=== PATIENT | male | born 1960 | race Two or more races ===

== ENCOUNTER → 2016-12-15 | Outpatient (CLI) | payer MEDICARE ==
[2016-12-15 20:38] LABS: Basophils # (A) 0.2 k/uL (0-0.2); Basophils % (A) 2 %; CH 31.1; CHCM 33.2; Eosinophils # (A) 0.2 k/uL (0-0.7); Eosinophils % (A) 2 %; HCT 48.7 % (39.0-53.0); HDW 2.59; HGB 15.4 gm/dL (13.0-17.5); Luc # (Auto) 0.24; Luc % (Auto) 2; Lymphocytes # (A) 1.3 k/uL (1.0-4.8); Lymphocytes % (A) 13 %; MCH 29.8 pg (25.0-35.0); MCHC 31.7 g/dL (31.0-37.0); MCV 94.2 fL (80.0-100.0); Mean Platelet Volume 9.1; Monocytes # (A) 0.8 k/uL (0-1.0); Monocytes % (A) 8 %; Neutrophils # (A) 7.4 k/uL (1.3-7.7); Neutrophils % (A) 74 %; RBC 5.17 m/uL (4.30-5.90); RDW 14.3 % (11.5-15.5); WBC (Perox) 9.61
[2016-12-15 20:39] LABS: ALT 37 U/L (21-72); AST 24 U/L (17-59); Alkaline Phosphatase 59 U/L (38-126); Anion Gap 7 mmol/L; Blood Urea Nitrogen 17 mg/dL (9-20); Calcium 9.4 mg/dL (8.4-10.2); Carbon Dioxide 33 mmol/L (22-30); Chloride 102 mmol/L (98-107); Cholesterol 146 mg/dL (<200); Glucose 89 mg/dL (74-99); HDL Cholesterol 54 mg/dL (40-60); Non-African American GFR(MDRD) >60 (>60 ml/min/1.73 sqM); Potassium 4.8 mmol/L (3.5-5.1); Sodium 142 mmol/L (137-145); Total Bilirubin 0.6 mg/dL (0.2-1.3); Total Protein 6.3 g/dL (6.3-8.2); Triglycerides 128 mg/dL (<150)
[2016-12-15 21:04] LABS: Hemoglobin A1C 5.6 % (4.2-6.1)
== END | disposition home or self-care (01) ==
LOC: MMGSC 14:59
PROVIDERS: ATTEND Family Medicine
DX: E11.9 Type 2 diabetes mellitus without complications (principal); I50.9 Heart failure, unspecified; Z12.5 Encounter for screening for malignant neoplasm of prostate; I10 Essential (primary) hypertension
CPT/HCPCS: 84439; 80053; 80061; 83036; 84443; 85025; 36415; G0103; 99214

== ENCOUNTER → 2017-02-22 | Outpatient (CLI) | payer MEDICARE | LOC: MMGSC 16:46 | PROVIDERS: ATTEND Family Medicine | DX: R50.9 Fever, unspecified (principal) | CPT/HCPCS: 87086; 99214 ==

== ENCOUNTER 2018-04-09 19:17 | Inpatient (IN) | payer MEDICARE, OTHER ==
--- NOTE | 2018-04-09 20:11 | XR ---
EXAMINATION TYPE: XR KUB DATE OF EXAM: 04/09/2018 COMPARISON: NONE HISTORY: Foreign body in rectum TECHNIQUE: One view abdominal series FINDINGS: The osseous structures are intact. The bowel gas pattern is nonspecific. Curvature the spine noted a nd there is a device overlying the pelvis. Exact location the device is uncertain. May represent repo rt of foreign body. Arthropathy of the hips. IMPRESSION: 1. There is a device overlying the pelvis exact location uncertain likely represents the foreign body suspected within the rectum or bowel.
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
[2018-04-09 20:56] LABS: Basophils % (A) 0 %; Eosinophils # (A) 0.1 k/uL (0-0.7); Eosinophils % (A) 1 %; HCT 40.7 % (39.0-53.0); HGB 13.5 gm/dL (13.0-17.5); Lymphocytes % (A) 10 %; MCH 29.8 pg (25.0-35.0); MCHC 33.2 g/dL (31.0-37.0); MCV 89.8 fL (80.0-100.0); Mean Platelet Volume 7.6; Monocytes # (A) 0.7 k/uL (0-1.0); Monocytes % (A) 7 %; Neutrophils # (A) 8.1 k/uL (1.3-7.7); Neutrophils % (A) 80 %; Platelet Count 216 k/uL (150-450); RBC 4.53 m/uL (4.30-5.90); RDW 15.1 % (11.5-15.5)
[2018-04-09] MEDS ORDERED: NALOXONE 0.4 MG/ML 1 ML VIAL IV PRN ×2 (21:01→23:31)
[2018-04-09 21:04] LABS: INR 1.1 (<1.2); Prothrombin Time 10.4 sec (9.0-12.0)
[2018-04-09 21:07] LABS: ALT 31 U/L (21-72); AST 22 U/L (17-59); Albumin 3.2 g/dL (3.5-5.0); Alkaline Phosphatase 56 U/L (38-126); Anion Gap 6 mmol/L; Blood Urea Nitrogen 17 mg/dL (9-20); Calcium 9.2 mg/dL (8.4-10.2); Carbon Dioxide 39 mmol/L (22-30); Chloride 97 mmol/L (98-107); Digoxin 0.7 ng/mL; Glucose 120 mg/dL (74-99); Magnesium 1.9 mg/dL (1.6-2.3); Potassium 3.9 mmol/L (3.5-5.1); Sodium 142 mmol/L (137-145); Total Bilirubin 0.7 mg/dL (0.2-1.3); Total Protein 5.7 g/dL (6.3-8.2)
[2018-04-09] MEDS ORDERED: SODIUM CHLORIDE 0.9% 1,000 ML IV SCH (21:15)
[2018-04-09] MEDS ORDERED: fentaNYL (PF) 50 MCG/ML 2 ML AMP ONE (21:50)
[2018-04-09] MEDS ORDERED: DEXAMETHASONE SOD PHOS (MDV) 100 MG/10 ML VIAL ONE (21:50)
[2018-04-09] MEDS ORDERED: ROCURONIUM BROMIDE 10 MG/ML 10 ML VIAL IV ONE (21:50)
[2018-04-09] MEDS ORDERED: IV FLUID CONTINUATION 900 ML IV ONE ×2 (21:50)
[2018-04-09] MEDS ORDERED: HEPARIN SODIUM,PORCINE 5,000 UNIT/ML 1 ML VIAL ONE (21:50)
[2018-04-09] MEDS ORDERED: SUCCINYLCHOLINE CHLORIDE 100 MG/5 ML SYR IV ONE (21:50)
[2018-04-09] MEDS ORDERED: LIDOCAINE 1% INJ 10MG/ML (20 ML MDV) ONE (21:50)
[2018-04-09] MEDS ORDERED: PROPOFOL 10 MG/ML 20 ML VIAL IV ONE (21:50)
[2018-04-09] MEDS ORDERED: metroNIDAZOLE-NS PMX 500 MG in SALINE 1 100ML.BAG IVPB STA (21:50)
[2018-04-09] MEDS ORDERED: MIDAZOLAM 2 MG/2 ML VIAL ONE (21:50)
--- NOTE | 2018-04-09 21:56 | P.GSHP ---
History of Present Illness H&P Date: 04/09/18 Chief Complaint: Rectosigmoid foreign body 57-year-old male presents to the ER by EMS with complaints of a rectal foreign body. Apparently this was a shaving cream can and apparently this occurred earlier today. Patient is having some mild pressure sensation in the left lower quadrant. X-rays show this to be transversely located in the lower pelvis likely in the proximal rectum distal sigmoid region. Denies rectal bleeding. No nausea or vomiting. White blood cell count normal. He is afebrile. Heart rate in the low 100s. Patient takes Pradaxa but took his last dose yesterday afternoon or evening. Patient has multiple other comorbidities including morbid obesity with a BMI of 56. His only abdominal surgery as a sleeve gastrectomy performed 6-7 years ago. - Review of Systems Comment: The patient denies any acute changes in vision or hearing, no dysphagia or odynophagia, no chest pain or shortness of breath, no dysuria or hematuria, no headache, no runny nose, no rectal bleeding or melena, no unexplained weight loss Past Medical History Past Medical History: Atrial Fibrillation, Heart Failure, COPD, Diabetes Mellitus, GERD/Reflux, Hyperlipidemia, Hypertension, Neurologic Disorder, Osteoarthritis (OA), Sleep Apnea/CPAP/BIPAP Additional Past Medical History / Comment(s): NIDDM, bilateral lower leg and feet neuropathy, gout-travels everywhere per pt History of Any Multi-Drug Resistant Organisms: MRSA Date of last positivie culture/infection: 2005 or 2007 per pt-tx while pt lived in [place] MDRO Source:: Low back Past Surgical History: Adenoidectomy, Tonsillectomy Additional Past Surgical History / Comment(s): 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 Past Anesthesia/Blood Transfusion Reactions: No Reported Reaction Past Psychological History: No Psychological Hx Reported, Anxiety Smoking Status: Former smoker Past Alcohol Use History: Rare Past Drug Use History: Marijuana - Past Family History Father Family Medical History: Coronary Artery Disease (CAD) (Father at age of 74 from CAD.), Diabetes Mellitus Additional Family Medical History / Comment(s): Father had heart disease. He at age 74 of possible a [place]-pt not sure. Mother Family Medical History: Congestive Heart Failure (CHF) (Mother at age of 72 from congestive heart failure she also has CAD and COPD), COPD, Coronary Artery Disease (CAD) Additional Family Medical History / Comment(s): Mother had heart problems. She at age 72 yrs. She had osteoporosis. Brother(s) Family Medical History: No Reported History (Patient has one brother no major medical problems) Sister(s) Family Medical History: Diabetes Mellitus (Patient has one sister with diabetes mellitus type 2) Daughter(s) Family Medical History: No Reported History (Patient has 2 daughters no major medical problems) Son(s) Family Medical History: No Reported History (Patient has 2 sons no major medical problems and also he has one stepson) Medications and Allergies Home Medications Medication Instructions Recorded Confirmed Type Allopurinol [Zyloprim] 100 mg PO BID 02/10/16 04/09/18 History Budesonide/Formoterol Fumarate 2 puff INHALATION RT-BID 02/10/16 04/09/18 History [Symbicort 80-4.5 Mcg Inhaler] Dabigatran [Pradaxa] 150 mg PO BID 02/10/16 04/09/18 History Fluticasone/Salmeterol [Advair 1 puff INHALATION RT-BID 02/10/16 04/09/18 History 250-50 Diskus] Fluticasone/Vilanterol [Breo 1 puff INHALATION RT-DAILY 02/10/16 04/09/18 History Ellipta 100-25 Mcg Inhaler] Furosemide [Lasix] 80 mg PO BID 02/10/16 04/09/18 History Hydrocodone/Acetaminophen [Blanco 1 tab PO BID 02/10/16 04/09/18 History 7.5-325] Omeprazole [PriLOSEC] 20 mg PO AC-BID 02/10/16 04/09/18 History Simethicone [Gas-X] 125 mg PO QID 02/10/16 04/09/18 History Simvastatin [Zocor] 20 mg PO HS 02/10/16 04/09/18 History Digoxin [Lanoxin] 125 mcg PO DAILY 02/11/16 04/09/18 History glipiZIDE [Glucotrol] 5 mg PO AC-BRKFST 02/11/16 04/09/18 History Ammonium Lactate Lotion 1 applic TOPICAL BID #1 bottle 02/14/16 04/09/18 Rx [Lac-Hydrin 12% Lotion] Gabapentin [Neurontin] 300 mg PO HS #30 cap 02/14/16 04/09/18 Rx Lactulose [Cephulac] 20 gm PO BID #900 ml 02/14/16 04/09/18 Rx Levofloxacin [Levaquin] 750 mg PO HS #2 tab 02/14/16 04/09/18 Rx Metoprolol Tartrate [Lopressor] 50 mg PO BID #60 tab 02/14/16 04/09/18 Rx Montelukast [Singulair] 10 mg PO HS #30 tab 02/14/16 04/09/18 Rx Potassium Chloride [Klor-Con 20] 40 meq PO QAM #60 tab.er.prt 02/14/16 04/09/18 Rx Spironolactone [Aldactone] 25 mg PO BID #60 tab 02/14/16 04/09/18 Rx clonazePAM [KlonoPIN] 1 mg PO BID #0 02/14/16 04/09/18 Rx predniSONE 0 mg PO DIRECTED #40 tab 02/14/16 04/09/18 Rx Allergies Allergy/AdvReac Type Severity Reaction Status Date / Time No Known Allergies Allergy Verified 04/09/18 19:24 Surgical - Exam Vital Signs Temp Pulse Resp BP Pulse Ox 98.1 F 103 H 20 153/92 93 L 04/09/18 19:19 04/09/18 19:19 04/09/18 19:19 04/09/18 19:19 04/09/18 19:19 Physical exam: General: Well-developed, well-nourished HEENT: Normocephalic, sclerae nonicteric Abdomen: Mild left lower quadrant tenderness, nondistended Extremities: No edema Neuro: Alert and oriented Results - Labs 04/09/18 20:46 04/09/18 20:46 Abnormal Lab Results - Last 24 Hours (Table) 04/09/18 04/09/18 Range/Units 20:46 20:46 Neutrophils # 8.1 H (1.3-7.7) k/uL Chloride 97 L (98-107) mmol/L Carbon Dioxide 39 H (22-30) mmol/L Glucose 120 H (74-99) mg/dL Total Protein 5.7 L (6.3-8.2) g/dL Albumin 3.2 L (3.5-5.0) g/dL Diabetes panel 04/09/18 Range/Units 20:46 Sodium 142 (137-145) mmol/L Potassium 3.9 (3.5-5.1) mmol/L Chloride 97 L (98-107) mmol/L Carbon Dioxide 39 H (22-30) mmol/L BUN 17 (9-20) mg/dL Creatinine 1.00 (0.66-1.25) mg/dL Glucose 120 H (74-99) mg/dL Calcium 9.2 (8.4-10.2) mg/dL AST 22 (17-59) U/L ALT 31 (21-72) U/L Alkaline Phosphatase 56 (38-126) U/L Total Protein 5.7 L (6.3-8.2) g/dL Albumin 3.2 L (3.5-5.0) g/dL Calcium panel 04/09/18 Range/Units 20:46 Calcium 9.2 (8.4-10.2) mg/dL Albumin 3.2 L (3.5-5.0) g/dL Pituitary panel 04/09/18 Range/Units 20:46 Sodium 142 (137-145) mmol/L Potassium 3.9 (3.5-5.1) mmol/L Chloride 97 L (98-107) mmol/L Carbon Dioxide 39 H (22-30) mmol/L BUN 17 (9-20) mg/dL Creatinine 1.00 (0.66-1.25) mg/dL Glucose 120 H (74-99) mg/dL Calcium 9.2 (8.4-10.2) mg/dL Adrenal panel 04/09/18 Range/Units 20:46 Sodium 142 (137-145) mmol/L Potassium 3.9 (3.5-5.1) mmol/L Chloride 97 L (98-107) mmol/L Carbon Dioxide 39 H (22-30) mmol/L BUN 17 (9-20) mg/dL Creatinine 1.00 (0.66-1.25) mg/dL Glucose 120 H (74-99) mg/dL Calcium 9.2 (8.4-10.2) mg/dL Total Bilirubin 0.7 (0.2-1.3) mg/dL AST 22 (17-59) U/L ALT 31 (21-72) U/L Alkaline Phosphatase 56 (38-126) U/L Total Protein 5.7 L (6.3-8.2) g/dL Albumin 3.2 L (3.5-5.0) g/dL Assessment and Plan (1) Foreign body in rectosigmoid (junction) Narrative/Plan: Clinical scenario discussed in detail with the patient. Plan at this time is to proceed with attempts at removal of foreign body via rectum. This will be performed using general anesthesia with the patient in lithotomy. Flexible sigmoidoscopy will be utilized to help locate this foreign body. If this is too proximal and we are unable to bring this distally patient will require laparotomy and possible colotomy with either primary closure or colostomy. We will provide emergent dose of Pradaxa reversal in the form of idarucizumab. Risks of bleeding, infection, abscess, leak if a colotomy closure takes place, hernia, delayed perforation, coagulopathy from the Pradaxa reversal, UT, PE, DVT , and . Patient understands and wishes to proceed. Current Visit: Yes Status: Acute Code(s): T18.5XXA - FOREIGN BODY IN ANUS AND RECTUM, INITIAL ENCOUNTER SNOMED Code(s): 96051158
[2018-04-09] MEDS ORDERED: SODIUM CHLORIDE 0.9% 100 ML with ceFAZolin 3,000 MG IV ONE ×2 (22:15)
[2018-04-09] MEDS: metroNIDAZOLE-NS PMX 500 MG in SALINE 1 100ML.BAG IVPB STA ×2 (22:20→23:21)
[2018-04-09] MEDS ORDERED: ONDANSETRON 4 MG/2 ML VIAL IVP PRN (23:31)
--- NOTE | 2018-04-09 23:39 | P.OP ---
Date of Procedure: 04/09/18 Procedure(s) Performed: PREOPERATIVE DIAGNOSIS: Rectosigmoid foreign body POSTOPERATIVE DIAGNOSIS: Sigmoid colon foreign body PROCEDURE: Flexible sigmoidoscopy, exploratory laparotomy, colotomy, removal sigmoid colon foreign body SURGEON: Delta EBL: 25 mL ANESTHESIA: General COMPLICATIONS: None OPERATIVE PROCEDURE: Patient place in the operative table in the supine position. The patient was placed under general anesthesia. The patient was then placed in lithotomy. The flexible sigmoidoscope was inserted into the anus. There was some mild irritation of the rectal and distal sigmoid mucosa. The bottom of the canister was identified at 25 cm from the anal verge. There was no lip on the can to grasp it was decided at that point to proceed with laparotomy. The abdomen was prepped and draped in usual sterile fashion. A vertical incision was made extending just above the umbilicus.. The fascia was divided as well. Thankfully the foreign body was palpable immediately upon insertion into the abdominal cavity. In fact it was at the most superior aspect of the loop of the sigmoid colon. The colon here was of adequate diameter. The distal sigmoid colon and rectum was inspected and there was no evidence of serosal tears or perforation. A longitudinal colotomy took place after the bowel was clamped proximally. The foreign body was easily removed through that opening. The defect was then closed transversely using a running submucosal and mucosal layer of 3-0 Vicryl suture. A imbricating 3-0 GI silk Lambert searcher was then utilized in an interrupted fashion over that. There was air within the bowel and with the saline present in the abdomen I inspected for leak and none was seen. A portion of pericolonic fat was then tacked back over the closure. The diameter was in excess of what was present previously. Further irrigation took place. No bleeding was seen. The midline fascia was then reapproximated using 2 separate double-stranded #1 PDS sutures. A drain was placed anterior to the fascial closure exiting from the left lower quadrant and sutured to the skin using a 3-0 silk stitch. The subcutaneous tissues were closed using 3-0 Vicryl sutures. The skin was then closed using louise. Sterile dressings were then applied. DISPOSITION: Stable to recovery room
[2018-04-10] MEDS ORDERED: PROPOFOL 100 ML IV ONE (00:05)
[2018-04-10 00:06] LABS: Glucose,Whole Blood 123 mg/dL (75-99)
[2018-04-10] MEDS: D5-0.45% NACL WITH KCL 20MEQ/L 1,000 ML IV SCH ×3 (00:08→20:32)
[2018-04-10] MEDS: IDARUCIZUMAB 2.5 GM in EMPTY BAG 1 BAG IV SCH ×2 (00:54→08:10)
[2018-04-10 00:59] LABS: ABG Base Excess 13.6 mmol/L; ABG HCO3 39 mmol/L (21-25); ABG Oxygen Saturation 99.1 % (94-97); ABG PCO2 64 mmHg (35-45); ABG PH 7.39 (7.35-7.45); ABG PO2 311 mmHg (83-108); ABG TCO2 41 mmol/L (19-24)
[2018-04-10] MEDS: PIPERACILLIN-TAZOBACTAM 3.375 GM in DEXTROSE/WATER 1 50ML.BAG IVPB SCH ×4 (01:15→23:17)
[2018-04-10] MEDS: HEPARIN SODIUM,PORCINE 5,000 UNIT/ML 1 ML VIAL SQ SCH ×4 (01:16→23:16)
[2018-04-10] MEDS: PROPOFOL 1,000 MG in EMPTY BAG 1 BAG IV SCH ×13 (01:17→23:54)
--- NOTE | 2018-04-10 02:26 | XR ---
EXAMINATION TYPE: XR chest 1V portable DATE OF EXAM: 04/10/2018 COMPARISON: 07/13/2016 HISTORY: Intubation TECHNIQUE: Single frontal view of the chest is obtained. FINDINGS: Endotracheal tube has tip 4 to 5 cm from the wilbur. There is no gross heart failure. Ther e are chest leads. IMPRESSION: No heart failure. Endotracheal tube is in fairly good position. Cardiomegaly. No change.
[2018-04-10 05:06] LABS: Basophils % (A) 0 %; Eosinophils % (A) 0 %; HCT 45.9 % (39.0-53.0); HGB 14.8 gm/dL (13.0-17.5); Lymphocytes # (A) 0.6 k/uL (1.0-4.8); Lymphocytes % (A) 6 %; MCH 29.6 pg (25.0-35.0); MCHC 32.3 g/dL (31.0-37.0); MCV 91.7 fL (80.0-100.0); Mean Platelet Volume 7.3; Monocytes # (A) 0.5 k/uL (0-1.0); Monocytes % (A) 5 %; Neutrophils # (A) 8.5 k/uL (1.3-7.7); Neutrophils % (A) 88 %; Platelet Count 204 k/uL (150-450); RBC 5.01 m/uL (4.30-5.90); WBC 9.7 k/uL (3.8-10.6)
[2018-04-10] MEDS: HYDROmorphone 0.5 MG/0.5 ML SYRINGE IVP PRN ×3 (05:09→11:48)
[2018-04-10 05:21] LABS: ALT 29 U/L (21-72); AST 23 U/L (17-59); Albumin 3.5 g/dL (3.5-5.0); Alkaline Phosphatase 61 U/L (38-126); Anion Gap 10 mmol/L; Blood Urea Nitrogen 18 mg/dL (9-20); Calcium 8.9 mg/dL (8.4-10.2); Carbon Dioxide 35 mmol/L (22-30); Chloride 96 mmol/L (98-107); Glucose 167 mg/dL (74-99); Magnesium 1.9 mg/dL (1.6-2.3); Phosphorus 3.7 mg/dL (2.5-4.5); Potassium 4.6 mmol/L (3.5-5.1); Sodium 141 mmol/L (137-145); Total Bilirubin 0.6 mg/dL (0.2-1.3); Total Protein 6.1 g/dL (6.3-8.2)
[2018-04-10] MEDS ORDERED: Magnesium Replacement Protocol 1 EACH MISC MISCELLANE PRN (06:18)
[2018-04-10] MEDS: MAGNESIUM SULFATE-D5W PMX 1 GM in DEXTROSE/WATER 1 100ML.BAG IVPB SCH ×2 (06:31→09:22)
[2018-04-10 07:34] LABS: ABG HCO3 37 mmol/L (21-25); ABG Oxygen Saturation 88.6 % (94-97); ABG PCO2 63 mmHg (35-45); ABG PH 7.38 (7.35-7.45); ABG PO2 58 mmHg (83-108); ABG TCO2 39 mmol/L (19-24)
[2018-04-10] MEDS: PANTOPRAZOLE 40 MG/10 ML VIAL IV SCH (09:21)
[2018-04-10] MEDS: FUROSEMIDE 10 MG/ML 4 ML VIAL IV SCH ×2 (09:33→20:31)
[2018-04-10 10:57] LABS: Amorphous Sediment,Urine Rare /hpf; Appearance,Urine Clear (Clear); Bilirubin,Urine Negative (Negative); Blood,Urine Negative (Negative); Color,Urine Light Yellow; Glucose,Urine (UA) Negative (Negative); Ketones,Urine Negative (Negative); Leukocyte Esterase,Urine Trace (Negative); Mucus,Urine Rare /hpf; Nitrite,Urine Negative (Negative); Protein,Urine 1+ (Negative); RBC,Urine 2 /hpf (0-5); Specific Gravity,Urine 1.009 (1.001-1.035); Urobilinogen,Urine <2.0 mg/dL (<2.0); WBC,Urine 2 /hpf (0-5)
[2018-04-10] MEDS ORDERED: IPRATROPIUM-ALBUTEROL 3 ML NEB INHALATION PRN (11:20)
[2018-04-10] MEDS: IPRATROPIUM-ALBUTEROL 3 ML NEB INHALATION SCH ×4 (11:21→23:57)
[2018-04-10] MEDS: CHLORHEXIDINE GLUCONATE 15 ML CUP MUCOUS MEM SCH ×2 (11:48→20:31)
[2018-04-10] MEDS: hydrALAZINE HCL 20 MG/ML 1 ML VIAL IVP PRN ×2 (11:49→19:44)
[2018-04-10 11:54] LABS: Glucose,Whole Blood 152 mg/dL (75-99)
--- NOTE | 2018-04-10 12:31 | XR ---
EXAMINATION TYPE: XR chest 1V portable DATE OF EXAM: 04/10/2018 COMPARISON: 04/10/2018 HISTORY: Tube placement TECHNIQUE: Single frontal view of the chest is obtained. FINDINGS: NG tube appears with the tip in the left upper quadrant likely within the gastric fundus. Bilateral consolidation and pleural effusion noted. ET tube stable. Due to patient positioning rotati on assessment of the right upper lobe is nondiagnostic. Heart enlarged and stable. IMPRESSION: 1. Limited exam demonstrates the tip of the NG tube within the left upper quadrant likely within the gastric fundus. 2. Stable pleural-parenchymal changes.
--- NOTE | 2018-04-10 12:47 | P.PN ---
Subjective Progress Note Date: 04/10/18 Principal diagnosis: Sigmoid colon foreign-body Patient remains on the ventilator. Apparently attempts today at weaning were unsuccessful. He is hemostatically stable however. White blood cell count 9.7 hemoglobin 14.8. Objective - Vital Signs Vital signs: Vital Signs Temp 98.3 F 04/10/18 08:00 Pulse 77 04/10/18 11:39 Resp 16 04/10/18 10:00 BP 163/93 04/10/18 10:00 Pulse Ox 94 L 04/10/18 10:00 Intake & Output 04/09/18 04/10/18 04/10/18 18:59 06:59 18:59 Intake Total 1959.30 450 Output Total 490 550 Balance 1469.30 -100 Weight 192.777 kg Intake: IV 1662.5 450 D5-0.45% NaCl with KCl 750 450 20Meq/l 1,000 ml @ 50 mls /hr IV .Q20H NIKA Rx#: [id number] Piperacillin-Tazobactam 3 62.5 .375 gm In Dextrose/Water 1 50ml.bag @ 12.5 mls/hr IVPB Q8HR NIKA Rx#: [id number] Intake, IV Titration 296.80 Amount Propofol 1,000 mg In 296.80 Empty Bag 1 bag @ Titrate IV .Q0M NIKA Rx#: [id number] Output: Drainage 20 Left Lower Abdomen 20 Urine 450 550 Estimated Blood Loss 20 Other: Voiding Method Indwelling Catheter Indwelling Catheter - Exam Abdomen: Soft, nondistended, incision with dressing intact - Labs CBC & Chem 7: 04/10/18 04:45 04/10/18 04:45 Labs: Abnormal Lab Results - Last 24 Hours (Table) 04/09/18 04/09/18 04/10/18 Range/Units 20:46 20:46 00:02 Neutrophils # 8.1 H (1.3-7.7) k/uL Lymphocytes # (1.0-4.8) k/uL ABG pCO2 (35-45) mmHg ABG pO2 (83-108) mmHg ABG HCO3 (21-25) mmol/L ABG Total CO2 (19-24) mmol/L ABG O2 Saturation (94-97) % Chloride 97 L (98-107) mmol/L Carbon Dioxide 39 H (22-30) mmol/L Glucose 120 H (74-99) mg/dL POC Glucose (mg/dL) 123 H (75-99) mg/dL Total Protein 5.7 L (6.3-8.2) g/dL Albumin 3.2 L (3.5-5.0) g/dL Urine Protein (Negative) Ur Leukocyte Esterase (Negative) Amorphous Sediment (None) /hpf Urine Mucus (None) /hpf 04/10/18 04/10/18 04/10/18 Range/Units 00:52 04:45 04:45 Neutrophils # 8.5 H (1.3-7.7) k/uL Lymphocytes # 0.6 L (1.0-4.8) k/uL ABG pCO2 64 H (35-45) mmHg ABG pO2 311 H (83-108) mmHg ABG HCO3 39 H (21-25) mmol/L ABG Total CO2 41 H (19-24) mmol/L ABG O2 Saturation 99.1 H (94-97) % Chloride 96 L (98-107) mmol/L Carbon Dioxide 35 H (22-30) mmol/L Glucose 167 H (74-99) mg/dL POC Glucose (mg/dL) (75-99) mg/dL Total Protein 6.1 L (6.3-8.2) g/dL Albumin (3.5-5.0) g/dL Urine Protein (Negative) Ur Leukocyte Esterase (Negative) Amorphous Sediment (None) /hpf Urine Mucus (None) /hpf 04/10/18 04/10/18 04/10/18 Range/Units 07:17 10:45 11:53 Neutrophils # (1.3-7.7) k/uL Lymphocytes # (1.0-4.8) k/uL ABG pCO2 63 H (35-45) mmHg ABG pO2 58 L (83-108) mmHg ABG HCO3 37 H (21-25) mmol/L ABG Total CO2 39 H (19-24) mmol/L ABG O2 Saturation 88.6 L (94-97) % Chloride (98-107) mmol/L Carbon Dioxide (22-30) mmol/L Glucose (74-99) mg/dL POC Glucose (mg/dL) 152 H (75-99) mg/dL Total Protein (6.3-8.2) g/dL Albumin (3.5-5.0) g/dL Urine Protein 1+ H (Negative) Ur Leukocyte Esterase Trace H (Negative) Amorphous Sediment Rare H (None) /hpf Urine Mucus Rare H (None) /hpf Assessment and Plan (1) Foreign body in rectosigmoid (junction) Narrative/Plan: Continue weaning per pulmonary. Continue antibiotics. Keep nothing by mouth. Current Visit: Yes Status: Acute Code(s): T18.5XXA - FOREIGN BODY IN ANUS AND RECTUM, INITIAL ENCOUNTER SNOMED Code(s): 07652361
[2018-04-10] MEDS: INSULIN ASPART 100 UNIT/ML 1 ML 10 ML VIAL SQ SCH ×3 (12:53→23:49)
--- NOTE | 2018-04-10 13:16 | P.CNPUL ---
History of Present Illness Consult date: 04/10/18 Requesting physician: Jan Sorenson Reason for consult: other (Intensive care unit management patient is on mechanical ventilation.) Chief complaint: Rectal foreign body History of present illness: This is a 57-year-old white male with history of multiple medical problems including paroxysmal atrial fibrillation, COPD, and just of heart failure, morbid obesity, type 2 diabetes, hypertension, degenerative joint disease and osteoarthritis, obstructive sleep apnea syndrome, neuropathy, gout, patient presented to the ER last night with complaints of rectal foreign body. Patient came in with severe pressure sensation in the rectum, and pain in the left lower quadrant. X-rays of the abdomen showed transverse location of the shaving cream can in the lower pelvis I cleaned in the proximal rectum/distal sigmoid region. There was no evidence of rectal bleeding, no nausea no vomiting , he had no signs and symptoms of sepsis or infection. Patient was taken to the operating room, attempts was made to retrieve the foreign body with sigmoidoscopy, however this was unsuccessful. Hence the patient had initially flexible sigmoidoscopy, but this was followed by exploratory laparotomy colotomy removal of sigmoid colon foreign body. Patient required intubation and mechanical ventilation, transferred to the ICU from the operating room on mechanical ventilation, and I was asked to see him on consultation. Patient is presently sedated, on mechanical ventilation, and his arterial blood gases this morning is very marginal. PO2 was 58 pCO2 was 63 pH was 7.38 and this was on a 50% FiO2. Chest x-ray showed mostly bibasilar atelectasis and possibly small effusions, hence ventilator settings were changed, and felt that the patient is not quite ready to be weaned at this point. His PEEP was increased to 8, tidal volume was increased to 600 patient was kept on assist control rate of 16 and FiO2 at 50%. Repeat ABG is pending. Review of Systems ROS unobtainable: due to endotracheal tube Past Medical History Past Medical History: Atrial Fibrillation, Heart Failure, COPD, Diabetes Mellitus, GERD/Reflux, Hyperlipidemia, Hypertension, Neurologic Disorder, Osteoarthritis (OA), Sleep Apnea/CPAP/BIPAP Additional Past Medical History / Comment(s): NIDDM, bilateral lower leg and feet neuropathy, gout-travels everywhere per pt History of Any Multi-Drug Resistant Organisms: MRSA Date of last positivie culture/infection: 2005 or 2007 per pt-tx while pt lived in [place] MDRO Source:: Low back Past Surgical History: Adenoidectomy, Tonsillectomy Additional Past Surgical History / Comment(s): 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 Past Anesthesia/Blood Transfusion Reactions: No Reported Reaction Past Psychological History: No Psychological Hx Reported, Anxiety Smoking Status: Former smoker Past Alcohol Use History: Rare Past Drug Use History: Marijuana - Past Family History Father Family Medical History: Coronary Artery Disease (CAD) (Father at age of 74 from CAD.), Diabetes Mellitus Additional Family Medical History / Comment(s): Father had heart disease. He at age 74 of possible a SD-pt not sure. Mother Family Medical History: Congestive Heart Failure (CHF) (Mother at age of 72 from congestive heart failure she also has CAD and COPD), COPD, Coronary Artery Disease (CAD) Additional Family Medical History / Comment(s): Mother had heart problems. She at age 72 yrs. She had osteoporosis. Brother(s) Family Medical History: No Reported History (Patient has one brother no major medical problems) Sister(s) Family Medical History: Diabetes Mellitus (Patient has one sister with diabetes mellitus type 2) Daughter(s) Family Medical History: No Reported History (Patient has 2 daughters no major medical problems) Son(s) Family Medical History: No Reported History (Patient has 2 sons no major medical problems and also he has one stepson) Medications and Allergies Home Medications Medication Instructions Recorded Confirmed Type Allopurinol [Zyloprim] 100 mg PO BID 02/10/16 04/09/18 History Budesonide/Formoterol Fumarate 2 puff INHALATION RT-BID 02/10/16 04/09/18 History [Symbicort 80-4.5 Mcg Inhaler] Dabigatran [Pradaxa] 150 mg PO BID 02/10/16 04/09/18 History Fluticasone/Salmeterol [Advair 1 puff INHALATION RT-BID 02/10/16 04/09/18 History 250-50 Diskus] Fluticasone/Vilanterol [Bre[place] 1 puff INHALATION RT-DAILY 02/10/16 04/09/18 History Ellipta 100-25 Mcg Inhaler] Furosemide [Lasix] 80 mg PO BID 02/10/16 04/09/18 History Hydrocodone/Acetaminophen [[place] 1 tab PO BID 02/10/16 04/09/18 History 7.5-325] Omeprazole [PriLOSEC] 20 mg PO AC-BID 02/10/16 04/09/18 History Simethicone [Gas-X] 125 mg PO QID 02/10/16 04/09/18 History Simvastatin [Zocor] 20 mg PO HS 02/10/16 04/09/18 History Digoxin [Lanoxin] 125 mcg PO DAILY 02/11/16 04/09/18 History glipiZIDE [Glucotrol] 5 mg PO AC-BRKFST 02/11/16 04/09/18 History Ammonium Lactate Lotion 1 applic TOPICAL BID #1 bottle 02/14/16 04/09/18 Rx [Lac-Hydrin 12% Lotion] Gabapentin [Neurontin] 300 mg PO HS #30 cap 02/14/16 04/09/18 Rx Lactulose [Cephulac] 20 gm PO BID #900 ml 02/14/16 04/09/18 Rx Levofloxacin [Levaquin] 750 mg PO HS #2 tab 02/14/16 04/09/18 Rx Metoprolol Tartrate [Lopressor] 50 mg PO BID #60 tab 02/14/16 04/09/18 Rx Montelukast [Singulair] 10 mg PO HS #30 tab 02/14/16 04/09/18 Rx Potassium Chloride [Klor-Con 20] 40 meq PO QAM #60 tab.er.prt 02/14/16 04/09/18 Rx Spironolactone [Aldactone] 25 mg PO BID #60 tab 02/14/16 04/09/18 Rx clonazePAM [KlonoPIN] 1 mg PO BID #0 02/14/16 04/09/18 Rx predniSONE 0 mg PO DIRECTED #40 tab 02/14/16 04/09/18 Rx Allergies Allergy/AdvReac Type Severity Reaction Status Date / Time No Known Allergies Allergy Verified 04/09/18 19:24 Physical Exam Vitals: Vital Signs Temp Pulse Resp BP Pulse Ox 04/10/18 11:39 77 04/10/18 11:21 92 04/10/18 10:00 85 16 163/93 94 L 04/10/18 09:00 79 20 156/89 94 L 04/10/18 08:00 98.3 F 78 21 166/100 93 L 04/10/18 07:00 82 18 171/88 91 L 04/10/18 06:00 95 17 152/92 99 04/10/18 05:00 80 19 170/98 99 04/10/18 04:00 97.6 F 81 17 135/72 91 L 04/10/18 03:00 79 16 126/65 94 L 04/10/18 02:30 79 15 110/72 92 L 04/10/18 02:00 74 16 119/67 93 L 04/10/18 01:30 90 16 122/77 92 L 04/10/18 01:20 92 16 127/66 93 L 04/10/18 01:10 92 16 126/72 97 04/10/18 01:00 70 16 126/72 100 04/10/18 00:50 69 16 124/79 100 04/10/18 00:40 72 16 121/78 100 04/10/18 00:30 78 16 99 04/10/18 00:20 80 16 130/73 100 04/10/18 00:10 77 16 135/84 97 04/10/18 00:02 97.7 F 126/74 04/09/18 23:33 101/67 04/09/18 21:23 98.7 F 101 H 20 159/71 98 04/09/18 20:24 100 18 155/67 97 04/09/18 19:19 98.1 F 103 H 20 153/92 93 L Intake and Output 04/09/18 04/10/18 04/10/18 22:59 06:59 14:59 Intake Total 150 1809.30 750 Output Total 490 550 Balance 150 1319.30 200 Intake: IV 150 1512.5 450 D5-0.45% NaCl with KCl 750 450 20Meq/l 1,000 ml @ 50 mls /hr IV .Q20H NIKA Rx#: [id number] Piperacillin-Tazobactam 3 62.5 .375 gm In Dextrose/Water 1 50ml.bag @ 12.5 mls/hr IVPB Q8HR NIKA Rx#: [id number] Intake, IV Titration 296.80 300 Amount Propofol 1,000 mg In 296.80 300 Empty Bag 1 bag @ Titrate IV .Q0M NIKA Rx#: [id number] Output: Drainage 20 Left Lower Abdomen 20 Urine 450 550 Estimated Blood Loss 20 Other: Voiding Method Indwelling Catheter Indwelling Catheter Weight 192.777 kg Physical Exam: Revealed a 57-year-old white male, obese, on mechanical ventilation, sedated, on propofol, in no distress. Head: Atraumatic, normocephalic. HEENT:[Neck is supple.] [No neck masses.] [No thyromegaly.] [No JVD.] PERRLA, EOMI, no icterus, endotracheal tube is intact, orogastric tube is intact. Chest: [Symmetrical chest expansion, diminished breath sounds at the bases minimal crackles at the bases noted. No rhonchi, no wheezes. Cardiac Exam: [Normal S1 and S2, no S3 gallop, no murmur.] Abdomen: [Obese, Soft, incision and dressing are intact, no rebound, no guarding. Diminished bowel sounds..] Extremities: [Chronic venous stasis changes noted bilaterally, 2+ bipedal edema , diminished distal pulses bilaterally.] Neurological Exam: Cannot be assessed, patient is fully sedated on propofol. Psychiatric: Cannot be assessed. Musculoskeletal cannot be assessed. Results - Laboratory Findings CBC and BMP: 04/10/18 04:45 04/10/18 04:45 ABG ABG pH 7.38 (7.35-7.45) 04/10/18 07:17 ABG pCO2 63 mmHg (35-45) H 04/10/18 07:17 ABG pO2 58 mmHg (83-108) L 04/10/18 07:17 ABG O2 Saturation 88.6 % (94-97) L 04/10/18 07:17 PT/INR, D-dimer PT 10.4 sec (9.0-12.0) 04/09/18 20:46 INR 1.1 (<1.2) 04/09/18 20:46 Abnormal lab findings: Abnormal Labs 04/09/18 04/09/18 04/10/18 20:46 20:46 00:02 Neutrophils # 8.1 H Lymphocytes # ABG pCO2 ABG pO2 ABG HCO3 ABG Total CO2 ABG O2 Saturation Chloride 97 L Carbon Dioxide 39 H Glucose 120 H POC Glucose (mg/dL) 123 H Total Protein 5.7 L Albumin 3.2 L Urine Protein Ur Leukocyte Esterase Amorphous Sediment Urine Mucus 04/10/18 04/10/18 04/10/18 00:52 04:45 04:45 Neutrophils # 8.5 H Lymphocytes # 0.6 L ABG pCO2 64 H ABG pO2 311 H ABG HCO3 39 H ABG Total CO2 41 H ABG O2 Saturation 99.1 H Chloride 96 L Carbon Dioxide 35 H Glucose 167 H POC Glucose (mg/dL) Total Protein 6.1 L Albumin Urine Protein Ur Leukocyte Esterase Amorphous Sediment Urine Mucus 04/10/18 04/10/18 04/10/18 07:17 10:45 11:53 Neutrophils # Lymphocytes # ABG pCO2 63 H ABG pO2 58 L ABG HCO3 37 H ABG Total CO2 39 H ABG O2 Saturation 88.6 L Chloride Carbon Dioxide Glucose POC Glucose (mg/dL) 152 H Total Protein Albumin Urine Protein 1+ H Ur Leukocyte Esterase Trace H Amorphous Sediment Rare H Urine Mucus Rare H - Diagnostic Findings Chest x-ray: image reviewed (As noted in HPI.) Assessment and Plan Assessment: Impression: 1 postoperative hypoxic and hypercapnic respiratory failure, unexpected, mostly related to COPD, morbid obesity, obesity hypoventilation syndrome, bibasilar atelectasis and possibly some component of diastolic congestive heart failure. 2 chronic obstructive pulmonary disease patient is usually on bronchodilators, and at times on prednisone, hence the patient will be placed back on DuoNeb, Pulmicort, and Perforomist. 3 postoperative atelectasis, expected. 4 suspect small bilateral pleural effusions secondary to diastolic congestive heart failure. 5 status post flexible sigmoidoscopy, exploratory laparotomy, colotomy, removal of sigmoid colon foreign body, postoperative day #1. 6 multiple comorbidities including paroxysmal atrial fibrillation, chronic congestive heart failure, diastolic in nature, type 2 diabetes, hyperlipidemia, benign essential hypertension, osteoarthritis, obstructive sleep apnea syndrome , and diabetic neuropathy. As well as gout. Recommendation: Clearly the patient is not ready for weaning at this point, hence I have made adjustments on his ventilator settings, increased the PEEP to 8, increased his tidal volume, adjusted his flow rates and his I: E ratio. Reviewed his peak and plateau pressures, patient will be kept on bronchodilators , antibiotics as per surgery, and we will address weeding and possibly extubation in the next 24 hours. In the meantime addressed the GI and DVT prophylaxis. Time with Patient: Greater than 30
--- NOTE | 2018-04-10 15:57 | P.CONS ---
History of Present Illness - Reason for Consult Consult date: 04/10/18 Medical management for multiple comorbidities - Chief Complaint Rectal foreign body - History of Present Illness This is 57 years old morbidly obese male who presented to the emergency department with rectal pain patient admitted insertion of shaving cream can in the rectum and x-ray confirmed the diagnosis patient was taken to the operating room with exploratory laparotomy was done by Dr. Hyatt patient was kept on the ventilator due to difficulty weaning off the ventilator patient was admitted to the ICU and currently patient is sedated on full vent support with oxygen 50% and PEEP of 8 and respiratory rate of 16. Patient was following commands to the nursing staff when he was off sedation earlier this morning. Patient has compensated past medical history including paroxysmal atrial fibrillation on a blood thinner at home, COPD, congestive heart failure, morbid obesity, diabetes type 2 insulin-dependent, hypertension and hyperlipidemia. Patient had a history also of obstructive sleep apnea Review of Systems Unable to obtain due to sedation Past Medical History Past Medical History: Atrial Fibrillation, Heart Failure, COPD, Diabetes Mellitus, GERD/Reflux, Hyperlipidemia, Hypertension, Neurologic Disorder, Osteoarthritis (OA), Sleep Apnea/CPAP/BIPAP Additional Past Medical History / Comment(s): NIDDM, bilateral lower leg and feet neuropathy, gout-travels everywhere per pt History of Any Multi-Drug Resistant Organisms: MRSA Year Discovered:: 2005 or 2007 per pt-tx while pt lived in [place] MDRO Source:: Low back Past Surgical History: Adenoidectomy, Tonsillectomy Additional Past Surgical History / Comment(s): 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 Past Anesthesia/Blood Transfusion Reactions: No Reported Reaction Past Psychological History: No Psychological Hx Reported, Anxiety Smoking Status: Former smoker Past Alcohol Use History: Rare Past Drug Use History: Marijuana - Past Family History Father Family Medical History: Coronary Artery Disease (CAD) (Father at age of 74 from CAD.), Diabetes Mellitus Additional Family Medical History / Comment(s): Father had heart disease. He at age 74 of possible a OR-pt not sure. Mother Family Medical History: Congestive Heart Failure (CHF) (Mother at age of 72 from congestive heart failure she also has CAD and COPD), COPD, Coronary Artery Disease (CAD) Additional Family Medical History / Comment(s): Mother had heart problems. She at age 72 yrs. She had osteoporosis. Brother(s) Family Medical History: No Reported History (Patient has one brother no major medical problems) Sister(s) Family Medical History: Diabetes Mellitus (Patient has one sister with diabetes mellitus type 2) Daughter(s) Family Medical History: No Reported History (Patient has 2 daughters no major medical problems) Son(s) Family Medical History: No Reported History (Patient has 2 sons no major medical problems and also he has one stepson) Medications and Allergies Home Medications Medication Instructions Recorded Confirmed Type Allopurinol [Zyloprim] 100 mg PO BID 02/10/16 04/09/18 History Budesonide/Formoterol Fumarate 2 puff INHALATION RT-BID 02/10/16 04/09/18 History [Symbicort 80-4.5 Mcg Inhaler] Dabigatran [Pradaxa] 150 mg PO BID 02/10/16 04/09/18 History Fluticasone/Salmeterol [Advair 1 puff INHALATION RT-BID 02/10/16 04/09/18 History 250-50 Diskus] Furosemide [Lasix] 80 mg PO BID 02/10/16 04/09/18 History Hydrocodone/Acetaminophen [[place] 1 tab PO BID 02/10/16 04/09/18 History 7.5-325] Omeprazole [PriLOSEC] 20 mg PO AC-BID 02/10/16 04/09/18 History Simvastatin [Zocor] 20 mg PO HS 02/10/16 04/09/18 History Digoxin [Lanoxin] 125 mcg PO DAILY 02/11/16 04/09/18 History glipiZIDE [Glucotrol] 5 mg PO AC-BRKFST 02/11/16 04/09/18 History Gabapentin [Neurontin] 300 mg PO HS #30 cap 02/14/16 04/09/18 Rx Potassium Chloride [Klor-Con 20] 40 meq PO QAM #60 tab.er.prt 02/14/16 04/09/18 Rx clonazePAM [KlonoPIN] 1 mg PO BID #0 02/14/16 04/09/18 Rx Metoprolol Tartrate [Lopressor] 50 mg PO BID 04/10/18 04/10/18 History Allergies Allergy/AdvReac Type Severity Reaction Status Date / Time No Known Allergies Allergy Verified 04/10/18 13:23 Physical Exam Vitals: Vital Signs Temp Pulse Resp BP Pulse Ox 04/10/18 13:59 81 16 119/67 96 04/10/18 13:00 83 16 160/90 95 04/10/18 12:00 98.5 F 91 15 150/93 95 04/10/18 11:39 77 04/10/18 11:21 92 04/10/18 11:00 91 16 166/93 97 04/10/18 10:00 85 16 163/93 94 L 04/10/18 09:00 79 20 156/89 94 L 04/10/18 08:00 98.3 F 78 21 166/100 93 L 04/10/18 07:00 82 18 171/88 91 L 04/10/18 06:00 95 17 152/92 99 04/10/18 05:00 80 19 170/98 99 04/10/18 04:00 97.6 F 81 17 135/72 91 L 04/10/18 03:00 79 16 126/65 94 L 04/10/18 02:30 79 15 110/72 92 L 04/10/18 02:00 74 16 119/67 93 L 04/10/18 01:30 90 16 122/77 92 L 04/10/18 01:20 92 16 127/66 93 L 04/10/18 01:10 92 16 126/72 97 04/10/18 01:00 70 16 126/72 100 04/10/18 00:50 69 16 124/79 100 04/10/18 00:40 72 16 121/78 100 04/10/18 00:30 78 16 99 04/10/18 00:20 80 16 130/73 100 04/10/18 00:10 77 16 135/84 97 04/10/18 00:02 97.7 F 126/74 04/09/18 23:33 101/67 04/09/18 21:23 98.7 F 101 H 20 159/71 98 04/09/18 20:24 100 18 155/67 97 04/09/18 19:19 98.1 F 103 H 20 153/92 93 L Intake and Output 04/10/18 04/10/18 04/10/18 06:59 14:59 22:59 Intake Total 1809.30 900 Output Total 490 750 Balance 1319.30 150 Intake: IV 1512.5 600 D5-0.45% NaCl with KCl 750 600 20Meq/l 1,000 ml @ 50 mls /hr IV .Q20H NIKA Rx#: [id number] Piperacillin-Tazobactam 3 62.5 .375 gm In Dextrose/Water 1 50ml.bag @ 12.5 mls/hr IVPB Q8HR NIKA Rx#: [id number] Intake, IV Titration 296.80 300 Amount Propofol 1,000 mg In 296.80 300 Empty Bag 1 bag @ Titrate IV .Q0M NIKA Rx#: [id number] Output: Drainage 20 Left Lower Abdomen 20 Urine 450 750 Estimated Blood Loss 20 Other: Voiding Method Indwelling Catheter Indwelling Catheter Gen.: Sedated Heart: Normal S1-S2 Lungs: Coarse sounds bilaterally Abdomen: Soft, no tenderness, hypoactive bowel sounds incision seems to be clean and tach and dry dressing Skin: No new rash Psych: Sedated Neuro: Moving extremities spontaneously Results CBC & Chem 7: 04/10/18 04:45 04/10/18 04:45 Labs: Abnormal Lab Results - Last 24 Hours (Table) 04/09/18 04/09/18 04/10/18 Range/Units 20:46 20:46 00:02 Neutrophils # 8.1 H (1.3-7.7) k/uL Lymphocytes # (1.0-4.8) k/uL ABG pCO2 (35-45) mmHg ABG pO2 (83-108) mmHg ABG HCO3 (21-25) mmol/L ABG Total CO2 (19-24) mmol/L ABG O2 Saturation (94-97) % Chloride 97 L (98-107) mmol/L Carbon Dioxide 39 H (22-30) mmol/L Glucose 120 H (74-99) mg/dL POC Glucose (mg/dL) 123 H (75-99) mg/dL Total Protein 5.7 L (6.3-8.2) g/dL Albumin 3.2 L (3.5-5.0) g/dL Urine Protein (Negative) Ur Leukocyte Esterase (Negative) Amorphous Sediment (None) /hpf Urine Mucus (None) /hpf 04/10/18 04/10/18 04/10/18 Range/Units 00:52 04:45 04:45 Neutrophils # 8.5 H (1.3-7.7) k/uL Lymphocytes # 0.6 L (1.0-4.8) k/uL ABG pCO2 64 H (35-45) mmHg ABG pO2 311 H (83-108) mmHg ABG HCO3 39 H (21-25) mmol/L ABG Total CO2 41 H (19-24) mmol/L ABG O2 Saturation 99.1 H (94-97) % Chloride 96 L (98-107) mmol/L Carbon Dioxide 35 H (22-30) mmol/L Glucose 167 H (74-99) mg/dL POC Glucose (mg/dL) (75-99) mg/dL Total Protein 6.1 L (6.3-8.2) g/dL Albumin (3.5-5.0) g/dL Urine Protein (Negative) Ur Leukocyte Esterase (Negative) Amorphous Sediment (None) /hpf Urine Mucus (None) /hpf 04/10/18 04/10/18 04/10/18 Range/Units 07:17 10:45 11:53 Neutrophils # (1.3-7.7) k/uL Lymphocytes # (1.0-4.8) k/uL ABG pCO2 63 H (35-45) mmHg ABG pO2 58 L (83-108) mmHg ABG HCO3 37 H (21-25) mmol/L ABG Total CO2 39 H (19-24) mmol/L ABG O2 Saturation 88.6 L (94-97) % Chloride (98-107) mmol/L Carbon Dioxide (22-30) mmol/L Glucose (74-99) mg/dL POC Glucose (mg/dL) 152 H (75-99) mg/dL Total Protein (6.3-8.2) g/dL Albumin (3.5-5.0) g/dL Urine Protein 1+ H (Negative) Ur Leukocyte Esterase Trace H (Negative) Amorphous Sediment Rare H (None) /hpf Urine Mucus Rare H (None) /hpf Microbiology - Last 24 Hours (Table) 04/10/18 03:31 Gram Stain - Preliminary Sputum Sputum Culture - Preliminary Assessment and Plan Assessment: 1. Acute respiratory failure on vent support. 2. Morbid obesity with obstructive sleep apnea. 3. Foreign body in the rectum status post exploratory laparotomy. 4. Congestive heart failure. 5. COPD. 6. Paroxysmal atrial fibrillation. 7. Diabetes mellitus insulin-dependent. 8. Hypertension. 9. Hyperlipidemia. 10. GERD. 11. Generalized osteoarthritis. 12. Peripheral neuropathy. 13. Gout. 14. Remote history of smoking. We will continue full vent support wean off when appropriate as patient still having difficulty weaning and requiring higher repeat and higher oxygen level. We will continue with sedation and wean off as tolerated. We will continue with home medication and resume anticoagulation per general surgery recommendation. With continue with insulin sliding scale and consider nutritional evaluation and starting tube feeding per critical care recommendation
[2018-04-10 17:32] LABS: Glucose,Whole Blood 146 mg/dL (75-99)
[2018-04-10] MEDS: BUDESONIDE 1 MG/2 ML NEBU INHALATION SCH (19:39)
[2018-04-10] MEDS: FORMOTEROL FUMARATE 20 MCG/2 ML NEBU INHALATION SCH (19:39)
[2018-04-10] MEDS: HYDROcodone/APAP 7.5-325MG 1 EACH TAB PO SCH (20:31)
[2018-04-10] MEDS: ATORVASTATIN 10 MG TAB PO SCH (20:31)
[2018-04-10] MEDS: ALLOPURINOL 100 MG TAB PO SCH (20:31)
[2018-04-10] MEDS: METOPROLOL TARTRATE 50 MG TAB PO SCH (20:31)
[2018-04-10] MEDS: GABAPENTIN 300 MG CAP PO SCH (20:31)
[2018-04-10] MEDS: clonazePAM 1 MG TAB PO SCH (20:31)
[2018-04-10] MEDS ORDERED: HYDROmorphone 0.5 MG/0.5 ML SYRINGE IVP SCH (22:15)
[2018-04-10 23:25] LABS: Glucose,Whole Blood 142 mg/dL (75-99)
[2018-04-11] MEDS: PROPOFOL 1,000 MG in EMPTY BAG 1 BAG IV SCH ×5 (00:53→08:06)
[2018-04-11] MEDS: IPRATROPIUM-ALBUTEROL 3 ML NEB INHALATION SCH ×5 (03:27→19:05)
[2018-04-11] MEDS: HYDROmorphone 0.5 MG/0.5 ML SYRINGE IVP PRN ×3 (03:51→15:27)
[2018-04-11 04:40] LABS: Basophils % (A) 0 %; Eosinophils % (A) 0 %; HCT 38.4 % (39.0-53.0); HGB 12.7 gm/dL (13.0-17.5); Lymphocytes % (A) 10 %; MCH 30.1 pg (25.0-35.0); MCV 91.2 fL (80.0-100.0); Monocytes # (A) 0.7 k/uL (0-1.0); Monocytes % (A) 7 %; Neutrophils # (A) 8.1 k/uL (1.3-7.7); Neutrophils % (A) 81 %; Platelet Count 220 k/uL (150-450); RBC 4.21 m/uL (4.30-5.90); RDW 15.6 % (11.5-15.5); WBC 10.1 k/uL (3.8-10.6)
[2018-04-11 04:51] LABS: Calcium 8.6 mg/dL (8.4-10.2); Phosphorus 4.8 mg/dL (2.5-4.5); Potassium 4.3 mmol/L (3.5-5.1)
[2018-04-11 05:31] LABS: Glucose,Whole Blood 130 mg/dL (75-99)
[2018-04-11] MEDS: INSULIN ASPART 100 UNIT/ML 1 ML 10 ML VIAL SQ SCH ×3 (05:42→18:13)
[2018-04-11 07:14] LABS: ABG Base Excess 11.5 mmol/L; ABG HCO3 37 mmol/L (21-25); ABG Oxygen Saturation 97.5 % (94-97); ABG PCO2 61 mmHg (35-45); ABG PH 7.39 (7.35-7.45); ABG PO2 107 mmHg (83-108); ABG TCO2 38 mmol/L (19-24)
[2018-04-11] MEDS: FORMOTEROL FUMARATE 20 MCG/2 ML NEBU INHALATION SCH ×2 (07:27→19:05)
[2018-04-11] MEDS: BUDESONIDE 1 MG/2 ML NEBU INHALATION SCH ×2 (07:27→19:05)
[2018-04-11] MEDS: FUROSEMIDE 10 MG/ML 4 ML VIAL IV SCH ×2 (08:05→20:39)
[2018-04-11] MEDS: PANTOPRAZOLE 40 MG/10 ML VIAL IV SCH (08:05)
[2018-04-11] MEDS: HEPARIN SODIUM,PORCINE 5,000 UNIT/ML 1 ML VIAL SQ SCH ×2 (08:05→16:41)
[2018-04-11] MEDS: CHLORHEXIDINE GLUCONATE 15 ML CUP MUCOUS MEM SCH (08:05)
--- NOTE | 2018-04-11 08:21 | XR ---
EXAMINATION TYPE: XR chest 1V portable DATE OF EXAM: 04/11/2018 COMPARISON: 04/10/2018 HISTORY: Shortness of breath TECHNIQUE: Single frontal view of the chest is obtained. FINDINGS: NG tube again seen in the left upper quadrant with the tip overlying the gastric fundus. B ilateral consolidation and pleural effusion noted. Hypertrophic and degenerative change of the spine. Cardiomegaly and noted. Artifact limits the exam. IMPRESSION: Bilateral consolidation and pleural effusion. Correlate clinically.
[2018-04-11] MEDS: PIPERACILLIN-TAZOBACTAM 3.375 GM in DEXTROSE/WATER 1 50ML.BAG IVPB SCH ×2 (08:35→16:41)
[2018-04-11 08:57] LABS: ABG Base Excess 11.4 mmol/L; ABG HCO3 35 mmol/L (21-25); ABG Oxygen Saturation 98.2 % (94-97); ABG PCO2 50 mmHg (35-45); ABG PH 7.45 (7.35-7.45); ABG PO2 113 mmHg (83-108); ABG TCO2 37 mmol/L (19-24)
--- NOTE | 2018-04-11 10:02 | P.PN ---
Subjective Progress Note Date: 04/11/18 Principal diagnosis: Respiratory failure Progress note dated 04/11/2018 57-year-old male with a history of multiple medical problems including paroxysmal atrial fibrillation, COPD, heart failure, morbid obesity, diabetes, hypertension, DJD, sleep apnea syndrome, neuropathy, gout, apparently presented to the emergency room last night with complaints of rectal foreign body. Apparently x-rays of the abdomen showed a transverse location of a shaving cream can in the lower pelvis. There is no evidence of rectal bleeding. The patient went to the operating room and apparently attempts at removing the foreign body with flexible sigmoidoscopy was unsuccessful. Hence, the patient had an exploratory laparotomy and colotomy with removal of the sigmoid colon foreign body. The patient currently is on the volume assist control mode. Tidal volume 600 FiO2 is 50% PEEP is 8. Arterial blood gases show a PaO2 of 107 PaCO2 of 61 and pH 7.38. The patient is on a dextrose and half-normal saline IV with 20 of KCl at 50 mL an hour and on propofol at 65 mics per kilogram per minute. The patient has a endotracheal tube and OG tube in place. The patient is going to be placed on a pressure support of a CPAP of 5 once the fall is been discontinued. We'll see if we can wean and extubate the patient. Chest x-ray shows bilateral consolidation and pleural effusion. Laboratory data revealed a white count of 10.1 hemoglobin 12.7 hematocrit 38.4 and platelet count of 220,000. Sodium potassium are normal. Chloride 96 CO2 36 BUN/creatinine creatinine were 19 and 1.29 respectively. Microbiology is S4 negative. Objective - Vital Signs Vital signs: Vital Signs Temp 98.2 F 04/11/18 08:00 Pulse 104 H 04/11/18 09:00 Resp 28 H 04/11/18 09:00 BP 174/81 04/10/18 21:00 Pulse Ox 98 04/11/18 09:00 Intake & Output 04/10/18 04/11/18 04/11/18 18:59 06:59 18:59 Intake Total 1200 1300.857 250 Output Total 970 1005 315 Balance 230 295.857 -65 Weight 192.7 kg Intake: IV 800 550 150 D5-0.45% NaCl with KCl 800 550 150 20Meq/l 1,000 ml @ 50 mls /hr IV .Q20H [facility] Rx#: [id number] Intake, IV Titration 400 670.857 100 Amount Propofol 1,000 mg In 400 670.857 100 Empty Bag 1 bag @ Titrate IV .Q0M [facility] Rx#: [id number] Oral 80 Output: Drainage 20 Left Lower Abdomen 20 Urine 970 985 315 Other: Voiding Method Indwelling Catheter Indwelling Catheter Indwelling Catheter ABP, PAP, CO, CI - Last Documented Arterial Blood Pressure 150/80 - Exam No acute distress, patient is sedated with a endotracheal tube in place. HEENT examination is grossly unremarkable. Mucous membranes are moist. Neck supple. Full range of motion. No adenopathy thyromegaly or neck vein distention. Cardiovascular examination reveals regular rhythm rate. S1-S2 normal. No S3 or S4. No discernible murmur noted. Lungs reveal clear breath sounds. Her sounds are equal bilaterally. No adventitious lung sounds including wheezes rhonchi or crackles. Abdomen is obese but soft without bowel sounds. Extremities are intact. There is significant lower extremity edema with chronic venous stasis and hyperpigmentation noted. Skin is without rash or lesion, save for the above. Neurologic examination is difficult to assess. - Labs CBC & Chem 7: 04/11/18 04:30 04/11/18 04:30 Labs: Abnormal Lab Results - Last 24 Hours (Table) 04/10/18 04/10/18 04/10/18 Range/Units 10:45 11:53 17:30 RBC (4.30-5.90) m/uL Hgb (13.0-17.5) gm/dL Hct (39.0-53.0) % RDW (11.5-15.5) % Neutrophils # (1.3-7.7) k/uL ABG pCO2 (35-45) mmHg ABG pO2 (83-108) mmHg ABG HCO3 (21-25) mmol/L ABG Total CO2 (19-24) mmol/L ABG O2 Saturation (94-97) % Chloride (98-107) mmol/L Carbon Dioxide (22-30) mmol/L Creatinine (0.66-1.25) mg/dL Glucose (74-99) mg/dL POC Glucose (mg/dL) 152 H 146 H (75-99) mg/dL Phosphorus (2.5-4.5) mg/dL Urine Protein 1+ H (Negative) Ur Leukocyte Esterase Trace H (Negative) Amorphous Sediment Rare H (None) /hpf Urine Mucus Rare H (None) /hpf 04/10/18 04/11/18 04/11/18 Range/Units 23:23 04:30 04:30 RBC 4.21 L (4.30-5.90) m/uL Hgb 12.7 L (13.0-17.5) gm/dL Hct 38.4 L (39.0-53.0) % RDW 15.6 H (11.5-15.5) % Neutrophils # 8.1 H (1.3-7.7) k/uL ABG pCO2 (35-45) mmHg ABG pO2 (83-108) mmHg ABG HCO3 (21-25) mmol/L ABG Total CO2 (19-24) mmol/L ABG O2 Saturation (94-97) % Chloride 96 L (98-107) mmol/L Carbon Dioxide 36 H (22-30) mmol/L Creatinine 1.29 H (0.66-1.25) mg/dL Glucose 125 H (74-99) mg/dL POC Glucose (mg/dL) 142 H (75-99) mg/dL Phosphorus 4.8 H (2.5-4.5) mg/dL Urine Protein (Negative) Ur Leukocyte Esterase (Negative) Amorphous Sediment (None) /hpf Urine Mucus (None) /hpf 04/11/18 04/11/18 04/11/18 Range/Units 05:29 07:10 08:51 RBC (4.30-5.90) m/uL Hgb (13.0-17.5) gm/dL Hct (39.0-53.0) % RDW (11.5-15.5) % Neutrophils # (1.3-7.7) k/uL ABG pCO2 61 H 50 H (35-45) mmHg ABG pO2 113 H (83-108) mmHg ABG HCO3 37 H 35 H (21-25) mmol/L ABG Total CO2 38 H 37 H (19-24) mmol/L ABG O2 Saturation 97.5 H 98.2 H (94-97) % Chloride (98-107) mmol/L Carbon Dioxide (22-30) mmol/L Creatinine (0.66-1.25) mg/dL Glucose (74-99) mg/dL POC Glucose (mg/dL) 130 H (75-99) mg/dL Phosphorus (2.5-4.5) mg/dL Urine Protein (Negative) Ur Leukocyte Esterase (Negative) Amorphous Sediment (None) /hpf Urine Mucus (None) /hpf Microbiology - Last 24 Hours (Table) 04/10/18 10:45 Urine Culture - Preliminary Urine,Catheterized 04/10/18 03:31 Gram Stain - Preliminary Sputum Sputum Culture - Preliminary Assessment and Plan Assessment: Assessment Postop day #2, status post exploratory laparotomy and colotomy for sigmoid colon foreign body. Postoperative respiratory failure secondary to chronic hypoxemia and hypercapnia. History of diastolic congestive heart failure History of COPD History of mild heart failure. Status post flexible sigmoidoscopy Paroxysmal atrial fibrillation Congestive heart failure Type 2 diabetes Hyperlipidemia Benign essential hypertension DJD Sleep apnea syndrome Diabetic neuropathy Gout Morbid obesity. Plan: Plan dated 04/11/2018 We will attempted to the patient's sedation and see if we can't move towards weaning and extubation. This will include a cuff leak test as well as weaning parameters. He parameters will include a tidal volume vital capacity minute volume negative inspiratory force respiratory rate and rapid shallow breathing index. Post extubation, the patient will have nothing to eat or drink for at least 6 hours. We will make sure the patient continues on updrafts 4 times a day and when necessary. Additional recommendations and suggestions are forthcoming. The patient we placed on PSV 8 CPAP of 5. We'll follow closely. Critical care time 40 minutes Time with Patient: Greater than 30
[2018-04-11 11:53] LABS: Glucose,Whole Blood 115 mg/dL (75-99)
--- NOTE | 2018-04-11 12:30 | P.PN ---
Subjective Progress Note Date: 04/11/18 This is 57 years old morbidly obese male who presented to the emergency department with rectal pain patient admitted insertion of shaving cream can in the rectum and x-ray confirmed the diagnosis patient was taken to the operating room with exploratory laparotomy was done by Dr. Taylor patient was kept on the ventilator due to difficulty weaning off the ventilator patient was admitted to the ICU and currently patient is sedated on full vent support with oxygen 50% and PEEP of 8 and respiratory rate of 16. Patient was following commands to the nursing staff when he was off sedation earlier this morning. Patient has compensated past medical history including paroxysmal atrial fibrillation on a blood thinner at home, COPD, congestive heart failure, morbid obesity, diabetes type 2 insulin-dependent, hypertension and hyperlipidemia. Patient had a history also of obstructive sleep apnea 04/11: Patient is to be weaned off ventilator. He is currently nothing by mouth status. He is voiding adequately with Mccloud catheter in place. 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 Vital signs have been stable. Patient has been afebrile. Case management to meet with patient this afternoon for discharge planning. Objective - Vital Signs Vital signs: Vital Signs Temp 98.5 F 04/11/18 04:00 Pulse 84 04/11/18 07:40 Resp 16 04/11/18 07:00 BP 174/81 04/10/18 21:00 Pulse Ox 98 04/11/18 07:00 Intake & Output 04/10/18 04/11/18 04/11/18 18:59 06:59 18:59 Intake Total 1200 1300.857 100 Output Total 970 1005 85 Balance 230 295.857 15 Weight 192.7 kg Intake: IV 800 550 100 D5-0.45% NaCl with KCl 800 550 100 20Meq/l 1,000 ml @ 50 mls /hr IV .Q20H [facility] Rx#: [id number] Intake, IV Titration 400 670.857 Amount Propofol 1,000 mg In 400 670.857 Empty Bag 1 bag @ Titrate IV .Q0M [facility] Rx#: [id number] Oral 80 Output: Drainage 20 Left Lower Abdomen 20 Urine 970 985 85 Other: Voiding Method Indwelling Catheter Indwelling Catheter ABP, PAP, CO, CI - Last Documented Arterial Blood Pressure 109/56 - Exam Gen.: Intubated and on mechanical ventilation. Heart: Normal S1-S2 Lungs: Coarse sounds bilaterally Abdomen: Soft, no tenderness, hypoactive bowel sounds incision seems to be clean intact and dry dressing Skin: No new rash Psych: Currently off sedation Neuro: Moving extremities spontaneously, awake and alert, attempting to write note a piece paper - Labs CBC & Chem 7: 04/11/18 04:30 04/11/18 04:30 Labs: Abnormal Lab Results - Last 24 Hours (Table) 04/10/18 04/10/18 04/10/18 Range/Units 10:45 11:53 17:30 RBC (4.30-5.90) m/uL Hgb (13.0-17.5) gm/dL Hct (39.0-53.0) % RDW (11.5-15.5) % Neutrophils # (1.3-7.7) k/uL ABG pCO2 (35-45) mmHg ABG HCO3 (21-25) mmol/L ABG Total CO2 (19-24) mmol/L ABG O2 Saturation (94-97) % Chloride (98-107) mmol/L Carbon Dioxide (22-30) mmol/L Creatinine (0.66-1.25) mg/dL Glucose (74-99) mg/dL POC Glucose (mg/dL) 152 H 146 H (75-99) mg/dL Phosphorus (2.5-4.5) mg/dL Urine Protein 1+ H (Negative) Ur Leukocyte Esterase Trace H (Negative) Amorphous Sediment Rare H (None) /hpf Urine Mucus Rare H (None) /hpf 04/10/18 04/11/18 04/11/18 Range/Units 23:23 04:30 04:30 RBC 4.21 L (4.30-5.90) m/uL Hgb 12.7 L (13.0-17.5) gm/dL Hct 38.4 L (39.0-53.0) % RDW 15.6 H (11.5-15.5) % Neutrophils # 8.1 H (1.3-7.7) k/uL ABG pCO2 (35-45) mmHg ABG HCO3 (21-25) mmol/L ABG Total CO2 (19-24) mmol/L ABG O2 Saturation (94-97) % Chloride 96 L (98-107) mmol/L Carbon Dioxide 36 H (22-30) mmol/L Creatinine 1.29 H (0.66-1.25) mg/dL Glucose 125 H (74-99) mg/dL POC Glucose (mg/dL) 142 H (75-99) mg/dL Phosphorus 4.8 H (2.5-4.5) mg/dL Urine Protein (Negative) Ur Leukocyte Esterase (Negative) Amorphous Sediment (None) /hpf Urine Mucus (None) /hpf 04/11/18 04/11/18 Range/Units 05:29 07:10 RBC (4.30-5.90) m/uL Hgb (13.0-17.5) gm/dL Hct (39.0-53.0) % RDW (11.5-15.5) % Neutrophils # (1.3-7.7) k/uL ABG pCO2 61 H (35-45) mmHg ABG HCO3 37 H (21-25) mmol/L ABG Total CO2 38 H (19-24) mmol/L ABG O2 Saturation 97.5 H (94-97) % Chloride (98-107) mmol/L Carbon Dioxide (22-30) mmol/L Creatinine (0.66-1.25) mg/dL Glucose (74-99) mg/dL POC Glucose (mg/dL) 130 H (75-99) mg/dL Phosphorus (2.5-4.5) mg/dL Urine Protein (Negative) Ur Leukocyte Esterase (Negative) Amorphous Sediment (None) /hpf Urine Mucus (None) /hpf Microbiology - Last 24 Hours (Table) 04/10/18 10:45 Urine Culture - Preliminary Urine,Catheterized 04/10/18 03:31 Gram Stain - Preliminary Sputum Sputum Culture - Preliminary Assessment and Plan Plan: 1. Acute on chronic hypoxic and hypercapnic respiratory failure on vent support. 2. Morbid obesity with obstructive sleep apnea. 3. Foreign body in the rectum status post exploratory laparotomy. 4. Chronic diastolic heart failure. 5. COPD, stable not in exacerbation. 6. Paroxysmal atrial fibrillation. 7. Diabetes mellitus insulin-dependent. 8. Hypertension. 9. Hyperlipidemia. 10. GERD. 11. Generalized osteoarthritis. 12. Peripheral neuropathy. 13. Gout. 14. Remote history of smoking. Patient is currently off sedation and to be extubated today. He is continued on nebulizer treatments [id number]. Continue Zosyn. Patient remains nothing by mouth. White count remains normal. Patient has been afebrile. BUN 19 and creatinine 1.29. Blood blood glucose running between 1:15 and 1:30. Mccloud catheter remains in place. Discharge plan: To be determined Impression and plan of care have been directed as dictated by the signing physician. Kirsten Michael nurse practitioner acting as scribe for signing physician.
[2018-04-11] MEDS: METOPROLOL TARTRATE 50 MG TAB PO SCH ×2 (13:25→20:39)
[2018-04-11] MEDS: clonazePAM 1 MG TAB PO SCH ×2 (13:25→20:39)
[2018-04-11] MEDS: ALLOPURINOL 100 MG TAB PO SCH ×2 (13:25→20:39)
[2018-04-11] MEDS: HYDROcodone/APAP 7.5-325MG 1 EACH TAB PO SCH ×2 (13:25→20:39)
[2018-04-11] MEDS: POTASSIUM CHLORIDE ER 20 MEQ TAB.ER PO SCH (13:26)
[2018-04-11 14:09] LABS: Hemoglobin A1C 5.8 % (4.0-6.0)
[2018-04-11] MEDS: DIGOXIN 125 MCG TAB PO SCH (15:27)
[2018-04-11] MEDS: D5-0.45% NACL WITH KCL 20MEQ/L 1,000 ML IV SCH (16:41)
[2018-04-11 18:03] LABS: Glucose,Whole Blood 115 mg/dL (75-99)
[2018-04-11] MEDS: ATORVASTATIN 10 MG TAB PO SCH (20:39)
[2018-04-11] MEDS: GABAPENTIN 300 MG CAP PO SCH (20:39)
--- NOTE | 2018-04-11 21:24 | P.PN ---
Subjective Progress Note Date: 04/11/18 Principal diagnosis: Sigmoid colon foreign-body Patient doing well today. He was extubated. He is tolerating clear liquids. Mildly tachycardic. White blood cell count 10.1. Mild abdominal discomfort. Objective - Vital Signs Vital signs: Vital Signs Temp 98.1 F 04/11/18 20:00 Pulse 117 H 04/11/18 20:00 Resp 32 H 04/11/18 20:00 BP 188/83 04/11/18 20:00 Pulse Ox 95 04/11/18 20:00 Intake & Output 04/11/18 04/11/18 04/12/18 06:59 18:59 06:59 Intake Total 1300.857 750 50 Output Total 1005 1675 60 Balance 295.857 -925 -10 Weight 192.7 kg Intake: IV 550 600 50 D5-0.45% NaCl with KCl 550 600 50 20Meq/l 1,000 ml @ 50 mls /hr IV .Q20H [facility] Rx#: [id number] Intake, IV Titration 670.857 150 Amount Piperacillin-Tazobactam 3 50 .375 gm In Dextrose/Water 1 50ml.bag @ 12.5 mls/hr IVPB Q8HR [facility] Rx#: [id number] Propofol 1,000 mg In 670.857 100 Empty Bag 1 bag @ Titrate IV .Q0M [facility] Rx#: [id number] Oral 80 Output: Drainage 20 Left Lower Abdomen 20 Urine 985 1675 60 Other: Voiding Method Indwelling Catheter Indwelling Catheter ABP, PAP, CO, CI - Last Documented Arterial Blood Pressure 124/88 - Exam Abdomen: Soft, obese, nondistended, mild tenderness, incision clean and dry - Labs CBC & Chem 7: 04/11/18 04:30 04/11/18 04:30 Labs: Abnormal Lab Results - Last 24 Hours (Table) 04/10/18 04/11/18 04/11/18 Range/Units 23:23 04:30 04:30 RBC 4.21 L (4.30-5.90) m/uL Hgb 12.7 L (13.0-17.5) gm/dL Hct 38.4 L (39.0-53.0) % RDW 15.6 H (11.5-15.5) % Neutrophils # 8.1 H (1.3-7.7) k/uL ABG pCO2 (35-45) mmHg ABG pO2 (83-108) mmHg ABG HCO3 (21-25) mmol/L ABG Total CO2 (19-24) mmol/L ABG O2 Saturation (94-97) % Chloride 96 L (98-107) mmol/L Carbon Dioxide 36 H (22-30) mmol/L Creatinine 1.29 H (0.66-1.25) mg/dL Glucose 125 H (74-99) mg/dL POC Glucose (mg/dL) 142 H (75-99) mg/dL Phosphorus 4.8 H (2.5-4.5) mg/dL 04/11/18 04/11/18 04/11/18 Range/Units 05:29 07:10 08:51 RBC (4.30-5.90) m/uL Hgb (13.0-17.5) gm/dL Hct (39.0-53.0) % RDW (11.5-15.5) % Neutrophils # (1.3-7.7) k/uL ABG pCO2 61 H 50 H (35-45) mmHg ABG pO2 113 H (83-108) mmHg ABG HCO3 37 H 35 H (21-25) mmol/L ABG Total CO2 38 H 37 H (19-24) mmol/L ABG O2 Saturation 97.5 H 98.2 H (94-97) % Chloride (98-107) mmol/L Carbon Dioxide (22-30) mmol/L Creatinine (0.66-1.25) mg/dL Glucose (74-99) mg/dL POC Glucose (mg/dL) 130 H (75-99) mg/dL Phosphorus (2.5-4.5) mg/dL 04/11/18 04/11/18 Range/Units 11:49 18:02 RBC (4.30-5.90) m/uL Hgb (13.0-17.5) gm/dL Hct (39.0-53.0) % RDW (11.5-15.5) % Neutrophils # (1.3-7.7) k/uL ABG pCO2 (35-45) mmHg ABG pO2 (83-108) mmHg ABG HCO3 (21-25) mmol/L ABG Total CO2 (19-24) mmol/L ABG O2 Saturation (94-97) % Chloride (98-107) mmol/L Carbon Dioxide (22-30) mmol/L Creatinine (0.66-1.25) mg/dL Glucose (74-99) mg/dL POC Glucose (mg/dL) 115 H 115 H (75-99) mg/dL Phosphorus (2.5-4.5) mg/dL Microbiology - Last 24 Hours (Table) 04/10/18 10:45 Urine Culture - Final Urine,Catheterized Assessment and Plan (1) Foreign body in rectosigmoid (junction) Narrative/Plan: Will advance diet. Add stool softeners. Follow vital signs. Continue ICU observation. Continue antibiotics. Current Visit: Yes Status: Acute Code(s): T18.5XXA - FOREIGN BODY IN ANUS AND RECTUM, INITIAL ENCOUNTER SNOMED Code(s): 12991332
[2018-04-12] MEDS: HEPARIN SODIUM,PORCINE 5,000 UNIT/ML 1 ML VIAL SQ SCH ×3 (00:08→18:08)
[2018-04-12] MEDS: PIPERACILLIN-TAZOBACTAM 3.375 GM in DEXTROSE/WATER 1 50ML.BAG IVPB SCH ×3 (00:08→18:25)
[2018-04-12 00:09] LABS: Glucose,Whole Blood 123 mg/dL (75-99)
[2018-04-12] MEDS: HYDROmorphone 0.5 MG/0.5 ML SYRINGE IVP PRN ×5 (00:09→18:08)
[2018-04-12] MEDS: MAGNESIUM HYDROXIDE 2,400 MG/10 ML CUP PO SCH ×2 (00:11→10:19)
[2018-04-12] MEDS: INSULIN ASPART 100 UNIT/ML 1 ML 10 ML VIAL SQ SCH ×5 (00:11→21:37)
[2018-04-12 04:18] LABS: Basophils % (A) 0 %; Eosinophils # (A) 0.1 k/uL (0-0.7); Eosinophils % (A) 1 %; HCT 37.5 % (39.0-53.0); Lymphocytes % (A) 13 %; MCH 29.5 pg (25.0-35.0); MCHC 32.1 g/dL (31.0-37.0); Mean Platelet Volume 7.5; Monocytes # (A) 0.6 k/uL (0-1.0); Monocytes % (A) 7 %; Neutrophils # (A) 6.2 k/uL (1.3-7.7); Neutrophils % (A) 77 %; Platelet Count 176 k/uL (150-450); RBC 4.08 m/uL (4.30-5.90); RDW 15.3 % (11.5-15.5)
[2018-04-12 04:33] LABS: Calcium 8.8 mg/dL (8.4-10.2); Magnesium 1.8 mg/dL (1.6-2.3); Phosphorus 4.2 mg/dL (2.5-4.5); Potassium 3.9 mmol/L (3.5-5.1)
[2018-04-12 06:04] LABS: Glucose,Whole Blood 107 mg/dL (75-99)
[2018-04-12] MEDS: MAGNESIUM SULFATE-D5W PMX 1 GM in DEXTROSE/WATER 1 100ML.BAG IVPB SCH ×2 (06:20→08:50)
[2018-04-12] MEDS: FUROSEMIDE 10 MG/ML 4 ML VIAL IV SCH ×2 (08:30→21:31)
[2018-04-12] MEDS: METOPROLOL TARTRATE 50 MG TAB PO SCH ×3 (08:30→21:31)
[2018-04-12] MEDS: ALLOPURINOL 100 MG TAB PO SCH ×3 (08:30→21:31)
[2018-04-12] MEDS: DIGOXIN 125 MCG TAB PO SCH ×3 (08:31→10:57)
[2018-04-12] MEDS: PANTOPRAZOLE 40 MG/10 ML VIAL IV SCH (08:31)
[2018-04-12] MEDS: DOCUSATE 100 MG CAP PO SCH ×2 (08:31→10:59)
[2018-04-12] MEDS: POTASSIUM CHLORIDE ER 20 MEQ TAB.ER PO SCH (08:32)
[2018-04-12] MEDS: BUDESONIDE 1 MG/2 ML NEBU INHALATION SCH (09:05)
[2018-04-12] MEDS: FORMOTEROL FUMARATE 20 MCG/2 ML NEBU INHALATION SCH (09:05)
[2018-04-12] MEDS: IPRATROPIUM-ALBUTEROL 3 ML NEB INHALATION SCH ×4 (09:05→19:33)
--- NOTE | 2018-04-12 09:07 | P.PN ---
Subjective Progress Note Date: 04/12/18 Principal diagnosis: Respiratory failure Progress note dated 04/11/2018 57-year-old male with a history of multiple medical problems including paroxysmal atrial fibrillation, COPD, heart failure, morbid obesity, diabetes, hypertension, DJD, sleep apnea syndrome, neuropathy, gout, apparently presented to the emergency room last night with complaints of rectal foreign body. Apparently x-rays of the abdomen showed a transverse location of a shaving cream can in the lower pelvis. There is no evidence of rectal bleeding. The patient went to the operating room and apparently attempts at removing the foreign body with flexible sigmoidoscopy was unsuccessful. Hence, the patient had an exploratory laparotomy and colotomy with removal of the sigmoid colon foreign body. The patient currently is on the volume assist control mode. Tidal volume 600 FiO2 is 50% PEEP is 8. Arterial blood gases show a PaO2 of 107 PaCO2 of 61 and pH 7.38. The patient is on a dextrose and half-normal saline IV with 20 of KCl at 50 mL an hour and on propofol at 65 mics per kilogram per minute. The patient has a endotracheal tube and OG tube in place. The patient is going to be placed on a pressure support of a CPAP of 5 once the fall is been discontinued. We'll see if we can wean and extubate the patient. Chest x-ray shows bilateral consolidation and pleural effusion. Laboratory data revealed a white count of 10.1 hemoglobin 12.7 hematocrit 38.4 and platelet count of 220,000. Sodium potassium are normal. Chloride 96 CO2 36 BUN/creatinine creatinine were 19 and 1.29 respectively. Microbiology is S4 negative. Progress note dated 04/12/2018 57-year-old male with a history of multiple medical problems including paroxysmal atrial fibrillation, COPD, heart failure, morbid obesity, diabetes, hypertension, DJD, sleep apnea syndrome, neuropathy, and gout, who presented to the emergency room 2 nights ago with complaints of rectal foreign body. Chest x -ray and abdominal x-rays apparently showed a transverse location of a shaving cream can in the lower pelvis. There is no evidence of rectal bleeding and the patient went to the operating room. He is currently postop day #3 status post exploratory laparotomy and colotomy first sigmoid colon foreign body. The patient is doing relatively well he was extubated yesterday. The patient's on O2 at 5 L by nasal cannula. He is receiving a dextrose and half-normal saline IV at 20 mEq of potassium at 50 mL an hour. From my perspective, the patient may be stable enough to go to the general medical floor. The patient otherwise is doing reasonably well. The patient will get an incentive spirometry in the room for incentive spirometry. In addition, labs x-rays and medications will all be reviewed. White count is 8.0 hemoglobin is 12 hematocrit 37.5 and platelet count is normal. Sodium is 143 potassium 3.9 chloride is 99 and CO2 is 36. Objective - Vital Signs Vital signs: Vital Signs Temp 98.0 F 04/12/18 00:00 Pulse 84 04/12/18 07:00 Resp 14 04/12/18 07:00 BP 162/86 04/12/18 07:00 Pulse Ox 91 L 04/12/18 07:00 Intake & Output 04/11/18 04/12/18 04/12/18 18:59 06:59 18:59 Intake Total 750 700.0 50 Output Total 1674 Balance -925 -1310.0 -25 Intake: IV 600 700.0 50 D5-0.45% NaCl with KCl 600 550 50 20Meq/l 1,000 ml @ 50 mls /hr IV .Q20H [facility] Rx#: [id number] Magnesium Sulfate-D5w Pmx 100 1 gm In Dextrose/Water 1 100ml.bag @ 100 mls/hr IVPB Q1H [facility] Rx#: [id number] Piperacillin-Tazobactam 3 50.0 .375 gm In Dextrose/Water 1 50ml.bag @ 12.5 mls/hr IVPB Q8HR [facility] Rx#: [id number] Intake, IV Titration 150 Amount Piperacillin-Tazobactam 3 50 .375 gm In Dextrose/Water 1 50ml.bag @ 12.5 mls/hr IVPB Q8HR [facility] Rx#: [id number] Propofol 1,000 mg In 100 Empty Bag 1 bag @ Titrate IV .Q0M [facility] Rx#: [id number] Output: Urine 1674 Other: Voiding Method Indwelling Catheter Indwelling Catheter ABP, PAP, CO, CI - Last Documented Arterial Blood Pressure 124/88 - Exam No acute distress, oriented 3, nasal O2 in place. HEENT examination is grossly unremarkable. Mucous membranes are moist. Neck supple. Full range of motion. No adenopathy thyromegaly or neck vein distention. Cardiovascular examination reveals regular rhythm rate. S1-S2 normal. No S3 or S4. No discernible murmur noted. Lungs reveal clear breath sounds. Her sounds are equal bilaterally. No adventitious lung sounds including wheezes rhonchi or crackles. Abdomen is obese but soft without bowel sounds. Extremities are intact. There is significant lower extremity edema with chronic venous stasis and hyperpigmentation noted. Skin is without rash or lesion, save for the above. Neurologic examination is nonfocal. - Labs CBC & Chem 7: 04/12/18 04:06 04/12/18 04:06 Labs: Abnormal Lab Results - Last 24 Hours (Table) 04/11/18 04/11/18 04/11/18 Range/Units 08:51 11:49 18:02 RBC (4.30-5.90) m/uL Hgb (13.0-17.5) gm/dL Hct (39.0-53.0) % ABG pCO2 50 H (35-45) mmHg ABG pO2 113 H (83-108) mmHg ABG HCO3 35 H (21-25) mmol/L ABG Total CO2 37 H (19-24) mmol/L ABG O2 Saturation 98.2 H (94-97) % Carbon Dioxide (22-30) mmol/L Glucose (74-99) mg/dL POC Glucose (mg/dL) 115 H 115 H (75-99) mg/dL 04/12/18 04/12/18 04/12/18 Range/Units 00:06 04:06 04:06 RBC 4.08 L (4.30-5.90) m/uL Hgb 12.0 L (13.0-17.5) gm/dL Hct 37.5 L (39.0-53.0) % ABG pCO2 (35-45) mmHg ABG pO2 (83-108) mmHg ABG HCO3 (21-25) mmol/L ABG Total CO2 (19-24) mmol/L ABG O2 Saturation (94-97) % Carbon Dioxide 36 H (22-30) mmol/L Glucose 117 H (74-99) mg/dL POC Glucose (mg/dL) 123 H (75-99) mg/dL 04/12/18 Range/Units 06:02 RBC (4.30-5.90) m/uL Hgb (13.0-17.5) gm/dL Hct (39.0-53.0) % ABG pCO2 (35-45) mmHg ABG pO2 (83-108) mmHg ABG HCO3 (21-25) mmol/L ABG Total CO2 (19-24) mmol/L ABG O2 Saturation (94-97) % Carbon Dioxide (22-30) mmol/L Glucose (74-99) mg/dL POC Glucose (mg/dL) 107 H (75-99) mg/dL Microbiology - Last 24 Hours (Table) 04/10/18 10:45 Urine Culture - Final Urine,Catheterized Assessment and Plan Assessment: Assessment Postop day #3, status post exploratory laparotomy and colotomy for sigmoid colon foreign body. Postoperative respiratory failure secondary to chronic hypoxemia and hypercapnia. History of diastolic congestive heart failure History of COPD History of mild heart failure. Status post flexible sigmoidoscopy Paroxysmal atrial fibrillation Congestive heart failure Type 2 diabetes Hyperlipidemia Benign essential hypertension DJD Sleep apnea syndrome Diabetic neuropathy Gout Morbid obesity. Plan: Plan dated 04/11/2018 We will attempted to the patient's sedation and see if we can't move towards weaning and extubation. This will include a cuff leak test as well as weaning parameters. He parameters will include a tidal volume vital capacity minute volume negative inspiratory force respiratory rate and rapid shallow breathing index. Post extubation, the patient will have nothing to eat or drink for at least 6 hours. We will make sure the patient continues on updrafts 4 times a day and when necessary. Additional recommendations and suggestions are forthcoming. The patient we placed on PSV 8 CPAP of 5. We'll follow closely. Critical care time 40 minutes Plan dated 04/12/2018 The patient will possibly may be moved out to the floor. He is currently on 5 L nasal cannula. He is receiving a dextrose IV with half-normal saline with 20 mEq potassium at 50 mL an hour. The patient seemed relatively stable. We'll review all his medication. The patient Pulmicort and formoterol be switched to Symbicort. We'll get an incentive spirometer in the room. Additional recommendations and suggestions are forthcoming. The IV medications can be switched to oral. Additional recommendations and suggestions are forthcoming. Prognosis is guarded. Critical care time is 32 minutes. Time with Patient: Greater than 30
[2018-04-12] MEDS: clonazePAM 1 MG TAB PO SCH ×2 (09:49→22:32)
[2018-04-12] MEDS: HYDROcodone/APAP 7.5-325MG 1 EACH TAB PO SCH ×2 (10:15→21:38)
[2018-04-12] MEDS: D5-0.45% NACL WITH KCL 20MEQ/L 1,000 ML IV SCH (14:28)
--- NOTE | 2018-04-12 15:21 | XR ---
EXAMINATION TYPE: XR chest 1V DATE OF EXAM: 04/12/2018 COMPARISON: Prior chest x-ray 04/11/2018 HISTORY: Hypoxia TECHNIQUE: Single frontal view of the chest is obtained. FINDINGS: There is been interval removal of the NG tube. No evident pneumothorax or pleural effusion . Patient is rotated. Heart remains enlarged. Difficult to exclude basilar atelectasis, effusion. IMPRESSION: Rotated exam. Cardiomegaly. Probable basilar atelectasis, correlate to exclude pneumonia , follow-up PA and lateral chest x-ray eighth of benefit.
[2018-04-12 17:20] LABS: Glucose,Whole Blood 105 mg/dL (75-99)
--- NOTE | 2018-04-12 17:28 | P.PN ---
Subjective Progress Note Date: 04/12/18 Principal diagnosis: Sigmoid colon foreign-body Patient doing well today. He is passing flatus. No longer tachycardic. White blood cell count 8. Appetite diminished. Objective - Vital Signs Vital signs: Vital Signs Temp 98.0 F 04/12/18 00:00 Pulse 99 04/12/18 16:06 Resp 19 04/12/18 10:00 BP 192/98 04/12/18 10:00 Pulse Ox 92 L 04/12/18 10:00 Intake & Output 04/11/18 04/12/18 04/12/18 18:59 06:59 18:59 Intake Total 750 700.0 950 Output Total 1674 2009 895 Balance -925 -1310.0 55 Weight 192.7 kg Intake: IV 600 700.0 900 D5-0.45% NaCl with KCl 600 550 150 20Meq/l 1,000 ml @ 50 mls /hr IV .Q20H [facility] Rx#: [id number] Magnesium Sulfate-D5w Pmx 100 700 1 gm In Dextrose/Water 1 100ml.bag @ 100 mls/hr IVPB Q1H [facility] Rx#: [id number] Piperacillin-Tazobactam 3 50.0 50 .375 gm In Dextrose/Water 1 50ml.bag @ 12.5 mls/hr IVPB Q8HR [facility] Rx#: [id number] Intake, IV Titration 150 50 Amount Piperacillin-Tazobactam 3 50 50 .375 gm In Dextrose/Water 1 50ml.bag @ 12.5 mls/hr IVPB Q8HR [facility] Rx#: [id number] Propofol 1,000 mg In 100 Empty Bag 1 bag @ Titrate IV .Q0M [facility] Rx#: [id number] Output: Drainage 20 Left Lower Abdomen 20 Urine [id number] Other: Voiding Method Indwelling Catheter Indwelling Catheter Indwelling Catheter ABP, PAP, CO, CI - Last Documented Arterial Blood Pressure 124/88 - Exam Abdomen: Obese, incision clean and dry, mild tenderness - Labs CBC & Chem 7: 04/12/18 04:06 04/12/18 04:06 Labs: Abnormal Lab Results - Last 24 Hours (Table) 04/11/18 04/12/18 04/12/18 Range/Units 18:02 00:06 04:06 RBC 4.08 L (4.30-5.90) m/uL Hgb 12.0 L (13.0-17.5) gm/dL Hct 37.5 L (39.0-53.0) % Carbon Dioxide (22-30) mmol/L Glucose (74-99) mg/dL POC Glucose (mg/dL) 115 H 123 H (75-99) mg/dL 04/12/18 04/12/18 04/12/18 Range/Units 04:06 06:02 17:19 RBC (4.30-5.90) m/uL Hgb (13.0-17.5) gm/dL Hct (39.0-53.0) % Carbon Dioxide 36 H (22-30) mmol/L Glucose 117 H (74-99) mg/dL POC Glucose (mg/dL) 107 H 105 H (75-99) mg/dL Microbiology - Last 24 Hours (Table) 04/10/18 03:31 Gram Stain - Final Sputum Sputum Culture - Final Assessment and Plan (1) Foreign body in rectosigmoid (junction) Narrative/Plan: Continue advancing diet. Continue stool softeners. Increase activity level. Current Visit: Yes Status: Acute Code(s): T18.5XXA - FOREIGN BODY IN ANUS AND RECTUM, INITIAL ENCOUNTER SNOMED Code(s): 21254280
[2018-04-12] MEDS: SYMBICORT 160-4.5 MCG INHALER INHALATION SCH (19:32)
[2018-04-12 20:30] LABS: Glucose,Whole Blood 158 mg/dL (75-99)
[2018-04-12] MEDS: ATORVASTATIN 10 MG TAB PO SCH (21:31)
[2018-04-12] MEDS: MELATONIN 3 MG TABLET PO SCH (21:32)
[2018-04-12] MEDS: GABAPENTIN 300 MG CAP PO SCH (21:33)
[2018-04-13] MEDS: PIPERACILLIN-TAZOBACTAM 3.375 GM in DEXTROSE/WATER 1 50ML.BAG IVPB SCH ×4 (00:35→23:58)
[2018-04-13] MEDS: HEPARIN SODIUM,PORCINE 5,000 UNIT/ML 1 ML VIAL SQ SCH ×4 (00:35→23:58)
[2018-04-13] MEDS: HYDROmorphone 0.5 MG/0.5 ML SYRINGE IVP PRN ×4 (01:25→15:41)
[2018-04-13 05:41] LABS: Glucose,Whole Blood 103 mg/dL (75-99)
[2018-04-13] MEDS: SYMBICORT 160-4.5 MCG INHALER INHALATION SCH ×2 (07:17→20:20)
[2018-04-13] MEDS: IPRATROPIUM-ALBUTEROL 3 ML NEB INHALATION SCH ×4 (07:17→20:23)
[2018-04-13] MEDS: INSULIN ASPART 100 UNIT/ML 1 ML 10 ML VIAL SQ SCH ×4 (07:38→21:59)
[2018-04-13] MEDS: HYDROcodone/APAP 7.5-325MG 1 EACH TAB PO SCH ×2 (07:48→20:18)
[2018-04-13] MEDS: POLYETHYLENE GLYCOL 3350 17 GM POWD.PACK PO SCH (07:49)
[2018-04-13] MEDS: MAGNESIUM HYDROXIDE 2,400 MG/10 ML CUP PO SCH (07:49)
[2018-04-13] MEDS: clonazePAM 1 MG TAB PO SCH ×2 (07:49→07:51)
[2018-04-13] MEDS: POTASSIUM CHLORIDE ER 20 MEQ TAB.ER PO SCH (07:50)
[2018-04-13] MEDS: METOPROLOL TARTRATE 50 MG TAB PO SCH ×2 (07:50→21:58)
[2018-04-13] MEDS: FUROSEMIDE 10 MG/ML 4 ML VIAL IV SCH (07:50)
[2018-04-13] MEDS: DOCUSATE 100 MG CAP PO SCH (07:50)
[2018-04-13] MEDS: ALLOPURINOL 100 MG TAB PO SCH ×2 (07:50→21:58)
[2018-04-13] MEDS: PANTOPRAZOLE 40 MG TABLET PO SCH (07:51)
[2018-04-13 07:58] LABS: Anisocytosis Slight; Basophils # (A) 0.1 k/uL (0-0.2); Basophils % (A) 1 %; Eosinophils # (A) 0.3 k/uL (0-0.7); Eosinophils % (A) 3 %; HCT 41.4 % (39.0-53.0); HGB 13.8 gm/dL (13.0-17.5); Lymphocytes # (A) 1.2 k/uL (1.0-4.8); Lymphocytes % (A) 12 %; MCH 30.9 pg (25.0-35.0); MCHC 33.3 g/dL (31.0-37.0); MCV 92.7 fL (80.0-100.0); Mean Platelet Volume 7.4; Monocytes # (A) 0.7 k/uL (0-1.0); Monocytes % (A) 7 %; Neutrophils # (A) 7.6 k/uL (1.3-7.7); Neutrophils % (A) 76 %; Platelet Count 184 k/uL (150-450); RBC 4.47 m/uL (4.30-5.90)
[2018-04-13 08:08] LABS: Calcium 9.5 mg/dL (8.4-10.2); Magnesium 2.1 mg/dL (1.6-2.3); Phosphorus 3.2 mg/dL (2.5-4.5); Potassium 4.3 mmol/L (3.5-5.1)
--- NOTE | 2018-04-13 08:24 | P.PN ---
Subjective Progress Note Date: 04/12/18 This is 57 years old morbidly obese male who presented to the emergency department with rectal pain patient admitted insertion of shaving cream can in the rectum and x-ray confirmed the diagnosis patient was taken to the operating room with exploratory laparotomy was done by Dr. Taylor patient was kept on the ventilator due to difficulty weaning off the ventilator patient was admitted to the ICU and currently patient is sedated on full vent support with oxygen 50% and PEEP of 8 and respiratory rate of 16. Patient was following commands to the nursing staff when he was off sedation earlier this morning. Patient has compensated past medical history including paroxysmal atrial fibrillation on a blood thinner at home, COPD, congestive heart failure, morbid obesity, diabetes type 2 insulin-dependent, hypertension and hyperlipidemia. Patient had a history also of obstructive sleep apnea 04/11: Patient is to be weaned off ventilator. He is currently nothing by mouth status. He is voiding adequately with Mccloud catheter in place. teletypesetter monitor is atrial fibrillation with controlled rate. Vital signs have been stable. Patient has been afebrile. Case management to meet with patient this afternoon for discharge planning. 04/12: Patient was successfully extubated yesterday. He tolerated clear liquid diet yesterday and has been advanced to full liquid this morning which he is also tolerating. His white count is down to 10.1. Patient has been hemodynamically stable and prepared for transfer out of the intensive care unit. His hemoglobin is stable at 12. Capillary blood glucose running between 107-123. Patient is now seen on the [facility] floor. Repeat chest x-ray and an echocardiogram will be obtained. Patient's regulatory internship is Dr. Valladares and he last saw him about 2 months ago. Objective - Vital Signs Vital signs: Vital Signs Temp 98.0 F 04/12/18 00:00 Pulse 96 04/12/18 10:00 Resp 19 04/12/18 10:00 BP 192/98 04/12/18 10:00 Pulse Ox 92 L 04/12/18 10:00 Intake & Output 04/11/18 04/12/18 04/12/18 18:59 06:59 18:59 Intake Total 750 700.0 250 Output Total 1675 2009 895 Balance -925 -1310.0 -645 Weight 192.7 kg Intake: IV 600 700.0 200 D5-0.45% NaCl with KCl 600 550 150 20Meq/l 1,000 ml @ 50 mls /hr IV .Q20H [facility] Rx#: [id number] Magnesium Sulfate-D5w Pmx 100 1 gm In Dextrose/Water 1 100ml.bag @ 100 mls/hr IVPB Q1H [facility] Rx#: [id number] Piperacillin-Tazobactam 3 50.0 50 .375 gm In Dextrose/Water 1 50ml.bag @ 12.5 mls/hr IVPB Q8HR [facility] Rx#: [id number] Intake, IV Titration 150 50 Amount Piperacillin-Tazobactam 3 50 50 .375 gm In Dextrose/Water 1 50ml.bag @ 12.5 mls/hr IVPB Q8HR [facility] Rx#: [id number] Propofol 1,000 mg In 100 Empty Bag 1 bag @ Titrate IV .Q0M [facility] Rx#: [id number] Output: Drainage 20 Left Lower Abdomen 20 Urine 1675 2010 875 Other: Voiding Method Indwelling Catheter Indwelling Catheter Indwelling Catheter ABP, PAP, CO, CI - Last Documented Arterial Blood Pressure 124/88 - Exam Gen: This is a morbidly obese 57-year-old male. He is in bed and appears to be comfortable. HEENT: Head is atraumatic, normocephalic. Pupils equal, round. Sclerae is anicteric. NECK: Supple. No JVD. No lymphadenopathy. No thyromegaly. LUNGS: Clear to auscultation. No wheezes or rhonchi. No intercostal retractions. HEART: Regular rate and rhythm. No murmur. ABDOMEN: Morbidly obese. Soft. Bowel sounds are hypoactive. Dressing in place to the mid abdomen with only a small area of drainage documented. EVIN drain with serosanguineous fluid. EXTREMITIES: No pedal edema. No calf tenderness. NEUROLOGICAL: Patient is awake, alert and oriented x3. Cranial nerves 2 through 12 are grossly intact. - Constitutional General appearance: Present: morbidly obese, no acute distress - EENT Eyes: Present: PERRLA, normal appearance - Neck Neck: Present: normal ROM. Absent: lymphadenopathy, rigidity, stridor, thyromegaly - Respiratory Respiratory: bilateral: CTA, negative: diminished, dullness, rales, rhonchi, wheezing, prolonged expiration, prolonged inspiration - Cardiovascular Rhythm: regular Heart sounds: normal: S1, S2 Abnormal Heart Sounds: Absent: systolic murmur, diastolic murmur - Gastrointestinal General gastrointestinal: Present: normal bowel sounds, soft. Absent: organomegaly, tenderness - Integumentary Integumentary: Present: normal - Neurologic Neurologic: Present: CNII-XII intact - Psychiatric Psychiatric: Present: A&O x's 3, appropriate affect, intact judgment & insight - Labs CBC & Chem 7: 04/13/18 07:33 04/13/18 07:33 Labs: Abnormal Lab Results - Last 24 Hours (Table) 04/11/18 04/11/18 04/12/18 Range/Units 11:49 18:02 00:06 RBC (4.30-5.90) m/uL Hgb (13.0-17.5) gm/dL Hct (39.0-53.0) % Carbon Dioxide (22-30) mmol/L Glucose (74-99) mg/dL POC Glucose (mg/dL) 115 H 115 H 123 H (75-99) mg/dL 04/12/18 04/12/18 04/12/18 Range/Units 04:06 04:06 06:02 RBC 4.08 L (4.30-5.90) m/uL Hgb 12.0 L (13.0-17.5) gm/dL Hct 37.5 L (39.0-53.0) % Carbon Dioxide 36 H (22-30) mmol/L Glucose 117 H (74-99) mg/dL POC Glucose (mg/dL) 107 H (75-99) mg/dL Microbiology - Last 24 Hours (Table) 04/10/18 03:31 Gram Stain - Final Sputum Sputum Culture - Final 04/10/18 10:45 Urine Culture - Final Urine,Catheterized Assessment and Plan Plan: 1. Acute on chronic hypoxic and hypercapnic respiratory failure successfully extubated. 2. Morbid obesity with obstructive sleep apnea. 3. Foreign body in the rectum status post exploratory laparotomy. 4. Chronic diastolic heart failure. 5. COPD, stable not in exacerbation. 6. Paroxysmal atrial fibrillation. 7. Diabetes mellitus insulin-dependent. 8. Hypertension. 9. Hyperlipidemia. 10. GERD. 11. Generalized osteoarthritis. 12. Peripheral neuropathy. 13. Gout. 14. Remote history of smoking. Patient has been successfully extubated yesterday. He is continued on nebulizer treatments [id number]. Continue Zosyn. Patient is tolerating clear liquid diet which is to be advanced to full liquid today. White count remains normal. Patient has been afebrile. BUN 18 and creatinine 1.10. Blood blood glucose running between 107 and 123. Mccloud catheter remains in place. Repeat chest x-ray and echocardiogram obtained. Discharge plan: Home with [facility]NA Impression and plan of care have been directed as dictated by the signing physician. Kirsten Michael nurse practitioner acting as scribe for signing physician.
--- NOTE | 2018-04-13 08:26 | P.PN ---
Subjective Progress Note Date: 04/13/18 Principal diagnosis: Sigmoid colon foreign-body Patient without new complaints. No bowel movement. No nausea or vomiting. Appetite slightly improved. Still with pain in the region of the pannus. He feels a pulling sensation. Objective - Vital Signs Vital signs: Vital Signs Temp 97.9 F 04/13/18 05:51 Pulse 96 04/13/18 07:28 Resp 16 04/13/18 05:51 BP 150/79 04/13/18 05:51 Pulse Ox 91 L 04/13/18 05:51 Intake & Output 04/12/18 04/13/18 04/13/18 18:59 06:59 18:59 Intake Total 950 50 Output Total 915 0 800 Balance 35 -800 Weight 192.7 kg 192.5 kg Intake: IV 900 50 D5-0.45% NaCl with KCl 150 20Meq/l 1,000 ml @ 50 mls /hr IV .Q20H [facility] Rx#: [id number] Magnesium Sulfate-D5w Pmx 700 1 gm In Dextrose/Water 1 100ml.bag @ 100 mls/hr IVPB Q1H [facility] Rx#: [id number] Piperacillin-Tazobactam 3 50 50 .375 gm In Dextrose/Water 1 50ml.bag @ 12.5 mls/hr IVPB Q8HR [facility] Rx#: [id number] Intake, IV Titration 50 Amount Piperacillin-Tazobactam 3 50 .375 gm In Dextrose/Water 1 50ml.bag @ 12.5 mls/hr IVPB Q8HR [facility] Rx#: [id number] Output: Drainage 40 Left Lower Abdomen 40 Urine 875 2050 800 Other: Voiding Method Indwelling Catheter Urinal ABP, PAP, CO, CI - Last Documented Arterial Blood Pressure 124/88 - Exam Abdomen: Soft, nondistended, incision clean and dry - Labs CBC & Chem 7: 04/13/18 07:33 04/13/18 07:33 Labs: Abnormal Lab Results - Last 24 Hours (Table) 04/12/18 04/12/18 04/13/18 Range/Units 17:19 20:27 05:39 RDW (11.5-15.5) % Chloride (98-107) mmol/L Carbon Dioxide (22-30) mmol/L Glucose (74-99) mg/dL POC Glucose (mg/dL) 105 H 158 H 103 H (75-99) mg/dL 04/13/18 04/13/18 Range/Units 07:33 07:33 RDW 16.0 H (11.5-15.5) % Chloride 95 L (98-107) mmol/L Carbon Dioxide 38 H (22-30) mmol/L Glucose 138 H (74-99) mg/dL POC Glucose (mg/dL) (75-99) mg/dL Microbiology - Last 24 Hours (Table) 04/10/18 03:31 Gram Stain - Final Sputum Sputum Culture - Final Assessment and Plan (1) Foreign body in rectosigmoid (junction) Narrative/Plan: Continue low fiber diet. Increase activity levels. We'll talk to turnaround planner regarding possible rehab. Current Visit: Yes Status: Acute Code(s): T18.5XXA - FOREIGN BODY IN ANUS AND RECTUM, INITIAL ENCOUNTER SNOMED Code(s): 43246369
[2018-04-13 11:25] LABS: Glucose,Whole Blood 124 mg/dL (75-99)
--- NOTE | 2018-04-13 11:40 | P.PN ---
Subjective Progress Note Date: 04/13/18 Principal diagnosis: Respiratory failure Progress note dated 04/11/2018 57-year-old male with a history of multiple medical problems including paroxysmal atrial fibrillation, COPD, heart failure, morbid obesity, diabetes, hypertension, DJD, sleep apnea syndrome, neuropathy, gout, apparently presented to the emergency room last night with complaints of rectal foreign body. Apparently x-rays of the abdomen showed a transverse location of a shaving cream can in the lower pelvis. There is no evidence of rectal bleeding. The patient went to the operating room and apparently attempts at removing the foreign body with flexible sigmoidoscopy was unsuccessful. Hence, the patient had an exploratory laparotomy and colotomy with removal of the sigmoid colon foreign body. The patient currently is on the volume assist control mode. Tidal volume 600 FiO2 is 50% PEEP is 8. Arterial blood gases show a PaO2 of 107 PaCO2 of 61 and pH 7.38. The patient is on a dextrose and half-normal saline IV with 20 of KCl at 50 mL an hour and on propofol at 65 mics per kilogram per minute. The patient has a endotracheal tube and OG tube in place. The patient is going to be placed on a pressure support of a CPAP of 5 once the fall is been discontinued. We'll see if we can wean and extubate the patient. Chest x-ray shows bilateral consolidation and pleural effusion. Laboratory data revealed a white count of 10.1 hemoglobin 12.7 hematocrit 38.4 and platelet count of 220,000. Sodium potassium are normal. Chloride 96 CO2 36 BUN/creatinine creatinine were 19 and 1.29 respectively. Microbiology is S4 negative. Progress note dated 04/12/2018 57-year-old male with a history of multiple medical problems including paroxysmal atrial fibrillation, COPD, heart failure, morbid obesity, diabetes, hypertension, DJD, sleep apnea syndrome, neuropathy, and gout, who presented to the emergency room 2 nights ago with complaints of rectal foreign body. Chest x -ray and abdominal x-rays apparently showed a transverse location of a shaving cream can in the lower pelvis. There is no evidence of rectal bleeding and the patient went to the operating room. He is currently postop day #3 status post exploratory laparotomy and colotomy first sigmoid colon foreign body. The patient is doing relatively well he was extubated yesterday. The patient's on O2 at 5 L by nasal cannula. He is receiving a dextrose and half-normal saline IV at 20 mEq of potassium at 50 mL an hour. From my perspective, the patient may be stable enough to go to the general medical floor. The patient otherwise is doing reasonably well. The patient will get an incentive spirometry in the room for incentive spirometry. In addition, labs x-rays and medications will all be reviewed. White count is 8.0 hemoglobin is 12 hematocrit 37.5 and platelet count is normal. Sodium is 143 potassium 3.9 chloride is 99 and CO2 is 36. Progress note dated 04/13/2018 57-year-old male with a history of multiple medical problems including atrial fibrillation, COPD, heart failure, morbid obesity, diabetes, hypertension, DJD, sleep apnea syndrome, neuropathy, and gout. The patient presented to nights ago with complaints of rectal foreign body in pain in the rectal area. Abdominal x-ray showed a transverse location of a aerosol can in the lower pelvis. Attempts at removing the foreign body by sigmoidoscopy were on successful the patient ended up going to the operating room for exploratory laparotomy and colotomy. He is postop day #4 and is doing well. Will likely be discharged to rehab facility in [place], [place]. He remains on oxygen therapy. Feeling well. No respiratory issues at this time. Objective - Vital Signs Vital signs: Vital Signs Temp 97.9 F 04/13/18 05:51 Pulse 100 04/13/18 11:29 Resp 16 04/13/18 08:00 BP 150/79 04/13/18 05:51 Pulse Ox 91 L 04/13/18 05:51 Intake & Output 04/12/18 04/13/18 04/13/18 18:59 06:59 18:59 Intake Total 950 50 Output Total 915 2049 Balance Weight 192.7 kg 192.5 kg Intake: IV 900 50 D5-0.45% NaCl with KCl 150 20Meq/l 1,000 ml @ 50 mls /hr IV .Q20H [facility] Rx#: [id number] Magnesium Sulfate-D5w Pmx 700 1 gm In Dextrose/Water 1 100ml.bag @ 100 mls/hr IVPB Q1H [facility] Rx#: [id number] Piperacillin-Tazobactam 3 50 50 .375 gm In Dextrose/Water 1 50ml.bag @ 12.5 mls/hr IVPB Q8HR [facility] Rx#: [id number] Intake, IV Titration 50 Amount Piperacillin-Tazobactam 3 50 .375 gm In Dextrose/Water 1 50ml.bag @ 12.5 mls/hr IVPB Q8HR [facility] Rx#: [id number] Output: Drainage 40 45 Left Lower Abdomen 40 45 Urine 875 2050 800 Other: Voiding Method Indwelling Catheter Urinal Urinal ABP, PAP, CO, CI - Last Documented Arterial Blood Pressure 124/88 - Exam No acute distress, oriented 3, nasal O2 in place. HEENT examination is grossly unremarkable. Mucous membranes are moist. Neck supple. Full range of motion. No adenopathy thyromegaly or neck vein distention. Cardiovascular examination reveals regular rhythm rate. S1-S2 normal. No S3 or S4. No discernible murmur noted. Lungs reveal clear breath sounds. Her sounds are equal bilaterally. No adventitious lung sounds including wheezes rhonchi or crackles. Abdomen is obese but soft without bowel sounds. Extremities are intact. There is significant lower extremity edema with chronic venous stasis and hyperpigmentation noted. Skin is without rash or lesion, save for the above. Neurologic examination is nonfocal. - Labs CBC & Chem 7: 04/13/18 07:33 04/13/18 07:33 Labs: Abnormal Lab Results - Last 24 Hours (Table) 04/12/18 04/12/18 04/13/18 Range/Units 17:19 20:27 05:39 RDW (11.5-15.5) % Chloride (98-107) mmol/L Carbon Dioxide (22-30) mmol/L Glucose (74-99) mg/dL POC Glucose (mg/dL) 105 H 158 H 103 H (75-99) mg/dL 04/13/18 04/13/18 04/13/18 Range/Units 07:33 07:33 11:21 RDW 16.0 H (11.5-15.5) % Chloride 95 L (98-107) mmol/L Carbon Dioxide 38 H (22-30) mmol/L Glucose 138 H (74-99) mg/dL POC Glucose (mg/dL) 124 H (75-99) mg/dL Microbiology - Last 24 Hours (Table) 04/10/18 03:31 Gram Stain - Final Sputum Sputum Culture - Final Assessment and Plan Assessment: Assessment Postop day #4, status post exploratory laparotomy and colotomy for sigmoid colon foreign body. Postoperative respiratory failure secondary to chronic hypoxemia and hypercapnia. History of diastolic congestive heart failure History of COPD History of mild heart failure. Status post flexible sigmoidoscopy Paroxysmal atrial fibrillation Congestive heart failure Type 2 diabetes Hyperlipidemia Benign essential hypertension DJD Sleep apnea syndrome Diabetic neuropathy Gout Morbid obesity. Plan: Plan dated 04/11/2018 We will attempted to the patient's sedation and see if we can't move towards weaning and extubation. This will include a cuff leak test as well as weaning parameters. He parameters will include a tidal volume vital capacity minute volume negative inspiratory force respiratory rate and rapid shallow breathing index. Post extubation, the patient will have nothing to eat or drink for at least 6 hours. We will make sure the patient continues on updrafts 4 times a day and when necessary. Additional recommendations and suggestions are forthcoming. The patient we placed on PSV 8 CPAP of 5. We'll follow closely. Critical care time 40 minutes Plan dated 04/12/2018 The patient will possibly may be moved out to the floor. He is currently on 5 L nasal cannula. He is receiving a dextrose IV with half-normal saline with 20 mEq potassium at 50 mL an hour. The patient seemed relatively stable. We'll review all his medication. The patient Pulmicort and formoterol be switched to Symbicort. We'll get an incentive spirometer in the room. Additional recommendations and suggestions are forthcoming. The IV medications can be switched to oral. Additional recommendations and suggestions are forthcoming. Prognosis is guarded. Critical care time is 32 minutes. Plan dated 04/13/2018 The patient's doing well. Still on nasal O2 as he was on home. No pulmonary issues at this time. The patient will likely be discharged to a rehab facility. He thinks his feet rehab facility in [facility] which is where he lives. The patient's medications were modified yesterday in his Pulmicort and formoterol was switched to Symbicort. We did get an incentive spirometer in the room for him. He was moved out of the ICU yesterday. No changes or other issues to deal with at this time. Time with Patient: Less than 30
--- NOTE | 2018-04-13 12:21 | ECHOF ---
Referral Reason:LVF MEASUREMENTS -------- HEIGHT: 185.4 cm WEIGHT: 192.3 kg BP: 192/98 RVIDd: 3.5 cm (< 3.3) IVSd: 2.1 cm (0.6 - 1.1) LVIDd: 5.0 cm (3.9 - 5.3) LVPWd: 1.3 cm (0.6 - 1.1) IVSs: 2.4 cm LVIDs: 3.7 cm LVPWs: 1.7 cm LAESV Index (A-L): 58.03 ml/m Ao Diam: 3.5 cm (2.0 - 3.7) AV Cusp: 1.7 cm (1.5 - 2.6) LA Diam: 5.7 cm (2.7 - 3.8) EPSS: 0.9 cm MV E Jon: 1.08 m/s MV DecT: 150 ms MV A Jon: 0.00 m/s MV E/A Ratio: 43290 RAP: 10.00 mmHg RVSP: 53.97 mmHg MV EF SLOPE: 94.68 mm/s (70 - 150) MV EXCURSION: 1.51 cm (> 18.000) FINDINGS -------- Sinus rhythm. This was a technically adequate study. The left ventricular size is normal. Overall left ventricular systolic function is normal with, an EF between 55 - 60 %. Severe asymmetric septal hypertrophy with septal thickness 2.0 - 2.9 cm. The right ventricle is mildly enlarged. LA is severely dilated >40 ml/m2 The right atrium is markedly enlarged. Aortic valve is trileaflet and is mildly thickened. There is no evidence of aortic regurgitation. There is no evidence of aortic stenosis. Mild mitral annular calcification present. Moderate mitral regurgitation is present. Moderate tricuspid regurgitation present. There is mild to moderate pulmonary hypertension. The r ight ventricular systolic pressure, as measured by Doppler, is 53.97mmHg. Trace/mild (physiologic) pulmonic regurgitation. The aortic root size is normal. The IVC is dilated with normal collapse. There is no pericardial effusion. CONCLUSIONS -------- 1. Sinus rhythm. 2. This was a technically adequate study. 3. The left ventricular size is normal. 4. Overall left ventricular systolic function is normal with, an EF between 55 - 60 %. 5. Severe asymmetric septal hypertrophy with septal thickness 2.0 - 2.9 cm. 6. The right ventricle is mildly enlarged. 7. LA is severely dilated >40 ml/m2 8. The right atrium is markedly enlarged. 9. Aortic valve is trileaflet and is mildly thickened. 10. Mild mitral annular calcification present. 11. Moderate mitral regurgitation is present. 12. Moderate tricuspid regurgitation present. 13. There is mild to moderate pulmonary hypertension. 14. The right ventricular systolic pressure, as measured by Doppler, is 53.97mmHg. 15. Trace/mild (physiologic) pulmonic regurgitation. 16. The aortic root size is normal. 17. The IVC is dilated with normal collapse. 18. There is no pericardial effusion. REMOVABLE PROSTHODONTIST: Armaan Montaño RDCS
--- NOTE | 2018-04-13 15:15 | P.PN ---
Subjective Progress Note Date: 04/13/18 This is 57 years old morbidly obese male who presented to the emergency department with rectal pain patient admitted insertion of shaving cream can in the rectum and x-ray confirmed the diagnosis patient was taken to the operating room with exploratory laparotomy was done by Dr. Taylor patient was kept on the ventilator due to difficulty weaning off the ventilator patient was admitted to the ICU and currently patient is sedated on full vent support with oxygen 50% and PEEP of 8 and respiratory rate of 16. Patient was following commands to the nursing staff when he was off sedation earlier this morning. Patient has compensated past medical history including paroxysmal atrial fibrillation on a blood thinner at home, COPD, congestive heart failure, morbid obesity, diabetes type 2 insulin-dependent, hypertension and hyperlipidemia. Patient had a history also of obstructive sleep apnea 04/11: Patient is to be weaned off ventilator. He is currently nothing by mouth status. He is voiding adequately with Mccloud catheter in place. phototypesetting equipment monitor is atrial fibrillation with controlled rate. Vital signs have been stable. Patient has been afebrile. Case management to meet with patient this afternoon for discharge planning. 04/12: Patient was successfully extubated yesterday. He tolerated clear liquid diet yesterday and has been advanced to full liquid this morning which he is also tolerating. His white count is down to 10.1. Patient has been hemodynamically stable and prepared for transfer out of the intensive care unit. His hemoglobin is stable at 12. Capillary blood glucose running between 107-123. Patient is now seen on the [facility] floor. Repeat chest x-ray and an echocardiogram will be obtained. Patient's procurement engineer is Dr. Valladares and he last saw him about 2 months ago. 04/13: Echocardiogram reveals EF of 55-60%, LA severely dilated greater than 40, mild mitral calcification, moderate mitral regurgitation, moderate tricuspid regurgitation, moderate pulmonary hypertension, IVC is dilated with normal color labs. No pericardial effusion. Chest x-ray shows cardiomegaly, probable basilar atelectasis, correlate to exclude pneumonia. Follow-up 2 view x-ray ordered. Patient states he had a very small bowel movement this morning. He is passing gas. He is tolerating full liquids without any difficulty. He has now on a low fiber diet. Drain remains in place. Patient is now planning to go to subacute rehab. Objective - Vital Signs Vital signs: Vital Signs Temp 97.9 F 04/13/18 05:51 Pulse 96 04/13/18 07:28 Resp 16 04/13/18 05:51 BP 150/79 04/13/18 05:51 Pulse Ox 91 L 04/13/18 05:51 Intake & Output 04/12/18 04/13/18 04/13/18 18:59 06:59 18:59 Intake Total 950 50 Output Total 915 2049 800 Balance 35 -800 Weight 192.7 kg 192.5 kg Intake: IV 900 50 D5-0.45% NaCl with KCl 150 20Meq/l 1,000 ml @ 50 mls /hr IV .Q20H [facility] Rx#: [id number] Magnesium Sulfate-D5w Pmx 700 1 gm In Dextrose/Water 1 100ml.bag @ 100 mls/hr IVPB Q1H [facility] Rx#: [id number] Piperacillin-Tazobactam 3 50 50 .375 gm In Dextrose/Water 1 50ml.bag @ 12.5 mls/hr IVPB Q8HR [facility] Rx#: [id number] Intake, IV Titration 50 Amount Piperacillin-Tazobactam 3 50 .375 gm In Dextrose/Water 1 50ml.bag @ 12.5 mls/hr IVPB Q8HR [facility] Rx#: [id number] Output: Drainage 40 Left Lower Abdomen 40 Urine 875 0 800 Other: Voiding Method Indwelling Catheter Urinal ABP, PAP, CO, CI - Last Documented Arterial Blood Pressure 124/88 - Exam Gen: This is a morbidly obese 57-year-old male. He is in bed and appears to be comfortable. HEENT: Head is atraumatic, normocephalic. Pupils equal, round. Sclerae is anicteric. NECK: Supple. No JVD. No lymphadenopathy. No thyromegaly. LUNGS: Clear to auscultation. No wheezes or rhonchi. No intercostal retractions. HEART: Regular rate and rhythm. No murmur. ABDOMEN: Morbidly obese. Soft. Bowel sounds are hypoactive. Dressing in place to the mid abdomen with only a small area of drainage documented. EVIN drain with serosanguineous fluid. EXTREMITIES: No pedal edema. No calf tenderness. NEUROLOGICAL: Patient is awake, alert and oriented x3. Cranial nerves 2 through 12 are grossly intact. - Labs CBC & Chem 7: 04/13/18 07:33 04/13/18 07:33 Labs: Abnormal Lab Results - Last 24 Hours (Table) 04/12/18 04/12/18 04/13/18 Range/Units 17:19 20:27 05:39 RDW (11.5-15.5) % Chloride (98-107) mmol/L Carbon Dioxide (22-30) mmol/L Glucose (74-99) mg/dL POC Glucose (mg/dL) 105 H 158 H 103 H (75-99) mg/dL 04/13/18 04/13/18 Range/Units 07:33 07:33 RDW 16.0 H (11.5-15.5) % Chloride 95 L (98-107) mmol/L Carbon Dioxide 38 H (22-30) mmol/L Glucose 138 H (74-99) mg/dL POC Glucose (mg/dL) (75-99) mg/dL Microbiology - Last 24 Hours (Table) 04/10/18 03:31 Gram Stain - Final Sputum Sputum Culture - Final Assessment and Plan Plan: 1. Acute on chronic hypoxic and hypercapnic respiratory failure. Patient has been successfully extubated yesterday. He is continued on nebulizer treatments [id number]. Continue Symbicort twice daily, O2 at 2-3 L around the clock. Consult with Dr. Echavarria appreciated. 2. Morbid obesity with obstructive sleep apnea. 3. Foreign body in the rectum status post exploratory laparotomy. Continue Zosyn. Continue low fiber diet. 4. Chronic diastolic heart failure. Continue Lasix 40 mg IV daily. Continue potassium. 5. COPD, stable not in exacerbation. Continue as in #1. 6. Paroxysmal atrial fibrillation. Pradaxa is currently on hold. Continue Lanoxin 125 g daily, metoprolol tartrate 51 g twice daily. 7. Diabetes mellitus type II, insulin requiring. Continue NovoLog scale before meals and at bedtime. Patient will require more insulin once he is eating a full diet. 8. Hypertension. Continue Lopressor. 9. Hyperlipidemia.Continue Lipitor. 10. GERD.Continue Protonix. 11. Generalized osteoarthritis. 12. Peripheral neuropathy.Continue gabapentin. 13. Gout, Stable. Continue allopurinol. 14. Remote history of smoking. Discharge plan: [facility], [facility] Impression and plan of care have been directed as dictated by the signing physician. Kirsten Michael nurse practitioner acting as scribe for signing physician.
--- NOTE | 2018-04-13 15:53 | XR ---
EXAMINATION TYPE: XR chest 2V DATE OF EXAM: 04/13/2018 COMPARISON: Prior chest x-ray 04/12/2018 HISTORY: Pneumonia TECHNIQUE: Frontal and lateral views of the chest are obtained. FINDINGS: Patchy densities present at the right lung base. Heart is enlarged. No pneumothorax or ple ural effusion is evident. Pulmonary vascularity and maxwell show a similar appearance, prominence of pul monary artery could be due to pulmonary artery hypertension. Prominent lung volumes suggest underlyin g COPD. IMPRESSION: Findings may be due to basilar atelectasis rather than pneumonia, correlate. Additional findings above.
[2018-04-13 17:15] LABS: Glucose,Whole Blood 110 mg/dL (75-99)
[2018-04-13 20:17] LABS: Glucose,Whole Blood 144 mg/dL (75-99)
[2018-04-13 21:34] VITALS: RESP 18
[2018-04-13] MEDS: GABAPENTIN 300 MG CAP PO SCH (21:58)
[2018-04-13] MEDS: ATORVASTATIN 10 MG TAB PO SCH (21:58)
[2018-04-13] MEDS: MELATONIN 3 MG TABLET PO SCH (21:58)
[2018-04-14] MEDS: HYDROmorphone 0.5 MG/0.5 ML SYRINGE IVP PRN (03:35)
[2018-04-14 05:29] VITALS: BP 119/69; TEMP 98
[2018-04-14 07:18] LABS: Glucose,Whole Blood 113 mg/dL (75-99)
[2018-04-14] MEDS: INSULIN ASPART 100 UNIT/ML 1 ML 10 ML VIAL SQ SCH ×2 (07:41→12:51)
[2018-04-14] MEDS: IPRATROPIUM-ALBUTEROL 3 ML NEB INHALATION SCH ×2 (07:49→11:32)
[2018-04-14] MEDS: SYMBICORT 160-4.5 MCG INHALER INHALATION SCH (07:49)
[2018-04-14] MEDS: PIPERACILLIN-TAZOBACTAM 3.375 GM in DEXTROSE/WATER 1 50ML.BAG IVPB SCH (08:30)
[2018-04-14] MEDS: PANTOPRAZOLE 40 MG TABLET PO SCH (08:32)
[2018-04-14] MEDS: HEPARIN SODIUM,PORCINE 5,000 UNIT/ML 1 ML VIAL SQ SCH (08:32)
[2018-04-14] MEDS: POLYETHYLENE GLYCOL 3350 17 GM POWD.PACK PO SCH (08:33)
[2018-04-14] MEDS: DOCUSATE 100 MG CAP PO SCH (08:33)
[2018-04-14] MEDS: POTASSIUM CHLORIDE ER 20 MEQ TAB.ER PO SCH (08:33)
[2018-04-14] MEDS: ALLOPURINOL 100 MG TAB PO SCH (08:33)
[2018-04-14] MEDS: DIGOXIN 125 MCG TAB PO SCH (08:34)
[2018-04-14] MEDS: HYDROcodone/APAP 7.5-325MG 1 EACH TAB PO SCH (08:34)
[2018-04-14] MEDS: METOPROLOL TARTRATE 50 MG TAB PO SCH (08:34)
[2018-04-14] MEDS: clonazePAM 1 MG TAB PO SCH (08:48)
[2018-04-14] MEDS: MAGNESIUM HYDROXIDE 2,400 MG/10 ML CUP PO SCH (08:48)
[2018-04-14 08:58] LABS: Basophils # (A) 0.1 k/uL (0-0.2); Basophils % (A) 1 %; Eosinophils # (A) 0.4 k/uL (0-0.7); Eosinophils % (A) 4 %; HCT 40.4 % (39.0-53.0); HGB 13.2 gm/dL (13.0-17.5); Lymphocytes % (A) 11 %; MCH 30.4 pg (25.0-35.0); MCHC 32.6 g/dL (31.0-37.0); MCV 93.3 fL (80.0-100.0); Mean Platelet Volume 7.4; Monocytes # (A) 0.6 k/uL (0-1.0); Monocytes % (A) 7 %; Neutrophils # (A) 6.6 k/uL (1.3-7.7); Neutrophils % (A) 75 %; Platelet Count 178 k/uL (150-450); RBC 4.33 m/uL (4.30-5.90); RDW 15.9 % (11.5-15.5); WBC 8.8 k/uL (3.8-10.6)
[2018-04-14] MEDS ORDERED: FUROSEMIDE 10 MG/ML 4 ML VIAL IV SCH (09:00)
[2018-04-14 09:27] LABS: Calcium 9.1 mg/dL (8.4-10.2); Magnesium 2.2 mg/dL (1.6-2.3); Potassium 4.4 mmol/L (3.5-5.1)
[2018-04-14 11:49] VITALS: PULSE 96
[2018-04-14 11:59] LABS: Glucose,Whole Blood 142 mg/dL (75-99)
--- NOTE | 2018-04-14 13:46 | P.PN ---
Subjective Progress Note Date: 04/14/18 This is 57 years old morbidly obese male who presented to the emergency department with rectal pain patient admitted insertion of shaving cream can in the rectum and x-ray confirmed the diagnosis patient was taken to the operating room with exploratory laparotomy was done by Dr. Taylor patient was kept on the ventilator due to difficulty weaning off the ventilator patient was admitted to the ICU and currently patient is sedated on full vent support with oxygen 50% and PEEP of 8 and respiratory rate of 16. Patient was following commands to the nursing staff when he was off sedation earlier this morning. Patient has compensated past medical history including paroxysmal atrial fibrillation on a blood thinner at home, COPD, congestive heart failure, morbid obesity, diabetes type 2 insulin-dependent, hypertension and hyperlipidemia. Patient had a history also of obstructive sleep apnea 04/11: Patient is to be weaned off ventilator. He is currently nothing by mouth status. He is voiding adequately with Mccloud catheter in place. personnel monitor is atrial fibrillation with controlled rate. Vital signs have been stable. Patient has been afebrile. Case management to meet with patient this afternoon for discharge planning. 04/12: Patient was successfully extubated yesterday. He tolerated clear liquid diet yesterday and has been advanced to full liquid this morning which he is also tolerating. His white count is down to 10.1. Patient has been hemodynamically stable and prepared for transfer out of the intensive care unit. His hemoglobin is stable at 12. Capillary blood glucose running between 107-123. Patient is now seen on the [facility] floor. Repeat chest x-ray and an echocardiogram will be obtained. Patient's ad operations specialist is Dr. Valladares and he last saw him about 2 months ago. 04/13: Echocardiogram reveals EF of 55-60%, LA severely dilated greater than 40, mild mitral calcification, moderate mitral regurgitation, moderate tricuspid regurgitation, moderate pulmonary hypertension, IVC is dilated with normal color labs. No pericardial effusion. Chest x-ray shows cardiomegaly, probable basilar atelectasis, correlate to exclude pneumonia. Follow-up 2 view x-ray ordered. Patient states he had a very small bowel movement this morning. He is passing gas. He is tolerating full liquids without any difficulty. He has now on a low fiber diet. Drain remains in place. Patient is now planning to go to subacute rehab. 04/14: Repeat chest x-ray, two-view is showing findings due to basilar atelectasis rather than pneumonia. Patient has been afebrile. Vital signs are stable. Pulse ox 94% on 3 L nasal cannula.v patient is scheduled for discharge to [facility] which will occur later today once all arrangements are completed. Patient states he is passing some stool a little bed with gas. He states when stool he has has been brown. Patient will need to be resumed back on Pradaxa. Objective - Vital Signs Vital signs: Vital Signs Temp 98.0 F 04/14/18 05:28 Pulse 94 04/14/18 08:02 Resp 18 04/14/18 05:28 BP 119/69 04/14/18 05:28 Pulse Ox 94 L 04/14/18 07:49 Intake & Output 04/13/18 04/14/18 04/14/18 18:59 06:59 18:59 Intake Total 50 530 Output Total 890 Balance -840 530 Intake: IV 50 50 Piperacillin-Tazobactam 3 50 50 .375 gm In Dextrose/Water 1 50ml.bag @ 12.5 mls/hr IVPB Q8HR [facility] Rx#: [id number] Oral 480 Output: Drainage 90 Left Lower Abdomen 90 Urine 800 Other: Voiding Method Urinal Urinal # Voids 1 ABP, PAP, CO, CI - Last Documented Arterial Blood Pressure 124/88 - Exam Gen: This is a morbidly obese 57-year-old male. He is in bed and appears to be comfortable. HEENT: Head is atraumatic, normocephalic. Pupils equal, round. Sclerae is anicteric. NECK: Supple. No JVD. No lymphadenopathy. No thyromegaly. LUNGS: Clear to auscultation. No wheezes or rhonchi. No intercostal retractions. HEART: Regular rate and rhythm. No murmur. ABDOMEN: Morbidly obese. Soft. Bowel sounds are active. Dressing in place to the mid abdomen with only a small area of drainage documented. EVIN drain with serosanguineous fluid. EXTREMITIES: No pedal edema. No calf tenderness. NEUROLOGICAL: Patient is awake, alert and oriented x3. Cranial nerves 2 through 12 are grossly intact. - Labs CBC & Chem 7: 04/14/18 08:03 04/14/18 08:03 Labs: Abnormal Lab Results - Last 24 Hours (Table) 04/13/18 04/13/18 04/13/18 Range/Units 11:21 17:13 20:12 RDW (11.5-15.5) % Chloride (98-107) mmol/L Carbon Dioxide (22-30) mmol/L Glucose (74-99) mg/dL POC Glucose (mg/dL) 124 H 110 H 144 H (75-99) mg/dL 04/14/18 04/14/18 04/14/18 Range/Units 07:17 08:03 08:03 RDW 15.9 H (11.5-15.5) % Chloride 95 L (98-107) mmol/L Carbon Dioxide 38 H (22-30) mmol/L Glucose 126 H (74-99) mg/dL POC Glucose (mg/dL) 113 H (75-99) mg/dL Assessment and Plan Plan: 1. Acute on chronic hypoxic and hypercapnic respiratory failure. Patient has been successfully extubated yesterday. He is continued on nebulizer treatments [id number]. Continue Symbicort twice daily, O2 at 2-3 L around the clock. Consult with Dr. Simón bernardo. 2. Morbid obesity with obstructive sleep apnea. 3. Foreign body in the rectum status post exploratory laparotomy. Continue Zosyn. Continue low fiber diet. 4. Chronic diastolic heart failure. Continue Lasix 40 mg IV daily. Continue potassium. 5. COPD, stable not in exacerbation. Continue as in #1. 6. Paroxysmal atrial fibrillation. Pradaxa is currently on hold. Continue Lanoxin 125 g daily, metoprolol tartrate 51 g twice daily. 7. Diabetes mellitus type II, insulin requiring. Continue NovoLog scale before meals and at bedtime. Patient will require more insulin once he is eating a full diet. 8. Hypertension. Continue Lopressor. 9. Hyperlipidemia.Continue Lipitor. 10. GERD.Continue Protonix. 11. Generalized osteoarthritis. 12. Peripheral neuropathy.Continue gabapentin. 13. Gout, Stable. Continue allopurinol. 14. Remote history of smoking. Discharge plan: [facility] Impression and plan of care have been directed as dictated by the signing physician. Kirsten Michael nurse practitioner acting as scribe for signing physician.
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
[2018-04-14] MEDS ORDERED: HYDROmorphone 4 MG TABLET PO PRN (14:17)
== END 2018-04-14 15:37 | DRG 344 ==
LOC: EC 19:17 → 3SUR 21:02 → 6ICU 22:20 → OBSVTOIN 23:33 → 6ICU 04-10 14:35 → 5MS5E 04-12 11:01
PROVIDERS: ADMIT Surgery; ATTEND Surgery
PROC: 0DJD8ZZ Inspection of Lower Intestinal Tract, Via Natural or Artificial Opening Endoscopic (ICD-10-PCS; 2018-04-09)
PROC: 0DCN0ZZ Extirpation of Matter from Sigmoid Colon, Open Approach (ICD-10-PCS; principal; 2018-04-09 20:56)
DX: T18.4XXA Foreign body in colon, initial encounter (principal); J96.22 Acute and chronic respiratory failure with hypercapnia; J96.21 Acute and chronic respiratory failure with hypoxia; Z68.43 Body mass index [BMI] 50.0-59.9, adult; I50.32 Chronic diastolic (congestive) heart failure; E66.2 Morbid (severe) obesity with alveolar hypoventilation; J98.11 Atelectasis; E11.40 Type 2 diabetes mellitus with diabetic neuropathy, unspecified; I11.0 Hypertensive heart disease with heart failure; J44.9 Chronic obstructive pulmonary disease, unspecified; K21.9 Gastro-esophageal reflux disease without esophagitis; R53.81 Other malaise; M10.9 Gout, unspecified; M15.9 Polyosteoarthritis, unspecified; I27.20 Pulmonary hypertension, unspecified; I08.1 Rheumatic disorders of both mitral and tricuspid valves; E78.5 Hyperlipidemia, unspecified; I48.0 Paroxysmal atrial fibrillation; Z79.02 Long term (current) use of antithrombotics/antiplatelets; Z87.891 Personal history of nicotine dependence; Z86.14 Personal history of Methicillin resistant Staphylococcus aureus infection; Z82.49 Family history of ischemic heart disease and other diseases of the circulatory system; Z83.3 Family history of diabetes mellitus; Z82.62 Family history of osteoporosis; Z82.5 Family history of asthma and other chronic lower respiratory diseases; Z79.01 Long term (current) use of anticoagulants; Z79.4 Long term (current) use of insulin; Z79.899 Other long term (current) drug therapy
CPT/HCPCS: 36415; 36600; 71045; 71046; 74018; 80048; 80053; 80162; 81001; 82805; 83036; 83735; 84100; 85025; 85610; 85730; 87070; 87086; 87205; 88300; 93005; 93306; 94002; 94003; 94640; 94760; 99285

== ENCOUNTER 2019-02-03 13:20 | Inpatient (IN) | payer MEDICARE, OTHER ==
[2019-02-03] MEDS ORDERED: DEXAMETHASONE SOD PHOSPHATE 10 MG/ML 1 ML VIAL IV STA (13:32)
[2019-02-03] MEDS ORDERED: IPRATROPIUM-ALBUTEROL 3 ML NEB INHALATION STA (13:32)
[2019-02-03] MEDS ORDERED: ALBUTEROL NEBULIZED 2.5 MG/3 ML INHALATION STA (13:32)
[2019-02-03] MEDS ORDERED: FUROSEMIDE 10 MG/ML 4 ML VIAL IV STA (13:32)
--- NOTE | 2019-02-03 13:43 | ED ---
General Adult HPI - General Chief complaint: Shortness of Breath Stated complaint: Diff Breathing Time Seen by Provider: 02/03/19 13:20 Source: patient, EMS, RN notes reviewed, old records reviewed Mode of arrival: EMS Limitations: no limitations - History of Present Illness Initial comments: 58-year-old male presents with dyspnea and hypoxia, patient is on home oxygen, history of CHF, COPD and obesity. Patient states his home care nurse did evaluate him today, states he's had increased worsening dyspnea with ambulation. He does report fluid retention and increased lower extremity edema. Denies fever or chills. He has mild cough. Denies current chest pain, states he had some chest pain yesterday evening which resolved without treatment. No abdominal pain, no nausea vomiting. - Related Data Home Medications Medication Instructions Recorded Confirmed Allopurinol [Zyloprim] 100 mg PO BID 02/10/16 02/03/19 Dabigatran [Pradaxa] 150 mg PO BID 02/10/16 02/03/19 Fluticasone/Salmeterol [Advair 1 puff INHALATION RT-BID 02/10/16 02/03/19 250-50 Diskus] Furosemide [Lasix] 80 mg PO BID 02/10/16 02/03/19 Omeprazole [PriLOSEC] 20 mg PO AC-BID 02/10/16 02/03/19 Simvastatin [Zocor] 20 mg PO HS 02/10/16 02/03/19 Digoxin [Lanoxin] 125 mcg PO DAILY 02/11/16 02/03/19 glipiZIDE [Glucotrol] 5 mg PO DAILY 02/11/16 02/03/19 Metoprolol Tartrate [Lopressor] 150 mg PO DAILY 04/10/18 02/03/19 Ammonium Lactate Lotion 1 applic TOPICAL BID PRN 02/03/19 02/03/19 [Lac-Hydrin 12% Lotion] Aspirin [Adult Low Dose Aspirin EC] 81 mg PO DAILY 02/03/19 02/03/19 Calcium Carbonate 500 mg PO DAILY 02/03/19 02/03/19 Cholecalciferol (Vitamin D3) 2,000 unit PO DAILY 02/03/19 02/03/19 [Vitamin D3] Docusate [Colace] 100 mg PO BID 02/03/19 02/03/19 Metolazone [Zaroxolyn] 5 mg PO DAILY 02/03/19 02/03/19 Miconazole Nitrate [Miconazole 1 applic TOPICAL DAILY PRN 02/03/19 02/03/19 Nitrate 2%] Potassium Chloride ER [K-Dur 20] 20 meq PO HS 02/03/19 02/03/19 Pregabalin [Lyrica] 75 mg PO BID 02/03/19 02/03/19 traMADol HCL [Ultram] 50 mg PO TID PRN 02/03/19 02/03/19 traZODone HCL 50 mg PO HS 02/03/19 02/03/19 Previous Rx's Medication Instructions Recorded Potassium Chloride [Klor-Con 20] 40 meq PO QAM #60 tab.er.prt 02/14/16 clonazePAM [KlonoPIN] 1 mg PO BID #60 tab 04/14/18 Allergies Allergy/AdvReac Type Severity Reaction Status Date / Time No Known Allergies Allergy Verified 02/03/19 15:15 Review of Systems ROS Statement: Those systems with pertinent positive or pertinent negative responses have been documented in the HPI. ROS Other: All systems not noted in ROS Statement are negative. Past Medical History Past Medical History: Atrial Fibrillation, Heart Failure, COPD, Diabetes Rocio litus, GERD/Reflux, Hyperlipidemia, Hypertension, Neurologic Disorder, Osteoarthritis (OA), Sleep Apnea/CPAP/BIPAP Additional Past Medical History / Comment(s): NIDDM, bilateral lower leg and feet neuropathy, gout-travels everywhere per pt History of Any Multi-Drug Resistant Organisms: MRSA Date of last positivie culture/infection: 2005 or 2007 per pt-tx while pt lived in [place] MDRO Source:: Low back Past Surgical History: Adenoidectomy, Tonsillectomy Additional Past Surgical History / Comment(s): 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 Past Anesthesia/Blood Transfusion Reactions: No Reported Reaction Past Psychological History: No Psychological Hx Reported, Anxiety Smoking Status: Former smoker Past Alcohol Use History: Rare Past Drug Use History: Marijuana - Past Family History Father Family Medical History: Coronary Artery Disease (CAD) (Father at age of 74 from CAD.), Diabetes Mellitus Additional Family Medical History / Comment(s): Father had heart disease. He at age 74 of possible a [place]-pt not sure. Mother Family Medical History: Congestive Heart Failure (CHF) (Mother at age of 72 from congestive heart failure she also has CAD and COPD), COPD, Coronary Artery Disease (CAD) Additional Family Medical History / Comment(s): Mother had heart problems. She at age 72 yrs. She had osteoporosis. Brother(s) Family Medical History: No Reported History (Patient has one brother no major medical problems) Sister(s) Family Medical History: Diabetes Mellitus (Patient has one sister with diabetes mellitus type 2) Daughter(s) Family Medical History: No Reported History (Patient has 2 daughters no major medical problems) Son(s) Family Medical History: No Reported History (Patient has 2 sons no major medical problems and also he has one stepson) General Exam Limitations: no limitations General appearance: alert, in no apparent distress Head exam: Present: atraumatic, normocephalic Eye exam: Present: normal appearance, PERRL ENT exam: Present: normal exam Neck exam: Present: normal inspection. Absent: tenderness Respiratory exam: Present: wheezes, rales, decreased breath sounds, prolonged expiratory Cardiovascular Exam: Present: regular rate, irregular rhythm GI/Abdominal exam: Present: soft. Absent: distended, tenderness Extremities exam: Present: pedal edema, other (Bilateral chronic venous stasis) Neurological exam: Present: alert, oriented X3, CN II-XII intact. Absent: motor sensory deficit Psychiatric exam: Present: normal affect, normal mood Skin exam: Present: warm, dry, intact. Absent: cyanosis, diaphoretic Course Vital Signs 02/03/19 02/03/19 02/03/19 13:22 14:01 14:17 Temperature 99.4 F Pulse Rate 74 63 67 Respiratory 25 H 18 18 Rate Blood Pressure 114/58 O2 Sat by Pulse 96 Oximetry 02/03/19 15:40 Temperature Pulse Rate 79 Respiratory 16 Rate Blood Pressure 116/75 O2 Sat by Pulse 95 Oximetry EKG Findings - EKG Comments: EKG Findings:: EKG: Atrial fibrillation, incomplete left bundle, rate of 66, QRS duration 110, QTC 427, no ST segment elevation. Medical Decision Making - Medical Decision Making 58-year-old male presenting with dyspnea and hypoxia. Chest x-ray obtained, shows pulmonary hypertension, concern for infiltrate although this is chronic and stable.. Hemoglobin is stable 11.7, normal white blood cell count, CO2 is 44 consistent with CO2 retention and a creatinine slightly elevated above baseline 1.8 from 1.2. Normal BMP, troponin elevated, this patient has had troponin elevation the past, does have chronic kidney disease, and is currently anticoagulated on Pradaxa, we will trend troponin. Patient will be admitted for further treatment of COPD exacerbation, multifactorial dyspnea, and elevated troponin. Discussed with Dr. Enriquez - Lab Data Result diagrams: 02/03/19 13:35 02/03/19 13:35 Lab Results 02/03/19 02/03/19 02/03/19 Range/Units 13:35 13:35 13:35 WBC 9.6 (3.8-10.6) k/uL RBC 4.15 L (4.30-5.90) m/uL Hgb 11.7 L (13.0-17.5) gm/dL Hct 36.0 L (39.0-53.0) % MCV 86.7 (80.0-100.0) fL MCH 28.1 (25.0-35.0) pg MCHC 32.4 (31.0-37.0) g/dL RDW 16.0 H (11.5-15.5) % Plt Count 295 (150-450) k/uL Neutrophils % 76 % Lymphocytes % 12 % Monocytes % 8 % Eosinophils % 2 % Basophils % 0 % Neutrophils # 7.3 (1.3-7.7) k/uL Lymphocytes # 1.1 (1.0-4.8) k/uL Monocytes # 0.7 (0-1.0) k/uL Eosinophils # 0.2 (0-0.7) k/uL Basophils # 0.0 (0-0.2) k/uL Hypochromasia Slight Poikilocytosis Slight PT (9.0-12.0) sec INR (<1.2) APTT (22.0-30.0) sec Sodium 140 (137-145) mmol/L Potassium 3.6 (3.5-5.1) mmol/L Chloride 88 L (98-107) mmol/L Carbon Dioxide 44 H* (22-30) mmol/L Anion Gap 8 mmol/L BUN 50 H (9-20) mg/dL Creatinine 1.82 H (0.66-1.25) mg/dL Est GFR (CKD-EPI)AfAm 46 (>60 ml/min/1.73 sqM) Est GFR (CKD-EPI)NonAf 40 (>60 ml/min/1.73 sqM) Glucose 99 (74-99) mg/dL Calcium 9.2 (8.4-10.2) mg/dL Magnesium 2.0 (1.6-2.3) mg/dL Total Bilirubin 0.9 (0.2-1.3) mg/dL AST 19 (17-59) U/L ALT 24 (21-72) U/L Alkaline Phosphatase 55 (38-126) U/L Troponin I (0.000-0.034) ng/mL NT-Pro-B Natriuret Pep 984 pg/mL Total Protein 6.5 (6.3-8.2) g/dL Albumin 3.3 L (3.5-5.0) g/dL 02/03/19 02/03/19 Range/Units 13:35 13:35 WBC (3.8-10.6) k/uL RBC (4.30-5.90) m/uL Hgb (13.0-17.5) gm/dL Hct (39.0-53.0) % MCV (80.0-100.0) fL MCH (25.0-35.0) pg MCHC (31.0-37.0) g/dL RDW (11.5-15.5) % Plt Count (150-450) k/uL Neutrophils % % Lymphocytes % % Monocytes % % Eosinophils % % Basophils % % Neutrophils # (1.3-7.7) k/uL Lymphocytes # (1.0-4.8) k/uL Monocytes # (0-1.0) k/uL Eosinophils # (0-0.7) k/uL Basophils # (0-0.2) k/uL Hypochromasia Poikilocytosis PT 11.8 (9.0-12.0) sec INR 1.1 (<1.2) APTT 35.6 H (22.0-30.0) sec Sodium (137-145) mmol/L Potassium (3.5-5.1) mmol/L Chloride (98-107) mmol/L Carbon Dioxide (22-30) mmol/L Anion Gap mmol/L BUN (9-20) mg/dL Creatinine (0.66-1.25) mg/dL Est GFR (CKD-EPI)AfAm (>60 ml/min/1.73 sqM) Est GFR (CKD-EPI)NonAf (>60 ml/min/1.73 sqM) Glucose (74-99) mg/dL Calcium (8.4-10.2) mg/dL Magnesium (1.6-2.3) mg/dL Total Bilirubin (0.2-1.3) mg/dL AST (17-59) U/L ALT (21-72) U/L Alkaline Phosphatase (38-126) U/L Troponin I 0.088 H* (0.000-0.034) ng/mL NT-Pro-B Natriuret Pep pg/mL Total Protein (6.3-8.2) g/dL Albumin (3.5-5.0) g/dL Critical Care Time Critical Care Time: Yes Total Critical Care Time: 35 Disposition Clinical Impression: Right-sided heart failure, COPD (chronic obstructive pulmonary disease), A-fib Disposition: ADMITTED IP TO THIS HOSP Condition: Stable Is patient prescribed a controlled substance at d/c from ED?: No Referrals: Aramis Fry MD [Primary Care Provider] - 1-2 days Decision to Admit Reason: Admit from EC Decision Date: 02/03/19 Decision Time: 16:24
[2019-02-03 13:57] LABS: Basophils % (A) 0 %; Eosinophils # (A) 0.2 k/uL (0-0.7); Eosinophils % (A) 2 %; HGB 11.7 gm/dL (13.0-17.5); Hypochromasia Slight; Lymphocytes # (A) 1.1 k/uL (1.0-4.8); Lymphocytes % (A) 12 %; MCH 28.1 pg (25.0-35.0); MCHC 32.4 g/dL (31.0-37.0); MCV 86.7 fL (80.0-100.0); Mean Platelet Volume 9.2; Monocytes # (A) 0.7 k/uL (0-1.0); Monocytes % (A) 8 %; Neutrophils # (A) 7.3 k/uL (1.3-7.7); Neutrophils % (A) 76 %; Platelet Count 295 k/uL (150-450); Poikilocytosis Slight; RBC 4.15 m/uL (4.30-5.90); WBC 9.6 k/uL (3.8-10.6)
--- NOTE | 2019-02-03 14:00 | XR ---
EXAMINATION TYPE: XR chest 2V DATE OF EXAM: 02/03/2019 COMPARISON: 04/13/2018 TECHNIQUE: PA and lateral views submitted. HISTORY: Difficulty breathing FINDINGS: There is right lower lobe infiltrate and small effusion. The pulmonary arteries are enlarged greater on the right. Heart is enlarged. No pneumothorax or overt failure. There is a stable nodule in the le ft upper lobe may be related to granuloma unchanged from 2016. IMPRESSION: 1. Stable right lower lobe atelectasis or infiltrate. 2. Prominence of the right hilum likely reflects enlarged pulmonary artery and pulmonary arterial hyp ertension. This is stable dating back to 2016.
[2019-02-03 14:13] LABS: INR 1.1 (<1.2); Partial Thromboplastin Time 35.6 sec (22.0-30.0); Prothrombin Time 11.8 sec (9.0-12.0)
[2019-02-03 14:14] LABS: Albumin 3.3 g/dL (3.5-5.0); Calcium 9.2 mg/dL (8.4-10.2); Potassium 3.6 mmol/L (3.5-5.1); Total Bilirubin 0.9 mg/dL (0.2-1.3); Total Protein 6.5 g/dL (6.3-8.2)
[2019-02-03] MEDS ORDERED: IPRATROPIUM-ALBUTEROL 3 ML NEB INHALATION PRN (15:41)
[2019-02-03] MEDS: IPRATROPIUM-ALBUTEROL 3 ML NEB INHALATION SCH ×2 (18:35→21:27)
[2019-02-03] MEDS ORDERED: MORPHINE SULFATE 2 MG/ML SYRINGE IV PRN (18:57)
[2019-02-03] MEDS ORDERED: NALOXONE 0.4 MG/ML 1 ML VIAL IV PRN (18:57)
[2019-02-03] MEDS: LEVOFLOXACIN 500 MG TAB PO SCH (19:05)
[2019-02-03 19:06] LABS: ABG Base Excess 21.8 mmol/L; ABG PCO2 63 mmHg (35-45); ABG PH 7.47 (7.35-7.45); ABG TCO2 47 mmol/L (19-24)
[2019-02-03] MEDS: methylPREDNISolone SOD SUCCI 125 MG/2 ML VIAL IV SCH ×2 (19:06→23:03)
[2019-02-03] MEDS: HYDROcodone/APAP 5-325MG 1 EACH TAB PO PRN (19:06)
[2019-02-03 19:16] LABS: ABG HCO3 46 mmol/L (21-25); ABG PO2 54 mmHg (83-108)
--- NOTE | 2019-02-03 19:16 | P.HPIM ---
History of Present Illness H&P Date: 02/03/19 Chief Complaint: Shortness of breath 58-year-old male with PMH of atrial fibrillation, CHF, COPD, diabetes mellitus, hypertension, sleep apnea presents the ED for shortness of breath. Patient is on 3.5 liters of home O2. Patient reports feeling short of breath that has been progressively getting worse over the last 2 weeks. He also reports increased swelling in his lower extremity. Patient has experienced dizziness while standing up over the last 2 days. He was seen by a visiting nurse today and was advised to call EMS. Patient reports chronic headaches when he doesn't have his home O2. He denies any nausea or vomiting. He denies any fever or chills. Patient reports cough productive of sputum which he cannot describe. Patient states that he has had increased swelling in his lower abdomen which is slow down his urination. He denies any bowel habit changes. CBC showed anemia with hemoglobin of 11.7. CMP shows chloride of 88, bicarbonate of 44, BUN of 50, creatinine of 1.82. Troponin was 0.088, EKG showing atrial fibrillation and incomplete LBBB. BNP was 984. Chest x-ray shows right lower lobe atelectasis or infiltrate. Patient is admitted for COPD exacerbation and treatment of pneumonia. Review of Systems All systems: negative Past Medical History Past Medical History: Atrial Fibrillation, Heart Failure, COPD, Diabetes Mellitus, GERD/Reflux, Hyperlipidemia, Hypertension, Neurologic Disorder, Osteoarthritis (OA), Sleep Apnea/CPAP/BIPAP Additional Past Medical History / Comment(s): NIDDM, bilateral lower leg and feet neuropathy, gout-travels everywhere per pt History of Any Multi-Drug Resistant Organisms: MRSA Date of last positivie culture/infection: 2005 or 2007 per pt-tx while pt lived in [place] MDRO Source:: Low back Past Surgical History: Adenoidectomy, Tonsillectomy Additional Past Surgical History / Comment(s): Pyloric stenosis when he was an , bilateral knee arthroscopies, 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 Past Anesthesia/Blood Transfusion Reactions: No Reported Reaction Past Psychological History: No Psychological Hx Reported, Anxiety Smoking Status: Former smoker Past Alcohol Use History: Rare Past Drug Use History: Marijuana - Past Family History Father Family Medical History: Coronary Artery Disease (CAD) (Father at age of 74 from CAD.), Diabetes Mellitus Additional Family Medical History / Comment(s): Father had heart disease. He at age 74 of possible a [place]-pt not sure. Mother Family Medical History: Congestive Heart Failure (CHF) (Mother at age of 72 from congestive heart failure she also has CAD and COPD), COPD, Coronary Artery Disease (CAD) Additional Family Medical History / Comment(s): Mother had heart problems. She at age 72 yrs. She had osteoporosis. Brother(s) Family Medical History: No Reported History (Patient has one brother no major medical problems) Sister(s) Family Medical History: Diabetes Mellitus (Patient has one sister with diabetes mellitus type 2) Daughter(s) Family Medical History: No Reported History (Patient has 2 daughters no major medical problems) Son(s) Family Medical History: No Reported History (Patient has 2 sons no major medical problems and also he has one stepson) Medications and Allergies Home Medications Medication Instructions Recorded Confirmed Type Allopurinol [Zyloprim] 100 mg PO BID 02/10/16 02/03/19 History Dabigatran [Pradaxa] 150 mg PO BID 02/10/16 02/03/19 History Fluticasone/Salmeterol [Advair 1 puff INHALATION RT-BID 02/10/16 02/03/19 History 250-50 Diskus] Furosemide [Lasix] 80 mg PO BID 02/10/16 02/03/19 History Omeprazole [PriLOSEC] 20 mg PO AC-BID 02/10/16 02/03/19 History Simvastatin [Zocor] 20 mg PO HS 02/10/16 02/03/19 History Digoxin [Lanoxin] 125 mcg PO DAILY 02/11/16 02/03/19 History glipiZIDE [Glucotrol] 5 mg PO DAILY 02/11/16 02/03/19 History Potassium Chloride [Klor-Con 20] 40 meq PO QAM #60 tab.er.prt 02/14/16 02/03/19 Rx Metoprolol Tartrate [Lopressor] 150 mg PO DAILY 04/10/18 02/03/19 History clonazePAM [KlonoPIN] 1 mg PO BID #60 tab 04/14/18 02/03/19 Rx Ammonium Lactate Lotion 1 applic TOPICAL BID PRN 02/03/19 02/03/19 History [Lac-Hydrin 12% Lotion] Aspirin [Adult Low Dose Aspirin EC] 81 mg PO DAILY 02/03/19 02/03/19 History Calcium Carbonate 500 mg PO DAILY 02/03/19 02/03/19 History Cholecalciferol (Vitamin D3) 2,000 unit PO DAILY 02/03/19 02/03/19 History [Vitamin D3] Docusate [Colace] 100 mg PO BID 02/03/19 02/03/19 History Metolazone [Zaroxolyn] 5 mg PO DAILY 02/03/19 02/03/19 History Miconazole Nitrate [Miconazole 1 applic TOPICAL DAILY PRN 02/03/19 02/03/19 History Nitrate 2%] Potassium Chloride ER [K-Dur 20] 20 meq PO HS 02/03/19 02/03/19 History Pregabalin [Lyrica] 75 mg PO BID 02/03/19 02/03/19 History traMADol HCL [Ultram] 50 mg PO TID PRN 02/03/19 02/03/19 History traZODone HCL 50 mg PO HS 02/03/19 02/03/19 History Allergies Allergy/AdvReac Type Severity Reaction Status Date / Time No Known Allergies Allergy Verified 02/03/19 15:15 Physical Exam Vitals: Vital Signs Temp Pulse Resp BP Pulse Ox 02/03/19 18:27 87 16 122/106 95 02/03/19 16:47 76 15 139/73 96 02/03/19 15:40 79 16 116/75 95 02/03/19 14:17 67 18 02/03/19 14:01 63 18 02/03/19 13:22 99.4 F 74 25 H 114/58 96 Intake and Output 02/03/19 02/03/19 02/03/19 06:59 14:59 22:59 Other: Weight 201.849 kg General: [non toxic], [no distress], [appears at stated age], [morbidly obese] Derm: [warm], [dry] Head: [atraumatic], [normocephalic], [symmetric] Eyes: [EOMI], [no lid lag], [anicteric sclera] Mouth: [no lip lesion], [mucus membranes moist] Cardiovascular: [S1S2 reg], [irregularly irregular], [positive posterior tibial pulse bilateral], Lungs: [CTA bilateral], [no rhonchi, no rales] , [no accessory muscle use], [obese] Abdominal: [soft], [ nontender to palpation], [no guarding], [no appreciable organomegaly] Ext: [no gross muscle atrophy], [no edema], [no contractures], [chronic lower extremity skin changes] Neuro: [ CN II-XI grossly intact], [no focal neuro deficits] Psych: [Alert], [oriented], [appropriate affect] Results CBC & Chem 7: 02/03/19 13:35 02/03/19 13:35 Labs: Abnormal Lab Results - Last 24 Hours (Table) 02/03/19 02/03/19 02/03/19 Range/Units 13:35 13:35 13:35 RBC 4.15 L (4.30-5.90) m/uL Hgb 11.7 L (13.0-17.5) gm/dL Hct 36.0 L (39.0-53.0) % RDW 16.0 H (11.5-15.5) % APTT 35.6 H (22.0-30.0) sec Chloride 88 L (98-107) mmol/L Carbon Dioxide 44 H* (22-30) mmol/L BUN 50 H (9-20) mg/dL Creatinine 1.82 H (0.66-1.25) mg/dL Troponin I (0.000-0.034) ng/mL Albumin 3.3 L (3.5-5.0) g/dL 02/03/19 Range/Units 13:35 RBC (4.30-5.90) m/uL Hgb (13.0-17.5) gm/dL Hct (39.0-53.0) % RDW (11.5-15.5) % APTT (22.0-30.0) sec Chloride (98-107) mmol/L Carbon Dioxide (22-30) mmol/L BUN (9-20) mg/dL Creatinine (0.66-1.25) mg/dL Troponin I 0.088 H* (0.000-0.034) ng/mL Albumin (3.5-5.0) g/dL Thrombosis Risk Factor Assmnt - Choose All That Apply Any of the Below Risk Factors Present?: Yes Each Factor Represents 1 point: Abnormal pulmonary function (COPD), Age 41-60 years, Obesity (BMI >25) Thrombosis Risk Factor Assessment Total Risk Factor Score: 3 Thrombosis Risk Factor Assessment Level: Moderate Risk Assessment and Plan Assessment: Assessment and Plan 0. Acute hypoxic respiratory failure 1. COPD exacerbation 2. Community acquired pneumonia 3. CHF exacerbation 4. Atrial fibrillation 5. Diabetes mellitus 6. Troponin elevation 7. Acute kidney injury on chronic kidney disease 0. Likely secondary to combination of CHF and COPD exacerbation, treated with pneumonia. Thought with COPD medications. Continue Lasix IV. O2 per nasal cannula to maintain O2 saturation greater than 92%. Bicarbonate severely elevated at 44., follow ABG to check for compensation. 1. Continue DuoNeb 4 times a day scheduled and as needed for shortness of breath and wheezing. Continue Solu-Medrol 60 g IV every 6 hours. Management as above. Follow pulmonology consultation. 2. As seen on chest x-ray. Patient is afebrile with no leukocytosis. Start levofloxacin by mouth. Management as above. 3. Start Lasix 40 g IV twice a day. Continue beta shell. Strict intake and output take. Daily weights. Follow-up echocardiogram results. 4. Continue metoprolol for rate control. Anticoagulation with Pradaxa. Keep potassium greater than 4 magnesium greater than 2. Telemetry monitoring. Follow-up echocardiogram. 5. [id number] glucose 99. Regular Accu-Cheks. Hypoglycemic precautions. Insulin sliding scale. 6. Troponin 0.088 with EKG showing atrial fibrillation. Low concerns for ACS. Trend 2 troponin/EKG to rule out ACS. Follow-up echocardiogram results. Telemetry monitoring. 7. BUN 50, creatinine 1.82. Avoid IVF as patient may need diuresing. Daily BMP. Patient admitted for acute hypoxic respiratory failure. Found to be in COPD and CHF exacerbation along with community acquired pneumonia. Pulmonology is on consult. Pending echocardiogram. Patient states that he would like to be full code. He names Kevon his brother decision-maker in the case that he can make decisions for himself.
[2019-02-03 19:17] LABS: ABG Oxygen Saturation 91.1 % (94-97)
[2019-02-03 19:26] LABS: Anisocytosis Slight; Basophils % (A) 0 %; Eosinophils # (A) 0.1 k/uL (0-0.7); Eosinophils % (A) 1 %; HCT 37.8 % (39.0-53.0); HGB 12.3 gm/dL (13.0-17.5); Hypochromasia Slight; Lymphocytes # (A) 0.6 k/uL (1.0-4.8); Lymphocytes % (A) 6 %; MCH 28.6 pg (25.0-35.0); MCHC 32.5 g/dL (31.0-37.0); MCV 87.9 fL (80.0-100.0); Mean Platelet Volume 9.2; Monocytes # (A) 0.3 k/uL (0-1.0); Monocytes % (A) 3 %; Neutrophils # (A) 8.6 k/uL (1.3-7.7); Neutrophils % (A) 90 %; Platelet Count 290 k/uL (150-450); WBC 9.6 k/uL (3.8-10.6)
[2019-02-03 19:42] LABS: Calcium 9.4 mg/dL (8.4-10.2); Potassium 4.2 mmol/L (3.5-5.1)
[2019-02-03 20:44] VITALS: BMI 56.8
[2019-02-03 20:55] LABS: Glucose,Whole Blood 222 mg/dL (75-99)
[2019-02-03] MEDS ORDERED: FUROSEMIDE 10 MG/ML 4 ML VIAL IV SCH (21:00)
[2019-02-03] MEDS: DABIGATRAN 150 MG CAP PO SCH (21:26)
[2019-02-03] MEDS: ALLOPURINOL 100 MG TAB PO SCH (21:26)
[2019-02-03] MEDS: DOCUSATE 100 MG CAP PO SCH (21:26)
[2019-02-03] MEDS: ATORVASTATIN 10 MG TAB PO SCH (21:26)
[2019-02-03] MEDS: INSULIN ASPART (NovoLOG) 100 UNIT/ML VIAL SQ SCH (21:26)
[2019-02-03] MEDS: PREGABALIN 75 MG CAP PO SCH (21:26)
[2019-02-03] MEDS: clonazePAM 1 MG TAB PO SCH (21:26)
[2019-02-03] MEDS: traZODone HCL 50 MG TAB PO SCH (21:27)
[2019-02-03] MEDS ORDERED: PANTOPRAZOLE 40 MG TABLET PO STA (21:55)
[2019-02-03] MEDS: SODIUM CHLORIDE 0.9% 250 ML IV SCH ×3 (22:11→22:58)
[2019-02-04] MEDS: SODIUM CHLORIDE 0.9% 250 ML IV SCH ×4 (04:18→07:41)
[2019-02-04 06:05] LABS: Glucose,Whole Blood 225 mg/dL (75-99)
[2019-02-04] MEDS: INSULIN ASPART (NovoLOG) 100 UNIT/ML VIAL SQ SCH ×4 (06:32→21:39)
[2019-02-04] MEDS: methylPREDNISolone SOD SUCCI 125 MG/2 ML VIAL IV SCH ×4 (06:32→22:47)
[2019-02-04 07:26] LABS: Anisocytosis Slight; Basophils % (A) 0 %; Eosinophils % (A) 0 %; HCT 36.5 % (39.0-53.0); HGB 12.4 gm/dL (13.0-17.5); Hypochromasia Slight; Lymphocytes # (A) 0.7 k/uL (1.0-4.8); Lymphocytes % (A) 8 %; MCH 29.2 pg (25.0-35.0); MCHC 33.8 g/dL (31.0-37.0); MCV 86.4 fL (80.0-100.0); Mean Platelet Volume 9.7; Monocytes # (A) 0.4 k/uL (0-1.0); Monocytes % (A) 5 %; Neutrophils # (A) 7.4 k/uL (1.3-7.7); Neutrophils % (A) 86 %; Platelet Count 262 k/uL (150-450); RBC 4.23 m/uL (4.30-5.90); RDW 16.7 % (11.5-15.5); WBC 8.7 k/uL (3.8-10.6)
[2019-02-04 07:55] LABS: Albumin 3.4 g/dL (3.5-5.0); Calcium 9.5 mg/dL (8.4-10.2); Potassium 4.1 mmol/L (3.5-5.1); Total Bilirubin 0.7 mg/dL (0.2-1.3); Total Protein 6.6 g/dL (6.3-8.2)
[2019-02-04] MEDS ORDERED: DIGOXIN 125 MCG TAB PO SCH (09:00)
[2019-02-04] MEDS: IPRATROPIUM-ALBUTEROL 3 ML NEB INHALATION SCH ×4 (09:02→21:30)
[2019-02-04] MEDS: LEVOFLOXACIN 500 MG TAB PO SCH (09:02)
[2019-02-04] MEDS: PREGABALIN 75 MG CAP PO SCH ×2 (09:03→21:39)
[2019-02-04] MEDS: ASPIRIN 81 MG PO SCH (09:03)
[2019-02-04] MEDS: DOCUSATE 100 MG CAP PO SCH ×2 (09:03→21:39)
[2019-02-04] MEDS: ALLOPURINOL 100 MG TAB PO SCH ×2 (09:03→21:39)
[2019-02-04] MEDS: METOPROLOL TARTRATE 50 MG TAB PO SCH (09:03)
[2019-02-04] MEDS: clonazePAM 1 MG TAB PO SCH ×2 (09:03→22:46)
[2019-02-04] MEDS: DABIGATRAN 150 MG CAP PO SCH ×2 (09:03→21:39)
[2019-02-04] MEDS: PANTOPRAZOLE 40 MG TABLET PO SCH (09:03)
[2019-02-04 11:32] LABS: Glucose,Whole Blood 169 mg/dL (75-99)
[2019-02-04] MEDS: HYDROcodone/APAP 5-325MG 1 EACH TAB PO PRN ×3 (11:47→21:22)
--- NOTE | 2019-02-04 12:47 | P.PN ---
Subjective Progress Note Date: 02/04/19 Principal diagnosis: COPD exacerbation, CHF exacerbation, community acquired pneumonia Patient was seen and examined. No acute events overnight. Patient reports great improvement in his breathing this morning. States that he is 50% back to baseline. ABG performed yesterday showing CO2 retention, alkalotic pH with high bicarbonate. Started on BiPAP overnight. He denies any chest pain or palpitations. No nausea or vomiting. No fever or chills. Tolerating diet well. Complains of weird sensation in his right nostril. Objective - Vital Signs Vital signs: Vital Signs Temp 98.4 F 02/04/19 12:00 Pulse 68 02/04/19 12:26 Resp 18 02/04/19 12:00 BP 184/77 02/04/19 12:00 Pulse Ox 93 L 02/04/19 12:00 Intake & Output 02/03/19 02/04/19 02/04/19 18:59 06:59 18:59 Intake Total 1040 240 Balance 1040 240 Weight 201.849 kg 190.2 kg 190.2 kg Intake: Oral 240 Other 1040 Other: # Voids 2 - Exam General: [non toxic], [no distress], [appears at stated age], [morbidly obese] Derm: [warm], [dry] Head: [atraumatic], [normocephalic], [symmetric] Eyes: [EOMI], [no lid lag], [anicteric sclera] Mouth: [no lip lesion], [mucus membranes moist] Cardiovascular: [S1S2 reg], [irregularly irregular], [positive posterior tibial pulse bilateral], Lungs: [Decreased breath sounds bilaterally with end expiratory wheezing], [no rhonchi, no rales] , [no accessory muscle use], [obese] Abdominal: [soft], [ nontender to palpation], [no guarding], [no appreciable organomegaly] Ext: [no gross muscle atrophy], [no edema], [no contractures], [chronic lower extremity skin changes] Neuro: [no focal neuro deficits] Psych: [Alert], [oriented], [appropriate affect] - Labs CBC & Chem 7: 02/04/19 06:30 02/04/19 06:30 Labs: Abnormal Lab Results - Last 24 Hours (Table) 04/03/1902/03/19 02/03/19 Range/Units 13:35 13:35 13:35 RBC 4.15 L (4.30-5.90) m/uL Hgb 11.7 L (13.0-17.5) gm/dL Hct 36.0 L (39.0-53.0) % RDW 16.0 H (11.5-15.5) % Neutrophils # (1.3-7.7) k/uL Lymphocytes # (1.0-4.8) k/uL APTT 35.6 H (22.0-30.0) sec ABG pH (7.35-7.45) ABG pCO2 (35-45) mmHg ABG pO2 (83-108) mmHg ABG HCO3 (21-25) mmol/L ABG Total CO2 (19-24) mmol/L ABG O2 Saturation (94-97) % Chloride 88 L (98-107) mmol/L Carbon Dioxide 44 H* (22-30) mmol/L BUN 50 H (9-20) mg/dL Creatinine 1.82 H (0.66-1.25) mg/dL Glucose (74-99) mg/dL POC Glucose (mg/dL) (75-99) mg/dL Troponin I (0.000-0.034) ng/mL Albumin 3.3 L (3.5-5.0) g/dL 02/03/19 02/03/19 02/03/19 Range/Units 13:35 19:05 19:11 RBC (4.30-5.90) m/uL Hgb 12.3 L (13.0-17.5) gm/dL Hct 37.8 L (39.0-53.0) % RDW 16.0 H (11.5-15.5) % Neutrophils # 8.6 H (1.3-7.7) k/uL Lymphocytes # 0.6 L (1.0-4.8) k/uL APTT (22.0-30.0) sec ABG pH 7.47 H (7.35-7.45) ABG pCO2 63 H (35-45) mmHg ABG pO2 54 L* (83-108) mmHg ABG HCO3 46 H* (21-25) mmol/L ABG Total CO2 47 H (19-24) mmol/L ABG O2 Saturation 91.1 L (94-97) % Chloride (98-107) mmol/L Carbon Dioxide (22-30) mmol/L BUN (9-20) mg/dL Creatinine (0.66-1.25) mg/dL Glucose (74-99) mg/dL POC Glucose (mg/dL) (75-99) mg/dL Troponin I 0.088 H* (0.000-0.034) ng/mL Albumin (3.5-5.0) g/dL 02/03/19 02/03/19 02/03/19 Range/Units 19:11 19:11 20:52 RBC (4.30-5.90) m/uL Hgb (13.0-17.5) gm/dL Hct (39.0-53.0) % RDW (11.5-15.5) % Neutrophils # (1.3-7.7) k/uL Lymphocytes # (1.0-4.8) k/uL APTT (22.0-30.0) sec ABG pH (7.35-7.45) ABG pCO2 (35-45) mmHg ABG pO2 (83-108) mmHg ABG HCO3 (21-25) mmol/L ABG Total CO2 (19-24) mmol/L ABG O2 Saturation (94-97) % Chloride 88 L (98-107) mmol/L Carbon Dioxide 41 H* (22-30) mmol/L BUN 53 H (9-20) mg/dL Creatinine 1.58 H (0.66-1.25) mg/dL Glucose 244 H (74-99) mg/dL POC Glucose (mg/dL) 222 H (75-99) mg/dL Troponin I 0.082 H* (0.000-0.034) ng/mL Albumin (3.5-5.0) g/dL 02/04/19 02/04/19 02/04/19 Range/Units 01:48 06:01 06:30 RBC 4.23 L (4.30-5.90) m/uL Hgb 12.4 L (13.0-17.5) gm/dL Hct 36.5 L (39.0-53.0) % RDW 16.7 H (11.5-15.5) % Neutrophils # (1.3-7.7) k/uL Lymphocytes # 0.7 L (1.0-4.8) k/uL APTT (22.0-30.0) sec ABG pH (7.35-7.45) ABG pCO2 (35-45) mmHg ABG pO2 (83-108) mmHg ABG HCO3 (21-25) mmol/L ABG Total CO2 (19-24) mmol/L ABG O2 Saturation (94-97) % Chloride (98-107) mmol/L Carbon Dioxide (22-30) mmol/L BUN (9-20) mg/dL Creatinine (0.66-1.25) mg/dL Glucose (74-99) mg/dL POC Glucose (mg/dL) 225 H (75-99) mg/dL Troponin I 0.082 H* (0.000-0.034) ng/mL Albumin (3.5-5.0) g/dL 02/04/19 02/04/19 Range/Units 06:30 11:29 RBC (4.30-5.90) m/uL Hgb (13.0-17.5) gm/dL Hct (39.0-53.0) % RDW (11.5-15.5) % Neutrophils # (1.3-7.7) k/uL Lymphocytes # (1.0-4.8) k/uL APTT (22.0-30.0) sec ABG pH (7.35-7.45) ABG pCO2 (35-45) mmHg ABG pO2 (83-108) mmHg ABG HCO3 (21-25) mmol/L ABG Total CO2 (19-24) mmol/L ABG O2 Saturation (94-97) % Chloride 88 L (98-107) mmol/L Carbon Dioxide 39 H (22-30) mmol/L BUN 55 H (9-20) mg/dL Creatinine 1.71 H (0.66-1.25) mg/dL Glucose 205 H (74-99) mg/dL POC Glucose (mg/dL) 169 H (75-99) mg/dL Troponin I (0.000-0.034) ng/mL Albumin 3.4 L (3.5-5.0) g/dL Assessment and Plan Assessment: Assessment and Plan 0. Acute hypoxic respiratory failure 1. Metabolic alkalosis with respiratory acidosis 2. COPD exacerbation 3. Community acquired pneumonia 4. CHF exacerbation 5. Atrial fibrillation 6. Diabetes mellitus 7. Troponin elevation 8. Acute kidney injury on chronic kidney disease 0. Likely secondary to combination of CHF and COPD exacerbation, treated with pneumonia. Optimize COPD medications. ABG and BMP pointing towards contraction alkalosis, will DC Lasix. O2 per nasal cannula to maintain O2 saturation greater than 92%. BiPAP as needed. Follow pulmonology consultation 1. PH of 7.47, pCO2 of 63, bicarbonate of 41. Likely secondary to COPD exacerbation and the use of diuretics in the outpatient setting. DC Lasix and follow daily BMP. BiPAP as needed to wash out CO2. 2. Continue DuoNeb 4 times a day scheduled and as needed for shortness of breath and wheezing. Continue Solu-Medrol 60 g IV every 6 hours. Management as above. Follow pulmonology consultation. 3. As seen on chest x-ray. Patient is afebrile with no leukocytosis. Start levofloxacin by mouth. Management as above. 4. Continue beta shell. Strict intake and output take. Daily weights. Follow-up echocardiogram results. 5. Continue metoprolol for rate control. Anticoagulation with Pradaxa. Keep potassium greater than 4 magnesium greater than 2. Telemetry monitoring. Follow-up echocardiogram. 6. [id number] glucose 169. Regular Accu-Cheks. Hypoglycemic precautions. Insulin sliding scale. 7. Troponin 0.088, 0.082, 0.082 with EKG showing atrial fibrillation. ACS ruled out. Follow-up echocardiogram results. Telemetry monitoring. 8. BUN 50-53, creatinine 1.82-1.71. Avoid nephrotoxins. Encourage hydration. Mouth. Daily BMP. Patient admitted for acute hypoxic respiratory failure. Found to be in COPD and CHF exacerbation along with community acquired pneumonia. Pulmonology is on consult. Pending echocardiogram. Patient is pending clinical improvement.
--- NOTE | 2019-02-04 14:46 | ECHOF ---
Referral Reason:SOB MEASUREMENTS -------- HEIGHT: 182.9 cm WEIGHT: 190.1 kg BP: 119/68 RVIDd: 3.9 cm (< 3.3) IVSd: 1.6 cm (0.6 - 1.1) LVIDd: 4.3 cm (3.9 - 5.3) LVPWd: 1.6 cm (0.6 - 1.1) IVSs: 2.0 cm LVIDs: 2.8 cm LVPWs: 2.3 cm LA Diam: 4.9 cm (2.7 - 3.8) LAESV Index (A-L): 54.83 ml/m Ao Diam: 3.8 cm (2.0 - 3.7) AV Cusp: 2.8 cm (1.5 - 2.6) MV EXCURSION: 20.282 mm (> 18.000) MV EF SLOPE: 114 mm/s (70 - 150) EPSS: 0.3 cm RAP: 5.00 mmHg RVSP: 46.83 mmHg FINDINGS -------- Atrial fibrillation. This was a technically adequate study. The left ventricular size is normal. There is moderate concentric left ventricular hypertrophy. O verall left ventricular systolic function is normal with, an EF between 60 - 65 %. Basal inferior L V wall motion is hypokinetic. Basal inferoseptal LV wall motion is hypokinetic. The right ventricle is moderately enlarged. LA is severely dilated >40 ml/m2 The right atrium is normal in size. There is mild aortic valve sclerosis. The mitral valve leaflets are mildly thickened. Mild mitral annular calcification present. There is trace mitral regurgitation. [id number] tricuspid regurgitation present. There is moderate pulmonary hypertension. The r ight ventricular systolic pressure, as measured by Doppler, is 46.83mmHg. Trace/mild (physiologic) pulmonic regurgitation. The aortic root is dilated measuring 3.8cm. Normal inferior vena cava with normal inspiratory collapse consistent with estimated right atrial pre ssure of 5 mmHg. The inferior vena cava is severely dilated. There is no pericardial effusion. CONCLUSIONS -------- 1. Atrial fibrillation. 2. This was a technically adequate study. 3. The left ventricular size is normal. 4. There is moderate concentric left ventricular hypertrophy. 5. Overall left ventricular systolic function is normal with, an EF between 60 - 65 %. 6. Basal inferior LV wall motion is hypokinetic. 7. Basal inferoseptal LV wall motion is hypokinetic. 8. The right ventricle is moderately enlarged. 9. LA is severely dilated >40 ml/m2 10. The right atrium is normal in size. 11. There is mild aortic valve sclerosis. 12. The mitral valve leaflets are mildly thickened. 13. Mild mitral annular calcification present. 14. There is trace mitral regurgitation. 15. [id number] tricuspid regurgitation present. 16. There is moderate pulmonary hypertension. 17. The right ventricular systolic pressure, as measured by Doppler, is 46.83mmHg. 18. Trace/mild (physiologic) pulmonic regurgitation. 19. The aortic root is dilated measuring 3.8cm. 20. Normal inferior vena cava with normal inspiratory collapse consistent with estimated right atrial pressure of 5 mmHg. 21. The inferior vena cava is severely dilated. 22. There is no pericardial effusion. [employer]PER[employer] WORKER: Alix Hayes RDCS
--- NOTE | 2019-02-04 14:47 | CONS ---
CONSULTATION PULMONARY CRITICAL CARE CONSULT: DATE OF SERVICE: 02/04/2019 This is a 58-year-old male who presents via EMS to the emergency room complaining of shortness of breath and difficulty breathing. The patient apparently uses oxygen at home, but became very short of breath. He does have a history of obesity, Pickwickian syndrome, CHF, and COPD. Apparently his home care nurse did evaluate him today. Apparently had been having worsening shortness of breath as well as fluid retention and increased lower extremity edema. He did not have any fever or chills or chest discomfort. He did have a mild cough which is mostly nonproductive. He apparently was evaluated in the emergency room and was admitted with a diagnosis of COPD exacerbation, elevated troponins, and possible right heart failure. His chest x-ray was not really impressive but did show some infiltrate and/or atelectasis at the right lung base. It did show evidence also of large pulmonary artery suggestive of pulmonary hypertension. I suspect he does have cor pulmonale. He apparently did see my partner back in April 2018 postoperatively. That was for postop management. The patient is very sleepy and lethargic. Did not appear to be any distress. He is on a couple L of O2. Denies any additional complaints versus what was previous said about his present presentation to the emergency department. HOME MEDICATIONS: Include allopurinol, Pradaxa, Advair, Lasix, Prilosec, Zocor, Lanoxin, Glucotrol, Lopressor, Lac-Hydrin lotion, aspirin, calcium carbonate, vitamin D3, Colace, Zaroxolyn, miconazole nitrate topical, potassium chloride, Lyrica, Ultram, and Klonopin. ALLERGIES: Denied. MEDICAL HISTORY: Atrial fibrillation, CHF, COPD, diabetes, GERD, hyperlipidemia, hypertension, DJD, sleep apnea syndrome and possible Pickwickian syndrome. The patient also suffers from lower extremity neuropathy as well as gout. He has a previous history of MRSA infection. SURGICAL HISTORY: Includes adenoidectomy and tonsillectomy. He also apparently had pyloric stenosis as an . He has had bilateral knee arthroscopies and esophageal surgery. SOCIAL HISTORY: Positive for previous tobacco use. He drinks alcohol rarely but does smoke marijuana. FAMILY HISTORY: Positive for CAD, diabetes, AR, congestive heart failure, COPD, CAD, and osteoporosis. The rest of the family history is delineated in the H and P done by the ER physician. OCCUPATION HISTORY: Noncontributory. REVIEW OF SYSTEMS: CONSTITUTIONAL: Weight gain. NEUROLOGIC: Negative. HEENT: Negative. CARDIOVASCULAR: Negative. PULMONARY: Shortness of breath, cough, nonproductive. GI: Negative. : Negative. RHEUMATOLOGIC: Negative. IMMUNOLOGIC: Negative. ENDOCRINOLOGIC: Negative. DERMATOLOGIC: Negative. Current vital signs are reviewed. Temperature is 98.4, heart rate 64, respiratory rate 18, blood pressure 184/77 mean 112, 4 L saturation 93% to 94%. He is very lethargic and sleepy but does arouse. Does not appear to be any distress. He is lying nearly flat in bed. HEENT examination is grossly unremarkable. Nasal O2 noted. Neck is supple. Full range of motion. No adenopathy or thyromegaly. Cardiovascular examination reveals regular rhythm and rate. Heart rate 68. S1, S2 normal. Heart sounds are distant. Lungs reveal mostly clear, but diminished breath sounds. No wheezes, rhonchi, or crackles. Abdomen is obese. Bowel sounds are heard. Extremities reveal significant edema. There is chronic venostasis changes and pitting. There is evidence of hyperpigmentation. Skin is without rash otherwise. Neurologic examination is brief but nonfocal. LAB: Values are reviewed. White count 8.7, hemoglobin 12.4, hematocrit 36.5, platelet count 262,000. Sodium 138, potassium 4.1, chloride 98, CO2 of 39. BUN and creatinine were 55 and 1.71. Anion gap is 11, glucose is 205 and his troponin was 0.082. Chest x-ray shows evidence of some large pulmonary arteries consistent with pulmonary hypertension and some atelectasis and/or infiltrates at the right base. There is small bilateral effusions. Medications are reviewed. ASSESSMENT: 1. Shortness of breath, likely multifactorial in part related to underlying chronic obstructive pulmonary disease exacerbation, mild fluid overload, and cor pulmonale with pulmonary hypertension. 2. Obesity. 3. Sleep apnea syndrome, maintained on CPAP. 4. Gout. 5. Hyperlipidemia. 6. Atrial fibrillation. 7. History of congestive heart failure. 8. Diabetes mellitus. 9. Gastroesophageal reflux disease. 10.History of hypertension. 11.Degenerative joint disease. 12.Neuropathy. PLAN: Patient's medications are reviewed. His COPD exacerbation is relatively mild. He has other factors causing him to be short of breath including obesity, probable Pickwickian syndrome with hypoventilation, mild fluid overload and cor pulmonale with pulmonary hypertension. Additional recommendations and suggestions are forthcoming. Will continue to follow. Medications are reviewed. Labs are reviewed. Problem list is reviewed. Adjustments are made to his medication. MMODL / IJN: [id number] /
[2019-02-04 16:34] LABS: Glucose,Whole Blood 208 mg/dL (75-99)
[2019-02-04 20:57] LABS: Glucose,Whole Blood 251 mg/dL (75-99)
[2019-02-04] MEDS: SYMBICORT 160-4.5 MCG INHALER INHALATION SCH (21:30)
[2019-02-04 21:33] LABS: Glucose,Whole Blood 210 mg/dL (75-99)
[2019-02-04] MEDS: ATORVASTATIN 10 MG TAB PO SCH (21:39)
[2019-02-04] MEDS: traZODone HCL 50 MG TAB PO SCH (22:46)
[2019-02-05] MEDS: PANTOPRAZOLE 40 MG TABLET PO SCH (05:34)
[2019-02-05] MEDS: HYDROcodone/APAP 5-325MG 1 EACH TAB PO PRN (05:34)
[2019-02-05] MEDS: methylPREDNISolone SOD SUCCI 125 MG/2 ML VIAL IV SCH (05:35)
[2019-02-05 05:42] LABS: Glucose,Whole Blood 231 mg/dL (75-99)
[2019-02-05] MEDS: INSULIN ASPART (NovoLOG) 100 UNIT/ML VIAL SQ SCH ×2 (05:43→12:28)
[2019-02-05] MEDS: SYMBICORT 160-4.5 MCG INHALER INHALATION SCH (08:08)
[2019-02-05] MEDS: IPRATROPIUM-ALBUTEROL 3 ML NEB INHALATION SCH ×2 (08:08→11:58)
[2019-02-05] MEDS: DOCUSATE 100 MG CAP PO SCH (08:51)
[2019-02-05] MEDS: ALLOPURINOL 100 MG TAB PO SCH (08:51)
[2019-02-05] MEDS: LEVOFLOXACIN 500 MG TAB PO SCH (08:51)
[2019-02-05] MEDS: ASPIRIN 81 MG PO SCH (08:51)
[2019-02-05] MEDS: DABIGATRAN 150 MG CAP PO SCH (08:52)
[2019-02-05] MEDS: METOPROLOL TARTRATE 50 MG TAB PO SCH (08:52)
[2019-02-05] MEDS: clonazePAM 1 MG TAB PO SCH (08:52)
[2019-02-05] MEDS: PREGABALIN 75 MG CAP PO SCH (08:52)
[2019-02-05 10:11] VITALS: PULSE 70; RESP 16
[2019-02-05 11:33] LABS: Glucose,Whole Blood 165 mg/dL (75-99)
--- NOTE | 2019-02-05 12:19 | P.CRDCN ---
History of Present Illness Consult date: 02/05/19 History of present illness: IMPRESSION / ASSESSMENT: Wall motion abnormality on echocardiogram noted Paroxysmal atrial fibrillation PLAN: Plan for medical management only Continue Lopressor 150 mg daily, Pradaxa 150 mg twice daily Continue aspirin 81 mg daily, Lipitor 10 mg at bedtime Follow-up with Dr. Valladares as an outpatient HPI This is a 58-year-old male patient with past medical history of paroxysmal atrial fibrillation, COPD, chronic diastolic heart failure, morbid obesity, diabetes mellitus type 2, hypertension, hyperlipidemia, obstructive sleep apnea patient has been admitted to the hospital and treated for COPD exacerbation. Echocardiogram revealed wall motion abnormality consult was requested. Patient is also known to have patient was noted to have pauses. We will plan to continue his current home medications. patient states his shortness of breath is at his baseline. He states he occasionally has chest pain under his left breast but is only slight and goes away. Lower extremity edema is improved. ROS: No fever chills or rigors, no cough, phlegm or expectoration, no nausea, vomiting or diarrhea, no hematuria, dysuria, no musculoskeletal complaints, no strokes or seizures, venous stasis ulcer right leg EXAMINATION: Gen: This is a morbidly obese 58-year-old male. He is resting in bed appears to be comfortable. HEENT: Head is atraumatic, normocephalic. Pupils equal, round. Sclerae is anicteric. NECK: Supple. No JVD. No lymphadenopathy. No thyromegaly. LUNGS: Clear to auscultation. No wheezes or rhonchi. No intercostal retractions. HEART: Regular rate and rhythm. No murmur. ABDOMEN: Soft. Bowel sounds are present. No masses. No tenderness. EXTREMITIES: No right pedal edema. Trace left pedal edema. NEUROLOGICAL: Patient is awake, alert and oriented x3. Cranial nerves 2 through 12 are grossly intact. Nurse practitioner note has been reviewed, I agree with documented findings and plan of care. Patient was seen and examined. Past Medical History Past Medical History: Atrial Fibrillation, Heart Failure, COPD, Diabetes Mellitus, GERD/Reflux, Hyperlipidemia, Hypertension, Neurologic Disorder, Osteoarthritis (OA), Sleep Apnea/CPAP/BIPAP Additional Past Medical History / Comment(s): NIDDM, bilateral lower leg and f eet neuropathy, gout-travels everywhere per pt History of Any Multi-Drug Resistant Organisms: MRSA Date of last positivie culture/infection: 2005 or 2007 per pt-tx while pt lived in [place] MDRO Source:: Low back Past Surgical History: Adenoidectomy, Tonsillectomy Additional Past Surgical History / Comment(s): Pyloric stenosis when he was an , bilateral knee arthroscopies, 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 Past Anesthesia/Blood Transfusion Reactions: No Reported Reaction Past Psychological History: No Psychological Hx Reported, Anxiety Additional Psychological History / Comment(s): Pt resides alone. He uses a cane at times but uses a electric wheelchair more often. He drives. Smoking Status: Former smoker Past Alcohol Use History: Rare Additional Past Alcohol Use History / Comment(s): Pt started smoking in 1971 and quit in 1999. He was a pack and a half to two ppd smoker. Past Drug Use History: Marijuana - Past Family History Father Family Medical History: Coronary Artery Disease (CAD), Diabetes Mellitus Additional Family Medical History / Comment(s): Father had heart disease. He at age 74 of possible a [place]-pt not sure. Mother Family Medical History: Congestive Heart Failure (CHF), COPD, Coronary Artery Disease (CAD) Additional Family Medical History / Comment(s): Mother had heart problems. She at age 72 yrs. She had osteoporosis. Brother(s) Family Medical History: No Reported History Sister(s) Family Medical History: Diabetes Mellitus Daughter(s) Family Medical History: No Reported History Son(s) Family Medical History: No Reported History Medications and Allergies Home Medications Medication Instructions Recorded Confirmed Type Allopurinol [Zyloprim] 100 mg PO BID 02/10/16 02/03/19 History Dabigatran [Pradaxa] 150 mg PO BID 02/10/16 02/03/19 History Fluticasone/Salmeterol [Advair 1 puff INHALATION RT-BID 02/10/16 02/03/19 History 250-50 Diskus] Furosemide [Lasix] 80 mg PO BID 02/10/16 02/03/19 History Omeprazole [PriLOSEC] 20 mg PO AC-BID 02/10/16 02/03/19 History Simvastatin [Zocor] 20 mg PO HS 02/10/16 02/03/19 History Digoxin [Lanoxin] 125 mcg PO DAILY 02/11/16 02/03/19 History glipiZIDE [Glucotrol] 5 mg PO DAILY 02/11/16 02/03/19 History Potassium Chloride [Klor-Con 20] 40 meq PO QAM #60 tab.er.prt 02/14/16 02/03/19 Rx Metoprolol Tartrate [Lopressor] 150 mg PO DAILY 04/10/18 02/03/19 History clonazePAM [KlonoPIN] 1 mg PO BID #60 tab 04/14/18 02/03/19 Rx Ammonium Lactate Lotion 1 applic TOPICAL BID PRN 02/03/19 02/03/19 History [Lac-Hydrin 12% Lotion] Aspirin [Adult Low Dose Aspirin EC] 81 mg PO DAILY 02/03/19 02/03/19 History Calcium Carbonate 500 mg PO DAILY 02/03/19 02/03/19 History Cholecalciferol (Vitamin D3) 2,000 unit PO DAILY 02/03/19 02/03/19 History [Vitamin D3] Docusate [Colace] 100 mg PO BID 02/03/19 02/03/19 History Metolazone [Zaroxolyn] 5 mg PO DAILY 02/03/19 02/03/19 History Miconazole Nitrate [Miconazole 1 applic TOPICAL DAILY PRN 02/03/19 02/03/19 History Nitrate 2%] Potassium Chloride ER [K-Dur 20] 20 meq PO HS 02/03/19 02/03/19 History Pregabalin [Lyrica] 75 mg PO BID 02/03/19 02/03/19 History traMADol HCL [Ultram] 50 mg PO TID PRN 02/03/19 02/03/19 History traZODone HCL 50 mg PO HS 02/03/19 02/03/19 History Allergies Allergy/AdvReac Type Severity Reaction Status Date / Time No Known Allergies Allergy Verified 02/03/19 15:15 Physical Exam Vitals: Vital Signs Temp Pulse Pulse Resp BP BP Pulse Ox 02/05/19 08:20 86 02/05/19 08:08 87 02/05/19 08:00 97.6 F 70 16 113/70 94 L 02/05/19 03:29 98.3 F 83 20 135/73 93 L 02/04/19 23:40 98.3 F 83 22 135/73 93 L 02/04/19 21:42 78 02/04/19 21:31 78 02/04/19 20:00 20 02/04/19 19:15 97.9 F 62 20 121/73 94 L 02/04/19 16:14 82 02/04/19 16:06 82 02/04/19 15:30 98.6 F 83 18 136/73 95 02/04/19 12:39 72 02/04/19 12:26 68 02/04/19 12:00 98.4 F 64 18 184/77 93 L Intake and Output 02/04/19 02/05/19 02/05/19 22:59 06:59 14:59 Intake Total 480 240 Balance 480 240 Intake: Oral 480 240 Other: Voiding Method Toilet Results 02/04/19 06:30 02/04/19 06:30 Current Medications Generic Name Dose Route Start Last Admin Trade Name Freq PRN Reason Stop Dose Admin Hydrocodone Bitart/Acetaminophen 1 each 02/03/19 18:57 02/05/19 05:34 [place] 5-325 PO 1 each Q4HR PRN Administration Moderate Pain Albuterol/Ipratropium 3 ml 02/03/19 15:41 Duoneb 0.5 Mg-3 Mg/3 Ml Soln INHALATION RT-Q4H PRN Shortness Of Breath Or Wheezing Albuterol/Ipratropium 3 ml 02/03/19 16:00 02/05/19 08:08 Duoneb 0.5 Mg-3 Mg/3 Ml Soln INHALATION 3 ml RT-QID NIKA Administration Allopurinol 100 mg 02/03/19 21:00 02/05/19 08:51 Zyloprim PO 100 mg BID NIKA Administration Aspirin 81 mg 02/04/19 09:00 02/05/19 08:51 Aspirin PO 81 mg DAILY NIKA Administration Atorvastatin Calcium 10 mg 02/03/19 21:00 02/04/19 21:39 Lipitor PO 10 mg HS NIKA Administration Budesonide/Formoterol Fumarate 2 puff 02/04/19 20:00 02/05/19 08:08 Symbicort 160-4.5 Mcg Inhaler INHALATION 2 puff RT-BID NIKA Administration Clonazepam 1 mg 02/03/19 21:00 02/05/19 08:52 Klonopin PO 1 mg BID NIKA Administration Dabigatran 150 mg 02/03/19 21:00 02/05/19 08:52 Pradaxa PO 150 mg BID NIKA Administration Digoxin 125 mcg 02/04/19 09:00 02/04/19 09:03 Lanoxin PO 125 mcg DAILY NIKA Administration Docusate Sodium 100 mg 02/03/19 21:00 02/05/19 08:51 Colace PO 100 mg BID [facility] Administration Insulin Aspart 0 unit 02/03/19 21:00 02/05/19 05:43 Novolog SQ 8 unit ACHS NIKA Administration Protocol Levofloxacin 500 mg 02/03/19 17:00 02/05/19 08:51 Levaquin PO 02/11/19 17:01 500 mg DAILY NIKA Administration Methylprednisolone Sodium Succinate 60 mg 02/03/19 18:00 02/05/19 05:35 Solu-Medrol IV 60 mg Q6HR NIKA Administration Metoprolol Tartrate 150 mg 02/04/19 09:00 02/05/19 08:52 Lopressor PO 150 mg DAILY [facility] Administration Morphine Sulfate 2 mg 02/03/19 18:57 Morphine Sulfate (Inj) IV Q4HR PRN Severe Pain Naloxone HCl 0.2 mg 02/03/19 18:57 Narcan IV Q2M PRN Opioid Reversal Pantoprazole Sodium 40 mg 02/04/19 07:30 02/05/19 05:34 Protonix PO 40 mg AC-[id number] NIKA Administration Pregabalin 75 mg 02/03/19 21:00 02/05/19 08:52 Lyrica PO 75 mg BID [facility] Administration Trazodone HCl 50 mg 02/03/19 21:00 02/04/19 22:46 Desyrel PO 50 mg HS [facility] Administration Intake and Output 02/04/19 02/05/19 02/05/19 22:59 06:59 14:59 Intake Total 480 240 Balance 480 240 Intake: Oral 480 240 Other: Voiding Method Toilet 02/04/19 06:30 02/04/19 06:30
[2019-02-05 12:54] VITALS: BP 129/78; TEMP 97.8
--- NOTE | 2019-02-05 13:47 | P.PN ---
Subjective Progress Note Date: 02/05/19 Principal diagnosis: shortness of breath patient was seen and examined. No acute events overnight. Patient reports great improvement in his breathing, back to baseline. Patient reports that he would like to go home. He denies any chest pain, shortness of breath or palpitations. No nausea or vomiting. No fever or chills. On 3-1/2 L home O2 nasal cannula. Objective - Vital Signs Vital signs: Vital Signs Temp 97.8 F 02/05/19 12:00 Pulse 70 02/05/19 12:00 Resp 16 02/05/19 12:00 BP 129/78 02/05/19 12:00 Pulse Ox 94 L 02/05/19 12:00 Intake & Output 02/04/19 02/05/19 02/05/19 18:59 06:59 18:59 Intake Total 960 240 Balance 960 240 Weight 190.2 kg Intake: Oral 960 240 Other: Voiding Method Toilet # Voids 1 - Exam General: [non toxic], [no distress], [appears at stated age], [morbidly obese] Derm: [warm], [dry] Head: [atraumatic], [normocephalic], [symmetric] Eyes: [EOMI], [no lid lag], [anicteric sclera] Mouth: [no lip lesion], [mucus membranes moist] Cardiovascular: [S1S2 reg], [irregularly irregular], [positive posterior tibial pulse bilateral], Lungs: [Decreased breath sounds bilaterally ], [no rhonchi, no rales] , [no accessory muscle use], [obese] Abdominal: [soft], [ nontender to palpation], [no guarding], [no appreciable organomegaly] Ext: [no gross muscle atrophy], [no edema], [no contractures], [chronic lower extremity skin changes] Neuro: [no focal neuro deficits] Psych: [Alert], [oriented], [appropriate affect] - Labs CBC & Chem 7: 02/04/19 06:30 02/04/19 06:30 Labs: Abnormal Lab Results - Last 24 Hours (Table) 02/04/19 02/04/19 02/04/19 Range/Units 16:32 20:55 21:31 POC Glucose (mg/dL) 208 H 251 H 210 H (75-99) mg/dL 02/05/19 02/05/19 Range/Units 05:41 11:30 POC Glucose (mg/dL) 231 H 165 H (75-99) mg/dL Microbiology - Last 24 Hours (Table) 02/03/19 13:37 Blood Culture - Preliminary Blood No Growth after 24 hours Assessment and Plan Assessment: Assessment and Plan 0. Acute hypoxic respiratory failure 1. Metabolic alkalosis with respiratory acidosis 2. COPD exacerbation 3. Community acquired pneumonia 4. CHF exacerbation 5. Atrial fibrillation 6. Diabetes mellitus 7. Troponin elevation 8. Acute kidney injury on chronic kidney disease 0. Likely secondary to combination of CHF and COPD exacerbation, treated with pneumonia. Optimize COPD medications. ABG and BMP pointing towards contraction alkalosis, will DC Lasix while in house and resume on discharge. O2 per nasal cannula to maintain O2 saturation greater than 92%. BiPAP as needed. Follow pulmonology consultation 1. PH of 7.47, pCO2 of 63, bicarbonate of 41. Likely secondary to COPD exacerbation and the use of diuretics in the outpatient setting. Resume Lasix by mouth on discharge. BiPAP as needed to wash out CO2. 2. Continue DuoNeb 4 times a day scheduled and as needed for shortness of breath and wheezing. Transition Solu-Medrol 60 g IV every 6 hours to prednisone on discharge. Management as above. Follow pulmonology consultation. 3. As seen on chest x-ray. Patient is afebrile with no leukocytosis. Start levofloxacin by mouth. Management as above. 4. Continue beta shell. Strict intake and output take. Daily weights. Follow-up echocardiogram results. 5. Continue metoprolol for rate control. Anticoagulation with Pradaxa. Keep potassium greater than 4 magnesium greater than 2. Telemetry monitoring. Follow-up echocardiogram. 6. [id number] glucose 165. Regular Accu-Cheks. Hypoglycemic precautions. Insulin sliding scale. 7. Troponin 0.088, 0.082, 0.082 with EKG showing atrial fibrillation. ACS ruled out. Echo shows EF 60-65% with hypokinetic wall motion. Telemetry monitoring. Cardiology consulted, recommends medical management. 8. BUN 50-53, creatinine 1.82-1.71. Avoid nephrotoxins. Encourage hydration. Mouth. Daily BMP. Patient admitted for acute hypoxic respiratory failure. Greatly improved since admission. Will DC home today.
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
== END 2019-02-05 14:48 | disposition home health service (06) | DRG 291 ==
LOC: EC 13:20 → 3SCARD 15:41
PROVIDERS: ADMIT Internal Medicine; ATTEND Internal Medicine
PROC: 5A09457 Assistance with Respiratory Ventilation, 24-96 Consecutive Hours, Continuous Positive Airway Pressure (ICD-10-PCS; principal; 2019-02-03)
DX: I13.0 Hypertensive heart and chronic kidney disease with heart failure and stage 1 through stage 4 chronic kidney disease, or unspecified chronic kidney disease (principal); J96.01 Acute respiratory failure with hypoxia; I50.33 Acute on chronic diastolic (congestive) heart failure; J18.9 Pneumonia, unspecified organism; N17.9 Acute kidney failure, unspecified; E87.4 Mixed disorder of acid-base balance; J44.1 Chronic obstructive pulmonary disease with (acute) exacerbation; J44.0 Chronic obstructive pulmonary disease with (acute) lower respiratory infection; Z68.43 Body mass index [BMI] 50.0-59.9, adult; E66.2 Morbid (severe) obesity with alveolar hypoventilation; I27.81 Cor pulmonale (chronic); E11.42 Type 2 diabetes mellitus with diabetic polyneuropathy; I27.29 Other secondary pulmonary hypertension; E11.41 Type 2 diabetes mellitus with diabetic mononeuropathy; E11.22 Type 2 diabetes mellitus with diabetic chronic kidney disease; I48.0 Paroxysmal atrial fibrillation; N18.9 Chronic kidney disease, unspecified; R74.8 Abnormal levels of other serum enzymes; I87.8 Other specified disorders of veins; M19.90 Unspecified osteoarthritis, unspecified site; K21.9 Gastro-esophageal reflux disease without esophagitis; E78.5 Hyperlipidemia, unspecified; M10.9 Gout, unspecified; I44.7 Left bundle-branch block, unspecified; D64.9 Anemia, unspecified; Z79.84 Long term (current) use of oral hypoglycemic drugs; Z79.899 Other long term (current) drug therapy; Z79.82 Long term (current) use of aspirin; Z79.02 Long term (current) use of antithrombotics/antiplatelets; Z99.81 Dependence on supplemental oxygen; Z86.14 Personal history of Methicillin resistant Staphylococcus aureus infection; Z87.891 Personal history of nicotine dependence; Z87.738 Personal history of other specified (corrected) congenital malformations of digestive system; Z83.3 Family history of diabetes mellitus; Z82.5 Family history of asthma and other chronic lower respiratory diseases; Z82.62 Family history of osteoporosis; Z82.49 Family history of ischemic heart disease and other diseases of the circulatory system
CPT/HCPCS: 36415; 71046; 80048; 80053; 82805; 83735; 83880; 84484; 85025; 85610; 85730; 87040; 93005; 93306; 94640; 94660; 94760; 96374; 96375; 99291

== ENCOUNTER 2019-08-02 14:33 | Inpatient (IN) | payer MEDICARE ==
--- NOTE | 2019-08-02 15:09 | ED ---
General Adult HPI - General Chief complaint: Eye Problems Stated complaint: Vision problmes Time Seen by Provider: 08/02/19 14:50 Source: patient, EMS, RN notes reviewed Mode of arrival: EMS Limitations: no limitations - History of Present Illness Initial comments: This a 58-year-old male who is a very poor historian. Patient comes in with a past history of diabetes hypertension high cholesterol and congestive heart failure. Patient states she was in the hospital somewhere around 2 weeks ago. Patient states that she's gotten out he is been more more confused he feels as though he is having some visual hallucinations on occasion and states this morning when he woke up and got out of bed his vision was blurred but that resolved shortly after he got up. Patient states he sees things in his periphery that are not there and he also states he has seen his dog which she knows is clearly not there. Patient also complains of shortness of breath. Patient denies any fever chills or cough per patient denies chest pain. Patient denies abdominal pain patient denies nausea vomiting or diarrhea. Patient denies any headache patient denies any focal numbness or weakness. Patient states he is on 4 L of oxygen at home. - Related Data Home Medications Medication Instructions Recorded Confirmed Allopurinol [Zyloprim] 100 mg PO BID 02/10/16 08/02/19 Dabigatran [Pradaxa] 150 mg PO BID 02/10/16 08/02/19 Fluticasone/Salmeterol [Advair 1 puff INHALATION RT-BID 02/10/16 08/02/19 250-50 Diskus] Furosemide [Lasix] 80 mg PO BID 02/10/16 08/02/19 Simvastatin [Zocor] 20 mg PO HS 02/10/16 08/02/19 Digoxin [Lanoxin] 125 mcg PO DAILY 02/11/16 08/02/19 glipiZIDE [Glucotrol] 5 mg PO DAILY 02/11/16 08/02/19 Ammonium Lactate Lotion 1 applic TOPICAL BID PRN 02/03/19 08/02/19 [Lac-Hydrin 12% Lotion] Aspirin [Adult Low Dose Aspirin EC] 81 mg PO DAILY 02/03/19 08/02/19 Cholecalciferol (Vitamin D3) 2,000 unit PO DAILY 02/03/19 08/02/19 [Vitamin D3] Docusate [Colace] 100 mg PO BID 02/03/19 08/02/19 Metolazone [Zaroxolyn] 5 mg PO Q48H 02/03/19 08/02/19 Miconazole Nitrate [Miconazole 1 applic TOPICAL DAILY PRN 02/03/19 08/02/19 Nitrate 2%] Pregabalin [Lyrica] 75 mg PO BID 02/03/19 08/02/19 traZODone HCL 50 mg PO HS 02/03/19 08/02/19 Ipratropium-Albuterol Nebulize 3 ml INHALATION RT-QID PRN 08/02/19 08/02/19 [Duoneb 0.5 mg-3 mg/3 ml Soln] Metoprolol Succinate [Toprol XL] 150 mg PO DAILY 08/02/19 08/02/19 Omeprazole [PriLOSEC] 40 mg PO BID 08/02/19 08/02/19 Spironolactone 25 mg PO DAILY 08/02/19 08/02/19 Torsemide [Demadex] 40 mg PO DAILY 08/02/19 08/02/19 Previous Rx's Medication Instructions Recorded clonazePAM [KlonoPIN] 1 mg PO BID #60 tab 04/14/18 Allergies Allergy/AdvReac Type Severity Reaction Status Date / Time No Known Allergies Allergy Verified 08/02/19 16:01 Review of Systems ROS Statement: Those systems with pertinent positive or pertinent negative responses have been documented in the HPI. ROS Other: All systems not noted in ROS Statement are negative. Past Medical History Past Medical History: Atrial Fibrillation, Heart Failure, COPD, Diabetes Mellitus, GERD/Reflux, Hyperlipidemia, Hypertension, Neurologic Disorder, Osteoarthritis (OA), Sleep Apnea/CPAP/BIPAP Additional Past Medical History / Comment(s): NIDDM, bilateral lower leg and feet neuropathy, gout-travels everywhere per pt History of Any Multi-Drug Resistant Organisms: MRSA Date of last positivie culture/infection: 2005 or 2007 per pt-tx while pt lived in [place] MDRO Source:: Low back Past Surgical History: Adenoidectomy, Tonsillectomy Additional Past Surgical History / Comment(s): Pyloric stenosis when he was an , bilateral knee arthroscopies, 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 Past Anesthesia/Blood Transfusion Reactions: No Reported Reaction Past Psychological History: No Psychological Hx Reported, Anxiety Smoking Status: Former smoker Past Alcohol Use History: Rare Past Drug Use History: Marijuana - Past Family History Father Family Medical History: Coronary Artery Disease (CAD), Diabetes Mellitus Additional Family Medical History / Comment(s): Father had heart disease. He at age 74 of possible a ND-pt not sure. Mother Family Medical History: Congestive Heart Failure (CHF), COPD, Coronary Artery Disease (CAD) Additional Family Medical History / Comment(s): Mother had heart problems. She at age 72 yrs. She had osteoporosis. Brother(s) Family Medical History: No Reported History Sister(s) Family Medical History: Diabetes Mellitus Daughter(s) Family Medical History: No Reported History Son(s) Family Medical History: No Reported History General Exam - General Exam Comments Initial Comments: GENERAL: Patient is well-developed and well-nourished. Patient is nontoxic and well- hydrated and is in mild distress. ENT: Neck is soft and supple. No significant lymphadenopathy is noted. Oropharynx is clear. Moist mucous membranes. Neck has full range of motion without eliciting any pain. EYES: The sclera were anicteric and conjunctiva were pink and moist. Extraocular movements were intact and pupils were equal round and reactive to light. Eyelids were unremarkable. PULMONARY: Unlabored respirations. Good breath sounds bilaterally. No audible rales rhonchi or wheezing was noted. CARDIOVASCULAR: There is a regular rate and rhythm without any murmurs gallops or rubs. ABDOMEN: Soft and nontender with normal bowel sounds. Patient is morbidly obese SKIN: Skin is clear with no lesions or rashes and otherwise unremarkable. NEUROLOGIC: Patient is alert and oriented x3. Cranial nerves II through XII are grossly intact. Motor and sensory are also intact. Normal speech, volume and content. Symmetrical smile. MUSCULOSKELETAL: Normal extremities with adequate strength and full range of motion. Chronic cellulitis bilateral legs edema bilateral legs LYMPHATICS: No significant lymphadenopathy is noted PSYCHIATRIC: Normal psychiatric evaluation. Limitations: no limitations Course Vital Signs 08/02/19 08/02/19 08/02/19 14:50 16:22 18:00 Temperature 98.4 F Pulse Rate 102 H 103 H 103 H Respiratory 20 18 16 Rate Blood Pressure 130/84 135/83 138/71 O2 Sat by Pulse 95 93 L 95 Oximetry Medical Decision Making - Medical Decision Making EKG shows atrial fibrillation with rapid ventricular response at 109 bpm QRS is 14 QT interval 342 QTC is 460. Patient's old EKG also shows A. fib. Chest x-ray shows pulmonary congestion Patient's potassium was 5.8 to the patient's potassium with bicarb insulin D50 and albuterol and Leg. I also given a pass and calcium chloride. I spoke with Dr. Jenkins agreed to admit the patient admitted the patient wrote admitting orders I consult cardiology as well as nephrology - Lab Data Result diagrams: 08/02/19 15:52 08/02/19 15:52 Lab Results 08/02/19 08/02/19 08/02/19 Range/Units 15:52 15:52 15:52 WBC 7.1 (3.8-10.6) k/uL RBC 3.59 L (4.30-5.90) m/uL Hgb 9.4 L (13.0-17.5) gm/dL Hct 31.5 L (39.0-53.0) % MCV 87.8 (80.0-100.0) fL MCH 26.1 (25.0-35.0) pg MCHC 29.7 L (31.0-37.0) g/dL RDW 16.8 H (11.5-15.5) % Plt Count 247 (150-450) k/uL Neutrophils % (Manual) 89 % Lymphocytes % (Manual) 3 % Monocytes % (Manual) 6 % Eosinophils % (Manual) 2 % Neutrophils # (Manual) 6.32 (1.3-7.7) k/uL Lymphocytes # (Manual) 0.21 L (1.0-4.8) k/uL Monocytes # (Manual) 0.43 (0-1.0) k/uL Eosinophils # (Manual) 0.14 (0-0.7) k/uL Nucleated RBCs 0 (0-0) /100 WBC Manual Slide Review Performed Polychromasia Present Hypochromasia Marked Poikilocytosis Slight Anisocytosis Slight Anisocytosis (manual) Present Target Cells Present PT 12.3 H (9.0-12.0) sec INR 1.2 H (<1.2) APTT 35.5 H (22.0-30.0) sec Sodium 136 L (137-145) mmol/L Potassium 5.8 H (3.5-5.1) mmol/L Chloride 90 L (98-107) mmol/L Carbon Dioxide 39 H (22-30) mmol/L Anion Gap 7 mmol/L BUN 77 H (9-20) mg/dL Creatinine 3.39 H (0.66-1.25) mg/dL Est GFR (CKD-EPI)AfAm 22 (>60 ml/min/1.73 sqM) Est GFR (CKD-EPI)NonAf 19 (>60 ml/min/1.73 sqM) Glucose 118 H (74-99) mg/dL POC Glucose (mg/dL) (75-99) mg/dL POC Glu Shot Blaster ID Plasma Lactic Acid Brandon (0.7-2.0) mmol/L Calcium 8.8 (8.4-10.2) mg/dL Total Bilirubin 0.5 (0.2-1.3) mg/dL AST 30 (17-59) U/L ALT 23 (21-72) U/L Alkaline Phosphatase 67 (38-126) U/L Troponin I (0.000-0.034) ng/mL NT-Pro-B Natriuret Pep pg/mL Total Protein 6.3 (6.3-8.2) g/dL Albumin 3.4 L (3.5-5.0) g/dL Urine Color Urine Appearance (Clear) Urine pH (5.0-8.0) Ur Specific [place] (1.001-1.035) Urine Protein (Negative) Urine Glucose (UA) (Negative) Urine Ketones (Negative) Urine Blood (Negative) Urine Nitrite (Negative) Urine Bilirubin (Negative) Urine Urobilinogen (<2.0) mg/dL Ur Leukocyte Esterase (Negative) Urine WBC (0-5) /hpf Ur Squamous Epith Cells (0-4) /hpf Amorphous Sediment (None) /hpf Hyaline Casts (0-2) /lpf Urine Mucus (None) /hpf Urine Opiates Screen (NotDetected) Ur Oxycodone Screen (NotDetected) Urine Methadone Screen (NotDetected) Ur Propoxyphene Screen (NotDetected) Ur Barbiturates Screen (NotDetected) U Tricyclic Antidepress (NotDetected) Ur Phencyclidine Scrn (NotDetected) Ur Amphetamines Screen (NotDetected) U Methamphetamines Scrn (NotDetected) U Benzodiazepines Scrn (NotDetected) Urine Cocaine Screen (NotDetected) U Marijuana (THC) Screen (NotDetected) 08/02/19 08/02/19 08/02/19 Range/Units 15:52 15:52 15:52 WBC (3.8-10.6) k/uL RBC (4.30-5.90) m/uL Hgb (13.0-17.5) gm/dL Hct (39.0-53.0) % MCV (80.0-100.0) fL MCH (25.0-35.0) pg MCHC (31.0-37.0) g/dL RDW (11.5-15.5) % Plt Count (150-450) k/uL Neutrophils % (Manual) % Lymphocytes % (Manual) % Monocytes % (Manual) % Eosinophils % (Manual) % Neutrophils # (Manual) (1.3-7.7) k/uL Lymphocytes # (Manual) (1.0-4.8) k/uL Monocytes # (Manual) (0-1.0) k/uL Eosinophils # (Manual) (0-0.7) k/uL Nucleated RBCs (0-0) /100 WBC Manual Slide Review Polychromasia Hypochromasia Poikilocytosis Anisocytosis Anisocytosis (manual) Target Cells PT (9.0-12.0) sec INR (<1.2) APTT (22.0-30.0) sec Sodium (137-145) mmol/L Potassium (3.5-5.1) mmol/L Chloride (98-107) mmol/L Carbon Dioxide (22-30) mmol/L Anion Gap mmol/L BUN (9-20) mg/dL Creatinine (0.66-1.25) mg/dL Est GFR (CKD-EPI)AfAm (>60 ml/min/1.73 sqM) Est GFR (CKD-EPI)NonAf (>60 ml/min/1.73 sqM) Glucose (74-99) mg/dL POC Glucose (mg/dL) (75-99) mg/dL POC Glu Shot Blaster ID Plasma Lactic Acid Brandon 1.2 (0.7-2.0) mmol/L Calcium (8.4-10.2) mg/dL Total Bilirubin (0.2-1.3) mg/dL AST (17-59) U/L ALT (21-72) U/L Alkaline Phosphatase (38-126) U/L Troponin I 0.091 H* (0.000-0.034) ng/mL NT-Pro-B Natriuret Pep 3500 pg/mL Total Protein (6.3-8.2) g/dL Albumin (3.5-5.0) g/dL Urine Color Urine Appearance (Clear) Urine pH (5.0-8.0) Ur Specific [place] (1.001-1.035) Urine Protein (Negative) Urine Glucose (UA) (Negative) Urine Ketones (Negative) Urine Blood (Negative) Urine Nitrite (Negative) Urine Bilirubin (Negative) Urine Urobilinogen (<2.0) mg/dL Ur Leukocyte Esterase (Negative) Urine WBC (0-5) /hpf Ur Squamous Epith Cells (0-4) /hpf Amorphous Sediment (None) /hpf Hyaline Casts (0-2) /lpf Urine Mucus (None) /hpf Urine Opiates Screen (NotDetected) Ur Oxycodone Screen (NotDetected) Urine Methadone Screen (NotDetected) Ur Propoxyphene Screen (NotDetected) Ur Barbiturates Screen (NotDetected) U Tricyclic Antidepress (NotDetected) Ur Phencyclidine Scrn (NotDetected) Ur Amphetamines Screen (NotDetected) U Methamphetamines Scrn (NotDetected) U Benzodiazepines Scrn (NotDetected) Urine Cocaine Screen (NotDetected) U Marijuana (THC) Screen (NotDetected) 08/02/19 08/02/19 Range/Units 16:44 17:29 WBC (3.8-10.6) k/uL RBC (4.30-5.90) m/uL Hgb (13.0-17.5) gm/dL Hct (39.0-53.0) % MCV (80.0-100.0) fL MCH (25.0-35.0) pg MCHC (31.0-37.0) g/dL RDW (11.5-15.5) % Plt Count (150-450) k/uL Neutrophils % (Manual) % Lymphocytes % (Manual) % Monocytes % (Manual) % Eosinophils % (Manual) % Neutrophils # (Manual) (1.3-7.7) k/uL Lymphocytes # (Manual) (1.0-4.8) k/uL Monocytes # (Manual) (0-1.0) k/uL Eosinophils # (Manual) (0-0.7) k/uL Nucleated RBCs (0-0) /100 WBC Manual Slide Review Polychromasia Hypochromasia Poikilocytosis Anisocytosis Anisocytosis (manual) Target Cells PT (9.0-12.0) sec INR (<1.2) APTT (22.0-30.0) sec Sodium (137-145) mmol/L Potassium (3.5-5.1) mmol/L Chloride (98-107) mmol/L Carbon Dioxide (22-30) mmol/L Anion Gap mmol/L BUN (9-20) mg/dL Creatinine (0.66-1.25) mg/dL Est GFR (CKD-EPI)AfAm (>60 ml/min/1.73 sqM) Est GFR (CKD-EPI)NonAf (>60 ml/min/1.73 sqM) Glucose (74-99) mg/dL POC Glucose (mg/dL) 125 H (75-99) mg/dL POC Glu Shot Blaster ID Zenaida Teran Plasma Lactic Acid Brandon (0.7-2.0) mmol/L Calcium (8.4-10.2) mg/dL Total Bilirubin (0.2-1.3) mg/dL AST (17-59) U/L ALT (21-72) U/L Alkaline Phosphatase (38-126) U/L Troponin I (0.000-0.034) ng/mL NT-Pro-B Natriuret Pep pg/mL Total Protein (6.3-8.2) g/dL Albumin (3.5-5.0) g/dL Urine Color Yellow Urine Appearance Clear (Clear) Urine pH 5.5 (5.0-8.0) Ur Specific [place] 1.014 (1.001-1.035) Urine Protein 1+ H (Negative) Urine Glucose (UA) Negative (Negative) Urine Ketones Negative (Negative) Urine Blood Negative (Negative) Urine Nitrite Negative (Negative) Urine Bilirubin Negative (Negative) Urine Urobilinogen 2.0 (<2.0) mg/dL Ur Leukocyte Esterase Negative (Negative) Urine WBC 2 (0-5) /hpf Ur Squamous Epith Cells <1 (0-4) /hpf Amorphous Sediment Occasional H (None) /hpf Hyaline Casts 7 H (0-2) /lpf Urine Mucus Occasional H (None) /hpf Urine Opiates Screen Not Detected (NotDetected) Ur Oxycodone Screen Not Detected (NotDetected) Urine Methadone Screen Not Detected (NotDetected) Ur Propoxyphene Screen Not Detected (NotDetected) Ur Barbiturates Screen Not Detected (NotDetected) U Tricyclic Antidepress Not Detected (NotDetected) Ur Phencyclidine Scrn Not Detected (NotDetected) Ur Amphetamines Screen Not Detected (NotDetected) U Methamphetamines Scrn Not Detected (NotDetected) U Benzodiazepines Scrn Detected H (NotDetected) Urine Cocaine Screen Not Detected (NotDetected) U Marijuana (THC) Screen Not Detected (NotDetected) Critical Care Time Critical Care Time: Yes Total Critical Care Time: 35 Disposition Clinical Impression: Elevated troponin, Acute on chronic renal failure, Anemia, Hyperkalemia, Pulmonary edema Disposition: ADMITTED IP TO THIS HOSP Referrals: Aramis Fry MD [Primary Care Provider] - 1-2 days Time of Disposition: 18:52
[2019-08-02 16:24] LABS: Albumin 3.4 g/dL (3.5-5.0); Calcium 8.8 mg/dL (8.4-10.2); Potassium 5.8 mmol/L (3.5-5.1); Total Bilirubin 0.5 mg/dL (0.2-1.3); Total Protein 6.3 g/dL (6.3-8.2)
[2019-08-02 16:26] LABS: INR 1.2 (<1.2); Partial Thromboplastin Time 35.5 sec (22.0-30.0); Prothrombin Time 12.3 sec (9.0-12.0)
[2019-08-02 16:36] LABS: Anisocytosis Slight; HCT 31.5 % (39.0-53.0); HGB 9.4 gm/dL (13.0-17.5); Hypochromasia Marked; MCH 26.1 pg (25.0-35.0); MCHC 29.7 g/dL (31.0-37.0); MCV 87.8 fL (80.0-100.0); Mean Platelet Volume 7.6; Platelet Count 247 k/uL (150-450); Poikilocytosis Slight; RBC 3.59 m/uL (4.30-5.90); RDW 16.8 % (11.5-15.5); WBC 7.1 k/uL (3.8-10.6)
[2019-08-02 16:47] LABS: Glucose,Whole Blood 125 mg/dL (75-99)
--- NOTE | 2019-08-02 16:53 | CT ---
EXAMINATION TYPE: CT brain wo con DATE OF EXAM: 08/02/2019 COMPARISON: None HISTORY: Fatigue CT DLP: 1217.4 mGycm Automated exposure control for dose reduction was used. FINDINGS: Ventricles have normal size. There is no mass effect nor midline shift. There is no sign of intracran ial hemorrhage. The calvarium is intact. There is no evidence of cerebral edema. There is dense bone artifact in the posterior fossa. IMPRESSION: NEGATIVE CT SCAN OF THE BRAIN.
[2019-08-02 16:58] LABS: Anisocytosis (M) Present; Eosinophils # (M) 0.14 k/uL (0-0.7); Lymphocytes # (M) 0.21 k/uL (1.0-4.8); Monocytes # (M) 0.43 k/uL (0-1.0); Neutrophils % (M) 89 %; Nucleated Red Blood Cells 0 /100 WBC (0-0); Polychromasia Present; Target Cells Present; Total Cells Counted 100
--- NOTE | 2019-08-02 17:13 | XR ---
EXAMINATION TYPE: XR chest 2V DATE OF EXAM: 08/02/2019 COMPARISON: 02/03/2019 HISTORY: Visual problems. Altered mental status. TECHNIQUE: Frontal and lateral views of the chest are obtained. FINDINGS: Heart is enlarged. There is mild pulmonary vascular congestion. There are chest leads. The re is no definite pleural effusion. IMPRESSION: There is some mild atelectasis at the right lung base. Mild pulmonary congestion increas ed slightly compared to last exam but no overt heart failure.
[2019-08-02 18:03] LABS: Amorphous Sediment,Urine Occasional /hpf; Amphetamine Screen,Urine Not Detected (NotDetected); Appearance,Urine Clear (Clear); Barbiturate Screen,Urine Not Detected (NotDetected); Benzodiazepines Screen,Urine Detected (NotDetected); Bilirubin,Urine Negative (Negative); Blood,Urine Negative (Negative); Cocaine Screen,Urine Not Detected (NotDetected); Color,Urine Yellow; Glucose,Urine (UA) Negative (Negative); Hyaline Casts,Urine 7 /lpf (0-2); Ketones,Urine Negative (Negative); Leukocyte Esterase,Urine Negative (Negative); Methadone Screen, Urine Not Detected (NotDetected); Mucus,Urine Occasional /hpf; Nitrite,Urine Negative (Negative); Opiate Screen,Urine Not Detected (NotDetected); Oxycodone Screen, Urine Not Detected (NotDetected); PH, Urine 5.5 (5.0-8.0); Phencyclidine Screen,Urine Not Detected (NotDetected); Protein,Urine 1+ (Negative); Specific Gravity,Urine 1.014 (1.001-1.035); Squamous Epithelial Cell,Urine <1 /hpf (0-4); Tricyclic Antidepressant,Urine Not Detected (NotDetected); Urn Cannabinoid Scrn Not Detected (NotDetected)
[2019-08-02] MEDS ORDERED: CALCIUM CHLORIDE 100 MG/ML 10 ML SYRINGE IVP STA (18:27)
[2019-08-02] MEDS ORDERED: SODIUM BICARB 8.4% 50 ML SYR (1 MEQ/ML) IV STA (18:28)
[2019-08-02] MEDS ORDERED: IPRATROPIUM-ALBUTEROL 3 ML NEB INHALATION STA (18:28)
[2019-08-02] MEDS ORDERED: DEXTROSE 50% SYRINGE 50 ML IVP STA (18:28)
[2019-08-02] MEDS ORDERED: INSULIN REGULAR 100 UNIT/ML VIAL IV ONE (18:28)
[2019-08-02] MEDS ORDERED: SODIUM POLYSTYRENE SULFONATE 15 GM/60 ML BOTTLE PO STA (18:29)
[2019-08-02] MEDS ORDERED: FUROSEMIDE 10 MG/ML 4 ML VIAL IV STA (18:53)
[2019-08-02 19:43] LABS: ABG Base Excess 16.7 mmol/L; ABG Oxygen Saturation 92.1 % (94-97); ABG PH 7.32 (7.35-7.45); ABG PO2 71 mmHg (83-108); ABG TCO2 45 mmol/L (19-24); Allen Test Performed? Yes
[2019-08-02 20:11] LABS: ABG HCO3 43 mmol/L (21-25); ABG PCO2 83 mmHg (35-45)
[2019-08-03] MEDS: ATORVASTATIN 10 MG TAB PO SCH ×2 (00:45→23:40)
[2019-08-03] MEDS: ALLOPURINOL 100 MG TAB PO SCH ×3 (00:45→23:39)
[2019-08-03] MEDS: DOCUSATE 100 MG CAP PO SCH ×2 (00:45→09:26)
[2019-08-03] MEDS: traZODone HCL 50 MG TAB PO SCH ×2 (00:45→23:40)
[2019-08-03] MEDS: PREGABALIN 75 MG CAP PO SCH ×3 (00:45→23:39)
[2019-08-03] MEDS: METOPROLOL SUCCINATE (ER) 50 MG TAB.ER.24H PO SCH ×2 (00:46→15:37)
[2019-08-03] MEDS: METOLAZONE 5 MG TAB PO SCH (00:48)
[2019-08-03] MEDS: DABIGATRAN 150 MG CAP PO SCH ×3 (01:03→23:39)
[2019-08-03 05:10] LABS: Anisocytosis Slight; Basophils # (A) 0.1 k/uL (0-0.2); Basophils % (A) 1 %; Eosinophils # (A) 0.1 k/uL (0-0.7); Eosinophils % (A) 1 %; HCT 28.7 % (39.0-53.0); HGB 8.9 gm/dL (13.0-17.5); Hypochromasia Marked; Lymphocytes # (A) 0.6 k/uL (1.0-4.8); Lymphocytes % (A) 12 %; MCV 87.1 fL (80.0-100.0); Mean Platelet Volume 7.3; Monocytes # (A) 0.3 k/uL (0-1.0); Monocytes % (A) 6 %; Neutrophils # (A) 4.2 k/uL (1.3-7.7); Neutrophils % (A) 76 %; Platelet Count 248 k/uL (150-450); RDW 16.3 % (11.5-15.5); WBC 5.5 k/uL (3.8-10.6)
[2019-08-03 06:40] LABS: Glucose,Whole Blood 96 mg/dL (75-99)
[2019-08-03] MEDS ORDERED: FUROSEMIDE 10 MG/ML 4 ML VIAL IV SCH (07:00)
[2019-08-03 07:15] LABS: Potassium 4.9 mmol/L (3.5-5.1)
[2019-08-03] MEDS: SYMBICORT 80-4.5 MCG INHALER INHALATION SCH ×2 (08:08→20:16)
[2019-08-03] MEDS: IPRATROPIUM-ALBUTEROL 3 ML NEB INHALATION PRN ×4 (08:08→20:16)
[2019-08-03] MEDS ORDERED: AMMONIUM LACTATE 12% LOTION 225 GM BTL TOPICAL PRN (09:00)
[2019-08-03] MEDS ORDERED: MICONAZOLE NITRATE 2% CREAM 14 GM TUBE TOPICAL PRN (09:00)
[2019-08-03] MEDS ORDERED: TORSEMIDE 20 MG TAB PO SCH (09:00)
[2019-08-03] MEDS: CHOLECALCIFEROL 1,000 UNIT TAB PO SCH (09:26)
[2019-08-03] MEDS: PANTOPRAZOLE 40 MG TABLET PO SCH ×2 (09:26→23:40)
[2019-08-03] MEDS: DIGOXIN 125 MCG TAB PO SCH (09:26)
[2019-08-03] MEDS: ASPIRIN 81 MG PO SCH (09:27)
[2019-08-03] MEDS: clonazePAM 1 MG TAB PO SCH ×2 (09:27→23:39)
[2019-08-03] MEDS: glipiZIDE 5 MG TAB PO SCH (09:27)
[2019-08-03 12:04] LABS: Glucose,Whole Blood 78 mg/dL (75-99)
[2019-08-03] MEDS: SPIRONOLACTONE 25 MG TAB PO SCH (12:15)
[2019-08-03] MEDS: FUROSEMIDE 100 MG in SODIUM CHLORIDE 0.9% 90 ML IV SCH (14:44)
[2019-08-03] MEDS: CEPHALEXIN 500 MG CAP PO SCH ×2 (15:37→23:40)
--- NOTE | 2019-08-03 15:59 | P.CNPUL ---
History of Present Illness Consult date: 08/03/19 Requesting physician: Ney Jenkins Reason for consult: dyspnea Chief complaint: Shortness of breath, swelling in lower extremities History of present illness: This is a 58-year-old white male patient of Dr. Fry, with past medical history of morbid obesity status post bariatric surgery, diabetes mellitus, hypertension, hyperlipidemia, chronic congestive heart failure, chronic A. fib, former smoker, COPD, obstructive sleep apnea on BiPAP therapy, hypoxemic respiratory failure related to COPD and CHF. Patient presented to the emergency department on 08/02/2019 for evaluation of increasing shortness of breath, confusion, and patient was seeing things that were not there, seeing waves in t he carpet, seeing people that were not there. In addition his vision was blurred, he thought he may have been related to low oxygen level, he does not have a pulse ox but he felt that his oxygen level was probably low especially with any exertion. He states he has been compliant with his medications, he is on maintenance dose Lasix at home, he is on oral anticoagulation for history of A. fib. He denied any fever or chills, he did notice some increasing shakes in his legs and body, but denied any chest pain. Patient lives by himself, but he states his diet is probably not very compliant with low-sodium. No fever or chills, he normally wears 4 L of oxygen at home, patient is not familiar with his BiPAP settings, but he states his been using it consistently. Chest x-ray was taken in the emergency department, showing some mild atelectasis at the right lung base, and mild pulmonary congestion slightly increased from prior exam. Blood gas was taken in the emergency department showing acute on chronic hypercapnic respiratory failure. White count was normal, sodium was 136, potassium is 5.8, chloride was 90, CO2 was 39, BNP was elevated at 3500, troponin was 0.091, 0.103, 0.101. Drug screen was done showing benzodiazepines, urinalysis was unremarkable. Patient was then placed on BiPAP with pressures of 12 and 6, and FiO2 45%, became more arousable, he was started on Lasix drip, brain CT was negative. At time of my evaluation patient is awake and alert, he is on 2 L of oxygen, off the BiPAP support, breathing easier, continues on Lasix drip at 10 mg per hour Review of Systems All systems: negative Constitutional: Denies chills, Denies fever Eyes: bilateral blurred vision, denies pain Ears, nose, mouth and throat: Denies headache, Denies sore throat Cardiovascular: Reports dyspnea on exertion, Reports edema, Reports leg edema, Denies chest pain, Denies shortness of breath Respiratory: Denies cough Gastrointestinal: Denies abdominal pain, Denies diarrhea, Denies nausea, Denies vomiting Musculoskeletal: Denies myalgias Musculoskeletal: bilateral: ankle swelling, foot swelling Integumentary: Reports darkening of skin, Denies pruritus, Denies rash Neurological: Denies numbness, Denies weakness Psychiatric: Denies anxiety, Denies depression Endocrine: Denies fatigue, Denies weight change Past Medical History Past Medical History: Atrial Fibrillation, Heart Failure, COPD, Diabetes Mellitus, GERD/Reflux, Hyperlipidemia, Hypertension, Neurologic Disorder, Osteoarthritis (OA), Sleep Apnea/CPAP/BIPAP Additional Past Medical History / Comment(s): NIDDM, bilateral lower leg and feet neuropathy, gout-travels everywhere per pt History of Any Multi-Drug Resistant Organisms: MRSA Date of last positivie culture/infection: 2005 or 2007 per pt-tx while pt lived in [place] MDRO Source:: Low back Past Surgical History: Adenoidectomy, Tonsillectomy Additional Past Surgical History / Comment(s): 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 Past Anesthesia/Blood Transfusion Reactions: No Reported Reaction Past Psychological History: No Psychological Hx Reported, Anxiety Additional Psychological History / Comment(s): Pt resides alone. He uses a cane at times but uses a electric wheelchair more often. He drives. Smoking Status: Former smoker Past Alcohol Use History: Rare Additional Past Alcohol Use History / Comment(s): Pt started smoking in 1971 and quit in 1999. He was a pack and a half to two ppd smoker. Past Drug Use History: Marijuana - Past Family History Father Family Medical History: Coronary Artery Disease (CAD), Diabetes Mellitus Additional Family Medical History / Comment(s): Father had heart disease. He at age 74 of possible a RI-pt not sure. Mother Family Medical History: Congestive Heart Failure (CHF), COPD, Coronary Artery Disease (CAD) Additional Family Medical History / Comment(s): Mother had heart problems. She at age 72 yrs. She had osteoporosis. Brother(s) Family Medical History: No Reported History Sister(s) Family Medical History: Diabetes Mellitus Daughter(s) Family Medical History: No Reported History Son(s) Family Medical History: No Reported History Medications and Allergies Home Medications Medication Instructions Recorded Confirmed Type Allopurinol [Zyloprim] 100 mg PO BID 02/10/16 08/02/19 History Dabigatran [Pradaxa] 150 mg PO BID 02/10/16 08/02/19 History Fluticasone/Salmeterol [Advair 1 puff INHALATION RT-BID 02/10/16 08/02/19 History 250-50 Diskus] Furosemide [Lasix] 80 mg PO BID 02/10/16 08/02/19 History Simvastatin [Zocor] 20 mg PO HS 02/10/16 08/02/19 History Digoxin [Lanoxin] 125 mcg PO DAILY 02/11/16 08/02/19 History glipiZIDE [Glucotrol] 5 mg PO DAILY 02/11/16 08/02/19 History clonazePAM [KlonoPIN] 1 mg PO BID #60 tab 04/14/18 08/02/19 Rx Ammonium Lactate Lotion 1 applic TOPICAL BID PRN 02/03/19 08/02/19 History [Lac-Hydrin 12% Lotion] Aspirin [Adult Low Dose Aspirin EC] 81 mg PO DAILY 02/03/19 08/02/19 History Cholecalciferol (Vitamin D3) 2,000 unit PO DAILY 02/03/19 08/02/19 History [Vitamin D3] Docusate [Colace] 100 mg PO BID 02/03/19 08/02/19 History Metolazone [Zaroxolyn] 5 mg PO Q48H 02/03/19 08/02/19 History Miconazole Nitrate [Miconazole 1 applic TOPICAL DAILY PRN 02/03/19 08/02/19 History Nitrate 2%] Pregabalin [Lyrica] 75 mg PO BID 02/03/19 08/02/19 History traZODone HCL 50 mg PO HS 02/03/19 08/02/19 History Ipratropium-Albuterol Nebulize 3 ml INHALATION RT-QID PRN 08/02/19 08/02/19 History [Duoneb 0.5 mg-3 mg/3 ml Soln] Metoprolol Succinate [Toprol XL] 150 mg PO DAILY 08/02/19 08/02/19 History Omeprazole [PriLOSEC] 40 mg PO BID 08/02/19 08/02/19 History Spironolactone 25 mg PO DAILY 08/02/19 08/02/19 History Torsemide [Demadex] 40 mg PO DAILY 08/02/19 08/02/19 History Cephalexin [Keflex] 1,000 mg PO Q6HR 08/03/19 08/03/19 History Sulfamethox-Tmp 800-160Mg [Bactrim 2 tab PO Q12HR 08/03/19 08/03/19 History DS 800-160 mg] Allergies Allergy/AdvReac Type Severity Reaction Status Date / Time No Known Allergies Allergy Verified 08/02/19 16:01 Physical Exam Vitals: Vital Signs Temp Pulse Pulse Resp BP BP BP 08/03/19 15:34 98.5 F 105 H 16 114/66 08/03/19 11:54 96 08/03/19 11:50 100 08/03/19 11:33 97.1 F L 100 16 99/57 08/03/19 08:18 108 H 08/03/19 08:08 96 08/03/19 08:00 97.5 F L 95 17 110/83 08/03/19 04:00 100 18 111/64 08/03/19 03:04 08/03/19 00:00 17 08/02/19 23:31 17 08/02/19 23:24 98.2 F 104 H 16 132/80 08/02/19 20:15 98 F 89 18 129/82 08/02/19 19:48 122 H 08/02/19 19:36 120 H 08/02/19 19:08 112 H 22 138/96 08/02/19 18:00 103 H 16 138/71 08/02/19 16:22 103 H 18 135/83 Pulse Ox 08/03/19 15:34 92 L 08/03/19 11:54 08/03/19 11:50 08/03/19 11:33 96 08/03/19 08:18 08/03/19 08:08 08/03/19 08:00 95 08/03/19 04:00 95 08/03/19 03:04 93 L 08/03/19 00:00 08/02/19 23:31 08/02/19 23:24 97 08/02/19 20:15 95 08/02/19 19:48 08/02/19 19:36 08/02/19 19:08 94 L 08/02/19 18:00 95 08/02/19 16:22 93 L Intake and Output 08/03/19 08/03/19 08/03/19 06:59 14:59 22:59 Intake Total 600 Output Total 1400 1250 Balance -1400 600 -1250 Intake: Oral 600 Output: Urine 1400 1250 Other: Voiding Method Indwelling Catheter Indwelling Catheter # Bowel Movements 1 Weight 221 kg GENERAL EXAM: Alert, pleasant, 58-year-old obese white male currently on 2 L of oxygen off BiPAP support, comfortable in no apparent distress. HEAD: Normocephalic/atraumatic. EYES: Normal reaction of pupils, equal size. Conjunctiva pink, sclera white. NOSE: Clear with pink turbinates. THROAT: No erythema or exudates. NECK: No masses, no JVD, no thyroid enlargement, no adenopathy. CHEST: No chest wall deformity. Symmetrical expansion. LUNGS: Equal air entry with no crackles, wheeze, rhonchi or dullness. CVS: Regular rate and rhythm, normal S1 and S2, no gallops, no murmurs, no rubs ABDOMEN: Soft, nontender. No hepatosplenomegaly, normal bowel sounds, no guarding or rigidity. Abdomen is obese, with some abdominal wall edema, and some slight erythema, but no weeping EXTREMITIES: No clubbing, 2+ edema, no cyanosis, 2+ pulses and upper and lower extremities. MUSCULOSKELETAL: Muscle strength and tone normal. SPINE: No scoliosis or deformity SKIN: No rashes CENTRAL NERVOUS SYSTEM: Alert and oriented -3. No focal deficits, tone is normal in all 4 extremities. PSYCHIATRIC: Alert and oriented -3. Appropriate affect. Intact judgment and insight. Results - Laboratory Findings CBC and BMP: 08/03/19 04:40 08/03/19 04:40 ABG ABG pH 7.32 (7.35-7.45) L 08/02/19 19:34 ABG pCO2 83 mmHg (35-45) H* 08/02/19 19:34 ABG pO2 71 mmHg (83-108) L 08/02/19 19:34 ABG O2 Saturation 92.1 % (94-97) L 08/02/19 19:34 PT/INR, D-dimer PT 12.3 sec (9.0-12.0) H 08/02/19 15:52 INR 1.2 (<1.2) H 08/02/19 15:52 Abnormal lab findings: Abnormal Labs 08/02/19 08/02/19 08/02/19 15:52 15:52 15:52 RBC 3.59 L Hgb 9.4 L Hct 31.5 L MCHC 29.7 L RDW 16.8 H Lymphocytes # Lymphocytes # (Manual) 0.21 L PT 12.3 H INR 1.2 H APTT 35.5 H ABG pH ABG pCO2 ABG pO2 ABG HCO3 ABG Total CO2 ABG O2 Saturation Sodium 136 L Potassium 5.8 H Chloride 90 L Carbon Dioxide 39 H BUN 77 H Creatinine 3.39 H Glucose 118 H POC Glucose (mg/dL) Troponin I Albumin 3.4 L Urine Protein Amorphous Sediment Hyaline Casts Urine Mucus U Benzodiazepines Scrn 08/02/19 08/02/19 08/02/19 15:52 16:44 17:29 RBC Hgb Hct MCHC RDW Lymphocytes # Lymphocytes # (Manual) PT INR APTT ABG pH ABG pCO2 ABG pO2 ABG HCO3 ABG Total CO2 ABG O2 Saturation Sodium Potassium Chloride Carbon Dioxide BUN Creatinine Glucose POC Glucose (mg/dL) 125 H Troponin I 0.091 H* Albumin Urine Protein 1+ H Amorphous Sediment Occasional H Hyaline Casts 7 H Urine Mucus Occasional H U Benzodiazepines Scrn Detected H 08/02/19 08/02/19 08/03/19 19:34 23:14 04:40 RBC 3.30 L Hgb 8.9 L Hct 28.7 L MCHC RDW 16.3 H Lymphocytes # 0.6 L Lymphocytes # (Manual) PT INR APTT ABG pH 7.32 L ABG pCO2 83 H* ABG pO2 71 L ABG HCO3 43 H* ABG Total CO2 45 H ABG O2 Saturation 92.1 L Sodium Potassium Chloride Carbon Dioxide BUN Creatinine Glucose POC Glucose (mg/dL) Troponin I 0.103 H* Albumin Urine Protein Amorphous Sediment Hyaline Casts Urine Mucus U Benzodiazepines Scrn 08/03/19 08/03/19 04:40 04:40 RBC Hgb Hct MCHC RDW Lymphocytes # Lymphocytes # (Manual) PT INR APTT ABG pH ABG pCO2 ABG pO2 ABG HCO3 ABG Total CO2 ABG O2 Saturation Sodium Potassium Chloride 90 L Carbon Dioxide 42 H* BUN 76 H Creatinine 3.11 H Glucose POC Glucose (mg/dL) Troponin I 0.101 H* Albumin Urine Protein Amorphous Sediment Hyaline Casts Urine Mucus U Benzodiazepines Scrn - Diagnostic Findings Chest x-ray: report reviewed, image reviewed Additional studies: Brain CT negative Assessment and Plan Plan: Assessment: #1. Acute on chronic hypercapnic and hypoxemic respiratory failure related to acute exacerbation of chronic congestive heart failure with preserved EF #2. COPD, on home oxygen, baseline FEV1 is unknown #3. Mild hyperkalemia, treated, and improved #4. Positive troponins, could be related to hypoxemia and CHF, patient denied any chest pain, EKG showed A. fib with a rate of 109, without acute ischemic changes #5. Chronic A. fib on Pradaxa #6. Morbid obesity status post bariatric surgery #7. Diabetes mellitus type 2 with neuropathy #8. Obstructive sleep apnea on home BiPAP #9. Hypertension #10. Hyperlipidemia #11. Former smoker #12. Previous MRSA infection Plan: Patient is currently on Lasix infusion, continue with BiPAP support at bedtime and as needed during the day, which are for increased confusion and lethargy, blood gases have been noted, patient has acute on chronic component of hyp ercapnic respiratory failure related to underlying COPD, CHF, and obstructive sleep apnea. He is already starting to respond to medical therapy, he is awake and alert, he denies any chest pain, he is on oral anticoagulation, monitor daily labs, electrolytes and renal profile, acute I know's, and daily weights. I performed a history & physical examination of the patient and discussed their management with my nurse practitioner, Sia Torres. I reviewed the nurse practitioner's note and agree with the documented findings and plan of care. Lung sounds are positive for diminished breath sounds. The findings and the impression was discussed with the patient. I attest to the documentation by the nurse practitioner. Time with Patient: Greater than 30
--- NOTE | 2019-08-03 16:06 | P.CRDCN ---
History of Present Illness Consult date: 08/03/19 Requesting physician: Ney Jenkins Chief complaint: Mental status changes and shortness of breath History of present illness: This is a 58-year-old gentleman with past medical history significant for hypertension, lipidemia, morbid obesity, chronic renal failure, obstructive sleep apnea, obesity hypoventilation syndrome, persistent atrial fibrillation, diastolic congestive heart failure, diabetes, diabetic polyneuropathy, chronic bilateral lower extremity discoloration, evidence of venous stasis and ulcer ations. He presents to the hospital on this occasion with symptoms of mental status changes with associated shortness of breath. His EKG on presentation here showed atrial fibrillation with a moderately rapid ventricular response. CAT scan of the brain was performed which came back to be negative. Chest x-ray showed some mild atelectasis at the right lung base, mild pulmonary congestion increased slightly as compared with prior exam. I pressure 114/60 with a heart rate in the 90s to low 100s, 92% on 4 L of oxygen. White blood cell count 7.1 on admission, 5.5 this morning, hemoglobin 9.4 on admission, he 0.9 this morning. Platelet count 247, 248 this morning. ABGs were performed on arrival here, pH 7.3, pCO2 83, pO2 71, HCO3 43 total CO2 45 and oxygen saturation 92.1. Sodium 136, potassium 5.8, BUN 77, creatinine 3.3. Plasma lactic acid 1.2. Troponins 0.09, 0.10, 0.10. It is noted on patient's recent admission that his troponins were also abnormal within the same range. BNP level 3500. Drug screen positive for benzodiazepines. At the time of our examination, patient still complained of feeling quite short of breath, he has significant swelling at his upper pubic area. Past Medical History Past Medical History: Atrial Fibrillation, Heart Failure, COPD, Diabetes Mellitus, GERD/Reflux, Hyperlipidemia, Hypertension, Neurologic Disorder, Osteoarthritis (OA), Sleep Apnea/CPAP/BIPAP Additional Past Medical History / Comment(s): NIDDM, bilateral lower leg and feet neuropathy, gout-travels everywhere per pt History of Any Multi-Drug Resistant Organisms: MRSA Date of last positivie culture/infection: 2005 or 2007 per pt-tx while pt lived in [place] MDRO Source:: Low back Past Surgical History: Adenoidectomy, Tonsillectomy Additional Past Surgical History / Comment(s): Pyloric stenosis when he was an , bilateral knee arthroscopies, 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 Past Anesthesia/Blood Transfusion Reactions: No Reported Reaction Past Psychological History: No Psychological Hx Reported, Anxiety Additional Psychological History / Comment(s): Pt resides alone. He uses a cane at times but uses a electric wheelchair more often. He drives. Smoking Status: Former smoker Past Alcohol Use History: Rare Additional Past Alcohol Use History / Comment(s): Pt started smoking in 1971 and quit in 1999. He was a pack and a half to two ppd smoker. Past Drug Use History: Marijuana - Past Family History Father Family Medical History: Coronary Artery Disease (CAD), Diabetes Mellitus Additional Family Medical History / Comment(s): Father had heart disease. He at age 74 of possible a [place]-pt not sure. Mother Family Medical History: Congestive Heart Failure (CHF), COPD, Coronary Artery Disease (CAD) Additional Family Medical History / Comment(s): Mother had heart problems. She at age 72 yrs. She had osteoporosis. Brother(s) Family Medical History: No Reported History Sister(s) Family Medical History: Diabetes Mellitus Daughter(s) Family Medical History: No Reported History Son(s) Family Medical History: No Reported History Medications and Allergies Home Medications Medication Instructions Recorded Confirmed Type Allopurinol [Zyloprim] 100 mg PO BID 02/10/16 08/02/19 History Dabigatran [Pradaxa] 150 mg PO BID 02/10/16 08/02/19 History Fluticasone/Salmeterol [Advair 1 puff INHALATION RT-BID 02/10/16 08/02/19 History 250-50 Diskus] Furosemide [Lasix] 80 mg PO BID 02/10/16 08/02/19 History Simvastatin [Zocor] 20 mg PO HS 02/10/16 08/02/19 History Digoxin [Lanoxin] 125 mcg PO DAILY 02/11/16 08/02/19 History glipiZIDE [Glucotrol] 5 mg PO DAILY 02/11/16 08/02/19 History clonazePAM [KlonoPIN] 1 mg PO BID #60 tab 04/14/18 08/02/19 Rx Ammonium Lactate Lotion 1 applic TOPICAL BID PRN 02/03/19 08/02/19 History [Lac-Hydrin 12% Lotion] Aspirin [Adult Low Dose Aspirin EC] 81 mg PO DAILY 02/03/19 08/02/19 History Cholecalciferol (Vitamin D3) 2,000 unit PO DAILY 02/03/19 08/02/19 History [Vitamin D3] Docusate [Colace] 100 mg PO BID 02/03/19 08/02/19 History Metolazone [Zaroxolyn] 5 mg PO Q48H 02/03/19 08/02/19 History Miconazole Nitrate [Miconazole 1 applic TOPICAL DAILY PRN 02/03/19 08/02/19 Hist ory Nitrate 2%] Pregabalin [Lyrica] 75 mg PO BID 02/03/19 08/02/19 History traZODone HCL 50 mg PO HS 02/03/19 08/02/19 History Ipratropium-Albuterol Nebulize 3 ml INHALATION RT-QID PRN 08/02/19 08/02/19 History [Duoneb 0.5 mg-3 mg/3 ml Soln] Metoprolol Succinate [Toprol XL] 150 mg PO DAILY 08/02/19 08/02/19 History Omeprazole [PriLOSEC] 40 mg PO BID 08/02/19 08/02/19 History Spironolactone 25 mg PO DAILY 08/02/19 08/02/19 History Torsemide [Demadex] 40 mg PO DAILY 08/02/19 08/02/19 History Cephalexin [Keflex] 1,000 mg PO Q6HR 08/03/19 08/03/19 History Sulfamethox-Tmp 800-160Mg [Bactrim 2 tab PO Q12HR 08/03/19 08/03/19 History DS 800-160 mg] Allergies Allergy/AdvReac Type Severity Reaction Status Date / Time No Known Allergies Allergy Verified 08/02/19 16:01 Physical Exam Vitals: Vital Signs Temp Pulse Pulse Resp BP BP BP 08/03/19 15:34 98.5 F 105 H 16 114/66 08/03/19 11:54 96 08/03/19 11:50 100 08/03/19 11:33 97.1 F L 100 16 99/57 08/03/19 08:18 108 H 08/03/19 08:08 96 08/03/19 08:00 97.5 F L 95 17 110/83 08/03/19 04:00 100 18 111/64 08/03/19 03:04 08/03/19 00:00 17 08/02/19 23:31 17 08/02/19 23:24 98.2 F 104 H 16 132/80 08/02/19 20:15 98 F 89 18 129/82 08/02/19 19:48 122 H 08/02/19 19:36 120 H 08/02/19 19:08 112 H 22 138/96 08/02/19 18:00 103 H 16 138/71 08/02/19 16:22 103 H 18 135/83 Pulse Ox 08/03/19 15:34 92 L 08/03/19 11:54 08/03/19 11:50 08/03/19 11:33 96 08/03/19 08:18 08/03/19 08:08 08/03/19 08:00 95 08/03/19 04:00 95 08/03/19 03:04 93 L 08/03/19 00:00 08/02/19 23:31 08/02/19 23:24 97 08/02/19 20:15 95 08/02/19 19:48 08/02/19 19:36 08/02/19 19:08 94 L 08/02/19 18:00 95 08/02/19 16:22 93 L Intake and Output 08/03/19 08/03/19 08/03/19 06:59 14:59 22:59 Intake Total 600 Output Total 1400 Balance -1400 600 Intake: Oral 600 Output: Urine 1400 Other: Voiding Method Indwelling Catheter Indwelling Catheter # Bowel Movements 1 Weight 221 kg PHYSICAL EXAMINATION: GENERAL: 58-year-old gentleman in no acute distress at the time of my examination HEENT: Head is atraumatic, normocephalic. Pupils equal, round. Sclera anicteric. Conjunctiva are clear. Mucous membranes of the mouth are moist. Neck is supple. There is no elevated jugular venous pressure. No carotid bruit is heard. HEART EXAMINATION: Heart S1 and S2 irregularly irregular a systolic murmur is heard CHEST EXAMINATION: Lungs reveal diminished air entry bilaterally, crackles heard to the bases. ABDOMEN: [ Soft, obese, nontender. Bowel sounds are heard. Significant fat in swelling noted at the upper pubic area EXTREMITIES: 1+ peripheral pulses with 3+ evidence of peripheral edema, evidence of chronic venous stasis and discoloration. NEUROLOGIC patient is awake, alert and oriented X3. . Results 08/03/19 04:40 08/03/19 04:40 Cardiac Enzymes 08/02/19 08/02/19 08/02/19 Range/Units 15:52 15:52 23:14 AST 30 (17-59) U/L Troponin I 0.091 H* 0.103 H* (0.000-0.034) ng/mL 08/03/19 Range/Units 04:40 AST (17-59) U/L Troponin I 0.101 H* (0.000-0.034) ng/mL Coagulation 08/02/19 Range/Units 15:52 PT 12.3 H (9.0-12.0) sec APTT 35.5 H (22.0-30.0) sec CBC 08/02/19 08/03/19 Range/Units 15:52 04:40 WBC 7.1 5.5 (3.8-10.6) k/uL RBC 3.59 L 3.30 L (4.30-5.90) m/uL Hgb 9.4 L 8.9 L (13.0-17.5) gm/dL Hct 31.5 L 28.7 L (39.0-53.0) % Plt Count 247 248 (150-450) k/uL Comprehensive Metabolic Panel 08/02/19 08/03/19 Range/Units 15:52 04:40 Sodium 136 L 139 (137-145) mmol/L Potassium 5.8 H 4.9 (3.5-5.1) mmol/L Chloride 90 L 90 L (98-107) mmol/L Carbon Dioxide 39 H 42 H* (22-30) mmol/L BUN 77 H 76 H (9-20) mg/dL Creatinine 3.39 H 3.11 H (0.66-1.25) mg/dL Glucose 118 H 95 (74-99) mg/dL Calcium 8.8 9.0 (8.4-10.2) mg/dL AST 30 (17-59) U/L ALT 23 (21-72) U/L Alkaline Phosphatase 67 (38-126) U/L Total Protein 6.3 (6.3-8.2) g/dL Albumin 3.4 L (3.5-5.0) g/dL Current Medications Generic Name Dose Route Start Last Admin Trade Name Freq PRN Reason Stop Dose Admin Albuterol/Ipratropium 3 ml 08/03/19 00:07 08/03/19 11:49 Duoneb 0.5 Mg-3 Mg/3 Ml Soln INHALATION 3 ml RT-QID PRN Administration Shortness Of Breath Or Wheezing Allopurinol 100 mg 08/03/19 00:30 08/03/19 09:27 Zyloprim PO 100 mg BID NIKA Administration Aspirin 81 mg 08/03/19 09:00 08/03/19 09:27 Aspirin PO 81 mg DAILY NIKA Administration Atorvastatin Calcium 10 mg 08/03/19 00:30 08/03/19 00:45 Lipitor PO 10 mg HS NIKA Administration Budesonide/Formoterol Fumarate 2 puff 08/03/19 08:00 08/03/19 08:08 Symbicort 80-4.5 Mcg Inhaler INHALATION 2 puff RT-BID NIKA Administration Cephalexin 1,000 mg 08/03/19 18:00 08/03/19 15:37 Keflex PO 1,000 mg Q6HR NIKA Administration Cholecalciferol 2,000 unit 08/03/19 09:00 08/03/19 09:26 Vitamin D3 (25 Mcg = 1000 Iu) PO 2,000 unit DAILY NIKA Administration Clonazepam 1 mg 08/03/19 09:00 08/03/19 09:27 Klonopin PO 1 mg BID NIKA Administration Dabigatran 150 mg 08/03/19 00:30 08/03/19 09:30 Pradaxa PO 150 mg BID NIKA Administration Digoxin 125 mcg 08/03/19 09:00 08/03/19 09:26 Lanoxin PO 125 mcg DAILY NIKA Administration Docusate Sodium 100 mg 08/03/19 00:30 08/03/19 09:26 Colace PO 100 mg BID NIKA Administration Glipizide 5 mg 08/03/19 09:00 08/03/19 09:27 Glucotrol PO 5 mg DAILY NIKA Administration Furosemide 100 mg/ Sodium 100 mls @ 10 mls/hr 08/03/19 14:00 08/03/19 14:44 Chloride IV 10 mg/hr .Q10H NIKA 10 mls/hr Administration Protocol 10 MG/HR Lactic Acid 1 applic 08/03/19 09:00 Lac-Hydrin 12% TOPICAL BID PRN Dry Skin Metolazone 5 mg 08/03/19 00:30 08/03/19 00:48 Zaroxolyn PO Not Given Q48H NIKA Metoprolol Succinate 150 mg 08/03/19 00:30 08/03/19 15:37 Toprol Xl PO 150 mg DAILY NIKA Administration Miconazole Nitrate 1 applic 08/03/19 09:00 Monistat-Derm TOPICAL DAILY PRN YEAST INFECTION Pantoprazole Sodium 40 mg 08/03/19 09:00 08/03/19 09:26 Protonix PO 40 mg BID NIKA Administration Pregabalin 75 mg 08/03/19 00:30 08/03/19 09:26 Lyrica PO 75 mg BID NIKA Administration Spironolactone 25 mg 08/03/19 09:00 08/03/19 12:15 Aldactone PO Not Given DAILY NIKA Trazodone HCl 50 mg 08/03/19 00:30 08/03/19 00:45 Desyrel PO 50 mg HS NIKA Administration Intake and Output 08/03/19 08/03/19 08/03/19 06:59 14:59 22:59 Intake Total 600 Output Total 1400 Balance -1400 600 Intake: Oral 600 Output: Urine 1400 Other: Voiding Method Indwelling Catheter Indwelling Catheter # Bowel Movements 1 Weight 221 kg 08/03/19 04:40 08/03/19 04:40 EKG Interpretations (text) EKG shows atrial fibrillation with fairly rapid ventricular response Assessment and Plan Plan: Assessment and plan #1 diastolic congestive heart failure acute on chronic #2 cor pulmonale and severe pulmonary hypertension #3 chronic persistent atrial fibrillation #4 obesity with obstructive sleep apnea #5 hyperlipidemia 36 hypertension #7 bilateral lower extremity discoloration chronic #8 diabetes #9 COPD with possible exacerbation #10 acute on chronic renal failure Plan Patient had an echocardiogram with Doppler study performed in January which revealed an ejection fraction of 60-65% with basal inferior and inferior septal hypokinesia. LA is severely dilated. Mild to moderate tricuspid regurg with moderate pulmonary hypertension. We will repeat an echo on this admission as well. If it is okay from nephrology standpoint we would recommend to start the patient on IV Lasix drip. Continue beta shell and Aldactone. Monitor intake and output along with daily weights and daily lytes BUN and creatinine. DNP note has been reviewed, I agree with a documented findings and plan of care. Patient was seen and examined.
[2019-08-03 16:58] LABS: Glucose,Whole Blood 80 mg/dL (75-99)
--- NOTE | 2019-08-03 18:59 | CONS ---
CONSULTATION REASON FOR CONSULT: Renal failure. HISTORY OF PRESENT ILLNESS: The patient is a 58-year-old male who has a history of type 2 diabetes, atrial fibrillation, COPD, hypertension. The patient was admitted to the hospital with complaints of confusion. He said he was very weak and was not able to see properly. He did have some complaints of shortness of breath as well. He is maintained on home oxygen. No significant urinary symptoms. The patient has a Mccloud catheter placed and I do note that we have 1400 mL of urine noted. I am not sure if this was obtained on initial Mccloud catheter placement. Blood pressure has been low with systolic around 110- 114. The patient denies use of any nonsteroidal anti-inflammatory agents at home. He is maintained on oral Lasix. I do see Bactrim on his med list. Chest x-ray shows pulmonary vascular congestion. Currently maintained on Lasix IV 40 mg q.12 hours. PAST MEDICAL HISTORY: Obesity, type 2 diabetes, hypertension, COPD, hyperlipidemia, atrial fibrillation, gastroesophageal reflux disease, obstructive sleep apnea, neuropathy, history of MRSA foot infection. PAST SURGICAL HISTORY: Adenoidectomy, tonsillectomy, pyloric stenosis during infancy, bilateral knee arthroscopies. SOCIAL HISTORY: Patient is a former smoker. He did use marijuana. No history of alcohol abuse. MEDICATIONS: Medications prior to admission included Zyloprim, Pradaxa, Advair, Lasix, Zocor, digoxin, Glucotrol, vitamin D3, Colace, Zaroxolyn, Lyrica, Prilosec, spironolactone, Demadex, Klonopin, Bactrim. ALLERGIES: None. REVIEW OF SYSTEMS: As per HPI. Other systems negative. EXAMINATION: Patient is awake, comfortable. He is not in any acute distress. Blood pressure this morning was 110/83, heart rate of 100 per minute. He is afebrile. Examination of the heart S1, S2. Examination of the lungs, bilateral breath sounds are heard. Abdomen is soft, nontender. Examination of lower extremities shows chronic skin changes. Chronic edema is noted. [employer] exam grossly intact. LABS: Hemoglobin 8.9, white cell count 5.5, sodium 139, potassium 4.9, CO2 is 42, BUN 76. Serum creatinine 3.1. Troponin 0.101. UA shows 1+ protein, no blood or cells are seen. ASSESSMENT: 1. Acute kidney injury, possibly obstructive uropathy versus cardiorenal. No nephrotoxic agents on board. Okay to start Lasix drip for now. Repeat labs in a.m. 2. Metabolic alkalosis most likely compensatory as patient has significant elevation in his pCO2 on blood gases as well. If his alkalosis is worse, I will add Diamox. Otherwise, we will try to hold off on that given his significant respiratory acidosis. 3. Volume overload. Add Lasix. Check ejection fraction. 4. Anemia, rule out iron deficiency. No active bleeding noted at this time. 5. Obesity. 6. Obstructive sleep apnea. 7. History of atrial fibrillation maintained on Pradaxa. 8. Mild hyperkalemia, currently improved. Hold off on the Aldactone. PLAN: Okay to start Lasix drip repeat labs in a.m. Check echocardiogram. Check iron profile. Add Diamox if metabolic alkalosis is worse. Continue with the Mccloud catheter for now. Thank you for this consultation. We will continue to follow the patient with you during his hospitalization. MMODL / IJN: [id number] /
[2019-08-03 19:44] LABS: Glucose,Whole Blood 108 mg/dL (75-99)
--- NOTE | 2019-08-03 22:29 | P.HPIM ---
History of Present Illness H&P Date: 08/03/19 Chief Complaint: Short of breath History of presenting complaint: This is a 58-year-old patient who follows with visiting physicians Dr. Aramis Saleh. Her extensive medical history. Chronic stable medical conditions include atrial fibrillation, COPD, diabetes, GERD, hypertension, hyperlipidemia, Ana arthritis, obstructive sleep apnea, bilateral neuropathy. Patient n ormally uses a cane to get about. Lives alone. Patient's sister drops and to help about. Patient is morbidly obese with a BMI over 64. Patient's been becoming gradually short of breath for a few days with increasing lower extremity swelling and abdominal wall swelling 2. Slight cough. Appetite is okay. No change in bowel movement. No fever no chills. Patient also was being treated with Bactrim and Keflex appears for cellulitis. Patient is felt to have congestive heart failure. For strict I's and O's Mccloud catheter was placed. Does some blood in the Mccloud catheter. Consultations made to nephrology and cardio G. Denies any pain. Review of systems: GEN.: Tired EYES: None HEENT: None NECK: None RESPIRATORY: As above CARDIOVASCULAR: As above GASTROINTESTINAL: None GENITOURINARY: Mccloud catheter placed MUSCULOSKELETAL: None LYMPHATICS: None HEMATOLOGICAL: None PSYCHIATRY: Slightly anxious NEUROLOGICAL: None Social history: Lives alone. Has a cane. Also as electric wheelchair. Patient smoked for about 8 years stopped in 1999. Alcohol rarely. Did use marijuana. Physical examination: VITAL SIGNS: 98.4, 102, 20, 130/84, 95% on 4 L GENERAL: BMI 64.3, laying in bed, short of breath tired. EYES: Pupils equal. Conjunctiva normal. HEENT: External appearance of nose and ears normal, oral cavity grossly normal. NECK: Short, thick, JVD unable to assess; masses not palpable. HEART: Distant heart sounds,; edema present, but pendular lower abdomen. LUNGS: Respiratory rate increased, distance breath sounds. ABDOMEN: Soft, large, some evidence of fungal infection in the groin, nontender, liver spleen not palpable, no masses palpable. PSYCH: Alert and oriented x3; mood and affect normal. NEUROLOGICAL: Cranial nerves grossly intact; no facial asymmetry, power and sensation are decreased distally. LYMPHATICS: No lymph nodes palpable in the axilla and neck INVESTIGATIONS, reviewed in the clinical context: White count 7.1 hemoglobin 9.4 platelets 247 Potassium 5.8 BUN 77 creatinine 3.39 Creatinine January 2019 was 1.71 Troponin I 0.091 proBNP 3500 EKG tracing personally reviewed by me-atrial flutter fibrillation with rate of of 100 Chest x-ray film personally reviewed by me-cardiomegaly and pulmonary edema 2-D echocardiogram from January 2019-EF 60-65% with wall motion abnormality Assessment: -Acute on chronic congestive heart failure exacerbation from diastolic dysfunction EF 60-65% -Persistent atrial fibrillation rate uncontrolled on presentation -Acute renal failure possibly ATN multifactorial, including hypotension, not patient also is on Bactrim at home. Which has been discontinued. -Chronic kidney disease stage III probably nephrosclerosis -Morbid obesity BMI 64.3 -COPD -Diabetes mellitus type 2 -GERD -Hyperlipidemia -Essential hypertension -Chronic medical debility -Obstructive sleep apnea -Diabetic peripheral neuropathy -Traumatic hematuria from Mccloud catheter Plan: -Home medications resumed. Patient started on a Lasix drip. Accu-Cheks will be followed. Add Restoril closely followed. Consultations made to cardiology, nephrology. Strict I's and O's will be measured. Patient has some traumatic hematuria. Which is getting worse. We'll get a hematology opinion. Prognosis guarded. Patient is getting ` at home that'll be discontinued. We will use nystatin powder in the groin area. Past Medical History Past Medical History: Atrial Fibrillation, Heart Failure, COPD, Diabetes Mellitus, GERD/Reflux, Hyperlipidemia, Hypertension, Neurologic Disorder, Osteoarthritis (OA), Sleep Apnea/CPAP/BIPAP Additional Past Medical History / Comment(s): NIDDM, bilateral lower leg and feet neuropathy, gout-travels everywhere per pt History of Any Multi-Drug Resistant Organisms: MRSA Date of last positivie culture/infection: 2005 or 2007 per pt-tx while pt lived in [place] MDRO Source:: Low back Past Surgical History: Adenoidectomy, Tonsillectomy Additional Past Surgical History / Comment(s): 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 Past Anesthesia/Blood Transfusion Reactions: No Reported Reaction Past Psychological History: No Psychological Hx Reported, Anxiety Additional Psychological History / Comment(s): Pt resides alone. He uses a cane at times but uses a electric wheelchair more often. He drives. Smoking Status: Former smoker Past Alcohol Use History: Rare Additional Past Alcohol Use History / Comment(s): Pt started smoking in 1971 and quit in 1999. He was a pack and a half to two ppd smoker. Past Drug Use History: Marijuana - Past Family History Father Family Medical History: Coronary Artery Disease (CAD), Diabetes Mellitus Additional Family Medical History / Comment(s): Father had heart disease. He at age 74 of possible a [address]-pt not sure. Mother Family Medical History: Congestive Heart Failure (CHF), COPD, Coronary Artery Disease (CAD) Additional Family Medical History / Comment(s): Mother had heart problems. She at age 72 yrs. She had osteoporosis. Brother(s) Family Medical History: No Reported History Sister(s) Family Medical History: Diabetes Mellitus Daughter(s) Family Medical History: No Reported History Son(s) Family Medical History: No Reported History Medications and Allergies Home Medications Medication Instructions Recorded Confirmed Type Allopurinol [Zyloprim] 100 mg PO BID 02/10/16 08/02/19 History Dabigatran [Pradaxa] 150 mg PO BID 02/10/16 08/02/19 History Fluticasone/Salmeterol [Advair 1 puff INHALATION RT-BID 02/10/16 08/02/19 History 250-50 Diskus] Furosemide [Lasix] 80 mg PO BID 02/10/16 08/02/19 History Simvastatin [Zocor] 20 mg PO HS 02/10/16 08/02/19 History Digoxin [Lanoxin] 125 mcg PO DAILY 02/11/16 08/02/19 History glipiZIDE [Glucotrol] 5 mg PO DAILY 02/11/16 08/02/19 History clonazePAM [KlonoPIN] 1 mg PO BID #60 tab 04/14/18 08/02/19 Rx Ammonium Lactate Lotion 1 applic TOPICAL BID PRN 02/03/19 08/02/19 History [Lac-Hydrin 12% Lotion] Aspirin [Adult Low Dose Aspirin EC] 81 mg PO DAILY 02/03/19 08/02/19 History Cholecalciferol (Vitamin D3) 2,000 unit PO DAILY 02/03/19 08/02/19 History [Vitamin D3] Docusate [Colace] 100 mg PO BID 02/03/19 08/02/19 History Metolazone [Zaroxolyn] 5 mg PO Q48H 02/03/19 08/02/19 History Miconazole Nitrate [Miconazole 1 applic TOPICAL DAILY PRN 02/03/19 08/02/19 History Nitrate 2%] Pregabalin [Lyrica] 75 mg PO BID 02/03/19 08/02/19 History traZODone HCL 50 mg PO HS 02/03/19 08/02/19 History Ipratropium-Albuterol Nebulize 3 ml INHALATION RT-QID PRN 08/02/19 08/02/19 History [Duoneb 0.5 mg-3 mg/3 ml Soln] Metoprolol Succinate [Toprol XL] 150 mg PO DAILY 08/02/19 08/02/19 History Omeprazole [PriLOSEC] 40 mg PO BID 08/02/19 08/02/19 History Spironolactone 25 mg PO DAILY 08/02/19 08/02/19 History Torsemide [Demadex] 40 mg PO DAILY 08/02/19 08/02/19 History Cephalexin [Keflex] 1,000 mg PO Q6HR 08/03/19 08/03/19 History Sulfamethox-Tmp 800-160Mg [Bactrim 2 tab PO Q12HR 08/03/19 08/03/19 History DS 800-160 mg] Allergies Allergy/AdvReac Type Severity Reaction Status Date / Time No Known Allergies Allergy Verified 08/02/19 16:01 Physical Exam Vitals: Vital Signs Temp Pulse Pulse Resp BP BP BP 08/03/19 08:18 108 H 08/03/19 08:08 96 08/03/19 08:00 97.5 F L 95 17 110/83 08/03/19 04:00 100 18 111/64 08/03/19 03:04 08/03/19 00:00 17 08/02/19 23:31 17 08/02/19 23:24 98.2 F 104 H 16 132/80 08/02/19 20:15 98 F 89 18 129/82 08/02/19 19:48 122 H 08/02/19 19:36 120 H 08/02/19 19:08 112 H 22 138/96 08/02/19 18:00 103 H 16 138/71 08/02/19 16:22 103 H 18 135/83 08/02/19 14:50 98.4 F 102 H 20 130/84 Pulse Ox 08/03/19 08:18 08/03/19 08:08 08/03/19 08:00 95 08/03/19 04:00 95 08/03/19 03:04 93 L 08/03/19 00:00 08/02/19 23:31 08/02/19 23:24 97 08/02/19 20:15 95 08/02/19 19:48 08/02/19 19:36 08/02/19 19:08 94 L 08/02/19 18:00 95 08/02/19 16:22 93 L 08/02/19 14:50 95 Intake and Output 08/02/19 08/03/19 08/03/19 22:59 06:59 14:59 Intake Total 360 Output Total 1400 Balance -1400 360 Intake: Oral 360 Output: Urine 1400 Other: Voiding Method Indwelling Catheter # Voids 1 Weight 221 kg Results CBC & Chem 7: 08/03/19 04:40 08/03/19 04:40 Labs: Abnormal Lab Results - Last 24 Hours (Table) 08/02/19 08/02/19 08/02/19 Range/Units 15:52 15:52 15:52 RBC 3.59 L (4.30-5.90) m/uL Hgb 9.4 L (13.0-17.5) gm/dL Hct 31.5 L (39.0-53.0) % MCHC 29.7 L (31.0-37.0) g/dL RDW 16.8 H (11.5-15.5) % Lymphocytes # (1.0-4.8) k/uL Lymphocytes # (Manual) 0.21 L (1.0-4.8) k/uL PT 12.3 H (9.0-12.0) sec INR 1.2 H (<1.2) APTT 35.5 H (22.0-30.0) sec ABG pH (7.35-7.45) ABG pCO2 (35-45) mmHg ABG pO2 (83-108) mmHg ABG HCO3 (21-25) mmol/L ABG Total CO2 (19-24) mmol/L ABG O2 Saturation (94-97) % Sodium 136 L (137-145) mmol/L Potassium 5.8 H (3.5-5.1) mmol/L Chloride 90 L (98-107) mmol/L Carbon Dioxide 39 H (22-30) mmol/L BUN 77 H (9-20) mg/dL Creatinine 3.39 H (0.66-1.25) mg/dL Glucose 118 H (74-99) mg/dL POC Glucose (mg/dL) (75-99) mg/dL Troponin I (0.000-0.034) ng/mL Albumin 3.4 L (3.5-5.0) g/dL Urine Protein (Negative) Amorphous Sediment (None) /hpf Hyaline Casts (0-2) /lpf Urine Mucus (None) /hpf U Benzodiazepines Scrn (NotDetected) 08/02/19 08/02/19 08/02/19 Range/Units 15:52 16:44 17:29 RBC (4.30-5.90) m/uL Hgb (13.0-17.5) gm/dL Hct (39.0-53.0) % MCHC (31.0-37.0) g/dL RDW (11.5-15.5) % Lymphocytes # (1.0-4.8) k/uL Lymphocytes # (Manual) (1.0-4.8) k/uL PT (9.0-12.0) sec INR (<1.2) APTT (22.0-30.0) sec ABG pH (7.35-7.45) ABG pCO2 (35-45) mmHg ABG pO2 (83-108) mmHg ABG HCO3 (21-25) mmol/L ABG Total CO2 (19-24) mmol/L ABG O2 Saturation (94-97) % Sodium (137-145) mmol/L Potassium (3.5-5.1) mmol/L Chloride (98-107) mmol/L Carbon Dioxide (22-30) mmol/L BUN (9-20) mg/dL Creatinine (0.66-1.25) mg/dL Glucose (74-99) mg/dL POC Glucose (mg/dL) 125 H (75-99) mg/dL Troponin I 0.091 H* (0.000-0.034) ng/mL Albumin (3.5-5.0) g/dL Urine Protein 1+ H (Negative) Amorphous Sediment Occasional H (None) /hpf Hyaline Casts 7 H (0-2) /lpf Urine Mucus Occasional H (None) /hpf U Benzodiazepines Scrn Detected H (NotDetected) 08/02/19 08/02/19 08/03/19 Range/Units 19:34 23:14 04:40 RBC 3.30 L (4.30-5.90) m/uL Hgb 8.9 L (13.0-17.5) gm/dL Hct 28.7 L (39.0-53.0) % MCHC (31.0-37.0) g/dL RDW 16.3 H (11.5-15.5) % Lymphocytes # 0.6 L (1.0-4.8) k/uL Lymphocytes # (Manual) (1.0-4.8) k/uL PT (9.0-12.0) sec INR (<1.2) APTT (22.0-30.0) sec ABG pH 7.32 L (7.35-7.45) ABG pCO2 83 H* (35-45) mmHg ABG pO2 71 L (83-108) mmHg ABG HCO3 43 H* (21-25) mmol/L ABG Total CO2 45 H (19-24) mmol/L ABG O2 Saturation 92.1 L (94-97) % Sodium (137-145) mmol/L Potassium (3.5-5.1) mmol/L Chloride (98-107) mmol/L Carbon Dioxide (22-30) mmol/L BUN (9-20) mg/dL Creatinine (0.66-1.25) mg/dL Glucose (74-99) mg/dL POC Glucose (mg/dL) (75-99) mg/dL Troponin I 0.103 H* (0.000-0.034) ng/mL Albumin (3.5-5.0) g/dL Urine Protein (Negative) Amorphous Sediment (None) /hpf Hyaline Casts (0-2) /lpf Urine Mucus (None) /hpf U Benzodiazepines Scrn (NotDetected) 10/03/19 10/03/19 Range/Units 04:40 04:40 RBC (4.30-5.90) m/uL Hgb (13.0-17.5) gm/dL Hct (39.0-53.0) % MCHC (31.0-37.0) g/dL RDW (11.5-15.5) % Lymphocytes # (1.0-4.8) k/uL Lymphocytes # (Manual) (1.0-4.8) k/uL PT (9.0-12.0) sec INR (<1.2) APTT (22.0-30.0) sec ABG pH (7.35-7.45) ABG pCO2 (35-45) mmHg ABG pO2 (83-108) mmHg ABG HCO3 (21-25) mmol/L ABG Total CO2 (19-24) mmol/L ABG O2 Saturation (94-97) % Sodium (137-145) mmol/L Potassium (3.5-5.1) mmol/L Chloride 90 L (98-107) mmol/L Carbon Dioxide 42 H* (22-30) mmol/L BUN 76 H (9-20) mg/dL Creatinine 3.11 H (0.66-1.25) mg/dL Glucose (74-99) mg/dL POC Glucose (mg/dL) (75-99) mg/dL Troponin I 0.101 H* (0.000-0.034) ng/mL Albumin (3.5-5.0) g/dL Urine Protein (Negative) Amorphous Sediment (None) /hpf Hyaline Casts (0-2) /lpf Urine Mucus (None) /hpf U Benzodiazepines Scrn (NotDetected) Thrombosis Risk Factor Assmnt - Choose All That Apply Any of the Below Risk Factors Present?: Yes Each Factor Represents 1 point: Abnormal pulmonary function (COPD), Age 41-60 years, Medical pt on bed rest, Obesity (BMI >25) Other Risk Factors: No Thrombosis Risk Factor Assessment Total Risk Factor Score: 4 Thrombosis Risk Factor Assessment Level: Moderate Risk
[2019-08-04] MEDS: DOCUSATE 100 MG CAP PO SCH ×3 (00:07→20:06)
[2019-08-04] MEDS: FUROSEMIDE 100 MG in SODIUM CHLORIDE 0.9% 90 ML IV SCH ×3 (00:21→20:10)
[2019-08-04 06:29] LABS: Glucose,Whole Blood 109 mg/dL (75-99)
[2019-08-04] MEDS: CEPHALEXIN 500 MG CAP PO SCH ×4 (06:57→23:38)
[2019-08-04 07:45] LABS: Calcium 9.2 mg/dL (8.4-10.2); Magnesium 2.4 mg/dL (1.6-2.3); Potassium 4.5 mmol/L (3.5-5.1)
[2019-08-04] MEDS: SYMBICORT 80-4.5 MCG INHALER INHALATION SCH ×3 (07:48→19:31)
[2019-08-04] MEDS: IPRATROPIUM-ALBUTEROL 3 ML NEB INHALATION PRN (07:48)
[2019-08-04] MEDS: PANTOPRAZOLE 40 MG TABLET PO SCH ×2 (10:12→20:06)
[2019-08-04] MEDS: DIGOXIN 125 MCG TAB PO SCH (10:12)
[2019-08-04] MEDS: ASPIRIN 81 MG PO SCH (10:12)
[2019-08-04] MEDS: glipiZIDE 5 MG TAB PO SCH (10:12)
[2019-08-04] MEDS: clonazePAM 1 MG TAB PO SCH ×2 (10:12→20:06)
[2019-08-04] MEDS: CHOLECALCIFEROL 1,000 UNIT TAB PO SCH (10:12)
[2019-08-04] MEDS: PREGABALIN 75 MG CAP PO SCH ×2 (10:12→20:06)
[2019-08-04] MEDS: METOPROLOL TARTRATE 50 MG TAB PO SCH ×2 (10:12→20:06)
[2019-08-04] MEDS: SPIRONOLACTONE 25 MG TAB PO SCH (10:12)
[2019-08-04] MEDS: ALLOPURINOL 100 MG TAB PO SCH ×2 (10:13→20:05)
[2019-08-04] MEDS: ACETAMINOPHEN TAB 500 MG TAB PO PRN ×2 (10:22→19:08)
--- NOTE | 2019-08-04 12:01 | ECHOF ---
Referral Reason:chf MEASUREMENTS -------- HEIGHT: 185.4 cm WEIGHT: 220.9 kg BP: 114/66 RVIDd: 5.2 cm (< 3.3) IVSd: 1.9 cm (0.6 - 1.1) LVIDd: 4.7 cm (3.9 - 5.3) LVPWd: 2.2 cm (0.6 - 1.1) IVSs: 2.3 cm LVIDs: 3.4 cm LVPWs: 2.6 cm LAESV Index (A-L): 80.23 ml/m Ao Diam: 3.5 cm (2.0 - 3.7) AV Cusp: 7.2 cm (1.5 - 2.6) MV EXCURSION: 22.993 mm (> 18.000) MV EF SLOPE: 122 mm/s (70 - 150) EPSS: 0.9 cm RAP: 5.00 mmHg RVSP: 47.01 mmHg TAPSE: 17.18 mm FINDINGS -------- Undetermined rhythm. This was a technically adequate study. The left ventricular size is normal. There is severe concentric left ventricular hypertrophy. Ove rall left ventricular systolic function is low-normal with, an EF between 50 - 55 %. Increased Lap Grade II Diastolic Dysfunction. The right ventricle is severely enlarged. The right ventricular systolic function is mildly impaire d. LA is severely dilated >40 ml/m2 The right atrium is mildly enlarged. Interatrial and interventricular septum intact. There is no evidence of aortic regurgitation. There is no evidence of aortic stenosis. Mild mitral annular calcification present. Moderate mitral regurgitation is present. Moderate tricuspid regurgitation present. There is moderate pulmonary hypertension. The right laura tricular systolic pressure, as measured by Doppler, is 47.01mmHg. There is no pulmonic regurgitation present. The aortic root size is normal. IVC Not well visulized, due to Pt. Obesity. There is no pericardial effusion. CONCLUSIONS -------- 1. Undetermined rhythm. 2. This was a technically adequate study. 3. The left ventricular size is normal. 4. There is severe concentric left ventricular hypertrophy. 5. Overall left ventricular systolic function is low-normal with, an EF between 50 - 55 %. 6. Increased Lap Grade II Diastolic Dysfunction. 7. The right ventricle is severely enlarged. 8. The right ventricular systolic function is mildly impaired. 9. LA is severely dilated >40 ml/m2 10. The right atrium is mildly enlarged. 11. Interatrial and interventricular septum intact. 12. There is no evidence of aortic regurgitation. 13. There is no evidence of aortic stenosis. 14. Mild mitral annular calcification present. 15. Moderate mitral regurgitation is present. 16. Moderate tricuspid regurgitation present. 17. There is moderate pulmonary hypertension. 18. The right ventricular systolic pressure, as measured by Doppler, is 47.01mmHg. 19. There is no pulmonic regurgitation present. 20. The aortic root size is normal. 21. IVC Not well visulized, due to Pt. Obesity. 22. There is no pericardial effusion. SENIOR PRODUCT DEVELOPMENT SCIENTIST: Grecia Chi RDCS
[2019-08-04 12:02] LABS: Glucose,Whole Blood 91 mg/dL (75-99)
--- NOTE | 2019-08-04 12:30 | XR ---
EXAMINATION TYPE: XR chest 1V portable DATE OF EXAM: 08/04/2019 COMPARISON: 08/02/2019 HISTORY: Shortness of breath TECHNIQUE: Single frontal view of the chest is obtained. FINDINGS: Heart is enlarged. Subsegmental changes at the lung bases. No overt failure or pneumothora x. Exam limited due to patient rotation and artifact. IMPRESSION: Cardiomegaly with basilar subsegmental consolidation. Small pleural effusions not exclud ed correlate clinically.
[2019-08-04] MEDS: DABIGATRAN 75 MG CAP PO SCH ×2 (12:45→20:06)
--- NOTE | 2019-08-04 15:58 | P.PN ---
Subjective Progress Note Date: 08/04/19 Principal diagnosis: Acute on chronic hypercapnic and hypoxemic respiratory failure related to acute exacerbation of CHF with diastolic dysfunction This is a 58-year-old white male patient of Dr. Fry, with past medical history of morbid obesity status post bariatric surgery, diabetes mellitus, hypertension, hyperlipidemia, chronic congestive heart failure, chronic A. fib, former smoker, COPD, obstructive sleep apnea on BiPAP therapy, hypoxemic respiratory failure related to COPD and CHF. Patient presented to the emergency department on 08/02/2019 for evaluation of increasing shortness of breath, confusion, and patient was seeing things that were not there, seeing waves in the carpet, seeing people that were not there. In addition his vision was blurred, he thought he may have been related to low oxygen level, he does not have a pulse ox but he felt that his oxygen level was probably low especially with any exertion. He states he has been compliant with his medications, he is on maintenance dose Lasix at home, he is on oral anticoagulation for history of A. fib. He denied any fever or chills, he did notice some increasing shakes in his legs and body, but denied any chest pain. Patient lives by himself, but he states his diet is probably not very compliant with low-sodium. No fever or chills, he normally wears 4 L of oxygen at home, patient is not familiar with his BiPAP settings, but he states his been using it consistently. Chest x-ray was taken in the emergency department, showing some mild atelectasis at the right lung base, and mild pulmonary congestion slightly increased from prior exam. Blood gas was taken in the emergency department showing acute on chronic hypercapnic respiratory failure. White count was normal, sodium was 136, pot assium is 5.8, chloride was 90, CO2 was 39, BNP was elevated at 3500, troponin was 0.091, 0.103, 0.101. Drug screen was done showing benzodiazepines, urinalysis was unremarkable. Patient was then placed on BiPAP with pressures of 12 and 6, and FiO2 45%, became more arousable, he was started on Lasix drip, brain CT was negative. At time of my evaluation patient is awake and alert, he is on 2 L of oxygen, off the BiPAP support, breathing easier, continues on Lasix drip at 10 mg per hour On 08/04/2019 patient seen in follow-up on selective care unit, he continues to diurese, he is in -3 L over the last 24 hours, lower extremity edema is improving, breathing easier, today's Lasix drip has been cut down to 5 mg per hour, patient is less short of breath, he was actually able to get up and take a shower today, he is on BiPAP support at night, and during the day he is on 4 L of oxygen is pulse ox is 96%, no fever or chills, lung sounds reveal diminished breath sounds bilaterally, still has lower extremity edema and abdominal wall edema, but overall improved. No acute events overnight, no complaint of chest pain, cardiology is following, Objective - Vital Signs Vital signs: Vital Signs Temp 98 F 08/04/19 11:43 Pulse 86 08/04/19 11:43 Resp 14 08/04/19 11:43 BP 104/69 08/04/19 11:43 Pulse Ox 96 08/04/19 11:43 Intake & Output 08/03/19 08/04/19 08/04/19 18:59 06:59 18:59 Intake Total 1400 924.379 4829.833 Output Total 1250 4050 850 Balance 150 -3593.833 182.833 Weight 215.6 kg Intake: Intake, IV Titration 96.167 72.833 Amount Furosemide 100 mg In 96.167 72.833 Sodium Chloride 0.9% 90 ml @ 10 MG/HR 10 mls/hr IV .Q10H NIKA Rx#: [id number] Oral 1400 360 960 Output: Urine 1250 4050 850 Straight 1400 Other: Voiding Method Indwelling Catheter Indwelling Catheter Indwelling Catheter # Voids 1 # Bowel Movements 1 2 - Exam GENERAL EXAM: Alert, pleasant, 58-year-old obese white male currently on 2 L of oxygen off BiPAP support, comfortable in no apparent distress. HEAD: Normocephalic/atraumatic. EYES: Normal reaction of pupils, equal size. Conjunctiva pink, sclera white. NOSE: Clear with pink turbinates. THROAT: No erythema or exudates. NECK: No masses, no JVD, no thyroid enlargement, no adenopathy. CHEST: No chest wall deformity. Symmetrical expansion. LUNGS: Equal air entry with no crackles, wheeze, rhonchi or dullness. CVS: Regular rate and rhythm, normal S1 and S2, no gallops, no murmurs, no rubs ABDOMEN: Soft, nontender. No hepatosplenomegaly, normal bowel sounds, no guarding or rigidity. Abdomen is obese, with some abdominal wall edema, and some slight erythema, but no weeping EXTREMITIES: No clubbing, 2+ edema, no cyanosis, 2+ pulses and upper and lower extremities. MUSCULOSKELETAL: Muscle strength and tone normal. SPINE: No scoliosis or deformity SKIN: No rashes CENTRAL NERVOUS SYSTEM: Alert and oriented -3. No focal deficits, tone is normal in all 4 extremities. PSYCHIATRIC: Alert and oriented -3. Appropriate affect. Intact judgment and insight. - Labs CBC & Chem 7: 08/03/19 04:40 08/04/19 06:49 Labs: Abnormal Lab Results - Last 24 Hours (Table) 08/03/19 08/04/19 08/04/19 Range/Units 19:43 06:26 06:49 Chloride 90 L (98-107) mmol/L Carbon Dioxide 40 H (22-30) mmol/L BUN 77 H (9-20) mg/dL Creatinine 3.01 H (0.66-1.25) mg/dL POC Glucose (mg/dL) 108 H 109 H (75-99) mg/dL Magnesium 2.4 H (1.6-2.3) mg/dL Assessment and Plan Plan: Assessment: #1. Acute on chronic hypercapnic and hypoxemic respiratory failure related to acute exacerbation of chronic congestive heart failure with preserved EF #2. COPD, on home oxygen, baseline FEV1 is unknown #3. Mild hyperkalemia, treated, and improved #4. Positive troponins, could be related to hypoxemia and CHF, patient denied any chest pain, EKG showed A. fib with a rate of 109, without acute ischemic changes #5. Chronic A. fib on Pradaxa #6. Morbid obesity status post bariatric surgery #7. Diabetes mellitus type 2 with neuropathy #8. Obstructive sleep apnea on home BiPAP #9. Hypertension #10. Hyperlipidemia #11. Former smoker #12. Previous MRSA infection Plan: Continue with Lasix infusion, continue BiPAP support as needed, breathing is improving, increase activity as tolerated, today's chest x-ray has been reviewed, showing improved ration and small pleural effusions. Continue current plan of treatment, nephrology is following and managing the Lasix, clinically patient is improving. I performed a history & physical examination of the patient and discussed their management with my nurse practitioner, Sia Torres. I reviewed the nurse practitioner's note and agree with the documented findings and plan of care. Lung sounds are positive for diminished breath sounds. The findings and the impression was discussed with the patient. I attest to the documentation by the nurse practitioner. Time with Patient: Less than 30
[2019-08-04 17:46] LABS: Glucose,Whole Blood 66 mg/dL (75-99)
[2019-08-04 18:08] LABS: Glucose,Whole Blood 126 mg/dL (75-99)
[2019-08-04] MEDS: ATORVASTATIN 10 MG TAB PO SCH (20:06)
[2019-08-04] MEDS: traZODone HCL 50 MG TAB PO SCH (20:07)
[2019-08-04 20:12] LABS: Glucose,Whole Blood 79 mg/dL (75-99)
--- NOTE | 2019-08-04 22:43 | P.PN ---
Progress Note - Text Progress Note Date: 08/04/19 History of presenting complaint: This is a 58-year-old patient who follows with visiting physicians Dr. Aramis Saleh. Her extensive medical history. Chronic stable medical conditions include atrial fibrillation, COPD, diabetes, GERD, hypertension, hyperlipidemia, Ana arthritis, obstructive sleep apnea, bilateral neuropathy. Patient normally uses a cane to get about. Lives alone. Patient's sister drops and to help about. Patient is morbidly obese with a BMI over 64. Patient's been becoming gradually short of breath for a few days with increasing lower extremity swelling and abdominal wall swelling 2. Slight cough. Appetite is okay. No change in bowel movement. No fever no chills. Patient also was being treated with Bactrim and Keflex appears for cellulitis. Patient is felt to have congestive heart failure. For strict I's and O's Mccloud catheter was placed. Does some blood in the Mccloud catheter. Consultations made to nephrology and cardio G. Denies any pain. Patient admitted with-CHF exacerbation from diastolic dysfunction EF 60-65%, atrial fibrillation with a rapid ventricular rate, acute renal failure possibly ATN. Today-laying in bed. Breathing a bit better. Using BiPAP. On a Lasix drip. Decreased to 5 mg per hour. Good urine output. Some decrease in edema. Did eat his meal. Review of systems: Was done for constitutional, cardiovascular, GI, pulmonary. relevant finding as above Active Medications Acetaminophen (Tylenol Tab) 1,000 mg PO Q6HR PRN PRN Reason: Fever and/ or Pain Last Admin: 08/04/19 19:08 Dose: 1,000 mg Documented by: Albuterol/Ipratropium (Duoneb 0.5 Mg-3 Mg/3 Ml Soln) 3 ml INHALATION RT-QID PRN PRN Reason: Shortness Of Breath Or Wheezing Last Admin: 08/04/19 07:48 Dose: 3 ml Documented by: Allopurinol (Zyloprim) 100 mg PO BID [facility] Last Admin: 08/04/19 20:05 Dose: 100 mg Documented by: Aspirin (Aspirin) 81 mg PO DAILY [facility] Last Admin: 08/04/19 10:12 Dose: 81 mg Documented by: Atorvastatin Calcium (Lipitor) 10 mg PO HS [facility] Last Admin: 08/04/19 20:06 Dose: 10 mg Documented by: Budesonide/Formoterol Fumarate (Symbicort 80-4.5 Mcg Inhaler) 2 puff INHALATION RT-BID [facility] Last Admin: 08/04/19 19:31 Dose: 2 puff Documented by: Cephalexin (Keflex) 1,000 mg PO Q6HR [facility] Last Admin: 08/04/19 18:25 Dose: 1,000 mg Documented by: Cholecalciferol (Vitamin D3 (25 Mcg = 1000 Iu)) 2,000 unit PO DAILY [facility] Last Admin: 08/04/19 10:12 Dose: 2,000 unit Documented by: Clonazepam (Klonopin) 1 mg PO BID [facility] Last Admin: 08/04/19 20:06 Dose: 1 mg Documented by: Dabigatran (Pradaxa) 75 mg PO BID [facility] Last Admin: 08/04/19 20:06 Dose: 75 mg Documented by: Digoxin (Lanoxin) 125 mcg PO DAILY [facility] Last Admin: 08/04/19 10:12 Dose: 125 mcg Documented by: Docusate Sodium (Colace) 100 mg PO BID [facility] Last Admin: 08/04/19 20:06 Dose: Not Given Documented by: Furosemide 100 mg/ Sodium (Chloride) 100 mls @ 10 mls/hr IV .Q10H [facility]; Protocol Last Admin: 08/04/19 20:10 Dose: 5 mg/hr, 5 mls/hr Documented by: Lactic Acid (Lac-Hydrin 12%) 1 applic TOPICAL BID PRN PRN Reason: Dry Skin Last Admin: 08/04/19 10:11 Dose: 1 applic Documented by: Metolazone (Zaroxolyn) 5 mg PO Q48H [facility] Last Admin: 08/03/19 00:48 Dose: Not Given Documented by: Metoprolol Tartrate (Lopressor) 100 mg PO BID [facility] Last Admin: 08/04/19 20:06 Dose: 100 mg Documented by: Miconazole Nitrate (Monistat-Derm) 1 applic TOPICAL DAILY PRN PRN Reason: YEAST INFECTION Pantoprazole Sodium (Protonix) 40 mg PO BID [facility] Last Admin: 08/04/19 20:06 Dose: 40 mg Documented by: Pregabalin (Lyrica) 75 mg PO BID [facility] Last Admin: 08/04/19 20:06 Dose: 75 mg Documented by: Spironolactone (Aldactone) 25 mg PO DAILY [facility] Last Admin: 08/04/19 10:12 Dose: 25 mg Documented by: Trazodone HCl (Desyrel) 50 mg PO HS [facility] Last Admin: 08/04/19 20:07 Dose: 50 mg Documented by: Physical examination: VITAL SIGNS: 98.6, 92, 16, 100/63, 92% on 4 L GENERAL: Laying in bed, short of breath EYES: Pupils equal. Conjunctiva normal. HEENT: External appearance of nose and ears normal, oral cavity grossly normal. NECK: Short, thick, JVD unable to assess; masses not palpable. HEART: Distant heart sounds,; edema present, but pendular lower abdomen. LUNGS: Respiratory rate increased, distance breath sounds. ABDOMEN: Soft, large, some evidence of fungal infection in the groin, nontender, liver spleen not palpable, no masses palpable. PSYCH: Alert and oriented x3; mood and affect normal. NEUROLOGICAL: Cranial nerves grossly intact; no facial asymmetry, power and sensation are decreased distally. INVESTIGATIONS, reviewed in the clinical context: Potassium 4.5 bun 3077 creatinine 3.01 Accu-Cheks 91, 66 Admission testing: White count 7.1 hemoglobin 9.4 platelets 247 Potassium 5.8 BUN 77 creatinine 3.39 Creatinine January 2019 was 1.71 Troponin I 0.091 proBNP 3500 EKG tracing personally reviewed by me-atrial flutter fibrillation with rate of of 100 Chest x-ray film personally reviewed by me-cardiomegaly and pulmonary edema 2-D echocardiogram from January 2019-EF 60-65% with wall motion abnormality Assessment: -Acute on chronic congestive heart failure exacerbation from diastolic dysfunction EF 60-65%, slow to improve -Persistent atrial fibrillation rate uncontrolled on presentation -Acute renal failure possibly ATN multifactorial, including hypotension, patient also is on Bactrim at home. Which has been discontinued. Slow to improve -Chronic kidney disease stage III probably nephrosclerosis -Morbid obesity BMI 64.3 -COPD -Diabetes mellitus type 2, uncontrolled with hypoglycemia -GERD -Hyperlipidemia -Essential hypertension -Chronic medical debility -Obstructive sleep apnea -Diabetic peripheral neuropathy -Traumatic hematuria from Mccloud catheter Plan: Continue current medication treatment plan. Remains on Lasix drip. Care was discussed with the patient. Other medications to continue. We'll also add Diamox.
[2019-08-04] MEDS: acetaZOLAMIDE 250 MG TAB PO SCH (23:37)
[2019-08-04] MEDS: METOLAZONE 5 MG TAB PO SCH (23:37)
--- NOTE | 2019-08-05 01:05 | PN ---
PROGRESS NOTE Mr. Alfredo is a gentleman with history of morbid obesity, sleep apnea syndrome, chronic persistent atrial fibrillation, hypertension, hyperlipidemia and volume overload. He is on Lasix drip. He has had short runs of nonsustained v. tac. Potassium levels are acceptable. I am recommending we continue beta shell, metoprolol tartrate, ( ) succinate at 100 mg b.i.d. and decrease the ( ) to 75 mg b.i.d. in view of his renal failure. Vitals are stable. S1/S2 heard normally but distantly. Irregular rhythm noted. Lungs reveal diminished air entry. Abdomen and lower extremity exam unchanged. Overall prognosis remains poor. I will see the patient has needed. MMODL / IJN: [id number] /
[2019-08-05] MEDS: FUROSEMIDE 100 MG in SODIUM CHLORIDE 0.9% 90 ML IV SCH (05:30)
[2019-08-05] MEDS: CEPHALEXIN 500 MG CAP PO SCH ×2 (05:30→12:18)
[2019-08-05 05:31] LABS: Glucose,Whole Blood 84 mg/dL (75-99)
[2019-08-05 06:48] LABS: Glucose,Whole Blood 114 mg/dL (75-99)
[2019-08-05] MEDS: CHOLECALCIFEROL 1,000 UNIT TAB PO SCH (08:38)
[2019-08-05] MEDS: METOPROLOL TARTRATE 50 MG TAB PO SCH ×2 (08:38→20:18)
[2019-08-05] MEDS: acetaZOLAMIDE 250 MG TAB PO SCH ×2 (08:38→20:18)
[2019-08-05] MEDS: ALLOPURINOL 100 MG TAB PO SCH ×2 (08:38→20:18)
[2019-08-05] MEDS: clonazePAM 1 MG TAB PO SCH ×2 (08:38→20:18)
[2019-08-05] MEDS: ASPIRIN 81 MG PO SCH (08:38)
[2019-08-05] MEDS: DABIGATRAN 75 MG CAP PO SCH ×2 (08:39→20:18)
[2019-08-05] MEDS: PREGABALIN 75 MG CAP PO SCH ×2 (08:39→20:18)
[2019-08-05] MEDS: SPIRONOLACTONE 25 MG TAB PO SCH (08:39)
[2019-08-05] MEDS: DIGOXIN 125 MCG TAB PO SCH (08:39)
[2019-08-05] MEDS: PANTOPRAZOLE 40 MG TABLET PO SCH ×2 (08:39→20:18)
[2019-08-05] MEDS: IPRATROPIUM-ALBUTEROL 3 ML NEB INHALATION PRN ×3 (08:54→20:35)
[2019-08-05] MEDS: SYMBICORT 80-4.5 MCG INHALER INHALATION SCH ×2 (08:54→20:34)
[2019-08-05] MEDS: DOCUSATE 100 MG CAP PO SCH ×2 (09:12→20:19)
[2019-08-05 10:35] LABS: Calcium 8.9 mg/dL (8.4-10.2); Potassium 4.4 mmol/L (3.5-5.1)
[2019-08-05 11:49] LABS: Glucose,Whole Blood 129 mg/dL (75-99)
--- NOTE | 2019-08-05 14:00 | PN ---
PROGRESS NOTE The patient is seen for followup for acute kidney injury, which appears to be mainly cardiorenal. Patient is currently maintained on Lasix drip. He has had good urine output of about 5.3 L. Weight is down by about 1 kg. However, serum creatinine has gone up today to 3.5 from 3.0 yesterday. Previous creatinine was 1.7 on 02/04/2019. Overall, patient states he is feeling well. He denies any significant complaints this morning. PHYSICAL EXAMINATION: Blood pressure was 116/75, heart rate 74 per minute. He is afebrile. EXAMINATION OF THE HEART: S1, S2. EXAMINATION OF THE LUNGS: Bilateral breath sounds are heard. Abdomen is soft, nontender and morbidly obese. Examination of lower extremities shows chronic skin changes, chronic edema. 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 LABS: Labs show sodium 138, potassium 4.4, CO2 is 40, BUN 77, serum creatinine 3.56. ASSESSMENT: 1. Acute kidney injury, cardiorenal, with slight worsening in the creatinine, possibly related to recent diuresis. I will switch the Lasix drip to IV push Lasix. Continue with the Zaroxolyn for now. There are no nephrotoxic agents on board. 2. Metabolic alkalosis, currently maintained on Diamox. 3. Acute on top of chronic heart failure, mainly diastolic. 4. Morbid obesity. 5. Severely dilated left atrium with moderate pulmonary hypertension. PLAN: Switch to IV push Lasix. Repeat labs in a.m. MMODL / IJN: [id number] /
--- NOTE | 2019-08-05 17:00 | P.PN ---
Progress Note - Text Progress Note Date: 08/05/19 History of presenting complaint: This is a 58-year-old patient who follows with visiting physicians Dr. Aramis Saleh. Her extensive medical history. Chronic stable medical conditions include atrial fibrillation, COPD, diabetes, GERD, hypertension, hyperlipidemia, Ana arthritis, obstructive sleep apnea, bilateral neuropathy. Patient normally uses a cane to get about. Lives alone. Patient's sister drops and to help about. Patient is morbidly obese with a BMI over 64. Patient's been becoming gradually short of breath for a few days with increasing lower extremity swelling and abdominal wall swelling 2. Slight cough. Appetite is okay. No change in bowel movement. No fever no chills. Patient also was being treated with Bactrim and Keflex appears for cellulitis. Patient is felt to have congestive heart failure. For strict I's and O's Mccloud catheter was placed. Does some blood in the Mccloud catheter. Consultations made to nephrology and cardio G. Denies any pain. Patient admitted with-CHF exacerbation from diastolic dysfunction EF 60-65%, atrial fibrillation with a rapid ventricular rate, acute renal failure possibly ATN. Today-laying in bed. On IV Lasix. Good urine output. Has been about 6 ear is a negative fluid balance. Tolerating a diet. Hematuria has cleared up. Review of systems: Was done for constitutional, cardiovascular, GI, pulmonary. relevant finding as above Active Medications Acetaminophen (Tylenol Tab) 1,000 mg PO Q6HR PRN PRN Reason: Fever and/ or Pain Last Admin: 08/04/19 19:08 Dose: 1,000 mg Documented by: Acetazolamide (Diamox) 250 mg PO BID [facility] Last Admin: 08/05/19 08:38 Dose: 250 mg Documented by: Albuterol/Ipratropium (Duoneb 0.5 Mg-3 Mg/3 Ml Soln) 3 ml INHALATION RT-QID PRN PRN Reason: Shortness Of Breath Or Wheezing Last Admin: 08/05/19 16:51 Dose: 3 ml Documented by: Allopurinol (Zyloprim) 100 mg PO BID [facility] Last Admin: 08/05/19 08:38 Dose: 100 mg Documented by: Aspirin (Aspirin) 81 mg PO DAILY [facility] Last Admin: 08/05/19 08:38 Dose: 81 mg Documented by: Atorvastatin Calcium (Lipitor) 10 mg PO HS [facility] Last Admin: 08/04/19 20:06 Dose: 10 mg Documented by: Budesonide/Formoterol Fumarate (Symbicort 80-4.5 Mcg Inhaler) 2 puff INHALATION RT-BID [facility] Last Admin: 08/05/19 08:54 Dose: 2 puff Documented by: Cephalexin (Keflex) 250 mg PO Q6HR [facility] Cholecalciferol (Vitamin D3 (25 Mcg = 1000 Iu)) 2,000 unit PO DAILY [facility] Last Admin: 08/05/19 08:38 Dose: 2,000 unit Documented by: Clonazepam (Klonopin) 1 mg PO BID [facility] Last Admin: 08/05/19 08:38 Dose: 1 mg Documented by: Dabigatran (Pradaxa) 75 mg PO BID [facility] Last Admin: 08/05/19 08:39 Dose: 75 mg Documented by: Digoxin (Lanoxin) 125 mcg PO DAILY [facility] Last Admin: 08/05/19 08:39 Dose: 125 mcg Documented by: Docusate Sodium (Colace) 100 mg PO BID [facility] Last Admin: 08/05/19 09:12 Dose: Not Given Documented by: Furosemide (Lasix) 80 mg IV Q8HR [facility] Lactic Acid (Lac-Hydrin 12%) 1 applic TOPICAL BID PRN PRN Reason: Dry Skin Last Admin: 08/04/19 10:11 Dose: 1 applic Documented by: Metolazone (Zaroxolyn) 5 mg PO Q48H [facility] Last Admin: 08/04/19 23:37 Dose: 5 mg Documented by: Metoprolol Tartrate (Lopressor) 100 mg PO BID [facility] Last Admin: 08/05/19 08:38 Dose: 100 mg Documented by: Miconazole Nitrate (Monistat-Derm) 1 applic TOPICAL DAILY PRN PRN Reason: YEAST INFECTION Pantoprazole Sodium (Protonix) 40 mg PO BID [facility] Last Admin: 08/05/19 08:39 Dose: 40 mg Documented by: Pregabalin (Lyrica) 75 mg PO BID [facility] Last Admin: 08/05/19 08:39 Dose: 75 mg Documented by: Spironolactone (Aldactone) 25 mg PO DAILY [facility] Last Admin: 08/05/19 08:39 Dose: 25 mg Documented by: Trazodone HCl (Desyrel) 50 mg PO HS [facility] Last Admin: 08/04/19 20:07 Dose: 50 mg Documented by: Physical examination: VITAL SIGNS: 97.9, 74, 18, 11 6/75, 94% on 4 L GENERAL: Laying in bed, using BiPAP EYES: Pupils equal. Conjunctiva normal. HEENT: External appearance of nose and ears normal, oral cavity grossly normal. NECK: Short, thick, JVD unable to assess; masses not palpable. HEART: Distant heart sounds,; edema present, but pendular lower abdomen. LUNGS: Respiratory rate increased, distance breath sounds. ABDOMEN: Soft, large, some evidence of fungal infection in the groin, nontender, liver spleen not palpable, no masses palpable. PSYCH: Alert and oriented x3; mood and affect normal. NEUROLOGICAL: Cranial nerves grossly intact; no facial asymmetry, power and sensation are decreased distally. INVESTIGATIONS, reviewed in the clinical context: Potassium 4.4 bun 77 creatinine 3.56 Admission testing: White count 7.1 hemoglobin 9.4 platelets 247 Potassium 5.8 BUN 77 creatinine 3.39 Creatinine January 2019 was 1.71 Troponin I 0.091 proBNP 3500 EKG tracing personally reviewed by me-atrial flutter fibrillation with rate of of 100 Chest x-ray film personally reviewed by me-cardiomegaly and pulmonary edema 2-D echocardiogram from January 2019-EF 60-65% with wall motion abnormality Assessment: -Acute on chronic congestive heart failure exacerbation from diastolic dysfunction EF 60-65%,, switch from Lasix drip to Lasix bolus -Persistent atrial fibrillation rate uncontrolled on presentation -Acute renal failure possibly ATN multifactorial, including hypotension, patient also is on Bactrim at home. Which has been discontinued. Slow to improve -Chronic kidney disease stage III probably nephrosclerosis -Acute kidney injury from diuresis -Morbid obesity BMI 64.3 -COPD -Diabetes mellitus type 2, uncontrolled with hypoglycemia -GERD -Hyperlipidemia -Essential hypertension -Chronic medical debility -Obstructive sleep apnea -Diabetic peripheral neuropathy -Traumatic hematuria from Mccloud catheter, much improved Plan: Continue current medication. Care was discussed with the patient. Switched to IV Lasix bolus. Doing better. Repeat labs in the morning.
[2019-08-05 17:27] LABS: Glucose,Whole Blood 119 mg/dL (75-99)
[2019-08-05] MEDS: FUROSEMIDE 10 MG/ML 10 ML VIAL IV SCH ×2 (19:00→23:00)
[2019-08-05] MEDS: CEPHALEXIN 250 MG CAP PO SCH ×2 (19:03→23:00)
[2019-08-05] MEDS: ATORVASTATIN 10 MG TAB PO SCH (20:18)
[2019-08-05] MEDS: traZODone HCL 50 MG TAB PO SCH (20:18)
[2019-08-05 20:19] LABS: Glucose,Whole Blood 145 mg/dL (75-99)
[2019-08-06 06:15] LABS: Glucose,Whole Blood 116 mg/dL (75-99)
[2019-08-06] MEDS: CEPHALEXIN 250 MG CAP PO SCH ×4 (06:35→23:00)
--- NOTE | 2019-08-06 08:44 | XR ---
EXAMINATION TYPE: XR chest 1V DATE OF EXAM: 08/06/2019 HISTORY: Possible pleural effusions. REFERENCE: Previous examination dated 08/04/2019. FINDINGS: The study is quite lordotic. The heart is enlarged. There are worsening bibasilar infiltrat es. I cannot exclude small effusions. IMPRESSION: 1. SUBOPTIMAL STUDY. 2. CARDIOMEGALY. 3. BIBASILAR INFILTRATES. 4. I CANNOT EXCLUDE SMALL, BILATERAL EFFUSIONS.
[2019-08-06] MEDS: IPRATROPIUM-ALBUTEROL 3 ML NEB INHALATION PRN ×3 (08:45→20:17)
[2019-08-06] MEDS: SYMBICORT 80-4.5 MCG INHALER INHALATION SCH ×2 (08:46→20:17)
[2019-08-06 09:10] LABS: Potassium 4.5 mmol/L (3.5-5.1)
[2019-08-06] MEDS: ALLOPURINOL 100 MG TAB PO SCH ×2 (09:43→22:12)
[2019-08-06] MEDS: SPIRONOLACTONE 25 MG TAB PO SCH (09:43)
[2019-08-06] MEDS: acetaZOLAMIDE 250 MG TAB PO SCH ×2 (09:43→22:12)
[2019-08-06] MEDS: clonazePAM 1 MG TAB PO SCH ×2 (09:43→22:17)
[2019-08-06] MEDS: METOPROLOL TARTRATE 50 MG TAB PO SCH ×2 (09:43→22:13)
[2019-08-06] MEDS: CHOLECALCIFEROL 1,000 UNIT TAB PO SCH (09:43)
[2019-08-06] MEDS: PREGABALIN 75 MG CAP PO SCH ×2 (09:43→22:13)
[2019-08-06] MEDS: ASPIRIN 81 MG PO SCH (09:43)
[2019-08-06] MEDS: DIGOXIN 125 MCG TAB PO SCH (09:43)
[2019-08-06] MEDS: DOCUSATE 100 MG CAP PO SCH ×2 (09:43→22:12)
[2019-08-06] MEDS: DABIGATRAN 75 MG CAP PO SCH ×2 (09:43→22:12)
[2019-08-06] MEDS: PANTOPRAZOLE 40 MG TABLET PO SCH ×2 (09:43→22:12)
[2019-08-06] MEDS: FUROSEMIDE 10 MG/ML 10 ML VIAL IV SCH (09:43)
[2019-08-06 12:07] LABS: Glucose,Whole Blood 183 mg/dL (75-99)
--- NOTE | 2019-08-06 13:21 | PN ---
PROGRESS NOTE Patient is seen for followup for chronic kidney disease and acute kidney injury. Patient was maintained on Lasix drip which was discontinued yesterday. His serum creatinine had gone up slightly to 3.5 yesterday. The patient has an indwelling Mccloud catheter. His blood pressure remains on the lower side. Urine output for 24 hours was about 3 L. PHYSICAL EXAMINATION: On examination today, blood pressure 89/53, heart rate 82 per minute, patient is afebrile. Examination of the heart S1, S2. Examination of the lungs, bilateral breath sounds are heard. Decreased breath sounds at bases. Abdomen is soft, morbidly obese. Examination of lower extremities shows chronic skin changes, chronic edema. DRAY DRIVER exam grossly intact. LABS: Sodium 139, potassium 4.5, CO2 of 45, BUN 76, serum creatinine 3.72, calcium 8.0. ASSESSMENT: 1. Acute kidney injury, cardiorenal and secondary to some degree of hypotension and hypoperfusion, nonoliguric. Serum creatinine continues to rise. Lasix drip was discontinued. Currently patient is on 80 mg q.8 hours. I will decrease that to 40 mg IV q.12 hours. Continue with the Zaroxolyn for now. 2. Volume overload, slowly improving. 3. Metabolic alkalosis secondary to recent diuresis as well as underlying chronic obstructive pulmonary disease and obstructive sleep apnea, maintained on Diamox. PLAN: Decrease Lasix. Add midodrine. Consider decreasing dose of Lopressor if okay with Cardiology. MMODL / IJN: [id number] /
[2019-08-06] MEDS ORDERED: FUROSEMIDE 10 MG/ML 4 ML VIAL IV SCH (16:00)
[2019-08-06 17:04] LABS: Glucose,Whole Blood 141 mg/dL (75-99)
[2019-08-06] MEDS: MIDODRINE 5 MG TAB PO SCH (17:19)
--- NOTE | 2019-08-06 21:00 | P.PN ---
Progress Note - Text Progress Note Date: 08/06/19 History of presenting complaint: This is a 58-year-old patient who follows with visiting physicians Dr. Aramis Saleh. Her extensive medical history. Chronic stable medical conditions include atrial fibrillation, COPD, diabetes, GERD, hypertension, hyperlipidemia, Ana arthritis, obstructive sleep apnea, bilateral neuropathy. Patient normally uses a cane to get about. Lives alone. Patient's sister drops and to help about. Patient is morbidly obese with a BMI over 64. Patient's been becoming gradually short of breath for a few days with increasing lower extremity swelling and abdominal wall swelling 2. Slight cough. Appetite is okay. No change in bowel movement. No fever no chills. Patient also was being treated with Bactrim and Keflex appears for cellulitis. Patient is felt to have congestive heart failure. For strict I's and O's Mccloud catheter was placed. Does some blood in the Mccloud catheter. Consultations made to nephrology and cardio G. Denies any pain. Patient admitted with-CHF exacerbation from diastolic dysfunction EF 60-65%, atrial fibrillation with a rapid ventricular rate, acute renal failure possibly ATN. Today-about 8.8 L in negative fluid balance. On IV Lasix 40 mg every 8.. Breathing much improved. Eating well. Overall feels better. Review of systems: Was done for constitutional, cardiovascular, GI, pulmonary. relevant finding as above Active Medications Acetaminophen (Tylenol Tab) 1,000 mg PO Q6HR PRN PRN Reason: Fever and/ or Pain Last Admin: 08/04/19 19:08 Dose: 1,000 mg Documented by: Acetazolamide (Diamox) 250 mg PO BID [facility] Last Admin: 08/06/19 09:43 Dose: 250 mg Documented by: Albuterol/Ipratropium (Duoneb 0.5 Mg-3 Mg/3 Ml Soln) 3 ml INHALATION RT-QID PRN PRN Reason: Shortness Of Breath Or Wheezing Last Admin: 08/06/19 20:17 Dose: 3 ml Documented by: Allopurinol (Zyloprim) 100 mg PO BID [facility] Last Admin: 08/06/19 09:43 Dose: 100 mg Documented by: Aspirin (Aspirin) 81 mg PO DAILY [facility] Last Admin: 08/06/19 09:43 Dose: 81 mg Documented by: Atorvastatin Calcium (Lipitor) 10 mg PO HS [facility] Last Admin: 08/05/19 20:18 Dose: 10 mg Documented by: Budesonide/Formoterol Fumarate (Symbicort 80-4.5 Mcg Inhaler) 2 puff INHALATION RT-BID [facility] Last Admin: 08/06/19 20:17 Dose: Not Given Documented by: Cephalexin (Keflex) 250 mg PO Q6HR [facility] Last Admin: 08/06/19 17:17 Dose: 250 mg Documented by: Cholecalciferol (Vitamin D3 (25 Mcg = 1000 Iu)) 2,000 unit PO DAILY [facility] Last Admin: 08/06/19 09:43 Dose: 2,000 unit Documented by: Clonazepam (Klonopin) 1 mg PO BID [facility] Last Admin: 08/06/19 09:43 Dose: 1 mg Documented by: Dabigatran (Pradaxa) 75 mg PO BID [facility] Last Admin: 08/06/19 09:43 Dose: 75 mg Documented by: Digoxin (Lanoxin) 125 mcg PO DAILY [facility] Last Admin: 08/06/19 09:43 Dose: 125 mcg Documented by: Docusate Sodium (Colace) 100 mg PO BID [facility] Last Admin: 08/06/19 09:43 Dose: Not Given Documented by: Furosemide (Lasix) 40 mg IV Q8HR [facility] Last Admin: 08/06/19 17:17 Dose: 40 mg Documented by: Lactic Acid (Lac-Hydrin 12%) 1 applic TOPICAL BID PRN PRN Reason: Dry Skin Last Admin: 08/04/19 10:11 Dose: 1 applic Documented by: Metolazone (Zaroxolyn) 5 mg PO Q48H [facility] Last Admin: 08/04/19 23:37 Dose: 5 mg Documented by: Metoprolol Tartrate (Lopressor) 100 mg PO BID [facility] Last Admin: 08/06/19 09:43 Dose: 100 mg Documented by: Miconazole Nitrate (Monistat-Derm) 1 applic TOPICAL DAILY PRN PRN Reason: YEAST INFECTION Midodrine (Proamatine) 10 mg PO AC-BID [facility] Last Admin: 08/06/19 17:19 Dose: Not Given Documented by: Pantoprazole Sodium (Protonix) 40 mg PO BID [facility] Last Admin: 08/06/19 09:43 Dose: 40 mg Documented by: Pregabalin (Lyrica) 75 mg PO BID [facility] Last Admin: 08/06/19 09:43 Dose: 75 mg Documented by: Silver Sulfadiazine (Silvadene Cream) 1 applic TOPICAL DAILY [facility] Spironolactone (Aldactone) 25 mg PO DAILY [facility] Last Admin: 08/06/19 09:43 Dose: 25 mg Documented by: Trazodone HCl (Desyrel) 50 mg PO HS [facility] Last Admin: 08/05/19 20:18 Dose: 50 mg Documented by: Physical examination: VITAL SIGNS: 98.4, 89, 18, 120/85, 91% on BiPAP GENERAL: Laying in bed, using BiPAP EYES: Pupils equal. Conjunctiva normal. HEENT: External appearance of nose and ears normal, oral cavity grossly normal. NECK: Short, thick, JVD unable to assess; masses not palpable. HEART: Distant heart sounds,; edema present, with pendular lower abdomen. LUNGS: Respiratory rate increased, distance breath sounds. ABDOMEN: Soft, large, some evidence of fungal infection in the groin, nontender, liver spleen not palpable, no masses palpable. PSYCH: Alert and oriented x3; mood and affect normal. NEUROLOGICAL: Cranial nerves grossly intact; no facial asymmetry, power and sensation are decreased distally. INVESTIGATIONS, reviewed in the clinical context: White count 45 bun 76 creatinine 3.72 Admission testing: White count 7.1 hemoglobin 9.4 platelets 247 Potassium 5.8 BUN 77 creatinine 3.39 Creatinine January 2019 was 1.71 Troponin I 0.091 proBNP 3500 EKG tracing personally reviewed by me-atrial flutter fibrillation with rate of of 100 Chest x-ray film personally reviewed by me-cardiomegaly and pulmonary edema 2-D echocardiogram from January 2019-EF 60-65% with wall motion abnormality Assessment: -Acute on chronic congestive heart failure exacerbation from diastolic dysfunction EF 60-65%,, switch from Lasix drip to Lasix bolus -Persistent atrial fibrillation rate uncontrolled on presentation -Acute renal failure possibly ATN multifactorial, including hypotension, patient also is on Bactrim at home. Which has been discontinued. Slow to improve -Chronic kidney disease stage III probably nephrosclerosis -Acute kidney injury from diuresis -Morbid obesity BMI 64.3 -Metabolic alkalosis from volume contraction -COPD -Diabetes mellitus type 2, uncontrolled with hypoglycemia -GERD -Hyperlipidemia -Essential hypertension -Chronic medical debility -Obstructive sleep apnea -Diabetic peripheral neuropathy -Traumatic hematuria from Mccloud catheter, much improved Plan: Patient is possibly U Bright make/hypovolemic. Blood pressure the lower side and also patient alkalotic. We'll DC the IV Lasix after today. Maintain on Zaroxolyn. Patient also on Aldactone. Chain Zaroxolyn to 5 mg daily.
[2019-08-06 21:01] LABS: Glucose,Whole Blood 143 mg/dL (75-99)
[2019-08-06 21:38] LABS: ABG Oxygen Saturation 93.7 % (94-97); ABG PH 7.31 (7.35-7.45); ABG PO2 73 mmHg (83-108); ABG TCO2 47 mmol/L (19-24); Allen Test Performed? Yes
[2019-08-06 21:45] LABS: ABG HCO3 44 mmol/L (21-25); ABG PCO2 88 mmHg (35-45)
[2019-08-06] MEDS: ATORVASTATIN 10 MG TAB PO SCH (22:12)
[2019-08-06] MEDS: traZODone HCL 50 MG TAB PO SCH (22:17)
[2019-08-06] MEDS: clonazePAM 0.5 MG TAB PO SCH (22:20)
--- NOTE | 2019-08-06 23:05 | CT ---
EXAMINATION TYPE: CT brain wo con DATE OF EXAM: 08/06/2019 COMPARISON: August 02, 2019 HISTORY: increased confusion. CT DLP: 1109 mGycm Automated exposure control for dose reduction was used. FINDINGS: Ventricles have normal size. There is no mass effect nor midline shift. There is no sign of intracran ial hemorrhage. Calvarium is intact. There is no evidence of cerebral edema. IMPRESSION: NEGATIVE CT SCAN OF THE BRAIN. NO CHANGE.
[2019-08-07] MEDS: ACETAMINOPHEN TAB 500 MG TAB PO PRN ×3 (01:32→20:34)
[2019-08-07 06:05] LABS: Glucose,Whole Blood 112 mg/dL (75-99)
[2019-08-07] MEDS: MIDODRINE 5 MG TAB PO SCH ×2 (06:07→17:41)
[2019-08-07] MEDS: CEPHALEXIN 250 MG CAP PO SCH ×4 (06:07→23:24)
[2019-08-07 06:37] LABS: Calcium 8.7 mg/dL (8.4-10.2); Magnesium 2.7 mg/dL (1.6-2.3); Potassium 4.5 mmol/L (3.5-5.1)
[2019-08-07] MEDS: SYMBICORT 80-4.5 MCG INHALER INHALATION SCH ×2 (08:37→20:38)
[2019-08-07] MEDS: clonazePAM 0.5 MG TAB PO SCH ×2 (08:56→20:33)
[2019-08-07] MEDS: METOPROLOL TARTRATE 50 MG TAB PO SCH ×2 (08:56→20:33)
[2019-08-07] MEDS: SPIRONOLACTONE 25 MG TAB PO SCH (08:57)
[2019-08-07] MEDS: PANTOPRAZOLE 40 MG TABLET PO SCH ×2 (08:57→20:33)
[2019-08-07] MEDS: acetaZOLAMIDE 250 MG TAB PO SCH ×2 (08:57→20:33)
[2019-08-07] MEDS: DOCUSATE 100 MG CAP PO SCH ×2 (08:57→20:33)
[2019-08-07] MEDS: ASPIRIN 81 MG PO SCH (08:57)
[2019-08-07] MEDS: DIGOXIN 125 MCG TAB PO SCH ×2 (08:57→08:58)
[2019-08-07] MEDS: CHOLECALCIFEROL 1,000 UNIT TAB PO SCH (08:57)
[2019-08-07] MEDS: PREGABALIN 75 MG CAP PO SCH (08:57)
[2019-08-07] MEDS: ALLOPURINOL 100 MG TAB PO SCH ×2 (08:57→20:33)
[2019-08-07 12:07] LABS: Glucose,Whole Blood 124 mg/dL (75-99)
[2019-08-07] MEDS: DABIGATRAN 75 MG CAP PO SCH ×2 (12:20→20:33)
[2019-08-07] MEDS: METOLAZONE 5 MG TAB PO SCH (12:21)
[2019-08-07] MEDS: FUROSEMIDE 10 MG/ML 4 ML VIAL IV SCH ×2 (12:21→23:24)
--- NOTE | 2019-08-07 13:20 | PN ---
PROGRESS NOTE Patient is seen for followup for acute kidney injury which is mainly cardiorenal and secondary to hypotension hypoperfusion. Patient was significantly volume overloaded. He has been diuresed. He was initiated on Lasix drip which was changed to IV push Lasix. Serum creatinine had gone up to 3.7. I had decreased his diuretics yesterday. Today creatinine is down to 3.39. Patient has had about 3 L of urine output over 24 hours. Overall, he states he is feeling fairly well. PHYSICAL EXAMINATION: On examination, blood pressure was 90/60, heart rate 78 per minute. He is afebrile. EXAMINATION OF THE HEART: S1, S2. EXAMINATION OF THE LUNGS: Bilateral breath sounds are heard. Decreased breath sounds at the bases. Abdomen is soft. Morbidly obese. Examination of lower extremities shows chronic skin changes, chronic edema bilaterally. Bilateral extremities are wrapped. LABS: Labs show sodium 138, potassium 4.5, chloride 89, CO2 is 43, BUN 78, creatinine 3.39, magnesium 2.7. ASSESSMENT: 1. Acute kidney injury secondary to hypotension as well as element of cardiorenal syndrome, currently nonoliguric with indwelling Mccloud catheter with some improvement in renal function. I will resume Lasix at 40 mg IV q.8 hours. 2. Metabolic alkalosis secondary to diuresis as well as severe chronic obstructive pulmonary disease and obstructive sleep apnea with CO2 retention. Continue with the Diamox for now. 3. Volume overload, slowly improving. 4. Morbid obesity. 5. History of atrial fibrillation, maintained on Pradaxa. 6. Mild hyperkalemia initially, currently improved. PLAN: Resume Lasix 40 mg q.8 hours. Continue with Diamox. Repeat labs in a.m. MMODL / IJN: [id number] /
[2019-08-07 16:42] LABS: Glucose,Whole Blood 119 mg/dL (75-99)
[2019-08-07] MEDS: ATORVASTATIN 10 MG TAB PO SCH (20:33)
--- NOTE | 2019-08-07 20:33 | P.PN ---
Progress Note - Text Progress Note Date: 08/07/19 History of presenting complaint: This is a 58-year-old patient who follows with visiting physicians Dr. Aramis Saleh. Her extensive medical history. Chronic stable medical conditions include atrial fibrillation, COPD, diabetes, GERD, hypertension, hyperlipidemia, Ana arthritis, obstructive sleep apnea, bilateral neuropathy. Patient normally uses a cane to get about. Lives alone. Patient's sister drops and to help about. Patient is morbidly obese with a BMI over 64. Patient's been becoming gradually short of breath for a few days with increasing lower extremity swelling and abdominal wall swelling 2. Slight cough. Appetite is okay. No change in bowel movement. No fever no chills. Patient also was being treated with Bactrim and Keflex appears for cellulitis. Patient is felt to have congestive heart failure. For strict I's and O's Mccloud catheter was placed. Does some blood in the Mccloud catheter. Consultations made to nephrology and cardio G. Denies any pain. Patient admitted with-CHF exacerbation from diastolic dysfunction EF 60-65%, atrial fibrillation with a rapid ventricular rate, acute renal failure possibly ATN. Today-doing well. Sitting up in a chair. Mccloud has been discontinued. Breathing improved. More awake sitting up. About 10 L in negative fluid balance. Switch to 40 mg IV Lasix every 8. Review of systems: Was done for constitutional, cardiovascular, GI, pulmonary. relevant finding as above Active Medications Acetaminophen (Tylenol Tab) 1,000 mg PO Q6HR PRN PRN Reason: Fever and/ or Pain Last Admin: 08/07/19 08:55 Dose: 1,000 mg Documented by: Acetazolamide (Diamox) 250 mg PO BID [facility] Last Admin: 08/07/19 08:57 Dose: 250 mg Documented by: Albuterol/Ipratropium (Duoneb 0.5 Mg-3 Mg/3 Ml Soln) 3 ml INHALATION RT-QID PRN PRN Reason: Shortness Of Breath Or Wheezing Last Admin: 08/06/19 20:17 Dose: 3 ml Documented by: Allopurinol (Zyloprim) 100 mg PO BID [facility] Last Admin: 08/07/19 08:57 Dose: 100 mg Documented by: Aspirin (Aspirin) 81 mg PO DAILY [facility] Last Admin: 08/07/19 08:57 Dose: 81 mg Documented by: Atorvastatin Calcium (Lipitor) 10 mg PO HS [facility] Last Admin: 08/06/19 22:12 Dose: 10 mg Documented by: Budesonide/Formoterol Fumarate (Symbicort 80-4.5 Mcg Inhaler) 2 puff INHALATION RT-BID [facility] Last Admin: 08/07/19 08:37 Dose: Not Given Documented by: Cephalexin (Keflex) 250 mg PO Q8HR [facility] Last Admin: 08/07/19 17:41 Dose: 250 mg Documented by: Cholecalciferol (Vitamin D3 (25 Mcg = 1000 Iu)) 2,000 unit PO DAILY [facility] Last Admin: 08/07/19 08:57 Dose: 2,000 unit Documented by: Clonazepam (Klonopin) 0.5 mg PO BID [facility] Last Admin: 08/07/19 08:56 Dose: 0.5 mg Documented by: Dabigatran (Pradaxa) 75 mg PO BID [facility] Last Admin: 08/07/19 12:20 Dose: 75 mg Documented by: Digoxin (Lanoxin) 125 mcg PO DAILY [facility] Last Admin: 08/07/19 08:58 Dose: 125 mcg Documented by: Docusate Sodium (Colace) 100 mg PO BID [facility] Last Admin: 08/07/19 08:57 Dose: 100 mg Documented by: Furosemide (Lasix) 40 mg IV Q8HR [facility] Last Admin: 08/07/19 12:21 Dose: 40 mg Documented by: Lactic Acid (Lac-Hydrin 12%) 1 applic TOPICAL BID PRN PRN Reason: Dry Skin Last Admin: 08/04/19 10:11 Dose: 1 applic Documented by: Metolazone (Zaroxolyn) 5 mg PO DAILY [facility] Last Admin: 08/07/19 12:21 Dose: 5 mg Documented by: Metoprolol Tartrate (Lopressor) 100 mg PO BID [facility] Last Admin: 08/07/19 08:56 Dose: 100 mg Documented by: Miconazole Nitrate (Monistat-Derm) 1 applic TOPICAL DAILY PRN PRN Reason: YEAST INFECTION Midodrine (Proamatine) 10 mg PO AC-BID [facility] Last Admin: 08/07/19 17:41 Dose: 10 mg Documented by: Pantoprazole Sodium (Protonix) 40 mg PO BID [facility] Last Admin: 08/07/19 08:57 Dose: 40 mg Documented by: Pregabalin (Lyrica) 75 mg PO DAILY [facility] Last Admin: 08/07/19 08:57 Dose: 75 mg Documented by: Silver Sulfadiazine (Silvadene Cream) 1 applic TOPICAL [facility] Spironolactone (Aldactone) 25 mg PO DAILY [facility] Last Admin: 08/07/19 08:57 Dose: 25 mg Documented by: Physical examination: VITAL SIGNS: 97.4, 78, 20, 11 1 x 58, 99% on 2 L GENERAL: Sitting upon a chair, awake EYES: Pupils equal. Conjunctiva normal. HEENT: External appearance of nose and ears normal, oral cavity grossly normal. NECK: Short, thick, JVD unable to assess; masses not palpable. HEART: Distant heart sounds,; edema present, with pendular lower abdomen. LUNGS: Respiratory rate increased, distance breath sounds. ABDOMEN: Soft, large, some evidence of fungal infection in the groin, nontender, liver spleen not palpable, no masses palpable. PSYCH: Alert and oriented x3; mood and affect normal. NEUROLOGICAL: Cranial nerves grossly intact; no facial asymmetry, power and sensation are decreased distally. INVESTIGATIONS, reviewed in the clinical context: Potassium 4.5 by cuff 43 creatinine 3.39 bun 78 Admission testing: White count 7.1 hemoglobin 9.4 platelets 247 Potassium 5.8 BUN 77 creatinine 3.39 Creatinine January 2019 was 1.71 Troponin I 0.091 proBNP 3500 EKG tracing personally reviewed by me-atrial flutter fibrillation with rate of of 100 Chest x-ray film personally reviewed by me-cardiomegaly and pulmonary edema 2-D echocardiogram from January 2019-EF 60-65% with wall motion abnormality Assessment: -Acute on chronic congestive heart failure exacerbation from diastolic dysfunction EF 60-65%,, switch from Lasix drip to Lasix bolus -Persistent atrial fibrillation rate uncontrolled on presentation -Acute renal failure possibly ATN multifactorial, including hypotension, patient also is on Bactrim at home. Which has been discontinued. Slow to improve -Chronic kidney disease stage III probably nephrosclerosis -Acute kidney injury from diuresis -Morbid obesity BMI 64.3 -Metabolic alkalosis from volume contraction -COPD -Diabetes mellitus type 2, uncontrolled with hypoglycemia -GERD -Hyperlipidemia -Essential hypertension -Chronic medical debility -Obstructive sleep apnea -Diabetic peripheral neuropathy -Traumatic hematuria from Mccloud catheter, much improved Plan: Patient seen by nephrology this morning. IV Lasix 40 mg every 8 started. On Zaroxolyn. Follow I's closely. Care was discussed with the patient. Follow labs..
[2019-08-07 20:34] LABS: Glucose,Whole Blood 170 mg/dL (75-99)
[2019-08-07] MEDS: IPRATROPIUM-ALBUTEROL 3 ML NEB INHALATION PRN (20:37)
[2019-08-07 23:31] LABS: Glucose,Whole Blood 164 mg/dL (75-99)
[2019-08-08 06:32] LABS: Glucose,Whole Blood 103 mg/dL (75-99)
[2019-08-08] MEDS: MIDODRINE 5 MG TAB PO SCH ×2 (06:37→20:17)
[2019-08-08] MEDS: SYMBICORT 80-4.5 MCG INHALER INHALATION SCH ×2 (08:18→20:24)
[2019-08-08] MEDS: ALLOPURINOL 100 MG TAB PO SCH ×2 (09:03→21:26)
[2019-08-08] MEDS: PANTOPRAZOLE 40 MG TABLET PO SCH ×2 (09:05→21:25)
[2019-08-08] MEDS: clonazePAM 0.5 MG TAB PO SCH (09:05)
[2019-08-08] MEDS: acetaZOLAMIDE 250 MG TAB PO SCH ×2 (09:05→21:25)
[2019-08-08] MEDS: DOCUSATE 100 MG CAP PO SCH ×2 (09:08→21:25)
[2019-08-08] MEDS: METOPROLOL TARTRATE 50 MG TAB PO SCH ×2 (09:08→21:25)
[2019-08-08] MEDS: ASPIRIN 81 MG PO SCH (09:08)
[2019-08-08] MEDS: CHOLECALCIFEROL 1,000 UNIT TAB PO SCH (09:08)
[2019-08-08] MEDS: PREGABALIN 75 MG CAP PO SCH (09:08)
[2019-08-08] MEDS: SPIRONOLACTONE 25 MG TAB PO SCH (09:09)
[2019-08-08] MEDS: CEPHALEXIN 250 MG CAP PO SCH ×3 (09:19→23:57)
[2019-08-08] MEDS: FUROSEMIDE 10 MG/ML 4 ML VIAL IV SCH ×3 (09:19→23:56)
[2019-08-08] MEDS: METOLAZONE 5 MG TAB PO SCH (09:20)
[2019-08-08] MEDS: DABIGATRAN 75 MG CAP PO SCH ×2 (09:20→21:25)
--- NOTE | 2019-08-08 10:29 | PN ---
PROGRESS NOTE DATE OF SERVICE: 08/08/2019 This is a 58-year-old gentleman who was actually admitted back on August 02, 2019. Dr. Govea had signed off the patient on August 04, 2019. More recently, the patient apparently has been having lots of lethargy. I believe it is primarily for two reasons. One is the fact that he is more hypercapnic than normal because his FiO2 on the BiPAP device is too high. His PO2 is higher than it should be. Also, I think because of certain sedatives or hypnotics or narcotics that he is getting, his CO2 is higher than it should be. Currently, the patient is on BiPAP. He is awake and alert. Not really complaining of much. His FiO2 on the BiPAP device is 45%. His blood gases showed a PO2 in my opinion that was too high for this patient. Typically, this patient probably has a PO2 in the high 50s, low 60s and a saturation right around 88%-90%. Anyway, for a variety reasons including ventilation/perfusion mismatch, blunted respiratory drive in the [place] affect, the patient's CO2 is higher than it should be. I did speak to the nurse Laura. She understands. She is going to call the primary and DC all the unnecessary sedative drugs or any other drugs that might be having an effect on the patient's respiratory status. Likewise, she is going to call Respiratory Therapy and have them titrate the FiO2 down so the saturations are in the range that I mentioned earlier. PHYSICAL EXAMINATION: Current vital signs are reviewed, temperature is 98, heart rate is 73, respiratory rate 20, blood pressure 132/71 mean 91, saturations are 99%. HEENT: Examination is grossly unremarkable. BiPAP mask in place. NECK: Supple. Full range of motion. No adenopathy. CARDIOVASCULAR:: Examination reveals regular rhythm and rate. Heart rate 73. Heart sounds are distant. LUNGS: Reveal mostly clear breath sounds. A few scattered rhonchi. No wheezes or crackles. ABDOMEN: Obese. Bowel sounds are not noted. EXTREMITIES: Intact. There is significant edema. SKIN: Without rash. NEUROLOGIC: Examination is brief but nonfocal. LABS: Data is reviewed. There is nothing more to report or new to report other than the most recent blood gas done a couple days ago showing a pO2 of 73, pCO2 of 88, and pH of 7.31. His bicarbonate concentration on the electrolyte profile has risen to a high of 45. A brain CT was ordered. It was done on August 06. It was negative. I suspect that was done because of mental status changes. Chest x-ray on 08/06 shows cardiomegaly and some fluid overload with bilateral effusions. ASSESSMENT: 1. Acute on chronic hypercapnic and hypoxemic respiratory failure, primarily related to chronic congestive heart failure with preserved ejection fraction. 2. Chronic obstructive pulmonary disease, on home oxygen, baseline FEV1 is not known. 3. Mild hyperkalemia. 4. Positive troponins. 5. Chronic atrial fibrillation, currently on Pradaxa thank you. 6. Morbid obesity, status post bariatric surgery. 7. Diabetes mellitus, type 2 with neuropathy. 8. Sleep apnea syndrome, on home BiPAP. 9. Hypertension. 10.Hyperlipidemia. 11.Former smoker. 12.Previous methicillin-resistant Staphylococcus aureus infection. 13.Rule out Pickwickian syndrome. PLAN: The patient's worsening hypoxemia is primarily related to the FiO2 on the BiPAP device being too high and certain medications and his profile which are blunting his respiratory effort. I have addressed both of these issues with the nurse. She will call the respiratory therapist to have the FiO2 titrated down and also call the primary service with the unnecessary medications which blunt the respiratory drive can be discontinued. We will continue with the medication as needed. MMALYSSAL / IJN: [id number] /
[2019-08-08] MEDS: IPRATROPIUM-ALBUTEROL 3 ML NEB INHALATION PRN (11:35)
[2019-08-08 11:43] LABS: Glucose,Whole Blood 116 mg/dL (75-99)
[2019-08-08 12:56] LABS: Calcium 9.1 mg/dL (8.4-10.2); Potassium 4.3 mmol/L (3.5-5.1)
[2019-08-08 16:56] LABS: Glucose,Whole Blood 133 mg/dL (75-99)
--- NOTE | 2019-08-08 19:05 | PN ---
PROGRESS NOTE Patient is seen for followup for acute kidney injury. He has been recently diuresed. Initially patient was on a Lasix drip which is now discontinued. He is currently on IV push Lasix 40 mg q.8 hours. Patient continues to have good urine output. His creatinine also continues to improve. It is down to 3.1 today. PHYSICAL EXAMINATION: Blood pressure was 113/69, heart rate of 89 per minute. He is afebrile. Examination of the heart S1, S2. Examination of the lungs, bilateral breath sounds are heard. ABDOMEN: Soft. Morbidly obese. Examination of lower extremities shows chronic skin changes. Chronic edema. LABS: Sodium of 139, potassium 4.3. CO2 is 42, BUN 77, creatinine 3.1. ASSESSMENT: 1. Acute kidney injury, cardiorenal and secondary to hypotension, currently improving. The Lasix is at 40 mg IV q.8 hours, which I will continue. 2. Metabolic alkalosis secondary to severe chronic obstructive pulmonary disease as well as recent diuresis maintained on Diamox. CO2 is stable. 3. Volume overload slowly improving. 4. Morbid obesity. 5. History of atrial fibrillation, controlled ventricular response. 6. Mild hyperkalemia on initial admission, currently improved. PLAN: Continue with IV Lasix. Monitor labs. Avoid nephrotoxic agents. MMODL / IJN: [id number] /
[2019-08-08 20:13] LABS: Glucose,Whole Blood 158 mg/dL (75-99)
--- NOTE | 2019-08-08 20:43 | P.PN ---
Progress Note - Text Progress Note Date: 08/08/19 History of presenting complaint: This is a 58-year-old patient who follows with visiting physicians Dr. Aramis Saleh. Her extensive medical history. Chronic stable medical conditions include atrial fibrillation, COPD, diabetes, GERD, hypertension, hyperlipidemia, Ana arthritis, obstructive sleep apnea, bilateral neuropathy. Patient normally uses a cane to get about. Lives alone. Patient's sister drops and to help about. Patient is morbidly obese with a BMI over 64. Patient's been becoming gradually short of breath for a few days with increasing lower extremity swelling and abdominal wall swelling 2. Slight cough. Appetite is okay. No change in bowel movement. No fever no chills. Patient also was being treated with Bactrim and Keflex appears for cellulitis. Patient is felt to have congestive heart failure. For strict I's and O's Mccloud catheter was placed. Does some blood in the Mccloud catheter. Consultations made to nephrology and cardio G. Denies any pain. Patient admitted with-CHF exacerbation from diastolic dysfunction EF 60-65%, atrial fibrillation with a rapid ventricular rate, acute renal failure possibly ATN. Today-sitting upon a chair. Eating. Breathing is improving. Has had good urine output. On Lasix. About 9 L in negative fluid balance is Review of systems: Was done for constitutional, cardiovascular, GI, pulmonary. relevant finding as above Active Medications Acetaminophen (Tylenol Tab) 1,000 mg PO Q6HR PRN PRN Reason: Fever and/ or Pain Last Admin: 08/07/19 20:34 Dose: 1,000 mg Documented by: Acetazolamide (Diamox) 250 mg PO BID [facility] Last Admin: 08/08/19 09:05 Dose: 250 mg Documented by: Albuterol/Ipratropium (Duoneb 0.5 Mg-3 Mg/3 Ml Soln) 3 ml INHALATION RT-QID PRN PRN Reason: Shortness Of Breath Or Wheezing Last Admin: 08/08/19 11:35 Dose: 3 ml Documented by: Allopurinol (Zyloprim) 100 mg PO BID [facility] Last Admin: 08/08/19 09:03 Dose: 100 mg Documented by: Aspirin (Aspirin) 81 mg PO DAILY [facility] Last Admin: 08/08/19 09:08 Dose: 81 mg Documented by: Atorvastatin Calcium (Lipitor) 10 mg PO HS [facility] Last Admin: 10/07/19 20:33 Dose: 10 mg Documented by: Budesonide/Formoterol Fumarate (Symbicort 80-4.5 Mcg Inhaler) 2 puff INHALATION RT-BID [facility] Last Admin: 08/08/19 20:24 Dose: 2 puff Documented by: Cephalexin (Keflex) 250 mg PO Q8HR [facility] Last Admin: 08/08/19 20:18 Dose: Not Given Documented by: Cholecalciferol (Vitamin D3 (25 Mcg = 1000 Iu)) 2,000 unit PO DAILY [facility] Last Admin: 08/08/19 09:08 Dose: 2,000 unit Documented by: Dabigatran (Pradaxa) 75 mg PO BID [facility] Last Admin: 08/08/19 09:20 Dose: 75 mg Documented by: Digoxin (Lanoxin) 125 mcg PO DAILY [facility] Last Admin: 08/07/19 08:58 Dose: 125 mcg Documented by: Docusate Sodium (Colace) 100 mg PO BID [facility] Last Admin: 08/08/19 09:08 Dose: 100 mg Documented by: Furosemide (Lasix) 40 mg IV Q8HR [facility] Last Admin: 08/08/19 20:18 Dose: Not Given Documented by: Lactic Acid (Lac-Hydrin 12%) 1 applic TOPICAL BID PRN PRN Reason: Dry Skin Last Admin: 08/04/19 10:11 Dose: 1 applic Documented by: Metolazone (Zaroxolyn) 5 mg PO DAILY [facility] Last Admin: 08/08/19 09:20 Dose: 5 mg Documented by: Metoprolol Tartrate (Lopressor) 100 mg PO BID [facility] Last Admin: 08/08/19 09:08 Dose: 100 mg Documented by: Miconazole Nitrate (Monistat-Derm) 1 applic TOPICAL DAILY PRN PRN Reason: YEAST INFECTION Midodrine (Proamatine) 10 mg PO AC-BID [facility] Last Admin: 08/08/19 20:17 Dose: Not Given Documented by: Pantoprazole Sodium (Protonix) 40 mg PO BID [facility] Last Admin: 08/08/19 09:05 Dose: 40 mg Documented by: Pregabalin (Lyrica) 75 mg PO DAILY [facility] Last Admin: 08/08/19 09:08 Dose: 75 mg Documented by: Silver Sulfadiazine (Silvadene Cream) 1 applic TOPICAL [facility] Last Admin: 08/07/19 20:32 Dose: 1 applic Documented by: Spironolactone (Aldactone) 25 mg PO DAILY [facility] Last Admin: 08/08/19 09:09 Dose: 25 mg Documented by: Physical examination: VITAL SIGNS: 97.8, 76, 20, 11 3/69, 96% on nasal cannula GENERAL: Sitting upon a chair, eating EYES: Pupils equal. Conjunctiva normal. HEENT: External appearance of nose and ears normal, oral cavity grossly normal. NECK: Short, thick, JVD unable to assess; masses not palpable. HEART: Distant heart sounds,; edema present, with pendular lower abdomen. LUNGS: Respiratory rate increased, distance breath sounds. ABDOMEN: Soft, large, some evidence of fungal infection in the groin, nontender, liver spleen not palpable, no masses palpable. PSYCH: Alert and oriented x3; mood and affect normal. NEUROLOGICAL: Cranial nerves grossly intact; no facial asymmetry, power and sensation are decreased distally. INVESTIGATIONS, reviewed in the clinical context: Potassium 4.3 bicarb 42 bun 77 creatinine 3.11 Admission testing: White count 7.1 hemoglobin 9.4 platelets 247 Potassium 5.8 BUN 77 creatinine 3.39 Creatinine January 2019 was 1.71 Troponin I 0.091 proBNP 3500 EKG tracing personally reviewed by me-atrial flutter fibrillation with rate of of 100 Chest x-ray film personally reviewed by me-cardiomegaly and pulmonary edema 2-D echocardiogram from January 2019-EF 60-65% with wall motion abnormality Assessment: -Acute on chronic congestive heart failure exacerbation from diastolic dysfunction EF 60-65%,, on Lasix 40 mg IV every 8 -Persistent atrial fibrillation rate uncontrolled on presentation -Acute renal failure possibly ATN multifactorial, including hypotension, patient also is on Bactrim at home. Which has been discontinued. Slow to improve -Chronic kidney disease stage III probably nephrosclerosis -Acute kidney injury from diuresis -Morbid obesity BMI 64.3 -Metabolic alkalosis from volume contraction -COPD -Diabetes mellitus type 2, uncontrolled with hypoglycemia -GERD -Hyperlipidemia -Essential hypertension -Chronic medical debility -Obstructive sleep apnea -Diabetic peripheral neuropathy -Traumatic hematuria from Mccloud catheter, much improved Disposition: ECF Plan: Patient on daily Zaroxolyn and IV Lasix 40 mg every 8. Continue other medication treatment plan. Follow electrolytes closely. Okay to go to the ECF in next 24-40 hours.
[2019-08-08] MEDS: ATORVASTATIN 10 MG TAB PO SCH (21:26)
[2019-08-08] MEDS: ACETAMINOPHEN TAB 500 MG TAB PO PRN (21:26)
[2019-08-09 06:10] LABS: Glucose,Whole Blood 135 mg/dL (75-99)
[2019-08-09] MEDS: MIDODRINE 5 MG TAB PO SCH ×2 (06:26→18:55)
[2019-08-09] MEDS: SYMBICORT 80-4.5 MCG INHALER INHALATION SCH ×2 (09:05→19:59)
[2019-08-09] MEDS: FUROSEMIDE 10 MG/ML 4 ML VIAL IV SCH ×3 (11:24→22:40)
[2019-08-09] MEDS: DIGOXIN 125 MCG TAB PO SCH (11:24)
[2019-08-09] MEDS: DOCUSATE 100 MG CAP PO SCH ×2 (11:24→22:39)
[2019-08-09] MEDS: acetaZOLAMIDE 250 MG TAB PO SCH ×2 (11:24→22:40)
[2019-08-09] MEDS: CEPHALEXIN 250 MG CAP PO SCH ×3 (11:24→22:39)
[2019-08-09] MEDS: METOLAZONE 5 MG TAB PO SCH (11:24)
[2019-08-09] MEDS: ACETAMINOPHEN TAB 500 MG TAB PO PRN (11:25)
[2019-08-09] MEDS: DABIGATRAN 75 MG CAP PO SCH ×2 (11:25→22:39)
[2019-08-09] MEDS: ALLOPURINOL 100 MG TAB PO SCH ×2 (11:30→22:40)
[2019-08-09] MEDS: METOPROLOL TARTRATE 50 MG TAB PO SCH ×2 (11:30→22:39)
[2019-08-09] MEDS: CHOLECALCIFEROL 1,000 UNIT TAB PO SCH (11:30)
[2019-08-09] MEDS: PANTOPRAZOLE 40 MG TABLET PO SCH ×2 (11:30→22:39)
[2019-08-09] MEDS: PREGABALIN 75 MG CAP PO SCH (11:30)
[2019-08-09] MEDS: SPIRONOLACTONE 25 MG TAB PO SCH (11:31)
[2019-08-09] MEDS: ASPIRIN 81 MG PO SCH (11:31)
--- NOTE | 2019-08-09 11:49 | P.PN ---
Subjective Progress Note Date: 08/09/19 Principal diagnosis: Acute on chronic hypercapnic and hypoxemic respiratory failure secondary to an acute exacerbation of diastolic congestive heart failure. This is a 58-year-old white male patient of Dr. Fry, with past medical history of morbid obesity status post bariatric surgery, diabetes mellitus, hypertension, hyperlipidemia, chronic congestive heart failure, chronic A. fib, former smoker, COPD, obstructive sleep apnea on BiPAP therapy, hypoxemic respiratory failure related to COPD and CHF. Patient presented to the emergency department on 08/02/2019 for evaluation of increasing shortness of breath, confusion, and patient was seeing things that were not there, seeing waves in the carpet, seeing people that were not there. In addition his vision was blurred, he thought he may have been related to low oxygen level, he does not have a pulse ox but he felt that his oxygen level was probably low especially with any exertion. He states he has been compliant with his medications, he is on maintenance dose Lasix at home, he is on oral anticoagulation for history of A. fib. He denied any fever or chills, he did notice some increasing shakes in his legs and body, but denied any chest pain. Patient lives by himself, but he states his diet is probably not very compliant with low-sodium. No fever or chills, he normally wears 4 L of oxygen at home, patient is not familiar with his BiPAP settings, but he states his been using it consistently. Chest x-ray was taken in the emergency department, showing some mild atelectasis at the right lung base, and mild pulmonary congestion slightly increased from prior exam. Blood gas was taken in the emergency department showing acute on chronic hypercapnic respiratory failure. White count was normal, sodium was 136, potassium is 5.8, chloride was 90, CO2 was 39, BNP was elevated at 3500, troponin was 0.091, 0.103, 0.101. Drug screen was done showing benzodiazepines, urinalysis was unremarkable. Patient was then placed on BiPAP with pressures of 12 and 6, and FiO2 45%, became more arousable, he was started on Lasix drip, brain CT was negative. At time of my evaluation patient is awake and alert, he is on 2 L of oxygen, off the BiPAP support, breathing easier, continues on Lasix drip at 10 mg per hour The patient is seen today 08/19/2019 in follow-up on the selective care unit. He is currently sitting up in a chair at the bedside. Awake and alert oriented 3. He is maintaining good O2 saturations in the upper 90s on 4 L/m per nasal cannula. He is alternating with BiPAP. He is afebrile. Hemodynamically stable. Blood glucose 135. He is continued on Diamox, bronchodilators, Symbicort, Keflex. He is continued on IV diuretics 40 mg every 8 hours. Anticoagulated with Pradaxa. Objective - Vital Signs Vital signs: Vital Signs Temp 98.2 F 08/09/19 04:00 Pulse 77 08/09/19 04:00 Resp 20 08/09/19 04:00 BP 117/67 08/09/19 04:00 Pulse Ox 97 08/09/19 04:00 Intake & Output 08/08/19 08/09/19 08/09/19 18:59 06:59 18:59 Intake Total 840 222 240 Output Total 1590 Balance 840 -1368 240 Weight 314.1 kg 214 kg Intake: Oral 840 222 240 Output: Urine 1590 Other: Voiding Method Bedside Commode Bedside Commode Urinal Urinal # Voids 1 1 1 - Exam GENERAL EXAM: Alert, pleasant, 58-year-old morbidly obese white male currently on 4 L of oxygen off BiPAP support, comfortable in no apparent distress. HEAD: Normocephalic/atraumatic. EYES: Normal reaction of pupils, equal size. Conjunctiva pink, sclera white. NOSE: Clear with pink turbinates. THROAT: No erythema or exudates. NECK: No masses, no JVD, no thyroid enlargement, no adenopathy. CHEST: No chest wall deformity. Symmetrical expansion. LUNGS: Equal air entry with faint crackles in posterior bases. CVS: Regular rate and rhythm, normal S1 and S2, no gallops, no murmurs, no rubs ABDOMEN: Soft, nontender. No hepatosplenomegaly, normal bowel sounds, no gu arding or rigidity. Abdomen is obese, with some abdominal wall edema, and some slight erythema, but no weeping EXTREMITIES: No clubbing, 2+ edema, no cyanosis, 2+ pulses and upper and lower extremities. MUSCULOSKELETAL: Muscle strength and tone normal. SPINE: No scoliosis or deformity SKIN: No rashes CENTRAL NERVOUS SYSTEM: No focal deficits, tone is normal in all 4 extremities. PSYCHIATRIC: Alert and oriented -3. Appropriate affect. Intact judgment and insight. - Labs CBC & Chem 7: 08/03/19 04:40 08/08/19 11:53 Labs: Abnormal Lab Results - Last 24 Hours (Table) 08/08/19 08/08/19 08/08/19 Range/Units 11:42 11:53 16:55 Chloride 90 L (98-107) mmol/L Carbon Dioxide 42 H* (22-30) mmol/L BUN 77 H (9-20) mg/dL Creatinine 3.11 H (0.66-1.25) mg/dL Glucose 112 H (74-99) mg/dL POC Glucose (mg/dL) 116 H 133 H (75-99) mg/dL 08/08/19 08/09/19 Range/Units 20:10 06:09 Chloride (98-107) mmol/L Carbon Dioxide (22-30) mmol/L BUN (9-20) mg/dL Creatinine (0.66-1.25) mg/dL Glucose (74-99) mg/dL POC Glucose (mg/dL) 158 H 135 H (75-99) mg/dL Assessment and Plan Assessment: Assessment: #1. Acute on chronic hypercapnic and hypoxemic respiratory failure related to acute exacerbation of chronic congestive heart failure with preserved EF #2. COPD, on home oxygen, baseline FEV1 is unknown #3. Mild hyperkalemia, treated, and improved #4. Positive troponins, could be related to hypoxemia and CHF, patient denied any chest pain, EKG showed A. fib with a rate of 109, without acute ischemic changes #5. Chronic A. fib on Pradaxa #6. Morbid obesity status post bariatric surgery #7. Diabetes mellitus type 2 with neuropathy #8. Obstructive sleep apnea on home BiPAP #9. Hypertension #10. Hyperlipidemia #11. Former smoker #12. Previous MRSA infection Plan: The patient was seen and evaluated by Dr. Gr. He is much more awake and alert today. Narcotics, hypnotics, sedatives have been held. He remains on IV diuretics. We will continue to titrate down the FiO2 as tolerated. O2 saturations greater than 88% are acceptable. We have also recommended a low carbohydrate diet to avoid excess CO2. We educated the patient on low to no potatoes, pasta, rice, bread. We will continue to follow and make further recommendations based on his clinical status. I, the cosigning physician, performed a history & physical examination of the patient. Lungs sounds with faint crackles in the posterior bases Maintaining good O2 saturations in the 90s on 4 L/m alternating with BiPAP. I discussed the assessment and plan of care with my nurse practitioner, Erika Howell. I attest to the above note as dictated by her.
[2019-08-09 12:02] LABS: Glucose,Whole Blood 119 mg/dL (75-99)
[2019-08-09 17:36] LABS: Glucose,Whole Blood 146 mg/dL (75-99)
[2019-08-09] MEDS: IPRATROPIUM-ALBUTEROL 3 ML NEB INHALATION PRN (19:59)
--- NOTE | 2019-08-09 20:03 | PN ---
PROGRESS NOTE The patient is seen for followup for acute kidney injury and severe volume overload. He is currently maintained on IV Lasix. Serum creatinine has been improving over the last few days. The patient has been diuresing. 24 hour urine output of about 2.7 L. I do not have labs from today. PHYSICAL EXAMINATION: Blood pressure is 127/74, heart rate 64 per minute. He is afebrile. Examination of the heart S1, S2. Examination of the lungs, bilateral breath sounds are heard. Abdomen is morbidly obese, nontender. Examination of lower extremities shows bilateral extremities to be wrapped. HEDIS SPECIALIST exam grossly intact. LABS: From yesterday show serum creatinine 3.1, BUN 77, CO2 is 42, sodium 139, potassium 4.3. ASSESSMENT: 1. Acute kidney injury, cardiorenal and secondary to hypotension, now improving. Continue with the Lasix for now. Repeat labs in a.m. Previous creatinine was as low as 1.5 and 1.7 mg/dL in January of 2019. 2. Morbid obesity. 3. Congestive heart failure, acute on top of chronic, mainly diastolic. 4. Chronic kidney disease mostly nephrosclerosis, NKF stage III. Previous creatinine 1.7-1.5 in January of 2019. 5. Atrial fibrillation with controlled ventricular response. 6. Mild hyperkalemia on initial admission, currently resolved. PLAN: Continue with IV Lasix. Check labs in a.m. MMODL / IJN: [id number] /
[2019-08-09 20:30] LABS: Glucose,Whole Blood 155 mg/dL (75-99)
--- NOTE | 2019-08-09 21:24 | P.PN ---
Progress Note - Text Progress Note Date: 08/09/19 Interval history: This is a 58-year-old patient who follows with visiting physicians Dr. Aramis Saleh. Her extensive medical history. Chronic stable medical conditions include atrial fibrillation, COPD, diabetes, GERD, hypertension, hyperlipidemia, Ana arthritis, obstructive sleep apnea, bilateral neuropathy. Patient normally uses a cane to get about. Lives alone. Patient's sister drops and to help about. Patient is morbidly obese with a BMI over 64. Patient's been becoming gradually short of breath for a few days with increasing lower extremity swelling and abdominal wall swelling 2. Slight cough. Appetite is okay. No change in bowel movement. No fever no chills. Patient also was being treated with Bactrim and Keflex appears for cellulitis. Patient is felt to have congestive heart failure. For strict I's and O's Mccloud catheter was placed. Does some blood in the Mccloud catheter. Consultations made to nephrology and cardio G. Denies any pain. Patient admitted with-CHF exacerbation from diastolic dysfunction EF 60-65%, atrial fibrillation with a rapid ventricular rate, acute renal failure possibly ATN. Today-feeling better. Remains on IV Lasix. 40 mg every 8. Remains in negative fluid balance. Eating better. Review of systems: Was done for constitutional, cardiovascular, GI, pulmonary. relevant finding as above Active Medications Acetaminophen (Tylenol Tab) 1,000 mg PO Q6HR PRN PRN Reason: Fever and/ or Pain Last Admin: 08/09/19 11:25 Dose: 1,000 mg Documented by: Acetazolamide (Diamox) 250 mg PO BID [facility] Last Admin: 08/09/19 11:24 Dose: 250 mg Documented by: Albuterol/Ipratropium (Duoneb 0.5 Mg-3 Mg/3 Ml Soln) 3 ml INHALATION RT-QID PRN PRN Reason: Shortness Of Breath Or Wheezing Last Admin: 08/09/19 19:59 Dose: 3 ml Documented by: Allopurinol (Zyloprim) 100 mg PO BID [facility] Last Admin: 08/09/19 11:30 Dose: 100 mg Documented by: Aspirin (Aspirin) 81 mg PO DAILY [facility] Last Admin: 08/09/19 11:31 Dose: 81 mg Documented by: Atorvastatin Calcium (Lipitor) 10 mg PO HS [facility] Last Admin: 08/08/19 21:26 Dose: 10 mg Documented by: Budesonide/Formoterol Fumarate (Symbicort 80-4.5 Mcg Inhaler) 2 puff INHALATION RT-BID [facility] Last Admin: 08/09/19 19:59 Dose: 2 puff Documented by: Cephalexin (Keflex) 250 mg PO Q8HR [facility] Last Admin: 08/09/19 18:56 Dose: 250 mg Documented by: Cholecalciferol (Vitamin D3 (25 Mcg = 1000 Iu)) 2,000 unit PO DAILY [facility] Last Admin: 08/09/19 11:30 Dose: 2,000 unit Documented by: Dabigatran (Pradaxa) 75 mg PO BID [facility] Last Admin: 08/09/19 11:25 Dose: 75 mg Documented by: Digoxin (Lanoxin) 125 mcg PO DAILY [facility] Last Admin: 08/09/19 11:24 Dose: 125 mcg Documented by: Docusate Sodium (Colace) 100 mg PO BID [facility] Last Admin: 08/09/19 11:24 Dose: 100 mg Documented by: Furosemide (Lasix) 40 mg IV Q8HR [facility] Last Admin: 08/09/19 18:56 Dose: 40 mg Documented by: Lactic Acid (Lac-Hydrin 12%) 1 applic TOPICAL BID PRN PRN Reason: Dry Skin Last Admin: 08/04/19 10:11 Dose: 1 applic Documented by: Metolazone (Zaroxolyn) 5 mg PO DAILY [facility] Last Admin: 08/09/19 11:24 Dose: 5 mg Documented by: Metoprolol Tartrate (Lopressor) 100 mg PO BID [facility] Last Admin: 08/09/19 11:30 Dose: 100 mg Documented by: Miconazole Nitrate (Monistat-Derm) 1 applic TOPICAL DAILY PRN PRN Reason: YEAST INFECTION Midodrine (Proamatine) 10 mg PO AC-BID [facility] Last Admin: 08/09/19 18:55 Dose: 10 mg Documented by: Pantoprazole Sodium (Protonix) 40 mg PO BID [facility] Last Admin: 08/09/19 11:30 Dose: 40 mg Documented by: Pregabalin (Lyrica) 75 mg PO DAILY [facility] Last Admin: 08/09/19 11:30 Dose: 75 mg Documented by: Silver Sulfadiazine (Silvadene Cream) 1 applic TOPICAL HS [facility] Last Admin: 08/08/19 21:26 Dose: 1 applic Documented by: Spironolactone (Aldactone) 25 mg PO DAILY [facility] Last Admin: 08/09/19 11:31 Dose: 25 mg Documented by: Physical examination: VITAL SIGNS: 98.2, 77, 20, 11 7/67, 97% on BiPAP GENERAL: Sitting up, more comfortable EYES: Pupils equal. Conjunctiva normal. HEENT: External appearance of nose and ears normal, oral cavity grossly normal. NECK: Short, thick, JVD unable to assess; masses not palpable. HEART: Distant heart sounds,; edema present, with pendular lower abdomen. LUNGS: Respiratory rate increased, distance breath sounds. ABDOMEN: Soft, large, some evidence of fungal infection in the groin, nontender, liver spleen not palpable, no masses palpable. PSYCH: Alert and oriented x3; mood and affect normal. NEUROLOGICAL: Cranial nerves grossly intact; no facial asymmetry, power and sensation are decreased distally. INVESTIGATIONS, reviewed in the clinical context: Accu-Cheks noted Admission testing: White count 7.1 hemoglobin 9.4 platelets 247 Potassium 5.8 BUN 77 creatinine 3.39 Creatinine January 2019 was 1.71 Troponin I 0.091 proBNP 3500 EKG tracing personally reviewed by me-atrial flutter fibrillation with rate of of 100 Chest x-ray film personally reviewed by me-cardiomegaly and pulmonary edema 2-D echocardiogram from January 2019-EF 60-65% with wall motion abnormality Assessment: -Acute on chronic congestive heart failure exacerbation from diastolic dysfunction EF 60-65%,, on Lasix 40 mg IV every 8 -Persistent atrial fibrillation rate uncontrolled on presentation -Acute renal failure possibly ATN multifactorial, including hypotension, patient also is on Bactrim at home. Which has been discontinued. Slow to improve -Chronic kidney disease stage III probably nephrosclerosis -Acute kidney injury from diuresis -Morbid obesity BMI 64.3 -Metabolic alkalosis from volume contraction -COPD -Diabetes mellitus type 2, uncontrolled with hypoglycemia -GERD -Hyperlipidemia -Essential hypertension -Chronic medical debility -Obstructive sleep apnea -Diabetic peripheral neuropathy -Traumatic hematuria from Mccloud catheter, much improved Disposition: ECF Plan: Improving slowly. Doing better. Continues to be negative fluid balance. Continue with IV Lasix and Zaroxolyn. Follow with nephrology. Care discussed with the patient.
[2019-08-09] MEDS: ATORVASTATIN 10 MG TAB PO SCH (22:40)
[2019-08-10] MEDS: ACETAMINOPHEN TAB 500 MG TAB PO PRN ×2 (02:03→17:18)
[2019-08-10] MEDS: MIDODRINE 5 MG TAB PO SCH ×2 (06:13→17:19)
[2019-08-10 06:21] LABS: Glucose,Whole Blood 130 mg/dL (75-99)
[2019-08-10 06:33] LABS: Calcium 9.3 mg/dL (8.4-10.2); Potassium 3.8 mmol/L (3.5-5.1)
[2019-08-10] MEDS: SYMBICORT 80-4.5 MCG INHALER INHALATION SCH ×2 (07:44→19:51)
[2019-08-10] MEDS: CEPHALEXIN 250 MG CAP PO SCH ×3 (09:27→23:21)
[2019-08-10] MEDS: DIGOXIN 125 MCG TAB PO SCH (09:27)
[2019-08-10] MEDS: DOCUSATE 100 MG CAP PO SCH ×2 (09:27→21:23)
[2019-08-10] MEDS: METOLAZONE 5 MG TAB PO SCH (09:27)
[2019-08-10] MEDS: METOPROLOL TARTRATE 50 MG TAB PO SCH ×2 (09:28→21:22)
[2019-08-10] MEDS: ASPIRIN 81 MG PO SCH (09:28)
[2019-08-10] MEDS: ALLOPURINOL 100 MG TAB PO SCH ×2 (09:28→21:23)
[2019-08-10] MEDS: CHOLECALCIFEROL 1,000 UNIT TAB PO SCH (09:28)
[2019-08-10] MEDS: PREGABALIN 75 MG CAP PO SCH (09:28)
[2019-08-10] MEDS: PANTOPRAZOLE 40 MG TABLET PO SCH ×2 (09:28→21:22)
[2019-08-10] MEDS: SPIRONOLACTONE 25 MG TAB PO SCH (09:28)
[2019-08-10] MEDS: FUROSEMIDE 10 MG/ML 4 ML VIAL IV SCH ×2 (09:28→21:22)
[2019-08-10] MEDS: acetaZOLAMIDE 250 MG TAB PO SCH ×2 (09:28→21:23)
[2019-08-10] MEDS: DABIGATRAN 75 MG CAP PO SCH ×2 (09:29→21:22)
[2019-08-10 11:56] LABS: Glucose,Whole Blood 127 mg/dL (75-99)
--- NOTE | 2019-08-10 15:16 | PN ---
PROGRESS NOTE Patient is seen for followup for acute kidney injury and volume overload. He is currently maintained on IV Lasix. Renal function continues to improve. Patient's weight has been improving. Overall, he states he feels better. PHYSICAL EXAMINATION: On examination, blood pressure was 136/63, heart rate 80 per minute. He is afebrile. Examination of the heart S1, S2. Examination of the lungs, bilateral breath sounds are heard. Abdomen is soft, nontender. Examination of the lower extremities shows edema 3+ bilaterally with chronic skin changes. Both extremities are currently wrapped. LABS: Today show sodium 139, potassium 3.8, chloride 91, CO2 is 44, BUN 68, creatinine 2.41. ASSESSMENT: 1. Acute kidney injury, cardiorenal and secondary to hypotension, now improving. Patient is maintained on Lasix IV 40 mg q.8 hours. Renal function continues to improve. However, he has metabolic alkalosis, which is slightly worse today. Therefore, I will decrease the Lasix to q.12 hours. 2. Severe volume overload, slowly improving. 3. Morbid obesity. 4. Metabolic alkalosis secondary to diuresis as well as compensatory mechanism for severe obstructive sleep apnea and chronic obstructive pulmonary disease, currently maintained on Diamox. 5. Chronic kidney disease secondary to nephrosclerosis, stage III. Previous creatinine 1.5-1.7 mg/dL. 6. Atrial fibrillation with controlled ventricular response. PLAN: Decrease Lasix to 40 mg IV q.12 hours. MMODL / IJN: [id number] /
--- NOTE | 2019-08-10 15:24 | P.PN ---
Subjective Progress Note Date: 08/10/19 Principal diagnosis: Acute on chronic hypercapnic and hypoxemic respiratory failure secondary to an acute exacerbation of diastolic congestive heart failure. This is a 58-year-old white male patient of Dr. Fry, with past medical history of morbid obesity status post bariatric surgery, diabetes mellitus, hypertension, hyperlipidemia, chronic congestive heart failure, chronic A. fib, former smoker, COPD, obstructive sleep apnea on BiPAP therapy, hypoxemic respiratory failure related to COPD and CHF. Patient presented to the emergency department on 08/02/2019 for evaluation of increasing shortness of breath, confusion, and patient was seeing things that were not there, seeing waves in the carpet, seeing people that were not there. In addition his vision was blurred, he thought he may have been related to low oxygen level, he does not have a pulse ox but he felt that his oxygen level was probably low especially with any exertion. He states he has been compliant with his medications, he is on maintenance dose Lasix at home, he is on oral anticoagulation for history of A. fib. He denied any fever or chills, he did notice some increasing shakes in his legs and body, but denied any chest pain. Patient lives by himself, but he states his diet is probably not very compliant with low-sodium. No fever or chills, he normally wears 4 L of oxygen at home, patient is not familiar with his BiPAP settings, but he states his been using it consistently. Chest x-ray was taken in the emergency department, showing some mild atelectasis at the right lung base, and mild pulmonary congestion slightly increased from prior exam. Blood gas was taken in the emergency department showing acute on chronic hypercapnic respiratory failure. White count was normal, sodium was 136, potassium is 5.8, chloride was 90, CO2 was 39, BNP was elevated at 3500, troponin was 0.091, 0.103, 0.101. Drug screen was done showing benzodiazepines, urinalysis was unremarkable. Patient was then placed on BiPAP with pressures of 12 and 6, and FiO2 45%, became more arousable, he was started on Lasix drip, brain CT was negative. At time of my evaluation patient is awake and alert, he is on 2 L of oxygen, off the BiPAP support, breathing easier, continues on Lasix drip at 10 mg per hour The patient is seen today 08/19/2019 in follow-up on the selective care unit. He is currently sitting up in a chair at the bedside. Awake and alert oriented 3. He is maintaining good O2 saturations in the upper 90s on 4 L/m per nasal cannula. He is alternating with BiPAP. He is afebrile. Hemodynamically stable. Blood glucose 135. He is continued on Diamox, bronchodilators, Symbicort, Keflex. He is continued on IV diuretics 40 mg every 8 hours. Anticoagulated with Pradaxa. The patient is seen today 08/10/2019 in follow-up on the selective care unit. He is currently sitting up in chair at the bedside. Awake and alert and oriented 3. No further episodes of altered mental status or obtundation. He is maintaining good O2 saturation in low 90s on 2 L/m per nasal cannula. Sodium 139. Chloride 91. Bicarb 44. Creatinine 2.41. He remains on Lasix 40 mg IV every 12 hours. Objective - Vital Signs Vital signs: Vital Signs Temp 98.3 F 08/10/19 08:00 Pulse 76 08/10/19 12:00 Resp 19 08/10/19 15:16 BP 139/72 08/10/19 12:00 Pulse Ox 92 L 08/10/19 12:00 Intake & Output 08/09/19 08/10/19 08/10/19 18:59 06:59 18:59 Intake Total 960 200 480 Output Total 1600 600 Balance 960 -1400 -120 Weight 210.8 kg Intake: Oral 960 200 480 Output: Urine 1600 600 Other: Voiding Method Bedside Commode Bedside Commode Bedside Commode Urinal Urinal Urinal # Voids 1 1 # Bowel Movements 2 - Exam GENERAL EXAM: Alert, 58-year-old morbidly obese white male currently on 4 L of oxygen, comfortable in no apparent distress. HEAD: Normocephalic/atraumatic. EYES: Normal reaction of pupils, equal size. Conjunctiva pink, sclera white. NOSE: Clear with pink turbinates. THROAT: No erythema or exudates. NECK: No masses, no JVD, no thyroid enlargement, no adenopathy. CHEST: No chest wall deformity. Symmetrical expansion. LUNGS: Equal air entry with faint crackles in posterior bases. CVS: Regular rate and rhythm, normal S1 and S2, no gallops, no murmurs, no rubs ABDOMEN: Soft, nontender. No hepatosplenomegaly, normal bowel sounds, no guarding or rigidity. Abdomen is obese, with some abdominal wall edema, and some slight erythema, but no weeping EXTREMITIES: No clubbing, 2+ edema, no cyanosis, 2+ pulses and upper and lower extremities. MUSCULOSKELETAL: Muscle strength and tone normal. SPINE: No scoliosis or deformity SKIN: No rashes CENTRAL NERVOUS SYSTEM: No focal deficits, tone is normal in all 4 extremities. PSYCHIATRIC: Alert and oriented -3. Appropriate affect. Intact judgment and insight. - Labs CBC & Chem 7: 08/03/19 04:40 08/10/19 05:50 Labs: Abnormal Lab Results - Last 24 Hours (Table) 08/09/19 08/09/19 08/10/19 Range/Units 17:23 20:28 05:50 Chloride 91 L (98-107) mmol/L Carbon Dioxide 44 H* (22-30) mmol/L BUN 68 H (9-20) mg/dL Creatinine 2.41 H (0.66-1.25) mg/dL Glucose 113 H (74-99) mg/dL POC Glucose (mg/dL) 146 H 155 H (75-99) mg/dL 08/10/19 08/10/19 Range/Units 06:19 11:51 Chloride (98-107) mmol/L Carbon Dioxide (22-30) mmol/L BUN (9-20) mg/dL Creatinine (0.66-1.25) mg/dL Glucose (74-99) mg/dL POC Glucose (mg/dL) 130 H 127 H (75-99) mg/dL Assessment and Plan Assessment: Assessment: #1. Acute on chronic hypercapnic and hypoxemic respiratory failure related to acute exacerbation of chronic congestive heart failure with preserved EF #2. COPD, on home oxygen, baseline FEV1 is unknown #3. Acute on chronic renal failure. Creatinine improving currently 2.41. #4. Positive troponins, could be related to hypoxemia and CHF, patient denied any chest pain, EKG showed A. fib with a rate of 109, without acute ischemic changes #5. Chronic A. fib on Pradaxa #6. Morbid obesity status post bariatric surgery #7. Diabetes mellitus type 2 with neuropathy #8. Obstructive sleep apnea on home BiPAP #9. Hypertension #10. Hyperlipidemia #11. Former smoker #12. Previous MRSA infection Plan: The patient was seen and evaluated by Dr. Gr. He is much more awake and alert today. We will continue to follow and make further recommendations based on his clinical status. I, the cosigning physician, performed a history & physical examination of the patient. Lungs sounds with faint crackles in the posterior bases Maintaining good O2 saturations in the 90s on 4 L/m alternating with BiPAP. I discussed the assessment and plan of care with my nurse practitioner, Erika Howell. I attest to the above note as dictated by her.
[2019-08-10 16:34] LABS: Glucose,Whole Blood 136 mg/dL (75-99)
[2019-08-10] MEDS: IPRATROPIUM-ALBUTEROL 3 ML NEB INHALATION PRN (19:48)
[2019-08-10] MEDS: ATORVASTATIN 10 MG TAB PO SCH (21:22)
[2019-08-10 21:23] LABS: Glucose,Whole Blood 142 mg/dL (75-99)
[2019-08-10] MEDS ORDERED: BUMETANIDE 10 MG in DEXTROSE 5% IN WATER 60 ML IV SCH ×2 (22:45)
--- NOTE | 2019-08-10 22:45 | P.PN ---
Progress Note - Text Progress Note Date: 08/10/19 Interval history: This is a 58-year-old patient who follows with visiting physicians Dr. Aramis Saleh. Her extensive medical history. Chronic stable medical conditions include atrial fibrillation, COPD, diabetes, GERD, hypertension, hyperlipidemia, Ana arthritis, obstructive sleep apnea, bilateral neuropathy. Patient normally uses a cane to get about. Lives alone. Patient's sister drops and to help about. Patient is morbidly obese with a BMI over 64. Patient's been becoming gradually short of breath for a few days with increasing lower extremity swelling and abdominal wall swelling 2. Slight cough. Appetite is okay. No change in bowel movement. No fever no chills. Patient also was being treated with Bactrim and Keflex appears for cellulitis. Patient is felt to have congestive heart failure. For strict I's and O's Mccloud catheter was placed. Does some blood in the Mccloud catheter. Consultations made to nephrology and cardio G. Denies any pain. Patient admitted with-CHF exacerbation from diastolic dysfunction EF 60-65%, atrial fibrillation with a rapid ventricular rate, acute renal failure possibly ATN. Today-complaining of some cramps in lower extremity. On IV Lasix. Has been noticing well. Breathing is improved.. Review of systems: Was done for constitutional, cardiovascular, GI, pulmonary. relevant finding as above Active Medications Acetaminophen (Tylenol Tab) 1,000 mg PO Q6HR PRN PRN Reason: Fever and/ or Pain Last Admin: 08/10/19 17:18 Dose: 1,000 mg Documented by: Acetazolamide (Diamox) 250 mg PO BID [facility] Last Admin: 08/10/19 21:23 Dose: 250 mg Documented by: Albuterol/Ipratropium (Duoneb 0.5 Mg-3 Mg/3 Ml Soln) 3 ml INHALATION RT-QID PRN PRN Reason: Shortness Of Breath Or Wheezing Last Admin: 08/10/19 19:48 Dose: 3 ml Documented by: Allopurinol (Zyloprim) 100 mg PO BID [facility] Last Admin: 08/10/19 21:23 Dose: 100 mg Documented by: Aspirin (Aspirin) 81 mg PO DAILY [facility] Last Admin: 08/10/19 09:28 Dose: 81 mg Documented by: Atorvastatin Calcium (Lipitor) 10 mg PO HS [facility] Last Admin: 08/10/19 21:22 Dose: 10 mg Documented by: Budesonide/Formoterol Fumarate (Symbicort 80-4.5 Mcg Inhaler) 2 puff INHALATION RT-BID [facility] Last Admin: 08/10/19 19:51 Dose: Not Given Documented by: Cephalexin (Keflex) 250 mg PO Q8HR [facility] Last Admin: 08/10/19 17:18 Dose: 250 mg Documented by: Cholecalciferol (Vitamin D3 (25 Mcg = 1000 Iu)) 2,000 unit PO DAILY [facility] Last Admin: 08/10/19 09:28 Dose: 2,000 unit Documented by: Dabigatran (Pradaxa) 75 mg PO BID [facility] Last Admin: 08/10/19 21:22 Dose: 75 mg Documented by: Digoxin (Lanoxin) 125 mcg PO DAILY [facility] Last Admin: 08/10/19 09:27 Dose: 125 mcg Documented by: Docusate Sodium (Colace) 100 mg PO BID [facility] Last Admin: 08/10/19 21:23 Dose: Not Given Documented by: Furosemide (Lasix) 40 mg IV Q12HR [facility] Last Admin: 08/10/19 21:22 Dose: 40 mg Documented by: Lactic Acid (Lac-Hydrin 12%) 1 applic TOPICAL BID PRN PRN Reason: Dry Skin Last Admin: 08/04/19 10:11 Dose: 1 applic Documented by: Metolazone (Zaroxolyn) 5 mg PO DAILY [facility] Last Admin: 08/10/19 09:27 Dose: 5 mg Documented by: Metoprolol Tartrate (Lopressor) 100 mg PO BID [facility] Last Admin: 08/10/19 21:22 Dose: 100 mg Documented by: Miconazole Nitrate (Monistat-Derm) 1 applic TOPICAL DAILY PRN PRN Reason: YEAST INFECTION Midodrine (Proamatine) 10 mg PO AC-BID [facility] Last Admin: 08/10/19 17:19 Dose: 10 mg Documented by: Pantoprazole Sodium (Protonix) 40 mg PO BID [facility] Last Admin: 08/10/19 21:22 Dose: 40 mg Documented by: Pregabalin (Lyrica) 75 mg PO DAILY [facility] Last Admin: 08/10/19 09:28 Dose: 75 mg Documented by: Silver Sulfadiazine (Silvadene Cream) 1 applic [facility] Last Admin: 08/10/19 21:23 Dose: 1 applic Documented by: Spironolactone (Aldactone) 25 mg PO DAILY [facility] Last Admin: 08/10/19 09:28 Dose: 25 mg Documented by: Physical examination: VITAL SIGNS: 98.3, 18, 20, 136 visit history, 90% on 2 L GENERAL: Laying in bed, awake EYES: Pupils equal. Conjunctiva normal. HEENT: External appearance of nose and ears normal, oral cavity grossly normal. NECK: Short, thick, JVD unable to assess; masses not palpable. HEART: Distant heart sounds,; edema present, with pendular lower abdomen. LUNGS: Respiratory rate increased, distance breath sounds. ABDOMEN: Soft, large, some evidence of fungal infection in the groin, nontender, liver spleen not palpable, no masses palpable. PSYCH: Alert and oriented x3; mood and affect normal. NEUROLOGICAL: Cranial nerves grossly intact; no facial asymmetry, power and sensation are decreased distally. INVESTIGATIONS, reviewed in the clinical context: Potassium 3.8 by cough 44 BUN 68 creatine 2.41 Admission testing: White count 7.1 hemoglobin 9.4 platelets 247 Potassium 5.8 BUN 77 creatinine 3.39 Creatinine January 2019 was 1.71 Troponin I 0.091 proBNP 3500 EKG tracing personally reviewed by me-atrial flutter fibrillation with rate of of 100 Chest x-ray film personally reviewed by me-cardiomegaly and pulmonary edema 2-D echocardiogram from January 2019-EF 60-65% with wall motion abnormality Assessment: -Acute on chronic congestive heart failure exacerbation from diastolic dysfunction EF 60-65%,, on Lasix 40 mg IV every 8 -Persistent atrial fibrillation rate uncontrolled on presentation -Acute renal failure possibly ATN multifactorial, including hypotension, patient also is on Bactrim home. Which has been discontinued. Slow to improve -Chronic kidney disease stage III probably nephrosclerosis -Acute kidney injury from diuresis -Morbid obesity BMI 64.3 -Metabolic alkalosis from volume contraction -COPD -Diabetes mellitus type 2, uncontrolled with hypoglycemia -GERD -Hyperlipidemia -Essential hypertension -Chronic medical debility -Obstructive sleep apnea -Diabetic peripheral neuropathy -Traumatic hematuria from Mccloud catheter, much improved Disposition: ECF Plan: Patient seen by nephrology earlier. Lasix decreased to 40 mg every 12. Patient still is significant edema. Has metabolic alkalosis. Oriented Diamox. We'll give overnight 12 hours of Bumex drip.
[2019-08-11 05:56] LABS: Glucose,Whole Blood 146 mg/dL (75-99)
[2019-08-11] MEDS: MIDODRINE 5 MG TAB PO SCH ×2 (06:45→17:25)
[2019-08-11 06:56] LABS: Calcium 9.4 mg/dL (8.4-10.2); Potassium 3.8 mmol/L (3.5-5.1)
[2019-08-11] MEDS: IPRATROPIUM-ALBUTEROL 3 ML NEB INHALATION PRN ×2 (08:11→20:28)
[2019-08-11] MEDS: SYMBICORT 80-4.5 MCG INHALER INHALATION SCH ×2 (08:12→20:28)
[2019-08-11] MEDS: FUROSEMIDE 10 MG/ML 4 ML VIAL IV SCH (08:29)
[2019-08-11] MEDS: ASPIRIN 81 MG PO SCH (08:30)
[2019-08-11] MEDS: DOCUSATE 100 MG CAP PO SCH ×2 (08:30→20:27)
[2019-08-11] MEDS: acetaZOLAMIDE 250 MG TAB PO SCH ×2 (08:30→20:27)
[2019-08-11] MEDS: SPIRONOLACTONE 25 MG TAB PO SCH (08:30)
[2019-08-11] MEDS: PREGABALIN 75 MG CAP PO SCH (08:30)
[2019-08-11] MEDS: PANTOPRAZOLE 40 MG TABLET PO SCH ×2 (08:30→20:28)
[2019-08-11] MEDS: ALLOPURINOL 100 MG TAB PO SCH ×2 (08:30→22:39)
[2019-08-11] MEDS: DIGOXIN 125 MCG TAB PO SCH (08:30)
[2019-08-11] MEDS: CHOLECALCIFEROL 1,000 UNIT TAB PO SCH (08:30)
[2019-08-11] MEDS: METOPROLOL TARTRATE 50 MG TAB PO SCH ×2 (08:30→20:28)
[2019-08-11] MEDS: CEPHALEXIN 250 MG CAP PO SCH ×3 (08:31→22:39)
[2019-08-11] MEDS: DABIGATRAN 75 MG CAP PO SCH ×2 (08:31→22:38)
[2019-08-11] MEDS: METOLAZONE 5 MG TAB PO SCH (08:31)
[2019-08-11] MEDS: BUMETANIDE 10 MG in DEXTROSE 5% IN WATER 60 ML IV SCH ×4 (11:05→22:39)
[2019-08-11 12:26] LABS: Glucose,Whole Blood 128 mg/dL (75-99)
--- NOTE | 2019-08-11 15:28 | P.PN ---
Subjective Progress Note Date: 08/11/19 Principal diagnosis: Acute on chronic hypercapnic and hypoxemic respiratory failure secondary to an acute exacerbation of diastolic congestive heart failure. This is a 58-year-old white male patient of Dr. Fry, with past medical history of morbid obesity status post bariatric surgery, diabetes mellitus, hypertension, hyperlipidemia, chronic congestive heart failure, chronic A. fib, former smoker, COPD, obstructive sleep apnea on BiPAP therapy, hypoxemic respiratory failure related to COPD and CHF. Patient presented to the emergency department on 08/02/2019 for evaluation of increasing shortness of breath, confusion, and patient was seeing things that were not there, seeing waves in the carpet, seeing people that were not there. In addition his vision was blurred, he thought he may have been related to low oxygen level, he does not have a pulse ox but he felt that his oxygen level was probably low especially with any exertion. He states he has been compliant with his medications, he is on maintenance dose Lasix at home, he is on oral anticoagulation for history of A. fib. He denied any fever or chills, he did notice some increasing shakes in his legs and body, but denied any chest pain. Patient lives by himself, but he states his diet is probably not very compliant with low-sodium. No fever or chills, he normally wears 4 L of oxygen at home, patient is not familiar with his BiPAP settings, but he states his been using it consistently. Chest x-ray was taken in the emergency department, showing some mild atelectasis at the right lung base, and mild pulmonary congestion slightly increased from prior exam. Blood gas was taken in the emergency department showing acute on chronic hypercapnic respiratory failure. White count was normal, sodium was 136, potassium is 5.8, chloride was 90, CO2 was 39, BNP was elevated at 3500, troponin was 0.091, 0.103, 0.101. Drug screen was done showing benzodiazepines, urinalysis was unremarkable. Patient was then placed on BiPAP with pressures of 12 and 6, and FiO2 45%, became more arousable, he was started on Lasix drip, brain CT was negative. At time of my evaluation patient is awake and alert, he is on 2 L of oxygen, off the BiPAP support, breathing easier, continues on Lasix drip at 10 mg per hour The patient is seen today 08/19/2019 in follow-up on the selective care unit. He is currently sitting up in a chair at the bedside. Awake and alert oriented 3. He is maintaining good O2 saturations in the upper 90s on 4 L/m per nasal cannula. He is alternating with BiPAP. He is afebrile. Hemodynamically stable. Blood glucose 135. He is continued on Diamox, bronchodilators, Symbicort, Keflex. He is continued on IV diuretics 40 mg every 8 hours. Anticoagulated with Pradaxa. The patient is seen today 08/10/2019 in follow-up on the selective care unit. He is currently sitting up in chair at the bedside. Awake and alert and oriented 3. No further episodes of altered mental status or obtundation. He is maintaining good O2 saturation in low 90s on 2 L/m per nasal cannula. Sodium 139. Chloride 91. Bicarb 44. Creatinine 2.41. He remains on Lasix 40 mg IV every 12 hours. The patient is seen today 08/11/2018 in follow-up on the selective care unit. He is currently resting comfortably in bed. Awake and alert oriented 3. No worsening shortness of breath, cough or congestion. Maintaining good O2 saturations in the 90s on 2 L/m per nasal cannula. He is afebrile. Hemodynamically stable. Sodium 140. Potassium 3.8. Bicarb 44. Creatinine 2.21. Glucose 128. Continued on DuoNeb inhalations, Symbicort, diuretics. Objective - Vital Signs Vital signs: Vital Signs Temp 98.5 F 08/11/19 11:31 Pulse 71 08/11/19 11:31 Resp 18 08/11/19 11:31 BP 119/61 08/11/19 11:31 Pulse Ox 93 L 08/11/19 11:31 Intake & Output 08/10/19 08/11/19 08/11/19 18:59 06:59 18:59 Intake Total 720 960 Output Total 2600 1850 500 Balance -1880 -1849 460 Weight 209.1 kg Intake: Oral 720 960 Output: Urine 2600 1850 500 Other: Voiding Method Bedside Commode Bedside Commode Bedside Commode Urinal Urinal Urinal # Bowel Movements 5 1 - Exam GENERAL EXAM: Alert, 58-year-old morbidly obese white male currently on 2 L of oxygen, comfortable in no apparent distress. HEAD: Normocephalic/atraumatic. EYES: Normal reaction of pupils, equal size. Conjunctiva pink, sclera white. NOSE: Clear with pink turbinates. THROAT: No erythema or exudates. NECK: No masses, no JVD, no thyroid enlargement, no adenopathy. CHEST: No chest wall deformity. Symmetrical expansion. LUNGS: Equal air entry with faint crackles in posterior bases. CVS: Regular rate and rhythm, normal S1 and S2, no gallops, no murmurs, no rubs ABDOMEN: Soft, nontender. No hepatosplenomegaly, normal bowel sounds, no guarding or rigidity. Abdomen is obese, with some abdominal wall edema, and some slight erythema, but no weeping EXTREMITIES: No clubbing, 2+ edema, no cyanosis, 2+ pulses and upper and lower extremities. MUSCULOSKELETAL: Muscle strength and tone normal. SPINE: No scoliosis or deformity SKIN: No rashes CENTRAL NERVOUS SYSTEM: No focal deficits, tone is normal in all 4 extremities. PSYCHIATRIC: Alert and oriented -3. Appropriate affect. Intact judgment and insight. - Labs CBC & Chem 7: 08/03/19 04:40 08/11/19 06:16 Labs: Abnormal Lab Results - Last 24 Hours (Table) 08/10/19 08/10/19 08/11/19 Range/Units 16:28 21:00 05:46 Chloride (98-107) mmol/L Carbon Dioxide (22-30) mmol/L BUN (9-20) mg/dL Creatinine (0.66-1.25) mg/dL Glucose (74-99) mg/dL POC Glucose (mg/dL) 136 H 142 H 146 H (75-99) mg/dL 08/11/19 08/11/19 Range/Units 06:16 12:08 Chloride 89 L (98-107) mmol/L Carbon Dioxide 44 H* (22-30) mmol/L BUN 67 H (9-20) mg/dL Creatinine 2.21 H (0.66-1.25) mg/dL Glucose 116 H (74-99) mg/dL POC Glucose (mg/dL) 128 H (75-99) mg/dL Assessment and Plan Assessment: Assessment: #1. Acute on chronic hypercapnic and hypoxemic respiratory failure related to acute exacerbation of chronic congestive heart failure with preserved EF #2. COPD, on home oxygen, baseline FEV1 is unknown #3. Acute on chronic renal failure. Creatinine improving currently 2.21. #4. Positive troponins, could be related to hypoxemia and CHF, patient denied any chest pain, EKG showed A. fib with a rate of 109, without acute ischemic changes #5. Chronic A. fib on Pradaxa #6. Morbid obesity status post bariatric surgery, BMI 60.8 kg/m #7. Diabetes mellitus type 2 with neuropathy #8. Obstructive sleep apnea on home BiPAP #9. Hypertension #10. Hyperlipidemia #11. Former smoker #12. Previous MRSA infection Plan: The patient was seen and evaluated by Dr. Gr. He is currently stable from the pulmonary standpoint. We will continue to follow and make further recommendations based on his clinical status. I, the cosigning physician, performed a history & physical examination of the patient. Lungs sounds with faint crackles in the posterior bases Maintaining good O2 saturations in the 90s on 2 L/m alternating with BiPAP. I discussed the assessment and plan of care with my nurse practitioner, Erika Howell. I attest to the above note as dictated by her.
[2019-08-11 16:50] LABS: Glucose,Whole Blood 139 mg/dL (75-99)
--- NOTE | 2019-08-11 18:15 | P.PN ---
Progress Note - Text Progress Note Date: 08/11/19 Interval history: This is a 58-year-old patient who follows with visiting physicians Dr. Aramis Saleh. Her extensive medical history. Chronic stable medical conditions include atrial fibrillation, COPD, diabetes, GERD, hypertension, hyperlipidemia, Ana arthritis, obstructive sleep apnea, bilateral neuropathy. Patient normally uses a cane to get about. Lives alone. Patient's sister drops and to help about. Patient is morbidly obese with a BMI over 64. Patient's been becoming gradually short of breath for a few days with increasing lower extremity swelling and abdominal wall swelling 2. Slight cough. Appetite is okay. No change in bowel movement. No fever no chills. Patient also was being treated with Bactrim and Keflex appears for cellulitis. Patient is felt to have congestive heart failure. For strict I's and O's Mccloud catheter was placed. Does some blood in the Mccloud catheter. Consultations made to nephrology and cardio G. Denies any pain. Patient admitted with-CHF exacerbation from diastolic dysfunction EF 60-65%, atrial fibrillation with a rapid ventricular rate, acute renal failure possibly ATN. Today-Sitting up in a chair. Tired. Tolerating his diet. Edema still present. Review of systems: Was done for constitutional, cardiovascular, GI, pulmonary. relevant finding as above Active Medications Acetaminophen (Tylenol Tab) 1,000 mg PO Q6HR PRN PRN Reason: Fever and/ or Pain Last Admin: 08/10/19 17:18 Dose: 1,000 mg Documented by: Acetazolamide (Diamox) 250 mg PO BID [facility] Last Admin: 08/11/19 08:30 Dose: 250 mg Documented by: Albuterol/Ipratropium (Duoneb 0.5 Mg-3 Mg/3 Ml Soln) 3 ml INHALATION RT-QID PRN PRN Reason: Shortness Of Breath Or Wheezing Last Admin: 08/11/19 08:11 Dose: 3 ml Documented by: Allopurinol (Zyloprim) 100 mg PO BID [facility] Last Admin: 08/11/19 08:30 Dose: 100 mg Documented by: Aspirin (Aspirin) 81 mg PO DAILY [facility] Last Admin: 08/11/19 08:30 Dose: 81 mg Documented by: Atorvastatin Calcium (Lipitor) 10 mg PO HS [facility] Last Admin: 08/10/19 21:22 Dose: 10 mg Documented by: Budesonide/Formoterol Fumarate (Symbicort 80-4.5 Mcg Inhaler) 2 puff INHALATION RT-BID [facility] Last Admin: 08/11/19 08:12 Dose: 2 puff Documented by: Cephalexin (Keflex) 250 mg PO Q6HR [facility] Last Admin: 08/11/19 17:25 Dose: 250 mg Documented by: Cholecalciferol (Vitamin D3 (25 Mcg = 1000 Iu)) 2,000 unit PO DAILY [facility] Last Admin: 08/11/19 08:30 Dose: 2,000 unit Documented by: Dabigatran (Pradaxa) 75 mg PO BID [facility] Last Admin: 08/11/19 08:31 Dose: 75 mg Documented by: Digoxin (Lanoxin) 125 mcg PO DAILY [facility] Last Admin: 08/11/19 08:30 Dose: 125 mcg Documented by: Docusate Sodium (Colace) 100 mg PO BID [facility] Last Admin: 08/11/19 08:30 Dose: 100 mg Documented by: Bumetanide 10 mg/ Dextrose/ (Water) 100 mls @ 10 mls/hr IV .Q10H [facility] Last Admin: 08/11/19 11:05 Dose: 1 mg/hr, 10 mls/hr Documented by: Lactic Acid (Lac-Hydrin 12%) 1 applic TOPICAL BID PRN PRN Reason: Dry Skin Last Admin: 08/04/19 10:11 Dose: 1 applic Documented by: Metolazone (Zaroxolyn) 5 mg PO DAILY [facility] Last Admin: 08/11/19 08:31 Dose: 5 mg Documented by: Metoprolol Tartrate (Lopressor) 100 mg PO BID [facility] Last Admin: 08/11/19 08:30 Dose: 100 mg Documented by: Miconazole Nitrate (Monistat-Derm) 1 applic TOPICAL DAILY PRN PRN Reason: YEAST INFECTION Last Admin: 08/11/19 08:32 Dose: 1 applic Documented by: Midodrine (Proamatine) 10 mg PO AC-BID [facility] Last Admin: 08/11/19 17:25 Dose: 10 mg Documented by: Pantoprazole Sodium (Protonix) 40 mg PO BID [facility] Last Admin: 08/11/19 08:30 Dose: 40 mg Documented by: Pregabalin (Lyrica) 75 mg PO DAILY [facility] Last Admin: 08/11/19 08:30 Dose: 75 mg Documented by: Silver Sulfadiazine (Silvadene Cream) 1 applic TOPICAL HS [facility] Last Admin: 08/10/19 21:23 Dose: 1 applic Documented by: Spironolactone (Aldactone) 25 mg PO DAILY [facility] Last Admin: 08/11/19 08:30 Dose: 25 mg Documented by: Physical examination: VITAL SIGNS: 98.5, 71, 18, 11 9/61, 93% on 2 L GENERAL: Laying in bed, awake EYES: Pupils equal. Conjunctiva normal. HEENT: External appearance of nose and ears normal, oral cavity grossly normal. NECK: Short, thick, JVD unable to assess; masses not palpable. HEART: Distant heart sounds,; edema present, with pendular lower abdomen. LUNGS: Respiratory rate increased, distance breath sounds. ABDOMEN: Soft, large, some evidence of fungal infection in the groin, nontender, liver spleen not palpable, no masses palpable. PSYCH: Alert and oriented x3; mood and affect normal. NEUROLOGICAL: Cranial nerves grossly intact; no facial asymmetry, power and sensation are decreased distally. INVESTIGATIONS, reviewed in the clinical context: Potassium 3.8 bun 67 creatinine 2.21 Admission testing: White count 7.1 hemoglobin 9.4 platelets 247 Potassium 5.8 BUN 77 creatinine 3.39 Creatinine January 2019 was 1.71 Troponin I 0.091 proBNP 3500 EKG tracing personally reviewed by me-atrial flutter fibrillation with rate of of 100 Chest x-ray film personally reviewed by me-cardiomegaly and pulmonary edema 2-D echocardiogram from January 2019-EF 60-65% with wall motion abnormality Assessment: -Acute on chronic congestive heart failure exacerbation from diastolic dysfunction EF 60-65%,, on Lasix 40 mg IV every 8, slow to respond -Persistent atrial fibrillation rate uncontrolled on presentation -Acute renal failure possibly ATN multifactorial, including hypotension, patient also is on Bactrim home. Which has been discontinued. Slow to improve -Chronic kidney disease stage III probably nephrosclerosis -Acute kidney injury from diuresis -Morbid obesity BMI 64.3 -Metabolic alkalosis from volume contraction -COPD -Diabetes mellitus type 2, uncontrolled with hypoglycemia -GERD -Hyperlipidemia -Essential hypertension -Chronic medical debility -Obstructive sleep apnea -Diabetic peripheral neuropathy -Traumatic hematuria from Mccloud catheter, much improved Disposition: ECF Plan: I had put the patient on Bumex drip overnight for 12 hours. Patient made good urine output. This morning nephrology Dr. Gusman decided to continue with the Bumex drip. Other medications to continue. Patient tolerating his diet. Following that less closely.
--- NOTE | 2019-08-11 18:18 | PN ---
PROGRESS NOTE Patient was seen this morning. He was started on Bumex drip yesterday; however, it appeared that patient received a large amount of the drip in a short period of time. Therefore it was discontinued last night. Patient did have good urine output. He had about 4.4 L of urine out. Initially the Lasix was decreased, as patient had developed significant metabolic alkalosis. However, he was complaining of significant pain and swelling in his lower extremities. Therefore patient was started on Bumex drip yesterday. This morning he continues to feel fair. His legs are wrapped. Blood pressure was 120/68, heart rate of 80 per minute. Patient is afebrile. EXAMINATION OF THE HEART: S1 and S2. EXAMINATION OF LUNGS: Bilateral breath sounds are heard. ABDOMEN: Morbidly obese. Examination of lower extremities shows bilateral extremities to be wrapped. Labs show sodium 140, potassium 3.8. CO2 is 44. BUN 67, serum creatinine 2.2. ASSESSMENT: 1. Acute kidney injury, mainly cardiorenal, currently improving with diuresis. 2. Metabolic alkalosis, multifactorial, associated with underlying chronic obstructive pulmonary disease, obstructive sleep apnea, as well as metabolic alkalosis from diuresis. Patient is maintained on Diamox. I will continue the Diamox for now. We do not need to increase the dose, as the CO2 is stable. If it increases, we will need to decrease the dose of the diuretics. I would avoid giving large amounts of Diamox, given his chronic respiratory acidosis. 3. Metabolic alkalosis secondary to diuresis as well as obstructive sleep apnea. 4. Morbid obesity. 5. Hyperkalemia on initial admission associated with acute kidney injury, currently improved. 6. Chronic kidney disease secondary to nephrosclerosis, stage III. Previous creatinine 1.5 to 1.7 mg/dL. 7. Atrial fibrillation with controlled ventricular response. PLAN: Okay to continue Bumex drip at 1 mg/hour. Repeat labs in a.m. Avoid increasing the Diamox significantly. We will likely need to decrease his diuretics if his metabolic alkalosis is worse. MMODL / IJN: [id number] /
[2019-08-11 20:23] LABS: Glucose,Whole Blood 133 mg/dL (75-99)
[2019-08-11] MEDS: ACETAMINOPHEN TAB 500 MG TAB PO PRN (20:28)
[2019-08-11] MEDS: ATORVASTATIN 10 MG TAB PO SCH (20:28)
[2019-08-12] MEDS: MIDODRINE 5 MG TAB PO SCH ×2 (05:32→16:18)
[2019-08-12] MEDS: CEPHALEXIN 250 MG CAP PO SCH ×4 (05:33→22:24)
[2019-08-12] MEDS: BUMETANIDE 10 MG in DEXTROSE 5% IN WATER 60 ML IV SCH ×6 (05:33→21:05)
[2019-08-12 06:30] LABS: Calcium 10.2 mg/dL (8.4-10.2); Magnesium 2.2 mg/dL (1.6-2.3); Potassium 3.3 mmol/L (3.5-5.1)
[2019-08-12 06:31] LABS: Glucose,Whole Blood 125 mg/dL (75-99)
[2019-08-12] MEDS: SYMBICORT 80-4.5 MCG INHALER INHALATION SCH ×2 (09:05→20:34)
[2019-08-12] MEDS: acetaZOLAMIDE 250 MG TAB PO SCH ×2 (09:10→21:03)
[2019-08-12] MEDS: DIGOXIN 125 MCG TAB PO SCH (09:10)
[2019-08-12] MEDS: METOPROLOL TARTRATE 50 MG TAB PO SCH ×2 (09:10→21:03)
[2019-08-12] MEDS: ALLOPURINOL 100 MG TAB PO SCH ×2 (09:10→21:03)
[2019-08-12] MEDS: CHOLECALCIFEROL 1,000 UNIT TAB PO SCH (09:10)
[2019-08-12] MEDS: ASPIRIN 81 MG PO SCH (09:10)
[2019-08-12] MEDS: SPIRONOLACTONE 25 MG TAB PO SCH (09:10)
[2019-08-12] MEDS: PREGABALIN 75 MG CAP PO SCH (09:11)
[2019-08-12] MEDS: METOLAZONE 5 MG TAB PO SCH (09:11)
[2019-08-12] MEDS: PANTOPRAZOLE 40 MG TABLET PO SCH ×2 (09:11→21:04)
[2019-08-12] MEDS: DABIGATRAN 75 MG CAP PO SCH ×2 (09:11→22:24)
[2019-08-12] MEDS: DOCUSATE 100 MG CAP PO SCH ×2 (09:12→21:04)
[2019-08-12] MEDS: POTASSIUM CHLORIDE ER 20 MEQ TAB.ER PO SCH ×3 (09:37→13:51)
--- NOTE | 2019-08-12 10:20 | P.PN ---
Subjective Patient is seen in follow-up for acute kidney injury and chronic kidney disease. Patient has chronic kidney disease stage III with baseline creatinine in the range of 1.5-1.7. Creatinine is 2.34 today. Currently maintained on Bumex drip. Urine output 8 L in the last 24 hours. Bicarb is up to 46. Denies chest pain or shortness of breath. Edema gradually improving. Vital signs are stable. General: The patient appeared well nourished and normally developed. HEENT: Head exam is unremarkable. Neck is without jugular venous distension. LUNGS: Breath sounds decreased. HEART: Rate and Rhythm are regular. First and second heart sounds normal. No murmurs, rubs or gallops. ABDOMEN: Morbidly obese. Nontender. EXTREMITITES: 1+ edema. Chronic changes noted. Objective - Vital Signs Vital signs: Vital Signs Temp 97.6 F 08/12/19 08:00 Pulse 101 H 08/12/19 08:00 Resp 16 08/12/19 08:00 BP 117/58 08/12/19 08:00 Pulse Ox 90 L 08/12/19 08:00 Intake & Output 08/11/19 08/12/19 08/12/19 18:59 06:59 18:59 Intake Total 960 100 419.5 Output Total 3400 4630 450 Balance -2440 -4530 -30.5 Weight 200.8 kg Intake: IV 20 Invasive Line 4 20 Intake, IV Titration 100 39.5 Amount Bumetanide 10 mg In 100 39.5 Dextrose 5% in Water 60 ml @ 1 MG/HR 10 mls/hr IV .Q10H [facility] Rx#:[id number] Oral 960 360 Output: Urine 3400 4630 450 Other: Voiding Method Bedside Commode Bedside Commode Urinal Urinal # Voids 1 1 - Labs CBC & Chem 7: 08/03/19 04:40 08/12/19 05:55 Labs: Abnormal Lab Results - Last 24 Hours (Table) 08/11/19 08/11/19 08/11/19 Range/Units 12:08 16:36 20:22 Potassium (3.5-5.1) mmol/L Chloride (98-107) mmol/L Carbon Dioxide (22-30) mmol/L BUN (9-20) mg/dL Creatinine (0.66-1.25) mg/dL Glucose (74-99) mg/dL POC Glucose (mg/dL) 128 H 139 H 133 H (75-99) mg/dL 08/12/19 08/12/19 Range/Units 05:55 06:24 Potassium 3.3 L (3.5-5.1) mmol/L Chloride 88 L (98-107) mmol/L Carbon Dioxide 46 H* (22-30) mmol/L BUN 60 H (9-20) mg/dL Creatinine 2.34 H (0.66-1.25) mg/dL Glucose 120 H (74-99) mg/dL POC Glucose (mg/dL) 125 H (75-99) mg/dL Assessment and Plan Plan: Assessment: 1. Acute kidney injury secondary to ATN secondary to cardiorenal syndrome. Creatinine 2.34 today. 2. Metabolic alkalosis secondary to chronic respiratory acidosis and volume contraction from diuresis. 3. Chronic kidney disease stage III with baseline creatinine in the range of 1.5-1.7. 4. Acute on chronic diastolic CHF with moderate pulmonary hypertension. 5. Hypokalemia secondary to diuresis. Magnesium normal. 6. Morbid obesity. Plan: Decrease Bumex drip to 0.5 mL per hour. Replace potassium. 60 mg once today. Maintain Diamox. Repeat electrolytes in the morning.
[2019-08-12 11:50] LABS: Glucose,Whole Blood 114 mg/dL (75-99)
--- NOTE | 2019-08-12 12:34 | P.PN ---
Subjective Progress Note Date: 08/12/19 Principal diagnosis: Acute on chronic hypercapnic and hypoxemic respiratory failure secondary to an acute exacerbation of diastolic congestive heart failure. This is a 58-year-old white male patient of Dr. Fry, with past medical history of morbid obesity status post bariatric surgery, diabetes mellitus, hypertension, hyperlipidemia, chronic congestive heart failure, chronic A. fib, former smoker, COPD, obstructive sleep apnea on BiPAP therapy, hypoxemic respiratory failure related to COPD and CHF. Patient presented to the emergency department on 08/02/2019 for evaluation of increasing shortness of breath, confusion, and patient was seeing things that were not there, seeing waves in the carpet, seeing people that were not there. In addition his vision was blurred, he thought he may have been related to low oxygen level, he does not have a pulse ox but he felt that his oxygen level was probably low especially with any exertion. He states he has been compliant with his medications, he is on maintenance dose Lasix at home, he is on oral anticoagulation for history of A. fib. He denied any fever or chills, he did notice some increasing shakes in his legs and body, but denied any chest pain. Patient lives by himself, but he states his diet is probably not very compliant with low-sodium. No fever or chills, he normally wears 4 L of oxygen at home, patient is not familiar with his BiPAP settings, but he states his been using it consistently. Chest x-ray was taken in the emergency department, showing some mild atelectasis at the right lung base, and mild pulmonary congestion slightly increased from prior exam. Blood gas was taken in the emergency department showing acute on chronic hypercapnic respiratory failure. White count was normal, sodium was 136, potassium is 5.8, chloride was 90, CO2 was 39, BNP was elevated at 3500, troponin was 0.091, 0.103, 0.101. Drug screen was done showing benzodiazepines, urinalysis was unremarkable. Patient was then placed on BiPAP with pressures of 12 and 6, and FiO2 45%, became more arousable, he was started on Lasix drip, brain CT was negative. At time of my evaluation patient is awake and alert, he is on 2 L of oxygen, off the BiPAP support, breathing easier, continues on Lasix drip at 10 mg per hour The patient is seen today 08/19/2019 in follow-up on the selective care unit. He is currently sitting up in a chair at the bedside. Awake and alert oriented 3. He is maintaining good O2 saturations in the upper 90s on 4 L/m per nasal cannula. He is alternating with BiPAP. He is afebrile. Hemodynamically stable. Blood glucose 135. He is continued on Diamox, bronchodilators, Symbicort, Keflex. He is continued on IV diuretics 40 mg every 8 hours. Anticoagulated with Pradaxa. The patient is seen today 08/10/2019 in follow-up on the selective care unit. He is currently sitting up in chair at the bedside. Awake and alert and oriented 3. No further episodes of altered mental status or obtundation. He is maintaining good O2 saturation in low 90s on 2 L/m per nasal cannula. Sodium 139. Chloride 91. Bicarb 44. Creatinine 2.41. He remains on Lasix 40 mg IV every 12 hours. The patient is seen today 08/11/2018 in follow-up on the selective care unit. He is currently resting comfortably in bed. Awake and alert oriented 3. No worsening shortness of breath, cough or congestion. Maintaining good O2 saturations in the 90s on 2 L/m per nasal cannula. He is afebrile. Hemodynamically stable. Sodium 140. Potassium 3.8. Bicarb 44. Creatinine 2.21. Glucose 128. Continued on DuoNeb inhalations, Symbicort, diuretics. The patient is seen today 08/12/2019 in follow-up on the selective care unit. He is currently sitting up in a chair at the bedside. Awake and alert in no acute distress. Denies any worsening shortness of breath, cough or congestion. He is maintaining O2 saturations in the low 90s on 2 L/m per nasal cannula. He's been afebrile. Sodium 140. Potassium 3.3. Bicarb 46. Creatinine 2.36. He remains on a Bumex drip. Remains in a negative balance. Weight continues to decrease. Edema decreasing. Objective - Vital Signs Vital signs: Vital Signs Temp 97.6 F 08/12/19 08:00 Pulse 101 H 08/12/19 08:00 Resp 16 08/12/19 08:00 BP 117/58 08/12/19 08:00 Pulse Ox 90 L 08/12/19 08:00 Intake & Output 08/11/19 08/12/19 08/12/19 18:59 06:59 18:59 Intake Total 960 100 419.5 Output Total 3400 4630 450 Balance -2440 -4530 -30.5 Weight 200.8 kg Intake: IV 20 Invasive Line 4 20 Intake, IV Titration 100 39.5 Amount Bumetanide 10 mg In 100 39.5 Dextrose 5% in Water 60 ml @ 1 MG/HR 10 mls/hr IV .Q10H [facility] Rx#:[id number] Oral 960 360 Output: Urine 3400 4630 450 Other: Voiding Method Bedside Commode Bedside Commode Urinal Urinal # Voids 1 1 - Exam GENERAL EXAM: Alert, 58-year-old morbidly obese white male currently on 2 L of oxygen, comfortable in no apparent distress. HEAD: Normocephalic/atraumatic. EYES: Normal reaction of pupils, equal size. Conjunctiva pink, sclera white. NOSE: Clear with pink turbinates. THROAT: No erythema or exudates. NECK: No masses, no JVD, no thyroid enlargement, no adenopathy. CHEST: No chest wall deformity. Symmetrical expansion. LUNGS: Equal air entry with faint crackles in posterior bases. CVS: Regular rate and rhythm, normal S1 and S2, no gallops, no murmurs, no rubs ABDOMEN: Soft, nontender. No hepatosplenomegaly, normal bowel sounds, no guarding or rigidity. Abdomen is obese, with some abdominal wall edema, and some slight erythema, but no weeping EXTREMITIES: No clubbing, 2-3+ edema, no cyanosis, 2+ pulses and upper and lower extremities. MUSCULOSKELETAL: Muscle strength and tone normal. SPINE: No scoliosis or deformity SKIN: No rashes CENTRAL NERVOUS SYSTEM: No focal deficits, tone is normal in all 4 extremities. PSYCHIATRIC: Alert and oriented -3. Appropriate affect. Intact judgment and insight. - Labs CBC & Chem 7: 08/03/19 04:40 08/12/19 05:55 Labs: Abnormal Lab Results - Last 24 Hours (Table) 08/11/19 08/11/19 08/11/19 Range/Units 12:08 16:36 20:22 Potassium (3.5-5.1) mmol/L Chloride (98-107) mmol/L Carbon Dioxide (22-30) mmol/L BUN (9-20) mg/dL Creatinine (0.66-1.25) mg/dL Glucose (74-99) mg/dL POC Glucose (mg/dL) 128 H 139 H 133 H (75-99) mg/dL 08/12/19 08/12/19 08/12/19 Range/Units 05:55 06:24 11:49 Potassium 3.3 L (3.5-5.1) mmol/L Chloride 88 L (98-107) mmol/L Carbon Dioxide 46 H* (22-30) mmol/L BUN 60 H (9-20) mg/dL Creatinine 2.34 H (0.66-1.25) mg/dL Glucose 120 H (74-99) mg/dL POC Glucose (mg/dL) 125 H 114 H (75-99) mg/dL Assessment and Plan Assessment: Assessment: #1. Acute on chronic hypercapnic and hypoxemic respiratory failure related to acute exacerbation of chronic congestive heart failure with preserved EF #2. COPD, on home oxygen, baseline FEV1 is unknown #3. Acute on chronic renal failure. Creatinine improving currently 2.34. #4. Positive troponins, could be related to hypoxemia and CHF, patient denied any chest pain, EKG showed A. fib with a rate of 109, without acute ischemic changes #5. Chronic A. fib on Pradaxa #6. Morbid obesity status post bariatric surgery, BMI 58.4 kg/m #7. Diabetes mellitus type 2 with neuropathy #8. Obstructive sleep apnea on home BiPAP #9. Hypertension #10. Hyperlipidemia #11. Former smoker #12. Previous MRSA infection Plan: The patient was seen and evaluated by Dr. Gr. He is currently stable from the pulmonary standpoint. He remains on a Bumex drip per nephrology. Continues in negative balance. Continues to lose weight. Edema improving. We will continue to follow and make further recommendations based on his clinical status. I, the cosigning physician, performed a history & physical examination of the patient. Lungs sounds with faint crackles in the posterior bases Maintaining good O2 saturations in the 90s on 2 L/m alternating with BiPAP. I discussed the assessment and plan of care with my nurse practitioner, Erika Howell. I attest to the above note as dictated by her.
[2019-08-12] MEDS: SILVER sulfADIAZINE Cream 400 GM 1 APPLIC APPLIC TOPICAL SCH (16:17)
[2019-08-12] MEDS: IPRATROPIUM-ALBUTEROL 3 ML NEB INHALATION PRN (16:21)
[2019-08-12 16:25] LABS: Glucose,Whole Blood 149 mg/dL (75-99)
--- NOTE | 2019-08-12 17:14 | P.PN ---
Subjective Progress Note Date: 08/12/19 Principal diagnosis: Acute on chronic hypercapnic and hypoxemic respiratory failure Mr. Alfredo is a 58-year-old male with a past medical history of morbid obesity status post pediatric surgery, diverticulitis mellitus, hypertension, hyper lipidemia, congestive heart failure, chronic atrial fibrillation, obstructive sleep apnea on BiPAP, hypoxemic respiratory failure admitted for increasing shortness of breath and confusion. Patient is being treated for acute diastolic congestive heart failure exacerbation. On 08/12/2090 - patient is lying in bed appears to be no acute distress. He states his difficulty in breathing is still the same. He also complains of itching of his abdominal wall folds. Patient has been started on Bumex drip yesterday, his urine output has increased tremendously. His trip has been decreased to 0.5 mL/hr this morning. On review of systems Constitutional-no fevers chills or rigors. Respiratory-Difficulty in breathing at baseline. No cough Cardiovascular-no chest pain or palpitations GI- no abdominal pain nausea vomiting or diarrhea - no dysuria or hematuria Active Medications Acetaminophen (Tylenol Tab) 1,000 mg PO Q6HR PRN PRN Reason: Fever and/ or Pain Last Admin: 08/11/19 20:28 Dose: 1,000 mg Documented by: Acetazolamide (Diamox) 250 mg PO BID [facility] Last Admin: 08/12/19 09:10 Dose: 250 mg Documented by: Albuterol/Ipratropium (Duoneb 0.5 Mg-3 Mg/3 Ml Soln) 3 ml INHALATION RT-QID PRN PRN Reason: Shortness Of Breath Or Wheezing Last Admin: 08/12/19 16:21 Dose: 3 ml Documented by: Allopurinol (Zyloprim) 100 mg PO BID [facility] Last Admin: 08/12/19 09:10 Dose: 100 mg Documented by: Aspirin (Aspirin) 81 mg PO DAILY [facility] Last Admin: 08/12/19 09:10 Dose: 81 mg Documented by: Atorvastatin Calcium (Lipitor) 10 mg PO HS [facility] Last Admin: 08/11/19 20:28 Dose: 10 mg Documented by: Budesonide/Formoterol Fumarate (Symbicort 80-4.5 Mcg Inhaler) 2 puff INHALATION RT-BID [facility] Last Admin: 08/12/19 09:05 Dose: 2 puff Documented by: Cephalexin (Keflex) 250 mg PO Q6HR [facility] Last Admin: 08/12/19 16:18 Dose: 250 mg Documented by: Cholecalciferol (Vitamin D3 (25 Mcg = 1000 Iu)) 2,000 unit PO DAILY [facility] Last Admin: 08/12/19 09:10 Dose: 2,000 unit Documented by: Dabigatran (Pradaxa) 75 mg PO BID [facility] Last Admin: 08/12/19 09:11 Dose: 75 mg Documented by: Digoxin (Lanoxin) 125 mcg PO DAILY [facility] Last Admin: 08/12/19 09:10 Dose: 125 mcg Documented by: Docusate Sodium (Colace) 100 mg PO BID [facility] Last Admin: 08/12/19 09:12 Dose: Not Given Documented by: Bumetanide 10 mg/ Dextrose/ (Water) 100 mls @ 5 mls/hr IV .Q20H [facility] Last Admin: 08/12/19 09:31 Dose: 0.5 mg/hr, 5 mls/hr Documented by: Lactic Acid (Lac-Hydrin 12%) 1 applic TOPICAL BID PRN PRN Reason: Dry Skin Last Admin: 08/04/19 10:11 Dose: 1 applic Documented by: Metolazone (Zaroxolyn) 5 mg PO DAILY [facility] Last Admin: 08/12/19 09:11 Dose: 5 mg Documented by: Metoprolol Tartrate (Lopressor) 100 mg PO BID [facility] Last Admin: 08/12/19 09:10 Dose: 100 mg Documented by: Miconazole Nitrate (Monistat-Derm) 1 applic TOPICAL DAILY PRN PRN Reason: YEAST INFECTION Last Admin: 08/11/19 08:32 Dose: 1 applic Documented by: Midodrine (Proamatine) 10 mg PO AC-BID [facility] Last Admin: 08/12/19 16:18 Dose: 10 mg Documented by: Pantoprazole Sodium (Protonix) 40 mg PO BID [facility] Last Admin: 08/12/19 09:11 Dose: 40 mg Documented by: Pregabalin (Lyrica) 75 mg PO DAILY [facility] Last Admin: 08/12/19 09:11 Dose: 75 mg Documented by: Silver Sulfadiazine (Silvadene Cream) 1 applic TOPICAL HS [facility] Last Admin: 08/12/19 16:17 Dose: 1 applic Documented by: Spironolactone (Aldactone) 25 mg PO DAILY [facility] Last Admin: 08/12/19 09:10 Dose: 25 mg Documented by: Objective - Vital Signs Vital signs: Vital Signs Temp 97.6 F 08/12/19 15:32 Pulse 76 08/12/19 16:37 Resp 16 08/12/19 15:36 BP 113/68 08/12/19 15:32 Pulse Ox 93 L 08/12/19 16:22 Intake & Output 08/11/19 08/12/19 08/12/19 18:59 06:59 18:59 Intake Total 960 100 719.5 Output Total 3400 4630 1050 Balance -2440 -4530 -330.5 Weight 200.8 kg Intake: IV 60 Invasive Line 4 60 Intake, IV Titration 100 39.5 Amount Bumetanide 10 mg In 100 39.5 Dextrose 5% in Water 60 ml @ 1 MG/HR 10 mls/hr IV .Q10H [facility] Rx#:[id number] Oral 960 620 Output: Urine 3400 4630 1050 Other: Voiding Method Bedside Commode Bedside Commode Bedside Commode Urinal Urinal Urinal # Voids 1 1 - Exam GENERAL: Lying in bed, awake EYES: Pupils equal. Conjunctiva normal. HEENT: External appearance of nose and ears normal, oral cavity grossly normal. NECK: Short, thick, JVD unable to assess; masses not palpable. HEART: Distant heart sounds,; edema present, with pendular lower abdomen. LUNGS: Respiratory rate increased, distance breath sounds. ABDOMEN: Soft, large, some evidence of fungal infection in the groin, nontender, liver spleen not palpable, no masses palpable. Penis embedded in his abdominal folds. Scrotal edema positive. PSYCH: Alert and oriented x3; mood and affect normal. NEUROLOGICAL: Cranial nerves grossly intact; no facial asymmetry, power and sensation are decreased distally. - Labs CBC & Chem 7: 08/03/19 04:40 08/12/19 05:55 Labs: Abnormal Lab Results - Last 24 Hours (Table) 08/11/19 08/12/19 08/12/19 Range/Units 20:22 05:55 06:24 Potassium 3.3 L (3.5-5.1) mmol/L Chloride 88 L (98-107) mmol/L Carbon Dioxide 46 H* (22-30) mmol/L BUN 60 H (9-20) mg/dL Creatinine 2.34 H (0.66-1.25) mg/dL Glucose 120 H (74-99) mg/dL POC Glucose (mg/dL) 133 H 125 H (75-99) mg/dL 08/12/19 08/12/19 Range/Units 11:49 16:24 Potassium (3.5-5.1) mmol/L Chloride (98-107) mmol/L Carbon Dioxide (22-30) mmol/L BUN (9-20) mg/dL Creatinine (0.66-1.25) mg/dL Glucose (74-99) mg/dL POC Glucose (mg/dL) 114 H 149 H (75-99) mg/dL Assessment and Plan Assessment: Assessment: -Acute on chronic congestive heart failure exacerbation from diastolic dysfunction EF 60-65%,, on Lasix 40 mg IV every 8, slow to respond -Persistent atrial fibrillation rate uncontrolled on presentation -Acute renal failure possibly ATN multifactorial, including hypotension, patient also is on Bactrim home - creatinine trending down slowly -Chronic kidney disease stage III probably nephrosclerosis -Morbid obesity BMI 64.3 -Contraction alkalosis -COPD -Diabetes mellitus type 2, uncontrolled with hypoglycemia -GERD -Hyperlipidemia -Essential hypertension -Chronic medical debility -Obstructive sleep apnea -Diabetic peripheral neuropathy -Traumatic hematuria from Mccloud catheter, much improved PLAN: Patient's urinary output increased the Bumex drip. Nephrology on board following the patient. Continue with the current medication regimen. Overall prognosis is guarded. Further recommendations depending on the progress of the patient.
[2019-08-12] MEDS: ACETAMINOPHEN TAB 500 MG TAB PO PRN (18:37)
[2019-08-12 20:29] LABS: Glucose,Whole Blood 184 mg/dL (75-99)
[2019-08-12] MEDS: ATORVASTATIN 10 MG TAB PO SCH (21:03)
[2019-08-13] MEDS: ACETAMINOPHEN TAB 500 MG TAB PO PRN (05:24)
[2019-08-13] MEDS: CEPHALEXIN 250 MG CAP PO SCH ×3 (05:27→15:52)
[2019-08-13 07:00] LABS: Calcium 9.9 mg/dL (8.4-10.2); Potassium 3.4 mmol/L (3.5-5.1)
[2019-08-13 07:09] LABS: Glucose,Whole Blood 126 mg/dL (75-99)
[2019-08-13] MEDS: IPRATROPIUM-ALBUTEROL 3 ML NEB INHALATION PRN ×2 (07:15→20:36)
[2019-08-13] MEDS: SYMBICORT 80-4.5 MCG INHALER INHALATION SCH ×2 (07:15→20:36)
[2019-08-13] MEDS: METOPROLOL TARTRATE 50 MG TAB PO SCH ×2 (10:10→21:45)
[2019-08-13] MEDS: CHOLECALCIFEROL 1,000 UNIT TAB PO SCH (10:11)
[2019-08-13] MEDS: DOCUSATE 100 MG CAP PO SCH ×2 (10:11→21:45)
[2019-08-13] MEDS: ALLOPURINOL 100 MG TAB PO SCH ×2 (10:11→21:46)
[2019-08-13] MEDS: ASPIRIN 81 MG PO SCH (10:11)
[2019-08-13] MEDS: MIDODRINE 5 MG TAB PO SCH ×2 (10:11→15:52)
[2019-08-13] MEDS: SPIRONOLACTONE 25 MG TAB PO SCH (10:11)
[2019-08-13] MEDS: DIGOXIN 125 MCG TAB PO SCH (10:11)
[2019-08-13] MEDS: PANTOPRAZOLE 40 MG TABLET PO SCH ×2 (10:11→21:46)
[2019-08-13] MEDS: DABIGATRAN 75 MG CAP PO SCH ×2 (10:12→21:46)
[2019-08-13] MEDS: POTASSIUM CHLORIDE ER 20 MEQ TAB.ER PO SCH ×2 (10:12→10:58)
[2019-08-13] MEDS: PREGABALIN 75 MG CAP PO SCH (10:12)
--- NOTE | 2019-08-13 10:42 | P.PN ---
Subjective Patient is seen in follow-up for acute kidney injury and chronic kidney disease. Patient has chronic kidney disease stage III with baseline creatinine in the range of 1.5-1.7. Renal function is stable. Creatinine 2.39 today. Currently maintained on Bumex drip at 0.5 mg per hour. Urine output over 5 L in the last 24 hours. Bicarb is up to 48. Denies chest pain or shortness of breath. Edema gradually improving. Weight is trending down. Vital signs are stable. General: The patient appeared well nourished and normally developed. HEENT: Head exam is unremarkable. Neck is without jugular venous distension. LUNGS: Breath sounds decreased. HEART: Rate and Rhythm are regular. First and second heart sounds normal. No murmurs, rubs or gallops. ABDOMEN: Morbidly obese. Nontender. EXTREMITITES: 1+ edema. Chronic changes noted. Objective - Vital Signs Vital signs: Vital Signs Temp 98.9 F 08/13/19 04:00 Pulse 66 08/13/19 07:27 Resp 18 08/13/19 04:00 BP 139/64 08/13/19 04:00 Pulse Ox 94 L 08/13/19 07:15 Intake & Output 08/12/19 08/13/19 08/13/19 18:59 06:59 18:59 Intake Total 1199.5 457.833 480 Output Total 2024 3550 600 Balance -825.5 -3092.167 -120 Weight 196 kg Intake: IV 60 Invasive Line 4 60 Intake, IV Titration 39.5 57.833 Amount Bumetanide 10 mg In 57.833 Dextrose 5% in Water 60 ml @ 0.5 MG/HR 5 mls/hr IV .Q20H [facility] Rx#: [id number] Bumetanide 10 mg In 39.5 Dextrose 5% in Water 60 ml @ 1 MG/HR 10 mls/hr IV .Q10H [facility] Rx#:[id number] Oral 1100 400 480 Output: Urine 2024 3550 600 Other: Voiding Method Bedside Commode Urinal Urinal # Voids 1 1 - Labs CBC & Chem 7: 08/03/19 04:40 08/13/19 05:57 Labs: Abnormal Lab Results - Last 24 Hours (Table) 08/12/19 08/12/19 08/12/19 Range/Units 11:49 16:24 20:28 Potassium (3.5-5.1) mmol/L Chloride (98-107) mmol/L Carbon Dioxide (22-30) mmol/L BUN (9-20) mg/dL Creatinine (0.66-1.25) mg/dL Glucose (74-99) mg/dL POC Glucose (mg/dL) 114 H 149 H 184 H (75-99) mg/dL 08/13/19 08/13/19 Range/Units 05:57 07:01 Potassium 3.4 L (3.5-5.1) mmol/L Chloride 87 L (98-107) mmol/L Carbon Dioxide 48 H* (22-30) mmol/L BUN 59 H (9-20) mg/dL Creatinine 2.39 H (0.66-1.25) mg/dL Glucose 117 H (74-99) mg/dL POC Glucose (mg/dL) 126 H (75-99) mg/dL Assessment and Plan Plan: Assessment: 1. Acute kidney injury secondary to ATN secondary to cardiorenal syndrome. Renal function stable. Creatinine 2.39 today. 2. Metabolic alkalosis secondary to chronic respiratory acidosis and volume contraction from diuresis. 3. Chronic kidney disease stage III with baseline creatinine in the range of 1.5-1.7. 4. Acute on chronic diastolic CHF with moderate pulmonary hypertension. 5. Hypokalemia secondary to diuresis. Magnesium normal. 6. Morbid obesity. Plan: Discontinue Bumex drip. Start IV Bumex 2 mg twice daily. Replace potassium. 80 mg once today. Change Diamox to IV. Repeat electrolytes in the morning. Monitor bicarb.
[2019-08-13] MEDS: SILVER sulfADIAZINE Cream 400 GM 1 APPLIC APPLIC TOPICAL SCH (10:50)
[2019-08-13] MEDS: BUMETANIDE 0.25 MG/ML 4 ML VIAL IVP SCH ×2 (10:51→21:46)
[2019-08-13] MEDS: METOLAZONE 5 MG TAB PO SCH (10:58)
[2019-08-13] MEDS: acetaZOLAMIDE 250 MG TAB PO SCH (11:05)
[2019-08-13] MEDS ORDERED: LACTULOSE 20 GM/30 ML CUP PO PRN (11:24)
[2019-08-13 11:46] LABS: Glucose,Whole Blood 136 mg/dL (75-99)
--- NOTE | 2019-08-13 12:04 | PN ---
PROGRESS NOTE This is a 58-year-old gentleman with a history of acute on chronic hypercapnic and hypoxemic respiratory failure secondary to chronic congestive heart failure. He has diastolic heart failure with a preserved ejection fraction. Initially, the patient was getting higher than required concentrations of oxygen and was becoming more and more hypercapnic and acidotic with lethargy and somnolence. Currently, we have corrected that situation. The nurses know that his saturations are perfectly okay between 85 and 90%. He does use BiPAP at nighttime. During the daytime he is on supplemental oxygen just enough to maintain saturations in that range. He is doing much better. He was placed on a Bumex drip by one of the nephrologists. His I's and O's have been very negative. From the pulmonary standpoint, he feels much improved. His breathing is much improved. He does have a history of COPD. He also suffers from acute on chronic renal failure, chronic atrial fibrillation, morbid obesity, diabetes mellitus, sleep apnea syndrome, hypertension, hyperlipidemia, and prior MRSA infection. PHYSICAL EXAMINATION: Current vital signs are reviewed. Temperature is 98.9, heart rate 66, respiratory rate 17, blood pressure 139/64, mean 89 and 2 L saturation is 92%. Appears in no acute distress. HEENT examination is grossly unremarkable. Nasal O2 noted. NECK: Supple. Full range of motion. No adenopathy or thyromegaly. Neck veins are flat. CARDIOVASCULAR examination reveals regular rhythm rate. S1, S2 normal. There is no murmur. Heart rate about 66 beats per minute. LUNGS: Reveal mostly clear breath sounds. A few scattered rhonchi. No wheezes or crackles. ABDOMEN: Obese. Bowel sounds are heard. EXTREMITIES are intact. There is 2 to 3+ edema. This is improved. There is no cyanosis or clubbing. SKIN: Without rash. NEUROLOGIC examination is brief but nonfocal. LABS: Reviewed. Sodium 141, potassium 3.4, chloride 87, CO2 of 48, anion gap 6. BUN and creatinine were 59 and 2.39. Magnesium and calcium are normal. No recent x-ray to review. Microbiology is negative or pending. Bumex drip has been D/C'd in favor of Bumex 2 mg IV push twice a day. Other medications are reviewed and are appropriate. ASSESSMENT: 1. Acute on chronic hypercapnic and hypoxemic respiratory failure, secondary to acute exacerbation of chronic congestive heart failure with preserved ejection fraction. This was exacerbated by higher than acceptable concentrations of oxygen administration. 2. Chronic obstructive pulmonary disease, currently on home oxygen therapy. 3. Acute on chronic renal failure. 4. Elevated troponin levels, which may relate to heart failure or hypoxemia or atrial fibrillation. 5. Chronic atrial fibrillation. 6. Morbid obesity status post bariatric surgery. 7. Type 2 diabetes mellitus with diabetic neuropathy. 8. Sleep apnea syndrome, maintained on home BiPAP. 9. Benign essential hypertension. 10.Hyperlipidemia. 11.History of previous tobacco use. 12.Previous MRSA infection. PLAN: The Bumex drip has been discontinued. He is currently on Bumex 2 mg IV push q.12 hours. Other medications are appropriate. We will continue to follow. Overall, situation is improved. His I's and O's over the last couple days include -528 on August 09, -440 on August 10, -3730 on August 11, minus nearly 7 L on August 12, minus nearly 4 L on August 13. We will continue to follow. No additional recommendations are made. Microbiology is pending or negative. Labs are reviewed. MMODL / IJN: [id number] /
--- NOTE | 2019-08-13 16:04 | P.PN ---
Subjective Progress Note Date: 08/13/19 Principal diagnosis: Acute on chronic hypercapnic and hypoxemic respiratory failure Acute on chronic diastolic congestive heart failure Mr. Alfredo is a 58-year-old male with a past medical history of morbid obesity status post pediatric surgery, diverticulitis mellitus, hypertension, hyper lipidemia, congestive heart failure, chronic atrial fibrillation, obstructive sleep apnea on BiPAP, hypoxemic respiratory failure admitted for increasing shortness of breath and confusion. Patient is being treated for acute diastolic congestive heart failure exacerbation. On 08/13/2019- as per the nursing report patient has been having a lot of urinary output. He lost about 12 pounds in the past 3 days. Overall patient is doing much better. Patient mentions that his breathing has improved. But he still complains of itching sensation in his abdominal folds. Patient's lower extremities have been wrapped in Kerlix to help with the lower extremity swelling. In the morning the nurse noticed that his toes have been dusky and little cold, but he had good dorsalis pedis pulses. After the Kerlix has been loosened, the color improved and they're warm to touch now. Patient has been discontinued off his bumex drip this morning. Active Medications Acetaminophen (Tylenol Tab) 1,000 mg PO Q6HR PRN PRN Reason: Fever and/ or Pain Last Admin: 08/13/19 05:24 Dose: 1,000 mg Documented by: Acetazolamide Sodium (Diamox) 250 mg IV Q12HR [facility] Last Admin: 08/13/19 10:51 Dose: 250 mg Documented by: Albuterol/Ipratropium (Duoneb 0.5 Mg-3 Mg/3 Ml Soln) 3 ml INHALATION RT-QID PRN PRN Reason: Shortness Of Breath Or Wheezing Last Admin: 08/13/19 07:15 Dose: 3 ml Documented by: Allopurinol (Zyloprim) 100 mg PO BID [facility] Last Admin: 08/13/19 10:11 Dose: 100 mg Documented by: Aspirin (Aspirin) 81 mg PO DAILY [facility] Last Admin: 08/13/19 10:11 Dose: 81 mg Documented by: Atorvastatin Calcium (Lipitor) 10 mg PO HS [facility] Last Admin: 08/12/19 21:03 Dose: 10 mg Documented by: Budesonide/Formoterol Fumarate (Symbicort 80-4.5 Mcg Inhaler) 2 puff INHALATION RT-BID [facility] Last Admin: 08/13/19 07:15 Dose: 2 puff Documented by: Bumetanide (Bumex) 2 mg IVP BID [facility] Last Admin: 08/13/19 10:51 Dose: 2 mg Documented by: Cephalexin (Keflex) 250 mg PO Q6HR [facility] Last Admin: 08/13/19 15:52 Dose: 250 mg Documented by: Cholecalciferol (Vitamin D3 (25 Mcg = 1000 Iu)) 2,000 unit PO DAILY [facility] Last Admin: 08/13/19 10:11 Dose: 2,000 unit Documented by: Dabigatran (Pradaxa) 75 mg PO BID [facility] Last Admin: 08/13/19 10:12 Dose: 75 mg Documented by: Digoxin (Lanoxin) 125 mcg PO DAILY [facility] Last Admin: 08/13/19 10:11 Dose: 125 mcg Documented by: Docusate Sodium (Colace) 100 mg PO BID [facility] Last Admin: 08/13/19 10:11 Dose: 100 mg Documented by: Lactic Acid (Lac-Hydrin 12%) 1 applic TOPICAL BID PRN PRN Reason: Dry Skin Last Admin: 08/04/19 10:11 Dose: 1 applic Documented by: Lactulose (Cephulac) 10 gm PO TID PRN PRN Reason: Constipation Stop: 08/18/19 11:25 Metolazone (Zaroxolyn) 5 mg PO DAILY [facility] Last Admin: 08/13/19 10:58 Dose: 5 mg Documented by: Metoprolol Tartrate (Lopressor) 100 mg PO BID [facility] Last Admin: 08/13/19 10:10 Dose: 100 mg Documented by: Miconazole Nitrate (Monistat-Derm) 1 applic TOPICAL DAILY PRN PRN Reason: YEAST INFECTION Last Admin: 08/11/19 08:32 Dose: 1 applic Documented by: Midodrine (Proamatine) 10 mg PO AC-BID [facility] Last Admin: 08/13/19 15:52 Dose: 10 mg Documented by: Pantoprazole Sodium (Protonix) 40 mg PO BID [facility] Last Admin: 08/13/19 10:11 Dose: 40 mg Documented by: Pregabalin (Lyrica) 75 mg PO DAILY [facility] Last Admin: 08/13/19 10:12 Dose: 75 mg Documented by: Silver Sulfadiazine (Silvadene Cream) 1 applic TOPICAL HS [facility] Last Admin: 08/13/19 10:50 Dose: 1 applic Documented by: Spironolactone (Aldactone) 25 mg PO DAILY [facility] Last Admin: 08/13/19 10:11 Dose: 25 mg Documented by: Objective - Vital Signs Vital signs: Vital Signs Temp 98.3 F 08/13/19 08:00 Pulse 60 08/13/19 15:31 Resp 16 08/13/19 15:31 BP 120/68 08/13/19 08:00 Pulse Ox 90 L 08/13/19 08:00 Intake & Output 08/12/19 08/13/19 08/13/19 18:59 06:59 18:59 Intake Total 1199.5 457.833 750 Output Total 2024 3549 1050 Balance -825.5 -3092.167 -300 Weight 196 kg Intake: IV 60 30 Invasive Line 4 60 30 Intake, IV Titration 39.5 57.833 Amount Bumetanide 10 mg In 57.833 Dextrose 5% in Water 60 ml @ 0.5 MG/HR 5 mls/hr IV .Q20H [facility] Rx#: [id number] Bumetanide 10 mg In 39.5 Dextrose 5% in Water 60 ml @ 1 MG/HR 10 mls/hr IV .Q10H [facility] Rx#:[id number] Oral 1100 400 720 Output: Urine 2024 3549 1050 Other: Voiding Method Bedside Commode Urinal Urinal Urinal # Voids 1 1 1 - Exam GENERAL: Lying in bed, awake EYES: Pupils equal. Conjunctiva normal. HEENT: External appearance of nose and ears normal, oral cavity grossly normal. NECK: Short, thick, JVD unable to assess; masses not palpable. HEART: Distant heart sounds,; edema present, with pendular lower abdomen. LUNGS: Respiratory rate increased, distance breath sounds. ABDOMEN: Soft, large, some evidence of fungal infection in the groin, nontender. Penis embedded in his abdominal folds. Scrotal edema positive. PSYCH: Alert and oriented x3; mood and affect normal. NEUROLOGICAL: Cranial nerves grossly intact; no facial asymmetry - Labs CBC & Chem 7: 08/03/19 04:40 08/13/19 05:57 Labs: Abnormal Lab Results - Last 24 Hours (Table) 08/12/19 08/12/19 08/13/19 Range/Units 16:24 20:28 05:57 Potassium 3.4 L (3.5-5.1) mmol/L Chloride 87 L (98-107) mmol/L Carbon Dioxide 48 H* (22-30) mmol/L BUN 59 H (9-20) mg/dL Creatinine 2.39 H (0.66-1.25) mg/dL Glucose 117 H (74-99) mg/dL POC Glucose (mg/dL) 149 H 184 H (75-99) mg/dL 08/13/19 08/13/19 Range/Units 07:01 11:44 Potassium (3.5-5.1) mmol/L Chloride (98-107) mmol/L Carbon Dioxide (22-30) mmol/L BUN (9-20) mg/dL Creatinine (0.66-1.25) mg/dL Glucose (74-99) mg/dL POC Glucose (mg/dL) 126 H 136 H (75-99) mg/dL Assessment and Plan Assessment: Assessment: -Acute on chronic congestive heart failure exacerbation from diastolic dysfunction EF 60-65%, -Persistent atrial fibrillation - rate controlled now -Acute renal failure possibly ATN multifactorial, including hypotension, patient also is on Bactrim home - creatinine trending down slowly -Chronic kidney disease stage III probably nephrosclerosis -Morbid obesity BMI 57 -Contraction alkalosis -COPD -Diabetes mellitus type 2, uncontrolled -GERD -Hyperlipidemia -Essential hypertension -Chronic medical debility -Obstructive sleep apnea -Diabetic peripheral neuropathy -Traumatic hematuria from Mccloud catheter, much improved PLAN: Patient has lost around 56 pounds since admission, she shows much improvement in his lower extremity swelling and his breathing is improved. His Bumex drip has been discontinued. He has been started on IV Diamox. Continue with the current medication regimen. Overall prognosis is guarded. Further recommendations depending on the progress of the patient.
[2019-08-13 16:56] LABS: Glucose,Whole Blood 134 mg/dL (75-99)
[2019-08-13 20:33] LABS: Glucose,Whole Blood 206 mg/dL (75-99)
[2019-08-13] MEDS: ATORVASTATIN 10 MG TAB PO SCH (21:46)
[2019-08-14] MEDS: CEPHALEXIN 250 MG CAP PO SCH ×5 (01:04→23:03)
[2019-08-14] MEDS: MIDODRINE 5 MG TAB PO SCH ×2 (06:00→17:04)
[2019-08-14] MEDS: ACETAMINOPHEN TAB 500 MG TAB PO PRN ×2 (06:03→23:03)
[2019-08-14 06:58] LABS: Calcium 10.4 mg/dL (8.4-10.2); Potassium 3.8 mmol/L (3.5-5.1)
[2019-08-14 07:00] LABS: Anisocytosis Slight; HCT 33.9 % (39.0-53.0); Hypochromasia Marked; MCH 25.8 pg (25.0-35.0); MCHC 29.4 g/dL (31.0-37.0); MCV 87.9 fL (80.0-100.0); Mean Platelet Volume 6.5; Platelet Count 293 k/uL (150-450); Poikilocytosis Slight; RBC 3.85 m/uL (4.30-5.90); RDW 16.5 % (11.5-15.5); WBC 5.8 k/uL (3.8-10.6)
[2019-08-14] MEDS: SYMBICORT 80-4.5 MCG INHALER INHALATION SCH ×2 (07:49→18:53)
[2019-08-14 08:00] LABS: Eosinophils # (M) 0.17 k/uL (0-0.7); Lymphocytes # (M) 1.04 k/uL (1.0-4.8); Monocytes # (M) 0.41 k/uL (0-1.0); Neutrophils % (M) 72 %; Nucleated Red Blood Cells 0 /100 WBC (0-0); Total Cells Counted 100
[2019-08-14] MEDS: SPIRONOLACTONE 25 MG TAB PO SCH (09:00)
[2019-08-14] MEDS: BUMETANIDE 0.25 MG/ML 4 ML VIAL IVP SCH ×2 (09:00→20:52)
[2019-08-14] MEDS: METOLAZONE 5 MG TAB PO SCH (09:00)
[2019-08-14] MEDS: DABIGATRAN 75 MG CAP PO SCH ×2 (09:00→20:52)
[2019-08-14] MEDS: DIGOXIN 125 MCG TAB PO SCH (09:01)
[2019-08-14] MEDS: ASPIRIN 81 MG PO SCH (09:01)
[2019-08-14] MEDS: ALLOPURINOL 100 MG TAB PO SCH ×2 (09:01→20:52)
[2019-08-14] MEDS: PREGABALIN 75 MG CAP PO SCH (09:01)
[2019-08-14] MEDS: PANTOPRAZOLE 40 MG TABLET PO SCH ×2 (09:01→20:51)
[2019-08-14] MEDS: CHOLECALCIFEROL 1,000 UNIT TAB PO SCH (09:01)
[2019-08-14] MEDS: METOPROLOL TARTRATE 50 MG TAB PO SCH ×2 (09:01→20:51)
[2019-08-14] MEDS: DOCUSATE 100 MG CAP PO SCH ×2 (09:06→20:51)
--- NOTE | 2019-08-14 09:46 | CDI ---
Documentation Clarification Form Date: 08/14/2019 9:34:22 AM From: Cindy PaezVillarrealRYLAN silverman, CCDS Admit Date: 08/02/2019 6:54:00 PM Patient Name: Arnold Alfredo Visit Number: [id number] Discharge Date: ATTENTION: The Clinical Documentation Specialists (CDI) and [facility] Coding Staff appreciate your assistance in clarifying documentation. Please respond to the clarification below the line at the bottom and electronically sign. The CDI & [facility] Coding staff will review the response and follow-up if needed. Please note: Queries are made part of the Legal Health Record. If you have any questions, please contact the author of this message via ITS. Dr. Tierra Salguero: Per the 08/10 attending progress note: "Diabetes mellitus type II, uncontrolled with hypoglycemia/". Per the 08/13 attending progress ntoe: "Diabetes mellitus type II, uncontrolled." History/Risk Factors: DM II, Atrial fibrillation, Hypertension, COPD, GERD, SUNIL, bilateral neuropathy & morbidly obese w/BMI >64. Clinical Indicators: Presented w/SOB, increased swelling & abdominal wall swelling, slight cough. Diagnosed with acute on chronic CHF exacerbation diastolic dysfunction, Persistent atrial fibrillation and Acute renal failure possibly ATN with CKD stage III probably nephrosclerosis. LAB: 08/02 Glucose: 125^; 08/04 66*; 08/06 183^; 08/09 119^; 08/13 206^. Treatment: IV Calcium Chloride, INH Albuterol, IV Dextrose, IV Insulin, IV NaBicarb, IV Lasix, O2 4Lnc In order to capture the severity of Illness and necessary documentation specificity, please clarify: DM Type 2 o With Hyperglycemia o Without Hyperglycemia o With Hypoglycemia o Without Hyperglycemia Other, please specify Unable to Determine (Last Revision: August 2017) DM Type 2 Without Hyperglycemia MTDD
[2019-08-14 11:41] LABS: Glucose,Whole Blood 122 mg/dL (75-99)
--- NOTE | 2019-08-14 13:43 | PN ---
PROGRESS NOTE The patient is seen for followup for acute kidney injury, severe volume overload. He was maintained on Bumex drip, which was switched over to IV push Bumex. The patient has significant metabolic alkalosis. He is still complaining of significant scrotal edema. Renal function is stable. PHYSICAL EXAMINATION: On examination, blood pressure this morning 140/59, heart rate is 72 per minute. He is afebrile. EXAMINATION OF THE HEART: S1, S2. EXAMINATION OF THE LUNGS: Bilateral breath sounds are heard. Abdomen is soft, nontender. Examination of lower extremities shows chronic skin changes, both extremities are wrapped. Abdomen is morbidly obese. BREAKER ENGINEER EXAM: Grossly intact. LABS: Labs show sodium 139, potassium 3.8, BUN 56, creatinine 2.3, CO2 is 47. Hemoglobin 10.0. Calcium was 10.4. ASSESSMENT: 1. Acute kidney injury mainly cardiorenal, renal function fairly stable. 2. Severe volume overload with severe scrotal edema, maintained on IV Bumex, which we can continue. 3. Metabolic alkalosis secondary to diuresis as well as compensatory mechanism for chronic respiratory acidosis. 4. Mild hypercalcemia. Patient is not on any calcium supplements. I will check a PTH level. He is on vitamin D. We will also check a vitamin D level. PLAN: Continue with IV Bumex. Check a PTH and vitamin D level. MMODL / IJN: [id number] /
--- NOTE | 2019-08-14 16:09 | P.PN ---
Subjective Progress Note Date: 08/14/19 Principal diagnosis: Acute on chronic hypercapnic and hypoxemic respiratory failure Acute on chronic diastolic congestive heart failure Mr. Alfredo is a 58-year-old male with a past medical history of morbid obesity status post pediatric surgery, diverticulitis mellitus, hypertension, hyper lipidemia, congestive heart failure, chronic atrial fibrillation, obstructive sleep apnea on BiPAP, hypoxemic respiratory failure admitted for increasing shortness of breath and confusion. Patient is being treated for acute diastolic congestive heart failure exacerbation. On 08/13/2019- as per the nursing report patient has been having a lot of urinary output. He lost about 12 pounds in the past 3 days. Overall patient is doing much better. Patient mentions that his breathing has improved. But he still complains of itching sensation in his abdominal folds. Patient's lower extremities have been wrapped in Kerlix to help with the lower extremity swelling. In the morning the nurse noticed that his toes have been dusky and little cold, but he had good dorsalis pedis pulses. After the Kerlix has been loosened, the color improved and they're warm to touch now. Patient has been discontinued off his bumex drip this morning. On 08/14/2019 -patient has been off of Bumex states, he was getting IV Bumex and also IV Diamox. He seems to be responding well to the current regimen with good urinary output. Patient still has significant scrotal and abdominal wall edema. He states that his breathing is improved. He was able to get out of the bed couple of times yesterday. He denies having any chest pain or palpitations. No abdominal pain nausea vomiting or diarrhea. No fevers chills or rigors. Active Medications Acetaminophen (Tylenol Tab) 1,000 mg PO Q6HR PRN PRN Reason: Fever and/ or Pain Last Admin: 08/14/19 06:03 Dose: 1,000 mg Documented by: Acetazolamide Sodium (Diamox) 250 mg IV Q12HR [facility] Last Admin: 08/14/19 09:00 Dose: 250 mg Documented by: Albuterol/Ipratropium (Duoneb 0.5 Mg-3 Mg/3 Ml Soln) 3 ml INHALATION RT-QID PRN PRN Reason: Shortness Of Breath Or Wheezing Last Admin: 08/13/19 20:36 Dose: 3 ml Documented by: Allopurinol (Zyloprim) 100 mg PO BID [facility] Last Admin: 08/14/19 09:01 Dose: 100 mg Documented by: Aspirin (Aspirin) 81 mg PO DAILY [facility] Last Admin: 08/14/19 09:01 Dose: 81 mg Documented by: Atorvastatin Calcium (Lipitor) 10 mg PO HS [facility] Last Admin: 08/13/19 21:46 Dose: 10 mg Documented by: Budesonide/Formoterol Fumarate (Symbicort 80-4.5 Mcg Inhaler) 2 puff INHALATION RT-BID [facility] Last Admin: 08/14/19 07:49 Dose: 2 puff Documented by: Bumetanide (Bumex) 2 mg IVP BID [facility] Last Admin: 08/14/19 09:00 Dose: 2 mg Documented by: Cephalexin (Keflex) 250 mg PO Q6HR [facility] Last Admin: 08/14/19 11:35 Dose: 250 mg Documented by: Cholecalciferol (Vitamin D3 (25 Mcg = 1000 Iu)) 2,000 unit PO DAILY [facility] Last Admin: 08/14/19 09:01 Dose: 2,000 unit Documented by: Dabigatran (Pradaxa) 75 mg PO BID [facility] Last Admin: 08/14/19 09:00 Dose: 75 mg Documented by: Digoxin (Lanoxin) 125 mcg PO DAILY [facility] Last Admin: 08/14/19 09:01 Dose: 125 mcg Documented by: Docusate Sodium (Colace) 100 mg PO BID [facility] Last Admin: 08/14/19 09:06 Dose: Not Given Documented by: Lactic Acid (Lac-Hydrin 12%) 1 applic TOPICAL BID PRN PRN Reason: Dry Skin Last Admin: 08/04/19 10:11 Dose: 1 applic Documented by: Lactulose (Cephulac) 10 gm PO TID PRN PRN Reason: Constipation Stop: 08/18/19 11:25 Metolazone (Zaroxolyn) 5 mg PO DAILY [facility] Last Admin: 08/14/19 09:00 Dose: 5 mg Documented by: Metoprolol Tartrate (Lopressor) 100 mg PO BID [facility] Last Admin: 08/14/19 09:01 Dose: 100 mg Documented by: Miconazole Nitrate (Monistat-Derm) 1 applic TOPICAL DAILY PRN PRN Reason: YEAST INFECTION Last Admin: 08/11/19 08:32 Dose: 1 applic Documented by: Midodrine (Proamatine) 10 mg PO AC-BID [facility] Last Admin: 08/14/19 06:00 Dose: 10 mg Documented by: Pantoprazole Sodium (Protonix) 40 mg PO BID [facility] Last Admin: 08/14/19 09:01 Dose: 40 mg Documented by: Pregabalin (Lyrica) 75 mg PO DAILY [facility] Last Admin: 08/14/19 09:01 Dose: 75 mg Documented by: Silver Sulfadiazine (Silvadene Cream) 1 applic TOPICAL HS [facility] Last Admin: 08/13/19 10:50 Dose: 1 applic Documented by: Spironolactone (Aldactone) 25 mg PO DAILY [facility] Last Admin: 08/14/19 09:00 Dose: 25 mg Documented by: Objective - Vital Signs Vital signs: Vital Signs Temp 97.7 F 08/14/19 15:02 Pulse 82 08/14/19 15:07 Resp 16 08/14/19 15:07 BP 114/58 08/14/19 15:02 Pulse Ox 89 L 08/14/19 15:02 Intake & Output 08/13/19 08/14/19 08/14/19 18:59 06:59 18:59 Intake Total 950 530 790 Output Total 1050 2995 1901 Balance -100 -3189 -1111 Weight 195.8 kg Intake: IV 30 30 110 Invasive Line 4 30 30 40 Invasive Line 5 70 Oral 920 500 680 Output: Urine 1050 2995 1900 Stool 1 Other: Voiding Method Urinal Urinal Urinal # Voids 1 - Exam GENERAL: Lying in bed, awake EYES: Pupils equal. Conjunctiva normal. HEENT: External appearance of nose and ears normal, oral cavity grossly normal. NECK: Short, thick, JVD unable to assess; masses not palpable. HEART: Distant heart sounds,; edema present, with pendular lower abdomen. LUNGS: Respiratory rate increased, distance breath sounds. ABDOMEN: Soft, large, some evidence of fungal infection in the groin, nontender. Penis embedded in his abdominal folds. Scrotal edema positive. PSYCH: Alert and oriented x3; mood and affect normal. NEUROLOGICAL: Cranial nerves grossly intact - Labs CBC & Chem 7: 08/14/19 06:03 08/14/19 06:03 Labs: Abnormal Lab Results - Last 24 Hours (Table) 08/13/19 08/13/19 08/14/19 Range/Units 16:51 20:32 06:03 RBC (4.30-5.90) m/uL Hgb (13.0-17.5) gm/dL Hct (39.0-53.0) % MCHC (31.0-37.0) g/dL RDW (11.5-15.5) % Chloride 87 L (98-107) mmol/L Carbon Dioxide 47 H* (22-30) mmol/L BUN 56 H (9-20) mg/dL Creatinine 2.32 H (0.66-1.25) mg/dL Glucose 117 H (74-99) mg/dL POC Glucose (mg/dL) 134 H 206 H (75-99) mg/dL Calcium 10.4 H (8.4-10.2) mg/dL 08/14/19 08/14/19 Range/Units 06:03 11:39 RBC 3.85 L (4.30-5.90) m/uL Hgb 10.0 L (13.0-17.5) gm/dL Hct 33.9 L (39.0-53.0) % MCHC 29.4 L (31.0-37.0) g/dL RDW 16.5 H (11.5-15.5) % Chloride (98-107) mmol/L Carbon Dioxide (22-30) mmol/L BUN (9-20) mg/dL Creatinine (0.66-1.25) mg/dL Glucose (74-99) mg/dL POC Glucose (mg/dL) 122 H (75-99) mg/dL Calcium (8.4-10.2) mg/dL Assessment and Plan Assessment: Assessment: -Acute on chronic congestive heart failure exacerbation from diastolic dys function EF 60-65%, -Persistent atrial fibrillation - rate controlled now -Acute renal failure possibly ATN multifactorial, including hypotension, patient also is on Bactrim home - creatinine trending down slowly -Chronic kidney disease stage III probably nephrosclerosis -Morbid obesity BMI 57 -Contraction alkalosis -COPD -Diabetes mellitus type 2, uncontrolled -GERD -Hyperlipidemia -Essential hypertension -Chronic medical debility -Obstructive sleep apnea -Diabetic peripheral neuropathy -Traumatic hematuria from Mccloud catheter - resolved PLAN: Patient has lost around 56 pounds since admission, she shows much improvement in his lower extremity swelling and his breathing is improved. His Bumex drip has been discontinued. He has been started on IV Bumex and IV Diamox. Continue with the current medication regimen. Overall prognosis is guarded. Continue with GI and DVT prophylaxis. Further recommendations depending on the progress of the patient.
[2019-08-14 17:04] LABS: Glucose,Whole Blood 233 mg/dL (75-99)
--- NOTE | 2019-08-14 18:36 | P.PN ---
Subjective Progress Note Date: 08/14/19 Orbital obesity 8-year-old male patient with obesity hypoventilation syndrome, COPD, BMI of 57, chronic hypoxic and hypercapnic respiratory failure who presented with worsening shortness of breath, acute on top of chronic hypoxic/hypercapnic respiratory failure with massive fluid overload. The patient's chronic A. fib. The patient has chronic CHF along with hypertension hyperlipidemia and diabetes mellitus. He has undergone previous bariatric surgery. Note that the patient has been diuresed aggressively. He is on IV Lasix. He did develop some metabolic alkalosis. Creatinine remains stable at 2.3. The patient was a Bumex drip and currently receiving 2 mg Bumex every 12 hours. He is awake and alert. Following commands and answering questions. He is complaining of some discomfort in his lower abdominal area where the abdominal apron is. There is no yeast or any skin ulceration. There is some probably irritation from urinary incontinence with urine irritating the skin. Does not have a Mccloud catheter in place. No significant leukocytosis. Serum bicarbonate 47. He is on long-term and to coagulation with Pradaxa Objective - Vital Signs Vital signs: Vital Signs Temp 97.7 F 08/14/19 15:02 Pulse 82 08/14/19 15:07 Resp 16 08/14/19 15:07 BP 114/58 08/14/19 15:02 Pulse Ox 89 L 08/14/19 15:02 Intake & Output 08/13/19 08/14/19 08/14/19 18:59 06:59 18:59 Intake Total 950 530 790 Output Total 1050 2995 1901 Balance -100 -2922 -1111 Weight 195.8 kg Intake: IV 30 30 110 Invasive Line 4 30 30 40 Invasive Line 5 70 Oral 920 500 680 Output: Urine 1050 2995 1900 Stool 1 Other: Voiding Method Urinal Urinal Urinal # Voids 1 - Exam GENERAL EXAM: Alert, 58-year-old morbidly obese white male currently on 2 L of oxygen, comfortable in no apparent distress. HEAD: Normocephalic/atraumatic. EYES: Normal reaction of pupils, equal size. Conjunctiva pink, sclera white. NOSE: Clear with pink turbinates. THROAT: No erythema or exudates. NECK: No masses, no JVD, no thyroid enlargement, no adenopathy. CHEST: No chest wall deformity. Symmetrical expansion. LUNGS: Equal air entry with faint crackles in posterior bases. CVS: Regular rate and rhythm, normal S1 and S2, no gallops, no murmurs, no rubs ABDOMEN: Soft, nontender. No hepatosplenomegaly, normal bowel sounds, no guarding or rigidity. Abdomen is obese, with some abdominal wall edema, and some slight erythema, but no weeping EXTREMITIES: No clubbing, 2-3+ edema, no cyanosis, 2+ pulses and upper and lower extremities. MUSCULOSKELETAL: Muscle strength and tone normal. SPINE: No scoliosis or deformity SKIN: No rashes CENTRAL NERVOUS SYSTEM: No focal deficits, tone is normal in all 4 extremities. PSYCHIATRIC: Alert and oriented -3. Appropriate affect. Intact judgment and insight. - Labs CBC & Chem 7: 08/14/19 06:03 08/14/19 06:03 Labs: Abnormal Lab Results - Last 24 Hours (Table) 08/13/19 08/14/19 08/14/19 Range/Units 20:32 06:03 06:03 RBC 3.85 L (4.30-5.90) m/uL Hgb 10.0 L (13.0-17.5) gm/dL Hct 33.9 L (39.0-53.0) % MCHC 29.4 L (31.0-37.0) g/dL RDW 16.5 H (11.5-15.5) % Chloride 87 L (98-107) mmol/L Carbon Dioxide 47 H* (22-30) mmol/L BUN 56 H (9-20) mg/dL Creatinine 2.32 H (0.66-1.25) mg/dL Glucose 117 H (74-99) mg/dL POC Glucose (mg/dL) 206 H (75-99) mg/dL Calcium 10.4 H (8.4-10.2) mg/dL 08/14/19 08/14/19 Range/Units 11:39 16:51 RBC (4.30-5.90) m/uL Hgb (13.0-17.5) gm/dL Hct (39.0-53.0) % MCHC (31.0-37.0) g/dL RDW (11.5-15.5) % Chloride (98-107) mmol/L Carbon Dioxide (22-30) mmol/L BUN (9-20) mg/dL Creatinine (0.66-1.25) mg/dL Glucose (74-99) mg/dL POC Glucose (mg/dL) 122 H 233 H (75-99) mg/dL Calcium (8.4-10.2) mg/dL Assessment and Plan Plan: #1. Acute on chronic hypercapnic and hypoxemic respiratory failure secondary to obesity hypoventilation syndrome with a BMI of 57.0 and there has been acute on top of chronic hypoxic/hypercapnic respiratory failure due to related to acute exacerbation of chronic congestive heart failure with preserved EF and massive fluid overload. The patient is improving with diuretics. The patient is currently on BiPAP at a pressure of 16/6 cm of water. #2. COPD, on home oxygen, baseline FEV1 is unknown, this is assumed to be mild and the patient probably has a component of obesity hypoventilation syndrome as the main contributing factor for his chronic hypoxemic and hypercapnic respiratory failure. #3. Acute on chronic renal failure. Creatinine improving currently 2.3 and the creatinine is stable for now as the patient is still being diuresed aggressively with IV Bumex #4. Positive troponins, could be related to hypoxemia and CHF, patient denied any chest pain, EKG showed A. fib with a rate of 109, without acute ischemic changes #5. Chronic A. fib on Pradaxa #6. Morbid obesity status post bariatric surgery, BMI 58.4 kg/m #7. Diabetes mellitus type 2 with neuropathy #8. Obstructive sleep apnea on home BiPAP #9. Hypertension #10. Hyperlipidemia #11. Former smoker #12. Previous MRSA infection Plan Continue BiPAP. Continue IV Lasix. Monitor renal function. Monitor electrolytes. Watch for worsening of metabolic alkalosis. Lower extremity/Pedal edema is improving slowly. The patient is less short of breath. We'll continue to follow.
[2019-08-14 19:55] LABS: Glucose,Whole Blood 155 mg/dL (75-99)
[2019-08-14] MEDS: ATORVASTATIN 10 MG TAB PO SCH (20:51)
[2019-08-14] MEDS: SILVER sulfADIAZINE Cream 400 GM 1 APPLIC APPLIC TOPICAL SCH (20:52)
[2019-08-15 05:59] LABS: Glucose,Whole Blood 131 mg/dL (75-99)
[2019-08-15 06:24] LABS: Calcium 9.9 mg/dL (8.4-10.2); Potassium 3.8 mmol/L (3.5-5.1)
[2019-08-15] MEDS: CEPHALEXIN 250 MG CAP PO SCH ×3 (06:55→18:18)
[2019-08-15] MEDS: MIDODRINE 5 MG TAB PO SCH ×2 (06:57→18:16)
[2019-08-15] MEDS: SYMBICORT 80-4.5 MCG INHALER INHALATION SCH ×2 (08:02→20:07)
[2019-08-15] MEDS: METOPROLOL TARTRATE 50 MG TAB PO SCH ×2 (10:59→21:31)
[2019-08-15] MEDS: DIGOXIN 125 MCG TAB PO SCH (10:59)
[2019-08-15] MEDS: CHOLECALCIFEROL 1,000 UNIT TAB PO SCH (10:59)
[2019-08-15] MEDS: ALLOPURINOL 100 MG TAB PO SCH ×2 (10:59→21:30)
[2019-08-15] MEDS: PANTOPRAZOLE 40 MG TABLET PO SCH ×2 (10:59→21:31)
[2019-08-15] MEDS: ASPIRIN 81 MG PO SCH (10:59)
[2019-08-15] MEDS: DABIGATRAN 75 MG CAP PO SCH ×2 (11:00→21:32)
[2019-08-15] MEDS: BUMETANIDE 0.25 MG/ML 4 ML VIAL IVP SCH ×2 (11:00→21:31)
[2019-08-15] MEDS: PREGABALIN 75 MG CAP PO SCH ×3 (11:00→21:38)
[2019-08-15] MEDS: METOLAZONE 5 MG TAB PO SCH (11:00)
[2019-08-15] MEDS: SPIRONOLACTONE 25 MG TAB PO SCH (11:01)
[2019-08-15] MEDS: DOCUSATE 100 MG CAP PO SCH ×2 (11:17→21:31)
[2019-08-15 11:36] LABS: Glucose,Whole Blood 122 mg/dL (75-99)
[2019-08-15 13:12] VITALS: BMI 55.5
--- NOTE | 2019-08-15 14:02 | P.PN ---
Subjective 58-year-old male with a past medical history of morbid obesity status post pediatric surgery, diverticulitis mellitus, hypertension, hyper lipidemia, congestive heart failure, chronic atrial fibrillation, obstructive sleep apnea on BiPAP, hypoxemic respiratory failure admitted for increasing shortness of breath and confusion. Patient is being treated for acute diastolic congestive heart failure exacerbation. On 08/13/2019- as per the nursing report patient has been having a lot of urinary output. He lost about 12 pounds in the past 3 days. Overall patient is doing much better. Patient mentions that his breathing has improved. But he s till complains of itching sensation in his abdominal folds. Patient's lower extremities have been wrapped in Kerlix to help with the lower extremity swelling. In the morning the nurse noticed that his toes have been dusky and little cold, but he had good dorsalis pedis pulses. After the Kerlix has been loosened, the color improved and they're warm to touch now. Patient has been discontinued off his bumex drip this morning. On 08/14/2019 -patient has been off of Bumex states, he was getting IV Bumex and also IV Diamox. He seems to be responding well to the current regimen with good urinary output. Patient still has significant scrotal and abdominal wall edema. He states that his breathing is improved. He was able to get out of the bed couple of times yesterday. He denies having any chest pain or palpitations. No abdominal pain nausea vomiting or diarrhea. No fevers chills or rigors. 08/15/2019 Patient is doing significantly better. Patient is presently on oral Bumex and Diamox. We'll continue with diuretic therapy for today and for possibly can be discharged tomorrow. Still has significant swelling in both legs significant in the right leg.I discussed her Bactrim because the poor renal function which appears to be chronic kidney disease. we'll continue with the Keflex for possible right legi nfection. Constitutional: Denied any fatigue denied any fever. Cardio vascular: denied any chest pain, palpitations Gastrointestinal denied any nausea vomiting Pulmonary: Denied any shortness of breath cough Neurologic denied any new focal deficits All inpatient medications were reviewed and appropriate changes in these medications as dictated in the interval history and assessment and plan. Objective - Vital Signs Vital signs: Vital Signs Temp 98.2 F 08/15/19 12:00 Pulse 73 08/15/19 12:00 Resp 16 08/15/19 12:00 BP 108/63 08/15/19 12:00 Pulse Ox 89 L 08/15/19 12:00 Intake & Output 08/14/19 08/15/19 08/15/19 18:59 06:59 18:59 Intake Total 1270 30 520 Output Total 1901 1452 600 Balance -631 -1422 -80 Weight 191.2 kg 191.2 kg Intake: IV 110 30 20 Invasive Line 4 40 Invasive Line 5 70 30 20 Oral 1160 500 Output: Urine 1900 1450 600 Stool 1 2 Other: Voiding Method Urinal Urinal Urinal # Bowel Movements 1 - Exam PHYSICAL EXAMINATION: GENERAL: The patient is alert and oriented x3, not in any acute distress. Well developed, well nourished. obese HEENT: Pupils are round and equally reacting to light. EOMI. No scleral icterus. No conjunctival pallor. Normocephalic, atraumatic. No pharyngeal erythema. No thyromegaly. CARDIOVASCULAR: S1 and S2 present. No murmurs, rubs, or gallops. PULMONARY: Chest is clear to auscultation, no wheezing or crackles. ABDOMEN: Soft, nontender, nondistended, normoactive bowel sounds. No palpable organomegaly. MUSCULOSKELETAL: No joint swelling or deformity. EXTREMITIES: No cyanosis, clubbing,significant bilateral pedal edema right leg is covered with as managed NEUROLOGICAL: Gross neurological examination did not reveal any focal deficits. SKIN: No rashes. - Labs CBC & Chem 7: 08/14/19 06:03 08/15/19 05:26 Labs: Abnormal Lab Results - Last 24 Hours (Table) 08/14/19 08/14/19 08/14/19 Range/Units 06:03 16:51 19:53 Chloride (98-107) mmol/L Carbon Dioxide (22-30) mmol/L BUN (9-20) mg/dL Creatinine (0.66-1.25) mg/dL Glucose (74-99) mg/dL POC Glucose (mg/dL) 233 H 155 H (75-99) mg/dL Vitamin D 25-Hydroxy 16.2 L (30.0-100.0) ng/mL 10/15/19 10/15/19 10/15/19 Range/Units 05:26 05:54 11:30 Chloride 89 L (98-107) mmol/L Carbon Dioxide 43 H* (22-30) mmol/L BUN 57 H (9-20) mg/dL Creatinine 2.29 H (0.66-1.25) mg/dL Glucose 111 H (74-99) mg/dL POC Glucose (mg/dL) 131 H 122 H (75-99) mg/dL Vitamin D 25-Hydroxy (30.0-100.0) ng/mL Assessment and Plan Plan: -Acute on chronic congestive heart failure exacerbation from diastolic dysfunction EF 60-65%, -Persistent atrial fibrillation - rate controlled now -Acute renal failure possibly ATN multifactorial, including hypotension, patient also is on Bactrim home - creatinine patient is stable and patient probably has cardiorenal syndrome and this is chronic kidney disease. -Chronic kidney disease stage III probably nephrosclerosis -Morbid obesity BMI 57 -Contraction alkalosispatient is on Diamox at this time. Which probably to be discontinued upon discharge -COPD -Diabetes mellitus type 2, uncontrolled -GERD -Hyperlipidemia -Essential hypertension -Chronic medical debility -Obstructive sleep apnea -Diabetic peripheral neuropathy -Traumatic hematuria from Mccloud catheter - resolved , possibly of discharge tomorrow to subacute rehabilitation
--- NOTE | 2019-08-15 15:32 | PN ---
PROGRESS NOTE Patient is seen for acute kidney injury and severe volume overload. He has been complaining of significant scrotal edema which has been slowly improving. Patient is maintained on IV Bumex. His weight has been decreasing, although it is the same as yesterday. A 24 hour urine output of about 4.0 L. PHYSICAL EXAMINATION: On examination today, blood pressure was 132/67, heart rate 73 per minute, patient is afebrile. Examination of the heart S1, S2. Examination of the lungs, bilateral breath sounds are heard. Abdomen is soft, non-tender and morbidly obese. Examination of the lower extremities shows bilateral extremities to be wrapped. COLLECTIONS ASSISTANT exam grossly intact. LABS: Show sodium 139, potassium 3.8, chloride 89, CO2 is 43, BUN 57, creatinine 2.29. ASSESSMENT: 1. Acute kidney injury, cardiorenal, currently slowly improving. 2. Severe volume overload, continuing to improve. Patient is maintained on IV Bumex, which we will continue. 3. Metabolic alkalosis, multifactorial, associated with diuresis as well as compensatory mechanism for respiratory acidosis which is chronic. 4. Severe scrotal edema as part of volume overload, slowly improving. 5. Morbid obesity. PLAN: Continue with Bumex. Continue to monitor electrolytes. MMODL / IJN: [id number] /
[2019-08-15 17:12] VITALS: RESP 18
[2019-08-15 17:37] LABS: Glucose,Whole Blood 137 mg/dL (75-99)
[2019-08-15 21:12] LABS: Glucose,Whole Blood 159 mg/dL (75-99)
[2019-08-15] MEDS: ATORVASTATIN 10 MG TAB PO SCH (21:30)
[2019-08-16] MEDS ORDERED: CEPHALEXIN 250 MG CAP ONE ×2
[2019-08-16 07:18] LABS: Glucose,Whole Blood 118 mg/dL (75-99)
[2019-08-16 08:04] LABS: Calcium 9.6 mg/dL (8.4-10.2); Potassium 3.4 mmol/L (3.5-5.1)
[2019-08-16] MEDS: SYMBICORT 80-4.5 MCG INHALER INHALATION SCH (08:48)
[2019-08-16] MEDS: SILVER sulfADIAZINE Cream 400 GM 1 APPLIC APPLIC TOPICAL SCH (09:11)
[2019-08-16] MEDS: CEPHALEXIN 250 MG CAP PO SCH ×4 (09:11→16:10)
[2019-08-16] MEDS: PREGABALIN 75 MG CAP PO SCH ×2 (09:17→09:22)
[2019-08-16] MEDS: CHOLECALCIFEROL 1,000 UNIT TAB PO SCH (09:17)
[2019-08-16] MEDS: METOPROLOL TARTRATE 50 MG TAB PO SCH (09:18)
[2019-08-16] MEDS: MIDODRINE 5 MG TAB PO SCH ×2 (09:18→16:10)
[2019-08-16] MEDS: SPIRONOLACTONE 25 MG TAB PO SCH (09:19)
[2019-08-16] MEDS: ALLOPURINOL 100 MG TAB PO SCH (09:19)
[2019-08-16] MEDS: DOCUSATE 100 MG CAP PO SCH (09:19)
[2019-08-16] MEDS: PANTOPRAZOLE 40 MG TABLET PO SCH (09:19)
[2019-08-16] MEDS: ASPIRIN 81 MG PO SCH (09:19)
[2019-08-16] MEDS: DIGOXIN 125 MCG TAB PO SCH (09:19)
[2019-08-16] MEDS: BUMETANIDE 0.25 MG/ML 4 ML VIAL IVP SCH (09:21)
[2019-08-16] MEDS: DABIGATRAN 75 MG CAP PO SCH (09:21)
[2019-08-16] MEDS: METOLAZONE 5 MG TAB PO SCH (09:21)
[2019-08-16 09:44] VITALS: TEMP 97.8
--- NOTE | 2019-08-16 11:01 | P.PN ---
Subjective Patient is seen in follow-up for acute kidney injury and chronic kidney disease. Patient has chronic kidney disease stage III with baseline creatinine in the range of 1.5-1.7. Renal function is stable. Currently maintained on IV Bumex. Remains nonoliguric. Edema gradually improving. Weight trending down. Vital signs are stable. General: The patient appeared well nourished and normally developed. HEENT: Head exam is unremarkable. Neck is without jugular venous distension. LUNGS: Breath sounds decreased. HEART: Rate and Rhythm are regular. First and second heart sounds normal. No murmurs, rubs or gallops. ABDOMEN: Morbidly obese. Nontender. EXTREMITITES: 1+ edema. Chronic changes noted. Objective - Vital Signs Vital signs: Vital Signs Temp 97.8 F 08/16/19 09:34 Pulse 74 08/16/19 09:34 Resp 18 08/16/19 09:34 BP 116/63 08/16/19 09:34 Pulse Ox 93 L 08/16/19 09:34 Intake & Output 08/15/19 08/16/19 08/16/19 18:59 06:59 18:59 Intake Total 730 20 250 Output Total 900 1302 1001 Balance -170 -1282 -751 Weight 191.2 kg 190.01 kg Intake: IV 30 20 10 Invasive Line 5 30 20 10 Oral 700 240 Output: Urine 900 1300 1000 Stool 2 1 Other: Voiding Method Urinal Urinal Urinal # Voids 1 # Bowel Movements 2 2 - Labs CBC & Chem 7: 08/14/19 06:03 08/15/19 05:26 Labs: Abnormal Lab Results - Last 24 Hours (Table) 08/15/19 08/15/19 08/15/19 Range/Units 11:30 17:16 21:11 POC Glucose (mg/dL) 122 H 137 H 159 H (75-99) mg/dL 08/16/19 Range/Units 05:58 POC Glucose (mg/dL) 118 H (75-99) mg/dL Assessment and Plan Plan: Assessment: 1. Acute kidney injury secondary to ATN secondary to cardiorenal syndrome. Renal function stable. Creatinine 2.29 as of yesterday. 2. Metabolic alkalosis secondary to chronic respiratory acidosis and volume contraction from diuresis. Better. 3. Chronic kidney disease stage III with baseline creatinine in the range of 1.5-1.7. 4. Acute on chronic diastolic CHF with moderate pulmonary hypertension. 5. Hypokalemia secondary to diuresis. Magnesium normal. Status post replacement. 6. Morbid obesity. Plan: Change Bumex to 2 mg orally twice daily. Maintain metolazone and spironolactone. Add maintenance potassium supplementation. Monitor bicarb. Anticipated discharge to rehab soon. Repeat BMP and magnesium level 2-3 days postdischarge. Follow up outpatient in the next 1-2 weeks.
[2019-08-16 12:05] LABS: Glucose,Whole Blood 134 mg/dL (75-99)
[2019-08-16 12:50] VITALS: BP 102/55; PULSE 72
--- NOTE | 2019-08-16 14:42 | P.PN ---
Subjective Progress Note Date: 08/16/19 Principal diagnosis: Acute on chronic hypercapnic and hypoxemic respiratory failure related to acute exacerbation of CHF with diastolic dysfunction This is a 58-year-old white male patient of Dr. Fry, with past medical history of morbid obesity status post bariatric surgery, diabetes mellitus, hypertension, hyperlipidemia, chronic congestive heart failure, chronic A. fib, former smoker, COPD, obstructive sleep apnea on BiPAP therapy, hypoxemic respiratory failure related to COPD and CHF. Patient presented to the emergency department on 08/02/2019 for evaluation of increasing shortness of breath, confusion, and patient was seeing things that were not there, seeing waves in the carpet, seeing people that were not there. In addition his vision was blurred, he thought he may have been related to low oxygen level, he does not have a pulse ox but he felt that his oxygen level was probably low especially with any exertion. He states he has been compliant with his medications, he is on maintenance dose Lasix at home, he is on oral anticoagulation for history of A. fib. He denied any fever or chills, he did notice some increasing shakes in his legs and body, but denied any chest pain. Patient lives by himself, but he states his diet is probably not very compliant with low-sodium. No fever or chills, he normally wears 4 L of oxygen at home, patient is not familiar with his BiPAP settings, but he states his been using it consistently. Chest x-ray was taken in the emergency department, showing some mild atelectasis at the right lung base, and mild pulmonary congestion slightly increased from prior exam. Blood gas was taken in the emergency department showing acute on chronic hypercapnic respiratory failure. White count was normal, sodium was 136, pot assium is 5.8, chloride was 90, CO2 was 39, BNP was elevated at 3500, troponin was 0.091, 0.103, 0.101. Drug screen was done showing benzodiazepines, urinalysis was unremarkable. Patient was then placed on BiPAP with pressures of 12 and 6, and FiO2 45%, became more arousable, he was started on Lasix drip, brain CT was negative. At time of my evaluation patient is awake and alert, he is on 2 L of oxygen, off the BiPAP support, breathing easier, continues on Lasix drip at 10 mg per hour On 08/04/2019 patient seen in follow-up on selective care unit, he continues to diurese, he is in -3 L over the last 24 hours, lower extremity edema is improving, breathing easier, today's Lasix drip has been cut down to 5 mg per hour, patient is less short of breath, he was actually able to get up and take a shower today, he is on BiPAP support at night, and during the day he is on 4 L of oxygen is pulse ox is 96%, no fever or chills, lung sounds reveal diminished breath sounds bilaterally, still has lower extremity edema and abdominal wall edema, but overall improved. No acute events overnight, no complaint of chest pain, cardiology is following, On 08/16/2019 patient seen in follow-up with care unit, he is awake and alert, oriented 3, he wears BiPAP support at night, with pressures of 16 and 6, and FiO2 of 25%, he is currently on 2 L of oxygen with a pulse ox of 92%, no fever or chills, his breathing is stable, lung sounds reveal clear breath sounds, no rhonchi, no wheezing, he is currently on oral Bumex at 2 mg twice daily and Zaroxolyn at 5 mg daily, he was also getting IV Diamox for metabolic alkalosis. Hemodynamically stable, renal profile is relatively stable, nephrology is ai mcdonough, today's labs have been reviewed, showing potassium 3.4, chloride is 87, CO2 is 45, BUN of 56, creatinine is 2.36. Swelling in his abdominal wall and lower extremities is improving, weight is trending down, no acute events overnight, denies any chest pain. Objective - Vital Signs Vital signs: Vital Signs Temp 97.8 F 08/16/19 12:47 Pulse 72 08/16/19 12:47 Resp 18 08/16/19 12:47 BP 102/55 08/16/19 12:47 Pulse Ox 92 L 08/16/19 12:47 Intake & Output 08/15/19 08/16/19 08/16/19 18:59 06:59 18:59 Intake Total 730 20 500 Output Total 900 1302 2902 Balance -170 1282 -2402 Weight 191.2 kg 190.01 kg Intake: IV 30 20 20 Invasive Line 5 30 20 20 Oral 700 480 Output: Urine 900 1300 2900 Stool 2 2 Other: Voiding Method Urinal Urinal Urinal # Voids 1 # Bowel Movements 2 2 - Exam GENERAL EXAM: Alert, pleasant, 58-year-old obese white male currently on 2 L of oxygen off BiPAP support, comfortable in no apparent distress. HEAD: Normocephalic/atraumatic. EYES: Normal reaction of pupils, equal size. Conjunctiva pink, sclera white. NOSE: Clear with pink turbinates. THROAT: No erythema or exudates. NECK: No masses, no JVD, no thyroid enlargement, no adenopathy. CHEST: No chest wall deformity. Symmetrical expansion. LUNGS: Equal air entry with no crackles, wheeze, rhonchi or dullness. CVS: Regular rate and rhythm, normal S1 and S2, no gallops, no murmurs, no rubs ABDOMEN: Soft, nontender. No hepatosplenomegaly, normal bowel sounds, no guarding or rigidity. Abdomen is obese, with some abdominal wall edema, and some slight erythema, but no weeping EXTREMITIES: No clubbing, 2+ edema, no cyanosis, 2+ pulses and upper and lower extremities. MUSCULOSKELETAL: Muscle strength and tone normal. SPINE: No scoliosis or deformity SKIN: No rashes CENTRAL NERVOUS SYSTEM: Alert and oriented -3. No focal deficits, tone is normal in all 4 extremities. PSYCHIATRIC: Alert and oriented -3. Appropriate affect. Intact judgment and insight. - Labs CBC & Chem 7: 08/14/19 06:03 08/16/19 05:40 Labs: Abnormal Lab Results - Last 24 Hours (Table) 08/15/19 08/15/19 08/16/19 Range/Units 17:16 21:11 05:40 Potassium 3.4 L (3.5-5.1) mmol/L Chloride 87 L (98-107) mmol/L Carbon Dioxide 45 H* (22-30) mmol/L BUN 56 H (9-20) mg/dL Creatinine 2.36 H (0.66-1.25) mg/dL Glucose 115 H (74-99) mg/dL POC Glucose (mg/dL) 137 H 159 H (75-99) mg/dL 08/16/19 08/16/19 Range/Units 05:58 11:47 Potassium (3.5-5.1) mmol/L Chloride (98-107) mmol/L Carbon Dioxide (22-30) mmol/L BUN (9-20) mg/dL Creatinine (0.66-1.25) mg/dL Glucose (74-99) mg/dL POC Glucose (mg/dL) 118 H 134 H (75-99) mg/dL Assessment and Plan Plan: Assessment: #1. Acute on chronic hypercapnic and hypoxemic respiratory failure related to acute exacerbation of chronic congestive heart failure with preserved EF #2. COPD, on home oxygen, baseline FEV1 is unknown #3. Mild hyperkalemia, treated, and improved #4. Positive troponins, could be related to hypoxemia and CHF, patient denied any chest pain, EKG showed A. fib with a rate of 109, without acute ischemic changes #5. Chronic A. fib on Pradaxa #6. Morbid obesity status post bariatric surgery #7. Diabetes mellitus type 2 with neuropathy #8. Obstructive sleep apnea on home BiPAP #9. Hypertension #10. Hyperlipidemia #11. Former smoker #12. Previous MRSA infection Plan: Patient is doing well, no acute events overnight, profile is relatively stable, he is trending down, no worsening dyspnea, no complaints of chest pain, no fever or chills, he is maintaining negative fluid balance, he has been transitioned to oral diuretics. Pulmonary perspective patient is stable, and he is anticipated to go to subacute rehab at [facility] today. I performed a history & physical examination of the patient and discussed their management with my nurse practitioner, Sia Torres. I reviewed the nurse practitioner's note and agree with the documented findings and plan of care. Lung sounds are positive for diminished breath sounds. The findings and the impression was discussed with the patient. I attest to the documentation by the nurse practitioner. Time with Patient: Less than 30
--- NOTE | 2019-08-16 15:09 | P.DS ---
Providers Date of admission: 08/02/19 18:54 Expected date of discharge: 08/16/19 Attending physician: Ney Jenkins Consults: 08/02/19 18:54 Consult Physician Urgent Consulting Provider: [facility] Consult Reason/Comments: Elevated troponin Do you want consulting provider notified?: Yes Consult Physician Urgent Consulting Provider: Gabriela Gusman Consult Reason/Comments: Acute on chronic renal failure Do you want consulting provider notified?: Yes 08/03/19 12:54 Consult Physician Urgent Consulting Provider: Isiah Govea Consult Reason/Comments: shortness of breath, abnormal abgs Do you want consulting provider notified?: Yes Primary care physician: Aramis Fry MD Hospital Course: Hospital course: This is a 58-year-old patient who follows with visiting physicians Dr. Aramis Saleh. Her extensive medical history. Chronic stable medical conditions include atrial fibrillation, COPD, diabetes, GERD, hypertension, hyperlipidemia, Ana arthritis, obstructive sleep apnea, bilateral neuropathy. Patient normally uses a cane to get about. Lives alone. Patient's sister drops and to help about. Patient is morbidly obese with a BMI over 64. Patient's been becoming gradually short of breath for a few days with increasing lower extremity swelling and abdominal wall swelling 2. Slight cough. Appetite is okay. No change in bowel movement. No fever no chills. Patient also was being treated with Bactrim and Keflex appears for cellulitis. Patient is felt to have congestive heart failure. For strict I's and O's Mccloud catheter was placed. Does some blood in the Mccloud catheter. Consultations made to nephrology and cardio G. Denies any pain. Patient admitted with-CHF exacerbation from diastolic dysfunction EF 60-65%, atrial fibrillation with a rapid ventricular rate, acute renal failure possibly ATN. Patient is put on both Lasix drip and Bumex drip subsequently. Patient did use close to 30 L in negative fluid balance. Breathing better. Today-feeling better. Sitting up. Tolerating a diet. Discussion and discharge planning more than 35 minutes Consultants: Dr. Gusman at all from nephrology Dr. Saucedo at all from pulmonary Dr. ILEANA pham from cardiology Physical examination: VITAL SIGNS: 97.8, 72, 16, 102/55, 92% on 2 L GENERAL: Sitting up, comfortable EYES: Pupils equal. Conjunctiva normal. HEENT: External appearance of nose and ears normal, oral cavity grossly normal. NECK: Short, thick, JVD unable to assess; masses not palpable. HEART: Distant heart sounds,; edema present, with pendular lower abdomen. LUNGS: Respiratory rate increased, distance breath sounds. ABDOMEN: Soft, large, some evidence of fungal infection in the groin, nontender, liver spleen not palpable, no masses palpable. PSYCH: Alert and oriented x3; mood and affect normal. NEUROLOGICAL: Cranial nerves grossly intact; no facial asymmetry, power and sensation are decreased distally. INVESTIGATIONS, reviewed in the clinical context: Potassium 3.4 bun 56 creatinine 2.36 Admission testing: White count 7.1 hemoglobin 9.4 platelets 247 Potassium 5.8 BUN 77 creatinine 3.39 Creatinine January 2019 was 1.71 Troponin I 0.091 proBNP 3500 EKG tracing personally reviewed by me-atrial flutter fibrillation with rate of of 100 Chest x-ray film personally reviewed by me-cardiomegaly and pulmonary edema 2-D echocardiogram from January 2019-EF 60-65% with wall motion abnormality Discharge diagnoses: -Acute on chronic congestive heart failure exacerbation from diastolic dysfunction EF 60-65%, POA -Persistent atrial fibrillation rate uncontrolled POA -Acute kidney injury possibly ATN multifactorial, including hypotension, patient also is on Bactrim home. Which has been discontinued. -Chronic kidney disease stage III probably nephrosclerosis -Morbid obesity BMI 64.3 -Metabolic alkalosis from volume contraction -COPD -Diabetes mellitus type 2, uncontrolled with hypoglycemia -GERD -Hyperlipidemia -Essential hypertension -Chronic medical debility -Obstructive sleep apnea -Diabetic peripheral neuropathy -Traumatic hematuria from Mccloud catheter, much improved Disposition: ECF[facility] Patient Condition at Discharge: Stable Plan - Discharge Summary New Discharge Prescriptions: New Bumetanide [BUMEX] 2 mg PO BID@0900,1600 tab Lactulose [Cephulac] 10 gm PO TID PRN ml PRN Reason: Constipation Potassium Chloride ER [K-Dur 20] 20 meq PO BID tab.er.prt Metoprolol Tartrate [Lopressor] 100 mg PO BID tab Dabigatran [Pradaxa] 75 mg PO BID cap Midodrine [ProAmatine] 5 mg PO AC-TID #9 tab Sennosides-Docusate Sodium [Senokot-S] 1 tab PO DAILY #1 tablet SILVER sulfADIAZINE Cream [Silvadene 1% Cream] 1 applic TOPICAL HS applic Continue Fluticasone/Salmeterol [Advair 250-50 Diskus] 1 puff INHALATION RT-BID Allopurinol [Zyloprim] 100 mg PO BID Simvastatin [Zocor] 20 mg PO HS Cholecalciferol (Vitamin D3) [Vitamin D3] 2,000 unit PO DAILY Aspirin [Adult Low Dose Aspirin EC] 81 mg PO DAILY Ammonium Lactate Lotion [Lac-Hydrin 12% Lotion] 1 applic TOPICAL BID PRN PRN Reason: Dry Skin Miconazole Nitrate [Miconazole Nitrate 2%] 1 applic TOPICAL DAILY PRN PRN Reason: YEAST INFECTION Ipratropium-Albuterol Nebulize [Duoneb 0.5 mg-3 mg/3 ml Soln] 3 ml INHALATION RT-QID PRN PRN Reason: Shortness Of Breath Or Wheezing Omeprazole [PriLOSEC] 40 mg PO BID Spironolactone 25 mg PO DAILY Pregabalin [Lyrica] 75 mg PO BID #6 cap Changed Metolazone [Zaroxolyn] 5 mg PO DAILY #0 Discontinued Dabigatran [Pradaxa] 150 mg PO BID Furosemide [Lasix] 80 mg PO BID Digoxin [Lanoxin] 125 mcg PO DAILY glipiZIDE [Glucotrol] 5 mg PO DAILY clonazePAM [KlonoPIN] 1 mg PO BID #60 tab traZODone HCL 50 mg PO HS Docusate [Colace] 100 mg PO BID Metoprolol Succinate [Toprol XL] 150 mg PO DAILY Torsemide [Demadex] 40 mg PO DAILY Sulfamethox-Tmp 800-160Mg [Bactrim DS 800-160 mg] 2 tab PO Q12HR Cephalexin [Keflex] 1,000 mg PO Q6HR Discharge Medication List Allopurinol [Zyloprim] 100 mg PO BID 02/10/16 [History] Fluticasone/Salmeterol [Advair 250-50 Diskus] 1 puff INHALATION RT-BID 02/10/16 [History] Simvastatin [Zocor] 20 mg PO HS 02/10/16 [History] Ammonium Lactate Lotion [Lac-Hydrin 12% Lotion] 1 applic TOPICAL BID PRN 02/03/19 [History] Aspirin [Adult Low Dose Aspirin EC] 81 mg PO DAILY 02/03/19 [History] Cholecalciferol (Vitamin D3) [Vitamin D3] 2,000 unit PO DAILY 02/03/19 [History] Miconazole Nitrate [Miconazole Nitrate 2%] 1 applic TOPICAL DAILY PRN 02/03/19 [History] Ipratropium-Albuterol Nebulize [Duoneb 0.5 mg-3 mg/3 ml Soln] 3 ml INHALATION RT-QID PRN 08/02/19 [History] Omeprazole [PriLOSEC] 40 mg PO BID 08/02/19 [History] Spironolactone 25 mg PO DAILY 08/02/19 [History] Bumetanide [BUMEX] 2 mg PO BID@0900,1600 tab 08/16/19 [Rx] Dabigatran [Pradaxa] 75 mg PO BID cap 08/16/19 [Rx] Lactulose [Cephulac] 10 gm PO TID PRN ml 08/16/19 [Rx] Metolazone [Zaroxolyn] 5 mg PO DAILY #0 08/16/19 [Rx] Metoprolol Tartrate [Lopressor] 100 mg PO BID tab 08/16/19 [Rx] Midodrine [ProAmatine] 5 mg PO AC-TID #9 tab 08/16/19 [Rx] Potassium Chloride ER [K-Dur 20] 20 meq PO BID tab.er.prt 08/16/19 [Rx] Pregabalin [Lyrica] 75 mg PO BID #6 cap 08/16/19 [Rx] SILVER sulfADIAZINE Cream [Silvadene 1% Cream] 1 applic TOPICAL HS applic 08/16/19 [Rx] Sennosides-Docusate Sodium [Senokot-S] 1 tab PO DAILY #1 tablet 08/16/19 [Rx] Follow up Appointment(s)/Referral(s): [facility], [NON-STAFF] - 1 Week Aramis Fry MD [Primary Care Provider] - As Needed Quique Estrella MD [STAFF PHYSICIAN] - 08/17/19 Gabriela Gusman MD [STAFF PHYSICIAN] - 10 Days Activity/Diet/Wound Care/Special Instructions: CBC/BMP 3 days
[2019-08-16] MEDS ORDERED: BUMETANIDE 1 MG TAB PO SCH (16:00)
[2019-08-17] MEDS ORDERED: POTASSIUM CHLORIDE ER 20 MEQ TAB.ER PO SCH (09:00)
== END 2019-08-16 17:07 | DRG 291 ==
LOC: EC 14:33 → 3SCARD 18:54
PROVIDERS: ADMIT Hospitalist; ATTEND Hospitalist
DX: I13.0 Hypertensive heart and chronic kidney disease with heart failure and stage 1 through stage 4 chronic kidney disease, or unspecified chronic kidney disease (principal); N17.0 Acute kidney failure with tubular necrosis; I50.33 Acute on chronic diastolic (congestive) heart failure; J96.21 Acute and chronic respiratory failure with hypoxia; J96.22 Acute and chronic respiratory failure with hypercapnia; E66.2 Morbid (severe) obesity with alveolar hypoventilation; E87.4 Mixed disorder of acid-base balance; Z68.44 Body mass index [BMI] 60.0-69.9, adult; J98.11 Atelectasis; L03.90 Cellulitis, unspecified; Z87.891 Personal history of nicotine dependence; B37.9 Candidiasis, unspecified; D64.9 Anemia, unspecified; E11.22 Type 2 diabetes mellitus with diabetic chronic kidney disease; E11.42 Type 2 diabetes mellitus with diabetic polyneuropathy; E11.649 Type 2 diabetes mellitus with hypoglycemia without coma; E78.00 Pure hypercholesterolemia, unspecified; E78.5 Hyperlipidemia, unspecified; E83.52 Hypercalcemia; E87.5 Hyperkalemia; E87.6 Hypokalemia; T50.2X5A Adverse effect of carbonic-anhydrase inhibitors, benzothiadiazides and other diuretics, initial encounter; H57.9 Unspecified disorder of eye and adnexa; I48.91 Unspecified atrial fibrillation; I27.29 Other secondary pulmonary hypertension; I27.81 Cor pulmonale (chronic); Z79.02 Long term (current) use of antithrombotics/antiplatelets; I87.8 Other specified disorders of veins; J44.9 Chronic obstructive pulmonary disease, unspecified; K21.9 Gastro-esophageal reflux disease without esophagitis; R32 Unspecified urinary incontinence; K59.00 Constipation, unspecified; N18.3 Chronic kidney disease, stage 3 (moderate); N50.89 Other specified disorders of the male genital organs; Z79.51 Long term (current) use of inhaled steroids; Z79.82 Long term (current) use of aspirin; Z79.84 Long term (current) use of oral hypoglycemic drugs; Z79.899 Other long term (current) drug therapy; Z82.49 Family history of ischemic heart disease and other diseases of the circulatory system; Z82.5 Family history of asthma and other chronic lower respiratory diseases; Z82.62 Family history of osteoporosis; Z83.3 Family history of diabetes mellitus; Z86.14 Personal history of Methicillin resistant Staphylococcus aureus infection; Z98.84 Bariatric surgery status; Z99.81 Dependence on supplemental oxygen; Z60.2 Problems related to living alone; Z99.89 Dependence on other enabling machines and devices; Z87.19 Personal history of other diseases of the digestive system; T83.83XD Hemorrhage due to genitourinary prosthetic devices, implants and grafts, subsequent encounter; R31.9 Hematuria, unspecified; R79.89 Other specified abnormal findings of blood chemistry; M10.9 Gout, unspecified; I07.1 Rheumatic tricuspid insufficiency
CPT/HCPCS: 36415; 36600; 51701; 70450; 71045; 71046; 80048; 80053; 80306; 81001; 82306; 82805; 83605; 83735; 83880; 83970; 84484; 85025; 85610; 85730; 93005; 93306; 94640; 94660; 94760; 96374; 96375; 99285

== ENCOUNTER 2019-11-17 13:00 | Inpatient (IN) | payer MEDICARE ==
--- NOTE | 2019-11-17 13:17 | ED ---
General Adult HPI - General Stated complaint: SOB Time Seen by Provider: 11/17/19 13:00 Source: RN notes reviewed, old records reviewed - History of Present Illness Initial comments: This is a 59-year-old male who presents emergency department with past medical history significant for COPD as well as pulmonary edema. Patient states he's been having difficulty breathing for the last 2 days per patient states had a cough with a little bit of sputum production. Patient denies any fever chills per patient denies any chest pain or palpitations. Patient states he thinks she's had more swelling than normal. Patient states last time he felt like this is pCO2 was elevated. Patient denies any lightheadedness or dizziness. Patient denies any near syncopal episode. Patient denies any headache patient denies any numbness or weakness. - Related Data Home Medications Medication Instructions Recorded Confirmed Allopurinol [Zyloprim] 100 mg PO BID 02/10/16 11/17/19 Fluticasone/Salmeterol [Advair 1 puff INHALATION RT-BID 02/10/16 11/17/19 250-50 Diskus] Simvastatin [Zocor] 20 mg PO HS 02/10/16 11/17/19 Aspirin [Adult Low Dose Aspirin EC] 81 mg PO DAILY 02/03/19 11/17/19 Omeprazole [PriLOSEC] 40 mg PO BID 08/02/19 11/17/19 Spironolactone 25 mg PO DAILY 08/02/19 11/17/19 Albuterol Inhaler [Ventolin Hfa 2 puff INHALATION RT-Q6H PRN 11/17/19 11/17/19 Inhaler] Calcium Carbonate 500 mg PO DAILY 11/17/19 11/17/19 Dabigatran [Pradaxa] 150 mg PO BID 11/17/19 11/17/19 Furosemide [Lasix] 80 mg PO BID 11/17/19 11/17/19 HYDROcodone/APAP 7.5-325MG [Marion 1 tab PO TID PRN 11/17/19 11/17/19 7.5-325] Metoprolol Tartrate [Lopressor] 150 mg PO DAILY 11/17/19 11/17/19 Nystatin 100,000Unit/gm Cream 1 applic TOPICAL BID 11/17/19 11/17/19 [Mycostatin Cream] Pregabalin [Lyrica] 100 mg PO BID 11/17/19 11/17/19 clonazePAM [KlonoPIN] 1 mg PO BID 11/17/19 11/17/19 glipiZIDE [Glucotrol] 5 mg PO DAILY 11/17/19 11/17/19 traZODone HCL [Desyrel] 50 mg PO HS 11/17/19 11/17/19 Previous Rx's Medication Instructions Recorded Potassium Chloride ER [K-Dur 20] 20 meq PO BID tab.er.prt 08/16/19 Allergies Allergy/AdvReac Type Severity Reaction Status Date / Time No Known Allergies Allergy Verified 11/17/19 14:40 Review of Systems ROS Statement: Those systems with pertinent positive or pertinent negative responses have been documented in the HPI. ROS Other: All systems not noted in ROS Statement are negative. Past Medical History Past Medical History: Atrial Fibrillation, Heart Failure, COPD, Diabetes Mellitus, GERD/Reflux, Hyperlipidemia, Hypertension, Neurologic Disorder, Osteoarthritis (OA), Sleep Apnea/CPAP/BIPAP Additional Past Medical History / Comment(s): NIDDM, bilateral lower leg and feet neuropathy, gout-travels everywhere per pt History of Any Multi-Drug Resistant Organisms: MRSA Date of last positivie culture/infection: 2005 or 2007 per pt-tx while pt lived in [place] MDRO Source:: Low back Past Surgical History: Adenoidectomy, Tonsillectomy Additional Past Surgical History / Comment(s): 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 Past Anesthesia/Blood Transfusion Reactions: No Reported Reaction Past Psychological History: No Psychological Hx Reported, Anxiety Additional Psychological History / Comment(s): Pt resides alone. He uses a cane at times but uses a electric wheelchair more often. He drives. Smoking Status: Former smoker Past Alcohol Use History: Rare Additional Past Alcohol Use History / Comment(s): Pt started smoking in 1971 and quit in 1999. He was a pack and a half to two ppd smoker. Past Drug Use History: Marijuana - Past Family History Father Family Medical History: Coronary Artery Disease (CAD), Diabetes Mellitus Additional Family Medical History / Comment(s): Father had heart disease. He at age 74 of possible a ME-pt not sure. Mother Family Medical History: Congestive Heart Failure (CHF), COPD, Coronary Artery Disease (CAD) Additional Family Medical History / Comment(s): Mother had heart problems. She at age 72 yrs. She had osteoporosis. Brother(s) Family Medical History: No Reported History Sister(s) Family Medical History: Diabetes Mellitus Daughter(s) Family Medical History: No Reported History Son(s) Family Medical History: No Reported History General Exam - General Exam Comments Initial Comments: GENERAL: Patient is well-developed and well-nourished. Patient is nontoxic and well- hydrated and is in no acute distress. Patient is speaking in clear sentences on room air and satting 98% and not appearing in any respiratory distress. ENT: Neck is soft and supple. No significant lymphadenopathy is noted. Oropharynx is clear. Moist mucous membranes. Neck has full range of motion without eliciting any pain. EYES: The sclera were anicteric and conjunctiva were pink and moist. Extraocular movements were intact and pupils were equal round and reactive to light. Eyelids were unremarkable. PULMONARY: Unlabored respirations. Good breath sounds bilaterally. No audible rales rhonchi or wheezing was noted. CARDIOVASCULAR: There is a regular rate and rhythm without any murmurs gallops or rubs. ABDOMEN: Soft and nontender with normal bowel sounds. Patient is morbidly obese SKIN: Skin is clear with no lesions or rashes and otherwise unremarkable. NEUROLOGIC: Patient is alert and oriented x3. Cranial nerves II through XII are grossly intact. Motor and sensory are also intact. Normal speech, volume and content. Symmetrical smile. MUSCULOSKELETAL: Normal extremities with adequate strength and full range of motion. 2+ edema bilaterally LYMPHATICS: No significant lymphadenopathy is noted PSYCHIATRIC: Normal psychiatric evaluation. Course Vital Signs 11/17/19 11/17/19 11/17/19 13:18 13:19 13:30 Temperature Pulse Rate 98 81 Pulse Rate [ Pulse Oximetery ] Respiratory 22 20 20 Rate Blood Pressure 113/80 113/80 Blood Pressure [Left Arm] O2 Sat by Pulse 98 95 Oximetry 11/17/19 11/17/19 11/17/19 14:00 14:30 17:17 Temperature Pulse Rate 89 79 93 Pulse Rate [ Pulse Oximetery ] Respiratory 16 20 20 Rate Blood Pressure 110/70 Blood Pressure [Left Arm] O2 Sat by Pulse 94 L 95 96 Oximetry 11/17/19 11/17/19 11/17/19 17:19 18:30 19:40 Temperature 98.2 F Pulse Rate 94 94 Pulse Rate [ Pulse Oximetery ] Respiratory 26 H 23 Rate Blood Pressure 116/84 130/87 Blood Pressure [Left Arm] O2 Sat by Pulse 98 96 Oximetry 11/17/19 11/17/19 19:49 20:34 Temperature 98 F 98.2 F Pulse Rate 87 Pulse Rate [ 80 Pulse Oximetery ] Respiratory 18 21 Rate Blood Pressure 140/78 Blood Pressure 126/82 [Left Arm] O2 Sat by Pulse 96 98 Oximetry Medical Decision Making - Medical Decision Making Patient's EKG shows atrial fibrillation at 86 bpm QRS is 104 QT interval 358 QTC is 428. Patient's EKG shows no ST segment elevation or depression or T wave abnormalities are noted. Chest x-ray shows pulmonary edema. Patient has anemia some elevated troponin as well as an elevated pCO2 of 83. I spoke with Dr. Jenkins agreed to admit the patient admitted the patient wrote admitting orders and consult Dr. Govea. - Lab Data Result diagrams: 11/17/19 13:18 11/21/19 05:47 Lab Results 11/17/19 11/17/19 11/17/19 Range/Units 13:18 13:18 13:18 WBC 8.0 (3.8-10.6) k/uL RBC 3.99 L (4.30-5.90) m/uL Hgb 9.5 L (13.0-17.5) gm/dL Hct 32.0 L (39.0-53.0) % MCV 80.4 (80.0-100.0) fL MCH 23.9 L (25.0-35.0) pg MCHC 29.8 L (31.0-37.0) g/dL RDW 17.2 H (11.5-15.5) % Plt Count 284 (150-450) k/uL Neutrophils % (Manual) 78 % Lymphocytes % (Manual) 10 % Monocytes % (Manual) 8 % Eosinophils % (Manual) 4 % Neutrophils # (Manual) 6.24 (1.3-7.7) k/uL Lymphocytes # (Manual) 0.80 L (1.0-4.8) k/uL Monocytes # (Manual) 0.64 (0-1.0) k/uL Eosinophils # (Manual) 0.32 (0-0.7) k/uL Nucleated RBCs 0 (0-0) /100 WBC Large Platelets Present Polychromasia Present Hypochromasia Marked Poikilocytosis Slight Anisocytosis Slight Microcytosis Slight PT (9.0-12.0) sec INR (<1.2) APTT (22.0-30.0) sec Sample Site ABG pH (7.35-7.45) ABG pCO2 (35-45) mmHg ABG pO2 (83-108) mmHg ABG HCO3 (21-25) mmol/L ABG Total CO2 (19-24) mmol/L ABG O2 Saturation (94-97) % ABG Base Excess mmol/L Scott Test FiO2 % Sodium 144 (137-145) mmol/L Potassium 4.3 (3.5-5.1) mmol/L Chloride 94 L (98-107) mmol/L Carbon Dioxide 42 H* (22-30) mmol/L Anion Gap 8 mmol/L BUN 78 H (9-20) mg/dL Creatinine 2.34 H (0.66-1.25) mg/dL Est GFR (CKD-EPI)AfAm 34 (>60 ml/min/1.73 sqM) Est GFR (CKD-EPI)NonAf 29 (>60 ml/min/1.73 sqM) Glucose 80 (74-99) mg/dL Calcium 9.4 (8.4-10.2) mg/dL Magnesium 2.4 H (1.6-2.3) mg/dL Total Bilirubin 0.8 (0.2-1.3) mg/dL AST 29 (17-59) U/L ALT 21 (4-49) U/L Alkaline Phosphatase 81 (38-126) U/L Troponin I (0.000-0.034) ng/mL NT-Pro-B Natriuret Pep 2980 pg/mL Total Protein 6.8 (6.3-8.2) g/dL Albumin 3.5 (3.5-5.0) g/dL 11/17/19 11/17/19 11/17/19 Range/Units 13:18 13:18 13:52 WBC (3.8-10.6) k/uL RBC (4.30-5.90) m/uL Hgb (13.0-17.5) gm/dL Hct (39.0-53.0) % MCV (80.0-100.0) fL MCH (25.0-35.0) pg MCHC (31.0-37.0) g/dL RDW (11.5-15.5) % Plt Count (150-450) k/uL Neutrophils % (Manual) % Lymphocytes % (Manual) % Monocytes % (Manual) % Eosinophils % (Manual) % Neutrophils # (Manual) (1.3-7.7) k/uL Lymphocytes # (Manual) (1.0-4.8) k/uL Monocytes # (Manual) (0-1.0) k/uL Eosinophils # (Manual) (0-0.7) k/uL Nucleated RBCs (0-0) /100 WBC Large Platelets Polychromasia Hypochromasia Poikilocytosis Anisocytosis Microcytosis PT 13.4 H (9.0-12.0) sec INR 1.3 H (<1.2) APTT 38.0 H (22.0-30.0) sec Sample Site Left Radial ABG pH 7.34 L (7.35-7.45) ABG pCO2 83 H* (35-45) mmHg ABG pO2 73 L (83-108) mmHg ABG HCO3 45 H* (21-25) mmol/L ABG Total CO2 48 H (19-24) mmol/L ABG O2 Saturation 91.5 L (94-97) % ABG Base Excess 19.4 mmol/L Scott Test Yes FiO2 28 % Sodium (137-145) mmol/L Potassium (3.5-5.1) mmol/L Chloride (98-107) mmol/L Carbon Dioxide (22-30) mmol/L Anion Gap mmol/L BUN (9-20) mg/dL Creatinine (0.66-1.25) mg/dL Est GFR (CKD-EPI)AfAm (>60 ml/min/1.73 sqM) Est GFR (CKD-EPI)NonAf (>60 ml/min/1.73 sqM) Glucose (74-99) mg/dL Calcium (8.4-10.2) mg/dL Magnesium (1.6-2.3) mg/dL Total Bilirubin (0.2-1.3) mg/dL AST (17-59) U/L ALT (4-49) U/L Alkaline Phosphatase (38-126) U/L Troponin I 0.065 H* (0.000-0.034) ng/mL NT-Pro-B Natriuret Pep pg/mL Total Protein (6.3-8.2) g/dL Albumin (3.5-5.0) g/dL Disposition Clinical Impression: Anemia, Pulmonary edema, Hypercapnia, Elevated troponin, Chronic renal failure Disposition: ADMITTED IP TO THIS HOSP Is patient prescribed a controlled substance at d/c from ED?: No Time of Disposition: 15:29
[2019-11-17 13:49] LABS: Anisocytosis Slight; HGB 9.5 gm/dL (13.0-17.5); Hypochromasia Marked; MCH 23.9 pg (25.0-35.0); MCHC 29.8 g/dL (31.0-37.0); MCV 80.4 fL (80.0-100.0); Mean Platelet Volume 8.7; Microcytosis Slight; Platelet Count 284 k/uL (150-450); Poikilocytosis Slight; RBC 3.99 m/uL (4.30-5.90); RDW 17.2 % (11.5-15.5)
--- NOTE | 2019-11-17 13:49 | XR ---
EXAMINATION TYPE: XR chest 2V DATE OF EXAM: 11/17/2019 COMPARISON: 08/06/2019 TECHNIQUE: PA and lateral views submitted. HISTORY: Difficulty breathing FINDINGS: The lungs are clear and there is no pneumothorax, pleural effusion, or focal pneumonia. There is an interstitial pattern and cardiomegaly. Subsegmental changes at both lung bases. Degenerative change of the spine. IMPRESSION: 1. Interstitial pattern with by basilar subsegmental atelectasis. Heart is enlarged. Correlate for ve nous congestion or interstitial pneumonia, pneumonitis.
[2019-11-17 13:51] LABS: INR 1.3 (<1.2); Prothrombin Time 13.4 sec (9.0-12.0)
[2019-11-17 14:01] LABS: Albumin 3.5 g/dL (3.5-5.0); Calcium 9.4 mg/dL (8.4-10.2); Magnesium 2.4 mg/dL (1.6-2.3); Potassium 4.3 mmol/L (3.5-5.1); Total Bilirubin 0.8 mg/dL (0.2-1.3); Total Protein 6.8 g/dL (6.3-8.2)
[2019-11-17 14:04] LABS: ABG Base Excess 19.4 mmol/L; ABG Oxygen Saturation 91.5 % (94-97); ABG PH 7.34 (7.35-7.45); ABG PO2 73 mmHg (83-108); ABG TCO2 48 mmol/L (19-24); Allen Test Performed? Yes
[2019-11-17 14:11] LABS: ABG PCO2 83 mmHg (35-45)
[2019-11-17 14:12] LABS: ABG HCO3 45 mmol/L (21-25)
[2019-11-17 14:33] LABS: Eosinophils # (M) 0.32 k/uL (0-0.7); Monocytes # (M) 0.64 k/uL (0-1.0); Neutrophils # (M) 6.24 k/uL (1.3-7.7); Neutrophils % (M) 78 %; Nucleated Red Blood Cells 0 /100 WBC (0-0); Polychromasia Present; Total Cells Counted 100
[2019-11-17 14:34] LABS: Large Platelets Present
[2019-11-17] MEDS ORDERED: FUROSEMIDE 10 MG/ML 10 ML VIAL IV STA (15:29)
[2019-11-17] MEDS ORDERED: ACETAMINOPHEN TAB 500 MG TAB PO STA (17:09)
[2019-11-17] MEDS ORDERED: NALOXONE 0.4 MG/ML 1 ML VIAL IV PRN (19:35)
[2019-11-17 20:51] LABS: Glucose,Whole Blood 95 mg/dL (75-99)
[2019-11-17] MEDS: FUROSEMIDE 10 MG/ML 10 ML VIAL IV SCH (23:22)
[2019-11-18 06:40] LABS: Glucose,Whole Blood 110 mg/dL (75-99)
[2019-11-18] MEDS: FUROSEMIDE 10 MG/ML 10 ML VIAL IV SCH ×2 (08:55→17:30)
[2019-11-18 11:33] LABS: Glucose,Whole Blood 110 mg/dL (75-99)
[2019-11-18] MEDS: SYMBICORT 80-4.5 MCG INHALER INHALATION SCH ×2 (11:55→20:26)
[2019-11-18] MEDS: ALLOPURINOL 100 MG TAB PO SCH ×2 (13:07→20:53)
[2019-11-18] MEDS: ASPIRIN 81 MG PO SCH (13:07)
[2019-11-18] MEDS: clonazePAM 1 MG TAB PO SCH ×2 (13:08→20:53)
[2019-11-18] MEDS: DABIGATRAN 150 MG CAP PO SCH ×2 (13:08→21:30)
[2019-11-18] MEDS: PANTOPRAZOLE 40 MG TABLET PO SCH ×2 (13:09→17:30)
[2019-11-18] MEDS: SPIRONOLACTONE 25 MG TAB PO SCH (13:09)
[2019-11-18] MEDS: PREGABALIN 100 MG CAP PO SCH ×2 (13:09→20:53)
[2019-11-18] MEDS: HYDROcodone/APAP 7.5-325MG 1 EACH TAB PO PRN ×2 (13:11→20:53)
[2019-11-18] MEDS: NYSTATIN 100,000UNIT/GM CREAM 30 GM TUBE TOPICAL SCH ×2 (13:12→20:57)
[2019-11-18] MEDS: CALCIUM CARBONATE 500 MG CHEWABLE PO SCH (13:33)
[2019-11-18] MEDS: glipiZIDE 5 MG TAB PO SCH (13:34)
[2019-11-18] MEDS: METOPROLOL TARTRATE 50 MG TAB PO SCH (13:34)
[2019-11-18 16:41] LABS: Glucose,Whole Blood 87 mg/dL (75-99)
[2019-11-18 20:01] LABS: Glucose,Whole Blood 88 mg/dL (75-99)
--- NOTE | 2019-11-18 20:36 | P.HPIM ---
History of Present Illness H&P Date: 11/18/19 Chief Complaint: Easily winded History of presenting complaint: This is a 58-year-old patient who follows with visiting physicians Dr. Aramis Saleh. extensive medical history. Chronic stable medical conditions include atrial fibrillation, COPD, diabetes, GERD, hypertension, hyperlipidemia, osteoarthritis, obstructive sleep apnea, bilateral neuropathy, CHF with EF of 6 0-65%, atrial fibrillation. Patient normally uses a cane around the house.. Lives alone. Patient presents with progressive increasing edema. No fever no chills. Getting is the short winded. Orthopneic. Slight cough. Patient was here in August 2019. Was treated with a Bumex drip. There is tobacco 30 L on that admission. Review of systems: GEN.: Tired EYES: None HEENT: None NECK: None RESPIRATORY: As above CARDIOVASCULAR: As above GASTROINTESTINAL: None GENITOURINARY: None MUSCULOSKELETAL: None LYMPHATICS: None HEMATOLOGICAL: None PSYCHIATRY: Slightly anxious NEUROLOGICAL: Peripheral neuropathy Social history: Lives alone. Has a cane. Also as electric wheelchair. Patient smoked for about 8 years stopped in 1999. Alcohol rarely. Did use marijuana. Physical examination: VITAL SIGNS: Afebrile, 81, 20, 11 3/80, 95% on 2 L GENERAL: BMI 57.3, propped up in bed, tired short of breath EYES: Pupils equal. Conjunctiva normal. HEENT: External appearance of nose and ears normal, oral cavity grossly normal. NECK: Short, thick, JVD unable to assess; masses not palpable. HEART: Distant heart sounds,; edema present, but pendular lower abdomen. LUNGS: Respiratory rate increased, distance breath sounds. ABDOMEN: Soft, large some evidence of fungal infection in the groin, nontender, liver spleen not palpable, no masses palpable. PSYCH: Alert and oriented x3; mood and affect normal. NEUROLOGICAL: Cranial nerves grossly intact; no facial asymmetry, power and sensation are decreased distally. LYMPHATICS: No lymph nodes palpable in the axilla and neck DERMATOLOGICAL: Evidence of flaky skin and venous dermatitis on the lower extremity INVESTIGATIONS, reviewed in the clinical context: White count 8 hemoglobin 9.5 platelets 284 Potassium 4.3 bicarb 42 bun 78 creatinine 2.34 Troponin I 0.065 proBNP 2980 Patient's labs in August 2019 was bun of 56 creatinine 2.36 Chest x-ray film personally reviewed by me-cardiomegaly, pulmonary edema, fluid in the fissure 2-D echocardiogram from January 2019-EF 60-65% with wall motion abnormality EKG tracing personally reviewed by me-atrial fibrillation, rate controlled Assessment: -Acute on chronic congestive heart failure exacerbation from diastolic dysfunction EF 60-65% -Persistent atrial fibrillation rate controlled on presentation -Chronic kidney disease stage III probably nephrosclerosis -Morbid obesity BMI 64.3 -COPD -Diabetes mellitus type 2, on oral hypoglycemic -GERD -Hyperlipidemia -Essential hypertension -Chronic medical debility -Obstructive sleep apnea -Diabetic peripheral neuropathy -Stasis dermatitis, bilateral lower extremity Plan: Start the patient on Bumex drip 1 mg an hour. Other medications are to continue. Follow I's closely. Care was discussed with the patient. Questions were answered. Follow Accu-Cheks. Patient not on anticoagulation because prior bleeding expect the patient to the hospital for more than 2 nights. Past Medical History Past Medical History: Atrial Fibrillation, Heart Failure, COPD, Diabetes Mellitus, GERD/Reflux, Hyperlipidemia, Hypertension, Neurologic Disorder, Osteoarthritis (OA), Sleep Apnea/CPAP/BIPAP Additional Past Medical History / Comment(s): NIDDM, bilateral lower leg and feet neuropathy, gout-travels everywhere per pt History of Any Multi-Drug Resistant Organisms: MRSA Date of last positivie culture/infection: 2005 or 2007 per pt-tx while pt lived in [place] MDRO Source:: Low back Past Surgical History: Adenoidectomy, Tonsillectomy Additional Past Surgical History / Comment(s): 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 Past Anesthesia/Blood Transfusion Reactions: No Reported Reaction Past Psychological History: No Psychological Hx Reported, Anxiety Additional Psychological History / Comment(s): Pt resides alone. He uses a cane at times but uses a electric wheelchair more often. He drives. Smoking Status: Former smoker Past Alcohol Use History: Rare Additional Past Alcohol Use History / Comment(s): Pt started smoking in 1971 and quit in 1999. He was a pack and a half to two ppd smoker. Past Drug Use History: Marijuana - Past Family History Father Family Medical History: Coronary Artery Disease (CAD), Diabetes Mellitus Additional Family Medical History / Comment(s): Father had heart disease. He at age 74 of possible a [facility]-pt not sure. Mother Family Medical History: Congestive Heart Failure (CHF), COPD, Coronary Artery Disease (CAD) Additional Family Medical History / Comment(s): Mother had heart problems. She at age 72 yrs. She had osteoporosis. Brother(s) Family Medical History: No Reported History Sister(s) Family Medical History: Diabetes Mellitus Daughter(s) Family Medical History: No Reported History Son(s) Family Medical History: No Reported History Medications and Allergies Home Medications Medication Instructions Recorded Confirmed Type Allopurinol [Zyloprim] 100 mg PO BID 02/10/16 11/17/19 History Fluticasone/Salmeterol [Advair 1 puff INHALATION RT-BID 02/10/16 11/17/19 History 250-50 Diskus] Simvastatin [Zocor] 20 mg PO HS 02/10/16 11/17/19 History Aspirin [Adult Low Dose Aspirin EC] 81 mg PO DAILY 02/03/19 11/17/19 History Omeprazole [PriLOSEC] 40 mg PO BID 08/02/19 11/17/19 History Spironolactone 25 mg PO DAILY 08/02/19 11/17/19 History Potassium Chloride ER [K-Dur 20] 20 meq PO BID tab.er.prt 08/16/19 11/17/19 Rx Albuterol Inhaler [Ventolin Hfa 2 puff INHALATION RT-Q6H PRN 11/17/19 11/17/19 History Inhaler] Calcium Carbonate 500 mg PO DAILY 11/17/19 11/17/19 History Dabigatran [Pradaxa] 150 mg PO BID 11/17/19 11/17/19 History Furosemide [Lasix] 80 mg PO BID 11/17/19 11/17/19 History HYDROcodone/APAP 7.5-325MG [[place] 1 tab PO TID PRN 11/17/19 11/17/19 History 7.5-325] Metoprolol Tartrate [Lopressor] 150 mg PO DAILY 11/17/19 11/17/19 History Nystatin 100,000Unit/gm Cream 1 applic TOPICAL BID 11/17/19 11/17/19 History [Mycostatin Cream] Pregabalin [Lyrica] 100 mg PO BID 11/17/19 11/17/19 History clonazePAM [KlonoPIN] 1 mg PO BID 11/17/19 11/17/19 History glipiZIDE [Glucotrol] 5 mg PO DAILY 11/17/19 11/17/19 History traZODone HCL [Desyrel] 50 mg PO HS 11/17/19 11/17/19 History Allergies Allergy/AdvReac Type Severity Reaction Status Date / Time No Known Allergies Allergy Verified 11/17/19 14:40 Physical Exam Vitals: Vital Signs Temp Pulse Pulse Resp BP BP Pulse Ox 11/18/19 08:00 104 H 16 98 11/18/19 03:11 97.9 F 88 18 160/92 99 11/17/19 23:58 82 18 128/78 93 L 11/17/19 20:34 98.2 F 87 21 140/78 98 11/17/19 19:49 98 F 80 18 126/82 96 11/17/19 19:40 98.2 F 94 23 130/87 96 11/17/19 18:30 94 26 H 98 11/17/19 17:19 116/84 11/17/19 17:17 93 20 96 11/17/19 14:30 79 20 110/70 95 11/17/19 14:00 89 16 94 L 11/17/19 13:30 81 20 113/80 95 11/17/19 13:19 98 20 113/80 98 11/17/19 13:18 22 Intake and Output 11/17/19 11/18/19 11/18/19 22:59 06:59 14:59 Output Total 575 Balance -575 Output: Urine 575 Other: # Voids 1 Weight 199.581 kg 197.1 kg Results CBC & Chem 7: 11/17/19 13:18 11/17/19 13:18 Labs: Abnormal Lab Results - Last 24 Hours (Table) 11/17/19 11/17/19 11/17/19 Range/Units 13:18 13:18 13:18 RBC 3.99 L (4.30-5.90) m/uL Hgb 9.5 L (13.0-17.5) gm/dL Hct 32.0 L (39.0-53.0) % MCH 23.9 L (25.0-35.0) pg MCHC 29.8 L (31.0-37.0) g/dL RDW 17.2 H (11.5-15.5) % Lymphocytes # (Manual) 0.80 L (1.0-4.8) k/uL PT 13.4 H (9.0-12.0) sec INR 1.3 H (<1.2) APTT 38.0 H (22.0-30.0) sec ABG pH (7.35-7.45) ABG pCO2 (35-45) mmHg ABG pO2 (83-108) mmHg ABG HCO3 (21-25) mmol/L ABG Total CO2 (19-24) mmol/L ABG O2 Saturation (94-97) % Chloride 94 L (98-107) mmol/L Carbon Dioxide 42 H* (22-30) mmol/L BUN 78 H (9-20) mg/dL Creatinine 2.34 H (0.66-1.25) mg/dL POC Glucose (mg/dL) (75-99) mg/dL Magnesium 2.4 H (1.6-2.3) mg/dL Troponin I (0.000-0.034) ng/mL 11/17/19 11/17/19 11/18/19 Range/Units 13:18 13:52 06:27 RBC (4.30-5.90) m/uL Hgb (13.0-17.5) gm/dL Hct (39.0-53.0) % MCH (25.0-35.0) pg MCHC (31.0-37.0) g/dL RDW (11.5-15.5) % Lymphocytes # (Manual) (1.0-4.8) k/uL PT (9.0-12.0) sec INR (<1.2) APTT (22.0-30.0) sec ABG pH 7.34 L (7.35-7.45) ABG pCO2 83 H* (35-45) mmHg ABG pO2 73 L (83-108) mmHg ABG HCO3 45 H* (21-25) mmol/L ABG Total CO2 48 H (19-24) mmol/L ABG O2 Saturation 91.5 L (94-97) % Chloride (98-107) mmol/L Carbon Dioxide (22-30) mmol/L BUN (9-20) mg/dL Creatinine (0.66-1.25) mg/dL POC Glucose (mg/dL) 110 H (75-99) mg/dL Magnesium (1.6-2.3) mg/dL Troponin I 0.065 H* (0.000-0.034) ng/mL Thrombosis Risk Factor Assmnt - Choose All That Apply Any of the Below Risk Factors Present?: Yes Each Factor Represents 1 point: Abnormal pulmonary function (COPD), Age 41-60 years, Obesity (BMI >25), Swollen legs (current) Other Risk Factors: Yes Each Risk Factor Represents 3 Points: History of DVT/PE Thrombosis Risk Factor Assessment Total Risk Factor Score: 7 Thrombosis Risk Factor Assessment Level: High Risk
[2019-11-18] MEDS: ATORVASTATIN 10 MG TAB PO SCH (20:53)
[2019-11-18] MEDS: traZODone HCL 50 MG TAB PO SCH (20:53)
[2019-11-18] MEDS: BUMETANIDE 10 MG in DEXTROSE 5% IN WATER 60 ML IV SCH ×2 (21:13)
[2019-11-19] MEDS: BUMETANIDE 10 MG in DEXTROSE 5% IN WATER 60 ML IV SCH ×4 (03:51→17:07)
[2019-11-19] MEDS: PANTOPRAZOLE 40 MG TABLET PO SCH ×2 (05:52→17:11)
[2019-11-19 06:18] LABS: Glucose,Whole Blood 110 mg/dL (75-99)
[2019-11-19 06:46] LABS: Potassium 4.1 mmol/L (3.5-5.1)
[2019-11-19] MEDS: SYMBICORT 80-4.5 MCG INHALER INHALATION SCH ×2 (08:27→20:31)
[2019-11-19] MEDS: DABIGATRAN 150 MG CAP PO SCH ×2 (08:50→22:42)
[2019-11-19] MEDS: CALCIUM CARBONATE 500 MG CHEWABLE PO SCH (08:50)
[2019-11-19] MEDS: SPIRONOLACTONE 25 MG TAB PO SCH (08:50)
[2019-11-19] MEDS: METOPROLOL TARTRATE 50 MG TAB PO SCH (08:50)
[2019-11-19] MEDS: clonazePAM 1 MG TAB PO SCH ×2 (08:50→22:43)
[2019-11-19] MEDS: PREGABALIN 100 MG CAP PO SCH ×2 (08:51→22:43)
[2019-11-19] MEDS: ASPIRIN 81 MG PO SCH (08:51)
[2019-11-19] MEDS: glipiZIDE 5 MG TAB PO SCH (08:51)
[2019-11-19] MEDS: ALLOPURINOL 100 MG TAB PO SCH ×2 (08:51→22:43)
[2019-11-19] MEDS: NYSTATIN 100,000UNIT/GM CREAM 30 GM TUBE TOPICAL SCH ×2 (08:51→22:43)
--- NOTE | 2019-11-19 12:13 | P.NPCON ---
History of Present Illness - Reason for Consult Consult date: 11/19/19 acute renal failure - Chief Complaint Worsening edema with chronic kidney disease - History of Present Illness This is a 59-year-old male seen in consultation because of acute kidney injury and chronic kidney disease He came in because of worsening edema. His medication list she recently changed he was switched from furosemide to torsemide and his metolazone was increased from every other day to every day for 5 days. He started to have less edema. But then his diuretics were reduced again and with recurrence of edema and worsening of shortness of breath He is creatinine has been up in the 2.3 range and he has mild proteinuria. He is known with diabetes for approximately 15 years, with diabetic neuropathy but no retinopathy. No urine protein quantification has been performed. It has not followed up with our office. He was seen here during his last admission. He is known with obstructive sleep apnea on home oxygen, atrial fibrillation, supposedly had a cardiac catheterization by Dr. Garrido without any coronary artery disease supposedly. No history of taking any nonsteroidals Bactrim. No nausea vomiting diarrhea. He does have some symptoms suggestive prostatism Past Medical History Past Medical History: Atrial Fibrillation, Heart Failure, COPD, Diabetes Mellitus, GERD/Reflux, Hyperlipidemia, Hypertension, Neurologic Disorder, O steoarthritis (OA), Sleep Apnea/CPAP/BIPAP Additional Past Medical History / Comment(s): NIDDM, bilateral lower leg and feet neuropathy, gout-travels everywhere per pt History of Any Multi-Drug Resistant Organisms: MRSA Date of last positivie culture/infection: 2005 or 2007 per pt-tx while pt lived in [place] MDRO Source:: Low back Past Surgical History: Adenoidectomy, Tonsillectomy Additional Past Surgical History / Comment(s): Pyloric stenosis when he was an , bilateral knee arthroscopies, 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 Past Anesthesia/Blood Transfusion Reactions: No Reported Reaction Past Psychological History: No Psychological Hx Reported, Anxiety Additional Psychological History / Comment(s): Pt resides alone. He uses a cane at times but uses a electric wheelchair more often. He drives. Smoking Status: Former smoker Past Alcohol Use History: Rare Additional Past Alcohol Use History / Comment(s): Pt started smoking in 1971 and quit in 1999. He was a pack and a half to two ppd smoker. Past Drug Use History: Marijuana - Past Family History Father Family Medical History: Coronary Artery Disease (CAD), Diabetes Mellitus Additional Family Medical History / Comment(s): Father had heart disease. He at age 74 of possible a [place]-pt not sure. Mother Family Medical History: Congestive Heart Failure (CHF), COPD, Coronary Artery Disease (CAD) Additional Family Medical History / Comment(s): Mother had heart problems. She at age 72 yrs. She had osteoporosis. Brother(s) Family Medical History: No Reported History Sister(s) Family Medical History: Diabetes Mellitus Daughter(s) Family Medical History: No Reported History Son(s) Family Medical History: No Reported History Medications and Allergies Home Medications Medication Instructions Recorded Confirmed Type Allopurinol [Zyloprim] 100 mg PO BID 02/10/16 11/17/19 History Fluticasone/Salmeterol [Advair 1 puff INHALATION RT-BID 02/10/16 11/17/19 History 250-50 Diskus] Simvastatin [Zocor] 20 mg PO HS 02/10/16 11/17/19 History Aspirin [Adult Low Dose Aspirin EC] 81 mg PO DAILY 02/03/19 11/17/19 History Omeprazole [PriLOSEC] 40 mg PO BID 08/02/19 11/17/19 History Spironolactone 25 mg PO DAILY 08/02/19 11/17/19 History Potassium Chloride ER [K-Dur 20] 20 meq PO BID tab.er.prt 08/16/19 11/17/19 Rx Albuterol Inhaler [Ventolin Hfa 2 puff INHALATION RT-Q6H PRN 11/17/19 11/17/19 History Inhaler] Calcium Carbonate 500 mg PO DAILY 11/17/19 11/17/19 History Dabigatran [Pradaxa] 150 mg PO BID 11/17/19 11/17/19 History Furosemide [Lasix] 80 mg PO BID 11/17/19 11/17/19 History HYDROcodone/APAP 7.5-325MG [[place] 1 tab PO TID PRN 11/17/19 11/17/19 History 7.5-325] Metoprolol Tartrate [Lopressor] 150 mg PO DAILY 11/17/19 11/17/19 History Nystatin 100,000Unit/gm Cream 1 applic TOPICAL BID 11/17/19 11/17/19 History [Mycostatin Cream] Pregabalin [Lyrica] 100 mg PO BID 11/17/19 11/17/19 History clonazePAM [KlonoPIN] 1 mg PO BID 11/17/19 11/17/19 History glipiZIDE [Glucotrol] 5 mg PO DAILY 11/17/19 11/17/19 History traZODone HCL [Desyrel] 50 mg PO HS 11/17/19 11/17/19 History Allergies Allergy/AdvReac Type Severity Reaction Status Date / Time No Known Allergies Allergy Verified 11/17/19 14:40 Physical Exam Vitals: Vital Signs Temp Pulse Resp BP Pulse Ox 11/19/19 11:33 16 11/19/19 08:00 109 H 16 99/58 90 L 11/19/19 04:00 97.9 F 95 18 128/82 97 11/19/19 03:08 18 11/19/19 00:00 98 18 132/72 96 11/18/19 20:00 98 F 111 H 18 144/75 95 11/18/19 16:00 16 Intake and Output 11/18/19 11/19/19 11/19/19 22:59 06:59 14:59 Intake Total 360 66.333 480 Output Total 650 1200 1550 Balance -290 -1133.667 -1070 Intake: Intake, IV Titration 66.333 Amount Bumetanide 10 mg In 66.333 Dextrose 5% in Water 60 ml @ 1 MG/HR 10 mls/hr IV .Q10H [facility] Rx#:[id number] Oral 360 480 Output: Urine 650 1200 1550 Other: # Voids 1 3 Weight 197.4 kg On examination is awake alert oriented comfortable. Is able to walk to the bathroom HEENT exam reveals increased JVD about 8 cm above the sternal angle no lymph nodes neck is supple no facial asymmetry Lungs are clear to auscultation with diminished air entry. No wheezing but an occasional coarse crackle probably is noted at the bases Heart sounds are unremarkable for any murmur rub gallop he is in atrial fibrillation Abdomen is obese protuberant nontender Extremity exam was chronic stasis changes with thickened coarse skin with edema. Neurologically awake alert oriented Results - Lab Results Most recent lab results ABG pH 7.34 (7.35-7.45) L 11/17/19 13:52 ABG pCO2 83 mmHg (35-45) H* 11/17/19 13:52 ABG pO2 73 mmHg (83-108) L 11/17/19 13:52 ABG HCO3 45 mmol/L (21-25) H* 11/17/19 13:52 ABG O2 Saturation 91.5 % (94-97) L 11/17/19 13:52 Calcium 9.0 mg/dL (8.4-10.2) 11/19/19 05:34 Magnesium 2.4 mg/dL (1.6-2.3) H 11/17/19 13:18 11/17/19 13:18 11/19/19 05:34 Assessment and Plan Plan: Impression 1. Acute kidney injury from the prerenal congestive heart failure and cardiorenal syndrome and worsening edema requiring more diuretics. Creatinine went up from baseline of 2.34-2.59. 2. Chronic kidney disease. Baseline creatinine 2.3 dated 08/16/2019. Previous to that his creatinine was 1.8-1 02/03/2019 and 1.17 on 04/14/2018. Urinalysis shows 1+ proteinuria dated 08/02/2019. No random protein to creatinine ratio available. No ultrasound unavailable 3. Chronic congestive heart failure. And worsening shortness of breath. Ejection fraction is 50-55% with the right ventricular hypertension, right ventricle pressure is 47. 4. ABGs shows pH of 7.34 pCO2 is 83 and pO2 is 73 segs suggestive of obstructive sleep apnea and hypercapnia causing respiratory acidosis primary. The expected metabolic compensation with alkalosis should have increase the bicarb by 15 so bicarb should have been 40 and is 42-44 suggestive of a primary additional metabolic alkalosis from diuretics. Recommendation 1. Check postvoid residual 2. Check orthostatic changes to see if he is intravascularly volume depleted. 3. Check urine protein to creatinine ratio. 4. Currently on Aldactone will continue this.
[2019-11-19 12:28] LABS: Glucose,Whole Blood 90 mg/dL (75-99)
--- NOTE | 2019-11-19 12:51 | P.CRDCN ---
History of Present Illness Consult date: 11/19/19 Chief complaint: Increasing shortness of breath History of present illness: This is a pleasant 59-year-old gentleman with an extensive medical history consistent off morbid obesity, chronic diastolic congestive heart failure, long- standing persistent atrial fibrillation on oral anticoagulation, diabetes, hypertension, dyslipidemia, chronic lower extremities edema, presented to the hospital complaining of increasing in the shortness of breath. The patient stated that for the last several weeks, he has been experiencing increasing in the shortness of breath. He has been watching his weight and he stated that he gained about 40 pounds within the last few weeks. He did have also increasing in the lower extremities edema. No symptoms of chest pain or chest discomfort, dizziness, heart racing, or syncope. The patient stated that he was compliant with all of his medications including his diuretics. Regarding diet, the patient stated that he was not quite sure about how compliant with the diet. When he presented to the hospital he was diagnosed with overt congestive heart failure and he was started on Bumex drip. The creatinine is elevated but he does have chronic kidney disease. Nephrology is on the case. Chest x-ray showe d findings consistent with CHF. The BNP came in to be slightly elevated. The EKG showed atrial fibrillation with diffuse nonspecific ST and T wave abnormalities. He underwent an echocardiogram in July 2019 and that revealed normal LV function with evidence of moderate mitral regurgitation, m oderate tricuspid regurgitation, and moderate pulmonary hypertension. On examination today he is clearly in heart failure with evidence of diminished breathing sounds bilaterally and severe bilateral lower extremities edema as well as chronic skin changes. Past Medical History Past Medical History: Atrial Fibrillation, Heart Failure, COPD, Diabetes Mellitus, GERD/Reflux, Hyperlipidemia, Hypertension, Neurologic Disorder, Osteoarthritis (OA), Sleep Apnea/CPAP/BIPAP Additional Past Medical History / Comment(s): NIDDM, bilateral lower leg and feet neuropathy, gout-travels everywhere per pt History of Any Multi-Drug Resistant Organisms: MRSA Date of last positivie culture/infection: 2005 or 2007 per pt-tx while pt lived in [place] MDRO Source:: Low back Past Surgical History: Adenoidectomy, Tonsillectomy Additional Past Surgical History / Comment(s): Pyloric stenosis when he was an , bilateral knee arthroscopies, 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 Past Anesthesia/Blood Transfusion Reactions: No Reported Reaction Past Psychological History: No Psychological Hx Reported, Anxiety Additional Psychological History / Comment(s): Pt resides alone. He uses a cane at times but uses a electric wheelchair more often. He drives. Smoking Status: Former smoker Past Alcohol Use History: Rare Additional Past Alcohol Use History / Comment(s): Pt started smoking in 1971 and quit in 1999. He was a pack and a half to two ppd smoker. Past Drug Use History: Marijuana - Past Family History Father Family Medical History: Coronary Artery Disease (CAD), Diabetes Mellitus Additional Family Medical History / Comment(s): Father had heart disease. He at age 74 of possible a CA-pt not sure. Mother Family Medical History: Congestive Heart Failure (CHF), COPD, Coronary Artery Disease (CAD) Additional Family Medical History / Comment(s): Mother had heart problems. She at age 72 yrs. She had osteoporosis. Brother(s) Family Medical History: No Reported History Sister(s) Family Medical History: Diabetes Mellitus Daughter(s) Family Medical History: No Reported History Son(s) Family Medical History: No Reported History Medications and Allergies Home Medications Medication Instructions Recorded Confirmed Type Allopurinol [Zyloprim] 100 mg PO BID 02/10/16 11/17/19 History Fluticasone/Salmeterol [Advair 1 puff INHALATION RT-BID 02/10/16 11/17/19 History 250-50 Diskus] Simvastatin [Zocor] 20 mg PO HS 02/10/16 11/17/19 History Aspirin [Adult Low Dose Aspirin EC] 81 mg PO DAILY 02/03/19 11/17/19 History Omeprazole [PriLOSEC] 40 mg PO BID 08/02/19 11/17/19 History Spironolactone 25 mg PO DAILY 08/02/19 11/17/19 History Potassium Chloride ER [K-Dur 20] 20 meq PO BID tab.er.prt 08/16/19 11/17/19 Rx Albuterol Inhaler [Ventolin Hfa 2 puff INHALATION RT-Q6H PRN 11/17/19 11/17/19 History Inhaler] Calcium Carbonate 500 mg PO DAILY 11/17/19 11/17/19 History Dabigatran [Pradaxa] 150 mg PO BID 11/17/19 11/17/19 History Furosemide [Lasix] 80 mg PO BID 11/17/19 11/17/19 History HYDROcodone/APAP 7.5-325MG [[place] 1 tab PO TID PRN 11/17/19 11/17/19 History 7.5-325] Metoprolol Tartrate [Lopressor] 150 mg PO DAILY 11/17/19 11/17/19 History Nystatin 100,000Unit/gm Cream 1 applic TOPICAL BID 11/17/19 11/17/19 History [Mycostatin Cream] Pregabalin [Lyrica] 100 mg PO BID 11/17/19 11/17/19 History clonazePAM [KlonoPIN] 1 mg PO BID 11/17/19 11/17/19 History glipiZIDE [Glucotrol] 5 mg PO DAILY 11/17/19 11/17/19 History traZODone HCL [Desyrel] 50 mg PO HS 11/17/19 11/17/19 History Allergies Allergy/AdvReac Type Severity Reaction Status Date / Time No Known Allergies Allergy Verified 11/17/19 14:40 Physical Exam Vitals: Vital Signs Temp Pulse Pulse Pulse Resp BP BP 11/19/19 12:00 110 H 111 H 16 96/82 11/19/19 11:33 16 11/19/19 08:00 109 H 16 99/58 11/19/19 04:00 97.9 F 95 18 128/82 11/19/19 03:08 18 11/19/19 00:00 98 18 132/72 11/18/19 20:00 98 F 111 H 18 144/75 11/18/19 16:00 16 BP Pulse Ox 11/19/19 12:00 94/82 90 L 11/19/19 11:33 11/19/19 08:00 90 L 11/19/19 04:00 97 11/19/19 03:08 11/19/19 00:00 96 11/18/19 20:00 95 11/18/19 16:00 Intake and Output 11/18/19 11/19/19 11/19/19 22:59 06:59 14:59 Intake Total 360 66.333 480 Output Total 650 1200 1550 Balance -290 -1663.661 -3233 Intake: Intake, IV Titration 66.333 Amount Bumetanide 10 mg In 66.333 Dextrose 5% in Water 60 ml @ 1 MG/HR 10 mls/hr IV .Q10H NIKA Rx#:[id number] Oral 360 480 Output: Urine 650 1200 1550 Other: # Voids 1 3 Weight 197.4 kg - Constitutional General appearance: no acute distress - Respiratory Respiratory: bilateral: diminished - Cardiovascular Rhythm: irregularly irregular Heart sounds: normal: S1, S2 Results 11/17/19 13:18 11/19/19 05:34 Comprehensive Metabolic Panel 11/19/19 Range/Units 05:34 Sodium 140 (137-145) mmol/L Potassium 4.1 (3.5-5.1) mmol/L Chloride 88 L (98-107) mmol/L Carbon Dioxide 44 H* (22-30) mmol/L BUN 85 H (9-20) mg/dL Creatinine 2.59 H (0.66-1.25) mg/dL Glucose 92 (74-99) mg/dL Calcium 9.0 (8.4-10.2) mg/dL Current Medications Generic Name Dose Route Start Last Admin Trade Name Freq PRN Reason Stop Dose Admin Hydrocodone Bitart/Acetaminophen 1 each 11/18/19 10:56 11/18/19 20:53 [place] 7.5-325 PO 1 each TID PRN Administration MODERATE Pain Allopurinol 100 mg 11/18/19 11:00 11/19/19 08:51 Zyloprim PO 100 mg BID NIKA Administration Aspirin 81 mg 11/18/19 11:00 11/19/19 08:51 Aspirin PO 81 mg DAILY NIKA Administration Atorvastatin Calcium 10 mg 11/18/19 21:00 11/18/19 20:53 Lipitor PO 10 mg HS NIKA Administration Budesonide/Formoterol Fumarate 2 puff 11/18/19 10:56 11/19/19 08:27 Symbicort 80-4.5 Mcg Inhaler INHALATION 2 puff RT-BID NIKA Administration Calcium Carbonate/Glycine 500 mg 11/18/19 11:00 11/19/19 08:50 Tums PO 500 mg DAILY NIKA Administration Clonazepam 1 mg 11/18/19 11:00 11/19/19 08:50 Klonopin PO 1 mg BID NIKA Administration Dabigatran 150 mg 11/18/19 11:00 11/19/19 08:50 Pradaxa PO 150 mg BID NIKA Administration Glipizide 5 mg 11/18/19 11:00 11/19/19 08:51 Glucotrol PO 5 mg DAILY NIKA Administration Bumetanide 10 mg/ Dextrose/ 100 mls @ 10 mls/hr 11/18/19 21:00 11/19/19 03:51 Water IV 1 mg/hr .Q10H NIKA 10 mls/hr Administration 1 MG/HR Metoprolol Tartrate 150 mg 11/18/19 11:00 11/19/19 08:50 Lopressor PO 150 mg DAILY NIKA Administration Naloxone HCl 0.2 mg 11/17/19 19:35 Narcan IV Q2M PRN Opioid Reversal Nystatin 1 applic 11/18/19 11:00 11/19/19 08:51 Mycostatin Cream TOPICAL 1 applic BID NIKA Administration Pantoprazole Sodium 40 mg 11/18/19 11:15 11/19/19 05:52 Protonix PO 40 mg AC-BID NIKA Administration Pregabalin 100 mg 11/18/19 11:00 11/19/19 08:51 Lyrica PO 100 mg BID NIKA Administration Spironolactone 25 mg 11/18/19 11:00 11/19/19 08:50 Aldactone PO 25 mg DAILY NIKA Administration Trazodone HCl 50 mg 11/18/19 21:00 11/18/19 20:53 Desyrel PO 50 mg HS NIKA Administration Intake and Output 11/18/19 11/19/19 11/19/19 22:59 06:59 14:59 Intake Total 360 66.333 480 Output Total 650 1200 1550 Balance -290 -1133.667 -4430 Intake: Intake, IV Titration 66.333 Amount Bumetanide 10 mg In 66.333 Dextrose 5% in Water 60 ml @ 1 MG/HR 10 mls/hr IV .Q10H NIKA Rx#:[id number] Oral 360 480 Output: Urine 650 1200 1550 Other: # Voids 1 3 Weight 197.4 kg 11/17/19 13:18 11/19/19 05:34 Assessment and Plan Assessment: Assessment #1 congestive heart failure exacerbation secondary to diastole dysfunction #2 long-standing persistent atrial fibrillation on oral anticoagulation #3 morbid obesity #4 chronic kidney disease #5 multiple comorbid conditions Plan #1 continue IV diuretics #2 continue monitor the kidney function and electrolytes #3 nephrology is on the case #4 no need to repeat the echocardiogram in view of recent echo showing normal LV function #5 continue monitor the weight on daily basis #6 follow-up with the patient
[2019-11-19 16:53] LABS: Glucose,Whole Blood 84 mg/dL (75-99)
[2019-11-19 20:18] LABS: Glucose,Whole Blood 111 mg/dL (75-99)
--- NOTE | 2019-11-19 20:22 | P.PN ---
Progress Note - Text Progress Note Date: 11/19/19 Chief Complaint: Easily winded History of presenting complaint: This is a 58-year-old patient who follows with visiting physicians Dr. Aramis Saleh. extensive medical history. Chronic stable medical conditions include atrial fibrillation, COPD, diabetes, GERD, hypertension, hyperlipidemia, osteoarthritis, obstructive sleep apnea, bilateral neuropathy, CHF with EF of 60-65%, atrial fibrillation. Patient normally uses a cane around the house.. Lives alone. Patient presents with progressive increasing edema. No fever no chills. Getting is the short winded. Orthopneic. Slight cough. Patient was here in August 2019. Was treated with a Bumex drip. There is tobacco 30 L on that admission. Admitted with CHF exacerbation. Started on Bumex drip. Today-on Bumex drip. Over 3 L in negative fluid balance. Also fluid restriction. Tolerating diet. Tired. Review of systems: Was done for constitutional, cardiovascular, GI, pulmonary. relevant finding as above Active Medications Hydrocodone Bitart/Acetaminophen ([place] 7.5-325) 1 each PO TID PRN PRN Reason: MODERATE Pain Last Admin: 11/18/19 20:53 Dose: 1 each Documented by: Allopurinol (Zyloprim) 100 mg PO BID [facility] Last Admin: 11/19/19 08:51 Dose: 100 mg Documented by: Aspirin (Aspirin) 81 mg PO DAILY [facility] Last Admin: 11/19/19 08:51 Dose: 81 mg Documented by: Atorvastatin Calcium (Lipitor) 10 mg PO HS [facility] Last Admin: 11/18/19 20:53 Dose: 10 mg Documented by: Budesonide/Formoterol Fumarate (Symbicort 80-4.5 Mcg Inhaler) 2 puff INHALATION RT-BID [facility] Last Admin: 11/19/19 08:27 Dose: 2 puff Documented by: Calcium Carbonate/Glycine (Tums) 500 mg PO DAILY [facility] Last Admin: 11/19/19 08:50 Dose: 500 mg Documented by: Clonazepam (Klonopin) 1 mg PO BID [facility] Last Admin: 11/19/19 08:50 Dose: 1 mg Documented by: Dabigatran (Pradaxa) 150 mg PO BID [facility] Last Admin: 11/19/19 08:50 Dose: 150 mg Documented by: Glipizide (Glucotrol) 5 mg PO DAILY [facility] Last Admin: 11/19/19 08:51 Dose: 5 mg Documented by: Bumetanide 10 mg/ Dextrose/ (Water) 100 mls @ 10 mls/hr IV .Q10H [facility] Last Admin: 11/19/19 17:07 Dose: 1 mg/hr, 10 mls/hr Documented by: Metoprolol Tartrate (Lopressor) 150 mg PO DAILY [facility] Last Admin: 11/19/19 08:50 Dose: 150 mg Documented by: Naloxone HCl (Narcan) 0.2 mg IV Q2M PRN PRN Reason: Opioid Reversal Nystatin (Mycostatin Cream) 1 applic TOPICAL BID [facility] Last Admin: 11/19/19 08:51 Dose: 1 applic Documented by: Pantoprazole Sodium (Protonix) 40 mg PO AC-BID [facility] Last Admin: 11/19/19 17:11 Dose: 40 mg Documented by: Pregabalin (Lyrica) 100 mg PO BID [facility] Last Admin: 11/19/19 08:51 Dose: 100 mg Documented by: Spironolactone (Aldactone) 25 mg PO DAILY [facility] Last Admin: 11/19/19 08:50 Dose: 25 mg Documented by: Trazodone HCl (Desyrel) 50 mg PO HS [facility] Last Admin: 11/18/19 20:53 Dose: 50 mg Documented by: Physical examination: VITAL SIGNS: 16, 118, 117/67, 90% on 2 L GENERAL: Sitting at the edge of the bed, tired EYES: Pupils equal. Conjunctiva normal. HEENT: External appearance of nose and ears normal, oral cavity grossly normal. NECK: Short, thick, JVD unable to assess; masses not palpable. HEART: Distant heart sounds,; edema present, but pendular lower abdomen. LUNGS: Respiratory rate increased, distance breath sounds. ABDOMEN: Soft, large some evidence of fungal infection in the groin, nontender, liver spleen not palpable, no masses palpable. PSYCH: Alert and oriented x3; mood and affect normal. DERMATOLOGICAL: Evidence of flaky skin and venous dermatitis on the lower extremity INVESTIGATIONS, reviewed in the clinical context: Potassium 4.1 white count 44 bun 85 creatinine 2.59 Previous testing White count 8 hemoglobin 9.5 platelets 284 Potassium 4.3 bicarb 42 bun 78 creatinine 2.34 Troponin I 0.065 proBNP 2980 Patient's labs in August 2019 was bun of 56 creatinine 2.36 Chest x-ray film personally reviewed by me-cardiomegaly, pulmonary edema, fluid in the fissure 2-D echocardiogram from January 2019-EF 60-65% with wall motion abnormality EKG tracing personally reviewed by me-atrial fibrillation, rate controlled Assessment: -Acute on chronic congestive heart failure exacerbation from diastolic dysfunction EF 60-65%, slow to respond -Persistent atrial fibrillation rate controlled on presentation -Chronic kidney disease stage III probably nephrosclerosis -Morbid obesity BMI 64.3 -COPD -Diabetes mellitus type 2, on oral hypoglycemic -GERD -Hyperlipidemia -Essential hypertension -Chronic medical debility -Obstructive sleep apnea -Diabetic peripheral neuropathy -Stasis dermatitis, bilateral lower extremity Plan: Continue with Bumex drip. Follow I's and O's. Patient advised about fluid intake. Follow I's closely. Other medications to continue.
[2019-11-19] MEDS: ATORVASTATIN 10 MG TAB PO SCH (22:42)
[2019-11-19] MEDS: traZODone HCL 50 MG TAB PO SCH (22:42)
[2019-11-19] MEDS: HYDROcodone/APAP 7.5-325MG 1 EACH TAB PO PRN (22:52)
[2019-11-20 06:28] LABS: Glucose,Whole Blood 114 mg/dL (75-99)
[2019-11-20] MEDS: PANTOPRAZOLE 40 MG TABLET PO SCH ×2 (06:52→17:24)
[2019-11-20] MEDS: BUMETANIDE 10 MG in DEXTROSE 5% IN WATER 60 ML IV SCH ×2 (07:21)
[2019-11-20] MEDS: SPIRONOLACTONE 25 MG TAB PO SCH (08:34)
[2019-11-20] MEDS: clonazePAM 1 MG TAB PO SCH ×2 (08:34→22:47)
[2019-11-20] MEDS: DABIGATRAN 150 MG CAP PO SCH ×2 (08:34→22:47)
[2019-11-20] MEDS: METOPROLOL TARTRATE 50 MG TAB PO SCH (08:34)
[2019-11-20] MEDS: CALCIUM CARBONATE 500 MG CHEWABLE PO SCH (08:34)
[2019-11-20] MEDS: glipiZIDE 5 MG TAB PO SCH (08:34)
[2019-11-20] MEDS: PREGABALIN 100 MG CAP PO SCH ×2 (08:34→22:47)
[2019-11-20] MEDS: ALLOPURINOL 100 MG TAB PO SCH ×2 (08:34→22:47)
[2019-11-20] MEDS: ASPIRIN 81 MG PO SCH (08:35)
--- NOTE | 2019-11-20 09:24 | P.PN ---
Subjective Patient is seen in follow-up for acute kidney injury on chronic kidney disease. Edema improving. Weight trending down. Maintained on Bumex drip. Denies chest pain. Oral intake is good. Vital signs are stable. General: The patient appeared well nourished and normally developed. HEENT: Head exam is unremarkable. Neck is without jugular venous distension. LUNGS: Breath sounds decreased. HEART: Rate and Rhythm are regular. First and second heart sounds normal. No murmurs, rubs or gallops. ABDOMEN: Abdominal exam reveals normal bowel sounds. Obese. Soft. EXTREMITITES: 2+ edema. Chronic changes noted. Objective - Vital Signs Vital signs: Vital Signs Temp 98.5 F 11/20/19 08:00 Pulse 65 11/20/19 08:00 Resp 16 11/20/19 08:00 BP 115/69 11/20/19 08:00 Pulse Ox 93 L 11/20/19 08:00 Intake & Output 11/19/19 11/20/19 11/20/19 18:59 06:59 18:59 Intake Total 1420 100 480 Output Total 2049 1999 Balance -630 100 -1520 Weight 196.7 kg Intake: Intake, IV Titration 100 100 Amount Bumetanide 10 mg In 100 100 Dextrose 5% in Water 60 ml @ 1 MG/HR 10 mls/hr IV .Q10H NIKA Rx#:[id number] Oral 1320 480 Output: Urine 2049 1999 Other: # Voids 1 - Labs CBC & Chem 7: 11/17/19 13:18 11/19/19 05:34 Labs: Abnormal Lab Results - Last 24 Hours (Table) 11/19/19 11/20/19 Range/Units 20:17 06:26 POC Glucose (mg/dL) 111 H 114 H (75-99) mg/dL Assessment and Plan Plan: Assessment: 1. Acute kidney injury secondary to ATN secondary to cardiorenal syndrome. Creatinine 2.59 as of yesterday. 2. Chronic kidney disease. Recent creatinine in the range of 2.2-2.4. Establish baseline renal function. Etiology is nephrosclerosis as well as d iabetic kidney disease. 3. Metabolic alkalosis secondary to diuresis. 4. Volume overload. 5. Acute on chronic diastolic CHF with moderate tricuspid regurgitation, mitral regurgitation and pulmonary hypertension. 6. Diabetes mellitus. Plan: Maintain Bumex drip. Follow-up morning labs. If alkalosis not improving, I will add Diamox. 1500 mL fluid restriction. Continue to monitor renal function and urine output.
[2019-11-20] MEDS: SYMBICORT 80-4.5 MCG INHALER INHALATION SCH ×2 (10:10→19:58)
[2019-11-20 10:50] LABS: Calcium 8.9 mg/dL (8.4-10.2); Potassium 3.9 mmol/L (3.5-5.1)
[2019-11-20] MEDS: HYDROcodone/APAP 7.5-325MG 1 EACH TAB PO PRN (11:14)
[2019-11-20 11:42] LABS: Glucose,Whole Blood 80 mg/dL (75-99)
[2019-11-20] MEDS: NYSTATIN 100,000UNIT/GM CREAM 30 GM TUBE TOPICAL SCH ×2 (11:44→22:47)
--- NOTE | 2019-11-20 12:47 | P.PN ---
Subjective Progress Note Date: 11/20/19 This is a pleasant 59-year-old gentleman with an extensive medical history consistent off morbid obesity, chronic diastolic congestive heart failure, long- standing persistent atrial fibrillation on oral anticoagulation, diabetes, hypertension, dyslipidemia, chronic lower extremities edema, presented to the hospital complaining of increasing in the shortness of breath. The patient stated that for the last several weeks, he had been experiencing increasing in the shortness of breath. He has been watching his weight and he stated that he gained about 40 pounds within the last few weeks. He did have also increasing in the lower extremities edema. Patient states he is on a fixed income, by the time the middle of the month comes around, he has to go to the patient entry to get free food, most of his food is preserved, and very high in salt. He feels that this contributed significantly to his weight gain and worsening congestive heart failure. Let pressure this morning 116/60 with a heart rate in the 60s, 93% on room air. Sodium 139, potassium 3.9, BUN 90, creatinine 2.3. Weight is down 1 kg today. Objective - Vital Signs Vital signs: Vital Signs Temp 98.5 F 11/20/19 08:00 Pulse 16 L 11/20/19 08:00 Resp 16 11/20/19 11:27 BP 115/69 11/20/19 08:00 Pulse Ox 93 L 11/20/19 08:00 Intake & Output 11/19/19 11/20/19 11/20/19 18:59 06:59 18:59 Intake Total 1420 100 480 Output Total 2049 2600 Balance -630 100 -2120 Weight 196.7 kg Intake: Intake, IV Titration 100 100 Amount Bumetanide 10 mg In 100 100 Dextrose 5% in Water 60 ml @ 1 MG/HR 10 mls/hr IV .Q10H [facility]IKA Rx#:[id number] Oral 1320 480 Output: Urine 2049 2600 Other: # Voids 1 1 - Exam PHYSICAL EXAMINATION: GENERAL: 59-year-old gentleman in no acute distress at the time of my examination HEENT: Head is atraumatic, normocephalic. Pupils equal, round. Sclera anicteric. Conjunctiva are clear. Mucous membranes of the mouth are moist. Neck is supple. There is no elevated jugular venous pressure. No carotid bruit is heard. HEART EXAMINATION: Heart S1 and S2 irregularly irregular CHEST EXAMINATION: Lungs reveal diminished air entry bilaterally. ABDOMEN: Soft, nontender. Bowel sounds are heard. No organomegaly noted. EXTREMITIES: 2+ peripheral pulses with 3+ evidence of peripheral edema, evidence of chronic venous stasis. . NEUROLOGIC patient is awake, alert and oriented 3 . . - Labs CBC & Chem 7: 11/17/19 13:18 11/20/19 08:27 Labs: Abnormal Lab Results - Last 24 Hours (Table) 11/19/19 11/20/19 11/20/19 Range/Units 20:17 06:26 08:27 Chloride 89 L (98-107) mmol/L Carbon Dioxide 39 H (22-30) mmol/L BUN 90 H (9-20) mg/dL Creatinine 2.37 H (0.66-1.25) mg/dL Glucose 139 H (74-99) mg/dL POC Glucose (mg/dL) 111 H 114 H (75-99) mg/dL Assessment and Plan Plan: Assessment #1 congestive heart failure exacerbation secondary to diastole dysfunction, acute on chronic #2 long-standing persistent atrial fibrillation on oral anticoagulation #3 morbid obesity #4 chronic kidney disease #5 multiple comorbid conditions Plan We will continue IV Bumex, continue to monitor the intake and output along with daily weights closely. Social work consultation. DNP note has been reviewed, I agree with a documented findings and plan of care. Patient was seen and examined.
--- NOTE | 2019-11-20 13:01 | CDI ---
Documentation Clarification Form Date: 11/20/2019 12:54:29 PM From: Cindy Villarreal CCS, CCDS Admit Date: 11/17/2019 07:35:00 PM Patient Name: Arnold Alfredo Visit Number: [id number] Discharge Date: ATTENTION: The Clinical Documentation Specialists (CDI) and [facility] Coding Staff appreciate your assistance in clarifying documentation. Please respond to the clarification below the line at the bottom and electronically sign. The CDI & [facility] Coding staff will review the response and follow-up if needed. Please note: Queries are made part of the Legal Health Record. If you have any questions, please contact the author of this message via ITS. Dr. Ney Jenkins: A diagnosis of anemia lacks specificity to accurately reflect your patients severity of condition and clarification is needed. History/Risk Factors: Atrial fibrillation, COPD, IDDM with neuropathy, GERD, Hypertension, hyperlipidemia, OA, SUNIL, CHF, former smoker. Clinical indicators: Presented due to becoming easily winded. Diagnosed with acute on chronic diastolic CHF & CKD stage III. Hemoglobin: 9.5* Hematocrit: 32.0* Treatment: IV Lasix, INH Symbicort, IV Bumex, telemetry. In order to capture the severity of condition, please clarify the type of anemia and etiology if known: Acute blood loss anemia Acute on chronic blood loss anemia Chronic blood loss anemia Iron deficiency anemia Hemolytic anemia Drug induced anemia Nutritional anemia Anemia of chronic kidney disease Unable to determine Other, please specify (Last Revision: August 2017) Anemia of chronic kidney disease MTDD
[2019-11-20 17:10] LABS: Glucose,Whole Blood 86 mg/dL (75-99)
[2019-11-20 20:43] LABS: Glucose,Whole Blood 112 mg/dL (75-99)
--- NOTE | 2019-11-20 21:42 | P.PN ---
Progress Note - Text Progress Note Date: 11/20/19 Chief Complaint: Easily winded Interval history: This is a 58-year-old patient who follows with visiting physicians Dr. Aramis Saleh. extensive medical history. Chronic stable medical conditions include atrial fibrillation, COPD, diabetes, GERD, hypertension, hyperlipidemia, osteoarthritis, obstructive sleep apnea, bilateral neuropathy, CHF with EF of 60-65%, atrial fibrillation. Patient normally uses a cane around the house.. Lives alone. Patient presents with progressive increasing edema. No fever no chills. Getting is the short winded. Orthopneic. Slight cough. Patient was here in August 2019. Was treated with a Bumex drip. There is tobacco 30 L on that admission. Admitted with CHF exacerbation. Started on Bumex drip. Today-continues to be on a Bumex drip. On negative fluid balance. Able to use his cane and walk a few steps. Feeling better. Review of systems: Was done for constitutional, cardiovascular, GI, pulmonary. relevant finding as above Active Medications Hydrocodone Bitart/Acetaminophen ([place] 7.5-325) 1 each PO TID PRN PRN Reason: MODERATE Pain Last Admin: 11/20/19 11:14 Dose: 1 each Documented by: Allopurinol (Zyloprim) 100 mg PO BID [facility] Last Admin: 11/20/19 08:34 Dose: 100 mg Documented by: Aspirin (Aspirin) 81 mg PO DAILY [facility] Last Admin: 11/20/19 08:35 Dose: 81 mg Documented by: Atorvastatin Calcium (Lipitor) 10 mg PO HS [facility] Last Admin: 11/19/19 22:42 Dose: 10 mg Documented by: Budesonide/Formoterol Fumarate (Symbicort 80-4.5 Mcg Inhaler) 2 puff INHALATION RT-BID [facility] Last Admin: 11/20/19 19:58 Dose: 2 puff Documented by: Calcium Carbonate/Glycine (Tums) 500 mg PO DAILY [facility] Last Admin: 11/20/19 08:34 Dose: 500 mg Documented by: Clonazepam (Klonopin) 1 mg PO BID [facility] Last Admin: 11/20/19 08:34 Dose: 1 mg Documented by: Dabigatran (Pradaxa) 150 mg PO BID [facility] Last Admin: 11/20/19 08:34 Dose: 150 mg Documented by: Glipizide (Glucotrol) 5 mg PO DAILY [facility] Last Admin: 11/20/19 08:34 Dose: 5 mg Documented by: Bumetanide 10 mg/ Dextrose/ (Water) 100 mls @ 10 mls/hr IV .Q10H [facility] Last Admin: 11/20/19 07:21 Dose: 1 mg/hr, 10 mls/hr Documented by: Metoprolol Tartrate (Lopressor) 150 mg PO DAILY [facility] Last Admin: 11/20/19 08:34 Dose: 150 mg Documented by: Naloxone HCl (Narcan) 0.2 mg IV Q2M PRN PRN Reason: Opioid Reversal Nystatin (Mycostatin Cream) 1 applic TOPICAL BID [facility] Last Admin: 11/20/19 11:44 Dose: Not Given Documented by: Pantoprazole Sodium (Protonix) 40 mg PO AC-BID [facility] Last Admin: 11/20/19 17:24 Dose: 40 mg Documented by: Pregabalin (Lyrica) 100 mg PO BID [facility] Last Admin: 11/20/19 08:34 Dose: 100 mg Documented by: Spironolactone (Aldactone) 25 mg PO DAILY [facility] Last Admin: 11/20/19 08:34 Dose: 25 mg Documented by: Trazodone HCl (Desyrel) 50 mg PO HS [facility] Last Admin: 11/19/19 22:42 Dose: 50 mg Documented by: Physical examination: VITAL SIGNS: 97.2, 86, 18, 124/110, 95% on room air GENERAL: Sitting at the edge of the bed, looks a bit better. EYES: Pupils equal. Conjunctiva normal. HEENT: External appearance of nose and ears normal, oral cavity grossly normal. NECK: Short, thick, JVD unable to assess; masses not palpable. HEART: Distant heart sounds,; edema present, but pendular lower abdomen. LUNGS: Respiratory rate increased, distance breath sounds. ABDOMEN: Soft, large pendulous abdomen, some evidence of fungal infection in the groin, nontender, liver spleen not palpable, no masses palpable. PSYCH: Alert and oriented x3; mood and affect normal. DERMATOLOGICAL: Evidence of flaky skin and venous dermatitis on the lower extremity INVESTIGATIONS, reviewed in the clinical context: Potassium 3.9 bun 90 creatine 2.37 Previous testing White count 8 hemoglobin 9.5 platelets 284 Potassium 4.3 bicarb 42 bun 78 creatinine 2.34 Troponin I 0.065 proBNP 2980 Patient's labs in August 2019 was bun of 56 creatinine 2.36 Chest x-ray film personally reviewed by me-cardiomegaly, pulmonary edema, fluid in the fissure 2-D echocardiogram from January 2019-EF 60-65% with wall motion abnormality EKG tracing personally reviewed by me-atrial fibrillation, rate controlled Assessment: -Acute on chronic congestive heart failure exacerbation from diastolic dysfunction EF 60-65%, slow to respond, remains on Bumex drip -Persistent atrial fibrillation rate controlled on presentation -Chronic kidney disease stage III probably nephrosclerosis -Morbid obesity BMI 64.3 -COPD -Diabetes mellitus type 2, on oral hypoglycemic -GERD -Hyperlipidemia -Essential hypertension -Chronic medical debility -Obstructive sleep apnea -Diabetic peripheral neuropathy -Stasis dermatitis, bilateral lower extremity -Metabolic alkalosis from diuresis Plan: Continue with Bumex drip. Follow I's and O's. Patient advised about fluid intake. Follow I's closely. Other medications to continue.. Add Diamox 250 mg twice a day
[2019-11-20] MEDS: ATORVASTATIN 10 MG TAB PO SCH (22:47)
[2019-11-20] MEDS: traZODone HCL 50 MG TAB PO SCH (22:47)
[2019-11-21 06:09] LABS: Glucose,Whole Blood 138 mg/dL (75-99)
[2019-11-21] MEDS: acetaZOLAMIDE 250 MG TAB PO SCH ×2 (06:31→09:32)
[2019-11-21 06:36] LABS: Calcium 8.9 mg/dL (8.4-10.2); Magnesium 2.3 mg/dL (1.6-2.3); Potassium 3.9 mmol/L (3.5-5.1)
[2019-11-21] MEDS: PANTOPRAZOLE 40 MG TABLET PO SCH ×2 (06:46→18:31)
[2019-11-21] MEDS: BUMETANIDE 10 MG in DEXTROSE 5% IN WATER 60 ML IV SCH ×10 (06:47→23:35)
[2019-11-21] MEDS: METOPROLOL TARTRATE 50 MG TAB PO SCH (09:32)
[2019-11-21] MEDS: DABIGATRAN 150 MG CAP PO SCH ×2 (09:32→20:15)
[2019-11-21] MEDS: clonazePAM 1 MG TAB PO SCH ×2 (09:32→20:16)
[2019-11-21] MEDS: ALLOPURINOL 100 MG TAB PO SCH ×2 (09:33→20:16)
[2019-11-21] MEDS: SPIRONOLACTONE 25 MG TAB PO SCH (09:33)
[2019-11-21] MEDS: CALCIUM CARBONATE 500 MG CHEWABLE PO SCH (09:33)
[2019-11-21] MEDS: glipiZIDE 5 MG TAB PO SCH (09:33)
[2019-11-21] MEDS: PREGABALIN 100 MG CAP PO SCH ×2 (09:33→20:15)
[2019-11-21] MEDS: ASPIRIN 81 MG PO SCH (09:33)
[2019-11-21] MEDS: NYSTATIN 100,000UNIT/GM CREAM 30 GM TUBE TOPICAL SCH (09:34)
[2019-11-21 10:54] LABS: Protein/Creatinine Ratio,Urine 0.6
--- NOTE | 2019-11-21 11:25 | P.PN ---
Subjective Patient is seen in follow-up for acute kidney injury on chronic kidney disease. Edema improving. Maintained on Bumex drip. Bicarbonate up to 45. Denies chest pain. Oral intake is good. Vital signs are stable. General: The patient appeared well nourished and normally developed. HEENT: Head exam is unremarkable. Neck is without jugular venous distension. LUNGS: Breath sounds decreased. HEART: Rate and Rhythm are regular. First and second heart sounds normal. No murmurs, rubs or gallops. ABDOMEN: Abdominal exam reveals normal bowel sounds. Obese. Soft. EXTREMITITES: 2+ edema. Chronic changes noted. Objective - Vital Signs Vital signs: Vital Signs Temp 96.8 F L 11/21/19 04:00 Pulse 16 L 11/21/19 04:00 Resp 18 11/21/19 04:00 BP 115/73 11/21/19 04:00 Pulse Ox 92 L 11/21/19 04:00 Intake & Output 11/20/19 11/21/19 11/21/19 18:59 06:59 18:59 Intake Total 820 240 280 Output Total 2600 600 800 Balance -1780 -360 -520 Weight 196.7 kg 196.9 kg Intake: Intake, IV Titration 100 Amount Bumetanide 10 mg In 100 Dextrose 5% in Water 60 ml @ 1 MG/HR 10 mls/hr IV .Q10H [facility] Rx#:[id number] Oral 720 240 280 Output: Urine 2600 600 800 Other: # Voids 1 1 - Labs CBC & Chem 7: 11/17/19 13:18 11/21/19 05:47 Labs: Abnormal Lab Results - Last 24 Hours (Table) 11/20/19 11/21/19 11/21/19 Range/Units 20:42 05:47 06:00 Chloride 88 L (98-107) mmol/L Carbon Dioxide 45 H* (22-30) mmol/L BUN 96 H (9-20) mg/dL Creatinine 2.36 H (0.66-1.25) mg/dL Glucose 129 H (74-99) mg/dL POC Glucose (mg/dL) 112 H 138 H (75-99) mg/dL Assessment and Plan Plan: Assessment: 1. Acute kidney injury secondary to ATN secondary to cardiorenal syndrome. Renal function stable. 2. Chronic kidney disease. Recent creatinine in the range of 2.2-2.4. Establish baseline renal function. Etiology is nephrosclerosis as well as diabetic kidney disease. 3. Metabolic alkalosis secondary to diuresis. 4. Volume overload. 5. Acute on chronic diastolic CHF with moderate tricuspid regurgitation, mitral regurgitation and pulmonary hypertension. 6. Diabetes mellitus. Plan: Maintain Bumex drip. Add Diamox 250 mg IV twice daily. 1500 mL fluid restriction. Continue to monitor renal function and urine output.
[2019-11-21 11:50] LABS: Glucose,Whole Blood 112 mg/dL (75-99)
[2019-11-21] MEDS: SYMBICORT 80-4.5 MCG INHALER INHALATION SCH ×2 (11:56→19:41)
--- NOTE | 2019-11-21 14:28 | P.PN ---
Subjective Progress Note Date: 11/21/19 This is a pleasant 59-year-old gentleman with an extensive medical history consistent off morbid obesity, chronic diastolic congestive heart failure, long- standing persistent atrial fibrillation on oral anticoagulation, diabetes, hypertension, dyslipidemia, chronic lower extremities edema, presented to the hospital complaining of increasing in the shortness of breath. The patient stated that for the last several weeks, he had been experiencing increasing in the shortness of breath. He has been watching his weight and he stated that he gained about 40 pounds within the last few weeks. He did have also increasing in the lower extremities edema. Patient states he is on a fixed income, by the time the middle of the month comes around, he has to go to the patient entry to get free food, most of his food is preserved, and very high in salt. He feels that this contributed significantly to his weight gain and worsening congestive heart failure. Let pressure this morning 116/60 with a heart rate in the 60s, 93% on room air. Sodium 139, potassium 3.9, BUN 90, creatinine 2.3. Weight is down 1 kg today. 11/21/2019 Patient seen and examined this morning, continues to diurese very well on the Bumex drip. Sitting up in the chair today at the time of my examination. At pressure 124/70 with a heart rate of 90, 94% on BiPAP. Sodium 139, potassium 3.9, BUN 96, creatinine 2.3. Objective - Vital Signs Vital signs: Vital Signs Temp 96.8 F L 11/21/19 04:00 Pulse 106 H 11/21/19 11:51 Resp 22 11/21/19 11:51 BP 124/74 11/21/19 08:00 Pulse Ox 94 L 11/21/19 08:00 Intake & Output 11/20/19 11/21/19 11/21/19 18:59 06:59 18:59 Intake Total 820 240 520 Output Total 2600 600 800 Balance -1780 -360 -280 Weight 196.7 kg 196.9 kg Intake: Intake, IV Titration 100 Amount Bumetanide 10 mg In 100 Dextrose 5% in Water 60 ml @ 1 MG/HR 10 mls/hr IV .Q10H [facility] Rx#:[id number] Oral 720 240 520 Output: Urine 2600 600 800 Other: # Voids 1 1 - Exam PHYSICAL EXAMINATION: GENERAL: 59-year-old gentleman in no acute distress at the time of my examination HEENT: Head is atraumatic, normocephalic. Pupils equal, round. Sclera anicteric. Conjunctiva are clear. Mucous membranes of the mouth are moist. Neck is supple. There is no elevated jugular venous pressure. No carotid bruit is heard. HEART EXAMINATION: Heart S1 and S2 irregularly irregular CHEST EXAMINATION: Lungs reveal diminished air entry bilaterally. ABDOMEN: Soft, nontender. Bowel sounds are heard. No organomegaly noted. EXTREMITIES: 2+ peripheral pulses with 3+ evidence of peripheral edema, evidence of chronic venous stasis. . NEUROLOGIC patient is awake, alert and oriented 3 . . - Labs CBC & Chem 7: 11/17/19 13:18 11/21/19 05:47 Labs: Abnormal Lab Results - Last 24 Hours (Table) 11/20/19 11/21/19 11/21/19 Range/Units 20:42 05:47 06:00 Chloride 88 L (98-107) mmol/L Carbon Dioxide 45 H* (22-30) mmol/L BUN 96 H (9-20) mg/dL Creatinine 2.36 H (0.66-1.25) mg/dL Glucose 129 H (74-99) mg/dL POC Glucose (mg/dL) 112 H 138 H (75-99) mg/dL 11/21/19 Range/Units 11:48 Chloride (98-107) mmol/L Carbon Dioxide (22-30) mmol/L BUN (9-20) mg/dL Creatinine (0.66-1.25) mg/dL Glucose (74-99) mg/dL POC Glucose (mg/dL) 112 H (75-99) mg/dL Assessment and Plan Plan: Assessment #1 congestive heart failure exacerbation secondary to diastole dysfunction, acute on chronic #2 long-standing persistent atrial fibrillation on oral anticoagulation #3 morbid obesity #4 chronic kidney disease #5 multiple comorbid conditions Plan We will continue IV Bumex drip, continue to monitor the intake and output along with daily weights closely. Repeat chest x-ray in the morning. DNP note has been reviewed, I agree with a documented findings and plan of care. Patient was seen and examined.
[2019-11-21 17:17] LABS: Glucose,Whole Blood 115 mg/dL (75-99)
--- NOTE | 2019-11-21 20:13 | XR ---
EXAMINATION TYPE: XR chest 2V DATE OF EXAM: 11/21/2019 COMPARISON: 11/17/2019 HISTORY: Difficulty breathing TECHNIQUE: 2 views FINDINGS: Heart is enlarged. There is some infiltrate and atelectasis at both lung bases. There is so me thickening of the right major fissure. Heart is enlarged. There is mild pulmonary congestion. IMPRESSION: There is probably mild heart failure that is new compared to last exam. There is increase d linear infiltrate and atelectasis at the lung bases.
[2019-11-21] MEDS: traZODone HCL 50 MG TAB PO SCH (20:16)
[2019-11-21] MEDS: ATORVASTATIN 10 MG TAB PO SCH (20:16)
[2019-11-21] MEDS: NYSTATIN 100,000 UNIT/GM POWD 15 GM TOPICAL SCH (20:22)
[2019-11-21 20:52] LABS: Glucose,Whole Blood 125 mg/dL (75-99)
--- NOTE | 2019-11-22 00:50 | P.PN ---
Progress Note - Text Progress Note Date: 11/21/19 Chief Complaint: Easily winded Interval history: This is a 58-year-old patient who follows with visiting physicians Dr. Aramis Saleh. extensive medical history. Chronic stable medical conditions include atrial fibrillation, COPD, diabetes, GERD, hypertension, hyperlipidemia, osteoarthritis, obstructive sleep apnea, bilateral neuropathy, CHF with EF of 60-65%, atrial fibrillation. Patient normally uses a cane around the house.. Lives alone. Patient presents with progressive increasing edema. No fever no chills. Getting is the short winded. Orthopneic. Slight cough. Patient was here in August 2019. Was treated with a Bumex drip. There is tobacco 30 L on that admission. Admitted with CHF exacerbation. Started on Bumex drip. Today-continues to be on a Bumex drip. On negative fluid balance. About 5 years. Using his cane better. No indurations. Active Medications Hydrocodone Bitart/Acetaminophen ([place] 7.5-325) 1 each PO TID PRN PRN Reason: MODERATE Pain Last Admin: 11/20/19 11:14 Dose: 1 each Documented by: Acetazolamide Sodium (Diamox) 250 mg IV Q12HR [facility] Last Admin: 11/21/19 20:16 Dose: 250 mg Documented by: Allopurinol (Zyloprim) 100 mg PO BID [facility] Last Admin: 11/21/19 20:16 Dose: 100 mg Documented by: Aspirin (Aspirin) 81 mg PO DAILY [facility] Last Admin: 11/21/19 09:33 Dose: 81 mg Documented by: Atorvastatin Calcium (Lipitor) 10 mg PO HS [facility] Last Admin: 11/21/19 20:16 Dose: 10 mg Documented by: Budesonide/Formoterol Fumarate (Symbicort 80-4.5 Mcg Inhaler) 2 puff INHALATION RT-BID [facility] Last Admin: 11/21/19 19:41 Dose: 2 puff Documented by: Calcium Carbonate/Glycine (Tums) 500 mg PO DAILY [facility] Last Admin: 11/21/19 09:33 Dose: 500 mg Documented by: Clonazepam (Klonopin) 1 mg PO BID [facility] Last Admin: 11/21/19 20:16 Dose: 1 mg Documented by: Dabigatran (Pradaxa) 150 mg PO BID [facility] Last Admin: 11/21/19 20:15 Dose: 150 mg Documented by: Glipizide (Glucotrol) 5 mg PO DAILY [facility] Last Admin: 11/21/19 09:33 Dose: 5 mg Documented by: Bumetanide 10 mg/ Dextrose/ (Water) 100 mls @ 10 mls/hr IV .Q10H [facility] Last Admin: 11/21/19 23:35 Dose: 1 mg/hr, 10 mls/hr Documented by: Metoprolol Tartrate (Lopressor) 150 mg PO DAILY [facility] Last Admin: 11/21/19 09:32 Dose: 150 mg Documented by: Naloxone HCl (Narcan) 0.2 mg IV Q2M PRN PRN Reason: Opioid Reversal Nystatin (Mycostatin Powder) 1 applic TOPICAL BID [facility] Last Admin: 11/21/19 20:22 Dose: 1 applic Documented by: Pantoprazole Sodium (Protonix) 40 mg PO AC-BID [facility] Last Admin: 11/21/19 18:31 Dose: 40 mg Documented by: Pregabalin (Lyrica) 100 mg PO BID [facility] Last Admin: 11/21/19 20:15 Dose: 100 mg Documented by: Spironolactone (Aldactone) 25 mg PO DAILY [facility] Last Admin: 11/21/19 09:33 Dose: 25 mg Documented by: Trazodone HCl (Desyrel) 50 mg PO HS [facility] Last Admin: 11/21/19 20:16 Dose: 50 mg Documented by: Physical examination: VITAL SIGNS: 98.3, 91, 20, 11 7/56, 94% on 3 L GENERAL: Sitting up in a chair. Awake EYES: Pupils equal. Conjunctiva normal. HEENT: External appearance of nose and ears normal, oral cavity grossly normal. NECK: Short, thick, JVD unable to assess; masses not palpable. HEART: Distant heart sounds,; edema present, but pendular lower abdomen. LUNGS: Respiratory rate increased, distance breath sounds. ABDOMEN: Soft, large pendulous abdomen, some evidence of fungal infection in the groin, nontender, liver spleen not palpable, no masses palpable. PSYCH: Alert and oriented x3; mood and affect normal. DERMATOLOGICAL: Evidence of flaky skin and venous dermatitis on the lower extremity INVESTIGATIONS, reviewed in the clinical context: Potassium 3.9 bun 96 creatinine 2.36 Previous testing White count 8 hemoglobin 9.5 platelets 284 Potassium 4.3 bicarb 42 bun 78 creatinine 2.34 Troponin I 0.065 proBNP 2980 Patient's labs in August 2019 was bun of 56 creatinine 2.36 Chest x-ray film personally reviewed by me-cardiomegaly, pulmonary edema, fluid in the fissure 2-D echocardiogram from January 2019-EF 60-65% with wall motion abnormality EKG tracing personally reviewed by me-atrial fibrillation, rate controlled Assessment: -Acute on chronic congestive heart failure exacerbation from diastolic dysfunction EF 60-65%, slow to respond, remains on Bumex drip -Persistent atrial fibrillation rate controlled on presentation -Chronic kidney disease stage III probably nephrosclerosis -Morbid obesity BMI 64.3 -COPD -Diabetes mellitus type 2, on oral hypoglycemic -GERD -Hyperlipidemia -Essential hypertension -Chronic medical debility -Obstructive sleep apnea -Diabetic peripheral neuropathy -Stasis dermatitis, bilateral lower extremity -Metabolic alkalosis from diuresis Plan: Continue with Bumex drip. Slowly improving. Diamox was added yesterday. Oral intake improving. Continue current medication treatment plan.
[2019-11-22 06:01] LABS: Glucose,Whole Blood 197 mg/dL (75-99)
[2019-11-22] MEDS: PANTOPRAZOLE 40 MG TABLET PO SCH ×2 (06:26→17:16)
[2019-11-22 06:46] LABS: Magnesium 2.2 mg/dL (1.6-2.3); Potassium 3.9 mmol/L (3.5-5.1)
[2019-11-22] MEDS: SYMBICORT 80-4.5 MCG INHALER INHALATION SCH ×2 (08:39→20:23)
[2019-11-22] MEDS: DABIGATRAN 150 MG CAP PO SCH ×2 (08:52→20:26)
[2019-11-22] MEDS: HYDROcodone/APAP 7.5-325MG 1 EACH TAB PO PRN ×2 (08:54→17:18)
[2019-11-22] MEDS: METOPROLOL TARTRATE 50 MG TAB PO SCH (08:55)
[2019-11-22] MEDS: clonazePAM 1 MG TAB PO SCH ×2 (08:55→20:26)
[2019-11-22] MEDS: glipiZIDE 5 MG TAB PO SCH (08:55)
[2019-11-22] MEDS: CALCIUM CARBONATE 500 MG CHEWABLE PO SCH (08:55)
[2019-11-22] MEDS: PREGABALIN 100 MG CAP PO SCH ×2 (08:56→20:26)
[2019-11-22] MEDS: SPIRONOLACTONE 25 MG TAB PO SCH (08:57)
[2019-11-22] MEDS: ALLOPURINOL 100 MG TAB PO SCH ×2 (08:57→20:26)
[2019-11-22] MEDS: ASPIRIN 81 MG PO SCH (08:57)
--- NOTE | 2019-11-22 09:15 | P.PN ---
Subjective Patient is seen in follow-up for acute kidney injury on chronic kidney disease. Edema improving. Maintained on Bumex drip. Bicarbonate stable at 44. Denies chest pain. Oral intake is good. UO near 4 L in last 24 hrs. Vital signs are stable. General: The patient appeared well nourished and normally developed. HEENT: Head exam is unremarkable. Neck is without jugular venous distension. LUNGS: Breath sounds decreased. HEART: Rate and Rhythm are regular. First and second heart sounds normal. No murmurs, rubs or gallops. ABDOMEN: Abdominal exam reveals normal bowel sounds. Obese. Soft. EXTREMITITES: 2+ edema. Chronic changes noted. Objective - Vital Signs Vital signs: Vital Signs Temp 98 F 11/22/19 08:00 Pulse 138 H 11/22/19 08:00 Resp 20 11/22/19 08:00 BP 126/88 11/22/19 08:00 Pulse Ox 90 L 11/22/19 08:00 Intake & Output 11/21/19 11/22/19 11/22/19 18:59 06:59 18:59 Intake Total 620 289.833 360 Output Total 800 Balance -180 289.833 360 Weight 196.5 kg Intake: Intake, IV Titration 100 49.833 Amount Bumetanide 10 mg In 100 49.833 Dextrose 5% in Water 60 ml @ 1 MG/HR 10 mls/hr IV .Q10H [facility] Rx#:[id number] Oral 520 240 360 Output: Urine 800 - Labs CBC & Chem 7: 11/17/19 13:18 11/22/19 05:13 Labs: Abnormal Lab Results - Last 24 Hours (Table) 11/21/19 11/21/19 11/21/19 Range/Units 11:48 17:16 20:49 Chloride (98-107) mmol/L Carbon Dioxide (22-30) mmol/L BUN (9-20) mg/dL Creatinine (0.66-1.25) mg/dL Glucose (74-99) mg/dL POC Glucose (mg/dL) 112 H 115 H 125 H (75-99) mg/dL 11/22/19 11/22/19 Range/Units 05:13 05:59 Chloride 88 L (98-107) mmol/L Carbon Dioxide 44 H* (22-30) mmol/L BUN 89 H (9-20) mg/dL Creatinine 2.69 H (0.66-1.25) mg/dL Glucose 136 H (74-99) mg/dL POC Glucose (mg/dL) 197 H (75-99) mg/dL Assessment and Plan Plan: Assessment: 1. Acute kidney injury secondary to ATN secondary to cardiorenal syndrome. Renal function worse today which is due to diuresis. Creatinine 2.69. 2. Chronic kidney disease. Recent creatinine in the range of 2.2-2.4. Establish baseline renal function. Etiology is nephrosclerosis as well as diabetic kidney disease. 3. Metabolic alkalosis secondary to diuresis. 4. Volume overload. 5. Acute on chronic diastolic CHF with moderate tricuspid regurgitation, mitral regurgitation and pulmonary hypertension. 6. Diabetes mellitus. Plan: Maintain Bumex drip. Increase Diamox 500 mg IV twice daily. 1500 mL fluid restriction. Continue to monitor renal function and urine output. Repeat electrolytes in the morning.
[2019-11-22] MEDS: NYSTATIN 100,000 UNIT/GM POWD 15 GM TOPICAL SCH ×2 (10:38→20:27)
[2019-11-22 12:13] LABS: Glucose,Whole Blood 158 mg/dL (75-99)
--- NOTE | 2019-11-22 14:25 | P.PN ---
Subjective Progress Note Date: 11/22/19 This is a pleasant 59-year-old gentleman with an extensive medical history consistent off morbid obesity, chronic diastolic congestive heart failure, long- standing persistent atrial fibrillation on oral anticoagulation, diabetes, hypertension, dyslipidemia, chronic lower extremities edema, presented to the hospital complaining of increasing in the shortness of breath. The patient stated that for the last several weeks, he had been experiencing increasing in the shortness of breath. He has been watching his weight and he stated that he gained about 40 pounds within the last few weeks. He did have also increasing in the lower extremities edema. Patient states he is on a fixed income, by the time the middle of the month comes around, he has to go to the patient entry to get free food, most of his food is preserved, and very high in salt. He feels that this contributed significantly to his weight gain and worsening congestive heart failure. Let pressure this morning 116/60 with a heart rate in the 60s, 93% on room air. Sodium 139, potassium 3.9, BUN 90, creatinine 2.3. Weight is down 1 kg today. 11/21/2019 Patient seen and examined this morning, continues to diurese very well on the Bumex drip. Sitting up in the chair today at the time of my examination. At pressure 124/70 with a heart rate of 90, 94% on BiPAP. Sodium 139, potassium 3.9, BUN 96, creatinine 2.3. 11/22/2019 Patient seen and examined this morning, continues to be on the Bumex drip, diuresing well. He states he didn't feel well earlier this morning but at the time of my examination is feeling quite well, he does state that he feels the swelling in his legs is improving significantly and his breathing seems to be improving as well. Blood Pressure 100/50 with a heart rate in the 70s, 94% on room air. Sodium 142, potassium 3.9, BUN 89, creatinine 2.6. Magnesium 2.2. Objective - Vital Signs Vital signs: Vital Signs Temp 98.1 F 11/22/19 11:58 Pulse 75 11/22/19 12:00 Resp 20 11/22/19 12:00 BP 100/50 11/22/19 11:58 Pulse Ox 94 L 11/22/19 11:58 Intake & Output 01/11/22/19 11/22/19 18:59 06:59 18:59 Intake Total 620 289.833 360 Output Total 800 1200 Balance -180 289.833 -840 Weight 196.5 kg Intake: Intake, IV Titration 100 49.833 Amount Bumetanide 10 mg In 100 49.833 Dextrose 5% in Water 60 ml @ 1 MG/HR 10 mls/hr IV .Q10H [facility] Rx#:[id number] Oral 520 240 360 Output: Urine 800 1200 Other: # Voids 1 - Exam PHYSICAL EXAMINATION: GENERAL: 59-year-old gentleman in no acute distress at the time of my examination HEENT: Head is atraumatic, normocephalic. Pupils equal, round. Sclera anicteric. Conjunctiva are clear. Mucous membranes of the mouth are moist. Neck is supple. There is no elevated jugular venous pressure. No carotid bruit is heard. HEART EXAMINATION: Heart S1 and S2 irregularly irregular CHEST EXAMINATION: Lungs reveal diminished air entry bilaterally. ABDOMEN: Soft, nontender. Bowel sounds are heard. No organomegaly noted. EXTREMITIES: 2+ peripheral pulses with 2+ evidence of peripheral edema, evidence of chronic venous stasis. . NEUROLOGIC patient is awake, alert and oriented 3 . . - Labs CBC & Chem 7: 11/17/19 13:18 11/22/19 05:13 Labs: Abnormal Lab Results - Last 24 Hours (Table) 11/21/19 11/21/19 11/22/19 Range/Units 17:16 20:49 05:13 Chloride 88 L (98-107) mmol/L Carbon Dioxide 44 H* (22-30) mmol/L BUN 89 H (9-20) mg/dL Creatinine 2.69 H (0.66-1.25) mg/dL Glucose 136 H (74-99) mg/dL POC Glucose (mg/dL) 115 H 125 H (75-99) mg/dL 11/22/19 11/22/19 Range/Units 05:59 12:08 Chloride (98-107) mmol/L Carbon Dioxide (22-30) mmol/L BUN (9-20) mg/dL Creatinine (0.66-1.25) mg/dL Glucose (74-99) mg/dL POC Glucose (mg/dL) 197 H 158 H (75-99) mg/dL Assessment and Plan Plan: Assessment #1 congestive heart failure exacerbation secondary to diastole dysfunction, acute on chronic #2 long-standing persistent atrial fibrillation on oral anticoagulation #3 morbid obesity #4 chronic kidney disease #5 multiple comorbid conditions Plan We will continue IV Bumex drip, add a decreased dose of 1 mg, increase Aldactone to 50 mg daily, discontinue potassium. Patient continues to diurese as he has been, we will discontinue the IV Bumex tomorrow and start the patient on 120 mg of Lasix in the morning and 80 in the evening. Chest x-ray does show some mild improvement. DNP note has been reviewed, I agree with a documented findings and plan of care. Patient was seen and examined.
[2019-11-22 16:55] LABS: Glucose,Whole Blood 112 mg/dL (75-99)
[2019-11-22] MEDS: BUMETANIDE 10 MG in DEXTROSE 5% IN WATER 60 ML IV SCH ×2 (17:09)
[2019-11-22] MEDS: ATORVASTATIN 10 MG TAB PO SCH (20:26)
[2019-11-22] MEDS: traZODone HCL 50 MG TAB PO SCH (20:26)
[2019-11-22 21:03] LABS: Glucose,Whole Blood 363 mg/dL (75-99)
[2019-11-22] MEDS: INSULIN ASPART (NovoLOG) 100 UNIT/ML VIAL SQ SCH (21:35)
--- NOTE | 2019-11-23 01:46 | P.PN ---
Progress Note - Text Progress Note Date: 11/22/19 Chief Complaint: Easily winded Interval history: This is a 58-year-old patient who follows with visiting physicians Dr. Aramis Saleh. extensive medical history. Chronic stable medical conditions include atrial fibrillation, COPD, diabetes, GERD, hypertension, hyperlipidemia, osteoarthritis, obstructive sleep apnea, bilateral neuropathy, CHF with EF of 60-65%, atrial fibrillation. Patient normally uses a cane around the house.. Lives alone. Patient presents with progressive increasing edema. No fever no chills. Getting is the short winded. Orthopneic. Slight cough. Patient was here in August 2019. Was treated with a Bumex drip. There is tobacco 30 L on that admission. Admitted with CHF exacerbation. Started on Bumex drip. Today-continues to be on a Bumex drip. On negative fluid balance. Over 5 L Using his cane better. Doing better. He would use a cane and get to the bathroom now. Review of systems: Was done for constitutional, cardiovascular, GI, pulmonary. relevant finding as above. Active Medications Hydrocodone Bitart/Acetaminophen ([place] 7.5-325) 1 each PO TID PRN PRN Reason: MODERATE Pain Last Admin: 11/22/19 17:18 Dose: 1 each Documented by: Acetazolamide Sodium (Diamox) 500 mg IV Q12HR [facility] Last Admin: 11/22/19 20:26 Dose: 500 mg Documented by: Allopurinol (Zyloprim) 100 mg PO BID [facility] Last Admin: 11/22/19 20:26 Dose: 100 mg Documented by: Aspirin (Aspirin) 81 mg PO DAILY [facility] Last Admin: 11/22/19 08:57 Dose: 81 mg Documented by: Atorvastatin Calcium (Lipitor) 10 mg PO HS [facility] Last Admin: 11/22/19 20:26 Dose: 10 mg Documented by: Budesonide/Formoterol Fumarate (Symbicort 80-4.5 Mcg Inhaler) 2 puff INHALATION RT-BID [facility] Last Admin: 11/22/19 20:23 Dose: 2 puff Documented by: Calcium Carbonate/Glycine (Tums) 500 mg PO DAILY [facility] Last Admin: 11/22/19 08:55 Dose: 500 mg Documented by: Clonazepam (Klonopin) 1 mg PO BID [facility] Last Admin: 11/22/19 20:26 Dose: 1 mg Documented by: Dabigatran (Pradaxa) 150 mg PO BID [facility] Last Admin: 11/22/19 20:26 Dose: 150 mg Documented by: Glipizide (Glucotrol) 5 mg PO DAILY [facility] Last Admin: 11/22/19 08:55 Dose: 5 mg Documented by: Bumetanide 10 mg/ Dextrose/ (Water) 100 mls @ 10 mls/hr IV .Q10H [facility] Last Admin: 11/22/19 17:09 Dose: 1 mg/hr, 10 mls/hr Documented by: Insulin Aspart (Novolog) 0 unit SQ ACHS [facility]; Protocol Last Admin: 11/22/19 21:35 Dose: 10 unit Documented by: Metoprolol Tartrate (Lopressor) 150 mg PO DAILY [facility] Last Admin: 11/22/19 08:55 Dose: 150 mg Documented by: Naloxone HCl (Narcan) 0.2 mg IV Q2M PRN PRN Reason: Opioid Reversal Nystatin (Mycostatin Powder) 1 applic TOPICAL BID [facility] Last Admin: 11/22/19 20:27 Dose: 1 applic Documented by: Pantoprazole Sodium (Protonix) 40 mg PO AC-BID [facility] Last Admin: 11/22/19 17:16 Dose: 40 mg Documented by: Pregabalin (Lyrica) 100 mg PO BID [facility] Last Admin: 11/22/19 20:26 Dose: 100 mg Documented by: Spironolactone (Aldactone) 50 mg PO DAILY [facility] Trazodone HCl (Desyrel) 50 mg PO HS [facility] Last Admin: 11/22/19 20:26 Dose: 50 mg Documented by: Physical examination: VITAL SIGNS: 98.1, 75, 20, 100/50, 94% on 3 L GENERAL: Sitting up in a chair. Feeling better EYES: Pupils equal. Conjunctiva normal. HEENT: External appearance of nose and ears normal, oral cavity grossly normal. NECK: Short, thick, JVD unable to assess; masses not palpable. HEART: Distant heart sounds,; edema present, but pendular lower abdomen. LUNGS: Respiratory rate increased, distance breath sounds. ABDOMEN: Soft, large pendulous abdomen, some evidence of fungal infection in the groin, nontender, liver spleen not palpable, no masses palpable. PSYCH: Alert and oriented x3; mood and affect normal. DERMATOLOGICAL: Evidence of flaky skin and venous dermatitis on the lower extremity INVESTIGATIONS, reviewed in the clinical context: Potassium 3.9 bun 89 creatine 2.69 Previous testing White count 8 hemoglobin 9.5 platelets 284 Potassium 4.3 bicarb 42 bun 78 creatinine 2.34 Troponin I 0.065 proBNP 2980 Patient's labs in August 2019 was bun of 56 creatinine 2.36 Chest x-ray film personally reviewed by me-cardiomegaly, pulmonary edema, fluid in the fissure 2-D echocardiogram from January 2019-EF 60-65% with wall motion abnormality EKG tracing personally reviewed by me-atrial fibrillation, rate controlled Assessment: -Acute on chronic congestive heart failure exacerbation from diastolic dysfunction EF 60-65%, doing better remains on Bumex drip -Persistent atrial fibrillation rate controlled on presentation -Chronic kidney disease stage III probably nephrosclerosis -Morbid obesity BMI 64.3 -COPD -Diabetes mellitus type 2, on oral hypoglycemic -GERD -Hyperlipidemia -Essential hypertension -Chronic medical debility -Obstructive sleep apnea -Diabetic peripheral neuropathy -Stasis dermatitis, bilateral lower extremity -Metabolic alkalosis from diuresis Plan: Continue with Bumex drip. Also in IV Diamox. Hopefully changed to oral diuretics tomorrow. Discussed with the patient.
[2019-11-23] MEDS: BUMETANIDE 10 MG in DEXTROSE 5% IN WATER 60 ML IV SCH ×6 (02:10→20:40)
[2019-11-23 05:29] LABS: Glucose,Whole Blood 155 mg/dL (75-99)
[2019-11-23] MEDS: INSULIN ASPART (NovoLOG) 100 UNIT/ML VIAL SQ SCH ×4 (06:26→20:44)
[2019-11-23] MEDS: PANTOPRAZOLE 40 MG TABLET PO SCH ×2 (06:27→16:44)
--- NOTE | 2019-11-23 06:31 | CT ---
EXAM: CT Head Without Intravenous Contrast CLINICAL HISTORY: ITS.REASON CT Reason: Fall and hit head TECHNIQUE: Axial computed tomography images of the head/brain without intravenous contrast. CTDI is 49.1 mGy and DLP is 1145.4 mGy-cm. This CT exam was performed using one or more of the following dose reduction techniques: automated exposure control, adjustment of the mA and/or kV according to patient size, and/or use of iterative reconstruction technique. COMPARISON: CT 08/06/19. FINDINGS: Brain: Limited study. No hemorrhage. No acute cortical infarct. No mass effect or midline shift. Age-related changes. Ventricles: Unremarkable. Bones/joints: Lucent lesion in the anterior maxilla, similar to prior. Soft tissues: Unremarkable. Sinuses: Unremarkable as visualized. Mastoid air cells: Unremarkable as visualized. IMPRESSION: No acute intracranial process.
[2019-11-23 06:57] LABS: Calcium 8.9 mg/dL (8.4-10.2); Magnesium 2.4 mg/dL (1.6-2.3); Potassium 4.2 mmol/L (3.5-5.1)
[2019-11-23] MEDS: SYMBICORT 80-4.5 MCG INHALER INHALATION SCH ×2 (08:07→20:50)
--- NOTE | 2019-11-23 10:38 | P.PN ---
Subjective Patient is seen in follow-up for acute kidney injury on chronic kidney disease. Edema improving. Maintained on Bumex drip. Bicarb level of 49 today. This was drawn while the patient was on 3 L nasal cannula. Now on BiPAP. Denies chest pain. Oral intake is good. Vital signs are stable. General: The patient appeared well nourished and normally developed. HEENT: Head exam is unremarkable. Neck is without jugular venous distension. LUNGS: Breath sounds decreased. HEART: Rate and Rhythm are regular. First and second heart sounds normal. No murmurs, rubs or gallops. ABDOMEN: Abdominal exam reveals normal bowel sounds. Obese. Soft. EXTREMITITES: 2+ edema. Chronic changes noted. Objective - Vital Signs Vital signs: Vital Signs Temp 98.2 F 11/22/19 20:00 Pulse 99 11/23/19 03:23 Resp 19 11/23/19 03:23 BP 117/64 11/23/19 03:23 Pulse Ox 92 L 11/23/19 08:42 Intake & Output 11/22/19 11/23/19 11/23/19 18:59 06:59 18:59 Intake Total 460 90.167 Output Total 1200 600 Balance -740 90.167 -600 Intake: Intake, IV Titration 100 90.167 Amount Bumetanide 10 mg In 100 90.167 Dextrose 5% in Water 60 ml @ 1 MG/HR 10 mls/hr IV .Q10H [facility] Rx#:[id number] Oral 360 Output: Urine 1200 600 Other: Voiding Method Toilet Toilet # Voids 1 - Labs CBC & Chem 7: 11/17/19 13:18 11/23/19 06:03 Labs: Abnormal Lab Results - Last 24 Hours (Table) 11/22/19 11/22/19 11/22/19 Range/Units 12:08 16:53 21:01 Chloride (98-107) mmol/L Carbon Dioxide (22-30) mmol/L BUN (9-20) mg/dL Creatinine (0.66-1.25) mg/dL POC Glucose (mg/dL) 158 H 112 H 363 H (75-99) mg/dL Magnesium (1.6-2.3) mg/dL 11/23/19 11/23/19 Range/Units 05:28 06:03 Chloride 89 L (98-107) mmol/L Carbon Dioxide 49 H* (22-30) mmol/L BUN 86 H (9-20) mg/dL Creatinine 2.73 H (0.66-1.25) mg/dL POC Glucose (mg/dL) 155 H (75-99) mg/dL Magnesium 2.4 H (1.6-2.3) mg/dL Assessment and Plan Plan: Assessment: 1. Acute kidney injury secondary to ATN secondary to cardiorenal syndrome. Renal function fairly stable. 2. Chronic kidney disease. Recent creatinine in the range of 2.2-2.4. Establish baseline renal function. Etiology is nephrosclerosis as well as diabetic kidney disease. 3. Metabolic alkalosis secondary to diuresis and compensation for underlying respiratory acidosis. 4. Volume overload. 5. Acute on chronic diastolic CHF with moderate tricuspid regurgitation, mitral regurgitation and pulmonary hypertension. 6. Diabetes mellitus. Plan: Maintain Bumex drip. Maintain Diamox 500 mg IV twice daily. Check ABG. 1500 mL fluid restriction. Continue to monitor renal function and urine output. Repeat electrolytes in the morning.
[2019-11-23 12:01] LABS: Glucose,Whole Blood 104 mg/dL (75-99)
[2019-11-23 12:12] LABS: ABG Oxygen Saturation 91.1 % (94-97); ABG PH 7.35 (7.35-7.45); ABG PO2 70 mmHg (83-108); ABG TCO2 49 mmol/L (19-24); Allen Test Performed? Yes
[2019-11-23 12:15] LABS: ABG HCO3 47 mmol/L (21-25); ABG PCO2 85 mmHg (35-45)
[2019-11-23] MEDS: clonazePAM 1 MG TAB PO SCH ×2 (12:29→20:39)
[2019-11-23] MEDS: METOPROLOL TARTRATE 50 MG TAB PO SCH (12:34)
[2019-11-23] MEDS: SPIRONOLACTONE 25 MG TAB PO SCH (12:35)
[2019-11-23] MEDS: ALLOPURINOL 100 MG TAB PO SCH ×2 (12:35→20:40)
[2019-11-23] MEDS: ASPIRIN 81 MG PO SCH (12:35)
[2019-11-23] MEDS: PREGABALIN 100 MG CAP PO SCH ×2 (12:35→20:40)
[2019-11-23] MEDS: HYDROcodone/APAP 7.5-325MG 1 EACH TAB PO PRN (12:35)
[2019-11-23] MEDS: glipiZIDE 5 MG TAB PO SCH (12:35)
[2019-11-23] MEDS: CALCIUM CARBONATE 500 MG CHEWABLE PO SCH (16:35)
[2019-11-23] MEDS: DABIGATRAN 150 MG CAP PO SCH ×2 (16:35→20:40)
[2019-11-23] MEDS: NYSTATIN 100,000 UNIT/GM POWD 15 GM TOPICAL SCH ×2 (16:35→20:40)
[2019-11-23 17:08] LABS: Glucose,Whole Blood 82 mg/dL (75-99)
[2019-11-23] MEDS: ATORVASTATIN 10 MG TAB PO SCH (20:40)
[2019-11-23] MEDS: traZODone HCL 50 MG TAB PO SCH (20:40)
[2019-11-23 20:45] LABS: Glucose,Whole Blood 149 mg/dL (75-99)
[2019-11-24 06:06] LABS: Glucose,Whole Blood 176 mg/dL (75-99)
[2019-11-24] MEDS: BUMETANIDE 10 MG in DEXTROSE 5% IN WATER 60 ML IV SCH ×2 (06:18)
[2019-11-24] MEDS: PANTOPRAZOLE 40 MG TABLET PO SCH ×2 (06:19→17:23)
[2019-11-24] MEDS: INSULIN ASPART (NovoLOG) 100 UNIT/ML VIAL SQ SCH ×4 (06:34→21:11)
[2019-11-24 07:01] LABS: Calcium 8.9 mg/dL (8.4-10.2); Magnesium 2.2 mg/dL (1.6-2.3); Potassium 3.7 mmol/L (3.5-5.1)
[2019-11-24] MEDS: ALLOPURINOL 100 MG TAB PO SCH ×2 (08:14→21:10)
[2019-11-24] MEDS: glipiZIDE 5 MG TAB PO SCH (08:14)
[2019-11-24] MEDS: METOPROLOL TARTRATE 50 MG TAB PO SCH (08:14)
[2019-11-24] MEDS: clonazePAM 1 MG TAB PO SCH ×2 (08:14→21:10)
[2019-11-24] MEDS: SPIRONOLACTONE 25 MG TAB PO SCH (08:14)
[2019-11-24] MEDS: PREGABALIN 100 MG CAP PO SCH ×2 (08:14→21:10)
[2019-11-24] MEDS: CALCIUM CARBONATE 500 MG CHEWABLE PO SCH (08:14)
[2019-11-24] MEDS: ASPIRIN 81 MG PO SCH (08:14)
[2019-11-24] MEDS: SYMBICORT 80-4.5 MCG INHALER INHALATION SCH ×2 (08:15→18:55)
[2019-11-24] MEDS: DABIGATRAN 150 MG CAP PO SCH ×2 (08:15→21:11)
[2019-11-24] MEDS: NYSTATIN 100,000 UNIT/GM POWD 15 GM TOPICAL SCH ×2 (08:16→21:11)
--- NOTE | 2019-11-24 10:30 | P.PN ---
Progress Note - Text Progress Note Date: 11/23/19 Chief Complaint: Easily winded Interval history: This is a 58-year-old patient who follows with visiting physicians Dr. Aramis Saleh. extensive medical history. Chronic stable medical conditions include atrial fibrillation, COPD, diabetes, GERD, hypertension, hyperlipidemia, osteoarthritis, obstructive sleep apnea, bilateral neuropathy, CHF with EF of 60-65%, atrial fibrillation. Patient normally uses a cane around the house.. Lives alone. Patient presents with progressive increasing edema. No fever no chills. Getting is the short winded. Orthopneic. Slight cough. Patient was here in August 2019. Was treated with a Bumex drip. There is tobacco 30 L on that admission. Admitted with CHF exacerbation. Started on Bumex drip. Today-intermittently lethargic. Using BiPAP. Remains in negative fluid balance.. About 7 L in negative fluid to allow. Oral intake is fine. Has been up to the chair. Using cane better. Review of systems: Was done for constitutional, cardiovascular, GI, pulmonary. relevant finding as above. Active Medications Hydrocodone Bitart/Acetaminophen ([place] 7.5-325) 1 each PO TID PRN PRN Reason: MODERATE Pain Last Admin: 11/23/19 12:35 Dose: 1 each Documented by: Acetazolamide Sodium (Diamox) 500 mg IV TID [facility] Last Admin: 11/24/19 08:15 Dose: 500 mg Documented by: Allopurinol (Zyloprim) 100 mg PO BID [facility] Last Admin: 11/24/19 08:14 Dose: 100 mg Documented by: Aspirin (Aspirin) 81 mg PO DAILY [facility] Last Admin: 11/24/19 08:14 Dose: 81 mg Documented by: Atorvastatin Calcium (Lipitor) 10 mg PO HS [facility] Last Admin: 11/23/19 20:40 Dose: 10 mg Documented by: Budesonide/Formoterol Fumarate (Symbicort 80-4.5 Mcg Inhaler) 2 puff INHALATION RT-BID [facility] Last Admin: 11/24/19 08:15 Dose: 2 puff Documented by: Calcium Carbonate/Glycine (Tums) 500 mg PO DAILY [facility] Last Admin: 11/24/19 08:14 Dose: 500 mg Documented by: Clonazepam (Klonopin) 1 mg PO BID [facility] Last Admin: 11/24/19 08:14 Dose: 1 mg Documented by: Dabigatran (Pradaxa) 150 mg PO BID [facility] Last Admin: 11/24/19 08:15 Dose: 150 mg Documented by: Glipizide (Glucotrol) 5 mg PO DAILY [facility] Last Admin: 11/24/19 08:14 Dose: 5 mg Documented by: Bumetanide 10 mg/ Dextrose/ (Water) 100 mls @ 10 mls/hr IV .Q10H [facility] Last Admin: 11/24/19 06:18 Dose: Not Given Documented by: Insulin Aspart (Novolog) 0 unit SQ ACHS [facility]; Protocol Last Admin: 11/24/19 06:34 Dose: 3 unit Documented by: Metoprolol Tartrate (Lopressor) 150 mg PO DAILY [facility] Last Admin: 11/24/19 08:14 Dose: 150 mg Documented by: Naloxone HCl (Narcan) 0.2 mg IV Q2M PRN PRN Reason: Opioid Reversal Nystatin (Mycostatin Powder) 1 applic TOPICAL BID [facility] Last Admin: 11/24/19 08:16 Dose: Not Given Documented by: Pantoprazole Sodium (Protonix) 40 mg PO AC-BID [facility] Last Admin: 11/24/19 06:19 Dose: Not Given Documented by: Pregabalin (Lyrica) 100 mg PO BID [facility] Last Admin: 11/24/19 08:14 Dose: 100 mg Documented by: Spironolactone (Aldactone) 50 mg PO DAILY [facility] Last Admin: 11/24/19 08:14 Dose: 50 mg Documented by: Trazodone HCl (Desyrel) 50 mg PO HS [facility] Last Admin: 11/23/19 20:40 Dose: 50 mg Documented by: Physical examination: VITAL SIGNS: Afebrile, 116, 16, 128/87, 98% on the BiPAP GENERAL: Propped up in bed, with BiPAP tired EYES: Pupils equal. Conjunctiva normal. HEENT: External appearance of nose and ears normal, oral cavity grossly normal. NECK: Short, thick, JVD unable to assess; masses not palpable. HEART: Distant heart sounds,; edema present, but pendular lower abdomen. LUNGS: Respiratory rate increased, distance breath sounds. ABDOMEN: Soft, large pendulous abdomen, some evidence of fungal infection in the groin, nontender, liver spleen not palpable, no masses palpable. PSYCH: Somewhat tired lethargic, difficult to assess. DERMATOLOGICAL: Evidence of flaky skin and venous dermatitis on the lower extremity INVESTIGATIONS, reviewed in the clinical context: Potassium 4.2 bun 86 creatinine 2.73: ABG-pCO2 85 pO2 70 Previous testing White count 8 hemoglobin 9.5 platelets 284 Potassium 4.3 bicarb 42 bun 78 creatinine 2.34 Troponin I 0.065 proBNP 2980 Patient's labs in August 2019 was bun of 56 creatinine 2.36 Chest x-ray film personally reviewed by me-cardiomegaly, pulmonary edema, fluid in the fissure 2-D echocardiogram from January 2019-EF 60-65% with wall motion abnormality EKG tracing personally reviewed by me-atrial fibrillation, rate controlled Assessment: -Acute on chronic congestive heart failure exacerbation from diastolic dysfunction EF 60-65%, remains on Bumex drip, slow to respond -Acute metabolic encephalopathy from CO2 narcosis/respiratory failure -Acute hypoxic and hypercapnic respiratory failure, slow to respond including CO2 narcosis -Persistent atrial fibrillation rate controlled on presentation -Chronic kidney disease stage III probably nephrosclerosis -Morbid obesity BMI 64.3 -COPD -Diabetes mellitus type 2, on oral hypoglycemic -GERD -Hyperlipidemia -Essential hypertension -Chronic medical debility -Obstructive sleep apnea -Diabetic peripheral neuropathy -Stasis dermatitis, bilateral lower extremity -Metabolic alkalosis from diuresis Plan: -Patient remains on IV Bumex and Diamox drip. CO2 is better. On BiPAP today. More lethargic. Showed improve with the BiPAP. Prognosis guarded. follow lites closely.
--- NOTE | 2019-11-24 10:36 | P.PN ---
Subjective Patient is seen in follow-up for acute kidney injury on chronic kidney disease. Edema improving. Maintained on Bumex drip. Bicarb level of 51 today. Currently on BiPAP. Denies chest pain. Oral intake is good. Renal function fairly stable. Vital signs are stable. General: The patient appeared well nourished and normally developed. HEENT: Head exam is unremarkable. Neck is without jugular venous distension. LUNGS: Breath sounds decreased. HEART: Rate and Rhythm are regular. First and second heart sounds normal. No murmurs, rubs or gallops. ABDOMEN: Abdominal exam reveals normal bowel sounds. Obese. Soft. EXTREMITITES: 1+ edema. Wrapped. Objective - Vital Signs Vital signs: Vital Signs Temp 97.4 F L 11/24/19 03:17 Pulse 120 H 11/24/19 08:00 Resp 16 11/24/19 08:00 BP 108/71 11/24/19 08:00 Pulse Ox 88 L 11/24/19 08:00 Intake & Output 11/23/19 11/24/19 11/24/19 18:59 06:59 18:59 Intake Total 100 519.333 Output Total 1999 Balance -1900 519.333 Weight 202.5 kg Intake: Intake, IV Titration 100 39.333 Amount Bumetanide 10 mg In 100 39.333 Dextrose 5% in Water 60 ml @ 1 MG/HR 10 mls/hr IV .Q10H [facility] Rx#:[id number] Oral 480 Output: Urine 1999 Other: Voiding Method Toilet Toilet - Labs CBC & Chem 7: 11/17/19 13:18 11/24/19 06:08 Labs: Abnormal Lab Results - Last 24 Hours (Table) 11/23/19 11/23/19 11/23/19 Range/Units 12:00 12:04 20:43 ABG pCO2 85 H* (35-45) mmHg ABG pO2 70 L (83-108) mmHg ABG HCO3 47 H* (21-25) mmol/L ABG Total CO2 49 H (19-24) mmol/L ABG O2 Saturation 91.1 L (94-97) % Chloride (98-107) mmol/L Carbon Dioxide (22-30) mmol/L BUN (9-20) mg/dL Creatinine (0.66-1.25) mg/dL POC Glucose (mg/dL) 104 H 149 H (75-99) mg/dL 11/24/19 11/24/19 Range/Units 06:04 06:08 ABG pCO2 (35-45) mmHg ABG pO2 (83-108) mmHg ABG HCO3 (21-25) mmol/L ABG Total CO2 (19-24) mmol/L ABG O2 Saturation (94-97) % Chloride 89 L (98-107) mmol/L Carbon Dioxide 51 H* (22-30) mmol/L BUN 84 H (9-20) mg/dL Creatinine 2.68 H (0.66-1.25) mg/dL POC Glucose (mg/dL) 176 H (75-99) mg/dL Assessment and Plan Plan: Assessment: 1. Acute kidney injury secondary to ATN secondary to cardiorenal syndrome. Renal function fairly stable. 2. Chronic kidney disease. Recent creatinine in the range of 2.2-2.4. Establish baseline renal function. Etiology is nephrosclerosis as well as diabetic kidney disease. 3. Metabolic alkalosis secondary to diuresis and compensation for underlying respiratory acidosis. 4. Volume overload. 5. Acute on chronic diastolic CHF with moderate tricuspid regurgitation, mitral regurgitation and pulmonary hypertension. 6. Diabetes mellitus. Plan: Discontinue Bumex drip due to worsening alkalosis. Maintain Diamox 500 mg IV TID. 1500 mL fluid restriction. Continue to monitor renal function and urine output. Repeat electrolytes in the morning.
[2019-11-24 12:16] LABS: Glucose,Whole Blood 104 mg/dL (75-99)
--- NOTE | 2019-11-24 16:16 | P.PN ---
Subjective This is Dena Bragg PA-C dictating a progress note on this patient Case discussed with Dr. Churchill and he agrees with the plan of care HPI/interval history Patient is a 59-year-old male with a history of chronic diastolic CHF, persistent atrial fibrillation, diabetes, hypertension, dyslipidemia who presented with complaints of shortness of breath and weight gain. He was admitted for treatment of CHF exacerbation. He has been diuresing on IV Bumex. We increased his spironolactone. Today nephrology discontinued Bumex due to worsening alkalosis and started Diamox. Patient seen and examined resting in bed, eating his dinner. States his breathing is improving as well as his lower extremity edema. Denies any chest pain. EXAMINATION Patient is afebrile, pulse in the 90s, respirations 16, blood pressure 108/71, oxygen saturation 88% on 2 L nasal cannula Patient seen and examined resting in bed, appears comfortable, in no acute distress Bilateral breath sounds are diminished Heart is irregularly irregular, no audible murmurs Bilateral legs wrapped in Juan Carlos bandages, mild edema REVIEW OF LABS, ECG Labs reviewed, sodium 145, potassium 3.7, carbon dioxide 51, BUN 84, creatinine 2.68 Telemetry reveals persistent atrial fibrillation with rates in the 90s IMPRESSION / ASSESSMENT: Acute on chronic CHF exacerbation secondary to diastolic dysfunction, symptoms improving Persistent atrial fibrillation, rates in the 90s, anticoagulated with pradaxa CKD, nephrology following Diabetes Hypertension Dyslipidemia Hypercapnia PLAN: Continue IV diuresis Continue spironolactone 50 mg daily Continue metoprolol tartrate 150 mg twice a day for rate control Objective - Vital Signs Vital signs: Vital Signs Temp 97.4 F L 11/24/19 03:17 Pulse 91 11/24/19 12:00 Resp 16 11/24/19 16:00 BP 108/71 11/24/19 08:00 Pulse Ox 88 L 11/24/19 08:00 Intake & Output 11/23/19 11/24/19 11/24/19 18:59 06:59 18:59 Intake Total 100 519.333 600 Output Total 1999 Balance -190 519.333 600 Weight 202.5 kg Intake: Intake, IV Titration 100 39.333 Amount Bumetanide 10 mg In 100 39.333 Dextrose 5% in Water 60 ml @ 1 MG/HR 10 mls/hr IV .Q10H [facility] Rx#:[id number] Oral 480 600 Output: Urine 2000 Other: Voiding Method Toilet Toilet Toilet # Voids 500 - Labs CBC & Chem 7: 11/17/19 13:18 11/24/19 06:08 Labs: Abnormal Lab Results - Last 24 Hours (Table) 11/23/19 11/24/19 11/24/19 Range/Units 20:43 06:04 06:08 Chloride 89 L (98-107) mmol/L Carbon Dioxide 51 H* (22-30) mmol/L BUN 84 H (9-20) mg/dL Creatinine 2.68 H (0.66-1.25) mg/dL POC Glucose (mg/dL) 149 H 176 H (75-99) mg/dL 11/24/19 Range/Units 11:59 Chloride (98-107) mmol/L Carbon Dioxide (22-30) mmol/L BUN (9-20) mg/dL Creatinine (0.66-1.25) mg/dL POC Glucose (mg/dL) 104 H (75-99) mg/dL
[2019-11-24 17:11] LABS: Glucose,Whole Blood 99 mg/dL (75-99)
--- NOTE | 2019-11-24 18:19 | P.PN ---
Subjective Progress Note Date: 11/24/19 Principal diagnosis: Acute exacerbation diastolic CHF Persistent atrial fibrillation Patient is a 59-year-old male with a history of chronic diastolic CHF, persistent atrial fibrillation, diabetes, hypertension, dyslipidemia who presented with complaints of shortness of breath and weight gain. He was admitted for treatment of CHF exacerbation. He has been diuresing on IV Bumex. We increased his spironolactone. Today nephrology discontinued Bumex due to worsening alkalosis and started Diamox. Patient seen and examined resting in bed, eating his dinner. States his breathing is improving as well as his lower extremity edema. Objective - Vital Signs Vital signs: Vital Signs Temp 97.4 F L 11/24/19 03:17 Pulse 120 H 11/24/19 08:00 Resp 16 11/24/19 08:00 BP 108/71 11/24/19 08:00 Pulse Ox 88 L 11/24/19 08:00 Intake & Output 11/23/19 11/24/19 11/24/19 18:59 06:59 18:59 Intake Total 100 519.333 Output Total 1999 Balance -1900 519.333 Weight 202.5 kg Intake: Intake, IV Titration 100 39.333 Amount Bumetanide 10 mg In 100 39.333 Dextrose 5% in Water 60 ml @ 1 MG/HR 10 mls/hr IV .Q10H [facility] Rx#:[id number] Oral 480 Output: Urine 2000 Other: Voiding Method Toilet Toilet - Exam GENERAL: Propped up in bed, with BiPAP tired EYES: Pupils equal. Conjunctiva normal. HEENT: External appearance of nose and ears normal, oral cavity grossly normal. NECK: Short, thick, JVD unable to assess; masses not palpable. HEART: Distant heart sounds,; edema present, but pendular lower abdomen. LUNGS: Respiratory rate increased, distance breath sounds. ABDOMEN: Soft, large pendulous abdomen, some evidence of fungal infection in the groin, nontender, liver spleen not palpable, no masses palpable. - Labs CBC & Chem 7: 11/17/19 13:18 11/24/19 06:08 Labs: Abnormal Lab Results - Last 24 Hours (Table) 11/23/19 11/23/19 11/23/19 Range/Units 12:00 12:04 20:43 ABG pCO2 85 H* (35-45) mmHg ABG pO2 70 L (83-108) mmHg ABG HCO3 47 H* (21-25) mmol/L ABG Total CO2 49 H (19-24) mmol/L ABG O2 Saturation 91.1 L (94-97) % Chloride (98-107) mmol/L Carbon Dioxide (22-30) mmol/L BUN (9-20) mg/dL Creatinine (0.66-1.25) mg/dL POC Glucose (mg/dL) 104 H 149 H (75-99) mg/dL 11/24/19 11/24/19 Range/Units 06:04 06:08 ABG pCO2 (35-45) mmHg ABG pO2 (83-108) mmHg ABG HCO3 (21-25) mmol/L ABG Total CO2 (19-24) mmol/L ABG O2 Saturation (94-97) % Chloride 89 L (98-107) mmol/L Carbon Dioxide 51 H* (22-30) mmol/L BUN 84 H (9-20) mg/dL Creatinine 2.68 H (0.66-1.25) mg/dL POC Glucose (mg/dL) 176 H (75-99) mg/dL Assessment and Plan Assessment: Acute on chronic CHF exacerbation secondary to diastolic dysfunction, symptoms improving Persistent atrial fibrillation, rates in the 90s, anticoagulated with pradaxa CKD, nephrology following Diabetes Hypertension Dyslipidemia Hypercapnia PLAN: Continue IV diuresis Continue spironolactone 50 mg daily Continue metoprolol tartrate 150 mg twice a day for rate control
[2019-11-24 20:32] LABS: Glucose,Whole Blood 138 mg/dL (75-99)
[2019-11-24] MEDS: ATORVASTATIN 10 MG TAB PO SCH (21:10)
[2019-11-24] MEDS: traZODone HCL 50 MG TAB PO SCH (21:10)
[2019-11-24] MEDS: HYDROcodone/APAP 7.5-325MG 1 EACH TAB PO PRN (21:17)
[2019-11-25] MEDS: INSULIN ASPART (NovoLOG) 100 UNIT/ML VIAL SQ SCH ×4 (06:25→21:45)
[2019-11-25] MEDS: PANTOPRAZOLE 40 MG TABLET PO SCH ×2 (06:27→17:33)
[2019-11-25 06:38] LABS: Glucose,Whole Blood 125 mg/dL (75-99)
[2019-11-25 06:54] LABS: Anisocytosis Slight; Basophils # (A) 0.1 k/uL (0-0.2); Basophils % (A) 1 %; Eosinophils # (A) 0.2 k/uL (0-0.7); Eosinophils % (A) 3 %; HCT 34.2 % (39.0-53.0); HGB 9.6 gm/dL (13.0-17.5); Hypochromasia Marked; Lymphocytes # (A) 0.8 k/uL (1.0-4.8); Lymphocytes % (A) 9 %; MCH 23.1 pg (25.0-35.0); MCV 82.5 fL (80.0-100.0); Mean Platelet Volume 8.9; Monocytes # (A) 0.7 k/uL (0-1.0); Monocytes % (A) 8 %; Neutrophils # (A) 6.3 k/uL (1.3-7.7); Neutrophils % (A) 76 %; Platelet Count 294 k/uL (150-450); Poikilocytosis Slight; RBC 4.15 m/uL (4.30-5.90); RDW 17.1 % (11.5-15.5); WBC 8.3 k/uL (3.8-10.6)
[2019-11-25 07:37] LABS: Calcium 9.1 mg/dL (8.4-10.2); Magnesium 2.4 mg/dL (1.6-2.3); Potassium 3.8 mmol/L (3.5-5.1)
[2019-11-25] MEDS: CALCIUM CARBONATE 500 MG CHEWABLE PO SCH (09:37)
[2019-11-25] MEDS: DABIGATRAN 150 MG CAP PO SCH ×2 (09:37→21:45)
[2019-11-25] MEDS: glipiZIDE 5 MG TAB PO SCH (09:38)
[2019-11-25] MEDS: ASPIRIN 81 MG PO SCH (09:38)
[2019-11-25] MEDS: PREGABALIN 100 MG CAP PO SCH ×2 (09:38→21:45)
[2019-11-25] MEDS: clonazePAM 1 MG TAB PO SCH ×2 (09:38→21:45)
[2019-11-25] MEDS: METOPROLOL TARTRATE 50 MG TAB PO SCH (09:38)
[2019-11-25] MEDS: SPIRONOLACTONE 25 MG TAB PO SCH (09:38)
[2019-11-25] MEDS: ALLOPURINOL 100 MG TAB PO SCH ×2 (09:38→21:45)
[2019-11-25] MEDS: SYMBICORT 80-4.5 MCG INHALER INHALATION SCH ×2 (11:05→20:27)
[2019-11-25 12:18] LABS: Glucose,Whole Blood 98 mg/dL (75-99)
--- NOTE | 2019-11-25 12:56 | P.PN ---
Subjective Progress Note Date: 11/25/19 Follow-up for acute kidney injury. Objective - Vital Signs Vital signs: Vital Signs Temp 99 F 11/25/19 03:55 Pulse 101 H 11/25/19 03:55 Resp 15 11/25/19 03:58 BP 115/57 11/25/19 03:55 Pulse Ox 95 11/25/19 03:55 Intake & Output 11/24/19 11/25/19 11/25/19 18:59 06:59 18:59 Intake Total 600 740 Output Total 625 375 Balance -25 365 Weight 188.6 kg 188.6 kg Intake: Oral 600 360 Tube Feeding 380 Output: Urine 625 375 Other: Voiding Method Toilet Urinal # Voids 500 1 - Exam No acute distress S1-S2 heard Decreased breath sound at bases Abdomen distended Trace edema - Labs CBC & Chem 7: 11/25/19 05:32 11/25/19 05:32 Labs: Abnormal Lab Results - Last 24 Hours (Table) 11/24/19 11/25/19 11/25/19 Range/Units 20:31 05:32 05:32 RBC 4.15 L (4.30-5.90) m/uL Hgb 9.6 L (13.0-17.5) gm/dL Hct 34.2 L (39.0-53.0) % MCH 23.1 L (25.0-35.0) pg MCHC 28.0 L (31.0-37.0) g/dL RDW 17.1 H (11.5-15.5) % Lymphocytes # 0.8 L (1.0-4.8) k/uL Chloride 90 L (98-107) mmol/L Carbon Dioxide 47 H* (22-30) mmol/L BUN 80 H (9-20) mg/dL Creatinine 2.37 H (0.66-1.25) mg/dL POC Glucose (mg/dL) 138 H (75-99) mg/dL Magnesium 2.4 H (1.6-2.3) mg/dL 11/25/19 Range/Units 06:23 RBC (4.30-5.90) m/uL Hgb (13.0-17.5) gm/dL Hct (39.0-53.0) % MCH (25.0-35.0) pg MCHC (31.0-37.0) g/dL RDW (11.5-15.5) % Lymphocytes # (1.0-4.8) k/uL Chloride (98-107) mmol/L Carbon Dioxide (22-30) mmol/L BUN (9-20) mg/dL Creatinine (0.66-1.25) mg/dL POC Glucose (mg/dL) 125 H (75-99) mg/dL Magnesium (1.6-2.3) mg/dL Assessment and Plan Assessment: #1 acute kidney injury secondary to cardiorenal syndrome/ischemic ATN. #2 chronic kidney disease stage III with a baseline creatinine of 2.2-2.4 MG per DL. #3 metabolic acidosis secondary to respiratory acidosis and also component of diuresis #4 edema #5 diastolic CHF #6 diabetes Plan: #1 continue acetazolamide. #2 continue to hold diuretics for now #3 labs in the morning
[2019-11-25] MEDS: NYSTATIN 100,000 UNIT/GM POWD 15 GM TOPICAL SCH ×2 (13:20→21:47)
--- NOTE | 2019-11-25 13:22 | P.PN ---
Subjective Progress Note Date: 11/25/19 the patient is currently resting comfortably in bed. He has been sleeping on BiPAP. He denies any chest pain, chest pressure, palpitations, or shortness of breath. Telemetry monitoring shows persistent atrial fibrillation with heart rates in the 90s to low 100s. vital signs GENERAL: Well-appearing, well-nourished and in no acute distress. NECK: Supple without JVD or thyromegaly. LUNGS: Breath sounds diminished bilaterally. Respiration equal and unlabored. No wheezes, rales or rhonchi. HEART: Irregular rate and rhythm without murmurs, rubs or gallops. S1 and S2 heard. EXTREMITIES: Normal range of motion. No clubbing or cyanosis. Peripheral pulses intact and strong. +2 lower extremity edema, currently wrapped in Juan Carlos bandages Labs:WBC 8.3, hemoglobin 9.6, medical 34.2, platelet 294, sodium 144, potassium 3.8, CO2 47, BUN 80, creatinine 2.37, magnesium 2.4 Impression: #1 acute on chronic diastolic heart failure #2 persistent atrial fibrillation, anticoagulated with Pradaxa #3 chronic kidney disease, GFR 29 #4 diabetes #5 hypertension #6 hypercapnia Plan: continue current medication regimen. No changes from the cardiac standpoint. Objective - Vital Signs Vital signs: Vital Signs Temp 97.9 F 11/25/19 08:00 Pulse 101 H 11/25/19 08:00 Resp 15 11/25/19 08:00 BP 113/72 11/25/19 08:00 Pulse Ox 95 11/25/19 03:55 Intake & Output 11/24/19 11/25/19 11/25/19 18:59 06:59 18:59 Intake Total 600 740 Output Total 625 375 Balance -25 365 Weight 188.6 kg 188.6 kg Intake: Oral 600 360 Tube Feeding 380 Output: Urine 625 375 Other: Voiding Method Toilet Urinal Urinal # Voids 500 1 - Labs CBC & Chem 7: 11/25/19 05:32 11/25/19 05:32 Labs: Abnormal Lab Results - Last 24 Hours (Table) 11/24/19 11/25/19 11/25/19 Range/Units 20:31 05:32 05:32 RBC 4.15 L (4.30-5.90) m/uL Hgb 9.6 L (13.0-17.5) gm/dL Hct 34.2 L (39.0-53.0) % MCH 23.1 L (25.0-35.0) pg MCHC 28.0 L (31.0-37.0) g/dL RDW 17.1 H (11.5-15.5) % Lymphocytes # 0.8 L (1.0-4.8) k/uL Chloride 90 L (98-107) mmol/L Carbon Dioxide 47 H* (22-30) mmol/L BUN 80 H (9-20) mg/dL Creatinine 2.37 H (0.66-1.25) mg/dL POC Glucose (mg/dL) 138 H (75-99) mg/dL Magnesium 2.4 H (1.6-2.3) mg/dL 11/25/19 Range/Units 06:23 RBC (4.30-5.90) m/uL Hgb (13.0-17.5) gm/dL Hct (39.0-53.0) % MCH (25.0-35.0) pg MCHC (31.0-37.0) g/dL RDW (11.5-15.5) % Lymphocytes # (1.0-4.8) k/uL Chloride (98-107) mmol/L Carbon Dioxide (22-30) mmol/L BUN (9-20) mg/dL Creatinine (0.66-1.25) mg/dL POC Glucose (mg/dL) 125 H (75-99) mg/dL Magnesium (1.6-2.3) mg/dL
[2019-11-25] MEDS: HYDROcodone/APAP 7.5-325MG 1 EACH TAB PO PRN (13:48)
--- NOTE | 2019-11-25 16:01 | P.PN ---
Subjective Progress Note Date: 11/25/19 Principal diagnosis: Acute exacerbation diastolic CHF Persistent atrial fibrillation Patient is a 59-year-old male with a history of chronic diastolic CHF, persistent atrial fibrillation, diabetes, hypertension, dyslipidemia who presented with complaints of shortness of breath and weight gain. He was admitted for treatment of CHF exacerbation. He has been diuresing on IV Bumex. We increased his spironolactone. Today nephrology discontinued Bumex due to worsening alkalosis and started Diamox. Patient seen and examined resting in bed, eating his dinner. States his breathing is improving as well as his lower extremity edema. 11/25/2019 Patient is seen and evaluated in room at bedside; he is currently off BiPAP; IV Bumex was discontinued and patient is started on Diamox due to worsening alkalosis; patient remains in persistent atrial fibrillation with anticoagulation therapy on board; no changes recommended by cardiology service at this time Objective - Vital Signs Vital signs: Vital Signs Temp 99 F 11/25/19 03:55 Pulse 101 H 11/25/19 03:55 Resp 15 11/25/19 03:58 BP 115/57 11/25/19 03:55 Pulse Ox 95 11/25/19 03:55 Intake & Output 11/24/19 11/25/19 11/25/19 18:59 06:59 18:59 Intake Total 600 740 Output Total 625 375 Balance -25 365 Weight 188.6 kg 188.6 kg Intake: Oral 600 360 Tube Feeding 380 Output: Urine 625 375 Other: Voiding Method Toilet Urinal # Voids 500 1 - Exam GENERAL: Propped up in bed, with BiPAP tired EYES: Pupils equal. Conjunctiva normal. HEENT: External appearance of nose and ears normal, oral cavity grossly normal. NECK: Short, thick, JVD unable to assess; masses not palpable. HEART: Distant heart sounds,; edema present, but pendular lower abdomen. LUNGS: Respiratory rate increased, distance breath sounds. ABDOMEN: Soft, large pendulous abdomen, some evidence of fungal infection in the groin, nontender, liver spleen not palpable, no masses palpable. - Labs CBC & Chem 7: 11/25/19 05:32 11/25/19 05:32 Labs: Abnormal Lab Results - Last 24 Hours (Table) 11/24/19 11/24/19 11/25/19 Range/Units 11:59 20:31 05:32 RBC (4.30-5.90) m/uL Hgb (13.0-17.5) gm/dL Hct (39.0-53.0) % MCH (25.0-35.0) pg MCHC (31.0-37.0) g/dL RDW (11.5-15.5) % Lymphocytes # (1.0-4.8) k/uL Chloride 90 L (98-107) mmol/L Carbon Dioxide 47 H* (22-30) mmol/L BUN 80 H (9-20) mg/dL Creatinine 2.37 H (0.66-1.25) mg/dL POC Glucose (mg/dL) 104 H 138 H (75-99) mg/dL Magnesium 2.4 H (1.6-2.3) mg/dL 11/25/19 11/25/19 Range/Units 05:32 06:23 RBC 4.15 L (4.30-5.90) m/uL Hgb 9.6 L (13.0-17.5) gm/dL Hct 34.2 L (39.0-53.0) % MCH 23.1 L (25.0-35.0) pg MCHC 28.0 L (31.0-37.0) g/dL RDW 17.1 H (11.5-15.5) % Lymphocytes # 0.8 L (1.0-4.8) k/uL Chloride (98-107) mmol/L Carbon Dioxide (22-30) mmol/L BUN (9-20) mg/dL Creatinine (0.66-1.25) mg/dL POC Glucose (mg/dL) 125 H (75-99) mg/dL Magnesium (1.6-2.3) mg/dL Assessment and Plan Assessment: Acute on chronic CHF exacerbation secondary to diastolic dysfunction, symptoms improving Persistent atrial fibrillation, rates in the 90s, anticoagulated with pradaxa CKD, nephrology following Diabetes Hypertension Dyslipidemia Hypercapnia PLAN: Continue IV diuresis Continue spironolactone 50 mg daily Continue metoprolol tartrate 150 mg twice a day for rate control
[2019-11-25 17:22] LABS: Glucose,Whole Blood 92 mg/dL (75-99)
[2019-11-25 20:19] LABS: Glucose,Whole Blood 168 mg/dL (75-99)
[2019-11-25] MEDS: ATORVASTATIN 10 MG TAB PO SCH (21:45)
[2019-11-25] MEDS: traZODone HCL 50 MG TAB PO SCH (21:45)
[2019-11-26] MEDS: INSULIN ASPART (NovoLOG) 100 UNIT/ML VIAL SQ SCH ×4 (06:22→20:50)
[2019-11-26] MEDS: PANTOPRAZOLE 40 MG TABLET PO SCH ×2 (06:36→17:30)
[2019-11-26 06:44] LABS: Anisocytosis Slight; Basophils # (A) 0.1 k/uL (0-0.2); Basophils % (A) 1 %; Eosinophils # (A) 0.2 k/uL (0-0.7); Eosinophils % (A) 2 %; HCT 33.8 % (39.0-53.0); HGB 9.5 gm/dL (13.0-17.5); Hypochromasia Marked; Lymphocytes # (A) 0.7 k/uL (1.0-4.8); Lymphocytes % (A) 7 %; MCH 22.9 pg (25.0-35.0); MCV 81.8 fL (80.0-100.0); Mean Platelet Volume 8.6; Monocytes # (A) 0.8 k/uL (0-1.0); Monocytes % (A) 8 %; Neutrophils # (A) 7.4 k/uL (1.3-7.7); Neutrophils % (A) 78 %; Platelet Count 245 k/uL (150-450); Poikilocytosis Slight; RBC 4.13 m/uL (4.30-5.90); RDW 17.7 % (11.5-15.5); WBC 9.5 k/uL (3.8-10.6)
[2019-11-26 06:48] LABS: Glucose,Whole Blood 113 mg/dL (75-99)
[2019-11-26 06:58] LABS: Calcium 9.2 mg/dL (8.4-10.2); Potassium 3.7 mmol/L (3.5-5.1)
[2019-11-26] MEDS: SYMBICORT 80-4.5 MCG INHALER INHALATION SCH ×2 (07:27→22:00)
[2019-11-26] MEDS: PREGABALIN 100 MG CAP PO SCH ×2 (07:41→21:02)
[2019-11-26] MEDS: METOPROLOL TARTRATE 50 MG TAB PO SCH (07:41)
[2019-11-26] MEDS: HYDROcodone/APAP 7.5-325MG 1 EACH TAB PO PRN (07:42)
[2019-11-26] MEDS: SPIRONOLACTONE 25 MG TAB PO SCH (07:42)
[2019-11-26] MEDS: CALCIUM CARBONATE 500 MG CHEWABLE PO SCH (07:42)
[2019-11-26] MEDS: ASPIRIN 81 MG PO SCH (07:42)
[2019-11-26] MEDS: clonazePAM 1 MG TAB PO SCH ×2 (07:42→21:02)
[2019-11-26] MEDS: DABIGATRAN 150 MG CAP PO SCH ×2 (07:42→21:23)
[2019-11-26] MEDS: ALLOPURINOL 100 MG TAB PO SCH ×2 (07:42→21:02)
[2019-11-26] MEDS: glipiZIDE 5 MG TAB PO SCH (07:42)
[2019-11-26] MEDS: NYSTATIN 100,000 UNIT/GM POWD 15 GM TOPICAL SCH ×2 (12:00→21:23)
--- NOTE | 2019-11-26 12:05 | P.PN ---
Subjective Progress Note Date: 11/26/19 Follow-up for acute kidney injury. Objective - Vital Signs Vital signs: Vital Signs Temp 97.7 F 11/25/19 20:00 Pulse 95 11/26/19 04:00 Resp 17 11/26/19 04:00 BP 100/57 11/26/19 04:00 Pulse Ox 92 L 11/26/19 07:27 Intake & Output 11/25/19 11/26/19 11/26/19 18:59 06:59 18:59 Intake Total 300 Output Total 500 1800 Balance -200 -1800 Weight 188.6 kg 146.7 kg Intake: Oral 300 Output: Urine 500 1800 Other: Voiding Method Urinal Urinal Incontinent Incontinent # Voids 1 - Exam No acute distress S1-S2 heard Decreased breath sound at bases Abdomen distended Trace edema - Labs CBC & Chem 7: 11/26/19 06:07 11/26/19 06:07 Labs: Abnormal Lab Results - Last 24 Hours (Table) 11/25/19 11/26/19 11/26/19 Range/Units 20:17 06:07 06:07 RBC 4.13 L (4.30-5.90) m/uL Hgb 9.5 L (13.0-17.5) gm/dL Hct 33.8 L (39.0-53.0) % MCH 22.9 L (25.0-35.0) pg MCHC 28.0 L (31.0-37.0) g/dL RDW 17.7 H (11.5-15.5) % Lymphocytes # 0.7 L (1.0-4.8) k/uL Chloride 93 L (98-107) mmol/L Carbon Dioxide 46 H* (22-30) mmol/L BUN 73 H (9-20) mg/dL Creatinine 2.26 H (0.66-1.25) mg/dL POC Glucose (mg/dL) 168 H (75-99) mg/dL 11/26/19 Range/Units 06:21 RBC (4.30-5.90) m/uL Hgb (13.0-17.5) gm/dL Hct (39.0-53.0) % MCH (25.0-35.0) pg MCHC (31.0-37.0) g/dL RDW (11.5-15.5) % Lymphocytes # (1.0-4.8) k/uL Chloride (98-107) mmol/L Carbon Dioxide (22-30) mmol/L BUN (9-20) mg/dL Creatinine (0.66-1.25) mg/dL POC Glucose (mg/dL) 113 H (75-99) mg/dL Assessment and Plan Assessment: #1 acute kidney injury secondary to cardiorenal syndrome/ischemic ATN. #2 chronic kidney disease stage III with a baseline creatinine of 2.2-2.4 MG per DL. #3 metabolic alkalosis secondary to diuretics and also component of respiratory alkalosis #4 edema #5 diastolic CHF #6 diabetes Plan: #1 continue acetazolamide and hold further diuretics. #2 labs in the morning
[2019-11-26 12:23] VITALS: BMI 42.6
[2019-11-26 12:53] LABS: Glucose,Whole Blood 82 mg/dL (75-99)
--- NOTE | 2019-11-26 13:15 | P.PN ---
Subjective Progress Note Date: 11/26/19 The patient is currently resting comfortably up in the chair with his BiPAP in place. He states his breathing has gotten better. He denies any chest pain, chest pressure, palpitations, dizziness, or lightheadedness. Telemetry reading show his A. fib well controlled in the 90s. Vital signs show pulse oximetry 95% and blood pressure 100/57. 11/25/2019 the patient is currently resting comfortably in bed. He has been sleeping on BiPAP. He denies any chest pain, chest pressure, palpitations, or shortness of breath. Telemetry monitoring shows persistent atrial fibrillation with heart rates in the 90s to low 100s. vital signs GENERAL: Well-appearing, well-nourished and in no acute distress. NECK: Supple without JVD or thyromegaly. LUNGS: Breath sounds diminished bilaterally. Respiration equal and unlabored. No wheezes, rales or rhonchi. HEART: Irregular rate and rhythm without murmurs, rubs or gallops. S1 and S2 heard. EXTREMITIES: Normal range of motion. No clubbing or cyanosis. Peripheral pulses intact and strong. +2 lower extremity edema, currently wrapped in Juan Carlos bandages Labs: WBC 9.5, hemoglobin 9.5, hct 33.8, platelet 245, sodium 144, potassium 3.7, CO2 46, BUN 73, creatinine 2.26. Impression: #1 acute on chronic diastolic heart failure #2 persistent atrial fibrillation, anticoagulated with Pradaxa #3 chronic kidney disease, GFR 29 #4 diabetes #5 hypertension #6 hypercapnia Plan: Continue current medication regimen. No changes from the cardiac standpoint, and therefore we will be signing off on this patient. Objective - Vital Signs Vital signs: Vital Signs Temp 97.7 F 11/25/19 20:00 Pulse 95 11/26/19 04:00 Resp 17 11/26/19 04:00 BP 100/57 11/26/19 04:00 Pulse Ox 92 L 11/26/19 07:27 Intake & Output 11/25/19 11/26/19 11/26/19 18:59 06:59 18:59 Intake Total 300 Output Total 500 1800 Balance -200 -1800 Weight 188.6 kg 146.7 kg 146.7 kg Intake: Oral 300 Output: Urine 500 1800 Other: Voiding Method Urinal Urinal Incontinent Incontinent # Voids 1 - Labs CBC & Chem 7: 11/26/19 06:07 11/26/19 06:07 Labs: Abnormal Lab Results - Last 24 Hours (Table) 11/25/19 11/26/19 11/26/19 Range/Units 20:17 06:07 06:07 RBC 4.13 L (4.30-5.90) m/uL Hgb 9.5 L (13.0-17.5) gm/dL Hct 33.8 L (39.0-53.0) % MCH 22.9 L (25.0-35.0) pg MCHC 28.0 L (31.0-37.0) g/dL RDW 17.7 H (11.5-15.5) % Lymphocytes # 0.7 L (1.0-4.8) k/uL Chloride 93 L (98-107) mmol/L Carbon Dioxide 46 H* (22-30) mmol/L BUN 73 H (9-20) mg/dL Creatinine 2.26 H (0.66-1.25) mg/dL POC Glucose (mg/dL) 168 H (75-99) mg/dL 11/26/19 Range/Units 06:21 RBC (4.30-5.90) m/uL Hgb (13.0-17.5) gm/dL Hct (39.0-53.0) % MCH (25.0-35.0) pg MCHC (31.0-37.0) g/dL RDW (11.5-15.5) % Lymphocytes # (1.0-4.8) k/uL Chloride (98-107) mmol/L Carbon Dioxide (22-30) mmol/L BUN (9-20) mg/dL Creatinine (0.66-1.25) mg/dL POC Glucose (mg/dL) 113 H (75-99) mg/dL
--- NOTE | 2019-11-26 15:06 | P.PN ---
Subjective Progress Note Date: 11/26/19 Principal diagnosis: Acute exacerbation diastolic CHF Persistent atrial fibrillation Patient is a 59-year-old male with a history of chronic diastolic CHF, persistent atrial fibrillation, diabetes, hypertension, dyslipidemia who presented with complaints of shortness of breath and weight gain. He was admitted for treatment of CHF exacerbation. He has been diuresing on IV Bumex. We increased his spironolactone. Today nephrology discontinued Bumex due to worsening alkalosis and started Diamox. Patient seen and examined resting in bed, eating his dinner. States his breathing is improving as well as his lower extremity edema. 11/25/2019 Patient is seen and evaluated in room at bedside; he is currently off BiPAP; IV Bumex was discontinued and patient is started on Diamox due to worsening alkalosis; patient remains in persistent atrial fibrillation with anticoagulation therapy on board; no changes recommended by cardiology service at this time 11/26/2019 Patient is seen and evaluated sitting up in a bedside chair; just came off BiPAP; patient reports improvement in breathing with SpO2 of greater than 92%; patient complaints of episodes of severe muscle cramps Patient has been taken off IV diuretics due to worsening alkalosis; nephrology is following and recommending to continue with Diamox and continue to hold diuretic therapy; renal function is improving from a creatinine of 2.37 yesterday down to 2.26 this morning; cardiology is recommending to continue with current treatment and has signed off We will transfer patient to general medical floor for telemetry Objective - Vital Signs Vital signs: Vital Signs Temp 97.7 F 11/25/19 20:00 Pulse 95 11/26/19 04:00 Resp 17 11/26/19 04:00 BP 100/57 11/26/19 04:00 Pulse Ox 92 L 11/26/19 07:27 Intake & Output 11/25/19 11/26/19 11/26/19 18:59 06:59 18:59 Intake Total 300 Output Total 500 1800 Balance -200 -1800 Weight 188.6 kg 146.7 kg Intake: Oral 300 Output: Urine 500 1800 Other: Voiding Method Urinal Urinal Incontinent Incontinent # Voids 1 - Exam GENERAL: Propped up in bed, with BiPAP tired EYES: Pupils equal. Conjunctiva normal. HEENT: External appearance of nose and ears normal, oral cavity grossly normal. NECK: Short, thick, JVD unable to assess; masses not palpable. HEART: Distant heart sounds,; edema present, but pendular lower abdomen. LUNGS: Respiratory rate increased, distance breath sounds. ABDOMEN: Soft, large pendulous abdomen, some evidence of fungal infection in the groin, nontender, liver spleen not palpable, no masses palpable. - Labs CBC & Chem 7: 11/26/19 06:07 11/26/19 06:07 Labs: Abnormal Lab Results - Last 24 Hours (Table) 11/25/19 11/26/19 11/26/19 Range/Units 20:17 06:07 06:07 RBC 4.13 L (4.30-5.90) m/uL Hgb 9.5 L (13.0-17.5) gm/dL Hct 33.8 L (39.0-53.0) % MCH 22.9 L (25.0-35.0) pg MCHC 28.0 L (31.0-37.0) g/dL RDW 17.7 H (11.5-15.5) % Lymphocytes # 0.7 L (1.0-4.8) k/uL Chloride 93 L (98-107) mmol/L Carbon Dioxide 46 H* (22-30) mmol/L BUN 73 H (9-20) mg/dL Creatinine 2.26 H (0.66-1.25) mg/dL POC Glucose (mg/dL) 168 H (75-99) mg/dL 11/26/19 Range/Units 06:21 RBC (4.30-5.90) m/uL Hgb (13.0-17.5) gm/dL Hct (39.0-53.0) % MCH (25.0-35.0) pg MCHC (31.0-37.0) g/dL RDW (11.5-15.5) % Lymphocytes # (1.0-4.8) k/uL Chloride (98-107) mmol/L Carbon Dioxide (22-30) mmol/L BUN (9-20) mg/dL Creatinine (0.66-1.25) mg/dL POC Glucose (mg/dL) 113 H (75-99) mg/dL Assessment and Plan Assessment: Acute on chronic CHF exacerbation secondary to diastolic dysfunction, symptoms improving Persistent atrial fibrillation, rates in the 90s, anticoagulated with pradaxa CKD, nephrology following Diabetes Hypertension Dyslipidemia Hypercapnia PLAN: Continue IV diuresis Continue spironolactone 50 mg daily Continue metoprolol tartrate 150 mg twice a day for rate control
[2019-11-26 16:59] LABS: Glucose,Whole Blood 94 mg/dL (75-99)
[2019-11-26 20:17] LABS: Glucose,Whole Blood 85 mg/dL (75-99)
[2019-11-26] MEDS: ATORVASTATIN 10 MG TAB PO SCH (21:02)
[2019-11-26] MEDS: traZODone HCL 50 MG TAB PO SCH (21:02)
[2019-11-27 07:03] LABS: Anisocytosis Slight; Basophils # (A) 0.1 k/uL (0-0.2); Basophils % (A) 1 %; Eosinophils # (A) 0.3 k/uL (0-0.7); Eosinophils % (A) 3 %; HCT 33.6 % (39.0-53.0); HGB 9.3 gm/dL (13.0-17.5); Hypochromasia Marked; Lymphocytes # (A) 0.7 k/uL (1.0-4.8); Lymphocytes % (A) 9 %; MCH 22.6 pg (25.0-35.0); MCHC 27.6 g/dL (31.0-37.0); MCV 82.1 fL (80.0-100.0); Monocytes # (A) 0.8 k/uL (0-1.0); Monocytes % (A) 9 %; Neutrophils % (A) 74 %; Platelet Count 207 k/uL (150-450); Poikilocytosis Slight; RBC 4.09 m/uL (4.30-5.90); RDW 17.8 % (11.5-15.5); WBC 8.2 k/uL (3.8-10.6)
[2019-11-27 07:52] LABS: Glucose,Whole Blood 113 mg/dL (75-99)
[2019-11-27] MEDS: SYMBICORT 80-4.5 MCG INHALER INHALATION SCH ×2 (09:15→18:58)
[2019-11-27] MEDS: CALCIUM CARBONATE 500 MG CHEWABLE PO SCH (09:38)
[2019-11-27] MEDS: METOPROLOL TARTRATE 50 MG TAB PO SCH (09:38)
[2019-11-27] MEDS: ASPIRIN 81 MG PO SCH (09:39)
[2019-11-27] MEDS: SPIRONOLACTONE 25 MG TAB PO SCH (09:39)
[2019-11-27] MEDS: PANTOPRAZOLE 40 MG TABLET PO SCH ×2 (09:41→17:41)
[2019-11-27] MEDS: PREGABALIN 100 MG CAP PO SCH ×2 (09:41→21:49)
[2019-11-27] MEDS: HYDROcodone/APAP 7.5-325MG 1 EACH TAB PO PRN ×2 (09:41→21:48)
[2019-11-27] MEDS: clonazePAM 1 MG TAB PO SCH ×2 (09:41→21:49)
[2019-11-27] MEDS: ALLOPURINOL 100 MG TAB PO SCH ×2 (09:41→21:49)
[2019-11-27] MEDS: glipiZIDE 5 MG TAB PO SCH (09:41)
[2019-11-27] MEDS: DABIGATRAN 150 MG CAP PO SCH ×2 (09:42→21:49)
[2019-11-27] MEDS: INSULIN ASPART (NovoLOG) 100 UNIT/ML VIAL SQ SCH ×4 (09:59→21:24)
[2019-11-27] MEDS: NYSTATIN 100,000 UNIT/GM POWD 15 GM TOPICAL SCH ×2 (10:01→21:50)
[2019-11-27 11:49] LABS: Glucose,Whole Blood 93 mg/dL (75-99)
--- NOTE | 2019-11-27 16:40 | XR ---
EXAMINATION TYPE: XR chest 1V portable DATE OF EXAM: 11/27/2019 CLINICAL HISTORY: Difficulty breathing and CHF progress study. TECHNIQUE: Single AP portable upright view of the chest is obtained. COMPARISON: Chest x-ray from 6 days earlier FINDINGS: Persistent cardiomegaly. Proximal mild central vascular congestion is improved from prior. No new pleural effusion or pneumothorax seen. Osseous structures are intact. IMPRESSION: There is cardiomegaly with perhaps mild central vascular congestion though this is noted improved from prior study. No new pleural effusion or focal infiltrate noted.
[2019-11-27 16:42] LABS: Glucose,Whole Blood 74 mg/dL (75-99)
[2019-11-27 20:38] LABS: Glucose,Whole Blood 96 mg/dL (75-99)
--- NOTE | 2019-11-27 21:23 | PN ---
PROGRESS NOTE DATE OF SERVICE: 11/27/2019 This 59-year-old gentleman with a past medical history of multiple medical problems was admitted with shortness of breath, possible CHF acute exacerbation, acute on chronic diastolic dysfunction. The patient also had chronic kidney disease. Nephrology following the patient closely. The creatinine is 2.26 at this time, which is slightly improved but still high. The patient also had some change in mental status also. Patient being monitored at this time. The patient is complaining of severe aches and pains as well. PAST MEDICAL HISTORY: Reviewed. REVIEW OF SYSTEMS: Cardiovascular system: No angina or palpitations. Respiratory: As mentioned earlier. GI: As mentioned earlier. : No dysuria. CENTRAL NERVOUS SYSTEM: No numbness or weakness. CURRENT MEDICATIONS: Reviewed and include: 1. [place] 7.5 t.i.d. p.r.n. 2. Diamox 500 mg IV t.i.d. 3. Zyloprim 100 mg p.o. b.i.d. 4. Aspirin 81 mg daily. 5. Lipitor 10 mg q.h.s. 6. Symbicort 80/4.5 two puffs b.i.d. 7. Klonopin 1 mg p.o. b.i.d. 8. Pradaxa 150 mg p.o. b.i.d. 9. Glucotrol 5 mg p.o. daily. 10.Lopressor. 11.Narcan. 12.Protonix. 13.Lyrica. 14.Aldactone. 15.Desyrel. PHYSICAL EXAM: Patient is alert, oriented x2. Pulse 101. Blood pressure 114/75, respirations 16, temperature 97.9, pulse ox 91 percent on 2 L. HEENT: Conjunctivae normal. NECK: No JVD. CARDIOVASCULAR: S1, S2 muffled. RESPIRATORY: Breath sounds diminished in the bases. Bilateral scattered rhonchi and crackles. ABDOMEN: Soft, nontender. No mass palpable. LEGS: No edema. No swelling. NERVOUS SYSTEM: Higher functions as mentioned earlier. Moves all four limbs. Mild diffuse weakness. LYMPHATICS no lymph nodes palpable in the neck, axilla or groin. SKIN: No ulcer, rashes or bleeding. JOINTS: No active deforming arthropathy. LAB STUDIES: WBC 8.2, hemoglobin 9.3. Sodium 140, potassium 3.7. Creatinine is 2.26. ASSESSMENT: 1. Shortness of breath with possible congestive heart failure exacerbation with acute on chronic diastolic dysfunction. 2. Chronic kidney disease, stage III. 3. Diabetes mellitus type 2. 4. Hypertension. 5. Hyperlipidemia. 6. Hypercapnia. 7. Morbid obesity, BMI of 42.7. 8. Gait dysfunction. 9. Anemia, normocytic anemia of chronic disease. 10.History of gastroesophageal reflux disease. 11.History of hyperlipidemia. 12.History of sleep apnea. 13.History of peripheral neuropathy. 14.History of MRSA. 15.History of anxiety. 16.Remote history of nicotine dependence. RECOMMENDATIONS AND DISCUSSION: In this 59-year-old gentleman who presented with multiple complex medical issues, at this time, I recommend to continue the current medications, management and symptomatic treatment. Otherwise, continue with PT/OT evaluation, possible ECF rehab. Avoid nephrotoxic medications. See the rest of the medications. I would also recommend a chest x-ray to ensure normalcy. Increase ambulation. Guarded prognosis. Further recommendations to follow. MMMARITZA / SANGN: [id number] /
--- NOTE | 2019-11-27 21:29 | PN ---
PROGRESS NOTE Patient is seen for followup for acute kidney injury. Renal function is fairly stable and somewhat improved with creatinine down to about 2.2 yesterday from 2.7 at peak. Currently patient is not on any diuretics or IV fluids. PHYSICAL EXAMINATION: On examination, blood pressure this morning was 114/72, heart rate of 100 per minute, patient is afebrile. Examination of the heart S1, S2. Examination of the lungs, bilateral breath sounds are heard. Abdomen is soft, nontender. Examination lower extremities shows edema bilaterally. 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 LABS: Show sodium 144, potassium 3.7, CO2 is 46, BUN 73, creatinine 2.26, hemoglobin 9.5 g/dL today. ASSESSMENT: 1. Acute kidney injury, cardiorenal syndrome/ischemic acute tubular necrosis, slightly improved, overall stable. Diuretics on hold. 2. Chronic kidney disease stage IV. Baseline creatinine 2.2-2.4. 3. Metabolic alkalosis secondary to recent diuresis. 4. Diastolic heart failure. 5. Type 2 diabetes. 6. Volume overload. PLAN: Repeat labs in a.m. and continue with the Diamox for now. MMODL / IJN: [id number] /
[2019-11-27] MEDS: ATORVASTATIN 10 MG TAB PO SCH (21:50)
[2019-11-27] MEDS: traZODone HCL 50 MG TAB PO SCH (21:50)
[2019-11-28] MEDS: HYDROcodone/APAP 7.5-325MG 1 EACH TAB PO PRN (05:04)
[2019-11-28 07:11] LABS: Glucose,Whole Blood 120 mg/dL (75-99)
[2019-11-28 07:54] LABS: Anisocytosis Slight; Basophils % (A) 1 %; Eosinophils # (A) 0.2 k/uL (0-0.7); Eosinophils % (A) 3 %; HCT 33.7 % (39.0-53.0); HGB 9.3 gm/dL (13.0-17.5); Hypochromasia Marked; Lymphocytes # (A) 0.6 k/uL (1.0-4.8); Lymphocytes % (A) 8 %; MCH 23.1 pg (25.0-35.0); MCHC 27.6 g/dL (31.0-37.0); MCV 83.4 fL (80.0-100.0); Mean Platelet Volume 7.7; Monocytes # (A) 0.7 k/uL (0-1.0); Monocytes % (A) 10 %; Neutrophils # (A) 5.7 k/uL (1.3-7.7); Neutrophils % (A) 75 %; Platelet Count 214 k/uL (150-450); Poikilocytosis Slight; RBC 4.04 m/uL (4.30-5.90); WBC 7.6 k/uL (3.8-10.6)
[2019-11-28] MEDS: INSULIN ASPART (NovoLOG) 100 UNIT/ML VIAL SQ SCH ×4 (08:03→20:39)
[2019-11-28] MEDS: SYMBICORT 80-4.5 MCG INHALER INHALATION SCH ×2 (08:15→19:17)
[2019-11-28 08:19] LABS: Calcium 9.1 mg/dL (8.4-10.2); Potassium 3.7 mmol/L (3.5-5.1)
[2019-11-28] MEDS: CALCIUM CARBONATE 500 MG CHEWABLE PO SCH (08:40)
[2019-11-28] MEDS: METOPROLOL TARTRATE 50 MG TAB PO SCH (08:40)
[2019-11-28] MEDS: glipiZIDE 5 MG TAB PO SCH (08:41)
[2019-11-28] MEDS: DABIGATRAN 150 MG CAP PO SCH ×2 (08:41→20:45)
[2019-11-28] MEDS: ASPIRIN 81 MG PO SCH (08:41)
[2019-11-28] MEDS: PANTOPRAZOLE 40 MG TABLET PO SCH ×2 (08:41→17:11)
[2019-11-28] MEDS: SPIRONOLACTONE 25 MG TAB PO SCH (08:41)
[2019-11-28] MEDS: ALLOPURINOL 100 MG TAB PO SCH ×2 (08:41→20:44)
[2019-11-28] MEDS: PREGABALIN 100 MG CAP PO SCH ×2 (08:41→20:44)
[2019-11-28] MEDS: NYSTATIN 100,000 UNIT/GM POWD 15 GM TOPICAL SCH ×2 (08:42→20:45)
--- NOTE | 2019-11-28 10:30 | CDI ---
Documentation Clarification Form Date: 11/28/2019 10:16:14 AM From: Cindy Villarreal CCS, CCDS Admit Date: 11/17/2019 07:35:00 PM Patient Name: Arnold Alfredo Visit Number: [id number] Discharge Date: ATTENTION: The Clinical Documentation Specialists (CDI) and [facility] [facility] [employer] Coding Staff appreciate your assistance in clarifying documentation. Please respond to the clarification below the line at the bottom and electronically sign. The CDI & [facility] [employer] [facility] [facility] [employer] Coding staff will review the response and follow-up if needed. Please note: Queries are made part of the Legal Health Record. If you have any questions, please contact the author of this message via ITS. Dr. Gabriela Gusman: There is conflicting documentation in the record regarding the patient's stage of CKD. Per the 11/27 Nephrology Consult: "Acute kidney injury, cardiorenal syndrome/ischemic acute tubular necrosis, slightly improved, overall stable. Diuretics on hold. 2. Chronic kidney disease stage IV. Baseline creatinine 2.2- 2.4." Per the History & Physical: CKD III, probably nephrosclerosis. History/Risk Factors: DM II, Atrial Fibrillation, COPD on home O2, SUNIL, Morbid Obesity, Bilateral neuropathy, CHF w/EF 60-65%, Gerd & Hypertension. Clinical Indicators: Presented with SOB & lower extremity swelling, diagnosed with acute exacerbation of diastolic CHF. BUN: 78 - 85 - 90 - 96 - 89 - 86 - 84 - 80 - 73 - 72 Creatinine: 2.34 - 2.59 - 2.37 - 2.36 - 2.69 - 2.73 - 2.68 - 2.37 - 2.26 - 2.18 GFR: 29 - 24 - 30 - 32 Patients Baseline documented in nephrology consult 11/19: Creatinine went up from baseline of 2.34-2.59. Baseline creatinine 2.3 dated 08/16/2019. Baseline per 11/27 nephrology progress note: Baseline creatinine 2.2-2.4. Treatment: IV Lasix, INH Symbicort, IV Diamox, Bumex drip initially, Kidney function monitored. Diuretics currently on hold. In order to capture the severity of condition, please clarify if the condition signifies: CKD Stage 3 (GFR 30-59) CKD Stage 4 (GFR 15-29) Other, please specify Unable to determine Please clarify if the patient's CKD stage has worsened during this admission. (Last Revision: January 2018) stage 4 MTDD
[2019-11-28] MEDS: clonazePAM 1 MG TAB PO SCH ×2 (11:39→20:45)
[2019-11-28 11:51] LABS: Glucose,Whole Blood 69 mg/dL (75-99)
[2019-11-28 17:04] LABS: Glucose,Whole Blood 72 mg/dL (75-99)
--- NOTE | 2019-11-28 17:40 | PN ---
PROGRESS NOTE DATE OF SERVICE: 11/28/2019 This 59-year-old gentleman who was admitted with multiple medical problems, including shortness of breath as well as CHF, acute exacerbation, had acute on chronic diastolic dysfunction. The patient is complaining of generalized weakness and tiredness. Sensorium is fluctuating. The patient was drowsy and confused apparently this morning. The most recent chest x-ray, which was reviewed personally by me, showed some central venous congestion as well as cardiomegaly. Past medical history reviewed. Review of systems could not be taken; the patient is drowsy. CURRENT MEDICATIONS: Reviewed. They include: 1. [place] 7.5 t.i.d. p.r.n. 2. Diamox 500 mg t.i.d. 3. Zyloprim 100 mg b.i.d. 4. Aspirin 81 mg p.o. daily. 5. Lipitor 10 mg at bedtime. 6. Symbicort 80/4.5 two puffs b.i.d. 7. Klonopin 1 mg p.o. b.i.d. 8. Pradaxa 150 mg p.o. b.i.d. 9. Glucotrol 5 mg p.o. daily. 10.NovoLog scale. 11.Lopressor 150 mg p.o. daily. 12.Narcan 0.2 q.2 p.r.n. 13.Mycostatin powder. 14.Protonix 40 mg b.i.d. 15.Lyrica 100 mg p.o. b.i.d. 16.Aldactone 50 mg p.o. daily. 17.Desyrel 50 mg p.o. at bedtime. PHYSICAL EXAMINATION: Patient is alert, oriented x2. Pulse 79, blood pressure 118/72, respirations 17, temperature 98.1, pulse ox 92% on 40% FiO2. HEENT: Conjunctivae normal. Oral mucosa moist. NECK: No jugular venous distention. No carotid bruit. No lymph node enlargement. CARDIOVASCULAR SYSTEM: S1, S2 muffled. RESPIRATORY SYSTEM: Breath sounds diminished at the bases. A few scattered rhonchi and crackles. ABDOMEN: Soft, obese, non-tender. No mass palpable. LEGS: No edema. No swelling. NERVOUS SYSTEM: Diffusely weak. LABS: WBC 7.6, hemoglobin 9.3, sodium ntd, potassium 3.7, CO2 is 43, creatinine 2.18, slightly improving. Glucose 69. ASSESSMENT: 1. Shortness of breath, possibly congestive heart failure, acute exacerbation, with acute on chronic diastolic dysfunction. 2. Chronic kidney disease, stage III. 3. Diabetes mellitus, type 2. 4. Hypertension. 5. Hyperlipidemia. 6. Hypercapnia. 7. Morbid obesity with body mass index of 42.7. 8. Gait dysfunction. 9. Anemia, normocytic; anemia of chronic disease. 10.Gastroesophageal reflux disease. 11.History of hyperlipidemia. 12.History of sleep apnea. 13.History of peripheral neuropathy. 14.History of methicillin-resistant Staphylococcus aeruginosa. 15.History of anxiety. 16.Remote history of nicotine dependence. 17.Obesity with body mass index of 60.8. 18.FULL CODE. RECOMMENDATIONS AND DISCUSSION: In this 59-year-old gentleman who presented with multiple complex medical issues, we will monitor the patient closely, continue the current medications, continue with symptomatic treatment. Otherwise, monitor fluid/electrolyte balance closely. PT/OT evaluation. The patient's diuretics are held at this time. Creatinine as mentioned earlier is 2.18. We will continue to monitor. Further recommendations to follow. Will also hold the IV fluids. Avoid nephrotoxic medications. MMODL / IJN: [id number] / MTDD
[2019-11-28 20:34] LABS: Glucose,Whole Blood 148 mg/dL (75-99)
--- NOTE | 2019-11-28 20:37 | PN ---
PROGRESS NOTE Patient is seen for followup for chronic kidney disease and acute kidney injury. Renal function is fairly stable for the last 2-3 days with creatinine down to 2.1. It peaked at 2.6. Currently patient is being dialyzed. Patient is status post diuresis. He is currently maintained on Diamox for significant metabolic alkalosis. He has had good urine output. PHYSICAL EXAMINATION: On examination today, blood pressure was 106/70, heart rate of 99 per minute, patient is afebrile. Examination of the heart S1, S2. Examination of the lungs, bilateral breath sounds are heard. ABDOMEN: Soft, nontender. Morbidly obese. Examination of lower extremities chronic skin changes bilaterally. 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 LABS SHOW: Sodium 145, potassium 3.7, chloride 96, CO2 is 43, BUN 72. Serum creatinine at 2.1. ASSESSMENT: 1. Chronic kidney disease currently stable NKF stage IV. 2. Acute kidney injury, cardiorenal, currently stable. 3. Metabolic alkalosis secondary to diuresis maintained on Diamox, now improving. 4. Diastolic heart failure. 5. Type 2 diabetes. PLAN: Continue with the Diamox. Maintain fluid restriction. Repeat labs in 24-48 hours. MMODL / IJN: [id number] /
[2019-11-28] MEDS: ATORVASTATIN 10 MG TAB PO SCH (20:44)
[2019-11-28] MEDS: traZODone HCL 50 MG TAB PO SCH (20:45)
[2019-11-29 07:05] LABS: Glucose,Whole Blood 108 mg/dL (75-99)
[2019-11-29] MEDS: SYMBICORT 80-4.5 MCG INHALER INHALATION SCH ×2 (08:21→20:59)
[2019-11-29] MEDS: INSULIN ASPART (NovoLOG) 100 UNIT/ML VIAL SQ SCH ×4 (08:44→20:44)
[2019-11-29] MEDS: METOPROLOL TARTRATE 50 MG TAB PO SCH (08:56)
[2019-11-29] MEDS: SPIRONOLACTONE 25 MG TAB PO SCH (08:57)
[2019-11-29] MEDS: CALCIUM CARBONATE 500 MG CHEWABLE PO SCH (09:09)
[2019-11-29] MEDS: DABIGATRAN 150 MG CAP PO SCH ×2 (09:09→20:45)
[2019-11-29] MEDS: glipiZIDE 5 MG TAB PO SCH (09:10)
[2019-11-29] MEDS: NYSTATIN 100,000 UNIT/GM POWD 15 GM TOPICAL SCH ×2 (09:10→20:46)
[2019-11-29] MEDS: clonazePAM 1 MG TAB PO SCH ×2 (09:10→20:45)
[2019-11-29] MEDS: ALLOPURINOL 100 MG TAB PO SCH ×2 (09:10→20:45)
[2019-11-29] MEDS: ASPIRIN 81 MG PO SCH (09:10)
[2019-11-29] MEDS: PANTOPRAZOLE 40 MG TABLET PO SCH ×2 (09:10→17:09)
[2019-11-29] MEDS: PREGABALIN 100 MG CAP PO SCH ×2 (09:11→20:45)
[2019-11-29 09:20] LABS: Anisocytosis Slight; Basophils # (A) 0.1 k/uL (0-0.2); Basophils % (A) 1 %; Eosinophils # (A) 0.2 k/uL (0-0.7); Eosinophils % (A) 2 %; HCT 33.7 % (39.0-53.0); HGB 9.2 gm/dL (13.0-17.5); Hypochromasia Marked; Lymphocytes # (A) 0.6 k/uL (1.0-4.8); Lymphocytes % (A) 7 %; MCH 22.8 pg (25.0-35.0); MCHC 27.3 g/dL (31.0-37.0); MCV 83.5 fL (80.0-100.0); Mean Platelet Volume 7.8; Monocytes # (A) 0.6 k/uL (0-1.0); Monocytes % (A) 8 %; Neutrophils # (A) 6.3 k/uL (1.3-7.7); Neutrophils % (A) 78 %; Platelet Count 260 k/uL (150-450); Poikilocytosis Slight; RBC 4.04 m/uL (4.30-5.90); RDW 17.7 % (11.5-15.5); WBC 8.1 k/uL (3.8-10.6)
[2019-11-29 09:26] LABS: Calcium 9.4 mg/dL (8.4-10.2); Potassium 3.7 mmol/L (3.5-5.1)
[2019-11-29 11:49] LABS: Glucose,Whole Blood 146 mg/dL (75-99)
[2019-11-29 17:18] LABS: Glucose,Whole Blood 73 mg/dL (75-99)
--- NOTE | 2019-11-29 18:31 | PN ---
PROGRESS NOTE Patient is seen for followup for chronic kidney disease and hypervolemia. His renal function has been stable. No significant complaints today. PHYSICAL EXAMINATION: On examination, blood pressure was 94/59 earlier. Later on it was 138/75, heart rate 63 per minute. He is afebrile. EXAMINATION OF THE HEART: S1 and S2. EXAMINATION OF LUNGS: Decreased breath sounds at bases. ABDOMEN: Soft, morbidly obese. Examination of lower extremities shows bilateral lower extremities to be wrapped. No significant edema is noted. Chronic skin changes are seen. LABS: Sodium 147, potassium 3.7. CO2 is 42, BUN of 70, creatinine 2.15. ASSESSMENT: 1. Chronic kidney disease, stage IV, currently stable. 2. Acute kidney injury, cardiorenal. Renal function is fairly stable. Volume status has improved significantly. At this time patient is off of diuretics and maintained on Diamox for severe metabolic alkalosis. 3. Volume overload, now improved. 4. Severe metabolic alkalosis secondary to diuretics, maintained on IV Diamox. There is concern for possible confusion and mental status changes around the time the Diamox was started. I will change that to p.o. at a lower dose. The metabolic acidosis has improved. PLAN: Decrease Diamox. Repeat labs in a.m. Maintain fluid restriction. Patient will need loop diuretics upon discharge. He had been on Lasix 80 mg p.o. b.i.d. However, at this point he might need only 40 mg daily. MMODL / IJN: [id number] /
[2019-11-29 20:29] LABS: Glucose,Whole Blood 168 mg/dL (75-99)
[2019-11-29] MEDS: acetaZOLAMIDE 250 MG TAB PO SCH (20:45)
[2019-11-29] MEDS: ATORVASTATIN 10 MG TAB PO SCH (20:45)
[2019-11-29] MEDS: traZODone HCL 50 MG TAB PO SCH (20:45)
[2019-11-29] MEDS: HYDROcodone/APAP 7.5-325MG 1 EACH TAB PO PRN (20:50)
[2019-11-29 20:54] LABS: Hemoglobin A1C 5.9 % (4.0-6.0)
--- NOTE | 2019-11-29 22:32 | P.PN ---
Progress Note - Text Progress Note Date: 11/29/19 Chief Complaint: Easily winded Interval history: This is a 58-year-old patient who follows with visiting physicians Dr. Aramis Saleh. extensive medical history. Chronic stable medical conditions include atrial fibrillation, COPD, diabetes, GERD, hypertension, hyperlipidemia, osteoarthritis, obstructive sleep apnea, bilateral neuropathy, CHF with EF of 60-65%, atrial fibrillation. Patient normally uses a cane around the house.. Lives alone. Patient presents with progressive increasing edema. No fever no chills. Getting is the short winded. Orthopneic. Slight cough. Patient was here in August 2019. Was treated with a Bumex drip. He was in negative fluid balance of 30 L on that admission. Admitted with CHF exacerbation. Started on Bumex drip. Patient is being close to 12l negative fluid balance. Today-tired. Laying in bed. Starting a diet. Breathing better. Review of systems: Was done for constitutional, cardiovascular, GI, pulmonary. relevant finding as above. Active Medications Hydrocodone Bitart/Acetaminophen ([place] 7.5-325) 1 each PO TID PRN PRN Reason: MODERATE Pain Last Admin: 11/29/19 20:50 Dose: 1 each Documented by: Acetazolamide (Diamox) 250 mg PO BID [facility] Last Admin: 11/29/19 20:45 Dose: 250 mg Documented by: Allopurinol (Zyloprim) 100 mg PO BID [facility] Last Admin: 11/29/19 20:45 Dose: 100 mg Documented by: Aspirin (Aspirin) 81 mg PO DAILY [facility] Last Admin: 11/29/19 09:10 Dose: 81 mg Documented by: Atorvastatin Calcium (Lipitor) 10 mg PO HS [facility] Last Admin: 11/29/19 20:45 Dose: 10 mg Documented by: Budesonide/Formoterol Fumarate (Symbicort 80-4.5 Mcg Inhaler) 2 puff INHALATION RT-BID [facility] Last Admin: 11/29/19 20:59 Dose: 2 puff Documented by: Calcium Carbonate/Glycine (Tums) 500 mg PO DAILY [facility] Last Admin: 11/29/19 09:09 Dose: 500 mg Documented by: Clonazepam (Klonopin) 1 mg PO BID [facility] Last Admin: 11/29/19 20:45 Dose: Not Given Documented by: Dabigatran (Pradaxa) 150 mg PO BID [facility] Last Admin: 11/29/19 20:45 Dose: 150 mg Documented by: Glipizide (Glucotrol) 5 mg PO DAILY [facility] Last Admin: 11/29/19 09:10 Dose: 5 mg Documented by: Insulin Aspart (Novolog) 0 unit SQ ACHS [facility]; Protocol Last Admin: 11/29/19 20:44 Dose: 2 unit Documented by: Metoprolol Tartrate (Lopressor) 150 mg PO DAILY [facility] Last Admin: 11/29/19 08:56 Dose: Not Given Documented by: Naloxone HCl (Narcan) 0.2 mg IV Q2M PRN PRN Reason: Opioid Reversal Nystatin (Mycostatin Powder) 1 applic TOPICAL BID [facility] Last Admin: 11/29/19 20:46 Dose: 1 applic Documented by: Pantoprazole Sodium (Protonix) 40 mg PO AC-BID [facility] Last Admin: 11/29/19 17:09 Dose: 40 mg Documented by: Pregabalin (Lyrica) 100 mg PO BID [facility] Last Admin: 11/29/19 20:45 Dose: 100 mg Documented by: Spironolactone (Aldactone) 50 mg PO DAILY [facility] Last Admin: 11/29/19 08:57 Dose: Not Given Documented by: Trazodone HCl (Desyrel) 50 mg PO HS [facility] Last Admin: 11/29/19 20:45 Dose: 50 mg Documented by: Physical examination: VITAL SIGNS: 98.3, 79, 19, 138/75, 96% on 3 L GENERAL: Sitting up in bed, but tired EYES: Pupils equal. Conjunctiva normal. HEENT: External appearance of nose and ears normal, oral cavity grossly normal. NECK: Short, thick, JVD unable to assess; masses not palpable. HEART: Distant heart sounds,; decreased edema, LUNGS: Respiratory rate increased, distance breath sounds. ABDOMEN: Soft, large pendulous abdomen, some evidence of fungal infection in the groin, nontender, liver spleen not palpable, no masses palpable. PSYCH: Tired but able to answer questions. DERMATOLOGICAL: Evidence of flaky skin and venous dermatitis on the lower extremity INVESTIGATIONS, reviewed in the clinical context: White count 8.1 hemoglobin 9.2 potassium 3.7 bun 70 creatinine 2.15 Previous testing White count 8 hemoglobin 9.5 platelets 284 Potassium 4.3 bicarb 42 bun 78 creatinine 2.34 Troponin I 0.065 proBNP 2980 Patient's labs in August 2019 was bun of 56 creatinine 2.36 Chest x-ray film personally reviewed by me-cardiomegaly, pulmonary edema, fluid in the fissure 2-D echocardiogram from January 2019-EF 60-65% with wall motion abnormality EKG tracing personally reviewed by me-atrial fibrillation, rate controlled Assessment: -Acute on chronic congestive heart failure exacerbation from diastolic dysfunction EF 60-65%, status post Bumex drip -Acute metabolic encephalopathy from CO2 narcosis/respiratory failure, improving -Acute hypoxic and hypercapnic respiratory failure, including CO2 narcosis -Persistent atrial fibrillation rate controlled on presentation -Chronic kidney disease stage III probably nephrosclerosis -Morbid obesity BMI 64.3 -COPD -Diabetes mellitus type 2, on oral hypoglycemic -GERD -Hyperlipidemia -Essential hypertension -Chronic medical debility -Obstructive sleep apnea -Diabetic peripheral neuropathy -Stasis dermatitis, bilateral lower extremity -Metabolic alkalosis from diuresis Plan: Care was discussed with the patient. Question answered. Also discussed Dr. Gusman. And also the child protective services social worker. Hopefully the patient did go to the ECF tomorrow.
[2019-11-30 07:11] LABS: Glucose,Whole Blood 120 mg/dL (75-99)
[2019-11-30] MEDS: SYMBICORT 80-4.5 MCG INHALER INHALATION SCH (07:31)
[2019-11-30 08:06] LABS: Anisocytosis Slight; Basophils # (A) 0.1 k/uL (0-0.2); Basophils % (A) 1 %; Eosinophils # (A) 0.2 k/uL (0-0.7); Eosinophils % (A) 3 %; HCT 34.9 % (39.0-53.0); HGB 9.7 gm/dL (13.0-17.5); Hypochromasia Marked; Lymphocytes # (A) 0.7 k/uL (1.0-4.8); Lymphocytes % (A) 9 %; MCHC 27.8 g/dL (31.0-37.0); MCV 82.7 fL (80.0-100.0); Mean Platelet Volume 7.7; Monocytes # (A) 0.5 k/uL (0-1.0); Monocytes % (A) 7 %; Neutrophils # (A) 6.1 k/uL (1.3-7.7); Neutrophils % (A) 78 %; Platelet Count 270 k/uL (150-450); Poikilocytosis Slight; RBC 4.22 m/uL (4.30-5.90); RDW 17.9 % (11.5-15.5); WBC 7.9 k/uL (3.8-10.6)
[2019-11-30 08:34] LABS: Calcium 9.4 mg/dL (8.4-10.2); Potassium 3.8 mmol/L (3.5-5.1)
[2019-11-30] MEDS: INSULIN ASPART (NovoLOG) 100 UNIT/ML VIAL SQ SCH ×3 (08:59→16:44)
[2019-11-30] MEDS: clonazePAM 1 MG TAB PO SCH (09:11)
[2019-11-30] MEDS: DABIGATRAN 150 MG CAP PO SCH (09:12)
[2019-11-30] MEDS: PREGABALIN 100 MG CAP PO SCH (09:12)
[2019-11-30] MEDS: acetaZOLAMIDE 250 MG TAB PO SCH (09:12)
[2019-11-30] MEDS: METOPROLOL TARTRATE 50 MG TAB PO SCH (09:12)
[2019-11-30] MEDS: SPIRONOLACTONE 25 MG TAB PO SCH (09:12)
[2019-11-30] MEDS: PANTOPRAZOLE 40 MG TABLET PO SCH (09:12)
[2019-11-30] MEDS: CALCIUM CARBONATE 500 MG CHEWABLE PO SCH (09:12)
[2019-11-30] MEDS: ASPIRIN 81 MG PO SCH (09:12)
[2019-11-30] MEDS: glipiZIDE 5 MG TAB PO SCH (09:12)
[2019-11-30] MEDS: ALLOPURINOL 100 MG TAB PO SCH (09:12)
[2019-11-30] MEDS: HYDROcodone/APAP 7.5-325MG 1 EACH TAB PO PRN ×2 (09:26→18:14)
[2019-11-30 11:57] LABS: Glucose,Whole Blood 96 mg/dL (75-99)
[2019-11-30] MEDS: NYSTATIN 100,000 UNIT/GM POWD 15 GM TOPICAL SCH (12:55)
--- NOTE | 2019-11-30 13:59 | P.DS ---
Providers Date of admission: 11/17/19 19:35 Expected date of discharge: 11/30/19 Attending physician: Ney Jenkins Consults: 11/18/19 20:38 Consult Physician Routine Consulting Provider: Gabriela Gusman Consult Reason/Comments: CKD Do you want consulting provider notified?: Yes 11/18/19 20:41 Consult Physician Routine Consulting Provider: Aayush Workman Consult Reason/Comments: chf Do you want consulting provider notified?: Yes Primary care physician: Aramis Fry MD Hospital Course: Chief Complaint: Easily winded Hospital course: This is a 58-year-old patient who follows with visiting physicians Dr. Aramis Saleh. extensive medical history. Chronic stable medical conditions include atrial fibrillation, COPD, diabetes, GERD, hypertension, hyperlipidemia, osteoarthritis, obstructive sleep apnea, bilateral neuropathy, CHF with EF of 60-65%, atrial fibrillation. Patient normally uses a cane around the house.. Lives alone. Patient presents with progressive increasing edema. No fever no chills. Getting easily short winded. Orthopneic. Slight cough. (Patient was here in August 2019. Was treated with a Bumex drip. He was in negative fluid balance of 30 L on that admission.) Admitted with CHF exacerbation. Started on Bumex drip. Patient is being close to 12l negative fluid balance. Also treated for acute hypoxic respiratory failure, metabolic encephalopathy,. Also had acute kidney injury. Creatinine did peak to 2.73. Down to 1.83 today. Today-tired. Tolerating his diet. Edema was gone down. Getting up and about a day for constipation. Care was discussed with the patient. At the professor of social work. Also the nurse Discussion and discharge planning more than 35 minutes Consultation: Dr. Gusman and associates from nephrology Cardiology associates Physical examination: VITAL SIGNS: 97.6, 97, 16, 122/74, 95% on 3 L GENERAL: Sitting up in bed, but tired EYES: Pupils equal. Conjunctiva normal. HEENT: External appearance of nose and ears normal, oral cavity grossly normal. NECK: Short, thick, JVD unable to assess; masses not palpable. HEART: Distant heart sounds,; decreased edema, LUNGS: Respiratory rate increased, distance breath sounds. ABDOMEN: Soft, large pendulous abdomen, some evidence of fungal infection in the groin, nontender, liver spleen not palpable, no masses palpable. PSYCH: Tired but able to answer questions. DERMATOLOGICAL: Evidence of flaky skin and venous dermatitis on the lower extremity INVESTIGATIONS, reviewed in the clinical context: White count 7.9 hemoglobin 9.7 potassium 3.8 bun 56 creatinine 1.83 Previous testing White count 8 hemoglobin 9.5 platelets 284 Potassium 4.3 bicarb 42 bun 78 creatinine 2.34 Troponin I 0.065 proBNP 2980 Patient's labs in August 2019 was bun of 56 creatinine 2.36 Chest x-ray film personally reviewed by me-cardiomegaly, pulmonary edema, fluid in the fissure 2-D echocardiogram from January 2019-EF 60-65% with wall motion abnormality EKG tracing personally reviewed by me-atrial fibrillation, rate controlled Assessment: -Acute on chronic congestive heart failure exacerbation from diastolic dysfunction EF 60-65%, status post Bumex drip -Acute metabolic encephalopathy from CO2 narcosis/respiratory failure, improved -Acute hypoxic and hypercapnic respiratory failure, including CO2 narcosis -Persistent atrial fibrillation rate controlled on presentation -Chronic kidney disease stage III probably nephrosclerosis -Morbid obesity BMI 64.3 -COPD -Diabetes mellitus type 2, on oral hypoglycemic -GERD -Hyperlipidemia -Essential hypertension -Chronic medical debility -Obstructive sleep apnea -Diabetic peripheral neuropathy -Stasis dermatitis, bilateral lower extremity -Metabolic alkalosis from diuresis Disposition: [facility] Plan - Discharge Summary New Discharge Prescriptions: New Spironolactone [Aldactone] 50 mg PO DAILY tab INSULIN ASPART (NovoLOG) [NovoLOG (formulary)] 0 unit SQ ACHS vial Continue Fluticasone/Salmeterol [Advair 250-50 Diskus] 1 puff INHALATION RT-BID Allopurinol [Zyloprim] 100 mg PO BID Simvastatin [Zocor] 20 mg PO HS Aspirin [Adult Low Dose Aspirin EC] 81 mg PO DAILY Omeprazole [PriLOSEC] 40 mg PO BID glipiZIDE [Glucotrol] 5 mg PO DAILY traZODone HCL [Desyrel] 50 mg PO HS Nystatin 100,000Unit/gm Cream [Mycostatin Cream] 1 applic TOPICAL BID Dabigatran [Pradaxa] 150 mg PO BID Calcium Carbonate 500 mg PO DAILY Pregabalin [Lyrica] 100 mg PO BID #6 cap HYDROcodone/APAP 7.5-325MG [Tram 7.5-325] 1 tab PO TID PRN #9 tab PRN Reason: Pain Changed Potassium Chloride ER [K-Dur 20] 20 meq PO DAILY #0 tab.er.prt clonazePAM [KlonoPIN] 0.5 mg PO BID #6 tab Furosemide [Lasix] 80 mg PO DAILY #0 Metoprolol Tartrate [Lopressor] 50 mg PO Q8H #0 Discontinued Spironolactone 25 mg PO DAILY Albuterol Inhaler [Ventolin Hfa Inhaler] 2 puff INHALATION RT-Q6H PRN PRN Reason: Shortness Of Breath Discharge Medication List Allopurinol [Zyloprim] 100 mg PO BID 02/10/16 [History] Fluticasone/Salmeterol [Advair 250-50 Diskus] 1 puff INHALATION RT-BID 02/10/16 [History] Simvastatin [Zocor] 20 mg PO HS 02/10/16 [History] Aspirin [Adult Low Dose Aspirin EC] 81 mg PO DAILY 02/03/19 [History] Omeprazole [PriLOSEC] 40 mg PO BID 08/02/19 [History] Calcium Carbonate 500 mg PO DAILY 11/17/19 [History] Dabigatran [Pradaxa] 150 mg PO BID 11/17/19 [History] Nystatin 100,000Unit/gm Cream [Mycostatin Cream] 1 applic TOPICAL BID 11/17/19 [History] glipiZIDE [Glucotrol] 5 mg PO DAILY 11/17/19 [History] traZODone HCL [Desyrel] 50 mg PO HS 11/17/19 [History] Furosemide [Lasix] 80 mg PO DAILY #0 11/30/19 [Rx] HYDROcodone/APAP 7.5-325MG [Tram 7.5-325] 1 tab PO TID PRN #9 tab 11/30/19 [Rx] INSULIN ASPART (NovoLOG) [NovoLOG (formulary)] 0 unit SQ ACHS vial 11/30/19 [Rx] Metoprolol Tartrate [Lopressor] 50 mg PO Q8H #0 11/30/19 [Rx] Potassium Chloride ER [K-Dur 20] 20 meq PO DAILY #0 tab.er.prt 11/30/19 [Rx] Pregabalin [Lyrica] 100 mg PO BID #6 cap 11/30/19 [Rx] Spironolactone [Aldactone] 50 mg PO DAILY tab 11/30/19 [Rx] clonazePAM [KlonoPIN] 0.5 mg PO BID #6 tab 11/30/19 [Rx] Follow up Appointment(s)/Referral(s): Aramis Fry MD [Primary Care Provider] - 1-2 days [facility] [NON-STAFF] - 1-2 Days
[2019-11-30] MEDS ORDERED: MAGNESIUM CITRATE 296 ML BOTTLE PO ONE (15:30)
[2019-11-30 16:36] LABS: Glucose,Whole Blood 80 mg/dL (75-99)
[2019-11-30 16:43] VITALS: BP 112/74; PULSE 82; RESP 18; TEMP 97.3
--- NOTE | 2019-11-30 18:29 | PN ---
PROGRESS NOTE Patient is seen for followup for acute kidney injury and metabolic alkalosis. He has been maintained on IV Diamox. There has been some concern regarding his mentation, and therefore the Diamox was decreased yesterday to p.o. 250 mg twice a day. The metabolic alkalosis has improved. At this point, I will hold off on the Diamox. PHYSICAL EXAMINATION: On examination, blood pressure was 122/74, heart rate 97 per minute. The patient is afebrile. EXAMINATION OF THE HEART: S1 and S2. EXAMINATION OF LUNGS: Decreased breath sounds at bases. ABDOMEN: Soft, morbidly obese. EXAMINATION OF LOWER EXTREMITIES: Chronic skin changes; no significant edema is noted. CENTRAL NERVOUS SYSTEM EXAM: The patient is moving all 4 extremities. LABS: Sodium 145, potassium 3.8, chloride 101, CO2 is 39, BUN 56, creatinine 1.83. ASSESSMENT: 1. Acute kidney injury associated with recent diuresis, currently improving. 2. Metabolic alkalosis secondary to recent diuresis, currently improved post Diamox. I will discontinue the Diamox for now. 3. Chronic kidney disease stage IV. 4. Volume overload, now improved. PLAN: Discontinue Diamox. The patient will need to resume loop diuretics in the next week or so as outpatient. This will need to be followed up post discharge to avoid recurrent admission for CHF. MMODL / IJN: [id number] /
== END 2019-11-30 18:15 | DRG 291 ==
LOC: EC 13:00 → 3SCARD 19:35 → 4SSUR 11-26 17:36
PROVIDERS: ADMIT Hospitalist; ATTEND Hospitalist
DX: I13.0 Hypertensive heart and chronic kidney disease with heart failure and stage 1 through stage 4 chronic kidney disease, or unspecified chronic kidney disease (principal); G93.41 Metabolic encephalopathy; I50.33 Acute on chronic diastolic (congestive) heart failure; J96.01 Acute respiratory failure with hypoxia; J96.02 Acute respiratory failure with hypercapnia; N17.0 Acute kidney failure with tubular necrosis; N18.4 Chronic kidney disease, stage 4 (severe); E87.4 Mixed disorder of acid-base balance; I48.11 Longstanding persistent atrial fibrillation; Z68.44 Body mass index [BMI] 60.0-69.9, adult; E11.22 Type 2 diabetes mellitus with diabetic chronic kidney disease; D63.1 Anemia in chronic kidney disease; Z79.84 Long term (current) use of oral hypoglycemic drugs; E11.42 Type 2 diabetes mellitus with diabetic polyneuropathy; E66.01 Morbid (severe) obesity due to excess calories; E78.5 Hyperlipidemia, unspecified; Z87.891 Personal history of nicotine dependence; G47.33 Obstructive sleep apnea (adult) (pediatric); I08.1 Rheumatic disorders of both mitral and tricuspid valves; I27.20 Pulmonary hypertension, unspecified; I87.2 Venous insufficiency (chronic) (peripheral); J44.9 Chronic obstructive pulmonary disease, unspecified; K21.9 Gastro-esophageal reflux disease without esophagitis; K59.00 Constipation, unspecified; T50.2X5A Adverse effect of carbonic-anhydrase inhibitors, benzothiadiazides and other diuretics, initial encounter; Z79.01 Long term (current) use of anticoagulants; Z79.51 Long term (current) use of inhaled steroids; Z79.82 Long term (current) use of aspirin; Z79.899 Other long term (current) drug therapy; Z82.49 Family history of ischemic heart disease and other diseases of the circulatory system; Z82.5 Family history of asthma and other chronic lower respiratory diseases; Z82.62 Family history of osteoporosis; Z83.3 Family history of diabetes mellitus; Z86.14 Personal history of Methicillin resistant Staphylococcus aureus infection; Z99.81 Dependence on supplemental oxygen; R53.81 Other malaise; M19.90 Unspecified osteoarthritis, unspecified site; Z60.2 Problems related to living alone
CPT/HCPCS: 36415; 36600; 70450; 71045; 71046; 80048; 80053; 82570; 82805; 83036; 83735; 83880; 84156; 84484; 85025; 85610; 85730; 93005; 94640; 94660; 94760; 96374; 99285

== ENCOUNTER 2020-06-26 09:18 | Inpatient (IN) | payer MEDICARE, OTHER ==
[2020-06-26 09:38] LABS: Glucose,Whole Blood 107 mg/dL (75-99)
[2020-06-26] MEDS ORDERED: IPRATROPIUM-ALBUTEROL 3 ML NEB INHALATION STA (09:39)
--- NOTE | 2020-06-26 09:45 | ED ---
General Adult HPI - General Chief complaint: Shortness of Breath Stated complaint: general weakness Time Seen by Provider: 06/26/20 09:19 Source: patient, EMS, RN notes reviewed Mode of arrival: EMS Limitations: physical limitation - History of Present Illness Initial comments: Patient is a pleasant 59-year-old male presenting to the emergency department with difficulty in breathing. Onset of symptoms was a week or more ago. Patient does have cough with occasional green sputum. No fevers. No chest pain. Patient denies any history of similar symptoms previously. Chart does reveal that patient does have history of CHF and COPD. Patient states leg swelling is chronic. Patient does have his legs wrapped. - Related Data Home Medications Medication Instructions Recorded Confirmed Fluticasone/Salmeterol [Advair 1 puff INHALATION RT-BID 02/10/16 06/26/20 250-50 Diskus] Simvastatin [Zocor] 20 mg PO HS 02/10/16 06/26/20 Aspirin [Adult Low Dose Aspirin EC] 81 mg PO DAILY 02/03/19 06/26/20 Dabigatran [Pradaxa] 150 mg PO BID 11/17/19 06/26/20 Nystatin 100,000Unit/gm Cream 1 applic TOPICAL BID 11/17/19 06/26/20 [Mycostatin Cream] traZODone HCL [Desyrel] 50 mg PO HS 11/17/19 06/26/20 Acetaminophen Tab [Tylenol] 650 mg PO Q8H 06/26/20 06/26/20 Albuterol Sulfate [Ventolin HFA] 1 puff INHALATION RT-Q4H PRN 06/26/20 06/26/20 Allopurinol [Zyloprim] 300 mg PO DAILY 06/26/20 06/26/20 Cyanocobalamin [Vitamin B-12] 500 mcg PO HS 06/26/20 06/26/20 Ferrous Sulfate [Feosol] 325 mg PO DAILY 06/26/20 06/26/20 Folic Acid 0.4 mg PO HS 06/26/20 06/26/20 Furosemide [Lasix] 40 mg PO BID@0900,1400 06/26/20 06/26/20 Ipratropium-Albuterol Nebulize 3 ml INHALATION RT-TID 06/26/20 06/26/20 [Duoneb 0.5 mg-3 mg/3 ml Soln] Lactulose [Cephulac] 20 gm PO BID 06/26/20 06/26/20 Loratadine [Claritin] 10 mg PO DAILY 06/26/20 06/26/20 Magnesium Hydroxide [Milk of 2,400 mg PO DAILY PRN 06/26/20 06/26/20 Magnesia] Metoprolol Tartrate [Lopressor] 50 mg PO TID 06/26/20 06/26/20 Omeprazole [PriLOSEC] 20 mg PO DAILY 06/26/20 06/26/20 traMADol HCL [Ultram] 50 mg PO Q6HR PRN 06/26/20 06/26/20 Previous Rx's Medication Instructions Recorded Pregabalin [Lyrica] 100 mg PO BID #6 cap 11/30/19 Allergies Allergy/AdvReac Type Severity Reaction Status Date / Time No Known Allergies Allergy Verified 06/26/20 10:39 Review of Systems ROS Statement: Those systems with pertinent positive or pertinent negative responses have been documented in the HPI. ROS Other: All systems not noted in ROS Statement are negative. Constitutional: Denies: fever Eyes: Denies: eye pain ENT: Denies: ear pain Respiratory: Reports: cough, dyspnea Cardiovascular: Denies: chest pain Endocrine: Reports: fatigue Gastrointestinal: Denies: abdominal pain Genitourinary: Denies: dysuria Musculoskeletal: Denies: back pain Skin: Denies: rash Neurological: Denies: weakness Past Medical History Past Medical History: Atrial Fibrillation, Heart Failure, COPD, Diabetes Mellitus, GERD/Reflux, Hyperlipidemia, Hypertension, Neurologic Disorder, Osteoarthritis (OA), Sleep Apnea/CPAP/BIPAP Additional Past Medical History / Comment(s): NIDDM, bilateral lower leg and feet neuropathy, gout-travels everywhere per pt History of Any Multi-Drug Resistant Organisms: MRSA Date of last positivie culture/infection: 2005 or 2007 per pt-tx while pt lived in [place] MDRO Source:: Low back Past Surgical History: Adenoidectomy, Tonsillectomy Additional Past Surgical History / Comment(s): Pyloric stenosis when he was an , bilateral knee arthroscopies, 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 Past Anesthesia/Blood Transfusion Reactions: No Reported Reaction Past Psychological History: Anxiety Smoking Status: Former smoker Past Alcohol Use History: None Reported, Rare Past Drug Use History: None Reported, Marijuana - Past Family History Father Family Medical History: Coronary Artery Disease (CAD), Diabetes Mellitus Additional Family Medical History / Comment(s): Father had heart disease. He at age 74 of possible a [place]-pt not sure. Mother Family Medical History: Congestive Heart Failure (CHF), COPD, Coronary Artery Disease (CAD) Additional Family Medical History / Comment(s): Mother had heart problems. She at age 72 yrs. She had osteoporosis. Brother(s) Family Medical History: No Reported History Sister(s) Family Medical History: Diabetes Mellitus Daughter(s) Family Medical History: No Reported History Son(s) Family Medical History: No Reported History General Exam Limitations: physical limitation General appearance: alert, in no apparent distress Head exam: Present: normocephalic Neck exam: Present: normal inspection Respiratory exam: Present: wheezes, decreased breath sounds Cardiovascular Exam: Present: irregular rhythm GI/Abdominal exam: Present: soft. Absent: tenderness Extremities exam: Present: pedal edema, other (Bilateral legs are wrapped) Back exam: Present: normal inspection Neurological exam: Present: alert Psychiatric exam: Present: normal affect, normal mood Skin exam: Present: normal color Course Vital Signs 06/26/20 06/26/20 06/26/20 09:26 09:32 10:00 Temperature 99.1 F Pulse Rate 106 H 105 H Respiratory 18 20 Rate Blood Pressure 131/89 119/70 O2 Sat by Pulse 92 L 93 L Oximetry 06/26/20 06/26/20 06/26/20 10:30 10:41 10:52 Temperature 98.4 F Pulse Rate 93 102 H 106 H Respiratory 18 Rate Blood Pressure 109/74 O2 Sat by Pulse 92 L Oximetry EKG Findings - EKG Comments: EKG Findings:: A. fib with rate of 106. QRS 108. QT 366. QTc 486. Right axis. Low QRS voltage. Incomplete left bundle-branch block. Nonspecific T waves. Medical Decision Making - Medical Decision Making Patient reevaluated. Patient updated. Case was discussed in detail with Dr. Greenwood who did come evaluate patient and will admit covered for Dr. Watson. He does request ABG. Patient was placed on BiPAP with ABG showing CO2 of 88 - Lab Data Result diagrams: 06/26/20 10:05 06/26/20 10:05 Lab Results 06/26/20 06/26/20 06/26/20 Range/Units 09:37 10:05 10:05 WBC 6.5 (3.8-10.6) k/uL RBC 3.82 L (4.30-5.90) m/uL Hgb 11.4 L (13.0-17.5) gm/dL Hct 38.0 L (39.0-53.0) % MCV 99.4 (80.0-100.0) fL MCH 29.8 (25.0-35.0) pg MCHC 29.9 L (31.0-37.0) g/dL RDW 17.1 H (11.5-15.5) % Plt Count 190 (150-450) k/uL Neutrophils % 70 % Lymphocytes % 15 % Monocytes % 8 % Eosinophils % 5 % Basophils % 1 % Neutrophils # 4.5 (1.3-7.7) k/uL Lymphocytes # 1.0 (1.0-4.8) k/uL Monocytes # 0.5 (0-1.0) k/uL Eosinophils # 0.3 (0-0.7) k/uL Basophils # 0.0 (0-0.2) k/uL Hypochromasia Marked Anisocytosis Slight Macrocytosis Slight PT 14.6 H (9.0-12.0) sec INR 1.5 H (<1.2) APTT 33.7 H (22.0-30.0) sec D-Dimer 0.43 (<0.60) mg/L FEU Sodium (137-145) mmol/L Potassium (3.5-5.1) mmol/L Chloride (98-107) mmol/L Carbon Dioxide (22-30) mmol/L Anion Gap mmol/L BUN (9-20) mg/dL Creatinine (0.66-1.25) mg/dL Est GFR (CKD-EPI)AfAm (>60 ml/min/1.73 sqM) Est GFR (CKD-EPI)NonAf (>60 ml/min/1.73 sqM) Glucose (74-99) mg/dL POC Glucose (mg/dL) 107 H (75-99) mg/dL POC Glu [employer] ID [place] Plasma Lactic Acid Brandon (0.7-2.0) mmol/L Calcium (8.4-10.2) mg/dL Magnesium (1.6-2.3) mg/dL Total Bilirubin (0.2-1.3) mg/dL AST (17-59) U/L ALT (4-49) U/L Alkaline Phosphatase (38-126) U/L Lactate Dehydrogenase (313-618) U/L C-Reactive Protein (<10.0) mg/L NT-Pro-B Natriuret Pep pg/mL Total Protein (6.3-8.2) g/dL Albumin (3.5-5.0) g/dL 06/26/20 06/26/20 06/26/20 Range/Units 10:05 10:05 10:05 WBC (3.8-10.6) k/uL RBC (4.30-5.90) m/uL Hgb (13.0-17.5) gm/dL Hct (39.0-53.0) % MCV (80.0-100.0) fL MCH (25.0-35.0) pg MCHC (31.0-37.0) g/dL RDW (11.5-15.5) % Plt Count (150-450) k/uL Neutrophils % % Lymphocytes % % Monocytes % % Eosinophils % % Basophils % % Neutrophils # (1.3-7.7) k/uL Lymphocytes # (1.0-4.8) k/uL Monocytes # (0-1.0) k/uL Eosinophils # (0-0.7) k/uL Basophils # (0-0.2) k/uL Hypochromasia Anisocytosis Macrocytosis PT (9.0-12.0) sec INR (<1.2) APTT (22.0-30.0) sec D-Dimer (<0.60) mg/L FEU Sodium 142 (137-145) mmol/L Potassium 4.3 (3.5-5.1) mmol/L Chloride 100 (98-107) mmol/L Carbon Dioxide 39 H (22-30) mmol/L Anion Gap 3 mmol/L BUN 59 H (9-20) mg/dL Creatinine 1.82 H (0.66-1.25) mg/dL Est GFR (CKD-EPI)AfAm 46 (>60 ml/min/1.73 sqM) Est GFR (CKD-EPI)NonAf 40 (>60 ml/min/1.73 sqM) Glucose 103 H (74-99) mg/dL POC Glucose (mg/dL) (75-99) mg/dL POC Glu [employer] ID Plasma Lactic Acid Brandon 0.7 (0.7-2.0) mmol/L Calcium 9.7 (8.4-10.2) mg/dL Magnesium 2.7 H (1.6-2.3) mg/dL Total Bilirubin 1.0 (0.2-1.3) mg/dL AST 17 (17-59) U/L ALT 9 (4-49) U/L Alkaline Phosphatase 58 (38-126) U/L Lactate Dehydrogenase 375 (313-618) U/L C-Reactive Protein <5.0 (<10.0) mg/L NT-Pro-B Natriuret Pep 4170 pg/mL Total Protein 6.2 L (6.3-8.2) g/dL Albumin 3.4 L (3.5-5.0) g/dL - Radiology Data Radiology results: image reviewed (Chest x-ray revealed no acute process on limited exam) Critical Care Time Critical Care Time: Yes Total Critical Care Time: 32 Disposition Clinical Impression: COPD (chronic obstructive pulmonary disease), Acute respiratory failure Disposition: ADMITTED IP TO THIS HOSP Is patient prescribed a controlled substance at d/c from ED?: No Decision Time: 11:28
[2020-06-26 10:26] LABS: Anisocytosis Slight; Basophils % (A) 1 %; Eosinophils # (A) 0.3 k/uL (0-0.7); Eosinophils % (A) 5 %; HGB 11.4 gm/dL (13.0-17.5); Hypochromasia Marked; Lymphocytes % (A) 15 %; MCH 29.8 pg (25.0-35.0); MCHC 29.9 g/dL (31.0-37.0); MCV 99.4 fL (80.0-100.0); Macrocytosis Slight; Monocytes # (A) 0.5 k/uL (0-1.0); Monocytes % (A) 8 %; Neutrophils # (A) 4.5 k/uL (1.3-7.7); Neutrophils % (A) 70 %; Platelet Count 190 k/uL (150-450); RBC 3.82 m/uL (4.30-5.90); RDW 17.1 % (11.5-15.5); WBC 6.5 k/uL (3.8-10.6)
--- NOTE | 2020-06-26 10:38 | XR ---
EXAMINATION TYPE: XR chest 2V DATE OF EXAM: 06/26/2020 COMPARISON: 11/27/2019 HISTORY: Shortness of breath TECHNIQUE: Frontal and lateral views of the chest are obtained. FINDINGS: Scattered senescent parenchymal changes noted. Hyperinflation compatible with COPD. No evidence for infiltrate. No evidence for atelectasis. Chronic elevation right hemidiaphragm. Heart size is stable. Mediastinal structures are stable and grossly unremarkable. No evidence for hilar prominence. Degenerative changes dorsal spine. IMPRESSION: 1. No evidence for acute pulmonary disease.
[2020-06-26 10:43] LABS: ALT 9 U/L (4-49); AST 17 U/L (17-59); African American GFR (CKD) 46 (>60 ml/min/1.73 sqM); Albumin 3.4 g/dL (3.5-5.0); Alkaline Phosphatase 58 U/L (38-126); Anion Gap 3 mmol/L; Blood Urea Nitrogen 59 mg/dL (9-20); C Reactive Protein <5.0 mg/L (<10.0); Calcium 9.7 mg/dL (8.4-10.2); Carbon Dioxide 39 mmol/L (22-30); Chloride 100 mmol/L (98-107); D-Dimer 0.43 mg/L FEU (<0.60); Glucose 103 mg/dL (74-99); INR 1.5 (<1.2); LDH 375 U/L (313-618); Magnesium 2.7 mg/dL (1.6-2.3); Non-African American GFR(CKD) 40 (>60 ml/min/1.73 sqM); Partial Thromboplastin Time 33.7 sec (22.0-30.0); Potassium 4.3 mmol/L (3.5-5.1); Prothrombin Time 14.6 sec (9.0-12.0); Sodium 142 mmol/L (137-145); Total Protein 6.2 g/dL (6.3-8.2)
[2020-06-26] MEDS ORDERED: IPRATROPIUM-ALBUTEROL 3 ML NEB INHALATION PRN (11:28)
[2020-06-26] MEDS ORDERED: methylPREDNISolone SOD SUCCI 125 MG/2 ML VIAL IV STA (11:28)
[2020-06-26 11:51] LABS: ABG PH 7.27 (7.35-7.45); ABG PO2 76 mmHg (83-108); ABG TCO2 44 mmol/L (19-24); Allen Test Performed? Yes
[2020-06-26 12:02] LABS: ABG HCO3 41 mmol/L (21-25); ABG Oxygen Saturation 91.9 % (94-97); ABG PCO2 88 mmHg (35-45)
[2020-06-26] MEDS ORDERED: LACTULOSE 20 GM/30 ML CUP PO PRN (13:33)
[2020-06-26] MEDS ORDERED: MAGNESIUM HYDROXIDE 2,400 MG/10 ML CUP PO PRN (13:33)
[2020-06-26] MEDS ORDERED: FUROSEMIDE 10 MG/ML 4 ML VIAL IV SCH (13:45)
--- NOTE | 2020-06-26 13:52 | P.HPIM ---
History of Present Illness patient is 59-year-old male came in with complaints of shortness of breath excessively drowsy patient is able to provide me history with easily goes intosleep. Because of which I am asked for from her ABGs and ABGs were ordered and the ABGs are showing mild the respiratory acidosis with a pCO2 of around 90. Patient is morbidly obese does have a obesity hypoventilation syndrome and sleep apnea. Patient does have history of COPD as well as chronic diastolic dysfunction. Patient's chest x-ray did not show any pneumonic infiltrate patient was comparing of cough with greenish sputum production. Patient does have extensive bilateral pedal edema probably mostly due to chronic venous stasis rather than heart failure itself I'm unable to assess JVD, BNP is around 4170. Patient uses anywhere between 4-5 L of oxygen at home. Review of Systems REVIEW OF SYSTEMS: CONSTITUTIONAL: No fever, no malaise, no fatigue. HEENT: No recent visual problems or hearing problems. Denied any sore throat. CARDIOVASCULAR: No chest pain, orthopnea, PND, no palpitations, no syncope. PULMONARY: No shortness of breath, no cough, no hemoptysis. GASTROINTESTINAL: No diarrhea, no nausea, no vomiting, no abdominal pain. NEUROLOGICAL: No headaches, no weakness, no numbness. HEMATOLOGICAL: Denies any bleeding or petechiae. GENITOURINARY: Denies any burning micturition, frequency, or urgency. MUSCULOSKELETAL/RHEUMATOLOGICAL: Denies any joint pain, swelling, or any muscle pain. ENDOCRINE: Denies any polyuria or polydipsia. The rest of the 14-point review of systems is negative. Past Medical History Past Medical History: Atrial Fibrillation, Heart Failure, COPD, Diabetes Mellitus, GERD/Reflux, Hyperlipidemia, Hypertension, Neurologic Disorder, Osteoarthritis (OA), Sleep Apnea/CPAP/BIPAP Additional Past Medical History / Comment(s): NIDDM, bilateral lower leg and feet neuropathy, gout-travels everywhere per pt History of Any Multi-Drug Resistant Organisms: MRSA Date of last positivie culture/infection: 2005 or 2007 per pt-tx while pt lived in [place] MDRO Source:: Low back Past Surgical History: Adenoidectomy, Tonsillectomy Additional Past Surgical History / Comment(s): Pyloric stenosis when he was an , bilateral knee arthroscopies, 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 Past Anesthesia/Blood Transfusion Reactions: No Reported Reaction Past Psychological History: Anxiety Smoking Status: Former smoker Past Alcohol Use History: None Reported, Rare Past Drug Use History: None Reported, Marijuana - Past Family History Father Family Medical History: Coronary Artery Disease (CAD), Diabetes Mellitus Additional Family Medical History / Comment(s): Father had heart disease. He at age 74 of possible a [place]-pt not sure. Mother Family Medical History: Congestive Heart Failure (CHF), COPD, Coronary Artery Disease (CAD) Additional Family Medical History / Comment(s): Mother had heart problems. She at age 72 yrs. She had osteoporosis. Brother(s) Family Medical History: No Reported History Sister(s) Family Medical History: Diabetes Mellitus Daughter(s) Family Medical History: No Reported History Son(s) Family Medical History: No Reported History Medications and Allergies Home Medications Medication Instructions Recorded Confirmed Type Fluticasone/Salmeterol [Advair 1 puff INHALATION RT-BID 02/10/16 06/26/20 History 250-50 Diskus] Simvastatin [Zocor] 20 mg PO HS 02/10/16 06/26/20 History Aspirin [Adult Low Dose Aspirin EC] 81 mg PO DAILY 02/03/19 06/26/20 History Dabigatran [Pradaxa] 150 mg PO BID 11/17/19 06/26/20 History Nystatin 100,000Unit/gm Cream 1 applic TOPICAL BID 11/17/19 06/26/20 History [Mycostatin Cream] traZODone HCL [Desyrel] 50 mg PO HS 11/17/19 06/26/20 History Pregabalin [Lyrica] 100 mg PO BID #6 cap 11/30/19 06/26/20 Rx Acetaminophen Tab [Tylenol] 650 mg PO Q8H 06/26/20 06/26/20 History Albuterol Sulfate [Ventolin HFA] 1 puff INHALATION RT-Q4H PRN 06/26/20 06/26/20 History Allopurinol [Zyloprim] 300 mg PO DAILY 06/26/20 06/26/20 History Cyanocobalamin [Vitamin B-12] 500 mcg PO HS 06/26/20 06/26/20 History Ferrous Sulfate [Feosol] 325 mg PO DAILY 06/26/20 06/26/20 History Folic Acid 0.4 mg PO HS 06/26/20 06/26/20 History Furosemide [Lasix] 40 mg PO BID@0900,1400 06/26/20 06/26/20 History Ipratropium-Albuterol Nebulize 3 ml INHALATION RT-TID 06/26/20 06/26/20 History [Duoneb 0.5 mg-3 mg/3 ml Soln] Lactulose [Cephulac] 20 gm PO BID 06/26/20 06/26/20 History Loratadine [Claritin] 10 mg PO DAILY 06/26/20 06/26/20 History Magnesium Hydroxide [Milk of 2,400 mg PO DAILY PRN 06/26/20 06/26/20 History Magnesia] Metoprolol Tartrate [Lopressor] 50 mg PO TID 06/26/20 06/26/20 History Omeprazole [PriLOSEC] 20 mg PO DAILY 06/26/20 06/26/20 History traMADol HCL [Ultram] 50 mg PO Q6HR PRN 06/26/20 06/26/20 History Allergies Allergy/AdvReac Type Severity Reaction Status Date / Time No Known Allergies Allergy Verified 06/26/20 10:39 Physical Exam Vitals: Vital Signs Temp Pulse Pulse Resp BP BP Pulse Ox 06/26/20 13:09 97.9 F 102 H 17 103/54 91 L 06/26/20 12:12 101 H 18 122/87 94 L 06/26/20 10:52 106 H 06/26/20 10:41 102 H 06/26/20 10:30 98.4 F 93 18 109/74 92 L 06/26/20 10:00 105 H 119/70 93 L 06/26/20 09:32 20 06/26/20 09:26 99.1 F 106 H 18 131/89 92 L Intake and Output 06/25/20 06/26/20 06/26/20 22:59 06:59 14:59 Other: Weight 195.045 kg PHYSICAL EXAMINATION: GENERAL: The patient is drowsyand oriented x3, not in any acute distress. believe wheeze HEENT: Pupils are round and equally reacting to light. EOMI. No scleral icterus. No conjunctival pallor. Normocephalic, atraumatic. No pharyngeal erythema. No thyromegaly. CARDIOVASCULAR: S1 and S2 present. No murmurs, rubs, or gallops. PULMONARY: fairly good air entry bilateral but bilateral expiratory wheezing ABDOMEN: Soft, nontender, nondistended, normoactive bowel sounds. No palpable organomegaly. MUSCULOSKELETAL: No joint swelling or deformity. EXTREMITIES: No cyanosis, clubbing, or 3+ pitting pedal edema NEUROLOGICAL: Gross neurological examination did not reveal any focal deficits. SKIN: No rashes. Results CBC & Chem 7: 06/26/20 10:05 06/26/20 10:05 Labs: Abnormal Lab Results - Last 24 Hours (Table) 06/26/20 06/26/20 06/26/20 Range/Units 09:37 10:05 10:05 RBC 3.82 L (4.30-5.90) m/uL Hgb 11.4 L (13.0-17.5) gm/dL Hct 38.0 L (39.0-53.0) % MCHC 29.9 L (31.0-37.0) g/dL RDW 17.1 H (11.5-15.5) % PT 14.6 H (9.0-12.0) sec INR 1.5 H (<1.2) APTT 33.7 H (22.0-30.0) sec ABG pH (7.35-7.45) ABG pCO2 (35-45) mmHg ABG pO2 (83-108) mmHg ABG HCO3 (21-25) mmol/L ABG Total CO2 (19-24) mmol/L ABG O2 Saturation (94-97) % Carbon Dioxide (22-30) mmol/L BUN (9-20) mg/dL Creatinine (0.66-1.25) mg/dL Glucose (74-99) mg/dL POC Glucose (mg/dL) 107 H (75-99) mg/dL Magnesium (1.6-2.3) mg/dL Total Protein (6.3-8.2) g/dL Albumin (3.5-5.0) g/dL 06/26/20 06/26/20 Range/Units 10:05 11:48 RBC (4.30-5.90) m/uL Hgb (13.0-17.5) gm/dL Hct (39.0-53.0) % MCHC (31.0-37.0) g/dL RDW (11.5-15.5) % PT (9.0-12.0) sec INR (<1.2) APTT (22.0-30.0) sec ABG pH 7.27 L (7.35-7.45) ABG pCO2 88 H* (35-45) mmHg ABG pO2 76 L (83-108) mmHg ABG HCO3 41 H* (21-25) mmol/L ABG Total CO2 44 H (19-24) mmol/L ABG O2 Saturation 91.9 L (94-97) % Carbon Dioxide 39 H (22-30) mmol/L BUN 59 H (9-20) mg/dL Creatinine 1.82 H (0.66-1.25) mg/dL Glucose 103 H (74-99) mg/dL POC Glucose (mg/dL) (75-99) mg/dL Magnesium 2.7 H (1.6-2.3) mg/dL Total Protein 6.2 L (6.3-8.2) g/dL Albumin 3.4 L (3.5-5.0) g/dL Assessment and Plan Plan: -acute on chronic hypercapnic respiratory failure: Secondary to obesity hypoventilation syndrome with bronchitis that may be some COPD exacerbation as well patient will be on steroids but will cut down the steroids from 60 every 6hrs-40 twice a day patient may not benefit from a high doses of steroids. Patient will be started on doxycycline as well. -congestive heart failure chronic diastolic dysfunction with possible mild acute exacerbation patient will be started on the Lasix 40 mg IV twice a day patient is an 40 oral twice a day -moderate pulmonary hypertension -Morbid obesity -COPD with acute exacerbation -bilateral chronic venous stasis -Chronic kidney disease stage III baseline creatinine of around 1.8 patient doesn't creatinine is around 1.8 -Respiratory acidosis secondary to assessment #1 -chronic A. fib on anticoagulation which will be resumed -Hyperlipidemia -Hypertension
[2020-06-26] MEDS ORDERED: DOXYCYCLINE 100 MG CAP PO SCH (14:00)
[2020-06-26] MEDS ORDERED: FUROSEMIDE 40 MG TAB PO SCH (14:00)
[2020-06-26] MEDS ORDERED: FAMOTIDINE 20 MG TAB PO SCH (14:00)
--- NOTE | 2020-06-26 14:44 | P.CNPUL ---
History of Present Illness History of present illness: This is a 59-year-old male patient was morbidly obese and carries a BMI 56.7. He also has chronic hypoxic and hypercapnic respiratory failure, obstructive sleep apnea, obesity hypoventilation syndrome possible COPD. Other comorbidities include previous bariatric surgery, diabetes mellitus, hypertension and hyperlipidemia and addition to chronic congestion heart failure, chronic atrial fibrillation and chronic kidney disease.. He does hospitalization was in August 2019. At that time the patient came in with massive fluid overload. His blood gases showed an acute on top of chronic hypercapnic respiratory failure and administered acidosis. He was offered BiPAP therapy. He gradually improved and was discharged home on 2 L of oxygen by nasal cannula noninvasive positive pressure ventilation in addition to his noninvasive positive pressure ventilator. The patient was brought into the emergency department because of worsening shortness of breath and diminished level of consciousness. He was very difficult to keep him arouse and he was falling asleep repetitively. In the emergency department, blood gases was done and the patient was found to have an acute on top of chronic respiratory acidosis with a pH of 7.27 and a pCO2 of 88 and pO2 of 76. This was on FiO2 of 36%. Currently the patient in the BiPAP at a pressure of 12/5. He remains somewhat lethargic yet more arousable compared to earlier. His creatinine is 1.5 with a mean of 59. The hemoglobin is at 11.4. The chest x-ray shows evidence of cardiomegaly along with scattered senescent parenchymal changes and some elevation of the right hemidiaphragm. There is also increased pulmonary vessel markings. The patient's lactic acid level is at 0.7. ProBNP level is 4170 and his serum bicarb is at 39. He is afebrile. His cardiac rhythm is atrial fibrillation with a rate of 106 without any acute ischemic changes. There is an incomplete left bundle branch block pattern. Review of Systems Comprehensive General Adult ROS Reported by Patient Constitutional Constitutional: no fever, no night sweats, no significant weight loss, no exercise intolerance, weight gain (120lbs), lethargy (sleepy and tired and the sleep is fregmented duw to pain and SOB) Eyes Eyes: no dry eyes, no vision change, no irritation ENMT Mouth/Throat: snoring, dry mouth Cardiovascular Cardiovascular: chest pain on exertion, shortness of breath when walking Respiratory Respiratory: cough, wheezing, shortness of breath, sleep apnea Gastrointestinal Gastrointestinal: no abdominal pain, no nausea, no vomiting, no constipation, normal appetite, no diarrhea, not vomiting blood, no dyspepsia, no GERD Genitourinary Genitourinary: no incontinence, no difficulty urinating, no hematuria, no in creased frequency Musculoskeletal Musculoskeletal: no muscle aches, no muscle weakness, no arthralgias/joint pain, no back pain, no swelling in the extremities Integumentary Skin: (chronic venous stasis and swelling in lower extremities bilaterally) Neurologic Neurologic: no loss of consciousness, no weakness, no numbness, no seizures, no dizziness, no migraines, no headaches, no tremor Psychiatric Psych: no depression, feeling safe in a relationship, no alcohol abuse, no anxiety, no hallucinations, no suicidal thoughts, sleep disturbances Endocrine Endocrine: no fatigue Hematologic/Lymphatic Hematologic/Lymphatic no swollen glands, no bruising, no excessive bleeding Allergic/Immunologic Allergy/Immunologic: no runny nose, no sinus pressure, no itching, no hives, no frequent sneezing ROS unobtainable: due to mental status (Unable to obtain a full review of system. The patient is currently quite obtunded on a BiPAP. He is arousable that he would drift back to sleep if left unstimulated.) Past Medical History Past Medical History: Atrial Fibrillation, Heart Failure, COPD, Diabetes Mellitus, GERD/Reflux, Hyperlipidemia, Hypertension, Neurologic Disorder, Osteoarthritis (OA), Sleep Apnea/CPAP/BIPAP Additional Past Medical History / Comment(s): NIDDM, bilateral lower leg and feet neuropathy, gout-travels everywhere per pt History of Any Multi-Drug Resistant Organisms: MRSA Date of last positivie culture/infection: 2005 or 2007 per pt-tx while pt lived in [place] MDRO Source:: Low back Past Surgical History: Adenoidectomy, Tonsillectomy Additional Past Surgical History / Comment(s): 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 Past Anesthesia/Blood Transfusion Reactions: No Reported Reaction Past Psychological History: Anxiety Smoking Status: Former smoker Past Alcohol Use History: None Reported, Rare Past Drug Use History: None Reported, Marijuana - Past Family History Father Family Medical History: Coronary Artery Disease (CAD), Diabetes Mellitus Additional Family Medical History / Comment(s): Father had heart disease. He at age 74 of possible a AR-pt not sure. Mother Family Medical History: Congestive Heart Failure (CHF), COPD, Coronary Artery Disease (CAD) Additional Family Medical History / Comment(s): Mother had heart problems. She at age 72 yrs. She had osteoporosis. Brother(s) Family Medical History: No Reported History Sister(s) Family Medical History: Diabetes Mellitus Daughter(s) Family Medical History: No Reported History Son(s) Family Medical History: No Reported History Medications and Allergies Home Medications Medication Instructions Recorded Confirmed Type Fluticasone/Salmeterol [Advair 1 puff INHALATION RT-BID 02/10/16 06/26/20 History 250-50 Diskus] Simvastatin [Zocor] 20 mg PO HS 02/10/16 06/26/20 History Aspirin [Adult Low Dose Aspirin EC] 81 mg PO DAILY 02/03/19 06/26/20 History Dabigatran [Pradaxa] 150 mg PO BID 11/17/19 06/26/20 History Nystatin 100,000Unit/gm Cream 1 applic TOPICAL BID 11/17/19 06/26/20 History [Mycostatin Cream] traZODone HCL [Desyrel] 50 mg PO HS 11/17/19 06/26/20 History Pregabalin [Lyrica] 100 mg PO BID #6 cap 11/30/19 06/26/20 Rx Acetaminophen Tab [Tylenol] 650 mg PO Q8H 06/26/20 06/26/20 History Albuterol Sulfate [Ventolin HFA] 1 puff INHALATION RT-Q4H PRN 06/26/20 06/26/20 History Allopurinol [Zyloprim] 300 mg PO DAILY 06/26/20 06/26/20 History Cyanocobalamin [Vitamin B-12] 500 mcg PO HS 06/26/20 06/26/20 History Ferrous Sulfate [Feosol] 325 mg PO DAILY 06/26/20 06/26/20 History Folic Acid 0.4 mg PO HS 06/26/20 06/26/20 History Furosemide [Lasix] 40 mg PO BID@0900,1400 06/26/20 06/26/20 History Ipratropium-Albuterol Nebulize 3 ml INHALATION RT-TID 06/26/20 06/26/20 History [Duoneb 0.5 mg-3 mg/3 ml Soln] Lactulose [Cephulac] 20 gm PO BID 06/26/20 06/26/20 History Loratadine [Claritin] 10 mg PO DAILY 06/26/20 06/26/20 History Magnesium Hydroxide [Milk of 2,400 mg PO DAILY PRN 06/26/20 06/26/20 History Magnesia] Metoprolol Tartrate [Lopressor] 50 mg PO TID 06/26/20 06/26/20 History Omeprazole [PriLOSEC] 20 mg PO DAILY 06/26/20 06/26/20 History traMADol HCL [Ultram] 50 mg PO Q6HR PRN 06/26/20 06/26/20 History Allergies Allergy/AdvReac Type Severity Reaction Status Date / Time No Known Allergies Allergy Verified 06/26/20 10:39 Physical Exam Vitals: Vital Signs Temp Pulse Pulse Resp BP BP Pulse Ox 06/26/20 13:09 97.9 F 102 H 17 103/54 91 L 06/26/20 12:12 101 H 18 122/87 94 L 06/26/20 10:52 106 H 06/26/20 10:41 102 H 06/26/20 10:30 98.4 F 93 18 109/74 92 L 06/26/20 10:00 105 H 119/70 93 L 06/26/20 09:32 20 06/26/20 09:26 99.1 F 106 H 18 131/89 92 L Intake and Output 06/25/20 06/26/20 06/26/20 22:59 06:59 14:59 Other: Weight 195.045 kg Patient is morbidly obese with a BMI of 56.7. His very much lethargic and he shows signs of CO2 narcosis. Unable to follow commands. He would arouse upon repeated stimulation unit drift back to sleep if left alone. He is tolerating a BiPAP which is currently set at a pressure of 12/5 cm of water. No signs of any acute respiratory distress. No tachypnea. Resting comfortably in bed. Head exam was generally normal. There was no scleral icterus or corneal arcus. Mucous membranes were moist. Neck was supple and without jugular venous distension, thyromegaly, or carotid bruits. Carotids were easily palpable bilaterally. There was no adenopathy. The patient has a Mallampati class IV and there is no goiter or neck masses. Lungs sounds are diminished in lung bases bilaterally. Crackles or wheezes coul d not be appreciated yet for the most part the breast on that equal and symmetrical. Cardiac exam revealed the PMI to be normally situated and sized. The rhythm was irregular and was consistent with atrial fibrillation. and no extrasystoles were noted during several minutes of auscultation. The first and second heart sounds were normal and physiologic splitting of the second heart sound was noted . There were no murmurs, rubs Abdomen is morbidly obese and orders cannot be accurately palpated. There is abdominal wall edema. There is no direct tenderness. No rebound tenderness or guarding at this point in time. Extremities revealed +2-3 pitting edema in all 4 extremities more so in the lowe r extremity is bilaterally especially in the thighs and just below the knee. There is also significant erythema and skin ulceration involving the right lower extremity above the ankle extending anteriorly over the right lower extremity and a stage I to 2 open wound anteriorly without evidence of any active drainage or purulent material. No rashes. Pulses are diminished in all 4 extremities. Neurologically, the patient is arousable. He withdraws to painful stimulation. He was back to sleep if left ostiomeatal. Pupils are equal and reactive to light. Neurologic exam essentially is nonfocal. No facial asymmetry. Results - Laboratory Findings CBC and BMP: 06/26/20 10:05 06/26/20 10:05 ABG ABG pH 7.27 (7.35-7.45) L 06/26/20 11:48 ABG pCO2 88 mmHg (35-45) H* 06/26/20 11:48 ABG pO2 76 mmHg (83-108) L 06/26/20 11:48 ABG O2 Saturation 91.9 % (94-97) L 06/26/20 11:48 PT/INR, D-dimer PT 14.6 sec (9.0-12.0) H 06/26/20 10:05 INR 1.5 (<1.2) H 06/26/20 10:05 D-Dimer 0.43 mg/L FEU (<0.60) 06/26/20 10:05 Abnormal lab findings: Abnormal Labs 06/26/20 06/26/2020 09:37 10:05 10:05 RBC 3.82 L Hgb 11.4 L Hct 38.0 L MCHC 29.9 L RDW 17.1 H PT 14.6 H INR 1.5 H APTT 33.7 H ABG pH ABG pCO2 ABG pO2 ABG HCO3 ABG Total CO2 ABG O2 Saturation Carbon Dioxide BUN Creatinine Glucose POC Glucose (mg/dL) 107 H Magnesium Total Protein Albumin 06/26/20 06/26/20 10:05 11:48 RBC Hgb Hct MCHC RDW PT INR APTT ABG pH 7.27 L ABG pCO2 88 H* ABG pO2 76 L ABG HCO3 41 H* ABG Total CO2 44 H ABG O2 Saturation 91.9 L Carbon Dioxide 39 H BUN 59 H Creatinine 1.82 H Glucose 103 H POC Glucose (mg/dL) Magnesium 2.7 H Total Protein 6.2 L Albumin 3.4 L - Diagnostic Findings Chest x-ray: image reviewed Assessment and Plan Plan: 1 altered mental status secondary to acute on chronic hypercapnic respiratory failure. The patient's blood gas shows acute on top of chronic respiratory acidosis. The patient's chest x-ray shows pulmonary vessel congestion/ and clinically the patient has signs of fluid overload. 2 chronic hypoxic respiratory failure 3 chronic hypercapnic respiratory failure 4 obstructive sleep apnea syndrome/obesity hypoventilation syndrome. The patient should have a noninvasive positive pressure ventilator at home. I'm not sure if he has been using any such device at home and this is something that we need to follow-up on after he is fully aroused. Currently is on a BiPAP from the hospital pressure of 12/5 cm of water. 3 chronic cor pulmonale pulmonary pressure on the most recent echocardiogram is 48 mm of mercury, right-sided cardiac structures are dilated. The patient also has a component of LV dysfunction with an ejection fraction of 50% 4 morbid obesity previous bariatric surgery , gastric sleeve ,with initial successful weight loss however the patient subsequently started gaining weight 5 chronic obstructive lung disease 6 atrial fibrillation rate controlled, and the patient is on long-term anticoagulation with Pradaxa 7 history of bariatric surgical procedure , Previous gastric sleeve (unsuccessful) 8 hypertensive disorder 9 hyperlipidemia 10 chronic kidney disease, stage III 11 Chronic edema of lower extremity 12 chronic venous ulceration of the right lower extremity stage I to 2 over the anterior aspect of the right lower extremity 13 diabetes mellitus Plan Transfer the patient intensive care unit We'll start the patient Lasix drip at 5 mg an hour Utilizes BiPAP at the same level of pressure Titrate FiO2 to maintain saturation above 90% Insert an art line and monitor the patient's blood gases periodically Continue DuoNeb the right seated sound the clock Continue Pradaxa for long-term and to coagulation We will evaluate this patien for a noninvasive positive pressure ventilator at time of discharge We'll continue to follow
[2020-06-26] MEDS: IPRATROPIUM-ALBUTEROL 3 ML NEB INHALATION SCH ×3 (14:55→19:22)
[2020-06-26 14:59] LABS: Glucose,Whole Blood 122 mg/dL (75-99)
[2020-06-26] MEDS: FUROSEMIDE 100 MG in SODIUM CHLORIDE 0.9% 90 ML IV SCH (15:00)
--- NOTE | 2020-06-26 15:10 | P.PCN ---
Date of Procedure: 06/26/20 Preoperative Diagnosis: Acute on top of chronic hypercapnic respiratory failure Postoperative Diagnosis: Same Procedure(s) Performed: Insertion of an arterial line Anesthesia: local Surgeon: Luh Fernandez Protective Signal Operator #1: Sia Torres Estimated Blood Loss (ml): 0 Pathology: other Condition: critical Disposition: ICU Operative Findings: Indication: Hemodynamic monitoring. A time-out was completed verifying correct patient, procedure, site, positio glo, and implant(s) or special equipment if applicable. Allens test was performed to ensure adequate perfusion. The patients right wrist was prepped and draped in sterile fashion. 1% Lidocaine was used to anesthetize the area. An 18G Arrow arterial line was introduced into the radial artery. The catheter was threaded over the guide wire and the needle was removed with appropriate pulsatile blood return. Blood loss was minimal. The catheter was then sutured in place to the skin and a sterile dressing applied. Perfusion to the extremity distal to the point of catheter insertion was checked and found to be adequate. The patient tolerated the procedure well and there were no complications.
[2020-06-26 15:15] LABS: ABG Base Excess 13.3 mmol/L; ABG PH 7.26 (7.35-7.45); ABG PO2 64 mmHg (83-108); ABG TCO2 43 mmol/L (19-24); Allen Test Performed? Yes
[2020-06-26 15:18] LABS: ABG PCO2 90 mmHg (35-45)
[2020-06-26 15:19] LABS: ABG HCO3 40 mmol/L (21-25)
[2020-06-26] MEDS: ACETAMINOPHEN TAB 325 MG TAB PO SCH (16:00)
[2020-06-26] MEDS: METOPROLOL TARTRATE 50 MG TAB PO SCH ×2 (17:21→22:00)
[2020-06-26] MEDS ORDERED: METOPROLOL TARTRATE 5 MG/5 ML VIAL IVP PRN (17:22)
[2020-06-26 17:27] LABS: Ferritin 73.9 ng/mL (22.0-322.0)
[2020-06-26] MEDS ORDERED: methylPREDNISolone SOD SUCCI 125 MG/2 ML VIAL IV SCH (18:00)
[2020-06-26 18:27] LABS: Glucose,Whole Blood 144 mg/dL (75-99)
[2020-06-26] MEDS ORDERED: SYMBICORT 80-4.5 MCG INHALER INHALATION SCH (20:00)
[2020-06-26] MEDS ORDERED: IPRATROPIUM-ALBUTEROL 3 ML NEB INHALATION SCH (20:00)
[2020-06-26] MEDS: DOXYCYCLINE 100 MG in SODIUM CHLORIDE 0.9% 100 ML IVPB SCH (20:15)
[2020-06-26] MEDS: methylPREDNISolone SOD SUCCI 125 MG/2 ML VIAL IV SCH (20:15)
[2020-06-26] MEDS: PREGABALIN 100 MG CAP PO SCH (21:38)
[2020-06-26] MEDS: ATORVASTATIN 10 MG TAB PO SCH (21:39)
[2020-06-26] MEDS: FOLIC ACID 1 MG TAB PO SCH (21:39)
[2020-06-26] MEDS: CYANOCOBALAMIN 500 MCG TAB PO SCH (21:39)
[2020-06-26] MEDS: NYSTATIN 100,000UNIT/GM CREAM 30 GM TUBE TOPICAL SCH (21:52)
[2020-06-26] MEDS: DABIGATRAN 150 MG CAP PO SCH (21:52)
[2020-06-27] MEDS: ACETAMINOPHEN TAB 325 MG TAB PO SCH ×3 (00:16→16:43)
[2020-06-27 05:16] LABS: ABG Base Excess 12.6 mmol/L; ABG HCO3 38 mmol/L (21-25); ABG Oxygen Saturation 95.4 % (94-97); ABG PCO2 64 mmHg (35-45); ABG PH 7.38 (7.35-7.45); ABG PO2 76 mmHg (83-108); ABG TCO2 40 mmol/L (19-24); Allen Test Performed? Yes
[2020-06-27 05:23] LABS: Anisocytosis Slight; HCT 37.4 % (39.0-53.0); HGB 11.3 gm/dL (13.0-17.5); Hypochromasia Marked; MCH 30.1 pg (25.0-35.0); MCHC 30.2 g/dL (31.0-37.0); MCV 99.7 fL (80.0-100.0); Macrocytosis Slight; Mean Platelet Volume 9.1; Platelet Count 178 k/uL (150-450); RBC 3.75 m/uL (4.30-5.90); RDW 16.9 % (11.5-15.5); WBC 4.3 k/uL (3.8-10.6)
[2020-06-27] MEDS: FUROSEMIDE 100 MG in SODIUM CHLORIDE 0.9% 90 ML IV SCH ×2 (05:33→19:51)
[2020-06-27 05:47] LABS: Calcium 9.5 mg/dL (8.4-10.2); Potassium 4.6 mmol/L (3.5-5.1)
[2020-06-27 06:58] LABS: Glucose,Whole Blood 148 mg/dL (75-99)
[2020-06-27] MEDS: PANTOPRAZOLE 40 MG TABLET PO SCH (06:58)
[2020-06-27] MEDS: IPRATROPIUM-ALBUTEROL 3 ML NEB INHALATION SCH ×4 (07:40→20:00)
[2020-06-27] MEDS: ASPIRIN 81 MG PO SCH (08:37)
[2020-06-27] MEDS: DABIGATRAN 150 MG CAP PO SCH ×2 (08:37→20:39)
[2020-06-27] MEDS: allopurinoL 300 MG TAB PO SCH (08:37)
[2020-06-27] MEDS: METOPROLOL TARTRATE 50 MG TAB PO SCH ×3 (08:38→22:31)
[2020-06-27] MEDS: FAMOTIDINE 20 MG TAB PO SCH (08:38)
[2020-06-27] MEDS: NYSTATIN 100,000UNIT/GM CREAM 30 GM TUBE TOPICAL SCH ×2 (08:38→20:40)
[2020-06-27] MEDS: methylPREDNISolone SOD SUCCI 125 MG/2 ML VIAL IV SCH (08:38)
[2020-06-27] MEDS: PREGABALIN 100 MG CAP PO SCH ×2 (08:38→20:39)
[2020-06-27] MEDS ORDERED: FERROUS SULFATE 325 MG TAB PO SCH (09:00)
[2020-06-27] MEDS: DOXYCYCLINE 100 MG in SODIUM CHLORIDE 0.9% 100 ML IVPB SCH ×2 (09:13→20:38)
[2020-06-27] MEDS: FERROUS SULFATE 325 MG TAB PO SCH (11:27)
[2020-06-27 11:34] LABS: Glucose,Whole Blood 176 mg/dL (75-99)
--- NOTE | 2020-06-27 11:58 | CDI ---
Documentation Clarification Form Date: 06/27/2020 11:24:13 AM From: Marj Bradford RN CCDS Admit Date: 06/26/2020 11:43:00 AM Patient Name: Arnold Alfredo Visit Number: [id number] Discharge Date: ATTENTION: The Clinical Documentation Specialists (CDI) and [facility] Coding Staff appreciate your assistance in clarifying documentation. Please respond to the clarification below the line at the bottom and electronically sign. The CDI & [facility] Coding staff will review the response and follow-up if needed. Please note: Queries are made part of the Legal Health Record. If you have any questions, please contact the author of this message via ITS. Dr. Luh Fernandez Altered Mental Status was documented in your consult 06/26. History/Risk Factors: 59-year-old male presents to the ED with difficulty in breathing. Onset of symptoms a week or more patient has cough with occasional green sputum. Clinical Indicators: 06/26 Pulmonology Consult: Altered mental status secondary to acute on chronic hypercapnic respiratory failure. 06/26 Labs: Cr 1.82, BNP 4170; Blood Gas Left Radial: ABG pH: 7.27; pCO2 88; pO2 76; HCO3 41; CO2 44; ABG O2 Sat 91.9; 06/26 Pulmonary Consult: The patients chest x-ray shows pulmonary vessel congestion/ and clinically the patient has signs of fluid overload. 06/26: 09:26 VSS: BP: 131/89; HR: 106; Temp: 99.1 Oral; RR: 18; Spo2 92% 4L nasal cannula 06/26: 12:12 VSS: RR: 18; Spo2 94% Bipap Treatment: 06/26: 4L Nasal Cannula, BiPap; Lasix IV; Duoneb ; Symbicort; Lopressor; In your professional opinion, please clarify the etiology of the Altered Mental Status, if known. Metabolic Encephalopathy (specify Type and Underlying Medical Illness) Other condition (please specify) Unable to determine (Last Revision: January 2018) Altered mental status secondary to acute on chronic hypercapnic respiratory failure. ie CO2 narcosis MTDD
--- NOTE | 2020-06-27 12:10 | P.PN ---
Subjective Progress Note Date: 06/27/20 This is a 59-year-old male patient was morbidly obese and carries a BMI 56.7. He also has chronic hypoxic and hypercapnic respiratory failure, obstructive sleep apnea, obesity hypoventilation syndrome possible COPD. Other comorbidities include previous bariatric surgery, diabetes mellitus, hypertensio n and hyperlipidemia and addition to chronic congestion heart failure, chronic atrial fibrillation and chronic kidney disease.. He does hospitalization was in August 2019. At that time the patient came in with massive fluid overload. His blood gases showed an acute on top of chronic hypercapnic respiratory failure and administered acidosis. He was offered BiPAP therapy. He gradually improved and was discharged home on 2 L of oxygen by nasal cannula noninvasive positive pressure ventilation in addition to his noninvasive positive pressure ventilator. The patient was brought into the emergency department because of worsening shortness of breath and diminished level of consciousness. He was very difficult to keep him arouse and he was falling asleep repetitively. In the emergency department, blood gases was done and the patient was found to have an acute on top of chronic respiratory acidosis with a pH of 7.27 and a pCO2 of 88 and pO2 of 76. This was on FiO2 of 36%. Currently the patient in the BiPAP at a pressure of 12/5. He remains somewhat lethargic yet more arousable com pared to earlier. His creatinine is 1.5 with a mean of 59. The hemoglobin is at 11.4. The chest x-ray shows evidence of cardiomegaly along with scattered senescent parenchymal changes and some elevation of the right hemidiaphragm. There is also increased pulmonary vessel markings. The patient's lactic acid level is at 0.7. ProBNP level is 4170 and his serum bicarb is at 39. He is afebrile. His cardiac rhythm is atrial fibrillation with a rate of 106 without any acute ischemic changes. There is an incomplete left bundle branch block pattern. On 06/27/2020, the patient is much improved compared to yesterday. He got transferred to the intensive care unit as the patient was quite obtunded and lethargic and he was in hypercapnic the story failure and CO2 narcosis. Based on this, the patient was started on Lasix drip at 5 mg an hour. He has made excellent urine output overnight and the patient is a negative fluid balance of at least 2 L over the past 24 hours. He was also supported with a BiPAP and he was receiving BiPAP at a pressure of 12/5 cm of water and FiO2 of 40%. A repeat blood gases from today showed a pH of 7.38 with a pCO2 of 64 and pO2 of 76. Awake and alert and following commands and answering questions. The serum bicarb currently is at 36. BUN is a 56 a creatinine of 1.5. Lasix drip is at 5 mg an hour. No other significant issues. Following commands and answering questions. Objective - Vital Signs Vital signs: Vital Signs Temp 98.1 F 06/27/20 04:00 Pulse 84 06/27/20 11:49 Resp 18 06/27/20 07:00 BP 109/83 06/27/20 04:00 Pulse Ox 93 L 06/27/20 07:00 Intake & Output 06/26/20 06/27/20 06/27/20 18:59 06:59 18:59 Intake Total 25 504.75 8 Output Total 1150 2370 175 Balance -1125 -1865.25 -167 Weight 195.045 kg 204.95 kg 204.95 kg Intake: IV 25 182 8 Doxycycline 100 mg In 100 Sodium Chloride 0.9% 100 ml @ 100 mls/hr IVPB Q12HR [facility] Rx#:[id number] Furosemide 100 mg In 25 55 5 Sodium Chloride 0.9% 90 ml @ 5 MG/HR 5 mls/hr IV .Q20H [facility] Rx#:[id number] Pressure Bags 0.9 27 3 Intake, IV Titration 72.75 Amount Furosemide 100 mg In 72.75 Sodium Chloride 0.9% 90 ml @ 5 MG/HR 5 mls/hr IV .Q20H [facility] Rx#:[id number] Oral 250 Output: Urine 1150 2370 175 ABP, PAP, CO, CI - Last Documented Arterial Blood Pressure 137/59 - Exam Patient is morbidly obese with a BMI of 56.7. Awake and alert and following commands. He is currently on 6 L of oxygen by nasal cannula. Head exam was generally normal. There was no scleral icterus or corneal arcus. Mucous membranes were moist. Neck was supple and without jugular venous distension, thyromegaly, or carotid bruits. Carotids were easily palpable bilaterally. There was no adenopathy. The patient has a Mallampati class IV and there is no goiter or neck masses. Lungs sounds are diminished in lung bases bilaterally. Crackles or wheezes could not be appreciated yet for the most part the breast on that equal and symmetrical. Cardiac exam revealed the PMI to be normally situated and sized. The rhythm was irregular and was consistent with atrial fibrillation. and no extrasystoles were noted during several minutes of auscultation. The first and second heart sounds were normal and physiologic splitting of the second heart sound was noted. There were no murmurs, rubs Abdomen is morbidly obese and orders cannot be accurately palpated. There is abdominal wall edema. There is no direct tenderness. No rebound tenderness or guarding at this point in time. Extremities revealed +2-3 pitting edema in all 4 extremities more so in the lower extremity is bilaterally especially in the thighs and just below the knee. There is also significant erythema and skin ulceration involving the right lower extremity above the ankle extending anteriorly over the right lower extremity and a stage I to 2 open wound anteriorly without evidence of any active drainage or purulent material. No rashes. Pulses are diminished in all 4 extremities. Neurologically, alert and oriented 3 without any focal neurological deficit. - Labs CBC & Chem 7: 06/27/20 05:05 06/27/20 05:05 Labs: Abnormal Lab Results - Last 24 Hours (Table) 06/26/20 06/26/20 06/26/20 Range/Units 10:05 11:48 14:58 RBC (4.30-5.90) m/uL Hgb (13.0-17.5) gm/dL Hct (39.0-53.0) % MCHC (31.0-37.0) g/dL RDW (11.5-15.5) % ABG pH 7.27 L (7.35-7.45) ABG pCO2 88 H* (35-45) mmHg ABG pO2 76 L (83-108) mmHg ABG HCO3 41 H* (21-25) mmol/L ABG Total CO2 44 H (19-24) mmol/L ABG O2 Saturation 91.9 L (94-97) % Carbon Dioxide (22-30) mmol/L BUN (9-20) mg/dL Creatinine (0.66-1.25) mg/dL Glucose (74-99) mg/dL POC Glucose (mg/dL) 122 H (75-99) mg/dL Procalcitonin 0.13 H (0.02-0.09) ng/mL 06/26/20 06/26/20 06/27/20 Range/Units 15:06 18:25 05:05 RBC 3.75 L (4.30-5.90) m/uL Hgb 11.3 L (13.0-17.5) gm/dL Hct 37.4 L (39.0-53.0) % MCHC 30.2 L (31.0-37.0) g/dL RDW 16.9 H (11.5-15.5) % ABG pH 7.26 L (7.35-7.45) ABG pCO2 90 H* (35-45) mmHg ABG pO2 64 L (83-108) mmHg ABG HCO3 40 H* (21-25) mmol/L ABG Total CO2 43 H (19-24) mmol/L ABG O2 Saturation 89.0 L (94-97) % Carbon Dioxide (22-30) mmol/L BUN (9-20) mg/dL Creatinine (0.66-1.25) mg/dL Glucose (74-99) mg/dL POC Glucose (mg/dL) 144 H (75-99) mg/dL Procalcitonin (0.02-0.09) ng/mL 06/27/20 06/27/20 06/27/20 Range/Units 05:05 05:12 06:56 RBC (4.30-5.90) m/uL Hgb (13.0-17.5) gm/dL Hct (39.0-53.0) % MCHC (31.0-37.0) g/dL RDW (11.5-15.5) % ABG pH (7.35-7.45) ABG pCO2 64 H (35-45) mmHg ABG pO2 76 L (83-108) mmHg ABG HCO3 38 H (21-25) mmol/L ABG Total CO2 40 H (19-24) mmol/L ABG O2 Saturation (94-97) % Carbon Dioxide 36 H (22-30) mmol/L BUN 56 H (9-20) mg/dL Creatinine 1.54 H (0.66-1.25) mg/dL Glucose 151 H (74-99) mg/dL POC Glucose (mg/dL) 148 H (75-99) mg/dL Procalcitonin (0.02-0.09) ng/mL 06/27/20 Range/Units 11:32 RBC (4.30-5.90) m/uL Hgb (13.0-17.5) gm/dL Hct (39.0-53.0) % MCHC (31.0-37.0) g/dL RDW (11.5-15.5) % ABG pH (7.35-7.45) ABG pCO2 (35-45) mmHg ABG pO2 (83-108) mmHg ABG HCO3 (21-25) mmol/L ABG Total CO2 (19-24) mmol/L ABG O2 Saturation (94-97) % Carbon Dioxide (22-30) mmol/L BUN (9-20) mg/dL Creatinine (0.66-1.25) mg/dL Glucose (74-99) mg/dL POC Glucose (mg/dL) 176 H (75-99) mg/dL Procalcitonin (0.02-0.09) ng/mL Assessment and Plan Plan: 1 altered mental status secondary to acute on chronic hypercapnic respiratory failure. The patient's blood gas shows acute on top of chronic respiratory acidosis. The patient's chest x-ray shows pulmonary vessel congestion/ and clinically the patient has signs of fluid overload. The patient was treated with BiPAP and he was also diuresed with Lasix drip. Blood gases improved. The patient is in a negative fluid balance. Awake and alert this morning. No focal neurological deficit and mental status improved. 2 chronic hypoxic respiratory failure 3 chronic hypercapnic respiratory failure 4 obstructive sleep apnea syndrome/obesity hypoventilation syndrome. The patient is in a senior living on a BiPAP at a pressure of 10/6 cm of water. 3 chronic cor pulmonale pulmonary pressure on the most recent echocardiogram is 48 mm of mercury, right-sided cardiac structures are dilated. The patient also has a component of LV dysfunction with an ejection fraction of 50% 4 morbid obesity previous bariatric surgery , gastric sleeve ,with initial successful weight loss however the patient subsequently started gaining weight 5 chronic obstructive lung disease 6 atrial fibrillation rate controlled, and the patient is on long-term anticoagulation with Pradaxa 7 history of bariatric surgical procedure , Previous gastric sleeve (unsuccessful) 8 hypertensive disorder 9 hyperlipidemia 10 chronic kidney disease, stage III 11 Chronic edema of lower extremity 12 chronic venous ulceration of the right lower extremity stage I to 2 over the anterior aspect of the right lower extremity 13 diabetes mellitus Plan Continue Lasix drip for another 24 hours BiPAP overnight and sent pressure setting Repeat blood gases again in the morning monitor BUN and creatinine and electrolytes Monitor mental status Keep the patient ICU for 24 hours. Continue supportive care including 1 catheter lower extremities.
--- NOTE | 2020-06-27 13:07 | P.PN ---
Subjective 59-year-old male came in with complaints of shortness of breath excessively drowsy patient is able to provide me history with easily goes intosleep. Because of which I am asked for from her ABGs and ABGs were ordered and the ABGs are showing mild the respiratory acidosis with a pCO2 of around 90. Patient is morbidly obese does have a obesity hypoventilation syndrome and sleep apnea. Patient does have history of COPD as well as chronic diastolic dysfunction. Patient's chest x-ray did not show any pneumonic infiltrate patient was comparing of cough with greenish sputum production. Patient does have extensive bilateral pedal edema probably mostly due to chronic venous stasis rather than heart failure itself I'm unable to assess JVD, BNP is around 4170. Patient uses anywhere between 4-5 L of oxygen at home. 06/22/2020 Patient respiratory acidosis and hypercapnia improved with BiPAP patient was switched to 6 L still using BiPAP and as-needed basis when he sleeps. Patient apparently will require noninvasive ventilationeven after discharge.patient is much more awake much less sleepy today Constitutional: Denied any fatigue denied any fever. Cardio vascular: denied any chest pain, palpitations Gastrointestinal denied any nausea vomiting Pulmonary: Denied any shortness of breath cough Neurologic denied any new focal deficits All inpatient medications were reviewed and appropriate changes in these medications as dictated in the interval history and assessment and plan. Objective - Vital Signs Vital signs: Vital Signs Temp 98.1 F 06/27/20 04:00 Pulse 84 06/27/20 11:49 Resp 18 06/27/20 07:00 BP 109/83 06/27/20 04:00 Pulse Ox 93 L 06/27/20 07:00 Intake & Output 06/26/20 06/27/20 06/27/20 18:59 06:59 18:59 Intake Total 25 504.75 8 Output Total 1150 2370 175 Balance -1125 -1865.25 -167 Weight 195.045 kg 204.95 kg 204.95 kg Intake: IV 25 182 8 Doxycycline 100 mg In 100 Sodium Chloride 0.9% 100 ml @ 100 mls/hr IVPB Q12HR [facility] Rx#:[id number] Furosemide 100 mg In 25 55 5 Sodium Chloride 0.9% 90 ml @ 5 MG/HR 5 mls/hr IV .Q20H [facility] Rx#:[id number] Pressure Bags 0.9 27 3 Intake, IV Titration 72.75 Amount Furosemide 100 mg In 72.75 Sodium Chloride 0.9% 90 ml @ 5 MG/HR 5 mls/hr IV .Q20H [facility] Rx#:[id number] Oral 250 Output: Urine 1150 2370 175 ABP, PAP, CO, CI - Last Documented Arterial Blood Pressure 137/59 - Exam PHYSICAL EXAMINATION: GENERAL: The patient is sleeping with the BiPAP on patient apparently is more awake today HEENT: Pupils are round and equally reacting to light. EOMI. No scleral icterus. No conjunctival pallor. Normocephalic, atraumatic. No pharyngeal erythema. No thyromegaly. CARDIOVASCULAR: S1 and S2 present. No murmurs, rubs, or gallops. PULMONARY: decreased bilateral wheezing fairly good air entry bilateral lung jeffrey ABDOMEN: Soft, nontender, nondistended, normoactive bowel sounds. No palpable organomegaly. MUSCULOSKELETAL: No joint swelling or deformity. EXTREMITIES: No cyanosis, clubbing, or 3+ pitting pedal edema NEUROLOGICAL: Gross neurological examination did not reveal any focal deficits. SKIN: No rashes. - Labs CBC & Chem 7: 06/27/20 05:05 06/27/20 05:05 Labs: Abnormal Lab Results - Last 24 Hours (Table) 06/26/20 06/26/20 06/26/20 Range/Units 10:05 14:58 15:06 RBC (4.30-5.90) m/uL Hgb (13.0-17.5) gm/dL Hct (39.0-53.0) % MCHC (31.0-37.0) g/dL RDW (11.5-15.5) % ABG pH 7.26 L (7.35-7.45) ABG pCO2 90 H* (35-45) mmHg ABG pO2 64 L (83-108) mmHg ABG HCO3 40 H* (21-25) mmol/L ABG Total CO2 43 H (19-24) mmol/L ABG O2 Saturation 89.0 L (94-97) % Carbon Dioxide (22-30) mmol/L BUN (9-20) mg/dL Creatinine (0.66-1.25) mg/dL Glucose (74-99) mg/dL POC Glucose (mg/dL) 122 H (75-99) mg/dL Procalcitonin 0.13 H (0.02-0.09) ng/mL 06/26/20 06/27/20 06/27/20 Range/Units 18:25 05:05 05:05 RBC 3.75 L (4.30-5.90) m/uL Hgb 11.3 L (13.0-17.5) gm/dL Hct 37.4 L (39.0-53.0) % MCHC 30.2 L (31.0-37.0) g/dL RDW 16.9 H (11.5-15.5) % ABG pH (7.35-7.45) ABG pCO2 (35-45) mmHg ABG pO2 (83-108) mmHg ABG HCO3 (21-25) mmol/L ABG Total CO2 (19-24) mmol/L ABG O2 Saturation (94-97) % Carbon Dioxide 36 H (22-30) mmol/L BUN 56 H (9-20) mg/dL Creatinine 1.54 H (0.66-1.25) mg/dL Glucose 151 H (74-99) mg/dL POC Glucose (mg/dL) 144 H (75-99) mg/dL Procalcitonin (0.02-0.09) ng/mL 06/27/20 06/27/20 06/27/20 Range/Units 05:12 06:56 11:32 RBC (4.30-5.90) m/uL Hgb (13.0-17.5) gm/dL Hct (39.0-53.0) % MCHC (31.0-37.0) g/dL RDW (11.5-15.5) % ABG pH (7.35-7.45) ABG pCO2 64 H (35-45) mmHg ABG pO2 76 L (83-108) mmHg ABG HCO3 38 H (21-25) mmol/L ABG Total CO2 40 H (19-24) mmol/L ABG O2 Saturation (94-97) % Carbon Dioxide (22-30) mmol/L BUN (9-20) mg/dL Creatinine (0.66-1.25) mg/dL Glucose (74-99) mg/dL POC Glucose (mg/dL) 148 H 176 H (75-99) mg/dL Procalcitonin (0.02-0.09) ng/mL Microbiology - Last 24 Hours (Table) 06/26/20 10:05 Blood Culture - Preliminary Blood No Growth after 24 hours Assessment and Plan Plan: -acute on chronic hypercapnic respiratory failure: Secondary to obesity hypoventilation syndrome with bronchitis that may be some COPD exacerbation patient will be continued on doxycycline and the steroids now for now -congestive heart failure chronic diastolic dysfunction with possible mild acute exacerbationpatient was started on Lasix drip and patient has improvement in kidney function after Lasix -moderate pulmonary hypertension -Morbid obesity -COPD with acute exacerbation -bilateral chronic venous stasis -Chronic kidney disease stage III baseline creatinine of around 1.8 , patient had acute renal failure secondary to prerenal azotemia from heart failure improved with Lasix. -Respiratory acidosis secondary to assessment #1improved now -chronic A. fib on anticoagulation which will be resumed -Hyperlipidemia -Hypertension
--- NOTE | 2020-06-27 14:33 | P.NPCON ---
History of Present Illness - Reason for Consult acute renal failure, chronic renal failure - History of Present Illness Reason for consultation: Acute kidney injury on chronic kidney disease History of present illness: Patient is a 59-year-old male seen in consultation for acute kidney injury and chronic kidney disease. Patient has chronic kidney disease stage III with baseline creatinine near 1.5. Creatinine was 1.8 on admission and is 1.54 today. Patient presented to the hospital with shortness of breath as well as worsening of lower extremity edema. Patient states he was taking Lasix at the [facility] but his edema continued to worsen. He also complains of decreased urine output prior to admission. He is currently maintained on Lasix drip at 5 mL an hour and is nonoliguric. Urine output is about 75 to over 100 mL an hour. Blood pressure stable. No fever or chills. No cough. No vomiting or diarrhea. Denies use of nonsteroidals. Overall feels better. Edema slowly improving. Vital signs are stable. General: The patient appeared well nourished and normally developed. HEENT: Head exam is unremarkable. Neck is without jugular venous distension. LUNGS: Breath sounds decreased. HEART: Rate and Rhythm are regular. ABDOMEN: Soft, nontender. Obese. EXTREMITITES: 2+ edema. Lower extremities wrapped. No drainage noted. Past Medical History Past Medical History: Atrial Fibrillation, Heart Failure, COPD, Diabetes Mellitus, GERD/Reflux, Hyperlipidemia, Hypertension, Neurologic Disorder, Osteoarthritis (OA), Sleep Apnea/CPAP/BIPAP Additional Past Medical History / Comment(s): NIDDM, bilateral lower leg and feet neuropathy, gout-travels everywhere per pt History of Any Multi-Drug Resistant Organisms: MRSA Date of last positivie culture/infection: 2005 or 2007 per pt-tx while pt lived in [place] MDRO Source:: Low back Past Surgical History: Adenoidectomy, Tonsillectomy Additional Past Surgical History / Comment(s): Pyloric stenosis when he was an , bilateral knee arthroscopies, 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 Past Anesthesia/Blood Transfusion Reactions: No Reported Reaction Past Psychological History: Anxiety Smoking Status: Former smoker Past Alcohol Use History: None Reported, Rare Past Drug Use History: None Reported, Marijuana - Past Family History Father Family Medical History: Coronary Artery Disease (CAD), Diabetes Mellitus Additional Family Medical History / Comment(s): Father had heart disease. He at age 74 of possible a RI-pt not sure. Mother Family Medical History: Congestive Heart Failure (CHF), COPD, Coronary Artery Disease (CAD) Additional Family Medical History / Comment(s): Mother had heart problems. She at age 72 yrs. She had osteoporosis. Brother(s) Family Medical History: No Reported History Sister(s) Family Medical History: Diabetes Mellitus Daughter(s) Family Medical History: No Reported History Son(s) Family Medical History: No Reported History Medications and Allergies Home Medications Medication Instructions Recorded Confirmed Type Fluticasone/Salmeterol [Advair 1 puff INHALATION RT-BID 02/10/16 06/26/20 History 250-50 Diskus] Simvastatin [Zocor] 20 mg PO HS 02/10/16 06/26/20 History Aspirin [Adult Low Dose Aspirin EC] 81 mg PO DAILY 02/03/19 06/26/20 History Dabigatran [Pradaxa] 150 mg PO BID 11/17/19 06/26/20 History Nystatin 100,000Unit/gm Cream 1 applic TOPICAL BID 11/17/19 06/26/20 History [Mycostatin Cream] traZODone HCL [Desyrel] 50 mg PO HS 11/17/19 06/26/20 History Pregabalin [Lyrica] 100 mg PO BID #6 cap 11/30/19 06/26/20 Rx Acetaminophen Tab [Tylenol] 650 mg PO Q8H 06/26/20 06/26/20 History Albuterol Sulfate [Ventolin HFA] 1 puff INHALATION RT-Q4H PRN 06/26/20 06/26/20 History Allopurinol [Zyloprim] 300 mg PO DAILY 06/26/20 06/26/20 History Cyanocobalamin [Vitamin B-12] 500 mcg PO HS 06/26/20 06/26/20 History Ferrous Sulfate [Feosol] 325 mg PO DAILY 06/26/20 06/26/20 History Folic Acid 0.4 mg PO HS 06/26/20 06/26/20 History Furosemide [Lasix] 40 mg PO BID@0900,1400 06/26/20 06/26/20 History Ipratropium-Albuterol Nebulize 3 ml INHALATION RT-TID 06/26/20 06/26/20 History [Duoneb 0.5 mg-3 mg/3 ml Soln] Lactulose [Cephulac] 20 gm PO BID 06/26/20 06/26/20 History Loratadine [Claritin] 10 mg PO DAILY 06/26/20 06/26/20 History Magnesium Hydroxide [Milk of 2,400 mg PO DAILY PRN 06/26/20 06/26/20 History Magnesia] Metoprolol Tartrate [Lopressor] 50 mg PO TID 06/26/20 06/26/20 History Omeprazole [PriLOSEC] 20 mg PO DAILY 06/26/20 06/26/20 History traMADol HCL [Ultram] 50 mg PO Q6HR PRN 06/26/20 06/26/20 History Allergies Allergy/AdvReac Type Severity Reaction Status Date / Time No Known Allergies Allergy Verified 06/26/20 10:39 Physical Exam Vitals: Vital Signs Temp Pulse Resp BP Pulse Ox 06/27/20 13:00 16 94 L 06/27/20 12:00 97 F L 102 H 17 115/37 96 06/27/20 11:49 84 06/27/20 11:38 89 06/27/20 11:00 86 10 L 96 06/27/20 10:00 100 15 93 L 06/27/20 09:00 120 H 13 93 L 06/27/20 08:00 97 F L 128 H 18 118/62 93 L 06/27/20 07:56 118 H 06/27/20 07:40 111 H 06/27/20 07:00 118 H 18 93 L 06/27/20 06:00 115 H 16 93 L 06/27/20 05:00 122 H 15 94 L 06/27/20 04:00 98.1 F 98 14 109/83 93 L 06/27/20 03:00 124 H 21 92 L 06/27/20 02:00 111 H 18 91 L 06/27/20 01:00 105 H 15 93 L 06/27/20 00:00 98.3 F 105 H 16 94 L 06/26/20 23:17 120 H 14 92 L 06/26/20 23:00 112 H 14 96 06/26/20 22:00 123 H 17 96 06/26/20 21:00 100 21 93 L 06/26/20 20:00 97.9 F 121 H 14 99/67 95 06/26/20 19:35 125 H 06/26/20 19:23 126 H 06/26/20 19:00 98 14 95 06/26/20 18:00 103 H 12 96 06/26/20 17:00 108 H 15 94 L 06/26/20 16:00 97.6 F 93 12 126/92 97 06/26/20 15:34 109 H 06/26/20 15:23 98 06/26/20 15:00 97.9 F 101 H 11 L 139/93 97 06/26/20 14:52 118 H 18 Intake and Output 06/26/20 06/27/20 06/27/20 22:59 06:59 14:59 Intake Total 143 386.75 518 Output Total 1655 1865 650 Balance -1512 -1478.25 -132 Intake: IV 143 64 38 Doxycycline 100 mg In 100 Sodium Chloride 0.9% 100 ml @ 100 mls/hr IVPB Q12HR [facility] Rx#:[id number] Furosemide 100 mg In 40 40 35 Sodium Chloride 0.9% 90 ml @ 10 MG/HR 10 mls/hr IV .Q10H [facility] Rx#: [id number] Pressure Bags 0.9 3 24 3 Intake, IV Titration 72.75 Amount Furosemide 100 mg In 72.75 Sodium Chloride 0.9% 90 ml @ 10 MG/HR 10 mls/hr IV .Q10H [facility] Rx#: [id number] Oral 250 480 Output: Urine 1655 1865 650 Other: Weight 204.95 kg 204.95 kg ABP, PAP, CO, CI - Last 8 Hours Arterial Blood Pressure 133/67 Arterial Blood Pressure 124/62 Arterial Blood Pressure 110/52 Arterial Blood Pressure 112/56 Arterial Blood Pressure 131/59 Arterial Blood Pressure 122/53 Arterial Blood Pressure 137/59 Results - Lab Results Most recent lab results ABG pH 7.38 (7.35-7.45) 06/27/20 05:12 ABG pCO2 64 mmHg (35-45) H 06/27/20 05:12 ABG pO2 76 mmHg (83-108) L 06/27/20 05:12 ABG HCO3 38 mmol/L (21-25) H 06/27/20 05:12 ABG O2 Saturation 95.4 % (94-97) 06/27/20 05:12 Calcium 9.5 mg/dL (8.4-10.2) 06/27/20 05:05 Magnesium 2.7 mg/dL (1.6-2.3) H 06/26/20 10:05 06/27/20 05:05 06/27/20 05:05 Assessment and Plan Plan: Assessment: 1. Acute kidney injury mostly prerenal secondary to cardiorenal syndrome. Creatinine was 1.8 on admission and is 1.54 today. 2. Chronic kidney disease stage III with baseline creatinine near 1.5. Etiologiy is nephrosclerosis. 3. Volume overload. 4. Acute on chronic diastolic CHF with moderate tricuspid regurgitation and pulmonary hypertension. Plan: Increase Lasix drip at 10 mL an hour. Low-salt diet and 1500 mL fluid restriction. Check urinalysis. Continue to monitor renal function and urine output. Thank you for the consultation. I will continue to follow the patient with you during his hospital stay.
[2020-06-27 16:25] LABS: Glucose,Whole Blood 206 mg/dL (75-99)
[2020-06-27] MEDS: INSULIN ASPART (NovoLOG) 100 UNIT/ML VIAL SQ SCH ×2 (16:43→20:38)
[2020-06-27] MEDS ORDERED: ALPRAZolam 0.5 MG TAB PO STA (19:06)
[2020-06-27 19:21] LABS: ABG Base Excess 17.3 mmol/L; ABG Oxygen Saturation 97.2 % (94-97); ABG PCO2 65 mmHg (35-45); ABG PH 7.42 (7.35-7.45); ABG PO2 87 mmHg (83-108); ABG TCO2 44 mmol/L (19-24); Allen Test Performed? Yes
[2020-06-27 19:27] LABS: ABG HCO3 42 mmol/L (21-25)
[2020-06-27 20:30] LABS: Glucose,Whole Blood 188 mg/dL (75-99)
[2020-06-27] MEDS: FOLIC ACID 1 MG TAB PO SCH (20:39)
[2020-06-27] MEDS: CYANOCOBALAMIN 500 MCG TAB PO SCH (20:39)
[2020-06-27] MEDS: ATORVASTATIN 10 MG TAB PO SCH (20:39)
[2020-06-28] MEDS: ACETAMINOPHEN TAB 325 MG TAB PO SCH ×3 (00:24→17:02)
[2020-06-28] MEDS: FUROSEMIDE 100 MG in SODIUM CHLORIDE 0.9% 90 ML IV SCH ×2 (04:11→14:39)
[2020-06-28 05:02] LABS: Anisocytosis Slight; HCT 37.7 % (39.0-53.0); HGB 11.1 gm/dL (13.0-17.5); Hypochromasia Marked; MCH 29.5 pg (25.0-35.0); MCHC 29.4 g/dL (31.0-37.0); MCV 100.4 fL (80.0-100.0); Macrocytosis Slight; Mean Platelet Volume 8.9; Platelet Count 187 k/uL (150-450); RBC 3.76 m/uL (4.30-5.90); WBC 8.4 k/uL (3.8-10.6)
[2020-06-28 05:16] LABS: Calcium 9.6 mg/dL (8.4-10.2); Potassium 4.3 mmol/L (3.5-5.1)
[2020-06-28 05:18] LABS: ABG Base Excess 17.7 mmol/L; ABG Oxygen Saturation 97.3 % (94-97); ABG PH 7.35 (7.35-7.45); ABG PO2 98 mmHg (83-108); ABG TCO2 46 mmol/L (19-24); Allen Test Performed? Yes
[2020-06-28 05:21] LABS: ABG HCO3 43 mmol/L (21-25); ABG PCO2 80 mmHg (35-45)
[2020-06-28] MEDS: IPRATROPIUM-ALBUTEROL 3 ML NEB INHALATION SCH ×4 (06:53→19:31)
[2020-06-28 06:57] LABS: Glucose,Whole Blood 171 mg/dL (75-99)
[2020-06-28] MEDS: INSULIN ASPART (NovoLOG) 100 UNIT/ML VIAL SQ SCH ×4 (07:02→21:41)
[2020-06-28] MEDS: PANTOPRAZOLE 40 MG TABLET PO SCH (07:02)
[2020-06-28] MEDS: DOXYCYCLINE 100 MG in SODIUM CHLORIDE 0.9% 100 ML IVPB SCH ×2 (09:12→21:41)
[2020-06-28] MEDS: PREGABALIN 100 MG CAP PO SCH ×2 (09:13→21:41)
[2020-06-28] MEDS: FAMOTIDINE 20 MG TAB PO SCH ×2 (09:13→21:41)
[2020-06-28] MEDS: METOPROLOL TARTRATE 50 MG TAB PO SCH ×3 (09:13→21:40)
[2020-06-28] MEDS: allopurinoL 300 MG TAB PO SCH (09:13)
[2020-06-28] MEDS: ASPIRIN 81 MG PO SCH (09:13)
[2020-06-28] MEDS: DABIGATRAN 150 MG CAP PO SCH ×2 (09:13→21:46)
[2020-06-28] MEDS: NYSTATIN 100,000UNIT/GM CREAM 30 GM TUBE TOPICAL SCH ×2 (09:16→21:41)
--- NOTE | 2020-06-28 10:19 | P.PN ---
Subjective 59-year-old male came in with complaints of shortness of breath excessively drowsy patient is able to provide me history with easily goes intosleep. Because of which I am asked for from her ABGs and ABGs were ordered and the ABGs are showing mild the respiratory acidosis with a pCO2 of around 90. Patient is morbidly obese does have a obesity hypoventilation syndrome and sleep apnea. Patient does have history of COPD as well as chronic diastolic dysfunction. Patient's chest x-ray did not show any pneumonic infiltrate patient was comparing of cough with greenish sputum production. Patient does have extensive bilateral pedal edema probably mostly due to chronic venous stasis rather than heart failure itself I'm unable to assess JVD, BNP is around 4170. Patient uses anywhere between 4-5 L of oxygen at home. 06/28/2020 Patient respiratory acidosis and hypercapnia improved with BiPAP patient was switched to 6 L still using BiPAP and as-needed basis when he sleeps. Patient apparently will require noninvasive ventilationeven after discharge.patient is much more awake much less sleepy today. 06/29/2020 patient remains on the IV Lasix drip mild worsening of serum creatinine Lasix drip is being changed to 5 mg lower as is having significant urine output still hasn't been pedal edema does have some contraction alkalosis.patient 4 L apart from surgery 92% this is his baseline patient uses BiPAP when he sleeps. Constitutional: Denied any fatigue denied any fever. Cardio vascular: denied any chest pain, palpitations Gastrointestinal denied any nausea vomiting Pulmonary: Denied any shortness of breath cough Neurologic denied any new focal deficits All inpatient medications were reviewed and appropriate changes in these med ications as dictated in the interval history and assessment and plan. Objective - Vital Signs Vital signs: Vital Signs Temp 98.2 F 06/28/20 08:00 Pulse 107 H 06/28/20 10:00 Resp 16 06/28/20 10:00 BP 90/80 06/28/20 10:00 Pulse Ox 92 L 06/28/20 10:00 Intake & Output 06/27/20 06/28/20 06/28/20 18:59 06:59 18:59 Intake Total 1348 657.833 154 Output Total 1200 2220 690 Balance 148 -1562.167 -536 Weight 204.95 kg 200.909 kg Intake: IV 88 153 154 .9 kvo 15 Doxycycline 100 mg In 100 Sodium Chloride 0.9% 100 ml @ 100 mls/hr IVPB Q12HR [facility] Rx#:[id number] Furosemide 100 mg In 85 120 30 Sodium Chloride 0.9% 90 ml @ 10 MG/HR 10 mls/hr IV .Q10H [facility] Rx#: [id number] Pressure Bags 0.9 3 33 9 Intake, IV Titration 154.833 Amount Furosemide 100 mg In 154.833 Sodium Chloride 0.9% 90 ml @ 10 MG/HR 10 mls/hr IV .Q10H [facility] Rx#: [id number] Oral 1260 350 Output: Urine 1200 2220 690 Other: Voiding Method Indwelling Catheter Indwelling Catheter ABP, PAP, CO, CI - Last Documented Arterial Blood Pressure 136/80 - Exam PHYSICAL EXAMINATION: GENERAL: patient is alert and oriented 3 morbidly obese HEENT: Pupils are round and equally reacting to light. EOMI. No scleral icterus. No conjunctival pallor. Normocephalic, atraumatic. No pharyngeal erythema. No thyromegaly. CARDIOVASCULAR: S1 and S2 present. No murmurs, rubs, or gallops. PULMONARY: decreased bilateral wheezing fairly good air entry bilateral lung jeffrey ABDOMEN: Soft, nontender, nondistended, normoactive bowel sounds. No palpable organomegaly. MUSCULOSKELETAL: No joint swelling or deformity. EXTREMITIES: No cyanosis, clubbing, or 2+ pitting pedal edemadiffusion improvement competitors to NEUROLOGICAL: Gross neurological examination did not reveal any focal deficits. SKIN: No rashes. - Labs CBC & Chem 7: 06/28/20 04:50 06/28/20 04:50 Labs: Abnormal Lab Results - Last 24 Hours (Table) 06/27/20 06/27/20 06/27/20 Range/Units 11:32 16:23 19:18 RBC (4.30-5.90) m/uL Hgb (13.0-17.5) gm/dL Hct (39.0-53.0) % MCV (80.0-100.0) fL MCHC (31.0-37.0) g/dL RDW (11.5-15.5) % ABG pCO2 65 H (35-45) mmHg ABG HCO3 42 H* (21-25) mmol/L ABG Total CO2 44 H (19-24) mmol/L ABG O2 Saturation 97.2 H (94-97) % Chloride (98-107) mmol/L Carbon Dioxide (22-30) mmol/L BUN (9-20) mg/dL Creatinine (0.66-1.25) mg/dL Glucose (74-99) mg/dL POC Glucose (mg/dL) 176 H 206 H (75-99) mg/dL 06/27/20 06/28/20 06/28/20 Range/Units 20:30 04:50 04:50 RBC 3.76 L (4.30-5.90) m/uL Hgb 11.1 L (13.0-17.5) gm/dL Hct 37.7 L (39.0-53.0) % MCV 100.4 H (80.0-100.0) fL MCHC 29.4 L (31.0-37.0) g/dL RDW 17.0 H (11.5-15.5) % ABG pCO2 (35-45) mmHg ABG HCO3 (21-25) mmol/L ABG Total CO2 (19-24) mmol/L ABG O2 Saturation (94-97) % Chloride 97 L (98-107) mmol/L Carbon Dioxide 41 H* (22-30) mmol/L BUN 60 H (9-20) mg/dL Creatinine 1.67 H (0.66-1.25) mg/dL Glucose 165 H (74-99) mg/dL POC Glucose (mg/dL) 188 H (75-99) mg/dL 06/28/20 06/28/20 Range/Units 05:14 06:56 RBC (4.30-5.90) m/uL Hgb (13.0-17.5) gm/dL Hct (39.0-53.0) % MCV (80.0-100.0) fL MCHC (31.0-37.0) g/dL RDW (11.5-15.5) % ABG pCO2 80 H* (35-45) mmHg ABG HCO3 43 H* (21-25) mmol/L ABG Total CO2 46 H (19-24) mmol/L ABG O2 Saturation 97.3 H (94-97) % Chloride (98-107) mmol/L Carbon Dioxide (22-30) mmol/L BUN (9-20) mg/dL Creatinine (0.66-1.25) mg/dL Glucose (74-99) mg/dL POC Glucose (mg/dL) 171 H (75-99) mg/dL Microbiology - Last 24 Hours (Table) 06/26/20 10:05 Blood Culture - Preliminary Blood No Growth after 24 hours Assessment and Plan Plan: -acute on chronic hypercapnic respiratory failure: Secondary to obesity hypoventilation syndrome with bronchitis that may be some COPD exacerbation patient will be continued on doxycycline and the steroids now for now -congestive heart failure chronic diastolic dysfunction with possible mild acute exacerbationpatient was started on Lasix drip and patient has improvement in kidney function after Lasix -contraction alkalosis -moderate pulmonary hypertension -Morbid obesity -COPD with acute exacerbation -bilateral chronic venous stasis -Chronic kidney disease stage III baseline creatinine of around 1.8 , patient had acute renal failure secondary to prerenal azotemia from heart failure improved with Lasix. -Respiratory acidosis secondary to assessment #1improved now -chronic A. fib on anticoagulation which will be resumed -Hyperlipidemia -Hypertension
--- NOTE | 2020-06-28 10:57 | P.PN ---
Subjective Patient is seen in follow-up for acute kidney injury on chronic kidney disease. Patient has chronic kidney disease stage III with baseline creatinine near 1.5. Renal function fairly stable. Currently maintained on Lasix drip. Edema improving. No vomiting or diarrhea. Vital signs are stable. General: The patient appeared well nourished and normally developed. HEENT: Head exam is unremarkable. Neck is without jugular venous distension. LUNGS: Breath sounds decreased. HEART: Rate and Rhythm are regular. ABDOMEN: Soft, nontender. EXTREMITITES: 2+ edema. Chronic changes noted. Objective - Vital Signs Vital signs: Vital Signs Temp 98.2 F 06/28/20 08:00 Pulse 107 H 06/28/20 10:00 Resp 16 06/28/20 10:00 BP 90/80 06/28/20 10:00 Pulse Ox 92 L 06/28/20 10:00 Intake & Output 06/27/20 06/28/20 06/28/20 18:59 06:59 18:59 Intake Total 1348 657.833 154 Output Total 1200 2220 690 Balance 148 -1562.167 -536 Weight 204.95 kg 200.909 kg Intake: IV 88 153 154 .9 kvo 15 Doxycycline 100 mg In 100 Sodium Chloride 0.9% 100 ml @ 100 mls/hr IVPB Q12HR [facility] Rx#:[id number] Furosemide 100 mg In 85 120 30 Sodium Chloride 0.9% 90 ml @ 10 MG/HR 10 mls/hr IV .Q10H [facility] Rx#: [id number] Pressure Bags 0.9 3 33 9 Intake, IV Titration 154.833 Amount Furosemide 100 mg In 154.833 Sodium Chloride 0.9% 90 ml @ 10 MG/HR 10 mls/hr IV .Q10H [facility] Rx#: [id number] Oral 1260 350 Output: Urine 1200 2220 690 Other: Voiding Method Indwelling Catheter Indwelling Catheter ABP, PAP, CO, CI - Last Documented Arterial Blood Pressure 136/80 - Labs CBC & Chem 7: 06/28/20 04:50 06/28/20 04:50 Labs: Abnormal Lab Results - Last 24 Hours (Table) 06/27/20 06/27/20 06/27/20 Range/Units 11:32 16:23 19:18 RBC (4.30-5.90) m/uL Hgb (13.0-17.5) gm/dL Hct (39.0-53.0) % MCV (80.0-100.0) fL MCHC (31.0-37.0) g/dL RDW (11.5-15.5) % ABG pCO2 65 H (35-45) mmHg ABG HCO3 42 H* (21-25) mmol/L ABG Total CO2 44 H (19-24) mmol/L ABG O2 Saturation 97.2 H (94-97) % Chloride (98-107) mmol/L Carbon Dioxide (22-30) mmol/L BUN (9-20) mg/dL Creatinine (0.66-1.25) mg/dL Glucose (74-99) mg/dL POC Glucose (mg/dL) 176 H 206 H (75-99) mg/dL 06/27/20 06/28/20 06/28/20 Range/Units 20:30 04:50 04:50 RBC 3.76 L (4.30-5.90) m/uL Hgb 11.1 L (13.0-17.5) gm/dL Hct 37.7 L (39.0-53.0) % MCV 100.4 H (80.0-100.0) fL MCHC 29.4 L (31.0-37.0) g/dL RDW 17.0 H (11.5-15.5) % ABG pCO2 (35-45) mmHg ABG HCO3 (21-25) mmol/L ABG Total CO2 (19-24) mmol/L ABG O2 Saturation (94-97) % Chloride 97 L (98-107) mmol/L Carbon Dioxide 41 H* (22-30) mmol/L BUN 60 H (9-20) mg/dL Creatinine 1.67 H (0.66-1.25) mg/dL Glucose 165 H (74-99) mg/dL POC Glucose (mg/dL) 188 H (75-99) mg/dL 06/28/20 06/28/20 Range/Units 05:14 06:56 RBC (4.30-5.90) m/uL Hgb (13.0-17.5) gm/dL Hct (39.0-53.0) % MCV (80.0-100.0) fL MCHC (31.0-37.0) g/dL RDW (11.5-15.5) % ABG pCO2 80 H* (35-45) mmHg ABG HCO3 43 H* (21-25) mmol/L ABG Total CO2 46 H (19-24) mmol/L ABG O2 Saturation 97.3 H (94-97) % Chloride (98-107) mmol/L Carbon Dioxide (22-30) mmol/L BUN (9-20) mg/dL Creatinine (0.66-1.25) mg/dL Glucose (74-99) mg/dL POC Glucose (mg/dL) 171 H (75-99) mg/dL Microbiology - Last 24 Hours (Table) 06/26/20 10:05 Blood Culture - Preliminary Blood No Growth after 24 hours Assessment and Plan Plan: Assessment: 1. Acute kidney injury mostly prerenal secondary to cardiorenal syndrome. Creatinine was 1.8 on admission and is 1.67 today. 2. Chronic kidney disease stage III with baseline creatinine near 1.5. Etiologiy is nephrosclerosis. 3. Volume overload. 4. Acute on chronic diastolic CHF with moderate tricuspid regurgitation and pulmonary hypertension. 5. Acute on chronic hypercapnic respiratory failure. Additional mild metabolic alkalosis secondary to diuresis. Plan: Decrease Lasix drip to 5 mL an hour. Low-salt diet and 1500 mL fluid restriction. Follow-up urinalysis. Continue to monitor renal function and urine output. Monitor bicarb. If alkalosis worsens, will need Diamox.
[2020-06-28] MEDS: FERROUS SULFATE 325 MG TAB PO SCH (11:12)
[2020-06-28 11:41] LABS: Appearance,Urine Clear (Clear); Bacteria,Urine Rare /hpf; Bilirubin,Urine Negative (Negative); Blood,Urine Negative (Negative); Color,Urine Yellow; Glucose,Urine (UA) Negative (Negative); Hyaline Casts,Urine 30 /lpf (0-2); Ketones,Urine Negative (Negative); Leukocyte Esterase,Urine Trace (Negative); Mucus,Urine Rare /hpf; Nitrite,Urine Negative (Negative); Protein,Urine Negative (Negative); RBC,Urine 3 /hpf (0-5); Specific Gravity,Urine 1.009 (1.001-1.035); Squamous Epithelial Cell,Urine 1 /hpf (0-4); Urobilinogen,Urine <2.0 mg/dL (<2.0); WBC,Urine 2 /hpf (0-5)
--- NOTE | 2020-06-28 11:41 | P.PN ---
Subjective Progress Note Date: 06/28/20 This is a 59-year-old male patient was morbidly obese and carries a BMI 56.7. He also has chronic hypoxic and hypercapnic respiratory failure, obstructive sleep apnea, obesity hypoventilation syndrome possible COPD. Other comorbidities include previous bariatric surgery, diabetes mellitus, hypertensio n and hyperlipidemia and addition to chronic congestion heart failure, chronic atrial fibrillation and chronic kidney disease.. He does hospitalization was in August 2019. At that time the patient came in with massive fluid overload. His blood gases showed an acute on top of chronic hypercapnic respiratory failure and administered acidosis. He was offered BiPAP therapy. He gradually improved and was discharged home on 2 L of oxygen by nasal cannula noninvasive positive pressure ventilation in addition to his noninvasive positive pressure ventilator. The patient was brought into the emergency department because of worsening shortness of breath and diminished level of consciousness. He was very difficult to keep him arouse and he was falling asleep repetitively. In the emergency department, blood gases was done and the patient was found to have an acute on top of chronic respiratory acidosis with a pH of 7.27 and a pCO2 of 88 and pO2 of 76. This was on FiO2 of 36%. Currently the patient in the BiPAP at a pressure of 12/5. He remains somewhat lethargic yet more arousable com pared to earlier. His creatinine is 1.5 with a mean of 59. The hemoglobin is at 11.4. The chest x-ray shows evidence of cardiomegaly along with scattered senescent parenchymal changes and some elevation of the right hemidiaphragm. There is also increased pulmonary vessel markings. The patient's lactic acid level is at 0.7. ProBNP level is 4170 and his serum bicarb is at 39. He is afebrile. His cardiac rhythm is atrial fibrillation with a rate of 106 without any acute ischemic changes. There is an incomplete left bundle branch block pattern. On 06/27/2020, the patient is much improved compared to yesterday. He got transferred to the intensive care unit as the patient was quite obtunded and lethargic and he was in hypercapnic the story failure and CO2 narcosis. Based on this, the patient was started on Lasix drip at 5 mg an hour. He has made excellent urine output overnight and the patient is a negative fluid balance of at least 2 L over the past 24 hours. He was also supported with a BiPAP and he was receiving BiPAP at a pressure of 12/5 cm of water and FiO2 of 40%. A repeat blood gases from today showed a pH of 7.38 with a pCO2 of 64 and pO2 of 76. Awake and alert and following commands and answering questions. The serum bicarb currently is at 36. BUN is a 56 a creatinine of 1.5. Lasix drip is at 5 mg an hour. No other significant issues. Following commands and answering questions. A 2019, the patient is being seen for a follow-up. The patient is doing well and has no specific complaints. No significant alteration in his mental status. The patient is currently on 4 L of oxygen by nasal cannula. Blood gases from this morning while on nasal cannula showed a pH of 7.35 with a pCO2 of 80 and pO2 of 98. The patient is a negative fluid balance while being on Lasix at 10 mg an hour. Menstrual balance is -1.4 L. Overnight, he was kept on BiPAP at a pressure of 12/5 with an FiO2 of 40%. He remains in atrial fibrillation at the rate of 108. No fever. No chills. No significant worsening in her renal function and the creatinine is stable at 1.6 with a BUN of 60. Serum bicarb is 41. Lower extremity edema is also improving. The wounds in lower extremities have been appropriately dressed. Objective - Vital Signs Vital signs: Vital Signs Temp 98.2 F 06/28/20 08:00 Pulse 89 06/28/20 11:00 Resp 15 06/28/20 11:00 BP 90/80 06/28/20 10:00 Pulse Ox 88 L 06/28/20 11:00 Intake & Output 06/27/20 06/28/20 06/28/20 18:59 06:59 18:59 Intake Total 1348 657.833 190 Output Total 1200 2220 990 Balance 148 -1562.167 -800 Weight 204.95 kg 200.909 kg Intake: IV 88 153 190 .9 kvo 35 Doxycycline 100 mg In 100 Sodium Chloride 0.9% 100 ml @ 100 mls/hr IVPB Q12HR [facility] Rx#:[id number] Furosemide 100 mg In 85 120 40 Sodium Chloride 0.9% 90 ml @ 5 MG/HR 5 mls/hr IV .Q20H [facility] Rx#:[id number] Pressure Bags 0.9 3 33 15 Intake, IV Titration 154.833 Amount Furosemide 100 mg In 154.833 Sodium Chloride 0.9% 90 ml @ 5 MG/HR 5 mls/hr IV .Q20H [facility] Rx#:[id number] Oral 1260 350 Output: Urine 1200 2220 990 Other: Voiding Method Indwelling Catheter Indwelling Catheter ABP, PAP, CO, CI - Last Documented Arterial Blood Pressure 128/73 - Exam Patient is morbidly obese with a BMI of 56.7. Awake and alert and following commands. He is currently on 4 L of oxygen by nasal cannula. Head exam was generally normal. There was no scleral icterus or corneal arcus. Mucous membranes were moist. Neck was supple and without jugular venous distension, thyromegaly, or carotid bruits. Carotids were easily palpable bilaterally. There was no adenopathy. The patient has a Mallampati class IV and there is no goiter or neck masses. Lungs sounds are diminished in lung bases bilaterally. Crackles or wheezes could not be appreciated yet for the most part the breast on that equal and symmetrical. Cardiac exam revealed the PMI to be normally situated and sized. The rhythm was irregular and was consistent with atrial fibrillation. and no extrasystoles were noted during several minutes of auscultation. The first and second heart sounds were normal and physiologic splitting of the second heart sound was noted. There were no murmurs, rubs Abdomen is morbidly obese and orders cannot be accurately palpated. There is abdominal wall edema. There is no direct tenderness. No rebound tenderness or guarding at this point in time. Extremities revealed +2-3 pitting edema in all 4 extremities more so in the lower extremity is bilaterally especially in the thighs and just below the knee. There is also significant erythema and skin ulceration involving the right lower extremity above the ankle extending anteriorly over the right lower extremity and a stage I to 2 open wound anteriorly without evidence of any active drainage or purulent material. No rashes. Pulses are diminished in all 4 extremities. Neurologically, alert and oriented 3 without any focal neurological deficit. - Labs CBC & Chem 7: 06/28/20 04:50 06/28/20 04:50 Labs: Abnormal Lab Results - Last 24 Hours (Table) 06/27/20 06/27/20 06/27/20 Range/Units 16:23 19:18 20:30 RBC (4.30-5.90) m/uL Hgb (13.0-17.5) gm/dL Hct (39.0-53.0) % MCV (80.0-100.0) fL MCHC (31.0-37.0) g/dL RDW (11.5-15.5) % ABG pCO2 65 H (35-45) mmHg ABG HCO3 42 H* (21-25) mmol/L ABG Total CO2 44 H (19-24) mmol/L ABG O2 Saturation 97.2 H (94-97) % Chloride (98-107) mmol/L Carbon Dioxide (22-30) mmol/L BUN (9-20) mg/dL Creatinine (0.66-1.25) mg/dL Glucose (74-99) mg/dL POC Glucose (mg/dL) 206 H 188 H (75-99) mg/dL 06/28/20 06/28/20 06/28/20 Range/Units 04:50 04:50 05:14 RBC 3.76 L (4.30-5.90) m/uL Hgb 11.1 L (13.0-17.5) gm/dL Hct 37.7 L (39.0-53.0) % MCV 100.4 H (80.0-100.0) fL MCHC 29.4 L (31.0-37.0) g/dL RDW 17.0 H (11.5-15.5) % ABG pCO2 80 H* (35-45) mmHg ABG HCO3 43 H* (21-25) mmol/L ABG Total CO2 46 H (19-24) mmol/L ABG O2 Saturation 97.3 H (94-97) % Chloride 97 L (98-107) mmol/L Carbon Dioxide 41 H* (22-30) mmol/L BUN 60 H (9-20) mg/dL Creatinine 1.67 H (0.66-1.25) mg/dL Glucose 165 H (74-99) mg/dL POC Glucose (mg/dL) (75-99) mg/dL 06/28/20 Range/Units 06:56 RBC (4.30-5.90) m/uL Hgb (13.0-17.5) gm/dL Hct (39.0-53.0) % MCV (80.0-100.0) fL MCHC (31.0-37.0) g/dL RDW (11.5-15.5) % ABG pCO2 (35-45) mmHg ABG HCO3 (21-25) mmol/L ABG Total CO2 (19-24) mmol/L ABG O2 Saturation (94-97) % Chloride (98-107) mmol/L Carbon Dioxide (22-30) mmol/L BUN (9-20) mg/dL Creatinine (0.66-1.25) mg/dL Glucose (74-99) mg/dL POC Glucose (mg/dL) 171 H (75-99) mg/dL Microbiology - Last 24 Hours (Table) 06/26/20 10:05 Blood Culture - Preliminary Blood No Growth after 24 hours Assessment and Plan Plan: 1 altered mental status secondary to acute on chronic hypercapnic respiratory failure and CO2 narcosis which has recovered and the patient's acid base status is improved considerably along with his mental status. 2 chronic hypoxic respiratory failure 3 chronic hypercapnic respiratory failure 4 obstructive sleep apnea syndrome/obesity hypoventilation syndrome. The patient is in a intermediate on a BiPAP at a pressure of 10/6 cm of water. 3 chronic cor pulmonale pulmonary pressure on the most recent echocardiogram is 48 mm of mercury, right-sided cardiac structures are dilated. The patient also has a component of LV dysfunction with an ejection fraction of 50% 4 morbid obesity previous bariatric surgery , gastric sleeve ,with initial successful weight loss however the patient subsequently started gaining weight 5 chronic obstructive lung disease 6 atrial fibrillation rate controlled, and the patient is on long-term anticoagulation with Pradaxa 7 history of bariatric surgical procedure , Previous gastric sleeve (unsuccessful) 8 hypertensive disorder 9 hyperlipidemia 10 chronic kidney disease, stage III 11 Chronic edema of lower extremity 12 chronic venous ulceration of the right lower extremity stage I to 2 over the anterior aspect of the right lower extremity 13 diabetes mellitus Plan Continue Lasix drip for another 24 hours, and the patient is running a Lasix drip at the rate of 10 mg an hour. Monitor electrolytes. Monitor serum bicarbonate was from a significant alkalosis. BiPAP overnight and sent pressure setting Repeat blood gases again in the morning monitor BUN and creatinine and electrolytes Monitor mental status, and the patient is essentially improved for now Oxygen at 4 L per minute nasal cannula Off her regular diet Keep the patient ICU for 24 hours. Continue supportive care
[2020-06-28 11:47] LABS: Glucose,Whole Blood 128 mg/dL (75-99)
[2020-06-28 17:07] LABS: Glucose,Whole Blood 140 mg/dL (75-99)
[2020-06-28 21:33] LABS: Glucose,Whole Blood 144 mg/dL (75-99)
[2020-06-28] MEDS: FOLIC ACID 1 MG TAB PO SCH (21:40)
[2020-06-28] MEDS: CYANOCOBALAMIN 500 MCG TAB PO SCH (21:41)
[2020-06-28] MEDS: ATORVASTATIN 10 MG TAB PO SCH (21:41)
[2020-06-29] MEDS: ACETAMINOPHEN TAB 325 MG TAB PO SCH ×3 (00:20→16:53)
[2020-06-29 04:35] LABS: ABG Base Excess 18.5 mmol/L; ABG Oxygen Saturation 94.2 % (94-97); ABG PH 7.28 (7.35-7.45); ABG PO2 77 mmHg (83-108); ABG TCO2 48 mmol/L (19-24)
[2020-06-29 04:41] LABS: Allen Test Performed? no
[2020-06-29 04:43] LABS: Anisocytosis Slight; HGB 11.7 gm/dL (13.0-17.5); Hypochromasia Marked; MCH 30.3 pg (25.0-35.0); MCHC 30.1 g/dL (31.0-37.0); MCV 100.7 fL (80.0-100.0); Macrocytosis Slight; Mean Platelet Volume 9.4; Platelet Count 149 k/uL (150-450); RBC 3.87 m/uL (4.30-5.90); RDW 16.8 % (11.5-15.5); WBC 6.7 k/uL (3.8-10.6)
[2020-06-29 05:43] LABS: Albumin 2.9 g/dL (3.5-5.0); Potassium 3.9 mmol/L (3.5-5.1); Total Bilirubin 0.7 mg/dL (0.2-1.3); Total Protein 5.5 g/dL (6.3-8.2)
[2020-06-29] MEDS ORDERED: Potassium Replacement Protocol 1 EACH MISC MISCELLANE PRN (06:40)
[2020-06-29 06:57] LABS: Glucose,Whole Blood 120 mg/dL (75-99)
[2020-06-29] MEDS: INSULIN ASPART (NovoLOG) 100 UNIT/ML VIAL SQ SCH ×4 (06:58→20:46)
[2020-06-29] MEDS: FUROSEMIDE 100 MG in SODIUM CHLORIDE 0.9% 90 ML IV SCH (07:00)
[2020-06-29] MEDS: PANTOPRAZOLE 40 MG TABLET PO SCH (07:00)
[2020-06-29] MEDS: IPRATROPIUM-ALBUTEROL 3 ML NEB INHALATION SCH ×4 (07:06→19:34)
--- NOTE | 2020-06-29 07:52 | XR ---
EXAMINATION TYPE: XR chest 1V portable DATE OF EXAM: 06/29/2020 Comparison: 06/26/2020 Clinical History: 59-year-old male follow-up exam Findings: Heart mild to moderately enlarged. There is hazy obscuration of the right hemidiaphragm suggesting un derlying pleural effusion. Mild patchy left basilar opacity. Impression: Continued cardiomegaly. There is hazy obscuration now of the right hemidiaphragm suggesting small eff usion with adjacent atelectasis and/or consolidation. Mild patchy opacity at the left base as well.
[2020-06-29] MEDS ORDERED: POTASSIUM CHLORIDE ER 20 MEQ TAB.ER PO SCH (08:00)
[2020-06-29 08:08] LABS: ABG Base Excess 19.8 mmol/L; ABG Oxygen Saturation 93.6 % (94-97); ABG PH 7.31 (7.35-7.45); ABG PO2 72 mmHg (83-108); ABG TCO2 49 mmol/L (19-24)
[2020-06-29 08:11] LABS: ABG HCO3 46 mmol/L (21-25); ABG PCO2 91 mmHg (35-45)
[2020-06-29] MEDS: ASPIRIN 81 MG PO SCH (08:32)
[2020-06-29] MEDS: allopurinoL 300 MG TAB PO SCH (08:32)
[2020-06-29] MEDS: FAMOTIDINE 20 MG TAB PO SCH ×2 (08:32→20:04)
[2020-06-29] MEDS: METOPROLOL TARTRATE 50 MG TAB PO SCH ×3 (08:33→20:46)
[2020-06-29] MEDS: PREGABALIN 100 MG CAP PO SCH ×2 (08:33→20:04)
[2020-06-29] MEDS: DABIGATRAN 150 MG CAP PO SCH ×2 (08:33→20:04)
[2020-06-29] MEDS: DOXYCYCLINE 100 MG in SODIUM CHLORIDE 0.9% 100 ML IVPB SCH ×2 (08:34→20:06)
[2020-06-29] MEDS: NYSTATIN 100,000UNIT/GM CREAM 30 GM TUBE TOPICAL SCH ×2 (08:35→20:06)
[2020-06-29] MEDS: HYDROcodone/APAP 5-325MG 1 EACH TAB PO PRN (09:29)
--- NOTE | 2020-06-29 10:19 | US ---
EXAMINATION TYPE: US venous doppler duplex LE BI DATE OF EXAM: 06/29/2020 10:07 AM COMPARISON: NONE CLINICAL HISTORY: 59-year-old male pain, swelling, Rule out DVT. SIDE PERFORMED: Bilateral TECHNIQUE: The lower extremity deep venous system is examined utilizing real time linear array sonog phillip with graded compression, doppler sonography and color-flow sonography. VESSELS IMAGED: Femoral Vein Popliteal Vein Fishing Instructor notes: Patient weighs 448lbs, has extensive interstitial, pitting edema. Right Leg: Visualization with doppler of proximal, mid, distal femoral vein and mid popliteal vein s hows no DVT. Severely limited study, see above. Left Leg: Visualization with doppler of proximal, mid, distal femoral vein and mid popliteal vein deja ws no DVT. Severely limited study, see above. IMPRESSION: Severely limited exam due to the degree of swelling and patient size. Only the superficia l femoral vein and mid popliteal vein could be assessed on either side. No DVT at these levels. Remai glo levels are nondiagnostic.
--- NOTE | 2020-06-29 11:04 | P.PN ---
Subjective Progress Note Date: 06/29/20 This is a 59-year-old male patient was morbidly obese and carries a BMI 56.7. He also has chronic hypoxic and hypercapnic respiratory failure, obstructive sleep apnea, obesity hypoventilation syndrome possible COPD. Other comorbidities include previous bariatric surgery, diabetes mellitus, hypertensio n and hyperlipidemia and addition to chronic congestion heart failure, chronic atrial fibrillation and chronic kidney disease.. He does hospitalization was in August 2019. At that time the patient came in with massive fluid overload. His blood gases showed an acute on top of chronic hypercapnic respiratory failure and administered acidosis. He was offered BiPAP therapy. He gradually improved and was discharged home on 2 L of oxygen by nasal cannula noninvasive positive pressure ventilation in addition to his noninvasive positive pressure ventilator. The patient was brought into the emergency department because of worsening shortness of breath and diminished level of consciousness. He was very difficult to keep him arouse and he was falling asleep repetitively. In the emergency department, blood gases was done and the patient was found to have an acute on top of chronic respiratory acidosis with a pH of 7.27 and a pCO2 of 88 and pO2 of 76. This was on FiO2 of 36%. Currently the patient in the BiPAP at a pressure of 12/5. He remains somewhat lethargic yet more arousable com pared to earlier. His creatinine is 1.5 with a mean of 59. The hemoglobin is at 11.4. The chest x-ray shows evidence of cardiomegaly along with scattered senescent parenchymal changes and some elevation of the right hemidiaphragm. There is also increased pulmonary vessel markings. The patient's lactic acid level is at 0.7. ProBNP level is 4170 and his serum bicarb is at 39. He is afebrile. His cardiac rhythm is atrial fibrillation with a rate of 106 without any acute ischemic changes. There is an incomplete left bundle branch block pattern. On 06/27/2020, the patient is much improved compared to yesterday. He got transferred to the intensive care unit as the patient was quite obtunded and lethargic and he was in hypercapnic the story failure and CO2 narcosis. Based on this, the patient was started on Lasix drip at 5 mg an hour. He has made excellent urine output overnight and the patient is a negative fluid balance of at least 2 L over the past 24 hours. He was also supported with a BiPAP and he was receiving BiPAP at a pressure of 12/5 cm of water and FiO2 of 40%. A repeat blood gases from today showed a pH of 7.38 with a pCO2 of 64 and pO2 of 76. Awake and alert and following commands and answering questions. The serum bicarb currently is at 36. BUN is a 56 a creatinine of 1.5. Lasix drip is at 5 mg an hour. No other significant issues. Following commands and answering questions. 2019, the patient is being seen for a follow-up. The patient is doing well and has no specific complaints. No significant alteration in his mental status. The patient is currently on 4 L of oxygen by nasal cannula. Blood gases from this morning while on nasal cannula showed a pH of 7.35 with a pCO2 of 80 and pO2 of 98. The patient is a negative fluid balance while being on Lasix at 10 mg an hour. Menstrual balance is -1.4 L. Overnight, he was kept on BiPAP at a pressure of 12/5 with an FiO2 of 40%. He remains in atrial fibrillation at the rate of 108. No fever. No chills. No significant worsening in her renal function and the creatinine is stable at 1.6 with a BUN of 60. Serum bicarb is 41. Lower extremity edema is also improving. The wounds in lower extremities have been appropriately dressed. 06/29/2020, the patient remains on Lasix drip at 5 mg an hour. Fluid balance is negative more than 2 L over the past 24 hours. He is showing improvement in the fluid balance and lower extremity edema. Nevertheless, he continues to have significant amount of edema in all 4 extremities. His morning blood gases while on the BiPAP showed a pH of 7.28 with a pCO2 of 77 and pO2 of 95. Cellulitis is also improving in lower extremities. He is currently off the BiPAP. Overnight, he was kept on a BiPAP pressure of 12/5 cm of water and FiO2 of 40%. Currently is on 2 L of oxygen by nasal cannula. His cardiac rhythm is atrial fibrillation. The patient remains on Pradaxa for long-term anticoagulation. Repeat blood gases was done while on 4 L of oxygen by nasal cannula showed a pH of 7.31 with a pCO2 of 91 and pO2 of 72. Serum bicarb is at 37. No other significant events overnight. He is tolerating his diet. No active mentation. Objective - Vital Signs Vital signs: Vital Signs Temp 97.7 F 06/29/20 08:00 Pulse 90 06/29/20 10:00 Resp 14 06/29/20 10:00 BP 90/80 06/28/20 10:00 Pulse Ox 90 L 06/29/20 10:00 Intake & Output 06/28/20 06/29/20 06/29/20 18:59 06:59 18:59 Intake Total 434 198 733.75 Output Total 1975 965 775 Balance -1541 -767 -41.25 Weight 203.5 kg Intake: IV 334 198 172 .9 kvo 115 110 40 Doxycycline 100 mg In 100 100 Sodium Chloride 0.9% 100 ml @ 100 mls/hr IVPB Q12HR NIKA Rx#:[id number] Furosemide 100 mg In 80 55 20 Sodium Chloride 0.9% 90 ml @ 5 MG/HR 5 mls/hr IV .Q20H NIKA Rx#:[id number] Pressure Bags 0.9 39 33 12 Intake, IV Titration 100 81.75 Amount Furosemide 100 mg In 100 81.75 Sodium Chloride 0.9% 90 ml @ 5 MG/HR 5 mls/hr IV .Q20H NIKA Rx#:[id number] Oral 480 Output: Urine 1974 965 775 Other: Voiding Method Indwelling Catheter Indwelling Catheter Indwelling Catheter ABP, PAP, CO, CI - Last Documented Arterial Blood Pressure 129/68 - Exam Patient is morbidly obese with a BMI of 56.7. Awake and alert and following commands. He is currently on 4 L of oxygen by nasal cannula. Head exam was generally normal. There was no scleral icterus or corneal arcus. Mucous membranes were moist. Neck was supple and without jugular venous distension, thyromegaly, or carotid bruits. Carotids were easily palpable bilaterally. There was no adenopathy. The patient has a Mallampati class IV and there is no goiter or neck masses. Lungs sounds are diminished in lung bases bilaterally. Crackles or wheezes could not be appreciated yet for the most part the breast on that equal and symmetrical. Cardiac exam revealed the PMI to be normally situated and sized. The rhythm was irregular and was consistent with atrial fibrillation. and no extrasystoles were noted during several minutes of auscultation. The first and second heart sounds were normal and physiologic splitting of the second heart sound was noted. There were no murmurs, rubs Abdomen is morbidly obese and orders cannot be accurately palpated. There is abdominal wall edema. There is no direct tenderness. No rebound tenderness or guarding at this point in time. Extremities revealed +2-3 pitting edema in all 4 extremities more so in the lower extremity is bilaterally especially in the thighs and just below the knee. There is also significant erythema and skin ulceration involving the right lower extremity above the ankle extending anteriorly over the right lower extre mity and a stage I to 2 open wound anteriorly without evidence of any active drainage or purulent material. No rashes. Pulses are diminished in all 4 extremities. Neurologically, alert and oriented 3 without any focal neurological deficit. - Labs CBC & Chem 7: 06/29/20 04:30 06/29/20 04:30 Labs: Abnormal Lab Results - Last 24 Hours (Table) 06/28/20 06/28/20 06/28/20 Range/Units 11:15 11:46 17:05 RBC (4.30-5.90) m/uL Hgb (13.0-17.5) gm/dL MCV (80.0-100.0) fL MCHC (31.0-37.0) g/dL RDW (11.5-15.5) % Plt Count (150-450) k/uL ABG pH (7.35-7.45) ABG pCO2 (35-45) mmHg ABG pO2 (83-108) mmHg ABG HCO3 (21-25) mmol/L ABG Total CO2 (19-24) mmol/L ABG O2 Saturation (94-97) % Carbon Dioxide (22-30) mmol/L BUN (9-20) mg/dL Creatinine (0.66-1.25) mg/dL Glucose (74-99) mg/dL POC Glucose (mg/dL) 128 H 140 H (75-99) mg/dL Total Protein (6.3-8.2) g/dL Albumin (3.5-5.0) g/dL Ur Leukocyte Esterase Trace H (Negative) Urine Bacteria Rare H (None) /hpf Hyaline Casts 30 H (0-2) /lpf Urine Mucus Rare H (None) /hpf 06/28/20 06/29/20 06/29/20 Range/Units 21:32 04:30 04:30 RBC 3.87 L (4.30-5.90) m/uL Hgb 11.7 L (13.0-17.5) gm/dL MCV 100.7 H (80.0-100.0) fL MCHC 30.1 L (31.0-37.0) g/dL RDW 16.8 H (11.5-15.5) % Plt Count 149 L (150-450) k/uL ABG pH (7.35-7.45) ABG pCO2 (35-45) mmHg ABG pO2 (83-108) mmHg ABG HCO3 (21-25) mmol/L ABG Total CO2 (19-24) mmol/L ABG O2 Saturation (94-97) % Carbon Dioxide 37 H (22-30) mmol/L BUN 58 H (9-20) mg/dL Creatinine 1.39 H (0.66-1.25) mg/dL Glucose 113 H (74-99) mg/dL POC Glucose (mg/dL) 144 H (75-99) mg/dL Total Protein 5.5 L (6.3-8.2) g/dL Albumin 2.9 L (3.5-5.0) g/dL Ur Leukocyte Esterase (Negative) Urine Bacteria (None) /hpf Hyaline Casts (0-2) /lpf Urine Mucus (None) /hpf 06/29/20 06/29/20 06/29/20 Range/Units 04:34 06:55 08:04 RBC (4.30-5.90) m/uL Hgb (13.0-17.5) gm/dL MCV (80.0-100.0) fL MCHC (31.0-37.0) g/dL RDW (11.5-15.5) % Plt Count (150-450) k/uL ABG pH 7.28 L 7.31 L (7.35-7.45) ABG pCO2 95 H* 91 H* (35-45) mmHg ABG pO2 77 L 72 L (83-108) mmHg ABG HCO3 45 H* 46 H* (21-25) mmol/L ABG Total CO2 48 H 49 H (19-24) mmol/L ABG O2 Saturation 93.6 L (94-97) % Carbon Dioxide (22-30) mmol/L BUN (9-20) mg/dL Creatinine (0.66-1.25) mg/dL Glucose (74-99) mg/dL POC Glucose (mg/dL) 120 H (75-99) mg/dL Total Protein (6.3-8.2) g/dL Albumin (3.5-5.0) g/dL Ur Leukocyte Esterase (Negative) Urine Bacteria (None) /hpf Hyaline Casts (0-2) /lpf Urine Mucus (None) /hpf Microbiology - Last 24 Hours (Table) 06/26/20 10:05 Blood Culture - Preliminary Blood No Growth after 48 hours Assessment and Plan Plan: 1 altered mental status secondary to acute on chronic hypercapnic respiratory failure and CO2 narcosis which has recovered and the patient's acid base status is improved considerably along with his mental status. The patient continues to be diuresed with Lasix 5 mg an hour. Mental status is stable. Acid base status is also stable and the patient has a blood gas that shows chronic hypercapnic respiratory failure with secondary metabolic alkalosis. 2 chronic hypoxic respiratory failure 3 chronic hypercapnic respiratory failure 4 obstructive sleep apnea syndrome/obesity hypoventilation syndrome. The patient is in a retirement on a BiPAP at a pressure of 10/6 cm of water. He is currently utilizing BiPAP at a pressure of 12/5 cm of water intermittently during the day and continuously at nighttime. 3 chronic cor pulmonale pulmonary pressure on the most recent echocardiogram is 48 mm of mercury, right-sided cardiac structures are dilated. The patient also has a component of LV dysfunction with an ejection fraction of 50% 4 morbid obesity previous bariatric surgery , gastric sleeve ,with initial successful weight loss however the patient subsequently started gaining weight 5 chronic obstructive lung disease 6 atrial fibrillation rate controlled, and the patient is on long-term anticoagulation with Pradaxa 7 history of bariatric surgical procedure , Previous gastric sleeve (unsuccessful) 8 hypertensive disorder 9 hyperlipidemia 10 chronic kidney disease, stage III, renal function is stable 11 Chronic edema of lower extremity, improving 12 chronic venous ulceration of the right lower extremity stage I to 2 over the anterior aspect of the right lower extremity 13 diabetes mellitus Plan Continue Lasix drip at the rate of 5 mg an hour. Monitor electrolytes. Monitor serum bicarbonate was from a significant alkalosis. BiPAP overnight and an oxygen at 4 L per minute nasal cannula during the day. BiPAP can be also intermittently during the day. Repeat blood gases again in the morning monitor BUN and creatinine and electrolytes Monitor mental status, and the patient is essentially improved for now Oxygen at 4 L per minute nasal cannula Regular diet Wound care to the lower extremity Keep the patient ICU for 24 hours. Continue supportive care
[2020-06-29 11:47] LABS: Glucose,Whole Blood 125 mg/dL (75-99)
--- NOTE | 2020-06-29 11:59 | PN ---
PROGRESS NOTE Patient is seen for followup for acute kidney injury. He is currently being diuresed for volume overload. Patient is maintained on Lasix drip. He states overall he is feeling better. Serum creatinine has improved to 1.39 from 1.6 yesterday. PHYSICAL EXAMINATION: On examination today, blood pressure was 129/68, heart rate 90 per minute, patient is afebrile. Examination of the heart S1, S2. Examination of the lungs, bilateral breath sounds are heard. Decreased breath sounds at bases. Abdomen is soft, morbidly obese. Examination lower extremities shows bilateral extremities to be wrapped. Chronic skin changes are noted. QUILT SEWER exam grossly intact. LAB: Show sodium 142, potassium 3.9, chloride 102, CO2 37, BUN 58, creatinine 1.39, hemoglobin 11.7 g/dL. ASSESSMENT: 1. Acute kidney injury, cardiorenal, currently improving. 2. Severe volume overload. Maintained on Lasix drip. 3. Chronic kidney disease stage 3. Baseline creatinine 1.5 secondary to nephrosclerosis. 4. Acute on chronic diastolic congestive heart failure with a moderate tricuspid regurg and pulmonary hypertension. 5. Acute on chronic hypercapnic respiratory failure. 6. Metabolic alkalosis secondary to diuresis. PLAN: Continue with the Lasix drip. Repeat labs in a.m. MMODL / IJN: [id number] /
[2020-06-29] MEDS: FERROUS SULFATE 325 MG TAB PO SCH (13:11)
[2020-06-29 13:40] LABS: Hemoglobin A1C 5.6 % (4.0-6.0)
[2020-06-29 16:56] LABS: Glucose,Whole Blood 135 mg/dL (75-99)
[2020-06-29] MEDS: ALPRAZolam 0.5 MG TAB PO PRN (16:59)
[2020-06-29] MEDS: ATORVASTATIN 10 MG TAB PO SCH (20:05)
[2020-06-29] MEDS: CYANOCOBALAMIN 500 MCG TAB PO SCH (20:05)
[2020-06-29] MEDS: FOLIC ACID 1 MG TAB PO SCH (20:06)
[2020-06-29 20:29] LABS: Glucose,Whole Blood 154 mg/dL (75-99)
[2020-06-30] MEDS: ACETAMINOPHEN TAB 325 MG TAB PO SCH ×3 (00:23→16:43)
[2020-06-30] MEDS: FUROSEMIDE 100 MG in SODIUM CHLORIDE 0.9% 90 ML IV SCH ×2 (00:49→20:19)
[2020-06-30 04:55] LABS: ABG Base Excess 19.9 mmol/L; ABG PH 7.31 (7.35-7.45); ABG PO2 78 mmHg (83-108); ABG TCO2 49 mmol/L (19-24)
[2020-06-30 05:09] LABS: ABG HCO3 46 mmol/L (21-25); Allen Test Performed? no
[2020-06-30 05:53] LABS: Anisocytosis Slight; Basophils % (A) 1 %; Eosinophils # (A) 0.3 k/uL (0-0.7); Eosinophils % (A) 7 %; HCT 40.5 % (39.0-53.0); Hypochromasia Marked; Lymphocytes # (A) 0.8 k/uL (1.0-4.8); Lymphocytes % (A) 17 %; MCH 29.8 pg (25.0-35.0); MCHC 29.6 g/dL (31.0-37.0); MCV 100.8 fL (80.0-100.0); Macrocytosis Slight; Mean Platelet Volume 8.5; Monocytes # (A) 0.3 k/uL (0-1.0); Monocytes % (A) 7 %; Neutrophils # (A) 3.2 k/uL (1.3-7.7); Neutrophils % (A) 67 %; Platelet Count 146 k/uL (150-450); RBC 4.02 m/uL (4.30-5.90); RDW 16.6 % (11.5-15.5); WBC 4.8 k/uL (3.8-10.6)
[2020-06-30 05:56] LABS: Calcium 9.6 mg/dL (8.4-10.2); Potassium 4.1 mmol/L (3.5-5.1)
[2020-06-30 06:50] LABS: Glucose,Whole Blood 131 mg/dL (75-99)
[2020-06-30] MEDS: INSULIN ASPART (NovoLOG) 100 UNIT/ML VIAL SQ SCH ×4 (06:50→20:54)
[2020-06-30] MEDS: PANTOPRAZOLE 40 MG TABLET PO SCH (07:00)
--- NOTE | 2020-06-30 07:33 | P.PN ---
Subjective From records 59-year-old male came in with complaints of shortness of breath excessively drowsy patient is able to provide me history with easily goes intosleep. Because of which I am asked for from her ABGs and ABGs were ordered and the ABGs are showing mild the respiratory acidosis with a pCO2 of around 90. Patient is morbidly obese does have a obesity hypoventilation syndrome and sleep apnea. Patient does have history of COPD as well as chronic diastolic dysfunction. Patient's chest x-ray did not show any pneumonic infiltrate patient was comparing of cough with greenish sputum production. Patient does have extensive bilateral pedal edema probably mostly due to chronic venous stasis rather than heart failure itself I'm unable to assess JVD, BNP is around 4170. Patient uses anywhere between 4-5 L of oxygen at home. 06/28/2020 Patient respiratory acidosis and hypercapnia improved with BiPAP patient was switched to 6 L still using BiPAP and as-needed basis when he sleeps. Patient apparently will require noninvasive ventilationeven after discharge.patient is much more awake much less sleepy today. 06/29/2020 patient remains on the IV Lasix drip mild worsening of serum creatinine Lasix drip is being changed to 5 mg lower as is having significant urine output still hasn't been pedal edema does have some contraction alkalosis.patient 4 L apart from surgery 92% this is his baseline patient uses BiPAP when he sleeps. Constitutional: Denied any fatigue denied any fever. Cardio vascular: denied any chest pain, palpitations Gastrointestinal denied any nausea vomiting Pulmonary: Denied any shortness of breath cough Neurologic denied any new focal deficits Date of service for this note 06/29/2020 Patient mentation is improved however he still looks a little drowsy, history And dyspneic with and little phlegm. Vitas looks stable and he is saturating 90 associated to oxygen via nasal cannula Patient is still needing BiPAP overnight. Remains on Lasix drip at 5 mL/h. And he is making good urine output about 50-100 milliliters per hour. Acute Patient was complaining of from bilateral leg pain, venous ultrasound showing no DVT Continue with Pradaxa, doxycycline and Lasix drip Patient may benefit from inpatient rehab upon discharge CONSTITUTIONAL: No fever, no malaise, no fatigue. HEENT: No recent visual problems or hearing problems. Denied any sore throat. CARDIOVASCULAR: No orthopnea, PND, no palpitations, no syncope. PULMONARY: No shortness of breath, no cough, no hemoptysis. GASTROINTESTINAL: No diarrhea, no nausea, no vomiting, no abdominal pain. Normoa ctive bowel sounds. NEUROLOGICAL: No headaches, no weakness, no numbness. Active Medications Generic Name Dose Route Start Last Admin Trade Name Freq PRN Reason Stop Dose Admin Acetaminophen 650 mg 06/26/20 16:00 06/30/20 00:23 Tylenol Tab PO 650 mg Q8HR NIKA Administration Hydrocodone Bitart/Acetaminophen 1 each 06/29/20 09:00 06/29/20 09:29 [place] 5-325 PO 1 each Q6HR PRN Administration Pain Albuterol/Ipratropium 3 ml 06/26/20 12:00 06/29/20 19:34 Duoneb 0.5 Mg-3 Mg/3 Ml Soln INHALATION 3 ml RT-QID NIKA Administration Albuterol/Ipratropium 3 ml 06/26/20 11:28 Duoneb 0.5 Mg-3 Mg/3 Ml Soln INHALATION RT-Q4H PRN Shortness Of Breath Or Wheezing Allopurinol 300 mg 06/27/20 09:00 06/29/20 08:32 Zyloprim PO 300 mg DAILY NIKA Administration Alprazolam 0.5 mg 06/28/20 09:38 06/29/20 16:59 Xanax PO 0.5 mg HS PRN Administration Anxiety Aspirin 81 mg 06/27/20 09:00 06/29/20 08:32 Aspirin PO 81 mg DAILY NIKA Administration Atorvastatin Calcium 10 mg 06/26/20 21:00 06/29/20 20:05 Lipitor PO 10 mg HS NIKA Administration Cyanocobalamin 500 mcg 06/26/20 21:00 06/29/20 20:05 Vitamin B-12 PO 500 mcg HS NIKA Administration Dabigatran 150 mg 06/26/20 21:00 06/29/20 20:04 Pradaxa PO 150 mg BID NIKA Administration Famotidine 20 mg 06/28/20 21:00 06/29/20 20:04 Pepcid PO 20 mg BID NIKA Administration Ferrous Sulfate 325 mg 06/27/20 12:00 06/29/20 13:11 Feosol PO 325 mg DAILY@1200 NIKA Administration Folic Acid 0.5 mg 06/26/20 21:00 06/29/20 20:06 Folic Acid PO 0.5 mg HS NIKA Administration Furosemide 100 mg/ Sodium 100 mls @ 5 mls/hr 06/26/20 15:00 06/30/20 00:49 Chloride IV 5 mg/hr .Q20H NIKA 5 mls/hr Administration 5 MG/HR Doxycycline Hyclate 100 mg/ 100 mls @ 100 mls/hr 06/26/20 21:00 06/29/20 20:06 Sodium Chloride IVPB 100 mls/hr Q12HR NIKA Administration Insulin Aspart 0 unit 06/27/20 17:30 06/30/20 06:50 Novolog SQ Not Given ACHS [facility] Protocol Lactulose 20 gm 06/26/20 13:33 Cephulac PO BID PRN Constipation Magnesium Hydroxide 2,400 mg 06/26/20 13:33 Milk Of Magnesia PO DAILY PRN Constipation Metoprolol Tartrate 50 mg 06/26/20 16:00 06/29/20 20:46 Lopressor PO 50 mg TID NIKA Administration Miscellaneous Information 1 each 06/29/20 06:40 Potassium Per Protocol MISCELLANE DAILY PRN Per Protocol Protocol Nystatin 1 applic 06/26/20 21:00 06/29/20 20:06 Mycostatin Cream TOPICAL 1 applic BID [facility] Administration Pantoprazole Sodium 40 mg 06/27/20 07:30 06/30/20 07:00 Protonix PO 40 mg [id number] NIKA Administration Pregabalin 100 mg 06/26/20 21:00 06/29/20 20:04 Lyrica PO 100 mg BID NIKA Administration Objective - Vital Signs Vital signs: Vital Signs Temp 98.5 F 06/29/20 20:00 Pulse 86 06/29/20 23:00 Resp 16 06/29/20 23:00 BP 90/80 06/28/20 10:00 Pulse Ox 95 06/29/20 23:00 Intake & Output 06/29/20 06/29/20 06/30/20 06:59 18:59 06:59 Intake Total 198 1235.75 348 Output Total 965 6195 615 Balance -767 -889.25 -267 Weight 203.5 kg Intake: IV 198 316 108 .9 kvo 110 120 60 Doxycycline 100 mg In 100 Sodium Chloride 0.9% 100 ml @ 100 mls/hr IVPB Q12HR NIKA Rx#:[id number] Furosemide 100 mg In 55 60 30 Sodium Chloride 0.9% 90 ml @ 5 MG/HR 5 mls/hr IV .Q20H NIKA Rx#:[id number] Pressure Bags 0.9 33 36 18 Intake, IV Titration 81.75 Amount Furosemide 100 mg In 81.75 Sodium Chloride 0.9% 90 ml @ 5 MG/HR 5 mls/hr IV .Q20H NIKA Rx#:[id number] Oral 838 240 Output: Urine 965 2125 615 Other: Voiding Method Indwelling Catheter Indwelling Catheter Indwelling Catheter ABP, PAP, CO, CI - Last Documented Arterial Blood Pressure 108/59 - Exam GENERAL: The patient is alert and oriented x3, not in any acute distress. Well developed, well nourished. HEENT: Pupils are round and equally reacting to light. EOMI. No scleral icterus. No conjunctival pallor. Normocephalic, atraumatic. No pharyngeal erythema. No thyromegaly. CARDIOVASCULAR: S1 and S2 present. No murmurs, rubs, or gallops. -PULMONARY: Chest is clear to auscultation, no crackles. Bilateral scattered wheezing ABDOMEN: Soft, nontender, nondistended, normoactive bowel sounds. No palpable organomegaly. MUSCULOSKELETAL: No joint swelling or deformity. -EXTREMITIES: No cyanosis, clubbing,. Bilateral pitting leg edema NEUROLOGICAL: Gross neurological examination did not reveal any focal deficits. SKIN: No rashes. no petechiae. - Labs CBC & Chem 7: 06/30/20 05:00 06/30/20 05:00 Labs: Abnormal Lab Results - Last 24 Hours (Table) 06/29/20 06/29/20 06/29/20 Range/Units 04:30 04:30 04:34 RBC 3.87 L (4.30-5.90) m/uL Hgb 11.7 L (13.0-17.5) gm/dL MCV 100.7 H (80.0-100.0) fL MCHC 30.1 L (31.0-37.0) g/dL RDW 16.8 H (11.5-15.5) % Plt Count 149 L (150-450) k/uL ABG pH 7.28 L (7.35-7.45) ABG pCO2 95 H* (35-45) mmHg ABG pO2 77 L (83-108) mmHg ABG HCO3 45 H* (21-25) mmol/L ABG Total CO2 48 H (19-24) mmol/L ABG O2 Saturation (94-97) % Carbon Dioxide 37 H (22-30) mmol/L BUN 58 H (9-20) mg/dL Creatinine 1.39 H (0.66-1.25) mg/dL Glucose 113 H (74-99) mg/dL POC Glucose (mg/dL) (75-99) mg/dL Total Protein 5.5 L (6.3-8.2) g/dL Albumin 2.9 L (3.5-5.0) g/dL 06/29/20 06/29/20 06/29/20 Range/Units 06:55 08:04 11:45 RBC (4.30-5.90) m/uL Hgb (13.0-17.5) gm/dL MCV (80.0-100.0) fL MCHC (31.0-37.0) g/dL RDW (11.5-15.5) % Plt Count (150-450) k/uL ABG pH 7.31 L (7.35-7.45) ABG pCO2 91 H* (35-45) mmHg ABG pO2 72 L (83-108) mmHg ABG HCO3 46 H* (21-25) mmol/L ABG Total CO2 49 H (19-24) mmol/L ABG O2 Saturation 93.6 L (94-97) % Carbon Dioxide (22-30) mmol/L BUN (9-20) mg/dL Creatinine (0.66-1.25) mg/dL Glucose (74-99) mg/dL POC Glucose (mg/dL) 120 H 125 H (75-99) mg/dL Total Protein (6.3-8.2) g/dL Albumin (3.5-5.0) g/dL 06/29/20 06/29/20 Range/Units 16:55 20:27 RBC (4.30-5.90) m/uL Hgb (13.0-17.5) gm/dL MCV (80.0-100.0) fL MCHC (31.0-37.0) g/dL RDW (11.5-15.5) % Plt Count (150-450) k/uL ABG pH (7.35-7.45) ABG pCO2 (35-45) mmHg ABG pO2 (83-108) mmHg ABG HCO3 (21-25) mmol/L ABG Total CO2 (19-24) mmol/L ABG O2 Saturation (94-97) % Carbon Dioxide (22-30) mmol/L BUN (9-20) mg/dL Creatinine (0.66-1.25) mg/dL Glucose (74-99) mg/dL POC Glucose (mg/dL) 135 H 154 H (75-99) mg/dL Total Protein (6.3-8.2) g/dL Albumin (3.5-5.0) g/dL Microbiology - Last 24 Hours (Table) 06/26/20 10:05 Blood Culture - Preliminary Blood No Growth after 72 hours Assessment and Plan Assessment: -acute on chronic hypercapnic respiratory failure: Secondary to obesity hypoventilation syndrome with bronchitis that may be some COPD exacerbation patient will be continued on doxycycline and the steroids for now -congestive heart failure chronic diastolic dysfunction with possible mild acute exacerbationpatient was started on Lasix drip and patient has improvement in kidney function after Lasix -contraction alkalosis -moderate pulmonary hypertension -Morbid obesity -COPD with acute exacerbation -bilateral chronic venous stasis -Chronic kidney disease stage III baseline creatinine of around 1.8 , patient had acute renal failure secondary to prerenal azotemia from heart failure improved with Lasix. -Respiratory acidosis secondary to assessment #1improved now -chronic A. fib on anticoagulation which will be resumed -Hyperlipidemia -Hypertension
[2020-06-30] MEDS: IPRATROPIUM-ALBUTEROL 3 ML NEB INHALATION SCH ×4 (07:44→19:35)
--- NOTE | 2020-06-30 08:23 | XR ---
EXAMINATION TYPE: XR chest 1V portable DATE OF EXAM: 06/30/2020 COMPARISON: 06/29/2020 INDICATION: Follow-up abnormal TECHNIQUE: Single frontal view of the chest is obtained. FINDINGS: The heart size is enlarged. The pulmonary vasculature is normal. The lungs are clear. There is resolution of previous right lower lobe infiltrate. IMPRESSION: 1. Moderate cardiomegaly, stable. 2. Right lower lobe infiltrate appears resolved.
[2020-06-30] MEDS: DOXYCYCLINE 100 MG in SODIUM CHLORIDE 0.9% 100 ML IVPB SCH ×3 (09:04→20:19)
[2020-06-30] MEDS: ASPIRIN 81 MG PO SCH (09:04)
[2020-06-30] MEDS: FAMOTIDINE 20 MG TAB PO SCH ×2 (09:05→20:18)
[2020-06-30] MEDS: METOPROLOL TARTRATE 50 MG TAB PO SCH ×3 (09:05→20:19)
[2020-06-30] MEDS: DABIGATRAN 150 MG CAP PO SCH ×2 (09:05→20:18)
[2020-06-30] MEDS: PREGABALIN 100 MG CAP PO SCH ×2 (09:05→20:19)
[2020-06-30] MEDS: allopurinoL 300 MG TAB PO SCH (09:05)
[2020-06-30] MEDS: NYSTATIN 100,000UNIT/GM CREAM 30 GM TUBE TOPICAL SCH ×2 (09:06→20:19)
--- NOTE | 2020-06-30 10:51 | P.PN ---
Subjective Progress Note Date: 06/30/20 This is a 59-year-old male patient was morbidly obese and carries a BMI 56.7. He also has chronic hypoxic and hypercapnic respiratory failure, obstructive sleep apnea, obesity hypoventilation syndrome possible COPD. Other comorbidities include previous bariatric surgery, diabetes mellitus, hypertensio n and hyperlipidemia and addition to chronic congestion heart failure, chronic atrial fibrillation and chronic kidney disease.. He does hospitalization was in August 2019. At that time the patient came in with massive fluid overload. His blood gases showed an acute on top of chronic hypercapnic respiratory failure and administered acidosis. He was offered BiPAP therapy. He gradually improved and was discharged home on 2 L of oxygen by nasal cannula noninvasive positive pressure ventilation in addition to his noninvasive positive pressure ventilator. The patient was brought into the emergency department because of worsening shortness of breath and diminished level of consciousness. He was very difficult to keep him arouse and he was falling asleep repetitively. In the emergency department, blood gases was done and the patient was found to have an acute on top of chronic respiratory acidosis with a pH of 7.27 and a pCO2 of 88 and pO2 of 76. This was on FiO2 of 36%. Currently the patient in the BiPAP at a pressure of 12/5. He remains somewhat lethargic yet more arousable com pared to earlier. His creatinine is 1.5 with a mean of 59. The hemoglobin is at 11.4. The chest x-ray shows evidence of cardiomegaly along with scattered senescent parenchymal changes and some elevation of the right hemidiaphragm. There is also increased pulmonary vessel markings. The patient's lactic acid level is at 0.7. ProBNP level is 4170 and his serum bicarb is at 39. He is afebrile. His cardiac rhythm is atrial fibrillation with a rate of 106 without any acute ischemic changes. There is an incomplete left bundle branch block pattern. On 06/27/2020, the patient is much improved compared to yesterday. He got transferred to the intensive care unit as the patient was quite obtunded and lethargic and he was in hypercapnic the story failure and CO2 narcosis. Based on this, the patient was started on Lasix drip at 5 mg an hour. He has made excellent urine output overnight and the patient is a negative fluid balance of at least 2 L over the past 24 hours. He was also supported with a BiPAP and he was receiving BiPAP at a pressure of 12/5 cm of water and FiO2 of 40%. A repeat blood gases from today showed a pH of 7.38 with a pCO2 of 64 and pO2 of 76. Awake and alert and following commands and answering questions. The serum bicarb currently is at 36. BUN is a 56 a creatinine of 1.5. Lasix drip is at 5 mg an hour. No other significant issues. Following commands and answering questions. 2019, the patient is being seen for a follow-up. The patient is doing well and has no specific complaints. No significant alteration in his mental status. The patient is currently on 4 L of oxygen by nasal cannula. Blood gases from this morning while on nasal cannula showed a pH of 7.35 with a pCO2 of 80 and pO2 of 98. The patient is a negative fluid balance while being on Lasix at 10 mg an hour. Menstrual balance is -1.4 L. Overnight, he was kept on BiPAP at a pressure of 12/5 with an FiO2 of 40%. He remains in atrial fibrillation at the rate of 108. No fever. No chills. No significant worsening in her renal function and the creatinine is stable at 1.6 with a BUN of 60. Serum bicarb is 41. Lower extremity edema is also improving. The wounds in lower extremities have been appropriately dressed. 06/29/2020, the patient remains on Lasix drip at 5 mg an hour. Fluid balance is negative more than 2 L over the past 24 hours. He is showing improvement in the fluid balance and lower extremity edema. Nevertheless, he continues to have significant amount of edema in all 4 extremities. His morning blood gases while on the BiPAP showed a pH of 7.28 with a pCO2 of 77 and pO2 of 95. Cellulitis is also improving in lower extremities. He is currently off the BiPAP. Overnight, he was kept on a BiPAP pressure of 12/5 cm of water and FiO2 of 40%. Currently is on 2 L of oxygen by nasal cannula. His cardiac rhythm is atrial fibrillation. The patient remains on Pradaxa for long-term anticoagulation. Repeat blood gases was done while on 4 L of oxygen by nasal cannula showed a pH of 7.31 with a pCO2 of 91 and pO2 of 72. Serum bicarb is at 37. No other significant events overnight. He is tolerating his diet. No active mentation. 06/30/2020, the patient is being seen for a follow-up is doing well. Remains in a negative fluid balance of another 2 L over the past 24 hours. His urine upper is in order of 200 mL an hour and the patient is on Lasix drip at family grams an hour. The patient's blood gas today showed a pH of 7.31 with a pCO2 of 93 and pO2 78. Serum bicarb is on the rise and the patient would benefit from Diamox. Overnight, he is using BiPAP at a pressure of 12/5 cm of water and FiO2 of 40%. During the days on feeds of oxygen by nasal cannula. Cardiac rhythm is sinus and the patient is anticoagulated. Awake and alert and there is no signs of any CO2 narcosis. Objective - Vital Signs Vital signs: Vital Signs Temp 98.4 F 06/30/20 08:00 Pulse 111 H 06/30/20 09:00 Resp 20 06/30/20 09:00 BP 90/80 06/28/20 10:00 Pulse Ox 90 L 06/30/20 09:00 Intake & Output 06/29/20 06/30/20 06/30/20 18:59 06:59 18:59 Intake Total 1235.75 923.083 376 Output Total 2125 1440 350 Balance -889.25 -516.917 26 Weight 199.35 kg Intake: IV 316 234 136 .9 kvo 120 130 20 Doxycycline 100 mg In 100 100 Sodium Chloride 0.9% 100 ml @ 100 mls/hr IVPB Q12HR NIKA Rx#:[id number] Furosemide 100 mg In 60 65 10 Sodium Chloride 0.9% 90 ml @ 5 MG/HR 5 mls/hr IV .Q20H NIKA Rx#:[id number] Pressure Bags 0.9 36 39 6 Intake, IV Titration 81.75 89.083 Amount Furosemide 100 mg In 81.75 89.083 Sodium Chloride 0.9% 90 ml @ 5 MG/HR 5 mls/hr IV .Q20H NIKA Rx#:[id number] Oral 838 600 240 Output: Urine 2125 1440 350 Other: Voiding Method Indwelling Catheter Indwelling Catheter Indwelling Catheter ABP, PAP, CO, CI - Last Documented Arterial Blood Pressure 145/68 - Exam Patient is morbidly obese with a BMI of 56.7. Awake and alert and following commands. He is currently on 4 L of oxygen by nasal cannula. Head exam was generally normal. There was no scleral icterus or corneal arcus. Mucous membranes were moist. Neck was supple and without jugular venous distension, thyromegaly, or carotid bruits. Carotids were easily palpable bilaterally. There was no adenopathy. The patient has a Mallampati class IV and there is no goiter or neck masses. Lungs sounds are diminished in lung bases bilaterally. Crackles or wheezes could not be appreciated yet for the most part the breast on that equal and symmetrical. Cardiac exam revealed the PMI to be normally situated and sized. The rhythm was irregular and was consistent with atrial fibrillation. and no extrasystoles were noted during several minutes of auscultation. The first and second heart sounds were normal and physiologic splitting of the second heart sound was noted. There were no murmurs, rubs Abdomen is morbidly obese and orders cannot be accurately palpated. There is abdominal wall edema. There is no direct tenderness. No rebound tenderness or guarding at this point in time. Extremities revealed +2-3 pitting edema in all 4 extremities more so in the lower extremity is bilaterally especially in the thighs and just below the knee. There is also significant erythema and skin ulceration involving the right lower extremity above the ankle extending anteriorly over the right lower extremity and a stage I to 2 open wound anteriorly without evidence of any active drainage or purulent material. No rashes. Pulses are diminished in all 4 extremities. Neurologically, alert and oriented 3 without any focal neurological deficit. - Labs CBC & Chem 7: 06/30/20 05:00 06/30/20 05:00 Labs: Abnormal Lab Results - Last 24 Hours (Table) 06/29/20 06/29/20 06/29/20 Range/Units 11:45 16:55 20:27 RBC (4.30-5.90) m/uL Hgb (13.0-17.5) gm/dL MCV (80.0-100.0) fL MCHC (31.0-37.0) g/dL RDW (11.5-15.5) % Plt Count (150-450) k/uL Lymphocytes # (1.0-4.8) k/uL ABG pH (7.35-7.45) ABG pCO2 (35-45) mmHg ABG pO2 (83-108) mmHg ABG HCO3 (21-25) mmol/L ABG Total CO2 (19-24) mmol/L Chloride (98-107) mmol/L Carbon Dioxide (22-30) mmol/L BUN (9-20) mg/dL Creatinine (0.66-1.25) mg/dL Glucose (74-99) mg/dL POC Glucose (mg/dL) 125 H 135 H 154 H (75-99) mg/dL 06/30/20 06/30/20 06/30/20 Range/Units 04:55 05:00 05:00 RBC 4.02 L (4.30-5.90) m/uL Hgb 12.0 L (13.0-17.5) gm/dL MCV 100.8 H (80.0-100.0) fL MCHC 29.6 L (31.0-37.0) g/dL RDW 16.6 H (11.5-15.5) % Plt Count 146 L (150-450) k/uL Lymphocytes # 0.8 L (1.0-4.8) k/uL ABG pH 7.31 L (7.35-7.45) ABG pCO2 93 H* (35-45) mmHg ABG pO2 78 L (83-108) mmHg ABG HCO3 46 H* (21-25) mmol/L ABG Total CO2 49 H (19-24) mmol/L Chloride 97 L (98-107) mmol/L Carbon Dioxide 45 H* (22-30) mmol/L BUN 59 H (9-20) mg/dL Creatinine 1.49 H (0.66-1.25) mg/dL Glucose 103 H (74-99) mg/dL POC Glucose (mg/dL) (75-99) mg/dL 06/30/20 Range/Units 06:48 RBC (4.30-5.90) m/uL Hgb (13.0-17.5) gm/dL MCV (80.0-100.0) fL MCHC (31.0-37.0) g/dL RDW (11.5-15.5) % Plt Count (150-450) k/uL Lymphocytes # (1.0-4.8) k/uL ABG pH (7.35-7.45) ABG pCO2 (35-45) mmHg ABG pO2 (83-108) mmHg ABG HCO3 (21-25) mmol/L ABG Total CO2 (19-24) mmol/L Chloride (98-107) mmol/L Carbon Dioxide (22-30) mmol/L BUN (9-20) mg/dL Creatinine (0.66-1.25) mg/dL Glucose (74-99) mg/dL POC Glucose (mg/dL) 131 H (75-99) mg/dL Microbiology - Last 24 Hours (Table) 06/26/20 10:05 Blood Culture - Preliminary Blood No Growth after 72 hours Assessment and Plan Plan: 1 altered mental status secondary to acute on chronic hypercapnic respiratory failure and CO2 narcosis which has recovered and the patient's acid base status is improved considerably along with his mental status. The patient continues to be diuresed with Lasix 5 mg an hour. Mental status is stable. Acid base status is also stable and the patient has a blood gas that shows chronic hypercapnic respiratory failure with secondary metabolic alkalosis. We are still in the process of diuresing this patient with a Lasix drip. He is losing weight. Extremity edema is gradually improving although there is still significant amount of swelling. Urine output is order of 200 mL an hour. 2 chronic hypoxic respiratory failure 3 chronic hypercapnic respiratory failure 4 obstructive sleep apnea syndrome/obesity hypoventilation syndrome. The merlin ent is in a fpc on a BiPAP at a pressure of 10/6 cm of water. He is currently utilizing BiPAP at a pressure of 12/5 cm of water intermittently during the day and continuously at nighttime. 3 chronic cor pulmonale pulmonary pressure on the most recent echocardiogram is 48 mm of mercury, right-sided cardiac structures are dilated. The patient also has a component of LV dysfunction with an ejection fraction of 50% 4 morbid obesity previous bariatric surgery , gastric sleeve ,with initial successful weight loss however the patient subsequently started gaining weight 5 chronic obstructive lung disease 6 atrial fibrillation rate controlled, and the patient is on long-term anticoagulation with Pradaxa 7 history of bariatric surgical procedure , Previous gastric sleeve (unsuccessful) 8 hypertensive disorder 9 hyperlipidemia 10 chronic kidney disease, stage III, renal function is stable 11 Chronic edema of lower extremity, improving 12 chronic venous ulceration of the right lower extremity stage I to 2 over the anterior aspect of the right lower extremity 13 diabetes mellitus Plan Continue Lasix drip at the rate of 5 mg an hour. Monitor electrolytes. Monitor serum bicarbonate was from a significant alkalosis. Give the patient Diamox 500 mg every 12 hours 2 doses BiPAP overnight and an oxygen at 3 L per minute nasal cannula during the day. BiPAP can be also intermittently during the day. Repeat blood gases again in the morning monitor BUN and creatinine and electrolytes Monitor mental status, and the patient is essentially improved for now Oxygen at 3 L per minute nasal cannula Regular diet Wound care to the lower extremity Keep the patient ICU for another 24 hours. Continue supportive care
[2020-06-30 11:57] LABS: Glucose,Whole Blood 121 mg/dL (75-99)
[2020-06-30] MEDS: FERROUS SULFATE 325 MG TAB PO SCH (12:50)
--- NOTE | 2020-06-30 15:06 | PN ---
PROGRESS NOTE Patient is seen for followup for acute kidney injury and volume overload currently maintained on Lasix drip. Renal function is fairly stable. Serum creatinine is 1.49, which is slightly up from 1.39 yesterday. However, previously it was 1.67. The patient continues to have good urine output. 24 hour urine output was about 3.5 L. Weight has decreased as well. PHYSICAL EXAMINATION: Patient is comfortable, awake, not in any acute distress. Blood pressure 118/65, heart rate 105 per minute, he is afebrile. Examination of the heart S1, S2. Examination of the lungs, bilateral breath sounds are heard. Abdomen is soft. Morbidly obese. Examination of lower extremities shows bilateral extremities to be wrapped. [employer] exam grossly intact. LABS: Show sodium 142, potassium 4.1, chloride 97, BUN 59, serum creatinine 1.49, CO2 is 45, hemoglobin 12.0 g/dL. ASSESSMENT: 1. Acute kidney injury cardiorenal, currently stable. Maintained on Lasix drip which we can continue for the weekend. 2. Volume overload slowly improving. Weight has decreased. The patient is feeling better. Swelling has decreased as well. 3. Chronic kidney disease stage III. Baseline creatinine about 1.5 secondary to nephrosclerosis. 4. Acute on chronic diastolic congestive heart failure with moderate tricuspid regurgitation and pulmonary hypertension. 5. Acute on chronic hypercapnic respiratory failure. 6. Metabolic alkalosis secondary to diuresis. PLAN: Continue with the Lasix drip. Repeat labs in a.m. MMODL / IJN: [id number] /
[2020-06-30 17:15] LABS: Glucose,Whole Blood 136 mg/dL (75-99)
[2020-06-30] MEDS: ATORVASTATIN 10 MG TAB PO SCH (20:18)
[2020-06-30] MEDS: CYANOCOBALAMIN 500 MCG TAB PO SCH (20:18)
[2020-06-30] MEDS: FOLIC ACID 1 MG TAB PO SCH (20:20)
[2020-06-30 20:54] LABS: Glucose,Whole Blood 147 mg/dL (75-99)
--- NOTE | 2020-06-30 22:01 | P.PN ---
Subjective From records 59-year-old male came in with complaints of shortness of breath excessively drowsy patient is able to provide me history with easily goes intosleep. Because of which I am asked for from her ABGs and ABGs were ordered and the ABGs are showing mild the respiratory acidosis with a pCO2 of around 90. Patient is morbidly obese does have a obesity hypoventilation syndrome and sleep apnea. Patient does have history of COPD as well as chronic diastolic dysfunction. Patient's chest x-ray did not show any pneumonic infiltrate patient was comparing of cough with greenish sputum production. Patient does have extensive bilateral pedal edema probably mostly due to chronic venous stasis rather than heart failure itself I'm unable to assess JVD, BNP is around 4170. Patient uses anywhere between 4-5 L of oxygen at home. 06/28/2020 Patient respiratory acidosis and hypercapnia improved with BiPAP patient was switched to 6 L still using BiPAP and as-needed basis when he sleeps. Patient apparently will require noninvasive ventilationeven after discharge.patient is much more awake much less sleepy today. 06/29/2020 patient remains on the IV Lasix drip mild worsening of serum creatinine Lasix drip is being changed to 5 mg lower as is having significant urine output still hasn't been pedal edema does have some contraction alkalosis.patient 4 L apart from surgery 92% this is his baseline patient uses BiPAP when he sleeps. Constitutional: Denied any fatigue denied any fever. Cardio vascular: denied any chest pain, palpitations Gastrointestinal denied any nausea vomiting Pulmonary: Denied any shortness of breath cough Neurologic denied any new focal deficits 06/29/2020 Patient mentation is improved however he still looks a little drowsy, history And dyspneic with and little phlegm. Vitas looks stable and he is saturating 90 associated to oxygen via nasal cannula Patient is still needing BiPAP overnight. Remains on Lasix drip at 5 mL/h. And he is making good urine output about 50-100 milliliters per hour. Acute Patient was complaining of from bilateral leg pain, venous ultrasound showing no DVT Continue with Pradaxa, doxycycline and Lasix drip Patient may benefit from inpatient rehab upon discharge 06/30/2020 Patient still dyspneic with only some improvement, his little drowsy and with co ugh and phlegm. He still needs BiPAP overnight Creatinine is stable at 1.4 He continue on the cystic drip at 5 mL/h and Diamox was added twice daily today He is also on doxycycline and blood thinner Pradaxa CONSTITUTIONAL: No fever, no malaise, no fatigue. HEENT: No recent visual problems or hearing problems. Denied any sore throat. CARDIOVASCULAR: No orthopnea, PND, no palpitations, no syncope. PULMONARY: No shortness of breath, no cough, no hemoptysis. GASTROINTESTINAL: No diarrhea, no nausea, no vomiting, no abdominal pain. Normoactive bowel sounds. NEUROLOGICAL: No headaches, no weakness, no numbness. Active Medications Generic Name Dose Route Start Last Admin Trade Name Freq PRN Reason Stop Dose Admin Acetaminophen 650 mg 06/26/20 16:00 06/30/20 16:43 Tylenol Tab PO Not Given Q8HR NIKA Hydrocodone Bitart/Acetaminophen 1 each 06/29/20 09:00 06/29/20 09:29 [place] 5-325 PO 1 each Q6HR PRN Administration Pain Albuterol/Ipratropium 3 ml 06/26/20 12:00 06/30/20 19:35 Duoneb 0.5 Mg-3 Mg/3 Ml Soln INHALATION 3 ml RT-QID NIKA Administration Albuterol/Ipratropium 3 ml 06/26/20 11:28 Duoneb 0.5 Mg-3 Mg/3 Ml Soln INHALATION RT-Q4H PRN Shortness Of Breath Or Wheezing Allopurinol 300 mg 06/27/20 09:00 06/30/20 09:05 Zyloprim PO 300 mg DAILY NIKA Administration Alprazolam 0.5 mg 06/28/20 09:38 06/29/20 16:59 Xanax PO 0.5 mg HS PRN Administration Anxiety Aspirin 81 mg 06/27/20 09:00 06/30/20 09:04 Aspirin PO 81 mg DAILY NIKA Administration Atorvastatin Calcium 10 mg 06/26/20 21:00 06/30/20 20:18 Lipitor PO 10 mg HS NIKA Administration Cyanocobalamin 500 mcg 06/26/20 21:00 06/30/20 20:18 Vitamin B-12 PO 500 mcg HS NIKA Administration Dabigatran 150 mg 06/26/20 21:00 06/30/20 20:18 Pradaxa PO 150 mg BID NIKA Administration Famotidine 20 mg 06/28/20 21:00 06/30/20 20:18 Pepcid PO 20 mg BID NIKA Administration Ferrous Sulfate 325 mg 06/27/20 12:00 06/30/20 12:50 Feosol PO 325 mg DAILY@1200 NIKA Administration Folic Acid 0.5 mg 06/26/20 21:00 06/30/20 20:20 Folic Acid PO 0.5 mg HS NIKA Administration Furosemide 100 mg/ Sodium 100 mls @ 5 mls/hr 06/26/20 15:00 06/30/20 20:19 Chloride IV 5 mg/hr .Q20H NIKA 5 mls/hr Administration 5 MG/HR Doxycycline Hyclate 100 mg/ 100 mls @ 100 mls/hr 06/26/20 21:00 06/30/20 20:19 Sodium Chloride IVPB 100 mls/hr Q12HR NIKA Administration Insulin Aspart 0 unit 06/27/20 17:30 06/30/20 20:54 Novolog SQ 1 unit ACHS NIKA Administration Protocol Lactulose 20 gm 06/26/20 13:33 Cephulac PO BID PRN Constipation Magnesium Hydroxide 2,400 mg 06/26/20 13:33 Milk Of Magnesia PO DAILY PRN Constipation Metoprolol Tartrate 50 mg 06/26/20 16:00 06/30/20 20:19 Lopressor PO 50 mg TID NIKA Administration Miscellaneous Information 1 each 06/29/20 06:40 Potassium Per Protocol MISCELLANE DAILY PRN Per Protocol Protocol Nystatin 1 applic 06/26/20 21:00 06/30/20 20:19 Mycostatin Cream TOPICAL 1 applic BID NIKA Administration Pantoprazole Sodium 40 mg 06/27/20 07:30 06/30/20 07:00 Protonix PO 40 mg [id number] NIKA Administration Pregabalin 100 mg 06/26/20 21:00 06/30/20 20:19 Lyrica PO 100 mg BID NIKA Administration Objective - Vital Signs Vital signs: Vital Signs Temp 98.4 F 06/30/20 08:00 Pulse 101 H 06/30/20 11:10 Resp 11 L 06/30/20 11:00 BP 90/80 06/28/20 10:00 Pulse Ox 91 L 06/30/20 11:00 Intake & Output 06/29/20 06/30/20 06/30/20 18:59 06:59 18:59 Intake Total 1235.75 923.083 412 Output Total 2125 1440 1125 Balance -889.25 -516.917 -713 Weight 199.35 kg Intake: IV 316 234 172 .9 kvo 120 130 40 Doxycycline 100 mg In 100 100 Sodium Chloride 0.9% 100 ml @ 100 mls/hr IVPB Q12HR NIKA Rx#:[id number] Furosemide 100 mg In 60 65 20 Sodium Chloride 0.9% 90 ml @ 5 MG/HR 5 mls/hr IV .Q20H NIKA Rx#:[id number] Pressure Bags 0.9 36 39 12 Intake, IV Titration 81.75 89.083 Amount Furosemide 100 mg In 81.75 89.083 Sodium Chloride 0.9% 90 ml @ 5 MG/HR 5 mls/hr IV .Q20H NIKA Rx#:[id number] Oral 838 600 240 Output: Urine 2125 1440 1125 Other: Voiding Method Indwelling Catheter Indwelling Catheter Indwelling Catheter ABP, PAP, CO, CI - Last Documented Arterial Blood Pressure 101/61 - Exam GENERAL: The patient is alert and oriented x3, not in any acute distress. Well developed, well nourished. HEENT: Pupils are round and equally reacting to light. EOMI. No scleral icterus. No conjunctival pallor. Normocephalic, atraumatic. No pharyngeal erythema. No thyromegaly. CARDIOVASCULAR: S1 and S2 present. No murmurs, rubs, or gallops. -PULMONARY: Chest is clear to auscultation, no crackles. Bilateral scattered wheezing ABDOMEN: Soft, nontender, nondistended, normoactive bowel sounds. No palpable organomegaly. MUSCULOSKELETAL: No joint swelling or deformity. -EXTREMITIES: No cyanosis, clubbing,. Bilateral pitting leg edema NEUROLOGICAL: Gross neurological examination did not reveal any focal deficits. SKIN: No rashes. no petechiae. - Labs CBC & Chem 7: 06/30/20 05:00 06/30/20 05:00 Labs: Abnormal Lab Results - Last 24 Hours (Table) 06/29/20 06/29/20 06/30/20 Range/Units 16:55 20:27 04:55 RBC (4.30-5.90) m/uL Hgb (13.0-17.5) gm/dL MCV (80.0-100.0) fL MCHC (31.0-37.0) g/dL RDW (11.5-15.5) % Plt Count (150-450) k/uL Lymphocytes # (1.0-4.8) k/uL ABG pH 7.31 L (7.35-7.45) ABG pCO2 93 H* (35-45) mmHg ABG pO2 78 L (83-108) mmHg ABG HCO3 46 H* (21-25) mmol/L ABG Total CO2 49 H (19-24) mmol/L Chloride (98-107) mmol/L Carbon Dioxide (22-30) mmol/L BUN (9-20) mg/dL Creatinine (0.66-1.25) mg/dL Glucose (74-99) mg/dL POC Glucose (mg/dL) 135 H 154 H (75-99) mg/dL 06/30/20 06/30/20 06/30/20 Range/Units 05:00 05:00 06:48 RBC 4.02 L (4.30-5.90) m/uL Hgb 12.0 L (13.0-17.5) gm/dL MCV 100.8 H (80.0-100.0) fL MCHC 29.6 L (31.0-37.0) g/dL RDW 16.6 H (11.5-15.5) % Plt Count 146 L (150-450) k/uL Lymphocytes # 0.8 L (1.0-4.8) k/uL ABG pH (7.35-7.45) ABG pCO2 (35-45) mmHg ABG pO2 (83-108) mmHg ABG HCO3 (21-25) mmol/L ABG Total CO2 (19-24) mmol/L Chloride 97 L (98-107) mmol/L Carbon Dioxide 45 H* (22-30) mmol/L BUN 59 H (9-20) mg/dL Creatinine 1.49 H (0.66-1.25) mg/dL Glucose 103 H (74-99) mg/dL POC Glucose (mg/dL) 131 H (75-99) mg/dL 06/30/20 Range/Units 11:56 RBC (4.30-5.90) m/uL Hgb (13.0-17.5) gm/dL MCV (80.0-100.0) fL MCHC (31.0-37.0) g/dL RDW (11.5-15.5) % Plt Count (150-450) k/uL Lymphocytes # (1.0-4.8) k/uL ABG pH (7.35-7.45) ABG pCO2 (35-45) mmHg ABG pO2 (83-108) mmHg ABG HCO3 (21-25) mmol/L ABG Total CO2 (19-24) mmol/L Chloride (98-107) mmol/L Carbon Dioxide (22-30) mmol/L BUN (9-20) mg/dL Creatinine (0.66-1.25) mg/dL Glucose (74-99) mg/dL POC Glucose (mg/dL) 121 H (75-99) mg/dL Microbiology - Last 24 Hours (Table) 06/26/20 10:05 Blood Culture - Preliminary Blood No Growth after 96 hours Assessment and Plan Assessment: -acute on chronic hypercapnic respiratory failure: Secondary to obesity hypoventilation syndrome with bronchitis that may be some COPD exacerbation patient will be continued on doxycycline and the steroids for now -congestive heart failure chronic diastolic dysfunction with possible mild acute exacerbationpatient was started on Lasix drip and patient has improvement in kidney function after Lasix -contraction alkalosis -moderate pulmonary hypertension -Morbid obesity -COPD with acute exacerbation -bilateral chronic venous stasis -Chronic kidney disease stage III baseline creatinine of around 1.8 , patient had acute renal failure secondary to prerenal azotemia from heart failure improved with Lasix. -Respiratory acidosis secondary to assessment #1improved now -chronic A. fib on anticoagulation which will be resumed -Hyperlipidemia -Hypertension
[2020-07-01] MEDS: ALPRAZolam 0.5 MG TAB PO PRN ×2 (00:37→21:56)
[2020-07-01] MEDS: ACETAMINOPHEN TAB 325 MG TAB PO SCH ×3 (00:37→17:12)
[2020-07-01 05:20] LABS: ABG Base Excess 21.6 mmol/L; ABG Oxygen Saturation 94.5 % (94-97); ABG PH 7.35 (7.35-7.45); ABG PO2 73 mmHg (83-108); ABG TCO2 50 mmol/L (19-24); Allen Test Performed? Yes
[2020-07-01 05:24] LABS: ABG PCO2 86 mmHg (35-45)
[2020-07-01 05:25] LABS: ABG HCO3 47 mmol/L (21-25)
[2020-07-01 06:07] LABS: Anisocytosis Slight; Basophils % (A) 0 %; Eosinophils # (A) 0.4 k/uL (0-0.7); Eosinophils % (A) 8 %; HCT 39.6 % (39.0-53.0); HGB 11.7 gm/dL (13.0-17.5); Hypochromasia Marked; Lymphocytes # (A) 0.8 k/uL (1.0-4.8); Lymphocytes % (A) 15 %; MCH 30.3 pg (25.0-35.0); MCHC 29.7 g/dL (31.0-37.0); MCV 102.1 fL (80.0-100.0); Macrocytosis Slight; Monocytes # (A) 0.4 k/uL (0-1.0); Monocytes % (A) 7 %; Neutrophils # (A) 3.5 k/uL (1.3-7.7); Neutrophils % (A) 68 %; Platelet Count 145 k/uL (150-450); RBC 3.88 m/uL (4.30-5.90); RDW 16.4 % (11.5-15.5); WBC 5.2 k/uL (3.8-10.6)
[2020-07-01 06:12] LABS: Calcium 9.4 mg/dL (8.4-10.2); Potassium 4.1 mmol/L (3.5-5.1)
[2020-07-01] MEDS: INSULIN ASPART (NovoLOG) 100 UNIT/ML VIAL SQ SCH ×4 (06:42→20:40)
[2020-07-01 07:09] LABS: ABG HCO3 45 mmol/L (21-25); ABG PCO2 95 mmHg (35-45)
[2020-07-01 07:13] LABS: ABG PCO2 93 mmHg (35-45)
--- NOTE | 2020-07-01 07:58 | XR ---
EXAMINATION TYPE: XR chest 1V portable DATE OF EXAM: 07/01/2020 COMPARISON: Prior chest x-ray 06/30/2020 HISTORY: Abnormal chest x-ray, follow-up TECHNIQUE: frontal view of the chest is obtained on 2 images. FINDINGS: Patient is rotated. Heart remains enlarged. There is no evident pneumothorax. Central vasc ularity appears prominently. There are overlying cardiac leads. Bibasilar increased attenuation is no howard. Nodularity is present in the left mid lung. Interstitium appears increased. IMPRESSION: Correlate for pulmonary venous hypertension and interstitial edema. There may be basilar effusions, atelectasis, correlate to exclude pneumonia. Indeterminate nodularity within the left jesús g. Follow-up recommended.
[2020-07-01] MEDS: IPRATROPIUM-ALBUTEROL 3 ML NEB INHALATION SCH ×4 (08:09→20:29)
[2020-07-01] MEDS: DABIGATRAN 150 MG CAP PO SCH ×2 (08:18→20:29)
[2020-07-01] MEDS: METOPROLOL TARTRATE 50 MG TAB PO SCH ×3 (08:18→21:56)
[2020-07-01] MEDS: ASPIRIN 81 MG PO SCH (08:18)
[2020-07-01] MEDS: FAMOTIDINE 20 MG TAB PO SCH ×2 (08:18→20:30)
[2020-07-01] MEDS: PREGABALIN 100 MG CAP PO SCH ×2 (08:18→20:29)
[2020-07-01] MEDS: allopurinoL 300 MG TAB PO SCH (08:19)
[2020-07-01] MEDS: PANTOPRAZOLE 40 MG TABLET PO SCH (08:19)
[2020-07-01] MEDS: DOXYCYCLINE 100 MG in SODIUM CHLORIDE 0.9% 100 ML IVPB SCH ×2 (08:19→20:30)
[2020-07-01] MEDS: NYSTATIN 100,000UNIT/GM CREAM 30 GM TUBE TOPICAL SCH ×2 (09:33→20:30)
[2020-07-01 11:54] LABS: Glucose,Whole Blood 105 mg/dL (75-99)
[2020-07-01] MEDS: FERROUS SULFATE 325 MG TAB PO SCH (11:55)
--- NOTE | 2020-07-01 12:55 | P.PN ---
Subjective Progress Note Date: 07/01/20 Principal diagnosis: Acute on chronic hypercapnic and hypoxic respiratory failure secondary to acute exacerbation of COPD with obstructive sleep apnea syndrome and obesity/hypovent ilation syndrome. This is a 59-year-old male patient was morbidly obese and carries a BMI 56.7. He also has chronic hypoxic and hypercapnic respiratory failure, obstructive sleep apnea, obesity hypoventilation syndrome possible COPD. Other comorbidities include previous bariatric surgery, diabetes mellitus, hypertension and hyperlipidemia and addition to chronic congestion heart failure, chronic atrial fibrillation and chronic kidney disease.. He does hospitalization was in August 2019. At that time the patient came in with massive fluid overload. His blood gases showed an acute on top of chronic hypercapnic respiratory failure and administered acidosis. He was offered BiPAP therapy. He gradually improved and was discharged home on 2 L of oxygen by nasal cannula noninvasive positive pressure ventilation in addition to his noninvasive positive pressure ventilator. The patient was brought into the emergency department because of worsening shortness of breath and diminished level of consciousness. He was very difficult to keep him arouse and he was falling asleep repetitively. In the emergency department, blood gases was done and the patient was found to have an acute on top of chronic respiratory acidosis with a pH of 7.27 and a pCO2 of 88 and pO2 of 76. This was on FiO2 of 36%. Currently the patient in the BiPAP at a pressure of 12/5. He remains somewhat lethargic yet more arousable compared to earlier. His creatinine is 1.5 with a mean of 59. The hemoglobin is at 11.4. The chest x-ray shows evidence of cardiomegaly along with scattered senescent parenchymal changes and some elevation of the right hemidiaphragm. There is also increased pulmonary vessel markings. The patient's lactic acid level is at 0.7. ProBNP level is 4170 and his serum bicarb is at 39. He is afebrile. His cardiac rhythm is atrial fibrillation with a rate of 106 without any acute ischemic changes. There is an incomplete left bundle branch block pattern. On 06/27/2020, the patient is much improved compared to yesterday. He got transferred to the intensive care unit as the patient was quite obtunded and lethargic and he was in hypercapnic the story failure and CO2 narcosis. Based on this, the patient was started on Lasix drip at 5 mg an hour. He has made excellent urine output overnight and the patient is a negative fluid balance of at least 2 L over the past 24 hours. He was also supported with a BiPAP and he was receiving BiPAP at a pressure of 12/5 cm of water and FiO2 of 40%. A repeat blood gases from today showed a pH of 7.38 with a pCO2 of 64 and pO2 of 76. Awake and alert and following commands and answering questions. The serum bicarb currently is at 36. BUN is a 56 a creatinine of 1.5. Lasix drip is at 5 mg an hour. No other significant issues. Following commands and answering questions. 2019, the patient is being seen for a follow-up. The patient is doing well and has no specific complaints. No significant alteration in his mental status. The patient is currently on 4 L of oxygen by nasal cannula. Blood gases from this morning while on nasal cannula showed a pH of 7.35 with a pCO2 of 80 and pO2 of 98. The patient is a negative fluid balance while being on Lasix at 10 mg an hour. Menstrual balance is -1.4 L. Overnight, he was kept on BiPAP at a pressure of 12/5 with an FiO2 of 40%. He remains in atrial fibrillation at the rate of 108. No fever. No chills. No significant worsening in her renal function and the creatinine is stable at 1.6 with a BUN of 60. Serum bicarb is 41. Lower extremity edema is also improving. The wounds in lower extremities have been appropriately dressed. 06/29/2020, the patient remains on Lasix drip at 5 mg an hour. Fluid balance is negative more than 2 L over the past 24 hours. He is showing improvement in the fluid balance and lower extremity edema. Nevertheless, he continues to have significant amount of edema in all 4 extremities. His morning blood gases while on the BiPAP showed a pH of 7.28 with a pCO2 of 77 and pO2 of 95. Cellulitis is also improving in lower extremities. He is currently off the BiPAP. Overnight, he was kept on a BiPAP pressure of 12/5 cm of water and FiO2 of 40%. Currently is on 2 L of oxygen by nasal cannula. His cardiac rhythm is atrial fibrillation. The patient remains on Pradaxa for long-term anticoagulation. Repeat blood gases was done while on 4 L of oxygen by nasal cannula showed a pH of 7.31 with a pCO2 of 91 and pO2 of 72. Serum bicarb is at 37. No other significant events overnight. He is tolerating his diet. No active mentation. 06/30/2020, the patient is being seen for a follow-up is doing well. Remains in a negative fluid balance of another 2 L over the past 24 hours. His urine upper is in order of 200 mL an hour and the patient is on Lasix drip at family grams an hour. The patient's blood gas today showed a pH of 7.31 with a pCO2 of 93 and pO2 78. Serum bicarb is on the rise and the patient would benefit from Diamox. Overnight, he is using BiPAP at a pressure of 12/5 cm of water and FiO2 of 40%. During the days on feeds of oxygen by nasal cannula. Cardiac rhythm is sinus and the patient is anticoagulated. Awake and alert and there is no signs of any CO2 narcosis. Patient was reevaluated today on 07/01/20, remains in the ICU, intermittently on BiPAP with IPAP of 12 and EPAP of 5, and on FiO2 of 40%. Presently on 3 L nasal cannula. Patient remains on Lasix drip at 5 mg per hour. Excellent urine output and the response to the IV Lasix. He is in atrial fibrillation with rate controlled at 86. Chest x-ray continues to show evidence of pulmonary venous hypertension and interstitial edema with bibasilar effusions and atelectasis. Clinically the patient is feeling much better compared to how he felt on presentation. His mental status is significantly improved, he is alert and oriented 3. And not lethargic anymore. ABG today showed a pO2 of 73 pCO2 of 86 pH of 7.35. Basic metabolic profile showed a bicarb of 48 BUN is 52 creatinine is 1.56. Hence may consider discontinuing IV Lasix and switched to oral Lasix. CBC is relatively unremarkable. Objective - Vital Signs Vital signs: Vital Signs Temp 97.9 F 07/01/20 08:00 Pulse 82 07/01/20 11:33 Resp 22 07/01/20 11:37 BP 90/80 06/28/20 10:00 Pulse Ox 90 L 07/01/20 11:00 Intake & Output 06/30/20 07/01/20 07/01/20 18:59 06:59 18:59 Intake Total 520 495.5 640 Output Total 1735 1560 1200 Balance -1215 -1064.5 -560 Weight 199.35 kg 195.5 kg Intake: IV 280 158 160 .9 kvo 100 110 30 Doxycycline 100 mg In 100 100 Sodium Chloride 0.9% 100 ml @ 100 mls/hr IVPB Q12HR NIKA Rx#:[id number] Furosemide 100 mg In 50 15 15 Sodium Chloride 0.9% 90 ml @ 5 MG/HR 5 mls/hr IV .Q20H NIKA Rx#:[id number] Pressure Bags 0.9 30 33 15 Intake, IV Titration 97.5 Amount Furosemide 100 mg In 97.5 Sodium Chloride 0.9% 90 ml @ 5 MG/HR 5 mls/hr IV .Q20H NIKA Rx#:[id number] Oral 240 480 Tube Feeding 240 Output: Urine 1735 1560 1200 Other: Voiding Method Indwelling Catheter Indwelling Catheter Indwelling Catheter ABP, PAP, CO, CI - Last Documented Arterial Blood Pressure 103/62 - Exam Physical Exam: Revealed a morbidly obese white male, on 3 L nasal cannula, in no distress. Head: Atraumatic, normocephalic. HEENT:[Neck is supple.] [No neck masses.] [No thyromegaly.] [No JVD.]EOMI, no neck masses, no JVD. Chest: [Symmetrical chest expansion crackles at the bases no rhonchi and no wheezes.] Cardiac Exam: Irregular irregular rhythm. [Normal S1 and S2, no S3 gallop, no murmur.] Abdomen: Obese, [Soft, nontender, no megaly, no rebound, no guarding, normal bowel sounds.] Extremities: [No clubbing, 2+ bipedal edema. no cyanosis.] Good pulses bilaterally. Skin: Significant erythema and skin laceration involving the lower extremity above the ankle extending anteriorly over the right lower extremity and a large open wound anteriorly without evidence of any active drainage or purulent material. Neurological Exam: [No focal neurologic deficit.] Alert and oriented 3. Psychiatric: Normal mood, affect and normal mental status examination. - Labs CBC & Chem 7: 07/01/20 04:45 07/01/20 04:45 Labs: Abnormal Lab Results - Last 24 Hours (Table) 06/29/20 06/30/20 06/30/20 Range/Units 04:34 04:55 17:14 RBC (4.30-5.90) m/uL Hgb (13.0-17.5) gm/dL MCV (80.0-100.0) fL MCHC (31.0-37.0) g/dL RDW (11.5-15.5) % Plt Count (150-450) k/uL Lymphocytes # (1.0-4.8) k/uL ABG pCO2 95 H* 93 H* (35-45) mmHg ABG pO2 (83-108) mmHg ABG HCO3 45 H* (21-25) mmol/L ABG Total CO2 (19-24) mmol/L Chloride (98-107) mmol/L Carbon Dioxide (22-30) mmol/L BUN (9-20) mg/dL Creatinine (0.66-1.25) mg/dL Glucose (74-99) mg/dL POC Glucose (mg/dL) 136 H (75-99) mg/dL 06/30/20 07/01/20 07/01/20 Range/Units 20:52 04:45 04:45 RBC 3.88 L (4.30-5.90) m/uL Hgb 11.7 L (13.0-17.5) gm/dL MCV 102.1 H (80.0-100.0) fL MCHC 29.7 L (31.0-37.0) g/dL RDW 16.4 H (11.5-15.5) % Plt Count 145 L (150-450) k/uL Lymphocytes # 0.8 L (1.0-4.8) k/uL ABG pCO2 (35-45) mmHg ABG pO2 (83-108) mmHg ABG HCO3 (21-25) mmol/L ABG Total CO2 (19-24) mmol/L Chloride 95 L (98-107) mmol/L Carbon Dioxide 48 H* (22-30) mmol/L BUN 52 H (9-20) mg/dL Creatinine 1.56 H (0.66-1.25) mg/dL Glucose 106 H (74-99) mg/dL POC Glucose (mg/dL) 147 H (75-99) mg/dL 07/01/20 07/01/20 Range/Units 05:18 11:52 RBC (4.30-5.90) m/uL Hgb (13.0-17.5) gm/dL MCV (80.0-100.0) fL MCHC (31.0-37.0) g/dL RDW (11.5-15.5) % Plt Count (150-450) k/uL Lymphocytes # (1.0-4.8) k/uL ABG pCO2 86 H* (35-45) mmHg ABG pO2 73 L (83-108) mmHg ABG HCO3 47 H* (21-25) mmol/L ABG Total CO2 50 H (19-24) mmol/L Chloride (98-107) mmol/L Carbon Dioxide (22-30) mmol/L BUN (9-20) mg/dL Creatinine (0.66-1.25) mg/dL Glucose (74-99) mg/dL POC Glucose (mg/dL) 105 H (75-99) mg/dL Microbiology - Last 24 Hours (Table) 06/26/20 10:05 Blood Culture - Preliminary Blood No Growth after 120 hours Assessment and Plan Assessment: Impression: Acute on chronic hypoxic and hypercapnic respiratory failure with altered mental status secondary to CO2 narcosis this is mostly secondary to obesity/hypoventilation syndrome. Active sleep apnea syndrome. And underlying COPD with acute exacerbation. Obstructive sleep apnea with obesity/hypoventilation syndrome Chronic cor pulmonale and pulmonary hypertension Morbid obesity and previous bariatric surgery. Chronic atrial fibrillation. Benign essential hypertension. Chronic kidney disease stage III Chronic venous stasis of lower extremities with chronic ulcerations of right lower extremity Type 2 diabetes. Recommendation: Continue BiPAP intermittently, alternate with nasal cannula at 2 L/m Continue Lasix however could be switched to oral instead of IV drip Lasix. Continue to monitor renal profile. Continue diuretics and bronchodilators. Continue wound care of lower extremity. Consider transferring the patient out of the ICU to a regular medical floor/remote telemetry. We'll continue to follow closely. Long-term prognosis remains poor and guarded. Time with Patient: Less than 30
--- NOTE | 2020-07-01 16:41 | PN ---
PROGRESS NOTE Patient is seen for followup for acute kidney injury and volume overload. He has been maintained on Lasix drip. However, his metabolic alkalosis is slightly worse today with a slight increase in the creatinine as well. Therefore, he will be switched over to IV push Lasix. Overall, patient's volume status has improved. His weight continues to decrease. PHYSICAL EXAMINATION: Patient is comfortable. Blood pressure 103/62, heart rate 80 per minute, he is afebrile. Examination of the heart S1, S2. Examination of the lungs, decreased breath sounds bases. Abdomen is soft. Morbidly obese. Examination lower extremities shows bilateral chronic skin changes. Bilateral edema seems to be slowly improving. LABS: Show sodium 142, potassium 4.1, chloride 95, CO2 is 48, BUN 52, creatinine 1.56, hemoglobin 11.7 g/dL. ASSESSMENT: 1. Acute kidney injury cardiorenal, serum creatinine slightly higher today. Will discontinue the Lasix drip and switch to IV push Lasix. 2. Severe volume overload, currently improving. 3. Metabolic alkalosis secondary to diuresis. I will discontinue the Lasix drip and switch to IV push Lasix. If metabolic alkalosis is worse tomorrow, I will add Diamox. 4. Chronic kidney disease, stage 3, baseline creatinine 1.5 mg/dL secondary to nephrosclerosis. 5. Acute on chronic diastolic congestive heart failure with moderate tricuspid regurg and pulmonary hypertension. PLAN: DC Lasix drip, switch to IV push Lasix. Add Diamox tomorrow if metabolic alkalosis is worse. MMODL / IJN: [id number] /
[2020-07-01 16:48] LABS: Glucose,Whole Blood 185 mg/dL (75-99)
--- NOTE | 2020-07-01 19:35 | P.PN ---
Subjective From records 59-year-old male came in with complaints of shortness of breath excessively drowsy patient is able to provide me history with easily goes intosleep. Because of which I am asked for from her ABGs and ABGs were ordered and the ABGs are showing mild the respiratory acidosis with a pCO2 of around 90. Patient is morbidly obese does have a obesity hypoventilation syndrome and sleep apnea. Patient does have history of COPD as well as chronic diastolic dysfunction. Patient's chest x-ray did not show any pneumonic infiltrate patient was comparing of cough with greenish sputum production. Patient does have extensive bilateral pedal edema probably mostly due to chronic venous stasis rather than heart failure itself I'm unable to assess JVD, BNP is around 4170. Patient uses anywhere between 4-5 L of oxygen at home. 06/28/2020 Patient respiratory acidosis and hypercapnia improved with BiPAP patient was switched to 6 L still using BiPAP and as-needed basis when he sleeps. Patient apparently will require noninvasive ventilationeven after discharge.patient is much more awake much less sleepy today. 06/29/2020 patient remains on the IV Lasix drip mild worsening of serum creatinine Lasix drip is being changed to 5 mg lower as is having significant urine output still hasn't been pedal edema does have some contraction alkalosis.patient 4 L apart from surgery 92% this is his baseline patient uses BiPAP when he sleeps. Constitutional: Denied any fatigue denied any fever. Cardio vascular: denied any chest pain, palpitations Gastrointestinal denied any nausea vomiting Pulmonary: Denied any shortness of breath cough Neurologic denied any new focal deficits 06/29/2020 Patient mentation is improved however he still looks a little drowsy, history And dyspneic with and little phlegm. Vitas looks stable and he is saturating 90 associated to oxygen via nasal cannula Patient is still needing BiPAP overnight. Remains on Lasix drip at 5 mL/h. And he is making good urine output about 50-100 milliliters per hour. Acute Patient was complaining of from bilateral leg pain, venous ultrasound showing no DVT Continue with Pradaxa, doxycycline and Lasix drip Patient may benefit from inpatient rehab upon discharge 06/30/2020 Patient still dyspneic with only some improvement, his little drowsy and with co ugh and phlegm. He still needs BiPAP overnight Creatinine is stable at 1.4 He continue on the Lasix drip at 5 mL/h and Diamox was added twice daily today He is also on doxycycline and blood thinner Pradaxa 07/01/2020 Patient is awake and alert, he feels his breathing is improving today. He still needs breathing treatment. History of the@[id number], rest of vitals are stable, he is saturating 90-94% on 2-3 L of oxygen via nasal cannula. ABG today showed normal pH 7.3 but high pCO2 at 86 with low pO2 at 73 and bicarb of 47. CBC is unremarkable, BMP showing backup high at 48 and creatinine 1.5, similar to yesterday chest x-ray: Pulmonary venous hypertension and interstitial edema. Correlate to exclude pneumonia. Indeterminant nodularity within the left lung per radiologist ,Pulmonary team on the case His Lasix drip is a switched to IV Lasix 60 mg twice a day, besides IV doxycycline and Pradaxa CONSTITUTIONAL: No fever, no malaise, no fatigue. HEENT: No recent visual problems or hearing problems. Denied any sore throat. CARDIOVASCULAR: No orthopnea, PND, no palpitations, no syncope. PULMONARY: No shortness of breath, no cough, no hemoptysis. GASTROINTESTINAL: No diarrhea, no nausea, no vomiting, no abdominal pain. Normoactive bowel sounds. NEUROLOGICAL: No headaches, no weakness, no numbness. Active Medications Generic Name Dose Route Start Last Admin Trade Name Freq PRN Reason Stop Dose Admin Acetaminophen 650 mg 06/26/20 16:00 07/01/20 08:18 Tylenol Tab PO 650 mg Q8HR NIKA Administration Hydrocodone Bitart/Acetaminophen 1 each 06/29/20 09:00 06/29/20 09:29 [place] 5-325 PO 1 each Q6HR PRN Administration Pain Albuterol/Ipratropium 3 ml 06/26/20 12:00 07/01/20 11:23 Duoneb 0.5 Mg-3 Mg/3 Ml Soln INHALATION 3 ml RT-QID NIKA Administration Albuterol/Ipratropium 3 ml 06/26/20 11:28 Duoneb 0.5 Mg-3 Mg/3 Ml Soln INHALATION RT-Q4H PRN Shortness Of Breath Or Wheezing Allopurinol 300 mg 06/27/20 09:00 07/01/20 08:19 Zyloprim PO 300 mg DAILY NIKA Administration Alprazolam 0.5 mg 06/28/20 09:38 07/01/20 00:37 Xanax PO 0.5 mg HS PRN Administration Anxiety Aspirin 81 mg 06/27/20 09:00 07/01/20 08:18 Aspirin PO 81 mg DAILY NIKA Administration Atorvastatin Calcium 10 mg 06/26/20 21:00 06/30/20 20:18 Lipitor PO 10 mg HS [facility] Administration Cyanocobalamin 500 mcg 06/26/20 21:00 06/30/20 20:18 Vitamin B-12 PO 500 mcg HS NIKA Administration Dabigatran 150 mg 06/26/20 21:00 07/01/20 08:18 Pradaxa PO 150 mg BID [facility] Administration Famotidine 20 mg 06/28/20 21:00 07/01/20 08:18 Pepcid PO 20 mg BID NIKA Administration Ferrous Sulfate 325 mg 06/27/20 12:00 07/01/20 11:55 Feosol PO 325 mg DAILY@1200 [facility] Administration Folic Acid 0.5 mg 06/26/20 21:00 06/30/20 20:20 Folic Acid PO 0.5 mg HS NIKA Administration Furosemide 60 mg 07/01/20 21:00 Lasix IV Q12HR [facility] Doxycycline Hyclate 100 mg/ 100 mls @ 100 mls/hr 06/26/20 21:00 07/01/20 08:19 Sodium Chloride IVPB 100 mls/hr Q12HR [facility] Administration Insulin Aspart 0 unit 06/27/20 17:30 07/01/20 06:42 Novolog SQ Not Given ACHS [facility] Protocol Lactulose 20 gm 06/26/20 13:33 Cephulac PO BID PRN Constipation Magnesium Hydroxide 2,400 mg 06/26/20 13:33 Milk Of Magnesia PO DAILY PRN Constipation Metoprolol Tartrate 50 mg 06/26/20 16:00 07/01/20 08:18 Lopressor PO 50 mg TID [facility] Administration Miscellaneous Information 1 each 06/29/20 06:40 Potassium Per Protocol MISCELLANE DAILY PRN Per Protocol Protocol Nystatin 1 applic 06/26/20 21:00 07/01/20 09:33 Mycostatin Cream TOPICAL 1 applic BID [facility] Administration Pantoprazole Sodium 40 mg 06/27/20 07:30 07/01/20 08:19 Protonix PO 40 mg AC-[id number] NIKA Administration Pregabalin 100 mg 06/26/20 21:00 07/01/20 08:18 Lyrica PO 100 mg BID NIKA Administration Objective - Vital Signs Vital signs: Vital Signs Temp 97.9 F 07/01/20 08:00 Pulse 82 07/01/20 11:33 Resp 22 07/01/20 11:37 BP 90/80 06/28/20 10:00 Pulse Ox 94 L 07/01/20 10:00 Intake & Output 06/30/20 07/01/20 07/01/20 18:59 06:59 18:59 Intake Total 520 495.5 632 Output Total 1735 1560 950 Balance -1215 -1064.5 -318 Weight 199.35 kg 195.5 kg Intake: IV 280 158 152 .9 kvo 100 110 25 Doxycycline 100 mg In 100 100 Sodium Chloride 0.9% 100 ml @ 100 mls/hr IVPB Q12HR NIKA Rx#:[id number] Furosemide 100 mg In 50 15 15 Sodium Chloride 0.9% 90 ml @ 5 MG/HR 5 mls/hr IV .Q20H NIKA Rx#:[id number] Pressure Bags 0.9 30 33 12 Intake, IV Titration 97.5 Amount Furosemide 100 mg In 97.5 Sodium Chloride 0.9% 90 ml @ 5 MG/HR 5 mls/hr IV .Q20H NIKA Rx#:[id number] Oral 240 480 Tube Feeding 240 Output: Urine 1735 1560 950 Other: Voiding Method Indwelling Catheter Indwelling Catheter Indwelling Catheter ABP, PAP, CO, CI - Last Documented Arterial Blood Pressure 102/51 - Exam GENERAL: The patient is alert and oriented x3, not in any acute distress. Well developed, well nourished. HEENT: Pupils are round and equally reacting to light. EOMI. No scleral icterus. No conjunctival pallor. Normocephalic, atraumatic. No pharyngeal erythema. No thyromegaly. CARDIOVASCULAR: S1 and S2 present. No murmurs, rubs, or gallops. -PULMONARY: Chest is clear to auscultation, no crackles. Bilateral scattered wheezing ABDOMEN: Soft, nontender, nondistended, normoactive bowel sounds. No palpable organomegaly. MUSCULOSKELETAL: No joint swelling or deformity. -EXTREMITIES: No cyanosis, clubbing,. Bilateral pitting leg edema NEUROLOGICAL: Gross neurological examination did not reveal any focal deficits. SKIN: No rashes. no petechiae. - Labs CBC & Chem 7: 07/01/20 04:45 07/01/20 04:45 Labs: Abnormal Lab Results - Last 24 Hours (Table) 06/29/20 06/30/20 06/30/20 Range/Units 04:34 04:55 11:56 RBC (4.30-5.90) m/uL Hgb (13.0-17.5) gm/dL MCV (80.0-100.0) fL MCHC (31.0-37.0) g/dL RDW (11.5-15.5) % Plt Count (150-450) k/uL Lymphocytes # (1.0-4.8) k/uL ABG pCO2 95 H* 93 H* (35-45) mmHg ABG pO2 (83-108) mmHg ABG HCO3 45 H* (21-25) mmol/L ABG Total CO2 (19-24) mmol/L Chloride (98-107) mmol/L Carbon Dioxide (22-30) mmol/L BUN (9-20) mg/dL Creatinine (0.66-1.25) mg/dL Glucose (74-99) mg/dL POC Glucose (mg/dL) 121 H (75-99) mg/dL 06/30/20 06/30/20 07/01/20 Range/Units 17:14 20:52 04:45 RBC 3.88 L (4.30-5.90) m/uL Hgb 11.7 L (13.0-17.5) gm/dL MCV 102.1 H (80.0-100.0) fL MCHC 29.7 L (31.0-37.0) g/dL RDW 16.4 H (11.5-15.5) % Plt Count 145 L (150-450) k/uL Lymphocytes # 0.8 L (1.0-4.8) k/uL ABG pCO2 (35-45) mmHg ABG pO2 (83-108) mmHg ABG HCO3 (21-25) mmol/L ABG Total CO2 (19-24) mmol/L Chloride (98-107) mmol/L Carbon Dioxide (22-30) mmol/L BUN (9-20) mg/dL Creatinine (0.66-1.25) mg/dL Glucose (74-99) mg/dL POC Glucose (mg/dL) 136 H 147 H (75-99) mg/dL 07/01/20 07/01/20 Range/Units 04:45 05:18 RBC (4.30-5.90) m/uL Hgb (13.0-17.5) gm/dL MCV (80.0-100.0) fL MCHC (31.0-37.0) g/dL RDW (11.5-15.5) % Plt Count (150-450) k/uL Lymphocytes # (1.0-4.8) k/uL ABG pCO2 86 H* (35-45) mmHg ABG pO2 73 L (83-108) mmHg ABG HCO3 47 H* (21-25) mmol/L ABG Total CO2 50 H (19-24) mmol/L Chloride 95 L (98-107) mmol/L Carbon Dioxide 48 H* (22-30) mmol/L BUN 52 H (9-20) mg/dL Creatinine 1.56 H (0.66-1.25) mg/dL Glucose 106 H (74-99) mg/dL POC Glucose (mg/dL) (75-99) mg/dL Microbiology - Last 24 Hours (Table) 06/26/20 10:05 Blood Culture - Preliminary Blood No Growth after 96 hours Assessment and Plan Assessment: -acute on chronic hypercapnic respiratory failure: Secondary to obesity hypoventilation syndrome with bronchitis that may be some COPD exacerbation patient will be continued on doxycycline and the steroids for now -congestive heart failure chronic diastolic dysfunction with possible mild acute exacerbationpatient was started on Lasix drip and patient has improvement in kidney function after Lasix -contraction alkalosis -moderate pulmonary hypertension -Morbid obesity -COPD with acute exacerbation -bilateral chronic venous stasis -Chronic kidney disease stage III baseline creatinine of around 1.8 , patient had acute renal failure secondary to prerenal azotemia from heart failure improved with Lasix. -Respiratory acidosis secondary to assessment #1improved now -chronic A. fib on anticoagulation which will be resumed -Hyperlipidemia -Hypertension
[2020-07-01] MEDS: FOLIC ACID 1 MG TAB PO SCH (20:30)
[2020-07-01] MEDS: FUROSEMIDE 10 MG/ML 10 ML VIAL IV SCH (20:30)
[2020-07-01] MEDS: CYANOCOBALAMIN 500 MCG TAB PO SCH (20:30)
[2020-07-01] MEDS: ATORVASTATIN 10 MG TAB PO SCH (20:30)
[2020-07-01 20:35] LABS: Glucose,Whole Blood 141 mg/dL (75-99)
[2020-07-02] MEDS: ACETAMINOPHEN TAB 325 MG TAB PO SCH ×4 (00:40→23:17)
[2020-07-02 05:45] LABS: Anisocytosis Slight; Basophils % (A) 1 %; Eosinophils # (A) 0.3 k/uL (0-0.7); Eosinophils % (A) 7 %; HCT 36.7 % (39.0-53.0); HGB 10.7 gm/dL (13.0-17.5); Hypochromasia Marked; Lymphocytes # (A) 0.7 k/uL (1.0-4.8); Lymphocytes % (A) 15 %; MCH 29.3 pg (25.0-35.0); MCHC 29.1 g/dL (31.0-37.0); MCV 100.6 fL (80.0-100.0); Macrocytosis Slight; Monocytes # (A) 0.3 k/uL (0-1.0); Monocytes % (A) 7 %; Neutrophils % (A) 67 %; Platelet Count 136 k/uL (150-450); RBC 3.65 m/uL (4.30-5.90); RDW 16.7 % (11.5-15.5); WBC 4.4 k/uL (3.8-10.6)
[2020-07-02 06:01] LABS: Glucose,Whole Blood 112 mg/dL (75-99)
[2020-07-02] MEDS: INSULIN ASPART (NovoLOG) 100 UNIT/ML VIAL SQ SCH ×4 (06:10→21:01)
[2020-07-02 06:13] LABS: Calcium 9.2 mg/dL (8.4-10.2); Potassium 4.1 mmol/L (3.5-5.1)
[2020-07-02] MEDS: PANTOPRAZOLE 40 MG TABLET PO SCH (06:34)
--- NOTE | 2020-07-02 07:38 | XR ---
EXAMINATION TYPE: XR chest 1V portable DATE OF EXAM: 07/02/2020 CLINICAL HISTORY: Shortness of breath TECHNIQUE: Portable semiupright view of the chest obtained COMPARISON: 07/01/2020 chest radiograph FINDINGS: Cardiomegaly, pulmonary vascular congestion, pulmonary edema, and small bilateral pleural effusions, overall similar to 07/01/2020. No pneumothorax. IMPRESSION: Cardiomegaly, pulmonary vascular congestion, edema, and small bilateral pleural effusions .
[2020-07-02] MEDS: IPRATROPIUM-ALBUTEROL 3 ML NEB INHALATION SCH ×5 (08:26→19:48)
[2020-07-02] MEDS: FAMOTIDINE 20 MG TAB PO SCH ×2 (09:57→20:57)
[2020-07-02] MEDS: DOXYCYCLINE 100 MG in SODIUM CHLORIDE 0.9% 100 ML IVPB SCH ×2 (09:57→21:06)
[2020-07-02] MEDS: allopurinoL 300 MG TAB PO SCH (09:57)
[2020-07-02] MEDS: ASPIRIN 81 MG PO SCH (09:57)
[2020-07-02] MEDS: PREGABALIN 100 MG CAP PO SCH ×2 (09:58→20:57)
[2020-07-02] MEDS: DABIGATRAN 150 MG CAP PO SCH ×2 (09:58→20:58)
[2020-07-02] MEDS: FUROSEMIDE 10 MG/ML 10 ML VIAL IV SCH ×2 (09:58→20:56)
[2020-07-02] MEDS: METOPROLOL TARTRATE 50 MG TAB PO SCH ×3 (09:58→20:57)
[2020-07-02] MEDS: FERROUS SULFATE 325 MG TAB PO SCH (09:58)
[2020-07-02] MEDS: NYSTATIN 100,000UNIT/GM CREAM 30 GM TUBE TOPICAL SCH ×2 (09:58→21:00)
--- NOTE | 2020-07-02 10:28 | P.PN ---
Subjective Patient is seen in follow-up for acute kidney injury on chronic kidney disease. Patient has chronic kidney disease stage III with baseline creatinine near 1.5. Renal function fairly stable. Currently maintained on IV Lasix. Edema gradually improving. No vomiting. Bicarb up to 49 today. Vital signs are stable. General: The patient appeared well nourished and normally developed. HEENT: Head exam is unremarkable. Neck is without jugular venous distension. LUNGS: Breath sounds decreased. HEART: Rate and Rhythm are regular. ABDOMEN: Soft, nontender. EXTREMITITES: 2+ edema. Chronic changes noted. Objective - Vital Signs Vital signs: Vital Signs Temp 98.2 F 07/02/20 08:00 Pulse 108 H 07/02/20 10:00 Resp 20 07/02/20 10:00 BP 90/80 06/28/20 10:00 Pulse Ox 95 07/02/20 10:00 Intake & Output 07/01/20 07/02/20 07/02/20 18:59 06:59 18:59 Intake Total 1176 351 32 Output Total 1725 2315 500 Balance -549 -0033 -717 Weight 194.047 kg Intake: IV 216 131 32 .9 kvo 65 95 20 Doxycycline 100 mg In 100 Sodium Chloride 0.9% 100 ml @ 100 mls/hr IVPB Q12HR NIKA Rx#:[id number] Furosemide 100 mg In 15 Sodium Chloride 0.9% 90 ml @ 5 MG/HR 5 mls/hr IV .Q20H NIKA Rx#:[id number] Pressure Bags 0.9 36 36 12 Intake, IV Titration 100 Amount Doxycycline 100 mg In 100 Sodium Chloride 0.9% 100 ml @ 100 mls/hr IVPB Q12HR NIKA Rx#:[id number] Oral 960 120 Output: Urine 1725 2315 500 Other: Voiding Method Indwelling Catheter Indwelling Catheter ABP, PAP, CO, CI - Last Documented Arterial Blood Pressure 139/78 - Labs CBC & Chem 7: 07/02/20 05:30 07/02/20 05:30 Labs: Abnormal Lab Results - Last 24 Hours (Table) 07/01/20 07/01/20 07/01/20 Range/Units 11:52 16:47 20:33 RBC (4.30-5.90) m/uL Hgb (13.0-17.5) gm/dL Hct (39.0-53.0) % MCV (80.0-100.0) fL MCHC (31.0-37.0) g/dL RDW (11.5-15.5) % Plt Count (150-450) k/uL Lymphocytes # (1.0-4.8) k/uL Chloride (98-107) mmol/L Carbon Dioxide (22-30) mmol/L BUN (9-20) mg/dL Creatinine (0.66-1.25) mg/dL Glucose (74-99) mg/dL POC Glucose (mg/dL) 105 H 185 H 141 H (75-99) mg/dL 07/02/20 07/02/20 07/02/20 Range/Units 05:30 05:30 06:00 RBC 3.65 L (4.30-5.90) m/uL Hgb 10.7 L (13.0-17.5) gm/dL Hct 36.7 L (39.0-53.0) % MCV 100.6 H (80.0-100.0) fL MCHC 29.1 L (31.0-37.0) g/dL RDW 16.7 H (11.5-15.5) % Plt Count 136 L (150-450) k/uL Lymphocytes # 0.7 L (1.0-4.8) k/uL Chloride 96 L (98-107) mmol/L Carbon Dioxide 49 H* (22-30) mmol/L BUN 52 H (9-20) mg/dL Creatinine 1.53 H (0.66-1.25) mg/dL Glucose 104 H (74-99) mg/dL POC Glucose (mg/dL) 112 H (75-99) mg/dL Microbiology - Last 24 Hours (Table) 06/26/20 10:05 Blood Culture - Preliminary Blood No Growth after 120 hours Assessment and Plan Plan: Assessment: 1. Acute kidney injury mostly prerenal secondary to cardiorenal syndrome. Creatinine was 1.8 on admission and is stable at 1.53 today. UA benign. 2. Chronic kidney disease stage III with baseline creatinine near 1.5. Etiologiy is nephrosclerosis. 3. Volume overload. 4. Acute on chronic diastolic CHF with moderate tricuspid regurgitation and pulmonary hypertension. 5. Acute on chronic hypercapnic respiratory failure. Additional metabolic alkalosis secondary to diuresis. Plan: Maintain IV Lasix 60 mg twice daily. Add Diamox 250 mg twice daily. Low-salt diet and 1500 mL fluid restriction. Repeat electrolytes in the morning.
--- NOTE | 2020-07-02 11:32 | P.PN ---
Subjective Progress Note Date: 07/02/20 Principal diagnosis: Acute on chronic hypercapnic and hypoxic respiratory failure secondary to acute exacerbation of COPD with obstructive sleep apnea syndrome and obesity/hypovent ilation syndrome. This is a 59-year-old male patient was morbidly obese and carries a BMI 56.7. He also has chronic hypoxic and hypercapnic respiratory failure, obstructive sleep apnea, obesity hypoventilation syndrome possible COPD. Other comorbidities include previous bariatric surgery, diabetes mellitus, hypertension and hyperlipidemia and addition to chronic congestion heart failure, chronic atrial fibrillation and chronic kidney disease.. He does hospitalization was in August 2019. At that time the patient came in with massive fluid overload. His blood gases showed an acute on top of chronic hypercapnic respiratory failure and administered acidosis. He was offered BiPAP therapy. He gradually improved and was discharged home on 2 L of oxygen by nasal cannula noninvasive positive pressure ventilation in addition to his noninvasive positive pressure ventilator. The patient was brought into the emergency department because of worsening shortness of breath and diminished level of consciousness. He was very difficult to keep him arouse and he was falling asleep repetitively. In the emergency department, blood gases was done and the patient was found to have an acute on top of chronic respiratory acidosis with a pH of 7.27 and a pCO2 of 88 and pO2 of 76. This was on FiO2 of 36%. Currently the patient in the BiPAP at a pressure of 12/5. He remains somewhat lethargic yet more arousable compared to earlier. His creatinine is 1.5 with a mean of 59. The hemoglobin is at 11.4. The chest x-ray shows evidence of cardiomegaly along with scattered senescent parenchymal changes and some elevation of the right hemidiaphragm. There is also increased pulmonary vessel markings. The patient's lactic acid level is at 0.7. ProBNP level is 4170 and his serum bicarb is at 39. He is afebrile. His cardiac rhythm is atrial fibrillation with a rate of 106 without any acute ischemic changes. There is an incomplete left bundle branch block pattern. On 06/27/2020, the patient is much improved compared to yesterday. He got transferred to the intensive care unit as the patient was quite obtunded and lethargic and he was in hypercapnic the story failure and CO2 narcosis. Based on this, the patient was started on Lasix drip at 5 mg an hour. He has made excellent urine output overnight and the patient is a negative fluid balance of at least 2 L over the past 24 hours. He was also supported with a BiPAP and he was receiving BiPAP at a pressure of 12/5 cm of water and FiO2 of 40%. A repeat blood gases from today showed a pH of 7.38 with a pCO2 of 64 and pO2 of 76. Awake and alert and following commands and answering questions. The serum bicarb currently is at 36. BUN is a 56 a creatinine of 1.5. Lasix drip is at 5 mg an hour. No other significant issues. Following commands and answering questions. 2019, the patient is being seen for a follow-up. The patient is doing well and has no specific complaints. No significant alteration in his mental status. The patient is currently on 4 L of oxygen by nasal cannula. Blood gases from this morning while on nasal cannula showed a pH of 7.35 with a pCO2 of 80 and pO2 of 98. The patient is a negative fluid balance while being on Lasix at 10 mg an hour. Menstrual balance is -1.4 L. Overnight, he was kept on BiPAP at a pressure of 12/5 with an FiO2 of 40%. He remains in atrial fibrillation at the rate of 108. No fever. No chills. No significant worsening in her renal function and the creatinine is stable at 1.6 with a BUN of 60. Serum bicarb is 41. Lower extremity edema is also improving. The wounds in lower extremities have been appropriately dressed. 06/29/2020, the patient remains on Lasix drip at 5 mg an hour. Fluid balance is negative more than 2 L over the past 24 hours. He is showing improvement in the fluid balance and lower extremity edema. Nevertheless, he continues to have significant amount of edema in all 4 extremities. His morning blood gases while on the BiPAP showed a pH of 7.28 with a pCO2 of 77 and pO2 of 95. Cellulitis is also improving in lower extremities. He is currently off the BiPAP. Overnight, he was kept on a BiPAP pressure of 12/5 cm of water and FiO2 of 40%. Currently is on 2 L of oxygen by nasal cannula. His cardiac rhythm is atrial fibrillation. The patient remains on Pradaxa for long-term anticoagulation. Repeat blood gases was done while on 4 L of oxygen by nasal cannula showed a pH of 7.31 with a pCO2 of 91 and pO2 of 72. Serum bicarb is at 37. No other significant events overnight. He is tolerating his diet. No active mentation. 06/30/2020, the patient is being seen for a follow-up is doing well. Remains in a negative fluid balance of another 2 L over the past 24 hours. His urine upper is in order of 200 mL an hour and the patient is on Lasix drip at family grams an hour. The patient's blood gas today showed a pH of 7.31 with a pCO2 of 93 and pO2 78. Serum bicarb is on the rise and the patient would benefit from Diamox. Overnight, he is using BiPAP at a pressure of 12/5 cm of water and FiO2 of 40%. During the days on feeds of oxygen by nasal cannula. Cardiac rhythm is sinus and the patient is anticoagulated. Awake and alert and there is no signs of any CO2 narcosis. Patient was reevaluated today on 07/01/20, remains in the ICU, intermittently on BiPAP with IPAP of 12 and EPAP of 5, and on FiO2 of 40%. Presently on 3 L nasal cannula. Patient remains on Lasix drip at 5 mg per hour. Excellent urine output and the response to the IV Lasix. He is in atrial fibrillation with rate controlled at 86. Chest x-ray continues to show evidence of pulmonary venous hypertension and interstitial edema with bibasilar effusions and atelectasis. Clinically the patient is feeling much better compared to how he felt on presentation. His mental status is significantly improved, he is alert and oriented 3. And not lethargic anymore. ABG today showed a pO2 of 73 pCO2 of 86 pH of 7.35. Basic metabolic profile showed a bicarb of 48 BUN is 52 creatinine is 1.56. Hence may consider discontinuing IV Lasix and switched to oral Lasix. CBC is relatively unremarkable. Patient was reevaluated today on 07/02/20, remains in the ICU as an overflow, patient is on BiPAP intermittently, presently on 3 L nasal cannula. His O2 saturation is 93%. And on BiPAP he goes on 12/5 and 40% FiO2. Patient remains on oral diuretics, 660 mg twice a day, continues to have abnormal chest x-ray showing mild congestive heart failure. Hence we'll continue Lasix. His IV fluid is at KVO. CBC is relatively normal electrolytes showed a bicarb of 49 BUN is 52 creatinine is 1.53, slightly improved compared to yesterday in spite of diuretics. Objective - Vital Signs Vital signs: Vital Signs Temp 98.2 F 07/02/20 08:00 Pulse 108 H 07/02/20 10:00 Resp 20 07/02/20 10:00 BP 90/80 06/28/20 10:00 Pulse Ox 95 07/02/20 10:00 Intake & Output 07/01/20 07/02/20 07/02/20 18:59 06:59 18:59 Intake Total 1176 351 32 Output Total 1725 2315 500 Balance -111 -1964 -468 Weight 194.047 kg Intake: IV 216 131 32 .9 kvo 65 95 20 Doxycycline 100 mg In 100 Sodium Chloride 0.9% 100 ml @ 100 mls/hr IVPB Q12HR [facility]A Rx#:[id number] Furosemide 100 mg In 15 Sodium Chloride 0.9% 90 ml @ 5 MG/HR 5 mls/hr IV .Q20H [facility] Rx#:[id number] Pressure Bags 0.9 36 36 12 Intake, IV Titration 100 Amount Doxycycline 100 mg In 100 Sodium Chloride 0.9% 100 ml @ 100 mls/hr IVPB Q12HR [facility] Rx#:[id number] Oral 960 120 Output: Urine 1725 2315 500 Other: Voiding Method Indwelling Catheter Indwelling Catheter ABP, PAP, CO, CI - Last Documented Arterial Blood Pressure 139/78 - Exam Physical Exam: Revealed a morbidly obese white male, on 3 L nasal cannula, in no distress. Head: Atraumatic, normocephalic. HEENT:[Neck is supple.] [No neck masses.] [No thyromegaly.] [No JVD.]EOMI, no neck masses, no JVD. Chest: [Symmetrical chest expansion crackles at the bases no rhonchi and no wheezes.] Cardiac Exam: Irregular irregular rhythm. [Normal S1 and S2, no S3 gallop, no murmur.] Abdomen: Obese, [Soft, nontender, no megaly, no rebound, no guarding, normal bowel sounds.] Extremities: [No clubbing, 2+ bipedal edema. no cyanosis.] Good pulses bilaterally. Skin: Significant erythema and skin laceration involving the lower extremity above the ankle extending anteriorly over the right lower extremity and a large open wound anteriorly without evidence of any active drainage or purulent material. Neurological Exam: [No focal neurologic deficit.] Alert and oriented 3. Psychiatric: Normal mood, affect and normal mental status examination. - Labs CBC & Chem 7: 07/02/20 05:30 07/02/20 05:30 Labs: Abnormal Lab Results - Last 24 Hours (Table) 07/01/20 07/01/20 07/01/20 Range/Units 11:52 16:47 20:33 RBC (4.30-5.90) m/uL Hgb (13.0-17.5) gm/dL Hct (39.0-53.0) % MCV (80.0-100.0) fL MCHC (31.0-37.0) g/dL RDW (11.5-15.5) % Plt Count (150-450) k/uL Lymphocytes # (1.0-4.8) k/uL Chloride (98-107) mmol/L Carbon Dioxide (22-30) mmol/L BUN (9-20) mg/dL Creatinine (0.66-1.25) mg/dL Glucose (74-99) mg/dL POC Glucose (mg/dL) 105 H 185 H 141 H (75-99) mg/dL 07/02/20 07/02/20 07/02/20 Range/Units 05:30 05:30 06:00 RBC 3.65 L (4.30-5.90) m/uL Hgb 10.7 L (13.0-17.5) gm/dL Hct 36.7 L (39.0-53.0) % MCV 100.6 H (80.0-100.0) fL MCHC 29.1 L (31.0-37.0) g/dL RDW 16.7 H (11.5-15.5) % Plt Count 136 L (150-450) k/uL Lymphocytes # 0.7 L (1.0-4.8) k/uL Chloride 96 L (98-107) mmol/L Carbon Dioxide 49 H* (22-30) mmol/L BUN 52 H (9-20) mg/dL Creatinine 1.53 H (0.66-1.25) mg/dL Glucose 104 H (74-99) mg/dL POC Glucose (mg/dL) 112 H (75-99) mg/dL Microbiology - Last 24 Hours (Table) 06/26/20 10:05 Blood Culture - Preliminary Blood No Growth after 120 hours Assessment and Plan Assessment: Impression: Acute on chronic hypoxic and hypercapnic respiratory failure with altered mental status secondary to CO2 narcosis this is mostly secondary to obesity/hypoventilation syndrome. Active sleep apnea syndrome. And underlying COPD with acute exacerbation. Chronic diastolic congestive heart failure is strongly suspected. Obstructive sleep apnea with obesity/hypoventilation syndrome Chronic cor pulmonale and pulmonary hypertension Morbid obesity and previous bariatric surgery. Chronic atrial fibrillation. Benign essential hypertension. Chronic kidney disease stage III Chronic venous stasis of lower extremities with chronic ulcerations of right lower extremity Type 2 diabetes. Recommendation: Continue BiPAP intermittently, alternate with nasal cannula at 2 L/m Continue Lasix as per nephrology on the case. Continue to monitor renal profile. Continue diuretics and bronchodilators. Continue wound care of lower extremity. Patient is presently overflow in the ICU. We'll continue to follow closely. Long-term prognosis remains poor and guarded. Time with Patient: Less than 30
[2020-07-02 11:46] LABS: Glucose,Whole Blood 145 mg/dL (75-99)
[2020-07-02] MEDS: HYDROcodone/APAP 5-325MG 1 EACH TAB PO PRN (14:11)
[2020-07-02 16:55] LABS: Glucose,Whole Blood 126 mg/dL (75-99)
--- NOTE | 2020-07-02 18:40 | P.PN ---
Subjective From records 59-year-old male came in with complaints of shortness of breath excessively drowsy patient is able to provide me history with easily goes intosleep. Because of which I am asked for from her ABGs and ABGs were ordered and the ABGs are showing mild the respiratory acidosis with a pCO2 of around 90. Patient is morbidly obese does have a obesity hypoventilation syndrome and sleep apnea. Patient does have history of COPD as well as chronic diastolic dysfunction. Patient's chest x-ray did not show any pneumonic infiltrate patient was comparing of cough with greenish sputum production. Patient does have extensive bilateral pedal edema probably mostly due to chronic venous stasis rather than heart failure itself I'm unable to assess JVD, BNP is around 4170. Patient uses anywhere between 4-5 L of oxygen at home. 06/28/2020 Patient respiratory acidosis and hypercapnia improved with BiPAP patient was switched to 6 L still using BiPAP and as-needed basis when he sleeps. Patient apparently will require noninvasive ventilationeven after discharge.patient is much more awake much less sleepy today. 06/29/2020 patient remains on the IV Lasix drip mild worsening of serum creatinine Lasix drip is being changed to 5 mg lower as is having significant urine output still hasn't been pedal edema does have some contraction alkalosis.patient 4 L apart from surgery 92% this is his baseline patient uses BiPAP when he sleeps. Constitutional: Denied any fatigue denied any fever. Cardio vascular: denied any chest pain, palpitations Gastrointestinal denied any nausea vomiting Pulmonary: Denied any shortness of breath cough Neurologic denied any new focal deficits 06/29/2020 Patient mentation is improved however he still looks a little drowsy, history And dyspneic with and little phlegm. Vitas looks stable and he is saturating 90 associated to oxygen via nasal cannula Patient is still needing BiPAP overnight. Remains on Lasix drip at 5 mL/h. And he is making good urine output about 50-100 milliliters per hour. Acute Patient was complaining of from bilateral leg pain, venous ultrasound showing no DVT Continue with Pradaxa, doxycycline and Lasix drip Patient may benefit from inpatient rehab upon discharge 06/30/2020 Patient still dyspneic with only some improvement, his little drowsy and with co ugh and phlegm. He still needs BiPAP overnight Creatinine is stable at 1.4 He continue on the Lasix drip at 5 mL/h and Diamox was added twice daily today He is also on doxycycline and blood thinner Pradaxa 07/01/2020 Patient is awake and alert, he feels his breathing is improving today. He still needs breathing treatment. History of the@2227, rest of vitals are stable, he is saturating 90-94% on 2-3 L of oxygen via nasal cannula. ABG today showed normal pH 7.3 but high pCO2 at 86 with low pO2 at 73 and bicarb of 47. CBC is unremarkable, BMP showing backup high at 48 and creatinine 1.5, similar to yesterday chest x-ray: Pulmonary venous hypertension and interstitial edema. Correlate to exclude pneumonia. Indeterminant nodularity within the left lung per radiologist ,Pulmonary team on the case His Lasix drip is a switched to IV Lasix 60 mg twice a day, besides IV doxycycline and Pradaxa 07/02/2020 Patient still in the ICU, his dyspnea is slowly feeling better, still having cough. And he still has 2+ leg swelling however on chest examination there is no basal crepitation but this is limited by his body habitus. He is still using BiPAP at night, however Lasix drip was switched to IV Lasix 60 twice a day and Diamox has been added today by nephrology team. His creatinine is stable at 1.5, pro-calcitonin is back to normal and patient may stop the doxycycline in 1-2 days. However his blood still showing alkalemia with carbon dioxide to 49 however. Yesterday was normal with no evidence of alkalosis. He still saturating 90s on 4 L oxygen via nasal cannula. CONSTITUTIONAL: No fever, no malaise, no fatigue. HEENT: No recent visual problems or hearing problems. Denied any sore throat. CARDIOVASCULAR: No orthopnea, PND, no palpitations, no syncope. PULMONARY: No shortness of breath, no cough, no hemoptysis. GASTROINTESTINAL: No diarrhea, no nausea, no vomiting, no abdominal pain. Normoactive bowel sounds. NEUROLOGICAL: No headaches, no weakness, no numbness. Active Medications Generic Name Dose Route Start Last Admin Trade Name Freq PRN Reason Stop Dose Admin Acetaminophen 650 mg 06/26/20 16:00 07/02/20 16:13 Tylenol Tab PO Not Given Q8HR NIKA Hydrocodone Bitart/Acetaminophen 1 each 06/29/20 09:00 07/02/20 14:11 [place] 5-325 PO 1 each Q6HR PRN Administration Pain Acetazolamide Sodium 250 mg 07/02/20 10:30 07/02/20 12:31 Diamox IV 250 mg Q12HR NIKA Administration Albuterol/Ipratropium 3 ml 06/26/20 12:00 07/02/20 16:25 Duoneb 0.5 Mg-3 Mg/3 Ml Soln INHALATION 3 ml RT-QID NIKA Administration Albuterol/Ipratropium 3 ml 06/26/20 11:28 Duoneb 0.5 Mg-3 Mg/3 Ml Soln INHALATION RT-Q4H PRN Shortness Of Breath Or Wheezing Allopurinol 300 mg 06/27/20 09:00 07/02/20 09:57 Zyloprim PO 300 mg DAILY NIKA Administration Alprazolam 0.5 mg 06/28/20 09:38 07/01/20 21:56 Xanax PO 0.5 mg HS PRN Administration Anxiety Aspirin 81 mg 06/27/20 09:00 07/02/20 09:57 Aspirin PO 81 mg DAILY NIKA Administration Atorvastatin Calcium 10 mg 06/26/20 21:00 07/01/20 20:30 Lipitor PO 10 mg HS NIKA Administration Cyanocobalamin 500 mcg 06/26/20 21:00 07/01/20 20:30 Vitamin B-12 PO 500 mcg HS NIKA Administration Dabigatran 150 mg 06/26/20 21:00 07/02/20 09:58 Pradaxa PO 150 mg BID NIKA Administration Famotidine 20 mg 06/28/20 21:00 07/02/20 09:57 Pepcid PO 20 mg BID NIKA Administration Ferrous Sulfate 325 mg 06/27/20 12:00 07/02/20 09:58 Feosol PO 325 mg DAILY@1200 NIKA Administration Folic Acid 0.5 mg 06/26/20 21:00 07/01/20 20:30 Folic Acid PO 0.5 mg HS NIKA Administration Furosemide 60 mg 07/01/20 21:00 07/02/20 09:58 Lasix IV 60 mg Q12HR NIKA Administration Doxycycline Hyclate 100 mg/ 100 mls @ 100 mls/hr 06/26/20 21:00 07/02/20 09:57 Sodium Chloride IVPB 100 mls/hr Q12HR NIKA Administration Insulin Aspart 0 unit 06/27/20 17:30 07/02/20 16:55 Novolog SQ Not Given ACHS [facility] Protocol Lactulose 20 gm 06/26/20 13:33 Cephulac PO BID PRN Constipation Magnesium Hydroxide 2,400 mg 06/26/20 13:33 Milk Of Magnesia PO DAILY PRN Constipation Metoprolol Tartrate 50 mg 06/26/20 16:00 07/02/20 17:10 Lopressor PO 50 mg TID NIKA Administration Miscellaneous Information 1 each 06/29/20 06:40 Potassium Per Protocol MISCELLANE DAILY PRN Per Protocol Protocol Nystatin 1 applic 06/26/20 21:00 07/02/20 09:58 Mycostatin Cream TOPICAL 1 applic BID [facility] Administration Pantoprazole Sodium 40 mg 06/27/20 07:30 07/02/20 06:34 Protonix PO 40 mg [id number] NIKA Administration Pregabalin 100 mg 06/26/20 21:00 07/02/20 09:58 Lyrica PO 100 mg BID NIKA Administration Objective - Vital Signs Vital signs: Vital Signs Temp 97.8 F 07/02/20 16:00 Pulse 89 07/02/20 17:00 Resp 10 L 07/02/20 17:00 BP 90/80 06/28/20 10:00 Pulse Ox 95 07/02/20 17:00 Intake & Output 07/01/20 07/02/20 07/02/20 18:59 06:59 18:59 Intake Total 1176 351 665 Output Total 1724 2315 1755 [facility] [phone] Weight 194.047 kg Intake: IV 216 131 191 .9 kvo 65 95 55 Doxycycline 100 mg In 100 100 Sodium Chloride 0.9% 100 ml @ 100 mls/hr IVPB Q12HR N[facility] Rx#:[id number] Furosemide 100 mg In 15 Sodium Chloride 0.9% 90 ml @ 5 MG/HR 5 mls/hr IV .Q20H [facility] Rx#:[id number] Pressure Bags 0.9 36 36 36 Intake, IV Titration 100 Amount Doxycycline 100 mg In 100 Sodium Chloride 0.9% 100 ml @ 100 mls/hr IVPB Q12HR N[facility] Rx#:[id number] Oral 960 120 474 Output: Urine 1725 2315 1755 Other: Voiding Method Indwelling Catheter Indwelling Catheter Indwelling Catheter ABP, PAP, CO, CI - Last Documented Arterial Blood Pressure 109/56 - Exam GENERAL: The patient is alert and oriented x3, not in any acute distress. Well developed, well nourished. HEENT: Pupils are round and equally reacting to light. EOMI. No scleral icterus. No conjunctival pallor. Normocephalic, atraumatic. No pharyngeal erythema. No thyromegaly. CARDIOVASCULAR: S1 and S2 present. No murmurs, rubs, or gallops. -PULMONARY: Chest is clear to auscultation, no crackles. No wheezing ABDOMEN: Soft, nontender, nondistended, normoactive bowel sounds. No palpable organomegaly. MUSCULOSKELETAL: No joint swelling or deformity. -EXTREMITIES: No cyanosis, clubbing,. Bilateral pitting leg edema NEUROLOGICAL: Gross neurological examination did not reveal any focal deficits. SKIN: No rashes. no petechiae. - Labs CBC & Chem 7: 07/02/20 05:30 07/02/20 05:30 Labs: Abnormal Lab Results - Last 24 Hours (Table) 07/01/20 07/02/20 07/02/20 Range/Units 20:33 05:30 05:30 RBC 3.65 L (4.30-5.90) m/uL Hgb 10.7 L (13.0-17.5) gm/dL Hct 36.7 L (39.0-53.0) % MCV 100.6 H (80.0-100.0) fL MCHC 29.1 L (31.0-37.0) g/dL RDW 16.7 H (11.5-15.5) % Plt Count 136 L (150-450) k/uL Lymphocytes # 0.7 L (1.0-4.8) k/uL Chloride 96 L (98-107) mmol/L Carbon Dioxide 49 H* (22-30) mmol/L BUN 52 H (9-20) mg/dL Creatinine 1.53 H (0.66-1.25) mg/dL Glucose 104 H (74-99) mg/dL POC Glucose (mg/dL) 141 H (75-99) mg/dL 07/02/20 07/02/20 07/02/20 Range/Units 06:00 11:44 16:54 RBC (4.30-5.90) m/uL Hgb (13.0-17.5) gm/dL Hct (39.0-53.0) % MCV (80.0-100.0) fL MCHC (31.0-37.0) g/dL RDW (11.5-15.5) % Plt Count (150-450) k/uL Lymphocytes # (1.0-4.8) k/uL Chloride (98-107) mmol/L Carbon Dioxide (22-30) mmol/L BUN (9-20) mg/dL Creatinine (0.66-1.25) mg/dL Glucose (74-99) mg/dL POC Glucose (mg/dL) 112 H 145 H 126 H (75-99) mg/dL Microbiology - Last 24 Hours (Table) 06/26/20 10:05 Blood Culture - Final Blood No Growth after 144 hours Assessment and Plan Assessment: -acute on chronic hypercapnic respiratory failure: Secondary to obesity hypoventilation syndrome with bronchitis that may be some COPD exacerbation patient will be continued on doxycycline and the steroids for now -congestive heart failure chronic diastolic dysfunction with possible mild acute exacerbationpatient was started on Lasix drip and patient has improvement in kidney function after Lasix -contraction alkalosis -moderate pulmonary hypertension -Morbid obesity -COPD with acute exacerbation -bilateral chronic venous stasis -Chronic kidney disease stage III baseline creatinine of around 1.8 , patient had acute renal failure secondary to prerenal azotemia from heart failure improved with Lasix. -Respiratory acidosis secondary to assessment #1improved now -chronic A. fib on anticoagulation which will be resumed -Hyperlipidemia -Hypertension
[2020-07-02 20:41] LABS: Glucose,Whole Blood 134 mg/dL (75-99)
[2020-07-02] MEDS: FOLIC ACID 1 MG TAB PO SCH (20:57)
[2020-07-02] MEDS: ATORVASTATIN 10 MG TAB PO SCH (20:58)
[2020-07-02] MEDS: CYANOCOBALAMIN 500 MCG TAB PO SCH (20:58)
[2020-07-02] MEDS: ALPRAZolam 0.5 MG TAB PO PRN (23:06)
[2020-07-03 05:09] LABS: Anisocytosis Slight; HCT 37.6 % (39.0-53.0); HGB 11.1 gm/dL (13.0-17.5); Hypochromasia Marked; MCH 29.6 pg (25.0-35.0); MCHC 29.4 g/dL (31.0-37.0); MCV 100.7 fL (80.0-100.0); Macrocytosis Slight; Mean Platelet Volume 7.9; Platelet Count 139 k/uL (150-450); RBC 3.73 m/uL (4.30-5.90); RDW 16.6 % (11.5-15.5); WBC 4.6 k/uL (3.8-10.6)
[2020-07-03 05:35] LABS: Calcium 9.5 mg/dL (8.4-10.2); Potassium 3.9 mmol/L (3.5-5.1)
[2020-07-03 05:58] LABS: Eosinophils # (M) 0.18 k/uL (0-0.7); Lymphocytes # (M) 0.74 k/uL (1.0-4.8); Monocytes # (M) 0.18 k/uL (0-1.0); Neutrophils % (M) 76 %; Nucleated Red Blood Cells 0 /100 WBC (0-0); Polychromasia Present; Total Cells Counted 100
[2020-07-03 05:59] LABS: Poikilocytosis (M) Present
[2020-07-03 06:00] LABS: Large Platelets Present
[2020-07-03 06:21] LABS: Glucose,Whole Blood 106 mg/dL (75-99)
[2020-07-03] MEDS: INSULIN ASPART (NovoLOG) 100 UNIT/ML VIAL SQ SCH ×4 (06:22→20:58)
[2020-07-03] MEDS: PANTOPRAZOLE 40 MG TABLET PO SCH (06:23)
[2020-07-03] MEDS: IPRATROPIUM-ALBUTEROL 3 ML NEB INHALATION SCH ×4 (07:48→20:37)
[2020-07-03] MEDS ORDERED: POTASSIUM CHLORIDE ER 20 MEQ TAB.ER PO SCH (08:00)
[2020-07-03] MEDS ORDERED: ALPRAZolam 0.5 MG TAB PO STA (09:15)
[2020-07-03] MEDS: FUROSEMIDE 10 MG/ML 10 ML VIAL IV SCH ×2 (09:23→20:57)
[2020-07-03] MEDS: PREGABALIN 100 MG CAP PO SCH ×2 (09:23→20:57)
[2020-07-03] MEDS: ACETAMINOPHEN TAB 325 MG TAB PO SCH ×3 (09:24→23:07)
[2020-07-03] MEDS: DABIGATRAN 150 MG CAP PO SCH ×2 (09:24→20:56)
[2020-07-03] MEDS: NYSTATIN 100,000UNIT/GM CREAM 30 GM TUBE TOPICAL SCH ×2 (09:25→20:57)
[2020-07-03] MEDS: ASPIRIN 81 MG PO SCH (09:25)
[2020-07-03] MEDS: allopurinoL 300 MG TAB PO SCH (09:25)
[2020-07-03] MEDS: METOPROLOL TARTRATE 50 MG TAB PO SCH ×3 (09:28→20:57)
[2020-07-03 11:45] LABS: Glucose,Whole Blood 134 mg/dL (75-99)
[2020-07-03] MEDS: FERROUS SULFATE 325 MG TAB PO SCH (12:35)
--- NOTE | 2020-07-03 12:58 | P.PN ---
Subjective Progress Note Date: 07/03/20 Principal diagnosis: Acute on chronic hypercapnic and hypoxic respiratory failure secondary to acute exacerbation of COPD with obstructive sleep apnea syndrome and obesity/hypovent ilation syndrome. This is a 59-year-old male patient was morbidly obese and carries a BMI 56.7. He also has chronic hypoxic and hypercapnic respiratory failure, obstructive sleep apnea, obesity hypoventilation syndrome possible COPD. Other comorbidities include previous bariatric surgery, diabetes mellitus, hypertension and hyperlipidemia and addition to chronic congestion heart failure, chronic atrial fibrillation and chronic kidney disease.. He does hospitalization was in August 2019. At that time the patient came in with massive fluid overload. His blood gases showed an acute on top of chronic hypercapnic respiratory failure and administered acidosis. He was offered BiPAP therapy. He gradually improved and was discharged home on 2 L of oxygen by nasal cannula noninvasive positive pressure ventilation in addition to his noninvasive positive pressure ventilator. The patient was brought into the emergency department because of worsening shortness of breath and diminished level of consciousness. He was very difficult to keep him arouse and he was falling asleep repetitively. In the emergency department, blood gases was done and the patient was found to have an acute on top of chronic respiratory acidosis with a pH of 7.27 and a pCO2 of 88 and pO2 of 76. This was on FiO2 of 36%. Currently the patient in the BiPAP at a pressure of 12/5. He remains somewhat lethargic yet more arousable compared to earlier. His creatinine is 1.5 with a mean of 59. The hemoglobin is at 11.4. The chest x-ray shows evidence of cardiomegaly along with scattered senescent parenchymal changes and some elevation of the right hemidiaphragm. There is also increased pulmonary vessel markings. The patient's lactic acid level is at 0.7. ProBNP level is 4170 and his serum bicarb is at 39. He is afebrile. His cardiac rhythm is atrial fibrillation with a rate of 106 without any acute ischemic changes. There is an incomplete left bundle branch block pattern. On 06/27/2020, the patient is much improved compared to yesterday. He got transferred to the intensive care unit as the patient was quite obtunded and lethargic and he was in hypercapnic the story failure and CO2 narcosis. Based on this, the patient was started on Lasix drip at 5 mg an hour. He has made excellent urine output overnight and the patient is a negative fluid balance of at least 2 L over the past 24 hours. He was also supported with a BiPAP and he was receiving BiPAP at a pressure of 12/5 cm of water and FiO2 of 40%. A repeat blood gases from today showed a pH of 7.38 with a pCO2 of 64 and pO2 of 76. Awake and alert and following commands and answering questions. The serum bicarb currently is at 36. BUN is a 56 a creatinine of 1.5. Lasix drip is at 5 mg an hour. No other significant issues. Following commands and answering questions. 2019, the patient is being seen for a follow-up. The patient is doing well and has no specific complaints. No significant alteration in his mental status. The patient is currently on 4 L of oxygen by nasal cannula. Blood gases from this morning while on nasal cannula showed a pH of 7.35 with a pCO2 of 80 and pO2 of 98. The patient is a negative fluid balance while being on Lasix at 10 mg an hour. Menstrual balance is -1.4 L. Overnight, he was kept on BiPAP at a pressure of 12/5 with an FiO2 of 40%. He remains in atrial fibrillation at the rate of 108. No fever. No chills. No significant worsening in her renal function and the creatinine is stable at 1.6 with a BUN of 60. Serum bicarb is 41. Lower extremity edema is also improving. The wounds in lower extremities have been appropriately dressed. 06/29/2020, the patient remains on Lasix drip at 5 mg an hour. Fluid balance is negative more than 2 L over the past 24 hours. He is showing improvement in the fluid balance and lower extremity edema. Nevertheless, he continues to have significant amount of edema in all 4 extremities. His morning blood gases while on the BiPAP showed a pH of 7.28 with a pCO2 of 77 and pO2 of 95. Cellulitis is also improving in lower extremities. He is currently off the BiPAP. Overnight, he was kept on a BiPAP pressure of 12/5 cm of water and FiO2 of 40%. Currently is on 2 L of oxygen by nasal cannula. His cardiac rhythm is atrial fibrillation. The patient remains on Pradaxa for long-term anticoagulation. Repeat blood gases was done while on 4 L of oxygen by nasal cannula showed a pH of 7.31 with a pCO2 of 91 and pO2 of 72. Serum bicarb is at 37. No other significant events overnight. He is tolerating his diet. No active mentation. 06/30/2020, the patient is being seen for a follow-up is doing well. Remains in a negative fluid balance of another 2 L over the past 24 hours. His urine upper is in order of 200 mL an hour and the patient is on Lasix drip at family grams an hour. The patient's blood gas today showed a pH of 7.31 with a pCO2 of 93 and pO2 78. Serum bicarb is on the rise and the patient would benefit from Diamox. Overnight, he is using BiPAP at a pressure of 12/5 cm of water and FiO2 of 40%. During the days on feeds of oxygen by nasal cannula. Cardiac rhythm is sinus and the patient is anticoagulated. Awake and alert and there is no signs of any CO2 narcosis. Patient was reevaluated today on 07/01/20, remains in the ICU, intermittently on BiPAP with IPAP of 12 and EPAP of 5, and on FiO2 of 40%. Presently on 3 L nasal cannula. Patient remains on Lasix drip at 5 mg per hour. Excellent urine output and the response to the IV Lasix. He is in atrial fibrillation with rate controlled at 86. Chest x-ray continues to show evidence of pulmonary venous hypertension and interstitial edema with bibasilar effusions and atelectasis. Clinically the patient is feeling much better compared to how he felt on presentation. His mental status is significantly improved, he is alert and oriented 3. And not lethargic anymore. ABG today showed a pO2 of 73 pCO2 of 86 pH of 7.35. Basic metabolic profile showed a bicarb of 48 BUN is 52 creatinine is 1.56. Hence may consider discontinuing IV Lasix and switched to oral Lasix. CBC is relatively unremarkable. Patient was reevaluated today on 07/02/20, remains in the ICU as an overflow, patient is on BiPAP intermittently, presently on 3 L nasal cannula. His O2 saturation is 93%. And on BiPAP he goes on 12/5 and 40% FiO2. Patient remains on oral diuretics, 660 mg twice a day, continues to have abnormal chest x-ray showing mild congestive heart failure. Hence we'll continue Lasix. His IV fluid is at KVO. CBC is relatively normal electrolytes showed a bicarb of 49 BUN is 52 creatinine is 1.53, slightly improved compared to yesterday in spite of diuretics. Reevaluated today on 07/03/20, patient remains in the ICU as an overflow. Doing quite well, he is presently on 4 L nasal cannula with O2 saturation of 93% intermittently on BiPAP with IPAP of 12 and EPAP of 5 and 40% FiO2. Patient remains on diuretics, and overall clinically the patient continues to steadily improve. He is in chronic atrial fibrillation, however rate seems to be fairly well controlled. The plan discussed with the patient today to [facility] with telemetry no chest x-ray was done today. Labs were reviewed BUN is 48 creatinine 1.6 and his bicarb is 48. Objective - Vital Signs Vital signs: Vital Signs Temp 97.6 F 07/03/20 08:00 Pulse 81 07/03/20 11:54 Resp 15 07/03/20 08:02 BP 90/80 06/28/20 10:00 Pulse Ox 98 07/03/20 08:00 Intake & Output 07/02/20 07/03/20 07/03/20 18:59 06:59 18:59 Intake Total 673 167 34 Output Total 2034 2445 680 Balance -2541 -3360 -868 Weight 191.325 kg Intake: IV 199 67 34 .9 kvo 60 40 25 Doxycycline 100 mg In 100 Sodium Chloride 0.9% 100 ml @ 100 mls/hr IVPB Q12HR [facility] Rx#:[id number] Pressure Bags 0.9 39 27 9 Intake, IV Titration 100 Amount Doxycycline 100 mg In 100 Sodium Chloride 0.9% 100 ml @ 100 mls/hr IVPB Q12HR [facility] Rx#:[id number] Oral 474 Output: Urine 2034 2445 680 Other: Voiding Method Indwelling Catheter Indwelling Catheter ABP, PAP, CO, CI - Last Documented Arterial Blood Pressure 132/67 - Exam Physical Exam: Revealed a morbidly obese white male, on 4 L nasal cannula, in no distress. Head: Atraumatic, normocephalic. HEENT:[Neck is supple.] [No neck masses.] [No thyromegaly.] [No JVD.]EOMI, no neck masses, no JVD. Chest: [Symmetrical chest expansion crackles at the bases no rhonchi and no wheezes.] Cardiac Exam: Irregular irregular rhythm. [Normal S1 and S2, no S3 gallop, no murmur.] Abdomen: Obese, [Soft, nontender, no megaly, no rebound, no guarding, normal bowel sounds.] Extremities: [No clubbing, 2+ bipedal edema. no cyanosis.] Good pulses bilaterally. Skin: Significant erythema and skin laceration involving the lower extremity above the ankle extending anteriorly over the right lower extremity and a large open wound anteriorly without evidence of any active drainage or purulent material. Neurological Exam: [No focal neurologic deficit.] Alert and oriented 3. Psychiatric: Normal mood, affect and normal mental status examination. - Labs CBC & Chem 7: 07/03/20 04:25 07/03/20 04:25 Labs: Abnormal Lab Results - Last 24 Hours (Table) 07/02/20 07/02/20 07/03/20 Range/Units 16:54 20:39 04:25 RBC 3.73 L (4.30-5.90) m/uL Hgb 11.1 L (13.0-17.5) gm/dL Hct 37.6 L (39.0-53.0) % MCV 100.7 H (80.0-100.0) fL MCHC 29.4 L (31.0-37.0) g/dL RDW 16.6 H (11.5-15.5) % Plt Count 139 L (150-450) k/uL Lymphocytes # (Manual) 0.74 L (1.0-4.8) k/uL Chloride (98-107) mmol/L Carbon Dioxide (22-30) mmol/L BUN (9-20) mg/dL Creatinine (0.66-1.25) mg/dL Glucose (74-99) mg/dL POC Glucose (mg/dL) 126 H 134 H (75-99) mg/dL 07/03/20 07/03/20 07/03/20 Range/Units 04:25 06:19 11:44 RBC (4.30-5.90) m/uL Hgb (13.0-17.5) gm/dL Hct (39.0-53.0) % MCV (80.0-100.0) fL MCHC (31.0-37.0) g/dL RDW (11.5-15.5) % Plt Count (150-450) k/uL Lymphocytes # (Manual) (1.0-4.8) k/uL Chloride 95 L (98-107) mmol/L Carbon Dioxide 48 H* (22-30) mmol/L BUN 48 H (9-20) mg/dL Creatinine 1.60 H (0.66-1.25) mg/dL Glucose 107 H (74-99) mg/dL POC Glucose (mg/dL) 106 H 134 H (75-99) mg/dL Microbiology - Last 24 Hours (Table) 06/26/20 10:05 Blood Culture - Final Blood No Growth after 144 hours Assessment and Plan Assessment: Impression: Acute on chronic hypoxic and hypercapnic respiratory failure with altered mental status secondary to CO2 narcosis this is mostly secondary to obesity/hypoventilation syndrome. Active sleep apnea syndrome. And underlying COPD with acute exacerbation. Chronic diastolic congestive heart failure is strongly suspected. Obstructive sleep apnea with obesity/hypoventilation syndrome Chronic cor pulmonale and pulmonary hypertension Morbid obesity and previous bariatric surgery. Chronic atrial fibrillation. Benign essential hypertension. Chronic kidney disease stage III Chronic venous stasis of lower extremities with chronic ulcerations of right lower extremity Type 2 diabetes. Recommendation: Continue BiPAP intermittently, as needed otherwise continue oxygen via nasal cannula. Continue Lasix Continue to monitor renal profile. Continue diuretics and bronchodilators. Continue wound care of lower extremity. Transfer to a medical surgical floor if available. Long-term prognosis remains poor and guarded. Patient will eventually require home placement or rehab facility Time with Patient: Less than 30
--- NOTE | 2020-07-03 13:37 | P.PN ---
Subjective From records 59-year-old male came in with complaints of shortness of breath excessively drowsy patient is able to provide me history with easily goes intosleep. Because of which I am asked for from her ABGs and ABGs were ordered and the ABGs are showing mild the respiratory acidosis with a pCO2 of around 90. Patient is morbidly obese does have a obesity hypoventilation syndrome and sleep apnea. Patient does have history of COPD as well as chronic diastolic dysfunction. Patient's chest x-ray did not show any pneumonic infiltrate patient was comparing of cough with greenish sputum production. Patient does have extensive bilateral pedal edema probably mostly due to chronic venous stasis rather than heart failure itself I'm unable to assess JVD, BNP is around 4170. Patient uses anywhere between 4-5 L of oxygen at home. 06/28/2020 Patient respiratory acidosis and hypercapnia improved with BiPAP patient was switched to 6 L still using BiPAP and as-needed basis when he sleeps. Patient apparently will require noninvasive ventilationeven after discharge.patient is much more awake much less sleepy today. 06/29/2020 patient remains on the IV Lasix drip mild worsening of serum creatinine Lasix drip is being changed to 5 mg lower as is having significant urine output still hasn't been pedal edema does have some contraction alkalosis.patient 4 L apart from surgery 92% this is his baseline patient uses BiPAP when he sleeps. Constitutional: Denied any fatigue denied any fever. Cardio vascular: denied any chest pain, palpitations Gastrointestinal denied any nausea vomiting Pulmonary: Denied any shortness of breath cough Neurologic denied any new focal deficits 06/29/2020 Patient mentation is improved however he still looks a little drowsy, history And dyspneic with and little phlegm. Vitas looks stable and he is saturating 90 associated to oxygen via nasal cannula Patient is still needing BiPAP overnight. Remains on Lasix drip at 5 mL/h. And he is making good urine output about 50-100 milliliters per hour. Acute Patient was complaining of from bilateral leg pain, venous ultrasound showing no DVT Continue with Pradaxa, doxycycline and Lasix drip Patient may benefit from inpatient rehab upon discharge 06/30/2020 Patient still dyspneic with only some improvement, his little drowsy and with co ugh and phlegm. He still needs BiPAP overnight Creatinine is stable at 1.4 He continue on the Lasix drip at 5 mL/h and Diamox was added twice daily today He is also on doxycycline and blood thinner Pradaxa 07/01/2020 Patient is awake and alert, he feels his breathing is improving today. He still needs breathing treatment. History of the@2227, rest of vitals are stable, he is saturating 90-94% on 2-3 L of oxygen via nasal cannula. ABG today showed normal pH 7.3 but high pCO2 at 86 with low pO2 at 73 and bicarb of 47. CBC is unremarkable, BMP showing backup high at 48 and creatinine 1.5, similar to yesterday chest x-ray: Pulmonary venous hypertension and interstitial edema. Correlate to exclude pneumonia. Indeterminant nodularity within the left lung per radiologist ,Pulmonary team on the case His Lasix drip is a switched to IV Lasix 60 mg twice a day, besides IV doxycycline and Pradaxa 07/02/2020 Patient still in the ICU, his dyspnea is slowly feeling better, still having cough. And he still has 2+ leg swelling however on chest examination there is no basal crepitation but this is limited by his body habitus. He is still using BiPAP at night, however Lasix drip was switched to IV Lasix 60 twice a day and Diamox has been added today by nephrology team. His creatinine is stable at 1.5, pro-calcitonin is back to normal and patient may stop the doxycycline in 1-2 days. However his blood still showing alkalemia with carbon dioxide to 49 however. Yesterday was normal with no evidence of alkalosis. He still saturating 90s on 4 L oxygen via nasal cannula. 06/02/2020 Patient in the ICU, his breathing is looks better today and cough and is less. This allowed leg edema. No crepitation or wheezing on lung examination, he looks a slightly anxious and one-time dose of Xanax a provided. Remains on Lasix 60 mg IV twice daily and Diamox has been added yesterday at 250 mg twice daily. He needs BiPAP at certain times.. He has persistent alkalemia with carbo dioxide is 48, creatinine is stable at 1.6, he is saturating 98% on 4 L oxygen via nasal cannula Patient can be transferred to the general medical floor today. CONSTITUTIONAL: No fever, no malaise, no fatigue. HEENT: No recent visual problems or hearing problems. Denied any sore throat. CARDIOVASCULAR: No orthopnea, PND, no palpitations, no syncope. PULMONARY: No shortness of breath, no cough, no hemoptysis. GASTROINTESTINAL: No diarrhea, no nausea, no vomiting, no abdominal pain. Normoactive bowel sounds. NEUROLOGICAL: No headaches, no weakness, no numbness. Active Medications Generic Name Dose Route Start Last Admin Trade Name Freq PRN Reason Stop Dose Admin Acetaminophen 650 mg 06/26/20 16:00 07/03/20 09:24 Tylenol Tab PO 650 mg Q8HR [facility] Administration Hydrocodone Bitart/Acetaminophen 1 each 06/29/20 09:00 07/02/20 14:11 [place] 5-325 PO 1 each Q6HR PRN Administration Pain Acetazolamide Sodium 250 mg 07/02/20 10:30 07/03/20 09:23 Diamox IV 250 mg Q12HR [facility] Administration Albuterol/Ipratropium 3 ml 06/26/20 12:00 07/03/20 11:43 Duoneb 0.5 Mg-3 Mg/3 Ml Soln INHALATION 3 ml RT-QID [facility] Administration Albuterol/Ipratropium 3 ml 06/26/20 11:28 Duoneb 0.5 Mg-3 Mg/3 Ml Soln INHALATION RT-Q4H PRN Shortness Of Breath Or Wheezing Allopurinol 300 mg 06/27/20 09:00 07/03/20 09:25 Zyloprim PO 300 mg DAILY [facility] Administration Alprazolam 0.5 mg 06/28/20 09:38 07/02/20 23:06 Xanax PO 0.5 mg HS PRN Administration Anxiety Aspirin 81 mg 06/27/20 09:00 07/03/20 09:25 Aspirin PO 81 mg DAILY [facility] Administration Atorvastatin Calcium 10 mg 06/26/20 21:00 07/02/20 20:58 Lipitor PO 10 mg HS [facility] Administration Cyanocobalamin 500 mcg 06/26/20 21:00 07/02/20 20:58 Vitamin B-12 PO 500 mcg HS [facility] Administration Dabigatran 150 mg 06/26/20 21:00 07/03/20 09:24 Pradaxa PO 150 mg BID [facility] Administration Ferrous Sulfate 325 mg 06/27/20 12:00 07/03/20 12:35 Feosol PO 325 mg DAILY@1200 [facility] Administration Folic Acid 0.5 mg 06/26/20 21:00 07/02/20 20:57 Folic Acid PO 0.5 mg HS [facility] Administration Furosemide 60 mg 07/01/20 21:00 07/03/20 09:23 Lasix IV 60 mg Q12HR [facility] Administration Insulin Aspart 0 unit 06/27/20 17:30 07/03/20 12:35 Novolog SQ 1 unit ACHS [facility] Administration Protocol Lactulose 20 gm 06/26/20 13:33 Cephulac PO BID PRN Constipation Magnesium Hydroxide 2,400 mg 06/26/20 13:33 Milk Of Magnesia PO DAILY PRN Constipation Metoprolol Tartrate 50 mg 06/26/20 16:00 07/03/20 09:28 Lopressor PO 50 mg TID [facility] Administration Miscellaneous Information 1 each 06/29/20 06:40 Potassium Per Protocol MISCELLANE DAILY PRN Per Protocol Protocol Nystatin 1 applic 06/26/20 21:00 07/03/20 09:25 Mycostatin Cream TOPICAL 1 applic BID [facility] Administration Pantoprazole Sodium 40 mg 06/27/20 07:30 07/03/20 06:23 Protonix PO 40 mg [id number] [facility] Administration Pregabalin 100 mg 06/26/20 21:00 07/03/20 09:23 Lyrica PO 100 mg BID [facility] Administration Objective - Vital Signs Vital signs: Vital Signs Temp 97.6 F 07/03/20 08:00 Pulse 81 07/03/20 11:54 Resp 15 07/03/20 08:02 BP 90/80 06/28/20 10:00 Pulse Ox 98 07/03/20 08:00 Intake & Output 07/02/20 07/03/20 07/03/20 18:59 06:59 18:59 Intake Total 673 167 34 Output Total 0644 7522 830 Balance -4357 -7001 -696 Weight 191.325 kg Intake: IV 199 67 34 .9 kvo 60 40 25 Doxycycline 100 mg In 100 Sodium Chloride 0.9% 100 ml @ 100 mls/hr IVPB Q12HR [facility] Rx#:[id number] Pressure Bags 0.9 39 27 9 Intake, IV Titration 100 Amount Doxycycline 100 mg In 100 Sodium Chloride 0.9% 100 ml @ 100 mls/hr IVPB Q12HR [facility] Rx#:[id number] Oral 474 Output: Urine 6664 8866 680 Other: Voiding Method Indwelling Catheter Indwelling Catheter ABP, PAP, CO, CI - Last Documented Arterial Blood Pressure 132/67 - Exam GENERAL: The patient is alert and oriented x3, not in any acute distress. Well d eveloped, well nourished. HEENT: Pupils are round and equally reacting to light. EOMI. No scleral icterus. No conjunctival pallor. Normocephalic, atraumatic. No pharyngeal erythema. No thyromegaly. CARDIOVASCULAR: S1 and S2 present. No murmurs, rubs, or gallops. -PULMONARY: Chest is clear to auscultation, no crackles. No wheezing ABDOMEN: Soft, nontender, nondistended, normoactive bowel sounds. No palpable organomegaly. MUSCULOSKELETAL: No joint swelling or deformity. -EXTREMITIES: No cyanosis, clubbing,. Bilateral pitting leg edema NEUROLOGICAL: Gross neurological examination did not reveal any focal deficits. SKIN: No rashes. no petechiae. - Labs CBC & Chem 7: 07/03/20 04:25 07/03/20 04:25 Labs: Abnormal Lab Results - Last 24 Hours (Table) 07/02/20 07/02/20 07/03/20 Range/Units 16:54 20:39 04:25 RBC 3.73 L (4.30-5.90) m/uL Hgb 11.1 L (13.0-17.5) gm/dL Hct 37.6 L (39.0-53.0) % MCV 100.7 H (80.0-100.0) fL MCHC 29.4 L (31.0-37.0) g/dL RDW 16.6 H (11.5-15.5) % Plt Count 139 L (150-450) k/uL Lymphocytes # (Manual) 0.74 L (1.0-4.8) k/uL Chloride (98-107) mmol/L Carbon Dioxide (22-30) mmol/L BUN (9-20) mg/dL Creatinine (0.66-1.25) mg/dL Glucose (74-99) mg/dL POC Glucose (mg/dL) 126 H 134 H (75-99) mg/dL 07/03/20 07/03/20 07/03/20 Range/Units 04:25 06:19 11:44 RBC (4.30-5.90) m/uL Hgb (13.0-17.5) gm/dL Hct (39.0-53.0) % MCV (80.0-100.0) fL MCHC (31.0-37.0) g/dL RDW (11.5-15.5) % Plt Count (150-450) k/uL Lymphocytes # (Manual) (1.0-4.8) k/uL Chloride 95 L (98-107) mmol/L Carbon Dioxide 48 H* (22-30) mmol/L BUN 48 H (9-20) mg/dL Creatinine 1.60 H (0.66-1.25) mg/dL Glucose 107 H (74-99) mg/dL POC Glucose (mg/dL) 106 H 134 H (75-99) mg/dL Microbiology - Last 24 Hours (Table) 06/26/20 10:05 Blood Culture - Final Blood No Growth after 144 hours Assessment and Plan Assessment: -acute on chronic hypercapnic respiratory failure: Secondary to obesity hypoventilation syndrome with bronchitis that may be some COPD exacerbation patient will be continued on doxycycline and the steroids for now -congestive heart failure chronic diastolic dysfunction with possible mild acute exacerbationpatient was started on Lasix drip and patient has improvement in kidney function after Lasix -contraction alkalosis -moderate pulmonary hypertension -Morbid obesity -COPD with acute exacerbation -bilateral chronic venous stasis -Chronic kidney disease stage III baseline creatinine of around 1.8 , patient had acute renal failure secondary to prerenal azotemia from heart failure improved with Lasix. -Respiratory acidosis secondary to assessment #1improved now -chronic A. fib on anticoagulation which will be resumed -Hyperlipidemia -Hypertension
[2020-07-03 17:31] LABS: Glucose,Whole Blood 150 mg/dL (75-99)
[2020-07-03] MEDS: DOXYCYCLINE 100 MG in SODIUM CHLORIDE 0.9% 100 ML IVPB SCH (19:07)
[2020-07-03] MEDS: FAMOTIDINE 20 MG TAB PO SCH (19:07)
[2020-07-03 20:31] LABS: Glucose,Whole Blood 182 mg/dL (75-99)
[2020-07-03] MEDS: FOLIC ACID 1 MG TAB PO SCH (20:56)
[2020-07-03] MEDS: ATORVASTATIN 10 MG TAB PO SCH (20:57)
[2020-07-03] MEDS: CYANOCOBALAMIN 500 MCG TAB PO SCH (20:57)
[2020-07-04 06:56] LABS: Glucose,Whole Blood 93 mg/dL (75-99)
[2020-07-04] MEDS: INSULIN ASPART (NovoLOG) 100 UNIT/ML VIAL SQ SCH ×4 (07:17→20:28)
[2020-07-04] MEDS: PREGABALIN 100 MG CAP PO SCH ×2 (07:28→20:29)
[2020-07-04] MEDS: allopurinoL 300 MG TAB PO SCH (07:29)
[2020-07-04] MEDS: METOPROLOL TARTRATE 50 MG TAB PO SCH ×3 (07:29→20:29)
[2020-07-04] MEDS: PANTOPRAZOLE 40 MG TABLET PO SCH (07:29)
[2020-07-04] MEDS: ASPIRIN 81 MG PO SCH (07:29)
[2020-07-04] MEDS: DABIGATRAN 150 MG CAP PO SCH ×2 (07:30→20:29)
[2020-07-04] MEDS: ACETAMINOPHEN TAB 325 MG TAB PO SCH ×3 (07:30→23:19)
[2020-07-04] MEDS: FUROSEMIDE 10 MG/ML 10 ML VIAL IV SCH (07:32)
[2020-07-04] MEDS: NYSTATIN 100,000UNIT/GM CREAM 30 GM TUBE TOPICAL SCH ×2 (07:32→20:30)
[2020-07-04] MEDS: IPRATROPIUM-ALBUTEROL 3 ML NEB INHALATION SCH ×5 (07:53→20:43)
[2020-07-04 08:47] LABS: Calcium 9.5 mg/dL (8.4-10.2); Potassium 3.9 mmol/L (3.5-5.1)
--- NOTE | 2020-07-04 11:13 | PN ---
PROGRESS NOTE Patient is seen for followup for acute kidney injury, mostly cardiorenal, currently improving. The patient is maintained on IV Lasix and he has had good urine output and good diuresis. Volume status has improved significantly. He can be discharged. He would need to take Lasix at least 60 mg p.o. b.i.d. PHYSICAL EXAM: Today, blood pressure was 108/80, heart rate 95 per minute, patient is afebrile. Examination of the heart S1, S2. Examination of the lungs, bilateral breath sounds are heard. Abdomen is soft. Morbidly obese. Examination of the lower extremities shows chronic skin changes. Bilateral legs are wrapped. 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 LABS: Show sodium 144, potassium 3.9, chloride 95, CO2 is 51, creatinine 1.72. ASSESSMENT: 1. Acute kidney injury, cardiorenal, with serum creatinine recently increasing secondary to diuresis. I will DC the IV Lasix and switch to p.o. Lasix. 2. Metabolic alkalosis secondary to diuresis maintained on Diamox, which I will continue. Expect further improvement as the Lasix is on hold for at least 1 day. 3. Volume overload, currently significantly improved. Patient can resume Lasix 60 mg a.m. and 40 mg p.m. upon discharge with repeat labs to be done in about 2-3 days. 4. Morbid obesity. 5. Chronic kidney disease stage 3. Baseline creatinine about 1.5 mg/dL. 6. Acute on top of chronic diastolic congestive heart failure with moderate tricuspid regurgitation and pulmonary hypertension. PLAN: Hold Lasix. Continue with IV Diamox. The patient can likely be discharged tomorrow. He will need Lasix 60 a.m. and 40 mg p.m. post discharge with repeat labs to be done in 2-3 days post discharge. I would hold off on discharge today secondary to worsening metabolic alkalosis. MMODL / IJN: [id number] /
--- NOTE | 2020-07-04 11:37 | P.PN ---
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 He also has chronic hypoxic and hypercapnic respiratory failure, obstructive sleep apnea, obesity hypoventilation syndrome possible COPD. Other comorbidities include previous bariatric surgery, diabetes mellitus, hypertension and hyperlipidemia and addition to chronic congestion heart failure, chronic atrial fibrillation and chronic kidney disease.. He does hospitalization was in August 2019. At that time the patient came in with massive fluid overload. His blood gases showed an acute on top of chronic hypercapnic respiratory failure and administered acidosis. He was offered BiPAP therapy. He gradually improved and was discharged home on 2 L of oxygen by nasal cannula noninvasive positive pressure ventilation in addition to his noninvasive positive pressure ventilator. The patient was brought into the emergency department because of worsening shortness of breath and diminished level of consciousness. He was very difficult to keep him arouse and he was falling asleep repetitively. In the emergency department, blood gases was done and the patient was found to have an acute on top of chronic respiratory acidosis with a pH of 7.27 and a pCO2 of 88 and pO2 of 76. This was on FiO2 of 36%. Currently the patient in the BiPAP at a pressure of 12/5. He remains somewhat lethargic yet more arousable compared to earlier. His creatinine is 1.5 with a mean of 59. The hemoglobin is at 11.4. The chest x-ray shows evidence of cardiomegaly along with scattered senescent parenchymal changes and some elevation of the right hemidiaphragm. There is also increased pulmonary vessel markings. The patient's lactic acid level is at 0.7. ProBNP level is 4170 and his serum bicarb is at 39. He is afebrile. His cardiac rhythm is atrial fibrillation with a rate of 106 without any acute ischemic changes. There is an incomplete left bundle branch block pattern. On 06/27/2020, the patient is much improved compared to yesterday. He got transferred to the intensive care unit as the patient was quite obtunded and lethargic and he was in hypercapnic the story failure and CO2 narcosis. Based on this, the patient was started on Lasix drip at 5 mg an hour. He has made excellent urine output overnight and the patient is a negative fluid balance of at least 2 L over the past 24 hours. He was also supported with a BiPAP and he was receiving BiPAP at a pressure of 12/5 cm of water and FiO2 of 40%. A repeat blood gases from today showed a pH of 7.38 with a pCO2 of 64 and pO2 of 76. Awake and alert and following commands and answering questions. The serum b icarb currently is at 36. BUN is a 56 a creatinine of 1.5. Lasix drip is at 5 mg an hour. No other significant issues. Following commands and answering questions. 2019, the patient is being seen for a follow-up. The patient is doing well and has no specific complaints. No significant alteration in his mental status. The patient is currently on 4 L of oxygen by nasal cannula. Blood gases from this morning while on nasal cannula showed a pH of 7.35 with a pCO2 of 80 and pO2 of 98. The patient is a negative fluid balance while being on Lasix at 10 mg an hour. Menstrual balance is -1.4 L. Overnight, he was kept on BiPAP at a pressure of 12/5 with an FiO2 of 40%. He remains in atrial fibrillation at the rate of 108. No fever. No chills. No significant worsening in her renal function and the creatinine is stable at 1.6 with a BUN of 60. Serum bicarb is 41. Lower extremity edema is also improving. The wounds in lower extremities have been appropriately dressed. 06/29/2020, the patient remains on Lasix drip at 5 mg an hour. Fluid balance is negative more than 2 L over the past 24 hours. He is showing improvement in the fluid balance and lower extremity edema. Nevertheless, he continues to have significant amount of edema in all 4 extremities. His morning blood gases while on the BiPAP showed a pH of 7.28 with a pCO2 of 77 and pO2 of 95. Cellulitis is also improving in lower extremities. He is currently off the BiPAP. Overnight, he was kept on a BiPAP pressure of 12/5 cm of water and FiO2 of 40%. Currently is on 2 L of oxygen by nasal cannula. His cardiac rhythm is atrial fibrillation. The patient remains on Pradaxa for long-term anticoagulation. Repeat blood gases was done while on 4 L of oxygen by nasal cannula showed a pH of 7.31 with a pCO2 of 91 and pO2 of 72. Serum bicarb is at 37. No other significant events overnight. He is tolerating his diet. No active mentation. 06/30/2020, the patient is being seen for a follow-up is doing well. Remains in a negative fluid balance of another 2 L over the past 24 hours. His urine upper is in order of 200 mL an hour and the patient is on Lasix drip at family grams an hour. The patient's blood gas today showed a pH of 7.31 with a pCO2 of 93 and pO2 78. Serum bicarb is on the rise and the patient would benefit from Diamox. Overnight, he is using BiPAP at a pressure of 12/5 cm of water and FiO2 of 40%. During the days on feeds of oxygen by nasal cannula. Cardiac rhythm is sinus and the patient is anticoagulated. Awake and alert and there is no signs of any CO2 narcosis. Patient was reevaluated today on 07/01/20, remains in the ICU, intermittently on BiPAP with IPAP of 12 and EPAP of 5, and on FiO2 of 40%. Presently on 3 L nasal cannula. Patient remains on Lasix drip at 5 mg per hour. Excellent urine output and the response to the IV Lasix. He is in atrial fibrillation with rate controlled at 86. Chest x-ray continues to show evidence of pulmonary venous hypertension and interstitial edema with bibasilar effusions and atelectasis. Clinically the patient is feeling much better compared to how he felt on presentation. His mental status is significantly improved, he is alert and oriented 3. And not lethargic anymore. ABG today showed a pO2 of 73 pCO2 of 8 6 pH of 7.35. Basic metabolic profile showed a bicarb of 48 BUN is 52 creatinine is 1.56. Hence may consider discontinuing IV Lasix and switched to oral Lasix. CBC is relatively unremarkable. Patient was reevaluated today on 07/02/20, remains in the ICU as an overflow, patient is on BiPAP intermittently, presently on 3 L nasal cannula. His O2 saturation is 93%. And on BiPAP he goes on 12/5 and 40% FiO2. Patient remains on oral diuretics, 660 mg twice a day, continues to have abnormal chest x-ray showing mild congestive heart failure. Hence we'll continue Lasix. His IV fluid is at KVO. CBC is relatively normal electrolytes showed a bicarb of 49 BUN is 52 creatinine is 1.53, slightly improved compared to yesterday in spite of diuretics. Reevaluated today on 07/03/20, patient remains in the ICU as an overflow. Doing quite well, he is presently on 4 L nasal cannula with O2 saturation of 93% intermittently on BiPAP with IPAP of 12 and EPAP of 5 and 40% FiO2. Patient remains on diuretics, and overall clinically the patient continues to steadily improve. He is in chronic atrial fibrillation, however rate seems to be fairly well controlled. The plan discussed with the patient today to [facility] with telemetry no chest x-ray was done today. Labs were reviewed BUN is 48 creatinin e 1.6 and his bicarb is 48. The patient is seen today 07/04/2020 in follow-up on the regular medical floor. He is sitting up in bed. Awake and alert in no acute distress. No worsening shortness of breath, cough or congestion. He is maintaining good O2 saturation in the 90s on 4 L/m per nasal cannula. He's been afebrile. Blood culture reveals no growth. Sodium 144. Potassium 3.9. Bicarb 51. Creatinine 1.72. Objective - Vital Signs Vital signs: Vital Signs Temp 98.1 F 07/04/20 06:57 Pulse 80 07/04/20 11:23 Resp 22 07/04/20 07:00 BP 108/80 07/04/20 06:57 Pulse Ox 96 07/04/20 06:57 Intake & Output 07/03/20 07/04/20 07/04/20 18:59 06:59 18:59 Intake Total 129 Output Total 9112 912 0438 Balance -1631 -900 -1600 Intake: IV 129 .9 kvo 105 Pressure Bags 0.9 24 Output: Urine 3117 687 6264 Other: Voiding Method Indwelling Catheter Indwelling Catheter Indwelling Catheter ABP, PAP, CO, CI - Last Documented Arterial Blood Pressure 132/67 - Exam Physical Exam: Revealed a morbidly obese 59-year-old gentleman, on 4 L nasal cannula, in no distress. Head: Atraumatic, normocephalic. HEENT:[Neck is supple.] [No neck masses.] [No thyromegaly.] [No JVD.]EOMI, no neck masses, no JVD. Chest: [Symmetrical chest expansion crackles at the bases no rhonchi and no wheezes.] Cardiac Exam: Irregular irregular rhythm. [Normal S1 and S2, no S3 gallop, no murmur.] Abdomen: Obese, [Soft, nontender, no megaly, no rebound, no guarding, normal bowel sounds.] Extremities: [No clubbing, 2+ bipedal edema. no cyanosis.] Good pulses bilaterally. Skin: Significant erythema and skin laceration involving the lower extremity above the ankle extending anteriorly over the right lower extremity and a large open wound anteriorly without evidence of any active drainage or purulent material. Neurological Exam: [No focal neurologic deficit.] Alert and oriented 3. Psychiatric: Normal mood, affect and normal mental status examination. - Labs CBC & Chem 7: 07/03/20 04:25 07/04/20 07:25 Labs: Abnormal Lab Results - Last 24 Hours (Table) 07/03/20 07/03/20 07/03/20 Range/Units 11:44 17:28 20:29 Chloride (98-107) mmol/L Carbon Dioxide (22-30) mmol/L BUN (9-20) mg/dL Creatinine (0.66-1.25) mg/dL POC Glucose (mg/dL) 134 H 150 H 182 H (75-99) mg/dL 07/04/20 Range/Units 07:25 Chloride 95 L (98-107) mmol/L Carbon Dioxide 51 H* (22-30) mmol/L BUN 45 H (9-20) mg/dL Creatinine 1.72 H (0.66-1.25) mg/dL POC Glucose (mg/dL) (75-99) mg/dL Assessment and Plan Assessment: Acute on chronic hypoxic and hypercapnic respiratory failure with altered mental status secondary to CO2 narcosis this is mostly secondary to obesity/hypoventilation syndrome. Active sleep apnea syndrome. And underlying COPD with acute exacerbation. Recovered Chronic diastolic congestive heart failure is strongly suspected. Obstructive sleep apnea with obesity/hypoventilation syndrome Chronic cor pulmonale and pulmonary hypertension Morbid obesity and previous bariatric surgery. Chronic atrial fibrillation. Benign essential hypertension. Chronic kidney disease stage III Chronic venous stasis of lower extremities with chronic ulcerations of right lower extremity Type 2 diabetes. Plan: The patient was seen and evaluated by Dr. Govea He is stable from the pulmonary and critical care standpoint Okay for transfer back to [facility] once cleared medically I, the cosigning physician, performed a history & physical examination of the patient. Lungs sounds with few scattered crackles, diminished. Maintaining good O2 saturations in the 90s on 4 L/m per nasal cannula. I discussed the assessment and plan of care with my nurse practitioner, Erika Howell. I attest to the above note as dictated by her.
[2020-07-04 11:42] LABS: Glucose,Whole Blood 129 mg/dL (75-99)
[2020-07-04] MEDS: HYDROcodone/APAP 5-325MG 1 EACH TAB PO PRN ×2 (12:08→23:15)
[2020-07-04] MEDS: FERROUS SULFATE 325 MG TAB PO SCH (12:09)
[2020-07-04 13:56] VITALS: BMI 55.6
--- NOTE | 2020-07-04 14:48 | P.PN ---
Subjective From records 59-year-old male came in with complaints of shortness of breath excessively drowsy patient is able to provide me history with easily goes intosleep. Because of which I am asked for from her ABGs and ABGs were ordered and the ABGs are showing mild the respiratory acidosis with a pCO2 of around 90. Patient is morbidly obese does have a obesity hypoventilation syndrome and sleep apnea. Patient does have history of COPD as well as chronic diastolic dysfunction. Patient's chest x-ray did not show any pneumonic infiltrate patient was comparing of cough with greenish sputum production. Patient does have extensive bilateral pedal edema probably mostly due to chronic venous stasis rather than heart failure itself I'm unable to assess JVD, BNP is around 4170. Patient uses anywhere between 4-5 L of oxygen at home. 06/28/2020 Patient respiratory acidosis and hypercapnia improved with BiPAP patient was switched to 6 L still using BiPAP and as-needed basis when he sleeps. Patient apparently will require noninvasive ventilationeven after discharge.patient is much more awake much less sleepy today. 06/29/2020 patient remains on the IV Lasix drip mild worsening of serum creatinine Lasix drip is being changed to 5 mg lower as is having significant urine output still hasn't been pedal edema does have some contraction alkalosis.patient 4 L apart from surgery 92% this is his baseline patient uses BiPAP when he sleeps. Constitutional: Denied any fatigue denied any fever. Cardio vascular: denied any chest pain, palpitations Gastrointestinal denied any nausea vomiting Pulmonary: Denied any shortness of breath cough Neurologic denied any new focal deficits 06/29/2020 Patient mentation is improved however he still looks a little drowsy, history And dyspneic with and little phlegm. Vitas looks stable and he is saturating 90 associated to oxygen via nasal cannula Patient is still needing BiPAP overnight. Remains on Lasix drip at 5 mL/h. And he is making good urine output about 50-100 milliliters per hour. Acute Patient was complaining of from bilateral leg pain, venous ultrasound showing no DVT Continue with Pradaxa, doxycycline and Lasix drip Patient may benefit from inpatient rehab upon discharge 06/30/2020 Patient still dyspneic with only some improvement, his little drowsy and with co ugh and phlegm. He still needs BiPAP overnight Creatinine is stable at 1.4 He continue on the Lasix drip at 5 mL/h and Diamox was added twice daily today He is also on doxycycline and blood thinner Pradaxa 07/01/2020 Patient is awake and alert, he feels his breathing is improving today. He still needs breathing treatment. History of the@[id number], rest of vitals are stable, he is saturating 90-94% on 2-3 L of oxygen via nasal cannula. ABG today showed normal pH 7.3 but high pCO2 at 86 with low pO2 at 73 and bicarb of 47. CBC is unremarkable, BMP showing backup high at 48 and creatinine 1.5, similar to yesterday chest x-ray: Pulmonary venous hypertension and interstitial edema. Correlate to exclude pneumonia. Indeterminant nodularity within the left lung per radiologist ,Pulmonary team on the case His Lasix drip is a switched to IV Lasix 60 mg twice a day, besides IV doxycycline and Pradaxa 07/02/2020 Patient still in the ICU, his dyspnea is slowly feeling better, still having cough. And he still has 2+ leg swelling however on chest examination there is no basal crepitation but this is limited by his body habitus. He is still using BiPAP at night, however Lasix drip was switched to IV Lasix 60 twice a day and Diamox has been added today by nephrology team. His creatinine is stable at 1.5, pro-calcitonin is back to normal and patient may stop the doxycycline in 1-2 days. However his blood still showing alkalemia with carbon dioxide to 49 however. Yesterday was normal with no evidence of alkalosis. He still saturating 90s on 4 L oxygen via nasal cannula. 07/03/2020 Patient in the ICU, his breathing is looks better today and cough and is less. This allowed leg edema. No crepitation or wheezing on lung examination, he looks a slightly anxious and one-time dose of Xanax a provided. Remains on Lasix 60 mg IV twice daily and Diamox has been added yesterday at 250 mg twice daily. He needs BiPAP at certain times.. He has persistent alkalemia with carbo dioxide is 48, creatinine is stable at 1.6, he is saturating 98% on 4 L oxygen via nasal cannula Patient can be transferred to the general medical floor today. 07/04/20 Patient is breathing much easier today and he is saturating 96% on 4 L oxygen per nasal cannula. Pulmonary team. For discharge, he has this swelling in his legs. However nephrology team would like him to get 1 more day of IV Diamox, ho ld IV Lasix. Possible discharge in 24-48 hours Objective - Vital Signs Vital signs: Vital Signs Temp 98.1 F 07/04/20 06:57 Pulse 84 07/04/20 11:32 Resp 22 07/04/20 07:00 BP 108/80 07/04/20 06:57 Pulse Ox 96 07/04/20 06:57 Intake & Output 07/03/20 07/04/20 07/04/20 18:59 06:59 18:59 Intake Total 129 Output Total 9175 200 2226 Balance -1631 900 -1600 Weight 191.325 kg Intake: IV 129 .9 kvo 105 Pressure Bags 0.9 24 Output: Urine 5053 140 4800 Other: Voiding Method Indwelling Catheter Indwelling Catheter Indwelling Catheter ABP, PAP, CO, CI - Last Documented Arterial Blood Pressure 132/67 - Exam GENERAL: The patient is alert and oriented x3, not in any acute distress. Well developed, well nourished. HEENT: Pupils are round and equally reacting to light. EOMI. No scleral icterus. No conjunctival pallor. Normocephalic, atraumatic. No pharyngeal erythema. No thyromegaly. CARDIOVASCULAR: S1 and S2 present. No murmurs, rubs, or gallops. -PULMONARY: Chest is clear to auscultation, no crackles. No wheezing ABDOMEN: Soft, nontender, nondistended, normoactive bowel sounds. No palpable organomegaly. MUSCULOSKELETAL: No joint swelling or deformity. -EXTREMITIES: No cyanosis, clubbing,. Bilateral pitting leg edema NEUROLOGICAL: Gross neurological examination did not reveal any focal deficits. SKIN: No rashes. no petechiae. - Labs CBC & Chem 7: 07/03/20 04:25 07/04/20 07:25 Labs: Abnormal Lab Results - Last 24 Hours (Table) 07/03/20 07/03/20 07/04/20 Range/Units 17:28 20:29 07:25 Chloride 95 L (98-107) mmol/L Carbon Dioxide 51 H* (22-30) mmol/L BUN 45 H (9-20) mg/dL Creatinine 1.72 H (0.66-1.25) mg/dL POC Glucose (mg/dL) 150 H 182 H (75-99) mg/dL 07/04/20 Range/Units 11:39 Chloride (98-107) mmol/L Carbon Dioxide (22-30) mmol/L BUN (9-20) mg/dL Creatinine (0.66-1.25) mg/dL POC Glucose (mg/dL) 129 H (75-99) mg/dL Assessment and Plan Assessment: -acute on chronic hypercapnic respiratory failure: Secondary to obesity hypoventilation syndrome with bronchitis that may be some COPD exacerbation patient will be continued on doxycycline and the steroids for now -congestive heart failure chronic diastolic dysfunction with possible mild acute exacerbationpatient was started on Lasix drip and patient has improvement in kidney function after Lasix -contraction alkalosis -moderate pulmonary hypertension -Morbid obesity -COPD with acute exacerbation -bilateral chronic venous stasis -Chronic kidney disease stage III baseline creatinine of around 1.8 , patient had acute renal failure secondary to prerenal azotemia from heart failure improved with Lasix. -Respiratory acidosis secondary to assessment #1improved now -chronic A. fib on anticoagulation which will be resumed -Hyperlipidemia -Hypertension
[2020-07-04 17:08] LABS: Glucose,Whole Blood 140 mg/dL (75-99)
[2020-07-04 20:19] LABS: Glucose,Whole Blood 180 mg/dL (75-99)
[2020-07-04] MEDS: ATORVASTATIN 10 MG TAB PO SCH (20:29)
[2020-07-04] MEDS: CYANOCOBALAMIN 500 MCG TAB PO SCH (20:29)
[2020-07-04] MEDS: FOLIC ACID 1 MG TAB PO SCH (20:29)
[2020-07-04] MEDS: ALPRAZolam 0.5 MG TAB PO PRN (23:15)
[2020-07-05 06:55] VITALS: BP 117/76; RESP 18; TEMP 97.8
[2020-07-05 07:03] LABS: Glucose,Whole Blood 103 mg/dL (75-99)
[2020-07-05] MEDS: IPRATROPIUM-ALBUTEROL 3 ML NEB INHALATION SCH ×2 (07:18→10:48)
[2020-07-05] MEDS: allopurinoL 300 MG TAB PO SCH (08:11)
[2020-07-05] MEDS: PANTOPRAZOLE 40 MG TABLET PO SCH (08:11)
[2020-07-05] MEDS: METOPROLOL TARTRATE 50 MG TAB PO SCH (08:12)
[2020-07-05] MEDS: DABIGATRAN 150 MG CAP PO SCH (08:13)
[2020-07-05] MEDS: PREGABALIN 100 MG CAP PO SCH (08:14)
[2020-07-05] MEDS: ACETAMINOPHEN TAB 325 MG TAB PO SCH (08:16)
[2020-07-05] MEDS: ASPIRIN 81 MG PO SCH (08:19)
[2020-07-05] MEDS: INSULIN ASPART (NovoLOG) 100 UNIT/ML VIAL SQ SCH ×2 (08:21→11:57)
[2020-07-05] MEDS ORDERED: FUROSEMIDE 10 MG/ML 10 ML VIAL IV SCH (09:00)
[2020-07-05 10:20] LABS: Calcium 9.6 mg/dL (8.4-10.2); Potassium 3.9 mmol/L (3.5-5.1)
[2020-07-05 11:00] VITALS: PULSE 84
[2020-07-05] MEDS ORDERED: HYDROCORTISONE 1% OINT 28.35 GM TUBE TOPICAL PRN (11:00)
--- NOTE | 2020-07-05 11:14 | P.DS ---
Providers Date of admission: 06/26/20 11:43 Attending physician: Elizabeth Greenwood Consults: 06/26/20 11:28 Consult Physician Routine Consulting Provider: Luh Fernandez Consult Reason/Comments: dyspnea Do you want consulting provider notified?: Yes 06/26/20 13:32 Consult Physician Routine Consulting Provider: Gabriela Gusman Consult Reason/Comments: Renal Failure Do you want consulting provider notified?: Yes Primary care physician: [facility] Course: Diagnoses: -acute on chronic hypercapnic respiratory failure: Secondary to obesity hypoventilation syndrome with bronchitis -congestive heart failure chronic diastolic dysfunction with possible mild acute exacerbation -contraction alkalosis -moderate pulmonary hypertension -Fluid overload -Morbid obesity -COPD with mild acute exacerbation -bilateral chronic venous stasis -Chronic kidney disease stage III baseline creatinine of around 1.8 -chronic A. fib on anticoagulation which will be resumed -Hyperlipidemia -Hypertension Hospital course: 59-year-old male past medical history of COPD, heart failure, atrial fibrillation, diabetes mellitus, hypertension, hyperlipidemia, osteoarthritis, sleep apnea on CPAP/BiPAP, he was living in [facility], nonambulatory at baseline for 6 months and more as per patient. Presents because of dyspnea. Found to have acute COPD exacerbation with acute hypoxic and hypercapnic res piratory failure with acute kidney injury, patient is and on history of chronic hypoxic respiratory failure with obstructive sleep apnea and obesity hypoventilation syndrome which contributed to his worsening condition. Also he has history of chronic kidney disease is 2-3. Patient was found with fluid overload and he was been evaluated by observer gravity prospecting/critical care physician and safety pin assembling machine operator, patient first treated with Lasix drip and switched later to IV Lasix and Diamox was added. Patient lost significant weight from 204.95 kg on admission down to 191.3 upon discharge. His ejection fraction was about 50%, d- dimer was negative by 0.43. And his oxygen requirement dropped to 3-4 L via nasal cannula. His breathing more easily. No chest pain on the day of discharge. No abdominal or urinary complaints. His leg swelling is improved. And patient was cleared for discharge by both pulmonary and nephrology service. as per Dr. Gusman recommendation, Stop Lasix upon discharge and continue with Demadex to 50 mg twice a day for 3 days and then stop. Then patient will need to repeat labs including basic metabolic panel and magnesium in 3-4 days Also patient has mild facial rash from CPAP machine mask, hydrocortisone 1% is prescribed for him to the face for 2 days and then to be reevaluated by the ECF physician patient will be discharged on oxygen via nasal cannula at 3-4 Problems and management plan were discussed with the patient and he verbalized understanding and acceptance Patient was found stable and can be discharged home however he needs follow-up as an outpatient. Patient was instructed to follow up with PCP within one week and patient agrees. Patient also instructed to follow up with safety pin assembling machine operator Dr. Gusman and her nurse practitioner andwith Dr. Fernandez, see discharge instructions Gen: patient is a AAOx3, no distress. Morbidly obese CVS: S1-S2, RRR, no murmur Lungs: B/L CTA, no wheezing Abdomen: soft, no distention, no tenderness, positive bowel sounds Extremity: Mild bilateral leg edema . No induration Time spent more than 35 minutes Plan - Discharge Summary Discharge Rx Participant: Yes New Discharge Prescriptions: New acetaZOLAMIDE [Diamox] 250 mg PO BID 3 Days #6 tablet Hydrocortisone Oint [Hydrocortisone 1% Oint] 1 applic TOPICAL BID PRN 1 Days applic PRN Reason: Skin Irritation INSULIN ASPART (NovoLOG) [NovoLOG (formulary)] 0 unit SQ ACHS vial ALPRAZolam [Xanax] 0.5 mg PO HS PRN #2 tab PRN Reason: Anxiety Continue Fluticasone/Salmeterol [Advair 250-50 Diskus] 1 puff INHALATION RT-BID Simvastatin [Zocor] 20 mg PO HS Aspirin [Adult Low Dose Aspirin EC] 81 mg PO DAILY Nystatin 100,000Unit/gm Cream [Mycostatin Cream] 1 applic TOPICAL BID Dabigatran [Pradaxa] 150 mg PO BID Albuterol Sulfate [Ventolin HFA] 1 puff INHALATION RT-Q4H PRN PRN Reason: Shortness Of Breath Or Wheezing Allopurinol [Zyloprim] 300 mg PO DAILY Ferrous Sulfate [Iron (65 MG Elemental)] 325 mg PO DAILY Folic Acid 0.4 mg PO HS Ipratropium-Albuterol Nebulize [Duoneb 0.5 mg-3 mg/3 ml Soln] 3 ml INHALATION RT-TID Lactulose [Cephulac] 20 gm PO BID Magnesium Hydroxide [Milk of Magnesia] 2,400 mg PO DAILY PRN PRN Reason: Constipation Metoprolol Tartrate [Lopressor] 50 mg PO TID Omeprazole [PriLOSEC] 20 mg PO DAILY Cyanocobalamin [Vitamin B-12] 500 mcg PO HS Pregabalin [Lyrica] 100 mg PO BID 3 Days #6 cap Changed Acetaminophen Tab [Tylenol] 650 mg PO Q8H PRN #0 PRN Reason: Pain Discontinued traZODone HCL [Desyrel] 50 mg PO HS Furosemide [Lasix] 40 mg PO BID@0900,1400 Loratadine [Claritin] 10 mg PO DAILY traMADol HCL [Ultram] 50 mg PO Q6HR PRN PRN Reason: Pain Discharge Medication List Fluticasone/Salmeterol [Advair 250-50 Diskus] 1 puff INHALATION RT-BID 02/10/16 [History] Simvastatin [Zocor] 20 mg PO HS 02/10/16 [History] Aspirin [Adult Low Dose Aspirin EC] 81 mg PO DAILY 02/03/19 [History] Dabigatran [Pradaxa] 150 mg PO BID 11/17/19 [History] Nystatin 100,000Unit/gm Cream [Mycostatin Cream] 1 applic TOPICAL BID 11/17/19 [History] Albuterol Sulfate [Ventolin HFA] 1 puff INHALATION RT-Q4H PRN 06/26/20 [History] Allopurinol [Zyloprim] 300 mg PO DAILY 06/26/20 [History] Cyanocobalamin [Vitamin B-12] 500 mcg PO HS 06/26/20 [History] Ferrous Sulfate [Iron (65 MG Elemental)] 325 mg PO DAILY 06/26/20 [History] Folic Acid 0.4 mg PO HS 06/26/20 [History] Ipratropium-Albuterol Nebulize [Duoneb 0.5 mg-3 mg/3 ml Soln] 3 ml INHALATION RT-TID 06/26/20 [History] Lactulose [Cephulac] 20 gm PO BID 06/26/20 [History] Magnesium Hydroxide [Milk of Magnesia] 2,400 mg PO DAILY PRN 06/26/20 [History] Metoprolol Tartrate [Lopressor] 50 mg PO TID 06/26/20 [History] Omeprazole [PriLOSEC] 20 mg PO DAILY 06/26/20 [History] ALPRAZolam [Xanax] 0.5 mg PO HS PRN #2 tab 07/05/20 [Rx] Acetaminophen Tab [Tylenol] 650 mg PO Q8H PRN #0 07/05/20 [Rx] Hydrocortisone Oint [Hydrocortisone 1% Oint] 1 applic TOPICAL BID PRN 1 Days applic 07/05/20 [Rx] INSULIN ASPART (NovoLOG) [NovoLOG (formulary)] 0 unit SQ ACHS vial 07/05/20 [Rx] Pregabalin [Lyrica] 100 mg PO BID 3 Days #6 cap 07/05/20 [Rx] acetaZOLAMIDE [Diamox] 250 mg PO BID 3 Days #6 tablet 07/05/20 [Rx] Follow up Appointment(s)/Referral(s): Dejon Watson MD [Primary Care Provider] - 1-2 days (At [facility]) Natanael Delgadillo [facility] [REFERRING] - 07/31/20 11:00 am (PEDODONTIST with , nephrology) Giacomo Lucas DO [STAFF PHYSICIAN] - 1 Week Luh Fernandez MD [STAFF PHYSICIAN] - 07/25/20 10:30 am Activity/Diet/Wound Care/Special Instructions: Clear for d/c from Dr Gusman- diamox 250 bid x 3 days then d/c Lasix 60 am and 40pm labs in 3-4 days Discharge Disposition: TRANSFER TO SNF/F
[2020-07-05] MEDS: FERROUS SULFATE 325 MG TAB PO SCH (11:56)
[2020-07-05] MEDS: NYSTATIN 100,000UNIT/GM CREAM 30 GM TUBE TOPICAL SCH (11:57)
[2020-07-05 11:58] LABS: Glucose,Whole Blood 120 mg/dL (75-99)
--- NOTE | 2020-07-05 14:51 | PN ---
PROGRESS NOTE Patient is seen for followup for acute kidney injury and severe volume overload. The patient's Lasix was held secondary to worsening metabolic alkalosis. This has improved. He is currently being discharged. PHYSICAL EXAMINATION: Patient is comfortable. Blood pressure 117/76, heart rate 84 per minute, he is afebrile. Examination of the heart S1, S2. Examination of the lungs, bilateral breath sounds are heard. Abdomen is soft. Morbidly obese. Examination of the lower extremities, chronic skin changes. Bilateral extremities are wrapped. Edema is significantly improved. LABS: Show sodium 142, potassium 3.9, CO2 is 47, BUN 43, creatinine 1.63. ASSESSMENT: 1. Acute kidney injury, cardiorenal, currently improved, maintain patient on Lasix 60 and 40 as outpatient. Continue Diamox for another 2-3 days. 2. Metabolic alkalosis, now improved. 3. Hypokalemia. 4. Morbid obesity. 5. Nephrosclerosis, baseline creatinine about 1.5, NKF stage 3. PLAN: Patient can be discharged from nephrology standpoint. Continue Diamox for 2-3 days. Maintain Lasix 60 a.m. and 40 mg p.m. Repeat labs in 3-4 days as outpatient. MMODL / IJN: [id number] /
== END 2020-07-05 13:10 | DRG 205 ==
LOC: EC 09:18 → 1SOBS 11:43 → OBSVTOIN 11:43 → 4SSUR 12:01 → 2SICU 14:46 → 4SSUR 07-03 17:55
PROVIDERS: ADMIT Internal Medicine; ATTEND Internal Medicine
PROC: 5A09557 Assistance with Respiratory Ventilation, Greater than 96 Consecutive Hours, Continuous Positive Airway Pressure (ICD-10-PCS; principal; 2020-06-26)
PROC: 4A133B1 Monitoring of Arterial Pressure, Peripheral, Percutaneous Approach (ICD-10-PCS; 2020-06-26)
PROC: 4A133J1 Monitoring of Arterial Pulse, Peripheral, Percutaneous Approach (ICD-10-PCS; 2020-06-26)
PROC: 03HY32Z Insertion of Monitoring Device into Upper Artery, Percutaneous Approach (ICD-10-PCS; 2020-06-26)
DX: E66.2 Morbid (severe) obesity with alveolar hypoventilation (principal); J96.22 Acute and chronic respiratory failure with hypercapnia; J96.21 Acute and chronic respiratory failure with hypoxia; I50.33 Acute on chronic diastolic (congestive) heart failure; I13.0 Hypertensive heart and chronic kidney disease with heart failure and stage 1 through stage 4 chronic kidney disease, or unspecified chronic kidney disease; Z68.43 Body mass index [BMI] 50.0-59.9, adult; J44.1 Chronic obstructive pulmonary disease with (acute) exacerbation; E87.4 Mixed disorder of acid-base balance; I48.20 Chronic atrial fibrillation, unspecified; N17.9 Acute kidney failure, unspecified; L97.919 Non-pressure chronic ulcer of unspecified part of right lower leg with unspecified severity; J98.11 Atelectasis; K21.9 Gastro-esophageal reflux disease without esophagitis; E78.5 Hyperlipidemia, unspecified; M19.90 Unspecified osteoarthritis, unspecified site; M10.9 Gout, unspecified; E11.22 Type 2 diabetes mellitus with diabetic chronic kidney disease; E11.40 Type 2 diabetes mellitus with diabetic neuropathy, unspecified; F41.9 Anxiety disorder, unspecified; Z20.828 Contact with and (suspected) exposure to other viral communicable diseases; I44.7 Left bundle-branch block, unspecified; I27.29 Other secondary pulmonary hypertension; N18.3 Chronic kidney disease, stage 3 (moderate); I87.8 Other specified disorders of veins; T50.2X5A Adverse effect of carbonic-anhydrase inhibitors, benzothiadiazides and other diuretics, initial encounter; I27.81 Cor pulmonale (chronic); E87.6 Hypokalemia; I07.1 Rheumatic tricuspid insufficiency; Z79.01 Long term (current) use of anticoagulants; Z79.82 Long term (current) use of aspirin; Z79.899 Other long term (current) drug therapy; Z86.14 Personal history of Methicillin resistant Staphylococcus aureus infection; Z90.89 Acquired absence of other organs; Z98.890 Other specified postprocedural states; Z87.891 Personal history of nicotine dependence; Z83.3 Family history of diabetes mellitus; Z82.62 Family history of osteoporosis; Z82.5 Family history of asthma and other chronic lower respiratory diseases; Z82.49 Family history of ischemic heart disease and other diseases of the circulatory system; Z98.84 Bariatric surgery status
CPT/HCPCS: 36415; 36600; 71045; 71046; 80048; 80053; 81001; 82728; 82805; 83036; 83605; 83615; 83735; 83880; 84145; 85025; 85027; 85379; 85610; 85730; 86140; 87040; 93005; 93970; 94640; 94660; 96374; 99291

== ENCOUNTER 2020-07-07 22:05 | Inpatient (IN) | payer MEDICARE, OTHER ==
--- NOTE | 2020-07-07 22:48 | ED ---
SOB HPI - General Chief Complaint: Shortness of Breath Stated Complaint: SOB Time Seen by Provider: 07/07/20 22:33 Source: patient, EMS Mode of arrival: EMS Limitations: no limitations - History of Present Illness Initial Comments: Arnold is a morbidly obese 59-year-old male with extensive past medical history who presents the ER today via EMS from his [facility] for evaluation of hypoxia. Patient has a history of COPD and is oxygen dependent at 2 L, has a history of congestive heart failure. He reports that throughout the day today his oxygen levels have been low, caregivers at his [facility]dc increased his oxygen from 3 L to 4 with only minimal improvement which time EMS was contacted for transport to the hospital. Patient denies any chest pain or palpitations or shortness of breath. He does report an episode of nausea earlier in the day but no vomiting and that resolved without treatment. Denies recent illness, fevers chills nausea, vomiting cough or chest pain. - Related Data Home Medications Medication Instructions Recorded Confirmed Fluticasone/Salmeterol [Advair 1 puff INHALATION RT-BID 02/10/16 06/26/20 250-50 Diskus] Simvastatin [Zocor] 20 mg PO HS 02/10/16 06/26/20 Aspirin [Adult Low Dose Aspirin EC] 81 mg PO DAILY 02/03/19 06/26/20 Dabigatran [Pradaxa] 150 mg PO BID 11/17/19 06/26/20 Nystatin 100,000Unit/gm Cream 1 applic TOPICAL BID 11/17/19 06/26/20 [Mycostatin Cream] Albuterol Sulfate [Ventolin HFA] 1 puff INHALATION RT-Q4H PRN 06/26/20 06/26/20 Allopurinol [Zyloprim] 300 mg PO DAILY 06/26/20 06/26/20 Cyanocobalamin [Vitamin B-12] 500 mcg PO HS 06/26/20 06/26/20 Ferrous Sulfate [Iron (65 MG 325 mg PO DAILY 06/26/20 06/26/20 Elemental)] Folic Acid 0.4 mg PO HS 06/26/20 06/26/20 Ipratropium-Albuterol Nebulize 3 ml INHALATION RT-TID 06/26/20 06/26/20 [Duoneb 0.5 mg-3 mg/3 ml Soln] Lactulose [Cephulac] 20 gm PO BID 06/26/20 06/26/20 Magnesium Hydroxide [Milk of 2,400 mg PO DAILY PRN 06/26/20 06/26/20 Magnesia] Metoprolol Tartrate [Lopressor] 50 mg PO TID 06/26/20 06/26/20 Omeprazole [PriLOSEC] 20 mg PO DAILY 06/26/20 06/26/20 Previous Rx's Medication Instructions Recorded ALPRAZolam [Xanax] 0.5 mg PO HS PRN #2 tab 07/05/20 Acetaminophen Tab [Tylenol] 650 mg PO Q8H PRN #0 07/05/20 Hydrocortisone Oint 1 applic TOPICAL BID PRN 1 Days 07/05/20 [Hydrocortisone 1% Oint] applic INSULIN ASPART (NovoLOG) [NovoLOG 0 unit SQ ACHS vial 07/05/20 (formulary)] Pregabalin [Lyrica] 100 mg PO BID 3 Days #6 cap 07/05/20 acetaZOLAMIDE [Diamox] 250 mg PO BID 3 Days #6 tablet 07/05/20 Allergies Allergy/AdvReac Type Severity Reaction Status Date / Time No Known Allergies Allergy Verified 06/26/20 10:39 Review of Systems ROS Statement: Those systems with pertinent positive or pertinent negative responses have been documented in the HPI. ROS Other: All systems not noted in ROS Statement are negative. Past Medical History Past Medical History: Atrial Fibrillation, Heart Failure, COPD, Diabetes Mellitus, GERD/Reflux, Hyperlipidemia, Hypertension, Neurologic Disorder, Osteoarthritis (OA), Sleep Apnea/CPAP/BIPAP Additional Past Medical History / Comment(s): NIDDM, bilateral lower leg and feet neuropathy, gout-travels everywhere per pt History of Any Multi-Drug Resistant Organisms: MRSA Date of last positivie culture/infection: 2005 or 2007 per pt-tx while pt lived in [place] MDRO Source:: Low back Past Surgical History: Adenoidectomy, Tonsillectomy Additional Past Surgical History / Comment(s): 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 Past Anesthesia/Blood Transfusion Reactions: No Reported Reaction Past Psychological History: Anxiety Smoking Status: Former smoker Past Alcohol Use History: None Reported, Rare Past Drug Use History: None Reported, Marijuana - Past Family History Father Family Medical History: Coronary Artery Disease (CAD), Diabetes Mellitus Additional Family Medical History / Comment(s): Father had heart disease. He at age 74 of possible a ME-pt not sure. Mother Family Medical History: Congestive Heart Failure (CHF), COPD, Coronary Artery Disease (CAD) Additional Family Medical History / Comment(s): Mother had heart problems. She at age 72 yrs. She had osteoporosis. Brother(s) Family Medical History: No Reported History Sister(s) Family Medical History: Diabetes Mellitus Daughter(s) Family Medical History: No Reported History Son(s) Family Medical History: No Reported History General Exam - General Exam Comments Initial Comments: Physical Exam GENERAL: Morbidly obese HENT: Normocephalic, Atraumatic. EYES: PERRL, EOMI PULMONARY: Decrease breath sounds bilateral bases CARDIOVASCULAR: Tachycardic, irregularly irregular ABDOMEN: Obese SKIN: Chronic venous stasis bilateral lower extremities with profound edema, there is oozing from lower extremities : Deferred NEUROLOGIC: Patient is alert and oriented x3. Moving all extremities spontaneously MUSCULOSKELETAL: Range of motion limited by patient's obesity and bedridden status PSYCHIATRIC: Normal psychiatric evaluation. Limitations: no limitations Course Vital Signs 07/07/20 07/07/20 22:09 23:19 Temperature 98.6 F Pulse Rate 101 H 104 H Respiratory 18 17 Rate Blood Pressure 128/90 115/80 O2 Sat by Pulse 93 L 94 L Oximetry Medical Decision Making - Medical Decision Making The patient was seen and evaluated, history is obtained from the patient and medical record Morbidly obese 59-year-old male with COPD and CHF history Labs were obtained An EKG is A. fib patient has a history of such Labs resulted with multiple significant abnormalities including elevated troponin, BNP elevation Chest x-ray concerning for increased fluid in the lungs Considering the patient's multiple comorbidities I do feel he warrants admission to the hospital for management of heart failure and trending of troponins patient care was discussed with Amparo the mid-level provider for [facility] hospitalist group who accepts the admission with consult to cardiology Patient typically wears CPAP at night so will be placed on Bipap due to obesity hypoventilation - Lab Data Result diagrams: 07/07/20 23:16 07/07/20 23:16 Lab Results 07/07/20 07/07/20 07/07/20 Range/Units 23:16 23:16 23:16 WBC 7.5 (3.8-10.6) k/uL RBC 4.02 L (4.30-5.90) m/uL Hgb 11.9 L (13.0-17.5) gm/dL Hct 39.9 (39.0-53.0) % MCV 99.3 (80.0-100.0) fL MCH 29.6 (25.0-35.0) pg MCHC 29.8 L (31.0-37.0) g/dL RDW 16.4 H (11.5-15.5) % Plt Count 169 (150-450) k/uL Neutrophils % 73 % Lymphocytes % 12 % Monocytes % 9 % Eosinophils % 2 % Basophils % 1 % Neutrophils # 5.5 (1.3-7.7) k/uL Lymphocytes # 0.9 L (1.0-4.8) k/uL Monocytes # 0.7 (0-1.0) k/uL Eosinophils # 0.2 (0-0.7) k/uL Basophils # 0.0 (0-0.2) k/uL Hypochromasia Marked Anisocytosis Slight Macrocytosis Slight PT 12.4 H (9.0-12.0) sec INR 1.2 H (<1.2) APTT 29.5 (22.0-30.0) sec Sodium 143 (137-145) mmol/L Potassium 4.0 (3.5-5.1) mmol/L Chloride 101 (98-107) mmol/L Carbon Dioxide 37 H (22-30) mmol/L Anion Gap 5 mmol/L BUN 30 H (9-20) mg/dL Creatinine 1.35 H (0.66-1.25) mg/dL Est GFR (CKD-EPI)AfAm 66 (>60 ml/min/1.73 sqM) Est GFR (CKD-EPI)NonAf 57 (>60 ml/min/1.73 sqM) Glucose 103 H (74-99) mg/dL Plasma Lactic Acid Brandon (0.7-2.0) mmol/L Calcium 10.0 (8.4-10.2) mg/dL Total Bilirubin 1.3 (0.2-1.3) mg/dL AST 25 (17-59) U/L ALT 14 (4-49) U/L Alkaline Phosphatase 63 (38-126) U/L Troponin I (0.000-0.034) ng/mL NT-Pro-B Natriuret Pep pg/mL Total Protein 6.1 L (6.3-8.2) g/dL Albumin 3.3 L (3.5-5.0) g/dL 07/07/20 07/07/20 07/07/20 Range/Units 23:16 23:16 23:16 WBC (3.8-10.6) k/uL RBC (4.30-5.90) m/uL Hgb (13.0-17.5) gm/dL Hct (39.0-53.0) % MCV (80.0-100.0) fL MCH (25.0-35.0) pg MCHC (31.0-37.0) g/dL RDW (11.5-15.5) % Plt Count (150-450) k/uL Neutrophils % % Lymphocytes % % Monocytes % % Eosinophils % % Basophils % % Neutrophils # (1.3-7.7) k/uL Lymphocytes # (1.0-4.8) k/uL Monocytes # (0-1.0) k/uL Eosinophils # (0-0.7) k/uL Basophils # (0-0.2) k/uL Hypochromasia Anisocytosis Macrocytosis PT (9.0-12.0) sec INR (<1.2) APTT (22.0-30.0) sec Sodium (137-145) mmol/L Potassium (3.5-5.1) mmol/L Chloride (98-107) mmol/L Carbon Dioxide (22-30) mmol/L Anion Gap mmol/L BUN (9-20) mg/dL Creatinine (0.66-1.25) mg/dL Est GFR (CKD-EPI)AfAm (>60 ml/min/1.73 sqM) Est GFR (CKD-EPI)NonAf (>60 ml/min/1.73 sqM) Glucose (74-99) mg/dL Plasma Lactic Acid Brandon 1.1 (0.7-2.0) mmol/L Calcium (8.4-10.2) mg/dL Total Bilirubin (0.2-1.3) mg/dL AST (17-59) U/L ALT (4-49) U/L Alkaline Phosphatase (38-126) U/L Troponin I 0.108 H* (0.000-0.034) ng/mL NT-Pro-B Natriuret Pep 4780 pg/mL Total Protein (6.3-8.2) g/dL Albumin (3.5-5.0) g/dL - EKG Data -: EKG Interpreted by Me EKG Comments: EKG was obtained due to shortness of breath, EKG was obtained at 2210, rate is 107 rhythm is narrow complex irregularly irregular tachycardia consistent with atrial fibrillation with RVR, QRS [address] elevations or depressions no evidence of acute infarction. Disposition Clinical Impression: Congestive heart failure, Elevated troponin, Pulmonary edema, COPD (chronic obstructive pulmonary disease), Obesity Disposition: ADMITTED IP TO THIS HOSP Condition: Serious
--- NOTE | 2020-07-07 23:26 | XR ---
EXAMINATION TYPE: XR chest 1V portable DATE OF EXAM: 07/07/2020 COMPARISON: 07/02/2020 HISTORY: Short of breath TECHNIQUE: 2 views FINDINGS: Heart is enlarged. There is mild pulmonary congestion. There are no hilar masses. Bony thor ax is intact. IMPRESSION: Moderate cardiomegaly with some pulmonary vascular congestion consistent with congestive heart failure. Pulmonary congestion is improved slightly compared to old exam.
[2020-07-07 23:33] LABS: Anisocytosis Slight; Basophils % (A) 1 %; Eosinophils # (A) 0.2 k/uL (0-0.7); Eosinophils % (A) 2 %; HCT 39.9 % (39.0-53.0); HGB 11.9 gm/dL (13.0-17.5); Hypochromasia Marked; Lymphocytes # (A) 0.9 k/uL (1.0-4.8); Lymphocytes % (A) 12 %; MCH 29.6 pg (25.0-35.0); MCHC 29.8 g/dL (31.0-37.0); MCV 99.3 fL (80.0-100.0); Macrocytosis Slight; Mean Platelet Volume 8.9; Monocytes # (A) 0.7 k/uL (0-1.0); Monocytes % (A) 9 %; Neutrophils # (A) 5.5 k/uL (1.3-7.7); Neutrophils % (A) 73 %; Platelet Count 169 k/uL (150-450); RBC 4.02 m/uL (4.30-5.90); RDW 16.4 % (11.5-15.5); WBC 7.5 k/uL (3.8-10.6)
[2020-07-07 23:41] LABS: INR 1.2 (<1.2); Partial Thromboplastin Time 29.5 sec (22.0-30.0); Prothrombin Time 12.4 sec (9.0-12.0)
[2020-07-07 23:42] LABS: Albumin 3.3 g/dL (3.5-5.0); Total Bilirubin 1.3 mg/dL (0.2-1.3); Total Protein 6.1 g/dL (6.3-8.2)
[2020-07-08] MEDS ORDERED: HEPARIN SODIUM,PORCINE 5,000 UNIT/ML 1 ML VIAL IV PRN (00:57)
[2020-07-08] MEDS ORDERED: HEPARIN SODIUM,PORCINE 5,000 UNIT/ML 1 ML VIAL IV ONE (00:57)
[2020-07-08] MEDS ORDERED: HEPARIN SOD,PORK IN 0.45% NACL 25,000 UNIT in 0.45% NACL 1 250ML.BAG IV SCH (01:00)
[2020-07-08] MEDS: FUROSEMIDE 10 MG/ML 4 ML VIAL IV SCH ×3 (02:18→18:03)
[2020-07-08 06:29] LABS: Glucose,Whole Blood 112 mg/dL (75-99)
[2020-07-08] MEDS: IPRATROPIUM-ALBUTEROL 3 ML NEB INHALATION SCH ×3 (07:43→20:01)
[2020-07-08] MEDS: acetaZOLAMIDE 250 MG TAB PO SCH ×2 (08:53→22:48)
[2020-07-08] MEDS: LACTULOSE 20 GM/30 ML CUP PO SCH ×2 (08:53→22:49)
[2020-07-08] MEDS: METOPROLOL TARTRATE 50 MG TAB PO SCH ×3 (08:53→22:48)
[2020-07-08] MEDS: PREGABALIN 100 MG CAP PO SCH ×2 (08:53→22:46)
[2020-07-08] MEDS: ASPIRIN 81 MG PO SCH (08:53)
--- NOTE | 2020-07-08 10:41 | P.CRDCN ---
History of Present Illness Consult date: 07/08/20 History of present illness: CHIEF COMPLAINT: Elevated troponins, CHF HISTORY OF PRESENT ILLNESS: 59-year-old male with history of atrial fibrillation, congestive heart failure, COPD, diabetes mellitus, chronic kidney disease, hypertension, hyperlipidemia, home O2 at 3 L, and obstructive sleep apnea who was transferred from [facility] secondary to hypoxia. Patient follows outpatient with Dr. White. Patient examined this morning at the bedside. Patient states his oxygen saturation was 89% on 3 L yesterday so the staff at the [facility] increased his oxygen to 4L. He denies ever feeling short of breath. He states "they freaked out and sent me over here". Patient reports lower extremity edema but states it is at his baseline. He denies chest pain or pressure. DIAGNOSTICS: EKG reveals atrial fibrillation Chest xray moderate cardiomegaly with some pulmonary vascular congestion consistent with congestive heart failure. Pulmonary congestion is slightly improved compared with old exam. Laboratory data: WBC 7.5. Hemoglobin 11.9. Platelet count 169. Sodium 143. Potassium 4.0. BUN 30. Creatinine 1.35. Lactic acid 1.1. BNP 4780. Troponin 0.108. 0.099. Current home cardiac medications include Diamox 250 mg twice a day, Zocor 20 mg daily, Lopressor 50 mg 3 times a day, aspirin 81 mg daily, Pradaxa 150 mg twice a day REVIEW OF SYSTEMS: CONSTITUTIONAL: Denies fever or chills. HEENT: Denies blurred vision, vision changes, or eye pain. Denies hemoptysis CARDIOVASCULAR: Denies chest pain, orthopnea, PND or palpitations RESPIRATORY: No shortness of breath. GASTROINTESTINAL: Denies abdominal pain. Denies nausea or vomiting. HEMATOLOGIC: Denies bleeding disorders. GENITOURINARY: Denies any blood in urine. SKIN: Denies pruitis. Denies rash. PHYSICAL EXAM: VITAL SIGNS: Reviewed. GENERAL: Well-developed in no acute distress. HEENT: Head is normocephalic. Pupils are equal, round. Sclerae anicteric. Mucous membranes of the mouth are moist. Neck supple. No JVD or thyromegaly LUNGS: Respirations even and unlabored. Lungs essentially clear to auscultation bilaterally. HEART: Irregular rate and rhythm. S1 and S2 heard. ABDOMEN: Soft. Nontender. EXTREMITIES: Normal range of motion. No clubbing or cyanosis. Peripheral pulses intact. Bilateral lower extremity edema-marga wraps to bilateral legs NEUROLOGIC: Awake and alert. Oriented x 3. ASSESSMENT: Acute exacerbation of diastolic congestive heart failure, EF 50-55%, BNP 4780 Elevated troponins, no evidence of acute coronary syndrome COPD with home O2 use Persistent atrial fibrillation Hyperlipidemia Hypertension Chronic kidney disease Diabetes mellitus, type II Obstructive sleep apnea with CPAP use Morbid obesity BMI 54.5 PLAN: Continue IV lasix Monitor kidney function Daily weights Accurate I&O Discontinue IV heparin Resume Pradaxa Obtain 2-D echo to assess cardiac structure and function Nurse practitioner note has been reviewed by physician. Signing provider agrees with the documented findings, assessment, and plan of care. Past Medical History Past Medical History: Atrial Fibrillation, Heart Failure, COPD, Diabetes Mellitus, GERD/Reflux, Hyperlipidemia, Hypertension, Neurologic Disorder, Osteoarthritis (OA), Sleep Apnea/CPAP/BIPAP Additional Past Medical History / Comment(s): NIDDM, bilateral lower leg and feet neuropathy, gout-travels everywhere per pt History of Any Multi-Drug Resistant Organisms: MRSA Date of last positivie culture/infection: 2005 or 2007 per pt-tx while pt lived in [place] MDRO Source:: Low back Past Surgical History: Adenoidectomy, Tonsillectomy Additional Past Surgical History / Comment(s): Pyloric stenosis when he was an , bilateral knee arthroscopies, 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 Past Anesthesia/Blood Transfusion Reactions: No Reported Reaction Past Psychological History: Anxiety Smoking Status: Former smoker Past Alcohol Use History: None Reported, Rare Past Drug Use History: None Reported, Marijuana - Past Family History Father Family Medical History: Coronary Artery Disease (CAD), Diabetes Mellitus Additional Family Medical History / Comment(s): Father had heart disease. He at age 74 of possible a [place]-pt not sure. Mother Family Medical History: Congestive Heart Failure (CHF), COPD, Coronary Artery Disease (CAD) Additional Family Medical History / Comment(s): Mother had heart problems. She at age 72 yrs. She had osteoporosis. Brother(s) Family Medical History: No Reported History Sister(s) Family Medical History: Diabetes Mellitus Daughter(s) Family Medical History: No Reported History Son(s) Family Medical History: No Reported History Medications and Allergies Home Medications Medication Instructions Recorded Confirmed Type Fluticasone/Salmeterol [Advair 1 puff INHALATION RT-BID 02/10/16 06/26/20 History 250-50 Diskus] Simvastatin [Zocor] 20 mg PO HS 02/10/16 06/26/20 History Aspirin [Adult Low Dose Aspirin EC] 81 mg PO DAILY 02/03/19 06/26/20 History Dabigatran [Pradaxa] 150 mg PO BID 11/17/19 06/26/20 History Nystatin 100,000Unit/gm Cream 1 applic TOPICAL BID 11/17/19 06/26/20 History [Mycostatin Cream] Albuterol Sulfate [Ventolin HFA] 1 puff INHALATION RT-Q4H PRN 06/26/20 06/26/20 History Allopurinol [Zyloprim] 300 mg PO DAILY 06/26/20 06/26/20 History Cyanocobalamin [Vitamin B-12] 500 mcg PO HS 06/26/20 06/26/20 History Ferrous Sulfate [Iron (65 MG 325 mg PO DAILY 06/26/20 06/26/20 History Elemental)] Folic Acid 0.4 mg PO HS 06/26/20 06/26/20 History Ipratropium-Albuterol Nebulize 3 ml INHALATION RT-TID 06/26/20 06/26/20 History [Duoneb 0.5 mg-3 mg/3 ml Soln] Lactulose [Cephulac] 20 gm PO BID 06/26/20 06/26/20 History Magnesium Hydroxide [Milk of 2,400 mg PO DAILY PRN 06/26/20 06/26/20 History Magnesia] Metoprolol Tartrate [Lopressor] 50 mg PO TID 06/26/20 06/26/20 History Omeprazole [PriLOSEC] 20 mg PO DAILY 06/26/20 06/26/20 History ALPRAZolam [Xanax] 0.5 mg PO HS PRN #2 tab 07/05/20 Rx Acetaminophen Tab [Tylenol] 650 mg PO Q8H PRN #0 07/05/20 06/26/20 Rx Hydrocortisone Oint 1 applic TOPICAL BID PRN 1 Days 07/05/20 Rx [Hydrocortisone 1% Oint] applic INSULIN ASPART (NovoLOG) [NovoLOG 0 unit SQ ACHS vial 07/05/20 Rx (formulary)] Pregabalin [Lyrica] 100 mg PO BID 3 Days #6 cap 07/05/20 Rx acetaZOLAMIDE [Diamox] 250 mg PO BID 3 Days #6 tablet 07/05/20 Rx Allergies Allergy/AdvReac Type Severity Reaction Status Date / Time No Known Allergies Allergy Verified 06/26/20 10:39 Physical Exam Vitals: Vital Signs Temp Pulse Resp BP BP Pulse Ox 07/08/20 07:53 100 07/08/20 07:45 100 07/08/20 04:00 97.5 F L 18 128/73 96 07/08/20 02:00 97.5 F L 18 131/67 95 07/07/20 23:19 104 H 17 115/80 94 L 07/07/20 22:09 98.6 F 101 H 18 128/90 93 L Intake and Output 07/07/20 07/08/20 07/08/20 22:59 06:59 14:59 Output Total 900 Balance -900 Output: Urine 900 Other: Voiding Method Indwelling Catheter Weight 190.509 kg 187.5 kg Results 07/07/20 23:16 07/07/20 23:16 Cardiac Enzymes 07/07/20 07/07/20 07/08/20 Range/Units 23:16 23:16 06:41 AST 25 (17-59) U/L Troponin I 0.108 H* 0.099 H* (0.000-0.034) ng/mL Coagulation 07/07/20 07/08/20 Range/Units 23:16 06:41 PT 12.4 H (9.0-12.0) sec APTT 29.5 47.4 H (22.0-30.0) sec CBC 07/07/20 Range/Units 23:16 WBC 7.5 (3.8-10.6) k/uL RBC 4.02 L (4.30-5.90) m/uL Hgb 11.9 L (13.0-17.5) gm/dL Hct 39.9 (39.0-53.0) % Plt Count 169 (150-450) k/uL Comprehensive Metabolic Panel 07/07/20 Range/Units 23:16 Sodium 143 (137-145) mmol/L Potassium 4.0 (3.5-5.1) mmol/L Chloride 101 (98-107) mmol/L Carbon Dioxide 37 H (22-30) mmol/L BUN 30 H (9-20) mg/dL Creatinine 1.35 H (0.66-1.25) mg/dL Glucose 103 H (74-99) mg/dL Calcium 10.0 (8.4-10.2) mg/dL AST 25 (17-59) U/L ALT 14 (4-49) U/L Alkaline Phosphatase 63 (38-126) U/L Total Protein 6.1 L (6.3-8.2) g/dL Albumin 3.3 L (3.5-5.0) g/dL Current Medications Generic Name Dose Route Start Last Admin Trade Name Freq PRN Reason Stop Dose Admin Acetazolamide 250 mg 07/08/20 09:00 07/08/20 08:53 Diamox PO 250 mg BID NIKA Administration Albuterol/Ipratropium 3 ml 07/08/20 08:00 07/08/20 07:43 Duoneb 0.5 Mg-3 Mg/3 Ml Soln INHALATION 3 ml RT-TID NIKA Administration Aspirin 81 mg 07/08/20 09:00 07/08/20 08:53 Aspirin PO 81 mg DAILY NIKA Administration Atorvastatin Calcium 10 mg 07/08/20 21:00 Lipitor PO HS NIKA Furosemide 40 mg 07/08/20 02:00 07/08/20 08:53 Lasix IV 40 mg Q8H NIKA Administration Heparin Sodium (Porcine) 0 unit 07/08/20 00:57 Heparin IV PER PROTOCOL PRN Low PTT Protocol Heparin Sodium/Sodium Chloride 250 mls @ 10.002 mls/hr 07/08/20 01:00 07/08/20 01:14 25,000 unit/ Sodium Chloride IV 5.25 units/kg/hr .Q24H NIKA 10.002 mls/hr Administration Protocol 5.25 UNITS/KG/HR Lactulose 20 gm 07/08/20 09:00 07/08/20 08:53 Cephulac PO 20 gm BID NIKA Administration Metoprolol Tartrate 50 mg 07/08/20 09:00 07/08/20 08:53 Lopressor PO 50 mg TID NIKA Administration Nystatin 1 applic 07/08/20 09:00 Mycostatin Cream TOPICAL BID NIKA Pregabalin 100 mg 07/08/20 09:00 07/08/20 08:53 Lyrica PO 100 mg BID NIKA Administration Intake and Output 07/07/20 07/08/20 07/08/20 22:59 06:59 14:59 Output Total 900 Balance -900 Output: Urine 900 Other: Voiding Method Indwelling Catheter Weight 190.509 kg 187.5 kg 07/07/20 23:16 07/07/20 23:16
[2020-07-08 11:23] VITALS: BMI 54.5
[2020-07-08 11:56] LABS: Glucose,Whole Blood 109 mg/dL (75-99)
--- NOTE | 2020-07-08 13:00 | ECHOF ---
Referral Reason:lv function MEASUREMENTS -------- HEIGHT: 185.4 cm WEIGHT: 187.3 kg BP: 128/73 RVIDd: 4.9 cm (< 3.3) IVSd: 1.8 cm (0.6 - 1.1) LVIDd: 4.9 cm (3.9 - 5.3) LVPWd: 1.7 cm (0.6 - 1.1) IVSs: 2.2 cm LVIDs: 3.6 cm LVPWs: 2.0 cm LA Diam: 5.0 cm (2.7 - 3.8) LAESV Index (A-L): 54.51 ml/m Ao Diam: 3.7 cm (2.0 - 3.7) AV Cusp: 2.7 cm (1.5 - 2.6) MV EXCURSION: 19.913 mm (> 18.000) MV EF SLOPE: 70 mm/s (70 - 150) EPSS: 1.1 cm RAP: 15.00 mmHg RVSP: 61.13 mmHg FINDINGS -------- Atrial fibrillation. This was a technically good study. The left ventricular size is normal. There is severe concentric left ventricular hypertrophy. Ove rall left ventricular systolic function is mildly impaired with, an EF between 45 - 50 %. The right ventricle is severely enlarged. LA is severely dilated >40 ml/m2 The right atrium is mildly enlarged. Interatrial and interventricular septum intact. There is mild aortic valve sclerosis. Mild mitral annular calcification present. Mild mitral regurgitation is present. Moderate tricuspid regurgitation present. There is severe pulmonary hypertension. The right ventr icular systolic pressure, as measured by Doppler, is 61.13mmHg. Trace/mild (physiologic) pulmonic regurgitation. The aortic root size is normal. The inferior vena cava is dilated with no significant inspiratory collapse which is consistent estima howard right atrial pressure of >15 mmHg. There is no pericardial effusion. CONCLUSIONS -------- 1. The left ventricular size is normal. 2. There is severe concentric left ventricular hypertrophy. 3. Overall left ventricular systolic function is mildly impaired with, an EF between 45 - 50 %. 4. The right ventricle is severely enlarged. 5. LA is severely dilated >40 ml/m2 6. The right atrium is mildly enlarged. 7. There is mild aortic valve sclerosis. 8. Mild mitral annular calcification present. 9. Mild mitral regurgitation is present. 10. Moderate tricuspid regurgitation present. 11. There is severe pulmonary hypertension. 12. The right ventricular systolic pressure, as measured by Doppler, is 61.13mmHg. 13. Trace/mild (physiologic) pulmonic regurgitation. 14. The inferior vena cava is dilated with no significant inspiratory collapse which is consistent es timated right atrial pressure of >15 mmHg. 15. There is no pericardial effusion. CABLE FORMER: Alix Hayes RDCS
[2020-07-08] MEDS ORDERED: ACETAMINOPHEN TAB 325 MG TAB PO PRN (15:31)
[2020-07-08] MEDS ORDERED: MAGNESIUM HYDROXIDE 2,400 MG/10 ML CUP PO PRN (15:31)
[2020-07-08] MEDS ORDERED: ALPRAZolam 0.5 MG TAB PO PRN (15:31)
[2020-07-08] MEDS ORDERED: HYDROCORTISONE 1% OINT 28.35 GM TUBE TOPICAL PRN (15:31)
[2020-07-08] MEDS ORDERED: IPRATROPIUM-ALBUTEROL 3 ML NEB INHALATION PRN (15:32)
[2020-07-08 16:40] LABS: Glucose,Whole Blood 150 mg/dL (75-99)
[2020-07-08] MEDS: NYSTATIN 100,000UNIT/GM CREAM 30 GM TUBE TOPICAL SCH ×2 (18:02→22:49)
[2020-07-08] MEDS: DABIGATRAN 150 MG CAP PO SCH ×2 (18:02→22:48)
[2020-07-08] MEDS: INSULIN ASPART (NovoLOG) 100 UNIT/ML VIAL SQ SCH (18:02)
[2020-07-08] MEDS: SYMBICORT 80-4.5 MCG INHALER INHALATION SCH (20:02)
[2020-07-08 20:26] LABS: Glucose,Whole Blood 145 mg/dL (75-99)
[2020-07-08] MEDS ORDERED: PANTOPRAZOLE 40 MG TABLET PO SCH (21:00)
[2020-07-08] MEDS ORDERED: ATORVASTATIN 10 MG TAB PO SCH (21:00)
[2020-07-08] MEDS ORDERED: CYANOCOBALAMIN 500 MCG TAB PO SCH (21:00)
[2020-07-08] MEDS ORDERED: FOLIC ACID 1 MG TAB PO SCH (21:00)
[2020-07-08 21:06] LABS: Appearance,Urine Cloudy (Clear); Bacteria,Urine Few /hpf; Bilirubin,Urine Negative (Negative); Blood,Urine Small (Negative); Color,Urine Yellow; Glucose,Urine (UA) Negative (Negative); Hyaline Casts,Urine 17 /lpf (0-2); Ketones,Urine Negative (Negative); Leukocyte Esterase,Urine Large (Negative); Mucus,Urine Occasional /hpf; Nitrite,Urine Negative (Negative); Protein,Urine 2+ (Negative); RBC,Urine 13 /hpf (0-5); Specific Gravity,Urine 1.012 (1.001-1.035); Squamous Epithelial Cell,Urine <1 /hpf (0-4); WBC,Urine >182 /hpf (0-5)
[2020-07-08] MEDS: HYDROcodone/APAP 5-325MG 1 EACH TAB PO PRN (22:46)
--- NOTE | 2020-07-08 23:04 | HP ---
HISTORY AND PHYSICAL DATE OF SERVICE: 07/08/2020 CHIEF COMPLAINT: Shortness of breath. HISTORY OF PRESENT ILLNESS: This 59-year-old gentleman with a past medical history of atrial fibrillation, history of CHF, COPD, diabetes mellitus type 2, GERD, hypertension, hyperlipidemia, history of DJD, sleep apnea, anxiety being followed by Dr. Watson in [facility] was complaining of shortness of breath. The patient had hypoxia, the patient came to [facility]. Images in the regards to the chest x-ray showed cardiomegaly and as well as some evidence of CHF. The patient was given Lasix with some improvement. A 2D echo with Doppler was performed. Cardiology evaluation in progress. Two-D echo showed ejection fraction 45% to 50%, indicating acute on chronic systolic dysfunction, and right ventricle is severely enlarged and the was also severely enlarged. The patient also had moderate tricuspid regurgitation and severe pulmonary hypertension and the patient was admitted for further evaluation and treatment. There is no history of any fever or rigors. No history of headache, loss of consciousness, or seizures at this time. PAST MEDICAL HISTORY: Atrial ablation, CHF, COPD, diabetes mellitus, GERD, hypertension, hyperlipidemia, history of DJD, history of sleep apnea. MEDICATIONS: Medication prior to admission show home medications are: 1. Zocor. 2. NovoLog. 3. Ventolin. 4. Tylenol. 5. Xanax. 6. Prilosec. 7. Pradaxa. 8. Lyrica. 9. Lopressor. 10.Milk of magnesia. 11.DuoNeb. 12.Hydrocortisone cream. 13.Lasix. 14.Folic acid. 15.Cephulac. 16.Advair. 17.Iron. 18.Vitamin B12. 19.Diamox. 20.Aspirin. 21.Zyloprim. ALLERGIES: Allergies are none. FAMILY HISTORY: History of CAD, diabetes mellitus in the family, heart disease in the family. SOCIAL HISTORY: Previous history of smoking. No history of alcohol intake. REVIEW OF SYSTEMS: ENT: No diminished hearing or diminished vision. CARDIOVASCULAR SYSTEM: As mentioned earlier. RESPIRATORY SYSTEM: As mentioned earlier. GI: No nausea. : No dysuria. NERVOUS SYSTEM: No numbness or weakness. ALLERGY/IMMUNOLOGY: No asthma or hayfever. MUSCULOSKELETAL: As mentioned earlier. HEMATOLOGY/ONCOLOGY: No history of anemia. ENDOCRINE: As mentioned earlier. CONSTITUTIONAL: As mentioned earlier. DERMATOLOGY: Negative. RHEUMATOLOGY: Negative. PSYCHIATRY: As mentioned earlier. PHYSICAL EXAMINATION: The patient is alert and oriented x3. Pulse is 109, blood pressure 111/62, respiration 20, temperature normal 97.2, pulse ox 96% on 5 L. HEENT: Conjunctivae normal. Oral mucosa moist. NECK: No jugular venous distention. No carotid bruit. No lymph node enlargement. CARDIOVASCULAR: S1, S2 muffled. Ejection systolic murmur. RESPIRATORY: Breath sounds diminished at the bases. A few scattered rhonchi and crackles. ABDOMEN: Soft, nontender. No mass palpable. LEGS: No edema, no swelling. NERVOUS SYSTEM: Higher functions as mentioned earlier. Moves all 4 limbs. No focal motor or sensory deficits. LYMPHATICS: No lymphadenopathy of the neck, axillae or groin. SKIN: No ulcer, rash or bleeding. JOINTS: No active deforming arthropathy. LABS: WBC 7.5, hemoglobin 11.9. INR 1.2. Creatinine is 1.35. Troponin 0.108. are reviewed. EKG showed atrial fibrillation with rapid ventricular rate. ASSESSMENT: 1. Congestive heart failure acute exacerbation with acute on chronic systolic dysfunction, ejection fraction 45% to 50% with cardiomegaly. 2. Atrial fibrillation with fast ventricular rate, present on admission. 3. Acute hypoxic respiratory failure possibly secondary to congestive heart failure acute exacerbation as well as chronic obstructive pulmonary disease acute exacerbation. 4. Severe pulmonary hypertension. 5. History of congestive heart failure. 6. Diabetes mellitus type 2. 7. Gastroesophageal reflux disease. 8. Hypertension. 9. Hyperlipidemia. 10.History of degenerative joint disease. 11.History of sleep apnea. 12.History of diabetes mellitus type 2. 13.History of peripheral neuropathy. 14.Adenoidectomy. 15.Tonsillectomy. 16.History of anxiety. 17.Pyloric stenosis as an . 18.Remote history of nicotine dependence. 19.Obesity with body mass index of 54.5. RECOMMENDATIONS AND DISCUSSION: This 59-year-old gentleman who presented with multiple complex medical issues, we will monitor the patient closely, continue the current medications, continue symptomatic treatment. Will initiate Lasix. Monitor intake . Resume the home medications. Optimize bronchodilator treatment. Cardiology consultation. Guarded prognosis because of multiple complex medical issues. Limit intake to 1200 mL per 24 hours. Prognosis guarded. Further recommendations to follow. Otherwise, resume the rest of the medications. Copy forwarded to Dr. Watson who is the primary physician. SYLVIA / SANGN: [id number] / MTDD
[2020-07-09] MEDS: FUROSEMIDE 10 MG/ML 4 ML VIAL IV SCH ×2 (02:49→08:38)
[2020-07-09 06:41] LABS: Glucose,Whole Blood 109 mg/dL (75-99)
[2020-07-09 07:45] LABS: Anisocytosis Slight; Basophils % (A) 1 %; Eosinophils # (A) 0.3 k/uL (0-0.7); Eosinophils % (A) 5 %; HCT 37.7 % (39.0-53.0); Hypochromasia Marked; Lymphocytes % (A) 18 %; MCH 29.7 pg (25.0-35.0); MCHC 29.1 g/dL (31.0-37.0); MCV 102.1 fL (80.0-100.0); Macrocytosis Slight; Mean Platelet Volume 8.9; Monocytes # (A) 0.4 k/uL (0-1.0); Monocytes % (A) 7 %; Neutrophils # (A) 3.5 k/uL (1.3-7.7); Neutrophils % (A) 65 %; Platelet Count 132 k/uL (150-450); RBC 3.69 m/uL (4.30-5.90); RDW 16.2 % (11.5-15.5); WBC 5.4 k/uL (3.8-10.6)
[2020-07-09] MEDS: IPRATROPIUM-ALBUTEROL 3 ML NEB INHALATION SCH ×2 (08:14→15:06)
[2020-07-09] MEDS: SYMBICORT 80-4.5 MCG INHALER INHALATION SCH (08:15)
[2020-07-09] MEDS: acetaZOLAMIDE 250 MG TAB PO SCH (08:33)
[2020-07-09] MEDS: ASPIRIN 81 MG PO SCH (08:33)
[2020-07-09] MEDS: INSULIN ASPART (NovoLOG) 100 UNIT/ML VIAL SQ SCH ×2 (08:33→12:39)
[2020-07-09] MEDS: DABIGATRAN 150 MG CAP PO SCH (08:34)
[2020-07-09] MEDS: NYSTATIN 100,000UNIT/GM CREAM 30 GM TUBE TOPICAL SCH (08:38)
[2020-07-09] MEDS: PREGABALIN 100 MG CAP PO SCH (08:38)
[2020-07-09] MEDS: LACTULOSE 20 GM/30 ML CUP PO SCH (08:38)
[2020-07-09] MEDS: METOPROLOL TARTRATE 50 MG TAB PO SCH (08:38)
[2020-07-09] MEDS: HYDROcodone/APAP 5-325MG 1 EACH TAB PO PRN (08:48)
[2020-07-09] MEDS ORDERED: allopurinoL 300 MG TAB PO SCH (09:00)
[2020-07-09] MEDS ORDERED: FERROUS SULFATE 325 MG TAB PO SCH (09:00)
[2020-07-09 09:30] VITALS: RESP 20
--- NOTE | 2020-07-09 11:14 | P.DS ---
Providers Date of admission: 07/08/20 00:58 Attending physician: Katrina Beltran Consults: 07/08/20 00:58 Consult Physician Routine Consulting Provider: Ramo Melo Consult Reason/Comments: elevated trop, CHF Do you want consulting provider notified?: Yes, Notify in am Primary care physician: Dejon [facility] Course: Patient is a pleasant 59-year-old male with the morbid obesity sleep apnea and uses CPAP machine at home was sent in here because of shortness of breath and hypoxemia. This hypoxemia is multifactorial patient was treated for heart failure exacerbation patient was on IV Lasix patient is presently euvolemic not in heart failure exacerbation patient will be discharged back to [facility] today. Patient usually uses anywhere between 3-4 reds flags and were patient is saturating well on that oxygen patient doesn't have any JVD or pedal edema at this time. Patient had severe pulmonary hypertension. PHYSICAL EXAMINATION: GENERAL: The patient is alert and oriented x3, not in any acute distress. Morbidly obese HEENT: Pupils are round and equally reacting to light. EOMI. No scleral icterus. No conjunctival pallor. Normocephalic, atraumatic. No pharyngeal erythema. No thyromegaly. CARDIOVASCULAR: S1 and S2 present. No murmurs, rubs, or gallops. PULMONARY: Chest is clear to auscultation, no wheezing or crackles. ABDOMEN: Soft, nontender, nondistended, normoactive bowel sounds. No palpable organomegaly. MUSCULOSKELETAL: No joint swelling or deformity. EXTREMITIES: No cyanosis, clubbing, or pedal edema. NEUROLOGICAL: Gross neurological examination did not reveal any focal deficits. SKIN: No rashes. -Congestive heart failure chronic systolic dysfunction with mild acute exacerbation patient was treated for heart failure exacerbation with IV Lasix. -Acute on chronic hypoxic respiratory failure secondary to CHF exacerbation Other medical problems and hospital course please refer to documentation from Dr. Beltran from yesterday Patient Condition at Discharge: Serious Plan - Discharge Summary Discharge Rx Participant: No New Discharge Prescriptions: New Nystatin 100,000Unit/gm Cream [Mycostatin Cream] 1 applic TOPICAL BID applic Continue Fluticasone/Salmeterol [Advair 250-50 Diskus] 1 puff INHALATION RT-BID Simvastatin [Zocor] 20 mg PO HS Aspirin [Adult Low Dose Aspirin EC] 81 mg PO DAILY Dabigatran [Pradaxa] 150 mg PO BID Albuterol Sulfate [Ventolin HFA] 1 puff INHALATION RT-Q4H PRN PRN Reason: Shortness Of Breath Or Wheezing Allopurinol [Zyloprim] 300 mg PO DAILY Ferrous Sulfate [Iron (65 MG Elemental)] 325 mg PO DAILY Folic Acid 0.4 mg PO HS Ipratropium-Albuterol Nebulize [Duoneb 0.5 mg-3 mg/3 ml Soln] 3 ml INHALATION RT-Q8H PRN PRN Reason: Shortness Of Breath Lactulose [Cephulac] 20 gm PO BID Magnesium Hydroxide [Milk of Magnesia] 2,400 mg PO DAILY PRN PRN Reason: Constipation Metoprolol Tartrate [Lopressor] 50 mg PO Q8H Omeprazole [PriLOSEC] 40 mg PO HS Cyanocobalamin [Vitamin B-12] 500 mcg PO HS acetaZOLAMIDE [Diamox] 250 mg PO BID 3 Days #6 tablet Acetaminophen Tab [Tylenol] 650 mg PO Q8H PRN #0 PRN Reason: Pain Furosemide [Lasix] 60 mg PO DAILY Furosemide [Lasix] 40 mg PO DAILY Hydrocortisone Oint [Hydrocortisone 1% Oint] 1 applic TOPICAL Q6H PRN PRN Reason: irritation of abdominal folds INSULIN ASPART (NovoLOG) [NovoLOG (formulary)] 4 unit SQ AC-TID Pregabalin [Lyrica] 100 mg PO BID 3 Days #6 cap ALPRAZolam [Xanax] 0.5 mg PO HS PRN #5 tab PRN Reason: Anxiety Discharge Medication List Fluticasone/Salmeterol [Advair 250-50 Diskus] 1 puff INHALATION RT-BID 02/10/16 [History] Simvastatin [Zocor] 20 mg PO HS 02/10/16 [History] Aspirin [Adult Low Dose Aspirin EC] 81 mg PO DAILY 02/03/19 [History] Dabigatran [Pradaxa] 150 mg PO BID 11/17/19 [History] Albuterol Sulfate [Ventolin HFA] 1 puff INHALATION RT-Q4H PRN 06/26/20 [History] Allopurinol [Zyloprim] 300 mg PO DAILY 06/26/20 [History] Cyanocobalamin [Vitamin B-12] 500 mcg PO HS 06/26/20 [History] Ferrous Sulfate [Iron (65 MG Elemental)] 325 mg PO DAILY 06/26/20 [History] Folic Acid 0.4 mg PO HS 06/26/20 [History] Ipratropium-Albuterol Nebulize [Duoneb 0.5 mg-3 mg/3 ml Soln] 3 ml INHALATION RT-Q8H PRN 06/26/20 [History] Lactulose [Cephulac] 20 gm PO BID 06/26/20 [History] Magnesium Hydroxide [Milk of Magnesia] 2,400 mg PO DAILY PRN 06/26/20 [History] Metoprolol Tartrate [Lopressor] 50 mg PO Q8H 06/26/20 [History] Omeprazole [PriLOSEC] 40 mg PO HS 06/26/20 [History] Acetaminophen Tab [Tylenol] 650 mg PO Q8H PRN #0 07/05/20 [Rx] acetaZOLAMIDE [Diamox] 250 mg PO BID 3 Days #6 tablet 07/05/20 [Rx] Furosemide [Lasix] 40 mg PO DAILY 07/08/20 [History] Furosemide [Lasix] 60 mg PO DAILY 07/08/20 [History] Hydrocortisone Oint [Hydrocortisone 1% Oint] 1 applic TOPICAL Q6H PRN 07/08/20 [History] INSULIN ASPART (NovoLOG) [NovoLOG (formulary)] 4 unit SQ AC-TID 07/08/20 [History] ALPRAZolam [Xanax] 0.5 mg PO HS PRN #5 tab 07/09/20 [Rx] Nystatin 100,000Unit/gm Cream [Mycostatin Cream] 1 applic TOPICAL BID applic 07/09/20 [Rx] Pregabalin [Lyrica] 100 mg PO BID 3 Days #6 cap 07/09/20 [Rx] Follow up Appointment(s)/Referral(s): Dejon Watson MD [Primary Care Provider] - 3 Days
[2020-07-09 11:49] VITALS: BP 93/58; TEMP 98
[2020-07-09 12:17] LABS: Glucose,Whole Blood 112 mg/dL (75-99)
--- NOTE | 2020-07-09 14:16 | P.PN ---
Subjective Progress Note Date: 07/09/20 CHIEF COMPLAINT: Elevated troponins, CHF HISTORY OF PRESENT ILLNESS: Patient examined this morning at the bedside. Patient denies chest pain. Denies shortness of breath. Blood pressure 93/54. Heart rate in the 80s. Echocardiogram completed yesterday reveals ejection fraction between 45 and 50% PHYSICAL EXAM: VITAL SIGNS: Reviewed. GENERAL: Well-developed in no acute distress. HEENT: Head is normocephalic. Pupils are equal, round. Sclerae anicteric. Mucous membranes of the mouth are moist. Neck supple. No JVD or thyromegaly LUNGS: Respirations even and unlabored. Lungs essentially clear to auscultation bilaterally. HEART: Irregular rate and rhythm. S1 and S2 heard. ABDOMEN: Soft. Nontender. EXTREMITIES: Normal range of motion. No clubbing or cyanosis. Peripheral pulses intact. Bilateral lower extremity edema-marga wraps to bilateral legs NEUROLOGIC: Awake and alert. Oriented x 3. ASSESSMENT: Acute exacerbation of diastolic congestive heart failure, EF 50%, BNP 4780 Elevated troponins, no evidence of acute coronary syndrome COPD with home O2 use Persistent atrial fibrillation Hyperlipidemia Hypertension Chronic kidney disease Diabetes mellitus, type II Obstructive sleep apnea with CPAP use Morbid obesity BMI 54.5 PLAN: Plan is for discharge back to [facility] per internal medicine. Agreeable to discharge today. Will increase patient's Lasix to 60 mg by mouth twice a day at discharge. Nurse practitioner note has been reviewed by physician. Signing provider agrees with the documented findings, assessment, and plan of care. Objective - Vital Signs Vital signs: Vital Signs Temp 98 F 07/09/20 11:48 Pulse 76 07/09/20 11:48 Resp 20 07/09/20 11:48 BP 93/58 07/09/20 11:48 Pulse Ox 98 07/09/20 11:48 Intake & Output 07/08/20 07/09/20 07/09/20 18:59 06:59 18:59 Intake Total 125 540 240 Output Total 800 400 Balance -675 140 240 Weight 187.5 kg 188 kg Intake: Oral 125 540 240 Output: Urine 800 400 Other: Voiding Method Indwelling Catheter Indwelling Catheter Indwelling Catheter - Labs CBC & Chem 7: 07/09/20 06:56 07/07/20 23:16 Labs: Abnormal Lab Results - Last 24 Hours (Table) 0907/08/20 07/08/20 Range/Units 16:39 20:24 20:46 RBC (4.30-5.90) m/uL Hgb (13.0-17.5) gm/dL Hct (39.0-53.0) % MCV (80.0-100.0) fL MCHC (31.0-37.0) g/dL RDW (11.5-15.5) % Plt Count (150-450) k/uL POC Glucose (mg/dL) 150 H 145 H (75-99) mg/dL Urine Protein 2+ H (Negative) Urine Blood Small H (Negative) Ur Leukocyte Esterase Large H (Negative) Urine RBC 13 H (0-5) /hpf Urine WBC >182 H (0-5) /hpf Urine WBC Clumps Many H (None) /hpf Urine Bacteria Few H (None) /hpf Hyaline Casts 17 H (0-2) /lpf Urine Mucus Occasional H (None) /hpf 07/09/20 07/09/20 07/09/20 Range/Units 06:38 06:56 11:53 RBC 3.69 L (4.30-5.90) m/uL Hgb 11.0 L (13.0-17.5) gm/dL Hct 37.7 L (39.0-53.0) % MCV 102.1 H (80.0-100.0) fL MCHC 29.1 L (31.0-37.0) g/dL RDW 16.2 H (11.5-15.5) % Plt Count 132 L (150-450) k/uL POC Glucose (mg/dL) 109 H 112 H (75-99) mg/dL Urine Protein (Negative) Urine Blood (Negative) Ur Leukocyte Esterase (Negative) Urine RBC (0-5) /hpf Urine WBC (0-5) /hpf Urine WBC Clumps (None) /hpf Urine Bacteria (None) /hpf Hyaline Casts (0-2) /lpf Urine Mucus (None) /hpf
[2020-07-09 15:08] VITALS: PULSE 100
[2020-07-09] MEDS ORDERED: FUROSEMIDE 20 MG TAB PO SCH (16:00)
--- NOTE | 2020-07-12 01:49 | CDI ---
Documentation Clarification Form Date: 07/12/2020 From: David Mansfield Phone: If you have a question about this query, please contact Hannah Barrett Procurement Officer at [phone] between 8am and 5pm. Admit Date: 07/08/2020 Discharge Date: 07/09/2020 Patient Name: Arnold Alfredo Visit Number: [id number] ATTENTION: The Clinical Documentation Specialists (CDI) and [facility] Coding Staff appreciate your assistance in clarifying documentation. Please respond to the clarification below the line at the bottom and electronically sign. The CDI & [facility] Coding staff will review the response and follow-up if needed. Please note: Queries are made part of the Legal Health Record. If you have any questions, please contact the author of this message via ITS. Dear Elizabeth Perdue MD., CKD is documented in the Dr. Ramo Melo consult note as "Chronic kidney disease". History/Risk Factors: CHF, ARF, Obesity, Atrial fibrillation, COPD Clinical Indicators: Current BUN/CR/GFR: 30H/1.35H/66 on 07/07 Treatment: IV lasix and conservative management. 07/09 Progress note also stated " Chronic kidney disease". In order to capture the severity of condition, please clarify the stage of the CKD, if known: CKD Stage 1 (GFR > 90) CKD Stage 2 (GFR 60-89) CKD Stage 3 (GFR 30-59) CKD Stage 4 (GFR 15-29) CKD Stage 5 (GFR <15) ESRD Other, please specify Unable to determine can't speak for Dr. Melo my impression is as per my documentation MTDD
== END 2020-07-09 15:23 | DRG 291 ==
LOC: EC 22:05 → 3SCARD 07-08 00:58
PROVIDERS: ADMIT Hospitalist; ATTEND Hospitalist
PROC: 5A09457 Assistance with Respiratory Ventilation, 24-96 Consecutive Hours, Continuous Positive Airway Pressure (ICD-10-PCS; principal; 2020-07-08)
DX: I13.0 Hypertensive heart and chronic kidney disease with heart failure and stage 1 through stage 4 chronic kidney disease, or unspecified chronic kidney disease (principal); I50.43 Acute on chronic combined systolic (congestive) and diastolic (congestive) heart failure; J96.21 Acute and chronic respiratory failure with hypoxia; E66.2 Morbid (severe) obesity with alveolar hypoventilation; Z68.43 Body mass index [BMI] 50.0-59.9, adult; I48.19 Other persistent atrial fibrillation; K21.9 Gastro-esophageal reflux disease without esophagitis; E11.22 Type 2 diabetes mellitus with diabetic chronic kidney disease; G47.33 Obstructive sleep apnea (adult) (pediatric); E78.5 Hyperlipidemia, unspecified; F41.9 Anxiety disorder, unspecified; M19.90 Unspecified osteoarthritis, unspecified site; I27.20 Pulmonary hypertension, unspecified; N18.9 Chronic kidney disease, unspecified; J44.9 Chronic obstructive pulmonary disease, unspecified; I07.1 Rheumatic tricuspid insufficiency; E11.42 Type 2 diabetes mellitus with diabetic polyneuropathy; Z99.81 Dependence on supplemental oxygen; Z79.82 Long term (current) use of aspirin; Z79.4 Long term (current) use of insulin; Z79.899 Other long term (current) drug therapy; Z79.01 Long term (current) use of anticoagulants; Z90.89 Acquired absence of other organs; Z98.890 Other specified postprocedural states; Z87.891 Personal history of nicotine dependence; Z87.738 Personal history of other specified (corrected) congenital malformations of digestive system; Z86.14 Personal history of Methicillin resistant Staphylococcus aureus infection; Z82.5 Family history of asthma and other chronic lower respiratory diseases; Z82.49 Family history of ischemic heart disease and other diseases of the circulatory system; Z82.62 Family history of osteoporosis; Z83.3 Family history of diabetes mellitus
CPT/HCPCS: 36415; 71045; 80053; 81001; 83605; 83880; 84484; 85025; 85610; 85730; 93005; 93306; 94640; 94660; 96365; 99285

== ENCOUNTER 2021-01-17 11:09 | Inpatient (IN) | payer MEDICARE, OTHER ==
[2021-01-17] MEDS ORDERED: SODIUM CHLORIDE 0.9% 500 ML 500 ML IV ONE (11:24)
--- NOTE | 2021-01-17 11:31 | ED ---
General Adult HPI - General Chief complaint: Recheck/Abnormal Lab/Rx Stated complaint: UTI,Poss Renal Failure Time Seen by Provider: 01/17/21 11:15 Source: patient, EMS, RN notes reviewed, old records reviewed Mode of arrival: EMS Limitations: physical limitation - History of Present Illness Initial comments: This is a 60-year-old male who resides in a [facility]. Patient states he went to rehab after he had surgery year ago and was never able to walk again. Patient was sent in per EMS because staff stated he might have urinary tract infection and they believe he has renal failure. Patient himself has no complaints and doesn't know why he was sent in and states she was unaware that there were going to send him. At this point time EMS that there was no further history and we did not get a call from the [facility] prior to the patient's arrival. - Related Data Home Medications Medication Instructions Recorded Confirmed Fluticasone/Salmeterol [Advair 1 puff INHALATION RT-BID 02/10/16 01/17/21 250-50 Diskus] Aspirin [Adult Low Dose Aspirin EC] 81 mg PO DAILY 02/03/19 01/17/21 Allopurinol [Zyloprim] 300 mg PO DAILY 06/26/20 01/17/21 Cyanocobalamin [Vitamin B-12] 500 mcg PO DAILY 06/26/20 01/17/21 Ferrous Sulfate [Iron (65 MG 325 mg PO DAILY 06/26/20 01/17/21 Elemental)] Folic Acid 0.4 mg PO DAILY 06/26/20 01/17/21 Ipratropium-Albuterol Nebulize 3 ml INHALATION RT-Q8H PRN 06/26/20 01/17/21 [Duoneb 0.5 mg-3 mg/3 ml Soln] Metoprolol Tartrate [Lopressor] 50 mg PO Q8H 06/26/20 01/17/21 Ammonium Lactate Lotion 1 applic TOPICAL DAILY 01/17/21 01/17/21 [Lac-Hydrin 12% Lotion] Apixaban [Eliquis] 5 mg PO BID 01/17/21 01/17/21 Artificial Tears-Hypromellose 2 drops BOTH EYES BID 01/17/21 01/17/21 [Artificial Tear Drops] Atorvastatin [Lipitor] 40 mg PO HS 01/17/21 01/17/21 Furosemide [Lasix] 20 mg PO BID@0900,1700 01/17/21 01/17/21 Lidocaine 2% Gel [Xylocaine Jelly 1 applic URETHRAL BID 01/17/21 01/17/21 2%] Pantoprazole Sodium [Protonix] 40 mg PO DAILY 01/17/21 01/17/21 Tamsulosin HCl [Flomax] 0.4 mg PO HS 01/17/21 01/17/21 Zolpidem [Ambien] 2.5 mg PO HS PRN 01/17/21 01/17/21 Previous Rx's Medication Instructions Recorded Acetaminophen Tab [Tylenol] 650 mg PO Q8H PRN #0 07/05/20 Allergies Allergy/AdvReac Type Severity Reaction Status Date / Time No Known Allergies Allergy Verified 01/17/21 11:24 Review of Systems ROS Statement: Those systems with pertinent positive or pertinent negative responses have been documented in the HPI. ROS Other: All systems not noted in ROS Statement are negative. Past Medical History Past Medical History: Atrial Fibrillation, Heart Failure, COPD, Diabetes Mellitus, GERD/Reflux, Hyperlipidemia, Hypertension, Neurologic Disorder, Osteoarthritis (OA), Sleep Apnea/CPAP/BIPAP Additional Past Medical History / Comment(s): NIDDM, bilateral lower leg and feet neuropathy, gout-travels everywhere per pt History of Any Multi-Drug Resistant Organisms: MRSA Date of last positivie culture/infection: 2005 or 2007 per pt-tx while pt lived in [place] MDRO Source:: Low back Past Surgical History: Adenoidectomy, Tonsillectomy Additional Past Surgical History / Comment(s): Pyloric stenosis when he was an , bilateral knee arthroscopies, 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 Past Anesthesia/Blood Transfusion Reactions: No Reported Reaction Past Psychological History: Anxiety Smoking Status: Former smoker Past Alcohol Use History: None Reported, Rare Past Drug Use History: None Reported, Marijuana - Past Family History Father Family Medical History: Coronary Artery Disease (CAD), Diabetes Mellitus Additional Family Medical History / Comment(s): Father had heart disease. He at age 74 of possible a [place]-pt not sure. Mother Family Medical History: Congestive Heart Failure (CHF), COPD, Coronary Artery Disease (CAD) Additional Family Medical History / Comment(s): Mother had heart problems. She at age 72 yrs. She had osteoporosis. Brother(s) Family Medical History: No Reported History Sister(s) Family Medical History: Diabetes Mellitus Daughter(s) Family Medical History: No Reported History Son(s) Family Medical History: No Reported History General Exam - General Exam Comments Initial Comments: GENERAL: Patient is well-developed and well-nourished. Patient is nontoxic and well- hydrated and is in no acute distress. ENT: Neck is soft and supple. No significant lymphadenopathy is noted. Oropharynx is clear. Moist mucous membranes. Neck has full range of motion without eliciting any pain. EYES: The sclera were anicteric and conjunctiva were pink and moist. Extraocular movements were intact and pupils were equal round and reactive to light. Eyelids were unremarkable. PULMONARY: Unlabored respirations. Good breath sounds bilaterally. No audible rales rho nchi or wheezing was noted. CARDIOVASCULAR: There is a regular rate and rhythm without any murmurs gallops or rubs. ABDOMEN: Soft and nontender with normal bowel sounds. Patient is morbidly obese. SKIN: Skin is clear with no lesions or rashes and otherwise unremarkable. NEUROLOGIC: Patient is alert and oriented x3. Cranial nerves II through XII are grossly intact. MUSCULOSKELETAL: Patient can move both his legs but is very weak and he states this is his baseline. LYMPHATICS: No significant lymphadenopathy is noted PSYCHIATRIC: Normal psychiatric evaluation. N Limitations: physical limitation Course Vital Signs 01/17/21 11:19 Temperature 98.1 F Pulse Rate 98 Respiratory 18 Rate Blood Pressure 153/100 O2 Sat by Pulse 95 Oximetry Medical Decision Making - Medical Decision Making EKG shows atrial fibrillation at 93 bpm QRS is 114 QT interval 376 QTC is 467. Patient's no ST segment elevation or depression. Urine came back infected. I started the patient on Rocephin. Patient's kidney function was consolable he worsen or have been previous visits. I spoke with Dr. Sinclair she agreed to admit the patient admitted the patient I con sult the neurology continued Rocephin. Patient's hemoglobin was also low so I did serial CBCs. I admitted the patient wrote admitting orders. - Lab Data Result diagrams: 01/17/21 11:56 01/17/21 11:56 Lab Results 03/19/21 03/19/21 03/19/21 Range/Units 11:56 11:56 12:09 WBC 6.3 (3.8-10.6) k/uL RBC 3.22 L (4.30-5.90) m/uL Hgb 8.6 L (13.0-17.5) gm/dL Hct 30.1 L (39.0-53.0) % MCV 93.7 (80.0-100.0) fL MCH 26.7 (25.0-35.0) pg MCHC 28.5 L (31.0-37.0) g/dL RDW 18.7 H (11.5-15.5) % Plt Count 295 (150-450) k/uL MPV 8.2 Neutrophils % (Manual) 82 % Lymphocytes % (Manual) 9 % Monocytes % (Manual) 6 % Eosinophils % (Manual) 3 % Neutrophils # (Manual) 5.17 (1.3-7.7) k/uL Lymphocytes # (Manual) 0.57 L (1.0-4.8) k/uL Monocytes # (Manual) 0.38 (0-1.0) k/uL Eosinophils # (Manual) 0.19 (0-0.7) k/uL Nucleated RBCs 0 (0-0) /100 WBC Manual Slide Review Performed Polychromasia Present Hypochromasia Marked Poikilocytosis Moderate Anisocytosis Slight Sodium 138 (137-145) mmol/L Potassium 5.1 (3.5-5.1) mmol/L Chloride 95 L (98-107) mmol/L Carbon Dioxide 38 H (22-30) mmol/L Anion Gap 5 mmol/L BUN 91 H (9-20) mg/dL Creatinine 3.60 H (0.66-1.25) mg/dL Est GFR (CKD-EPI)AfAm 20 (>60 ml/min/1.73 sqM) Est GFR (CKD-EPI)NonAf 17 (>60 ml/min/1.73 sqM) Glucose 127 H (74-99) mg/dL Calcium 8.9 (8.4-10.2) mg/dL Total Bilirubin 0.8 (0.2-1.3) mg/dL AST 15 L (17-59) U/L ALT 6 (4-49) U/L Alkaline Phosphatase 84 (38-126) U/L Total Protein 5.8 L (6.3-8.2) g/dL Albumin 3.0 L (3.5-5.0) g/dL Urine Color Yellow Urine Appearance Turbid (Clear) Urine pH 5.5 (5.0-8.0) Ur Specific [place] 1.015 (1.001-1.035) Urine Protein 2+ H (Negative) Urine Glucose (UA) Negative (Negative) Urine Ketones Negative (Negative) Urine Blood Large H (Negative) Urine Nitrite Negative (Negative) Urine Bilirubin Negative (Negative) Urine Urobilinogen <2.0 (<2.0) mg/dL Ur Leukocyte Esterase Large H (Negative) Urine RBC >182 H (0-5) /hpf Urine WBC >182 H (0-5) /hpf Urine WBC Clumps Many H (None) /hpf Urine Bacteria Many H (None) /hpf Urine Mucus Rare H (None) /hpf Disposition Clinical Impression: Acute renal failure, Urinary tract infection, Anemia Disposition: ADMITTED IP TO THIS [facility] Referrals: Dejon Watson MD [Primary Care Provider] - 1-2 days Time of Disposition: 13:25
[2021-01-17 12:32] LABS: Calcium 8.9 mg/dL (8.4-10.2); Potassium 5.1 mmol/L (3.5-5.1); Total Bilirubin 0.8 mg/dL (0.2-1.3); Total Protein 5.8 g/dL (6.3-8.2)
[2021-01-17 12:40] LABS: Appearance,Urine Turbid (Clear); Bacteria,Urine Many /hpf; Bilirubin,Urine Negative (Negative); Blood,Urine Large (Negative); Color,Urine Yellow; Glucose,Urine (UA) Negative (Negative); Ketones,Urine Negative (Negative); Leukocyte Esterase,Urine Large (Negative); Mucus,Urine Rare /hpf; Nitrite,Urine Negative (Negative); PH, Urine 5.5 (5.0-8.0); Protein,Urine 2+ (Negative); RBC,Urine >182 /hpf (0-5); Specific Gravity,Urine 1.015 (1.001-1.035); Urobilinogen,Urine <2.0 mg/dL (<2.0); WBC,Urine >182 /hpf (0-5)
[2021-01-17 12:42] LABS: Anisocytosis Slight; HCT 30.1 % (39.0-53.0); HGB 8.6 gm/dL (13.0-17.5); Hypochromasia Marked; MCH 26.7 pg (25.0-35.0); MCHC 28.5 g/dL (31.0-37.0); MCV 93.7 fL (80.0-100.0); Mean Platelet Volume 8.2; Platelet Count 295 k/uL (150-450); Poikilocytosis Moderate; RBC 3.22 m/uL (4.30-5.90); RDW 18.7 % (11.5-15.5); WBC 6.3 k/uL (3.8-10.6)
[2021-01-17 13:01] LABS: Eosinophils # (M) 0.19 k/uL (0-0.7); Lymphocytes # (M) 0.57 k/uL (1.0-4.8); Monocytes # (M) 0.38 k/uL (0-1.0); Neutrophils # (M) 5.17 k/uL (1.3-7.7); Neutrophils % (M) 82 %; Nucleated Red Blood Cells 0 /100 WBC (0-0); Total Cells Counted 100
[2021-01-17 13:03] LABS: Polychromasia Present
[2021-01-17] MEDS ORDERED: SODIUM CHLORIDE 0.9% 1,000 ML IV ONE (13:25)
[2021-01-17 18:25] LABS: Glucose,Whole Blood 116 mg/dL (75-99)
[2021-01-17 20:15] LABS: Glucose,Whole Blood 109 mg/dL (75-99)
[2021-01-17] MEDS ORDERED: ZOLPIDEM 5 MG TAB PO PRN (22:45)
[2021-01-17] MEDS: SODIUM CHLORIDE 0.9% 1,000 ML IV SCH (22:53)
[2021-01-17] MEDS: METOPROLOL TARTRATE 50 MG TAB PO SCH (22:54)
[2021-01-18 02:25] LABS: HCT 32.3 % (39.6-50.0); HGB 8.7 g/dL (13.0-17.0); MCH 26.8 pg (27.0-32.0); MCHC 26.9 g/dL (32.0-37.0); MCV 99.4 fL (80.0-97.0); Platelet Count 253 X 10*3/uL (140-440); RBC 3.25 X 10*6/uL (4.40-5.60); RDW 18.9 % (11.5-14.5); WBC 7.01 X 10*3/uL (4.50-10.00)
[2021-01-18 07:29] LABS: Glucose,Whole Blood 112 mg/dL (75-99)
[2021-01-18] MEDS: INSULIN ASPART (NovoLOG) 100 UNIT/ML VIAL SQ SCH ×4 (07:37→20:52)
[2021-01-18] MEDS: APIXABAN 5 MG TAB PO SCH ×2 (08:05→20:52)
[2021-01-18] MEDS: FERROUS SULFATE 325 MG TAB PO SCH (08:05)
[2021-01-18] MEDS: FAMOTIDINE 20 MG TAB PO SCH (08:05)
[2021-01-18] MEDS: ASPIRIN 81 MG PO SCH (08:05)
[2021-01-18] MEDS: METOPROLOL TARTRATE 50 MG TAB PO SCH ×3 (08:05→23:44)
[2021-01-18] MEDS: FOLIC ACID 1 MG TAB PO SCH (08:06)
[2021-01-18] MEDS: IPRATROPIUM-ALBUTEROL 3 ML NEB INHALATION PRN (09:17)
[2021-01-18] MEDS: SYMBICORT 80-4.5 MCG INHALER INHALATION SCH ×2 (09:17→20:39)
--- NOTE | 2021-01-18 09:45 | P.HPIM ---
History of Present Illness H&P Date: 01/17/21 Chief Complaint: UTI/renal failure 60-year-old male who resides in a fdc. Patient states he went to rehab after he had surgery year ago and was never able to walk again. Patient was sent in per EMS because staff stated he might have urinary tract infection and they believe he has renal failure. Patient himself has no complaints and doesn't know why he was sent in and states she was unaware that there were going to send him. At this point time EMS that there was no further history and we did not get a call from the [facility]dc prior to the patient's arrival. Workup in ED including an EKG shows atrial fibrillation at 93 BPM; UA is positive; labs reviewed the CBC with white blood count of 6.3, hemoglobin 8.6, hematocrit 30.1 and platelet count of 295, sodium 138, potassium 5.1, BUN 91 with creatinine of 3.6 Review of Systems ROS unobtainable: due to mental status Past Medical History Past Medical History: Atrial Fibrillation, Heart Failure, COPD, Diabetes Mellitus, GERD/Reflux, Hyperlipidemia, Hypertension, Neurologic Disorder, Osteoarthritis (OA), Sleep Apnea/CPAP/BIPAP Additional Past Medical History / Comment(s): NIDDM, bilateral lower leg and feet neuropathy, gout-travels everywhere per pt History of Any Multi-Drug Resistant Organisms: MRSA Date of last positivie culture/infection: 2005 or 2007 per pt-tx while pt lived in [place] MDRO Source:: Low back Past Surgical History: Adenoidectomy, Tonsillectomy Additional Past Surgical History / Comment(s): Pyloric stenosis when he was an , bilateral knee arthroscopies, 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 Past Anesthesia/Blood Transfusion Reactions: No Reported Reaction Past Psychological History: Anxiety Smoking Status: Former smoker Past Alcohol Use History: None Reported, Rare Past Drug Use History: None Reported, Marijuana - Past Family History Father Family Medical History: Coronary Artery Disease (CAD), Diabetes Mellitus Additional Family Medical History / Comment(s): Father had heart disease. He at age 74 of possible a [place]-pt not sure. Mother Family Medical History: Congestive Heart Failure (CHF), COPD, Coronary Artery Disease (CAD) Additional Family Medical History / Comment(s): Mother had heart problems. She at age 72 yrs. She had osteoporosis. Brother(s) Family Medical History: No Reported History Sister(s) Family Medical History: Diabetes Mellitus Daughter(s) Family Medical History: No Reported History Son(s) Family Medical History: No Reported History Medications and Allergies Home Medications Medication Instructions Recorded Confirmed Type Fluticasone/Salmeterol [Advair 1 puff INHALATION RT-BID 02/10/16 01/17/21 History 250-50 Diskus] Aspirin [Adult Low Dose Aspirin EC] 81 mg PO DAILY 02/03/19 01/17/21 History Allopurinol [Zyloprim] 300 mg PO DAILY 06/26/20 01/17/21 History Cyanocobalamin [Vitamin B-12] 500 mcg PO DAILY 06/26/20 01/17/21 History Ferrous Sulfate [Iron (65 MG 325 mg PO DAILY 06/26/20 01/17/21 History Elemental)] Folic Acid 0.4 mg PO DAILY 06/26/20 01/17/21 History Ipratropium-Albuterol Nebulize 3 ml INHALATION RT-Q8H PRN 06/26/20 01/17/21 History [Duoneb 0.5 mg-3 mg/3 ml Soln] Metoprolol Tartrate [Lopressor] 50 mg PO Q8H 06/26/20 01/17/21 History Acetaminophen Tab [Tylenol] 650 mg PO Q8H PRN #0 07/05/20 01/17/21 Rx Ammonium Lactate Lotion 1 applic TOPICAL DAILY 01/17/21 01/17/21 History [Lac-Hydrin 12% Lotion] Apixaban [Eliquis] 5 mg PO BID 01/17/21 01/17/21 History Artificial Tears-Hypromellose 2 drops BOTH EYES BID 01/17/21 01/17/21 History [Artificial Tear Drops] Atorvastatin [Lipitor] 40 mg PO HS 01/17/21 01/17/21 History Furosemide [Lasix] 20 mg PO BID@0900,1700 01/17/21 01/17/21 History Lidocaine 2% Gel [Xylocaine Jelly 1 applic URETHRAL BID 01/17/21 01/17/21 History 2%] Pantoprazole Sodium [Protonix] 40 mg PO DAILY 01/17/21 01/17/21 History Tamsulosin HCl [Flomax] 0.4 mg PO HS 01/17/21 01/17/21 History Zolpidem [Ambien] 2.5 mg PO HS PRN 01/17/21 01/17/21 History Allergies Allergy/AdvReac Type Severity Reaction Status Date / Time bisacodyl Allergy Unknown Verified 01/18/21 04:21 Physical Exam Vitals: Vital Signs Temp Pulse Resp BP Pulse Ox 01/17/21 13:50 106 H 18 113/83 96 01/17/21 11:19 98.1 F 98 18 153/100 95 Intake and Output 01/17/21 01/17/21 01/17/21 06:59 14:59 22:59 Other: Weight 167.376 kg - Constitutional General appearance: Present: average body habitus, cooperative, no acute distress - EENT Eyes: Present: anicteric sclerae, EOMI, PERRLA, normal appearance ENT: Present: hearing grossly normal, normal oropharynx Ears: bilateral: normal - Neck Neck: Present: normal ROM. Absent: lymphadenopathy, rigidity, thyromegaly Carotids: negative: bruit present Thyroid: bilateral: normal size, negative: enlarged, nodule - Respiratory Respiratory: bilateral: CTA, negative: rales, rhonchi, wheezing - Cardiovascular Rhythm: regular Heart sounds: normal: S1, S2 Abnormal Heart Sounds: Absent: systolic murmur, diastolic murmur - Gastrointestinal General gastrointestinal: Present: normal bowel sounds, soft. Absent: distended, organomegaly, tenderness - Genitourinary Genitourinary Comment(s): deferred - Integumentary Integumentary: Present: normal turgor. Absent: jaundiced, rash, ulcer - Neurologic Neurologic: Present: CNII-XII intact. Absent: focal deficits - Musculoskeletal Musculoskeletal: Present: gait normal, strength equal bilaterally - Psychiatric Psychiatric: Present: A&O x's 3, appropriate affect, intact judgment & insight Results CBC & Chem 7: 01/17/21 17:55 01/17/21 11:56 Labs: Abnormal Lab Results - Last 24 Hours (Table) 01/17/21 01/17/21 01/17/21 Range/Units 11:56 11:56 12:09 RBC 3.22 L (4.30-5.90) m/uL Hgb 8.6 L (13.0-17.5) gm/dL Hct 30.1 L (39.0-53.0) % MCHC 28.5 L (31.0-37.0) g/dL RDW 18.7 H (11.5-15.5) % Lymphocytes # (Manual) 0.57 L (1.0-4.8) k/uL Chloride 95 L (98-107) mmol/L Carbon Dioxide 38 H (22-30) mmol/L BUN 91 H (9-20) mg/dL Creatinine 3.60 H (0.66-1.25) mg/dL Glucose 127 H (74-99) mg/dL AST 15 L (17-59) U/L Total Protein 5.8 L (6.3-8.2) g/dL Albumin 3.0 L (3.5-5.0) g/dL Urine Protein 2+ H (Negative) Urine Blood Large H (Negative) Ur Leukocyte Esterase Large H (Negative) Urine RBC >182 H (0-5) /hpf Urine WBC >182 H (0-5) /hpf Urine WBC Clumps Many H (None) /hpf Urine Bacteria Many H (None) /hpf Urine Mucus Rare H (None) /hpf Assessment and Plan Assessment: 1. Acute renal failure; slow IV fluid hydration in form of normal saline at rate of 75 mL an hour; we will monitor strict AYDE's, daily weights, renal function and electrolytes; avoid nephrotoxic agents; consult nephrology for further recommendations 2. Complicated UTI; patient started on Rocephin 1 g IV daily; we will await final urine culture results for final tailoring of antibiotic therapy 3. Anemia; possibly secondary to chronic kidney disease; we will continue with Protonix 40 mg daily; monitor H&H closely along with stool occult blood; we will consult GI if hemoglobin continues to drop or stool occult blood is positive 4. Uncontrolled hypertension; resume metoprolol 50 mg by mouth every 8 hours; hold off on Lasix daily renal function improves; we will monitor blood pressure closely and make adjustments to medications if blood pressure remains uncontrolled 5. Diabetes mellitus; not on any oral hypoglycemic agents; we will monitor Accu-Cheks every before meals and at bedtime with insulin sliding scale; consistent carbohydrate diet 6. Hyperlipidemia; Lipitor 40 mg by mouth daily at bedtime 7. COPD; not in exacerbation; continue with home inhaler therapy in form of Advair, DuoNeb nebulizer treatments 8. Atrial fibrillation; remains rate controlled with metoprolol 50 mg by mouth every 8 hours; remains anticoagulated with Eliquis 9. CAD/CHF; stable on aspirin, beta blockers, statins; patient takes Lasix 20 mg twice a day; we will hold off till renal function improves; we will continue with salt and fluid restricted diet; monitor strict AYDE's and daily weights DVT prophylaxis; SCDs/systemic anticoagulation CODE STATUS; full code
[2021-01-18 10:51] LABS: Anisocytosis Slight; Basophils # (A) 0.1 k/uL (0-0.2); Basophils % (A) 1 %; Eosinophils # (A) 0.2 k/uL (0-0.7); Eosinophils % (A) 4 %; HCT 28.9 % (39.0-53.0); HGB 8.4 gm/dL (13.0-17.5); Hypochromasia Marked; Lymphocytes # (A) 0.6 k/uL (1.0-4.8); Lymphocytes % (A) 11 %; MCH 27.5 pg (25.0-35.0); MCHC 29.1 g/dL (31.0-37.0); MCV 94.5 fL (80.0-100.0); Macrocytosis Slight; Mean Platelet Volume 8.6; Monocytes # (A) 0.5 k/uL (0-1.0); Monocytes % (A) 8 %; Neutrophils # (A) 4.6 k/uL (1.3-7.7); Neutrophils % (A) 75 %; Platelet Count 266 k/uL (150-450); Poikilocytosis Slight; RBC 3.06 m/uL (4.30-5.90); RDW 18.9 % (11.5-15.5); WBC 6.1 k/uL (3.8-10.6)
[2021-01-18 10:54] LABS: African American GFR (CKD) 23 (>60 ml/min/1.73 sqM); Blood Urea Nitrogen 86 mg/dL (9-20); Calcium 8.6 mg/dL (8.4-10.2); Chloride 97 mmol/L (98-107); Glucose 105 mg/dL (74-99); Non-African American GFR(CKD) 20 (>60 ml/min/1.73 sqM); Sodium 139 mmol/L (137-145)
[2021-01-18 11:01] LABS: Anion Gap 6 mmol/L; Carbon Dioxide 36 mmol/L (22-30)
[2021-01-18 11:31] LABS: HCT 30.4 % (39.6-50.0); HGB 8.2 g/dL (13.0-17.0); MCH 26.8 pg (27.0-32.0); MCV 99.3 fL (80.0-97.0); Mean Platelet Volume 10.4 fL (9.5-12.2); Platelet Count 274 X 10*3/uL (140-440); RBC 3.06 X 10*6/uL (4.40-5.60); RDW 19.1 % (11.5-14.5); WBC 5.62 X 10*3/uL (4.50-10.00)
[2021-01-18 12:08] LABS: Glucose,Whole Blood 107 mg/dL (75-99)
[2021-01-18] MEDS: PANTOPRAZOLE 40 MG TABLET PO SCH (12:24)
[2021-01-18] MEDS: SODIUM CHLORIDE 0.9% 1,000 ML IV SCH ×2 (12:25→23:45)
[2021-01-18 12:33] LABS: African American GFR (CKD) 21.3 (60.0-200.0); Anion Gap 4.8 mmol/L (4.00-12.00); Calcium 8.7 mg/dL (8.7-10.3); Carbon Dioxide 37.2 mmol/L (21.6-31.8); Non-African American GFR(CKD) 18.4 (60.0-200.0)
[2021-01-18] MEDS ORDERED: DARBEPOETIN ALFA 60 MCG/0.3 ML SYRINGE SQ SCH (13:00)
--- NOTE | 2021-01-18 15:04 | CONS ---
CONSULTATION REASON FOR CONSULT: Renal failure. HISTORY OF PRESENT ILLNESS: The patient is a 60-year-old male with history of chronic kidney disease, type 2 diabetes, hypertension. Previous creatinine has been close to 1.5 mg/dL, CKD stage 3A. The patient has also had issues with volume overload and at this time he was admitted to the hospital with worsening renal function. He has been at rehab. Serum creatinine was 3.6 yesterday. Last creatinine 1.35 on 07/07/2020. The patient states that he has been voiding. I do not see any nonsteroidal anti-inflammatory agents on his home med list. Blood pressure is on the lower side with systolic around 111 mmHg. There was a reading of 93 mmHg for systolic blood pressure yesterday. The patient has a chronic indwelling Mccloud catheter. He has good urine output. Patient denied any nausea, vomiting, diarrhea. He has, however, been feeling weak. PMH CKD, stage 3a, diabetes mellitus, type 2, HTN, A fib, COPD PSH Tonsillectomy, adenoidectomy SH Negative for smoking, drug abuse or ETOH abuse. Medications Pls see list Allergies none ON EXAMINATION Pt is awake, comfortable. Not in acute distress. BP 128/74 mmHg, HR 78/min, Afebrile. Lungs are clear with decreased breath sounds at bases. Heart sounds are heard, no murmur Abdomen is soft, obese, nontender. [employer] exam grossly intact Exam of lower etremities shows chronic skin changes with chronic edema bilateral legs. Pt does not move his legs much ASSESSMENT: 1. Chronic kidney disease stage 3A secondary to nephrosclerosis and most likely diabetic kidney disease. The patient has always had proteinuria since 2018. Baseline creatinine close to 1.3-1.5 mg/dL. 2. Acute kidney injury, prerenal, slowly improving. Continue with IV fluids. Avoid hypotension. 3. Pyuria, rule out urinary tract infection, maintained on antibiotics. Urine culture is pending. 4. Anemia, rule out iron deficiency. No active bleeding noted. Possibly component of anemia of chronic disease as well. 5. Chronic lower extremity cellulitis and chronic skin changes. 6. History of atrial fibrillation maintained on anticoagulation. 7. Coronary artery disease. PLAN: Continue IV fluids. Check iron profile. Add Aranesp. Repeat labs in a.m. Follow up on urine cultures. Continue empiric antibiotics. Continue to hold off on Lasix. Thank you for this consultation. We will continue to follow the patient with you during his hospitalization. MMMARITZA / IJN: [id number] / OG
[2021-01-18] MEDS: AMMONIUM LACTATE 12% LOTION 225 GM BTL TOPICAL SCH (17:01)
[2021-01-18 17:53] LABS: % Iron Saturation 14.6 (15.00-50.00)
[2021-01-18 18:03] LABS: Glucose,Whole Blood 129 mg/dL (75-99)
[2021-01-18 20:22] LABS: Glucose,Whole Blood 137 mg/dL (75-99)
[2021-01-18] MEDS: TAMSULOSIN 0.4 MG CAP.ER.24H PO SCH (20:52)
[2021-01-18] MEDS: ATORVASTATIN 40 MG TAB PO SCH (20:52)
[2021-01-19 07:48] LABS: Glucose,Whole Blood 109 mg/dL (75-99)
[2021-01-19] MEDS: INSULIN ASPART (NovoLOG) 100 UNIT/ML VIAL SQ SCH ×4 (08:03→21:04)
[2021-01-19] MEDS: METOPROLOL TARTRATE 50 MG TAB PO SCH ×3 (08:12→21:04)
[2021-01-19] MEDS: FOLIC ACID 1 MG TAB PO SCH (08:12)
[2021-01-19] MEDS: FERROUS SULFATE 325 MG TAB PO SCH (08:12)
[2021-01-19] MEDS: APIXABAN 5 MG TAB PO SCH ×2 (08:12→21:04)
[2021-01-19] MEDS: FAMOTIDINE 20 MG TAB PO SCH (08:12)
[2021-01-19] MEDS: ASPIRIN 81 MG PO SCH (08:12)
[2021-01-19] MEDS: PANTOPRAZOLE 40 MG TABLET PO SCH (08:12)
[2021-01-19] MEDS: AMMONIUM LACTATE 12% LOTION 225 GM BTL TOPICAL SCH (08:13)
[2021-01-19] MEDS: SODIUM FERRIC GLUCONAT-SUCROSE 125 MG in SODIUM CHLORIDE 0.9% 100 ML IVPB SCH (08:14)
[2021-01-19] MEDS: SYMBICORT 80-4.5 MCG INHALER INHALATION SCH ×2 (08:38→17:55)
[2021-01-19] MEDS: IPRATROPIUM-ALBUTEROL 3 ML NEB INHALATION PRN ×2 (08:38→17:55)
[2021-01-19 09:10] LABS: Basophils # (A) 0.05 X 10*3/uL (0.00-0.10); Basophils % (A) 0.9 %; Eosinophils # (A) 0.35 X 10*3/uL (0.04-0.35); Eosinophils % (A) 6.4 %; Lymphocytes # (A) 0.61 X 10*3/uL (0.90-5.00); Lymphocytes % (A) 11.2 %; MCH 26.3 pg (27.0-32.0); MCHC 26.7 g/dL (32.0-37.0); MCV 98.7 fL (80.0-97.0); Mean Platelet Volume 9.9 fL (9.5-12.2); Monocytes # (A) 0.58 X 10*3/uL (0.20-1.00); Monocytes % (A) 10.6 %; Neutrophils # (A) 3.87 X 10*3/uL (1.80-7.70); Neutrophils % (A) 70.7 %; Platelet Count 259 X 10*3/uL (140-440); RBC 3.04 X 10*6/uL (4.40-5.60); RDW 19.1 % (11.5-14.5); WBC 5.47 X 10*3/uL (4.50-10.00)
[2021-01-19 09:54] LABS: African American GFR (CKD) 23.9 (60.0-200.0); Anion Gap 3.7 mmol/L (4.00-12.00); BUN/Creat Ratio 25.48 Ratio (12.00-20.00); Calcium 8.8 mg/dL (8.7-10.3); Carbon Dioxide 38.3 mmol/L (21.6-31.8); Non-African American GFR(CKD) 20.6 (60.0-200.0); Potassium 4.8 mmol/L (3.5-5.5)
--- NOTE | 2021-01-19 09:59 | P.PN ---
Subjective Progress Note Date: 01/18/21 Principal diagnosis: Acute renal failure UTI 60-year-old male who resides in a shelter. Patient states he went to rehab after he had surgery year ago and was never able to walk again. Patient was sent in per EMS because staff stated he might have urinary tract infection and they believe he has renal failure. Patient himself has no complaints and doesn't know why he was sent in and states she was unaware that there were going to send him. At this point time EMS that there was no further history and we did not get a call from the shelter prior to the patient's arrival. Workup in ED including an EKG shows atrial fibrillation at 93 BPM; UA is positive; labs reviewed the CBC with white blood count of 6.3, hemoglobin 8.6, hematocrit 30.1 and platelet count of 295, sodium 138, potassium 5.1, BUN 91 with creatinine of 3.6 01/19/2021 Patient is seen and evaluated sitting comfortably in bed; denies any specific complaints; nursing staff concerned about superficial abdominal wall wound; wound care is consulted Vital signs remained stable; labs are reviewed revealing slight improvement in creatinine from 3.6 yesterday down to 3.20 Nephrology on board and recommending to continue with slow IV fluid hydration; avoid hypotension; continue to hold Lasix Urine culture remains pending; continue with current IV antibiotics Hemoglobin remained stable; iron studies are ordered and pending; nephrology added Aranesp Objective - Vital Signs Vital signs: Vital Signs Temp 98.2 F 01/18/21 04:49 Pulse 106 H 01/18/21 09:36 Resp 20 01/18/21 04:49 BP 111/78 01/18/21 04:49 Pulse Ox 95 01/18/21 04:49 Intake & Output 01/17/21 01/18/21 01/18/21 18:59 06:59 18:59 Intake Total 1180 Output Total 800 Balance 380 Weight 167.376 kg 167.376 kg Intake: Oral 1180 Output: Urine 800 Straight 800 Other: Voiding Method Indwelling Catheter - Exam General appearance: Present: average body habitus, cooperative, no acute distress Neck: Present: normal ROM. Absent: lymphadenopathy, rigidity, thyromegaly Carotids: negative: bruit present Respiratory: bilateral: CTA, negative: rales, rhonchi, wheezing Rhythm: regular Heart sounds: normal: S1, S2 Abnormal Heart Sounds: Absent: systolic murmur, diastolic murmur General gastrointestinal: Present: normal bowel sounds, soft. Absent: distended, organomegaly, tenderness Genitourinary Comment(s): deferred Integumentary: Present: normal turgor. Absent: jaundiced, rash, ulcer Neurologic: Present: CNII-XII intact. Absent: focal deficits Musculoskeletal: Present: gait normal, strength equal bilaterally - Labs CBC & Chem 7: 01/19/21 05:42 01/18/21 10:22 Labs: Abnormal Lab Results - Last 24 Hours (Table) 01/17/21 01/17/21 01/17/21 Range/Units 11:56 11:56 12:09 RBC 3.22 L (4.30-5.90) m/uL Hgb 8.6 L (13.0-17.5) gm/dL Hct 30.1 L (39.0-53.0) % MCV (80.0-97.0) fL MCH (27.0-32.0) pg MCHC 28.5 L (31.0-37.0) g/dL RDW 18.7 H (11.5-15.5) % Absolute Nucleated RBC (0.00-0.00) X 10*3/uL Lymphocytes # (1.0-4.8) k/uL Lymphocytes # (Manual) 0.57 L (1.0-4.8) k/uL NRBC/100 WBC Diff (0.0-0.0) /100 WBCS Chloride 95 L (98-107) mmol/L Carbon Dioxide 38 H (22-30) mmol/L BUN 91 H (9-20) mg/dL Creatinine 3.60 H (0.66-1.25) mg/dL Glucose 127 H (74-99) mg/dL POC Glucose (mg/dL) (75-99) mg/dL AST 15 L (17-59) U/L Total Protein 5.8 L (6.3-8.2) g/dL Albumin 3.0 L (3.5-5.0) g/dL Urine Protein 2+ H (Negative) Urine Blood Large H (Negative) Ur Leukocyte Esterase Large H (Negative) Urine RBC >182 H (0-5) /hpf Urine WBC >182 H (0-5) /hpf Urine WBC Clumps Many H (None) /hpf Urine Bacteria Many H (None) /hpf Urine Mucus Rare H (None) /hpf 01/17/21 01/17/21 01/17/21 Range/Units 17:55 18:19 20:13 RBC 3.25 L (4.30-5.90) m/uL Hgb 8.7 L (13.0-17.5) gm/dL Hct 32.3 L (39.0-53.0) % MCV 99.4 H (80.0-97.0) fL MCH 26.8 L (27.0-32.0) pg MCHC 26.9 L (31.0-37.0) g/dL RDW 18.9 H (11.5-15.5) % Absolute Nucleated RBC 0.04 H (0.00-0.00) X 10*3/uL Lymphocytes # (1.0-4.8) k/uL Lymphocytes # (Manual) (1.0-4.8) k/uL NRBC/100 WBC Diff 0.6 H (0.0-0.0) /100 WBCS Chloride (98-107) mmol/L Carbon Dioxide (22-30) mmol/L BUN (9-20) mg/dL Creatinine (0.66-1.25) mg/dL Glucose (74-99) mg/dL POC Glucose (mg/dL) 116 H 109 H (75-99) mg/dL AST (17-59) U/L Total Protein (6.3-8.2) g/dL Albumin (3.5-5.0) g/dL Urine Protein (Negative) Urine Blood (Negative) Ur Leukocyte Esterase (Negative) Urine RBC (0-5) /hpf Urine WBC (0-5) /hpf Urine WBC Clumps (None) /hpf Urine Bacteria (None) /hpf Urine Mucus (None) /hpf 01/18/21 01/18/21 01/18/21 Range/Units 06:35 07:27 10:22 RBC 3.06 L 3.06 L (4.30-5.90) m/uL Hgb 8.2 L 8.4 L (13.0-17.5) gm/dL Hct 30.4 L 28.9 L (39.0-53.0) % MCV 99.3 H (80.0-97.0) fL MCH 26.8 L (27.0-32.0) pg MCHC 27.0 L 29.1 L (31.0-37.0) g/dL RDW 19.1 H 18.9 H (11.5-15.5) % Absolute Nucleated RBC (0.00-0.00) X 10*3/uL Lymphocytes # 0.6 L (1.0-4.8) k/uL Lymphocytes # (Manual) (1.0-4.8) k/uL NRBC/100 WBC Diff (0.0-0.0) /100 WBCS Chloride (98-107) mmol/L Carbon Dioxide (22-30) mmol/L BUN (9-20) mg/dL Creatinine (0.66-1.25) mg/dL Glucose (74-99) mg/dL POC Glucose (mg/dL) 112 H (75-99) mg/dL AST (17-59) U/L Total Protein (6.3-8.2) g/dL Albumin (3.5-5.0) g/dL Urine Protein (Negative) Urine Blood (Negative) Ur Leukocyte Esterase (Negative) Urine RBC (0-5) /hpf Urine WBC (0-5) /hpf Urine WBC Clumps (None) /hpf Urine Bacteria (None) /hpf Urine Mucus (None) /hpf 01/18/ Range/Units 10:22 RBC (4.30-5.90) m/uL Hgb (13.0-17.5) gm/dL Hct (39.0-53.0) % MCV (80.0-97.0) fL MCH (27.0-32.0) pg MCHC (31.0-37.0) g/dL RDW (11.5-15.5) % Absolute Nucleated RBC (0.00-0.00) X 10*3/uL Lymphocytes # (1.0-4.8) k/uL Lymphocytes # (Manual) (1.0-4.8) k/uL NRBC/100 WBC Diff (0.0-0.0) /100 WBCS Chloride 97 L (98-107) mmol/L Carbon Dioxide 36 H (22-30) mmol/L BUN 86 H (9-20) mg/dL Creatinine 3.20 H (0.66-1.25) mg/dL Glucose 105 H (74-99) mg/dL POC Glucose (mg/dL) (75-99) mg/dL AST (17-59) U/L Total Protein (6.3-8.2) g/dL Albumin (3.5-5.0) g/dL Urine Protein (Negative) Urine Blood (Negative) Ur Leukocyte Esterase (Negative) Urine RBC (0-5) /hpf Urine WBC (0-5) /hpf Urine WBC Clumps (None) /hpf Urine Bacteria (None) /hpf Urine Mucus (None) /hpf Microbiology - Last 24 Hours (Table) 01/17/21 12:09 Urine Culture - Preliminary Urine,Voided Assessment and Plan Assessment: 1. Acute renal failure; slow IV fluid hydration in form of normal saline at rate of 75 mL an hour; we will monitor strict AYDE's, daily weights, renal function and electrolytes; avoid nephrotoxic agents; consult nephrology for fur ther recommendations 2. Complicated UTI; patient started on Rocephin 1 g IV daily; we will await f inal urine culture results for final tailoring of antibiotic therapy 3. Anemia; possibly secondary to chronic kidney disease; we will continue with Protonix 40 mg daily; monitor H&H closely along with stool occult blood; we will consult GI if hemoglobin continues to drop or stool occult blood is positive 4. Uncontrolled hypertension; resume metoprolol 50 mg by mouth every 8 hours; hold off on Lasix daily renal function improves; we will monitor blood pressure closely and make adjustments to medications if blood pressure remains uncontrolled 5. Diabetes mellitus; not on any oral hypoglycemic agents; we will monitor Accu-Cheks every before meals and at bedtime with insulin sliding scale; consistent carbohydrate diet 6. Hyperlipidemia; Lipitor 40 mg by mouth daily at bedtime 7. COPD; not in exacerbation; continue with home inhaler therapy in form of Advair, DuoNeb nebulizer treatments 8. Atrial fibrillation; remains rate controlled with metoprolol 50 mg by mouth every 8 hours; remains anticoagulated with Eliquis 9. CAD/CHF; stable on aspirin, beta blockers, statins; patient takes Lasix 20 mg twice a day; we will hold off till renal function improves; we will continue with salt and fluid restricted diet; monitor strict AYDE's and daily weights DVT prophylaxis; SCDs/systemic anticoagulation CODE STATUS; full code
[2021-01-19 11:20] LABS: Glucose,Whole Blood 116 mg/dL (75-99)
--- NOTE | 2021-01-19 15:31 | PN ---
PROGRESS NOTE Patient is seen for followup for acute kidney injury. He is currently lying in bed. Patient denies any significant complaints. Overall, he states he is feeling better. He has an indwelling Mccloud catheter, 24 hour urine output documented at about 1400 mL. The patient is maintained on IV fluids. He denies any chest pains or shortness of breath. No diarrhea, nausea or vomiting. PHYSICAL EXAMINATION: On examination today, blood pressure this morning was 107/71, heart rate 84 per minute, he is afebrile. Examination of the heart S1, S2. Examination of the lungs, bilateral breath sounds are heard. Abdomen is soft, nontender. Examination of lower extremities shows chronic skin changes, chronic lower extremity edema. 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 LAB: Show hemoglobin 8.0, sodium 142, potassium 4.8, BUN 38, creatinine 3.7. Iron saturation was 14.6. ASSESSMENT: 1. Acute kidney injury, prerenal, currently maintained on IV fluids, renal function slightly improved. Patient has good urine output. I will continue with the IV fluids for now. 2. Chronic kidney disease stage 3A secondary to nephrosclerosis most likely diabetic kidney disease as well. Baseline creatinine 1.3-1.5. 3. Pyuria, rule out urinary tract infection. 4. Iron deficiency. PLAN: Continue with IV fluids. Repeat labs in a.m. MMODL / IJN: [id number] /
[2021-01-19] MEDS: SODIUM CHLORIDE 0.9% 1,000 ML IV SCH (15:53)
--- NOTE | 2021-01-19 16:45 | P.PN ---
Subjective Progress Note Date: 01/19/21 Principal diagnosis: Acute renal failure UTI 60-year-old male who [facility]. Patient states he went to rehab after he had surgery year ago and was never able to walk again. Patient was sent in per EMS because staff stated he might have urinary tract infection and they believe he has renal failure. Patient himself has no complaints and doesn't know why he was sent in and states she was unaware that there were going to send him. At this point time EMS that there was no further history and we did not get a call from the jail prior to the patient's arrival. Workup in ED including an EKG shows atrial fibrillation at 93 BPM; UA is positive; labs reviewed the CBC with white blood count of 6.3, hemoglobin 8.6, hematocrit 30.1 and platelet count of 295, sodium 138, potassium 5.1, BUN 91 with creatinine of 3.6 01/19/2021 Patient is seen and evaluated sitting comfortably in bed; denies any specific complaints; nursing staff concerned about superficial abdominal wall wound; wound care is consulted Vital signs remained stable; labs are reviewed revealing slight improvement in creatinine from 3.6 yesterday down to 3.20 Nephrology on board and recommending to continue with slow IV fluid hydration; avoid hypotension; continue to hold Lasix Urine culture remains pending; continue with current IV antibiotics Hemoglobin remained stable; iron studies are ordered and pending; nephrology added Aranesp Objective - Vital Signs Vital signs: Vital Signs Temp 98.3 F 01/19/21 04:42 Pulse 86 01/19/21 08:53 Resp 20 01/19/21 04:42 BP 107/71 01/19/21 04:42 Pulse Ox 94 L 01/19/21 04:42 Intake & Output 01/18/21 01/19/21 01/19/21 18:59 06:59 18:59 Intake Total 590 Output Total 800 600 Balance -800 -10 Weight 175.223 kg 174.293 kg Intake: Oral 590 Output: Urine 800 600 Straight 600 Other: Voiding Method Indwelling Catheter Indwelling Catheter Indwelling Catheter - Exam General appearance: Present: average body habitus, cooperative, no acute distress Neck: Present: normal ROM. Absent: lymphadenopathy, rigidity, thyromegaly Carotids: negative: bruit present Respiratory: bilateral: CTA, negative: rales, rhonchi, wheezing Rhythm: regular Heart sounds: normal: S1, S2 Abnormal Heart Sounds: Absent: systolic murmur, diastolic murmur General gastrointestinal: Present: normal bowel sounds, soft. Absent: distended, organomegaly, tenderness Genitourinary Comment(s): deferred Integumentary: Present: normal turgor. Absent: jaundiced, rash, ulcer Neurologic: Present: CNII-XII intact. Absent: focal deficits Musculoskeletal: Present: gait normal, strength equal bilaterally - Labs CBC & Chem 7: 01/19/21 05:42 01/19/21 05:42 Labs: Abnormal Lab Results - Last 24 Hours (Table) 01/18/21 01/18/21 01/18/21 Range/Units 06:35 06:35 10:22 RBC 3.06 L (4.40-5.60) X 10*6/uL Hgb 8.2 L (13.0-17.0) g/dL Hct 30.4 L (39.6-50.0) % MCV 99.3 H (80.0-97.0) fL MCH 26.8 L (27.0-32.0) pg MCHC 27.0 L (32.0-37.0) g/dL RDW 19.1 H (11.5-14.5) % Lymphocytes # (0.90-5.00) X 10*3/uL Carbon Dioxide 37.2 H (21.6-31.8) mmol/L Anion Gap (4.00-12.00) mmol/L BUN 85.0 H (9.0-27.0) mg/dL Creatinine 3.4 H (0.6-1.5) mg/dL Est GFR (CKD-EPI)AfAm 21.3 L (60.0-200.0) Est GFR (CKD-EPI)NonAf 18.4 L (60.0-200.0) BUN/Creatinine Ratio 25.00 H (12.00-20.00) Ratio POC Glucose (mg/dL) (75-99) mg/dL Iron 46 L (65-175) ug/dL % Saturation 14.60 L (15.00-50.00) 01/18/21 01/18/21 01/18/21 Range/Units 12:06 18:01 20:21 RBC (4.40-5.60) X 10*6/uL Hgb (13.0-17.0) g/dL Hct (39.6-50.0) % MCV (80.0-97.0) fL MCH (27.0-32.0) pg MCHC (32.0-37.0) g/dL RDW (11.5-14.5) % Lymphocytes # (0.90-5.00) X 10*3/uL Carbon Dioxide (21.6-31.8) mmol/L Anion Gap (4.00-12.00) mmol/L BUN (9.0-27.0) mg/dL Creatinine (0.6-1.5) mg/dL Est GFR (CKD-EPI)AfAm (60.0-200.0) Est GFR (CKD-EPI)NonAf (60.0-200.0) BUN/Creatinine Ratio (12.00-20.00) Ratio POC Glucose (mg/dL) 107 H 129 H 137 H (75-99) mg/dL Iron (65-175) ug/dL % Saturation (15.00-50.00) 01/19/21 01/19/21 01/19/21 Range/Units 05:42 05:42 07:44 RBC 3.04 L (4.40-5.60) X 10*6/uL Hgb 8.0 L (13.0-17.0) g/dL Hct 30.0 L (39.6-50.0) % MCV 98.7 H (80.0-97.0) fL MCH 26.3 L (27.0-32.0) pg MCHC 26.7 L (32.0-37.0) g/dL RDW 19.1 H (11.5-14.5) % Lymphocytes # 0.61 L (0.90-5.00) X 10*3/uL Carbon Dioxide 38.3 H (21.6-31.8) mmol/L Anion Gap 3.70 L (4.00-12.00) mmol/L BUN 79.0 H (9.0-27.0) mg/dL Creatinine 3.1 H (0.6-1.5) mg/dL Est GFR (CKD-EPI)AfAm 23.9 L (60.0-200.0) Est GFR (CKD-EPI)NonAf 20.6 L (60.0-200.0) BUN/Creatinine Ratio 25.48 H (12.00-20.00) Ratio POC Glucose (mg/dL) 109 H (75-99) mg/dL Iron (65-175) ug/dL % Saturation (15.00-50.00) 01/19/21 Range/Units 11:17 RBC (4.40-5.60) X 10*6/uL Hgb (13.0-17.0) g/dL Hct (39.6-50.0) % MCV (80.0-97.0) fL MCH (27.0-32.0) pg MCHC (32.0-37.0) g/dL RDW (11.5-14.5) % Lymphocytes # (0.90-5.00) X 10*3/uL Carbon Dioxide (21.6-31.8) mmol/L Anion Gap (4.00-12.00) mmol/L BUN (9.0-27.0) mg/dL Creatinine (0.6-1.5) mg/dL Est GFR (CKD-EPI)AfAm (60.0-200.0) Est GFR (CKD-EPI)NonAf (60.0-200.0) BUN/Creatinine Ratio (12.00-20.00) Ratio POC Glucose (mg/dL) 116 H (75-99) mg/dL Iron (65-175) ug/dL % Saturation (15.00-50.00) Microbiology - Last 24 Hours (Table) 01/17/21 12:09 Urine Culture - Preliminary Urine,Voided Gram Neg Bacilli 01/17/21 11:55 Blood Culture - Preliminary Blood No Growth after 24 hours 01/17/21 11:58 Blood Culture - Preliminary Blood No Growth after 24 hours Assessment and Plan Assessment: 1. Acute renal failure; slow IV fluid hydration in form of normal saline at rate of 75 mL an hour; we will monitor strict AYDE's, daily weights, renal function and electrolytes; avoid nephrotoxic agents; consult nephrology for further recommendations 2. Complicated UTI; patient started on Rocephin 1 g IV daily; we will await final urine culture results for final tailoring of antibiotic therapy 3. Anemia; possibly secondary to chronic kidney disease; we will continue with Protonix 40 mg daily; monitor H&H closely along with stool occult blood; we will consult GI if hemoglobin continues to drop or stool occult blood is positive 4. Uncontrolled hypertension; resume metoprolol 50 mg by mouth every 8 hours; hold off on Lasix daily renal function improves; we will monitor blood pressure closely and make adjustments to medications if blood pressure remains uncontrolled 5. Diabetes mellitus; not on any oral hypoglycemic agents; we will monitor Accu-Cheks every before meals and at bedtime with insulin sliding scale; consistent carbohydrate diet 6. Hyperlipidemia; Lipitor 40 mg by mouth daily at bedtime 7. COPD; not in exacerbation; continue with home inhaler therapy in form of Advair, DuoNeb nebulizer treatments 8. Atrial fibrillation; remains rate controlled with metoprolol 50 mg by mouth every 8 hours; remains anticoagulated with Eliquis 9. CAD/CHF; stable on aspirin, beta blockers, statins; patient takes Lasix 20 mg twice a day; we will hold off till renal function improves; we will continue with salt and fluid restricted diet; monitor strict AYDE's and daily weights DVT prophylaxis; SCDs/systemic anticoagulation CODE STATUS; full code
[2021-01-19 17:06] LABS: Glucose,Whole Blood 109 mg/dL (75-99)
[2021-01-19] MEDS: ACETAMINOPHEN TAB 325 MG TAB PO PRN (18:24)
[2021-01-19 20:43] LABS: Glucose,Whole Blood 173 mg/dL (75-99)
[2021-01-19] MEDS: ATORVASTATIN 40 MG TAB PO SCH (21:04)
[2021-01-19] MEDS: TAMSULOSIN 0.4 MG CAP.ER.24H PO SCH (21:04)
[2021-01-19 22:51] LABS: Hemoglobin A1C 4.8 % (4.0-6.0)
[2021-01-20] MEDS: ACETAMINOPHEN TAB 325 MG TAB PO PRN ×2 (02:21→08:47)
[2021-01-20 07:29] LABS: Glucose,Whole Blood 103 mg/dL (75-99)
[2021-01-20] MEDS: SODIUM FERRIC GLUCONAT-SUCROSE 125 MG in SODIUM CHLORIDE 0.9% 100 ML IVPB SCH (08:32)
[2021-01-20] MEDS: FAMOTIDINE 20 MG TAB PO SCH (08:47)
[2021-01-20] MEDS: PANTOPRAZOLE 40 MG TABLET PO SCH (08:47)
[2021-01-20] MEDS: APIXABAN 5 MG TAB PO SCH ×2 (08:47→21:11)
[2021-01-20] MEDS: ASPIRIN 81 MG PO SCH (08:47)
[2021-01-20] MEDS: FOLIC ACID 1 MG TAB PO SCH (08:47)
[2021-01-20] MEDS: METOPROLOL TARTRATE 50 MG TAB PO SCH ×3 (08:47→23:12)
[2021-01-20] MEDS: INSULIN ASPART (NovoLOG) 100 UNIT/ML VIAL SQ SCH ×4 (08:53→21:08)
[2021-01-20] MEDS: AMMONIUM LACTATE 12% LOTION 225 GM BTL TOPICAL SCH (08:53)
[2021-01-20] MEDS: SYMBICORT 80-4.5 MCG INHALER INHALATION SCH ×2 (08:53→20:42)
[2021-01-20] MEDS: FERROUS SULFATE 325 MG TAB PO SCH (08:54)
[2021-01-20] MEDS: SODIUM CHLORIDE 0.9% 1,000 ML IV SCH (08:55)
[2021-01-20 10:00] LABS: Basophils # (A) 0.07 X 10*3/uL (0.00-0.10); Basophils % (A) 1.2 %; Eosinophils # (A) 0.44 X 10*3/uL (0.04-0.35); Eosinophils % (A) 7.8 %; HCT 31.5 % (39.6-50.0); HGB 8.6 g/dL (13.0-17.0); Lymphocytes # (A) 0.78 X 10*3/uL (0.90-5.00); Lymphocytes % (A) 13.8 %; MCH 26.9 pg (27.0-32.0); MCHC 27.3 g/dL (32.0-37.0); MCV 98.4 fL (80.0-97.0); Mean Platelet Volume 10.6 fL (9.5-12.2); Monocytes # (A) 0.66 X 10*3/uL (0.20-1.00); Monocytes % (A) 11.7 %; Neutrophils # (A) 3.67 X 10*3/uL (1.80-7.70); Neutrophils % (A) 64.8 %; Platelet Count 222 X 10*3/uL (140-440); RDW 19.5 % (11.5-14.5); WBC 5.66 X 10*3/uL (4.50-10.00)
[2021-01-20] MEDS: ERTAPENEM 0.5 GM in SODIUM CHLORIDE 0.9% 50 ML IVPB SCH (11:17)
[2021-01-20 12:43] LABS: Glucose,Whole Blood 113 mg/dL (75-99)
--- NOTE | 2021-01-20 14:34 | PN ---
PROGRESS NOTE The patient is seen for followup for acute kidney injury on top of chronic kidney disease. Currently patient is being hydrated. Renal function has improved with creatinine down to 3.1 as of yesterday from 3.6 on initial admission. Patient has a Mccloud catheter with good urine output. A 24 hour output of about 1300 mL. PHYSICAL EXAMINATION: On examination today, blood pressure 109/60, heart rate 83 per minute. Patient is afebrile. Examination of lower extremities shows chronic skin changes with chronic edema, not worse. Abdomen is morbidly obese. 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 However, no significant motor deficits. No significant focal neurological signs noted. LABS: Labs are not available from today. Serum creatinine 3.1 as of 01/19/2021. ASSESSMENT: 1. Acute kidney injury prerenal, currently improving. 2. Chronic kidney disease, NKF stage 3 secondary to nephrosclerosis most likely diabetic kidney disease. Baseline creatinine 1.3-1.5 mg/dL. 3. Iron deficiency receiving IV iron. 4. Urinary tract infection with urine culture growing Klebsiella pneumoniae, maintained on antibiotics. 5. Anemia, mostly anemia of chronic disease as well as iron deficiency, status post IV iron. PLAN: Discontinue IV fluids. Encourage increased oral intake. Follow up as outpatient for CKD. MMODL / IJN: [id number] /
[2021-01-20] MEDS ORDERED: polyethylene glycoL 3350 17 GM POWD.PACK PO STA (15:07)
[2021-01-20 17:20] LABS: Glucose,Whole Blood 123 mg/dL (75-99)
[2021-01-20 17:56] LABS: Appearance,Urine Turbid (Clear); Bacteria,Urine Many /hpf; Bilirubin,Urine Negative (Negative); Blood,Urine Moderate (Negative); Budding Yeast,Urine Many /hpf; Color,Urine Yellow; Glucose,Urine (UA) Negative (Negative); Hyaline Casts,Urine 64 /lpf (0-2); Ketones,Urine Negative (Negative); Leukocyte Esterase,Urine Large (Negative); Mucus,Urine Moderate /hpf; Nitrite,Urine Negative (Negative); PH, Urine 5.5 (5.0-8.0); Protein,Urine 1+ (Negative); RBC,Urine 76 /hpf (0-5); Specific Gravity,Urine 1.015 (1.001-1.035); Squamous Epithelial Cell,Urine 7 /hpf (0-4); Urobilinogen,Urine <2.0 mg/dL (<2.0); WBC,Urine >182 /hpf (0-5)
[2021-01-20 20:42] LABS: Glucose,Whole Blood 129 mg/dL (75-99)
[2021-01-20] MEDS: ATORVASTATIN 40 MG TAB PO SCH (21:11)
[2021-01-20] MEDS: TAMSULOSIN 0.4 MG CAP.ER.24H PO SCH (21:11)
--- NOTE | 2021-01-20 23:40 | P.PN ---
Subjective Progress Note Date: 01/20/21 Principal diagnosis: Acute renal failure UTI-ESBL Klebsiella 60-year-old male who resides in a [facility]pc. Patient states he went to rehab after he had surgery year ago and was never able to walk again. Patient was sent in per EMS because staff stated he might have urinary tract infection and they believe he has renal failure. Patient himself has no complaints and doesn't know why he was sent in and states she was unaware that there were going to send him. At this point time EMS that there was no further history and we did not get a call from the fpc prior to the patient's arrival. Workup in ED including an EKG shows atrial fibrillation at 93 BPM; UA is positive; labs reviewed the CBC with white blood count of 6.3, hemoglobin 8.6, hematocrit 30.1 and platelet count of 295, sodium 138, potassium 5.1, BUN 91 with creatinine of 3.6 01/19/2021 Patient is seen and evaluated sitting comfortably in bed; denies any specific complaints; nursing staff concerned about superficial abdominal wall wound; wound care is consulted Vital signs remained stable; labs are reviewed revealing slight improvement in creatinine from 3.6 yesterday down to 3.20 Nephrology on board and recommending to continue with slow IV fluid hydration; avoid hypotension; continue to hold Lasix Urine culture remains pending; continue with current IV antibiotics Hemoglobin remained stable; iron studies are ordered and pending; nephrology added Aranesp 01/20/2021 Patient is currently lying in the bed comfortably. Awake alert and oriented x3. Patient is morbidly obese and bedridden. Currently being continued on IV hydration and renal function is improving slowly. Nephrology is on board. Blood sugar is better controlled. Hemoglobin is 8.6, MCV 98.4 and platelets 222.. RDW 19.5. Patient is iron deficient and is getting IV iron supplementation. Urine culture showed ESBL Klebsiella and IV antibiotics changed to ertapenem. ID was consulted. Monitor CBC and BMP tomorrow. Current medications reviewed. Objective - Vital Signs Vital signs: Vital Signs Temp 98.1 F 01/20/21 05:00 Pulse 83 01/20/21 05:00 Resp 20 01/20/21 05:00 BP 109/60 01/20/21 05:00 Pulse Ox 92 L 01/20/21 05:00 Intake & Output 01/19/21 01/20/21 01/20/21 18:59 06:59 18:59 Intake Total 850 Output Total 1300 Balance 850 -1300 Weight 176.901 kg Intake: Intake, IV Titration 850 Amount Sodium Chloride 0.9% 1, 700 000 ml @ 75 mls/hr IV . [id number] NIKA Rx#:[id number] Sodium Ferric Gluconat- 100 Sucrose 125 mg In Sodium Chloride 0.9% 100 ml @ 100 mls/hr IVPB DAILY NIKA Rx#:[id number] cefTRIAXone 2 gm In 50 Sodium Chloride 0.9% 50 ml @ 100 mls/hr IVPB Q24H NKIA Rx#:[id number] Output: Urine 1300 Other: Voiding Method Indwelling Catheter Indwelling Catheter - Exam PHYSICAL EXAMINATION: Patient is lying in the bed comfortably, no acute distress, awake alert and oriented..Morbidly obese. HEENT: Normocephalic. Neck is supple. Pupils reactive. Nostrils clear. Oral cavity is moist. Ears reveal no drainage. Neck reveals no JVD, carotid bruits, or thyromegaly. CHEST EXAMINATION: Trachea is central. Symmetrical expansion. Bibasilar diminished air entry.Lung jeffrey clear to auscultation and percussion. CARDIAC: Normal S1, S2 with no gallops. No murmurs ABDOMEN: Soft. Bowel sounds normal. No organomegaly. No abdominal bruits. Extremities: Bilateral lower extremity venous stasis and swelling with skin discoloration. Neurologically awake, alert, oriented x3 with well-coordinated movements. No focal deficits noted Skin: No rash or skin lesions. Psychiatric: Coperative. Nonsuicidal Musculoskeletal: No joint swelling or deformity. - Labs CBC & Chem 7: 01/20/21 04:50 01/19/21 05:42 Labs: Abnormal Lab Results - Last 24 Hours (Table) 01/19/21 01/19/21 01/19/21 Range/Units 11:17 17:05 20:41 RBC (4.40-5.60) X 10*6/uL Hgb (13.0-17.0) g/dL Hct (39.6-50.0) % MCV (80.0-97.0) fL MCH (27.0-32.0) pg MCHC (32.0-37.0) g/dL RDW (11.5-14.5) % Absolute Nucleated RBC (0.00-0.00) X 10*3/uL Lymphocytes # (0.90-5.00) X 10*3/uL Eosinophils # (0.04-0.35) X 10*3/uL NRBC/100 WBC Diff (0.0-0.0) /100 WBCS POC Glucose (mg/dL) 116 H 109 H 173 H (75-99) mg/dL 01/20/21 01/20/21 Range/Units 04:50 07:26 RBC 3.20 L (4.40-5.60) X 10*6/uL Hgb 8.6 L (13.0-17.0) g/dL Hct 31.5 L (39.6-50.0) % MCV 98.4 H (80.0-97.0) fL MCH 26.9 L (27.0-32.0) pg MCHC 27.3 L (32.0-37.0) g/dL RDW 19.5 H (11.5-14.5) % Absolute Nucleated RBC 0.02 H (0.00-0.00) X 10*3/uL Lymphocytes # 0.78 L (0.90-5.00) X 10*3/uL Eosinophils # 0.44 H (0.04-0.35) X 10*3/uL NRBC/100 WBC Diff 0.4 H (0.0-0.0) /100 WBCS POC Glucose (mg/dL) 103 H (75-99) mg/dL Microbiology - Last 24 Hours (Table) 01/17/21 12:09 Urine Culture - Final Urine,Voided Klebsiella pneumoniae 01/17/21 11:55 Blood Culture - Preliminary Blood No Growth after 48 hours 01/17/21 11:58 Blood Culture - Preliminary Blood No Growth after 48 hours Assessment and Plan Assessment: 1. Acute on CKD-3. likley prerenal ; slow IV fluid hydration in form of normal saline at rate of 75 mL an hour; we will monitor strict AYDE's, daily weights, renal function and electrolytes; avoid nephrotoxic agents; consult nephrology for further recommendations 2. ESBL UTI; complicated. patient started on Rocephin 1 g IV daily-->Ertapenam; 3. Anemia; possibly secondary to chronic kidney disease; we will continue with Protonix 40 mg daily; monitor H&H closely along with stool occult blood; we will consult GI if hemoglobin continues to drop or stool occult blood is positive 4. Uncontrolled hypertension; resume metoprolol 50 mg by mouth every 8 hours; hold off on Lasix daily renal function improves; we will monitor blood pressure closely and make adjustments to medications if blood pressure remains uncontrolled 5. Diabetes mellitus; not on any oral hypoglycemic agents; we will monitor Accu-Cheks every before meals and at bedtime with insulin sliding scale; consistent carbohydrate diet 6. Hyperlipidemia; Lipitor 40 mg by mouth daily at bedtime 7. COPD; not in exacerbation; continue with home inhaler therapy in form of Advair, DuoNeb nebulizer treatments 8. Chronic Atrial fibrillation; remains rate controlled with metoprolol 50 mg by mouth every 8 hours; remains anticoagulated with Eliquis 9. CAD/CHF; stable on aspirin, beta blockers, statins; patient takes Lasix 20 mg twice a day; we will hold off till renal function improves; we will continue with salt and fluid restricted diet; monitor strict AYDE's and daily weights DVT prophylaxis; SCDs/systemic anticoagulation CODE STATUS; full code Time with Patient: Greater than 30
--- NOTE | 2021-01-21 06:33 | CONS ---
CONSULTATION DATE OF SERVICE: 01/20/2021 REASON FOR CONSULTATION: ESBL Klebsiella urinary tract infection. HISTORY OF PRESENT ILLNESS: The patient is a 60-year-old male and half-way resident. Did have a urine retention, chronic indwelling Mccloud catheter. The patient is not sure exactly when the last time the Mccloud catheter was changed before presentation to hospital. The patient was sent to the ER with concern for UTI and renal failure. The patient did not have any symptoms on presentation to the hospital and did not know why the patient was sent to the ER in the first place. The patient on presentation to the hospital has been afebrile. The patient denies having any chest pain, shortness of breath or cough. No nausea, vomiting, abdominal pain, no diarrhea. Apparently the patient's Mccloud catheter has been changed in the ER. The patient did have a urine sample obtained on January 17 but not sure if it was from the previous or the new catheter. The patient antibiotic has been switched over to Invanz. Infectious Disease was consulted for further management of antibiotic therapy. REVIEW OF SYSTEMS: Positive points have been mentioned in HPI. Rest of systems are negative. PAST MEDICAL HISTORY: Chronic renal insufficiency, urinary retention requiring indwelling Mccloud catheter, atrial fibrillation, heart failure, COPD, diabetes mellitus, gastroesophageal reflux disease, hypertension, hyperlipidemia, osteoarthritis, sleep apnea, neuropathy. PAST SURGICAL HISTORY: Adenoidectomy and tonsillectomy. SOCIAL HISTORY: Remote history of smoking but admits to marijuana use. FAMILY HISTORY: Father with history of coronary disease and diabetes mellitus. Mother history of congestive heart failure and chronic obstructive pulmonary disease. ALLERGIES: BISACODYL. MEDICATIONS: The patient is currently on Tylenol, DuoNeb, Eliquis, aspirin, Lipitor, Symbicort, ertapenem 0.5 gram daily, iron sulfate, folic acid, NovoLog, Lopressor, Protonix, Flomax, . PHYSICAL EXAMINATION: VITAL SIGNS: Blood pressure 109/76 with a pulse of 94, temperature 97.3, he is 96% on 4 L nasal cannula. GENERAL DESCRIPTION: Patient is middle-aged male lying in bed in no distress. No tachypnea or accessory muscles of respiration use. HEENT: Examination shows pallor, no scleral icterus. Oral mucous membrane is dry. No pharyngeal erythema or thrush. NECK: Trachea central, no thyromegaly. LUNGS: Unlabored breathing, decreased intensity of breath sounds. No wheeze. HEART: S1-S2, regular rate and rhythm. ABDOMEN: Soft, no tenderness. No guarding or rigidity. EXTREMITIES: No edema of the feet. SKIN: No rash or mass palpable. NEUROLOGICAL: Patient is awake, alert, oriented times three. Mood and affect normal. LABS: Hemoglobin 8.6, white count 5.6, BUN of 79, creatinine 3.1. Urine has been positive culture with ESBL Klebsiella. Bowens PCR was negative. DIAGNOSTIC IMPRESSION: Patient with a positive urine culture with multidrug resistant Klebsiella with question of possible Mccloud colonization versus mild cystitis. Clinically doubt deep infection in this patient with no fever or elevated white count. PLAN: 1. RN has been advised to get a UA and culture from the new Mccloud. 2. Continue with ertapenem 0.5 g daily. Dose can been adjusted with kidney function. 3. We will follow on clinical condition as well as repeat culture and adjust medication further if needed. Thank you for this consultation. Will follow this patient along with you. MMODL / IJN: [id number] /
[2021-01-21] MEDS: SYMBICORT 80-4.5 MCG INHALER INHALATION SCH ×2 (07:12→20:50)
[2021-01-21 07:40] LABS: Glucose,Whole Blood 107 mg/dL (75-99)
[2021-01-21] MEDS: PANTOPRAZOLE 40 MG TABLET PO SCH (08:05)
[2021-01-21] MEDS: AMMONIUM LACTATE 12% LOTION 225 GM BTL TOPICAL SCH (08:05)
[2021-01-21] MEDS: METOPROLOL TARTRATE 50 MG TAB PO SCH ×3 (08:05→22:22)
[2021-01-21] MEDS: FOLIC ACID 1 MG TAB PO SCH (08:06)
[2021-01-21] MEDS: FERROUS SULFATE 325 MG TAB PO SCH (08:06)
[2021-01-21] MEDS: ASPIRIN 81 MG PO SCH (08:06)
[2021-01-21] MEDS: APIXABAN 5 MG TAB PO SCH ×2 (08:06→21:20)
[2021-01-21] MEDS: ERTAPENEM 0.5 GM in SODIUM CHLORIDE 0.9% 50 ML IVPB SCH (08:06)
[2021-01-21] MEDS: INSULIN ASPART (NovoLOG) 100 UNIT/ML VIAL SQ SCH ×4 (08:07→21:03)
[2021-01-21 08:38] LABS: Basophils # (A) 0.06 X 10*3/uL (0.00-0.10); Basophils % (A) 1.2 %; Eosinophils # (A) 0.44 X 10*3/uL (0.04-0.35); Eosinophils % (A) 8.4 %; HGB 8.4 g/dL (13.0-17.0); Lymphocytes # (A) 0.71 X 10*3/uL (0.90-5.00); Lymphocytes % (A) 13.6 %; MCH 26.4 pg (27.0-32.0); MCHC 26.3 g/dL (32.0-37.0); MCV 100.6 fL (80.0-97.0); Mean Platelet Volume 10.6 fL (9.5-12.2); Monocytes # (A) 0.56 X 10*3/uL (0.20-1.00); Monocytes % (A) 10.7 %; Neutrophils # (A) 3.42 X 10*3/uL (1.80-7.70); Neutrophils % (A) 65.7 %; Platelet Count 243 X 10*3/uL (140-440); RBC 3.18 X 10*6/uL (4.40-5.60); WBC 5.21 X 10*3/uL (4.50-10.00)
[2021-01-21 09:23] LABS: BUN/Creat Ratio 27.5 Ratio (12.00-20.00); Calcium 8.8 mg/dL (8.7-10.3); Non-African American GFR(CKD) 23.3 (60.0-200.0)
[2021-01-21] MEDS: SODIUM FERRIC GLUCONAT-SUCROSE 125 MG in SODIUM CHLORIDE 0.9% 100 ML IVPB SCH (09:35)
[2021-01-21 11:20] LABS: Glucose,Whole Blood 106 mg/dL (75-99)
--- NOTE | 2021-01-21 16:01 | PN ---
PROGRESS NOTE Patient is seen for followup for acute kidney injury on top of chronic kidney disease. Renal function has improved. Serum creatinine down to 2.8 from 3.6. The patient had been on IV fluids. His baseline creatinine is about 1.6-1.7 mg/dL. Currently being treated for Klebsiella pneumoniae urinary tract infection. PHYSICAL EXAMINATION: Blood pressure is 113/67, heart rate 77 per minute. Patient is afebrile. Examination reveals chronic edema lower extremities with chronic skin changes. Abdomen is soft, morbidly obese. 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 LABS: Labs show hemoglobin 8.4, sodium 142, potassium 5.0, BUN of 77, creatinine 2.8. ASSESSMENT: 1. Acute kidney injury, prerenal, currently improved. 2. Urinary tract infection with urine culture growing Klebsiella pneumoniae. 3. Iron deficiency, status post IV iron. 4. Anemia, mostly anemia of chronic disease as well as iron deficiency, status post IV iron. 5. Chronic kidney disease stage 3 secondary to nephrosclerosis as well as diabetic nephropathy. Baseline creatinine about 1.5 mg/dL. PLAN: Continue to encourage increased oral intake. We will likely resume diuretics at the time of discharge. MMODL / IJN: [id number] /
[2021-01-21] MEDS: ACETAMINOPHEN TAB 325 MG TAB PO PRN (16:54)
[2021-01-21 17:31] LABS: Glucose,Whole Blood 117 mg/dL (75-99)
[2021-01-21] MEDS ORDERED: HYDROcodone/APAP 5-325MG 1 EACH TAB PO ONE (18:10)
[2021-01-21 20:28] LABS: Glucose,Whole Blood 119 mg/dL (75-99)
[2021-01-21] MEDS: TAMSULOSIN 0.4 MG CAP.ER.24H PO SCH (21:20)
[2021-01-21] MEDS: ATORVASTATIN 40 MG TAB PO SCH (21:20)
--- NOTE | 2021-01-22 01:38 | PN ---
PROGRESS NOTE DATE OF SERVICE: 01/21/2021 REASON FOR FOLLOWUP: ESBL E coli urinary tract infection. INTERVAL HISTORY: The patient is currently afebrile. The patient is breathing comfortably. Denies having any chest pain, shortness of breath or cough. No nausea, no vomiting. No abdominal pain or diarrhea. PHYSICAL EXAMINATION: Blood pressure 128/67, pulse of 74, temperature 97.7. She is 100% on 4 L nasal cannula. General description is a middle-aged female lying in bed in no distress. Respiratory system: Unlabored breathing, clear to auscultation anteriorly. Heart S1, S2. Regular rate and rhythm. Abdomen: Soft, no tenderness. LABS: Hemoglobin 8.4, white count 5.21. BUN of 77, creatinine is 2.8. DIAGNOSTIC IMPRESSION AND PLAN: Patient with Klebsiella urinary tract infection, ESBL pathogen. The patient is currently covered with Invanz. Repeat UA is positive. Cultures are pending with discharge antibiotic depending on the repeat cultures. Continue supportive care. MMODL / IJN: [id number] /
[2021-01-22 06:59] LABS: Glucose,Whole Blood 105 mg/dL (75-99)
[2021-01-22] MEDS: APIXABAN 5 MG TAB PO SCH ×2 (07:54→20:33)
[2021-01-22] MEDS: PANTOPRAZOLE 40 MG TABLET PO SCH (07:54)
[2021-01-22] MEDS: ASPIRIN 81 MG PO SCH (07:54)
[2021-01-22] MEDS: FERROUS SULFATE 325 MG TAB PO SCH (07:55)
[2021-01-22] MEDS: FOLIC ACID 1 MG TAB PO SCH (07:55)
[2021-01-22] MEDS: ERTAPENEM 0.5 GM in SODIUM CHLORIDE 0.9% 50 ML IVPB SCH (07:55)
[2021-01-22] MEDS: AMMONIUM LACTATE 12% LOTION 225 GM BTL TOPICAL SCH (07:56)
[2021-01-22] MEDS: INSULIN ASPART (NovoLOG) 100 UNIT/ML VIAL SQ SCH ×4 (07:59→20:33)
[2021-01-22] MEDS: METOPROLOL TARTRATE 50 MG TAB PO SCH ×3 (08:00→23:38)
[2021-01-22] MEDS: SYMBICORT 80-4.5 MCG INHALER INHALATION SCH ×2 (09:21→20:31)
[2021-01-22 10:52] LABS: Basophils # (A) 0.06 X 10*3/uL (0.00-0.10); Basophils % (A) 1.3 %; Eosinophils # (A) 0.36 X 10*3/uL (0.04-0.35); Eosinophils % (A) 7.6 %; HCT 33.1 % (39.6-50.0); HGB 8.7 g/dL (13.0-17.0); Lymphocytes # (A) 0.63 X 10*3/uL (0.90-5.00); Lymphocytes % (A) 13.2 %; MCH 26.8 pg (27.0-32.0); MCHC 26.3 g/dL (32.0-37.0); MCV 101.8 fL (80.0-97.0); Mean Platelet Volume 10.6 fL (9.5-12.2); Monocytes # (A) 0.52 X 10*3/uL (0.20-1.00); Monocytes % (A) 10.9 %; Neutrophils # (A) 3.15 X 10*3/uL (1.80-7.70); Neutrophils % (A) 66.2 %; Platelet Count 205 X 10*3/uL (140-440); RBC 3.25 X 10*6/uL (4.40-5.60); RDW 18.8 % (11.5-14.5); WBC 4.76 X 10*3/uL (4.50-10.00)
[2021-01-22 11:21] LABS: Glucose,Whole Blood 112 mg/dL (75-99)
[2021-01-22 13:04] LABS: African American GFR (CKD) 23.9 (60.0-200.0); Anion Gap 14.6 mmol/L (4.00-12.00); BUN/Creat Ratio 25.81 Ratio (12.00-20.00); Calcium 8.7 mg/dL (8.7-10.3); Carbon Dioxide 25.4 mmol/L (21.6-31.8); Non-African American GFR(CKD) 20.6 (60.0-200.0); Potassium 5.4 mmol/L (3.5-5.5)
[2021-01-22] MEDS ORDERED: SODIUM CHLORIDE 0.9% 500 ML 250 ML IV ONE (15:24)
--- NOTE | 2021-01-22 16:12 | CDI ---
Documentation Clarification Form Date: 01/22/2021 04:01:41 PM From: Cindy Villarreal CCS, CCDS Admit Date: 01/17/2021 01:25:00 PM Patient Name: Arnold Alfredo Visit Number: [id number] Discharge Date: ATTENTION: The Clinical Documentation Specialists (CDI) and [facility] Coding Staff appreciate your assistance in clarifying documentation. Please respond to the clarification below the line at the bottom and electronically sign. The CDI & [facility] Coding staff will review the response and follow-up if needed. Please note: Queries are made part of the Legal Health Record. If you have any questions, please contact the author of this message via ITS. Dr. Stephany Rodriguez: CHF is documented in the patient's Medical History in the 01/17 ED Note, the 01/17 History & Physical and in subsequent Progress Notes without further specificity. Per the Attending Progress Notes 01/18 - 01/20: "CAD/CHF, stable on Aspirin, beta blockers, statins; patient takes Lasix 20 mg twice a day; we will hold off till renal function improves; we will continue with salt and fluid restricted diet; monitor strict I&O's and daily weights." History/Risk Factors per the patient's documented Medical History beginning with the 01/17 ED Note: CHF, COPD, CAD, Atrial Fibrillation, DM, Hypertension, Hyperlipidemia, SUNIL, OA, MRSA. Per the 01/18 Nephrology Consult the patient has CKD stage 3a secondary to Nephrosclerosis and most likely Diabetic Kidney Disease, Anemia of Chronic Disease and Iron Deficiency. Clinical Indicators: Presented to the ED 01/17 via EMS from a [facility] with a UTI & Renal Failure. Echocardiogram Results (most recent 07/08/2020): Severe left ventricular hypertrophy. Left ventricular systolic function is mildly impaired with EF 45- 50%. Chest X Ray: No recent CXR Home meds: Lasix 20 mg BID, Lopressor, INH Duoneb q8H, Eliquis, INH Advair BID, Lipitor Treatment 01/17: IV Rocephin, IV fluid 1,000 mls @ 75 mls/hr q13H, INH Duoneb q8H, po Eliquis Lasix is held until renal function improves. In your professional opinion, can you please clarify the acuity and type of CHF if known? [ ] Systolic Heart Failure: [ ] Acute [ ] Chronic [ ] Acute on Chronic [ ] Diastolic Heart Failure: [ ] Acute [ ] Chronic [ ] Acute on Chronic [ ] Systolic & Diastolic Heart Failure: [ ] Acute [ ] Chronic [ ] Acute on Chronic Heart Failure [ ] Unable to Determine [ ] Other, please specify (Last Revision: January 2018) MTDD
[2021-01-22 17:20] LABS: Glucose,Whole Blood 132 mg/dL (75-99)
[2021-01-22 20:14] LABS: Glucose,Whole Blood 137 mg/dL (75-99)
[2021-01-22] MEDS: ATORVASTATIN 40 MG TAB PO SCH (20:33)
[2021-01-22] MEDS: TAMSULOSIN 0.4 MG CAP.ER.24H PO SCH (20:33)
--- NOTE | 2021-01-22 21:49 | PN ---
PROGRESS NOTE Patient is seen for followup for chronic kidney disease and acute kidney injury. He is currently doing well. Patient denies any significant complaints. Yesterday his blood pressure had dropped and has been low, around 90s for systolic blood pressure. Urine output for 24 hours was lower at about 500 mL. PHYSICAL EXAMINATION: EXAMINATION OF THE HEART: S1 and S2. EXAMINATION OF LUNGS: Bilateral breath sounds are heard. ABDOMEN: Soft, morbidly obese. Examination of lower extremities shows chronic skin changes, chronic edema. 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 Blood pressure this morning 108/53, heart rate 105 per minute. LABS: Sodium 142, potassium 5.4, chloride 102. BUN 80, creatinine 3.1. ASSESSMENT: 1. Chronic kidney disease, NKF stage IV. Serum creatinine baseline around 3. It had dropped to 2.8 yesterday and it is back to 3.1 today. There may be a component of mild acute kidney injury associated with hypotension. Continue to monitor urine output. Patient is not on any nephrotoxic medications. No significant blood pressure medications. The Lopressor is currently on hold. 2. Anemia, status post packed RBCs transfusion, maintained on Aranesp, status post IV iron as well. 3. Chronic lower extremity edema. 4. Hypotension. Blood pressure has been on the lower side. Patient does have urinary tract infection. Lopressor was held today. 5. Urinary tract infection with urine culture growing Klebsiella pneumoniae, maintained on antibiotics. PLAN: Add parameters for Lopressor. Repeat labs in a.m. Continue with Flomax. I will add midodrine if blood pressure remains low. MMODL / IJN: [id number] /
--- NOTE | 2021-01-23 00:17 | P.PN ---
Subjective Progress Note Date: 01/21/21 Principal diagnosis: Acute renal failure UTI-ESBL Klebsiella 60-year-old male who resides in a [facility]-way. Patient states he went to rehab after he had surgery year ago and was never able to walk again. Patient was sent in per EMS because staff stated he might have urinary tract infection and they believe he has renal failure. Patient himself has no complaints and doesn't know why he was sent in and states she was unaware that there were going to send him. At this point time EMS that there was no further history and we did not get a call from the half-way prior to the patient's arrival. Workup in ED including an EKG shows atrial fibrillation at 93 BPM; UA is positive; labs reviewed the CBC with white blood count of 6.3, hemoglobin 8.6, hematocrit 30.1 and platelet count of 295, sodium 138, potassium 5.1, BUN 91 with creatinine of 3.6 01/19/2021 Patient is seen and evaluated sitting comfortably in bed; denies any specific complaints; nursing staff concerned about superficial abdominal wall wound; wound care is consulted Vital signs remained stable; labs are reviewed revealing slight improvement in creatinine from 3.6 yesterday down to 3.20 Nephrology on board and recommending to continue with slow IV fluid hydration; avoid hypotension; continue to hold Lasix Urine culture remains pending; continue with current IV antibiotics Hemoglobin remained stable; iron studies are ordered and pending; nephrology added Aranesp 01/20/2021 Patient is currently lying in the bed comfortably. Awake alert and oriented x3. Patient is morbidly obese and bedridden. Currently being continued on IV hydration and renal function is improving slowly. Nephrology is on board. Blood sugar is better controlled. Hemoglobin is 8.6, MCV 98.4 and platelets 222.. RDW 19.5. Patient is iron deficient and is getting IV iron supplementation. Urine culture showed ESBL Klebsiella and IV antibiotics changed to ertapenem. ID was consulted. Monitor CBC and BMP tomorrow. 01/21/2021 Patient is currently resting in the bed comfortably. Denied any complaints of chest pain or shortness of breath. No nausea vomiting. Blood pressures 121/62 and is requiring 4 L oxygen via nasal cannula. Blood sugars better controlled. Laboratory data showed BUN 77 and creatinine 2.8, WBC 5.2, hemoglobin 8.4 and platelets 243 Patient is being continued on ertapenem for ESBL Klebsiella and nephrology is on board. Current medications reviewed. Objective - Vital Signs Vital signs: Vital Signs Temp 98.3 F 01/21/21 15:22 Pulse 93 01/21/21 15:22 Resp 16 01/21/21 15:22 BP 121/73 01/21/21 15:22 Pulse Ox 98 01/21/21 15:22 Intake & Output 01/20/21 01/21/21 01/21/21 18:59 06:59 18:59 Intake Total 1140 1180 Output Total 450 800 Balance 690 380 Weight 177.014 kg Intake: Intake, IV Titration 900 240 Amount Sodium Chloride 0.9% 1, 900 240 000 ml @ 75 mls/hr IV . [id number] NIKA Rx#:[id number] Oral 240 940 Output: Urine 450 800 Straight 800 Other: Voiding Method Indwelling Catheter Indwelling Catheter Indwelling Catheter # Bowel Movements 1 - Exam PHYSICAL EXAMINATION: Patient is lying in the bed comfortably, no acute distress, awake alert and oriented..Morbidly obese. HEENT: Normocephalic. Neck is supple. Pupils reactive. Nostrils clear. Oral cavity is moist. Ears reveal no drainage. Neck reveals no JVD, carotid bruits, or thyromegaly. CHEST EXAMINATION: Trachea is central. Symmetrical expansion. Bibasilar diminished air entry.Lung jeffrey clear to auscultation and percussion. CARDIAC: Normal S1, S2 with no gallops. No murmurs ABDOMEN: Soft. Bowel sounds normal. No organomegaly. No abdominal bruits. Extremities: Bilateral lower extremity venous stasis and swelling with skin discoloration. Neurologically awake, alert, oriented x3 with well-coordinated movements. No focal deficits noted Skin: No rash or skin lesions. Psychiatric: Coperative. Nonsuicidal Musculoskeletal: No joint swelling or deformity. - Labs CBC & Chem 7: 01/22/21 07:20 01/22/21 07:20 Labs: Abnormal Lab Results - Last 24 Hours (Table) 01/20/21 01/20/21 01/20/21 Range/Units 17:19 17:27 20:40 RBC (4.40-5.60) X 10*6/uL Hgb (13.0-17.0) g/dL Hct (39.6-50.0) % MCV (80.0-97.0) fL MCH (27.0-32.0) pg MCHC (32.0-37.0) g/dL RDW (11.5-14.5) % Absolute Nucleated RBC (0.00-0.00) X 10*3/uL Lymphocytes # (0.90-5.00) X 10*3/uL Eosinophils # (0.04-0.35) X 10*3/uL NRBC/100 WBC Diff (0.0-0.0) /100 WBCS Carbon Dioxide (21.6-31.8) mmol/L BUN (9.0-27.0) mg/dL Creatinine (0.6-1.5) mg/dL Est GFR (CKD-EPI)AfAm (60.0-200.0) Est GFR (CKD-EPI)NonAf (60.0-200.0) BUN/Creatinine Ratio (12.00-20.00) Ratio Glucose (70-110) mg/dL POC Glucose (mg/dL) 123 H 129 H (75-99) mg/dL Urine Protein 1+ H (Negative) Urine Blood Moderate H (Negative) Ur Leukocyte Esterase Large H (Negative) Urine RBC 76 H (0-5) /hpf Urine WBC >182 H (0-5) /hpf Urine WBC Clumps Many H (None) /hpf Ur Squamous Epith Cells 7 H (0-4) /hpf Urine Bacteria Many H (None) /hpf Hyaline Casts 64 H (0-2) /lpf Urine Mucus Moderate H (None) /hpf Urine Yeast (Budding) Many H (None) /hpf 01/21/21 01/21/21 01/21/21 Range/Units 04:19 04:19 07:38 RBC 3.18 L (4.40-5.60) X 10*6/uL Hgb 8.4 L (13.0-17.0) g/dL Hct 32.0 L (39.6-50.0) % MCV 100.6 H (80.0-97.0) fL MCH 26.4 L (27.0-32.0) pg MCHC 26.3 L (32.0-37.0) g/dL RDW 19.0 H (11.5-14.5) % Absolute Nucleated RBC 0.02 H (0.00-0.00) X 10*3/uL Lymphocytes # 0.71 L (0.90-5.00) X 10*3/uL Eosinophils # 0.44 H (0.04-0.35) X 10*3/uL NRBC/100 WBC Diff 0.4 H (0.0-0.0) /100 WBCS Carbon Dioxide 33.0 H (21.6-31.8) mmol/L BUN 77.0 H (9.0-27.0) mg/dL Creatinine 2.8 H (0.6-1.5) mg/dL Est GFR (CKD-EPI)AfAm 27.0 L (60.0-200.0) Est GFR (CKD-EPI)NonAf 23.3 L (60.0-200.0) BUN/Creatinine Ratio 27.50 H (12.00-20.00) Ratio Glucose 128 H (70-110) mg/dL POC Glucose (mg/dL) 107 H (75-99) mg/dL Urine Protein (Negative) Urine Blood (Negative) Ur Leukocyte Esterase (Negative) Urine RBC (0-5) /hpf Urine WBC (0-5) /hpf Urine WBC Clumps (None) /hpf Ur Squamous Epith Cells (0-4) /hpf Urine Bacteria (None) /hpf Hyaline Casts (0-2) /lpf Urine Mucus (None) /hpf Urine Yeast (Budding) (None) /hpf 01/21/21 Range/Units 11:19 RBC (4.40-5.60) X 10*6/uL Hgb (13.0-17.0) g/dL Hct (39.6-50.0) % MCV (80.0-97.0) fL MCH (27.0-32.0) pg MCHC (32.0-37.0) g/dL RDW (11.5-14.5) % Absolute Nucleated RBC (0.00-0.00) X 10*3/uL Lymphocytes # (0.90-5.00) X 10*3/uL Eosinophils # (0.04-0.35) X 10*3/uL NRBC/100 WBC Diff (0.0-0.0) /100 WBCS Carbon Dioxide (21.6-31.8) mmol/L BUN (9.0-27.0) mg/dL Creatinine (0.6-1.5) mg/dL Est GFR (CKD-EPI)AfAm (60.0-200.0) Est GFR (CKD-EPI)NonAf (60.0-200.0) BUN/Creatinine Ratio (12.00-20.00) Ratio Glucose (70-110) mg/dL POC Glucose (mg/dL) 106 H (75-99) mg/dL Urine Protein (Negative) Urine Blood (Negative) Ur Leukocyte Esterase (Negative) Urine RBC (0-5) /hpf Urine WBC (0-5) /hpf Urine WBC Clumps (None) /hpf Ur Squamous Epith Cells (0-4) /hpf Urine Bacteria (None) /hpf Hyaline Casts (0-2) /lpf Urine Mucus (None) /hpf Urine Yeast (Budding) (None) /hpf Microbiology - Last 24 Hours (Table) 01/17/21 11:55 Blood Culture - Preliminary Blood No Growth after 96 hours 01/17/21 11:58 Blood Culture - Preliminary Blood No Growth after 96 hours Assessment and Plan Assessment: 1. Acute on CKD-4. likley prerenal ; slow IV fluid hydration in form of normal saline at rate of 75 mL an hour; we will monitor strict AYDE's, daily weights, renal function and electrolytes; avoid nephrotoxic agents; consult nephrology for further recommendations 2. ESBL UTI; complicated. patient started on Rocephin 1 g IV daily-->Ertapenam; 3. Anemia; possibly secondary to chronic kidney disease; we will continue with Protonix 40 mg daily; monitor H&H closely along with stool occult blood; we will consult GI if hemoglobin continues to drop or stool occult blood is positive 4. Uncontrolled hypertension; resume metoprolol 50 mg by mouth every 8 hours; hold off on Lasix daily renal function improves; we will monitor blood pressure closely and make adjustments to medications if blood pressure remains uncontrolled 5. Diabetes mellitus; not on any oral hypoglycemic agents; we will monitor Accu-Cheks every before meals and at bedtime with insulin sliding scale; consist ent carbohydrate diet 6. Hyperlipidemia; Lipitor 40 mg by mouth daily at bedtime 7. COPD; not in exacerbation; continue with home inhaler therapy in form of Advair, DuoNeb nebulizer treatments 8. Chronic Atrial fibrillation; remains rate controlled with metoprolol 50 mg by mouth every 8 hours; remains anticoagulated with Eliquis 9. CAD/CHF; stable on aspirin, beta blockers, statins; patient takes Lasix 20 mg twice a day; we will hold off till renal function improves; we will continue with salt and fluid restricted diet; monitor strict AYDE's and daily weights DVT prophylaxis; SCDs/systemic anticoagulation CODE STATUS; full code Time with Patient: Greater than 30
--- NOTE | 2021-01-23 00:21 | P.PN ---
Subjective Progress Note Date: 01/22/21 Principal diagnosis: Acute renal failure UTI-ESBL Klebsiella 60-year-old male who resides in a [facility]. Patient states he went to rehab after he had surgery year ago and was never able to walk again. Patient was sent in per EMS because staff stated he might have urinary tract infection and they believe he has renal failure. Patient himself has no complaints and doesn't know why he was sent in and states she was unaware that there were going to send him. At this point time EMS that there was no further history and we did not get a call from the [facility] prior to the patient's arrival. Workup in ED including an EKG shows atrial fibrillation at 93 BPM; UA is positive; labs reviewed the CBC with white blood count of 6.3, hemoglobin 8.6, hematocrit 30.1 and platelet count of 295, sodium 138, potassium 5.1, BUN 91 with creatinine of 3.6 01/19/2021 Patient is seen and evaluated sitting comfortably in bed; denies any specific complaints; nursing staff concerned about superficial abdominal wall wound; wound care is consulted Vital signs remained stable; labs are reviewed revealing slight improvement in creatinine from 3.6 yesterday down to 3.20 Nephrology on board and recommending to continue with slow IV fluid hydration; avoid hypotension; continue to hold Lasix Urine culture remains pending; continue with current IV antibiotics Hemoglobin remained stable; iron studies are ordered and pending; nephrology added Aranesp 01/20/2021 Patient is currently lying in the bed comfortably. Awake alert and oriented x3. Patient is morbidly obese and bedridden. Currently being continued on IV hydration and renal function is improving slowly. Nephrology is on board. Blood sugar is better controlled. Hemoglobin is 8.6, MCV 98.4 and platelets 222.. RDW 19.5. Patient is iron deficient and is getting IV iron supplementation. Urine culture showed ESBL Klebsiella and IV antibiotics changed to ertapenem. ID was consulted. Monitor CBC and BMP tomorrow. 01/21/2021 Patient is currently resting in the bed comfortably. Denied any complaints of chest pain or shortness of breath. No nausea vomiting. Blood pressures 121/62 and is requiring 4 L oxygen via nasal cannula. Blood sugars better controlled. Laboratory data showed BUN 77 and creatinine 2.8, WBC 5.2, hemoglobin 8.4 and platelets 243 Patient is being continued on ertapenem for ESBL Klebsiella and nephrology is on board. 01/22/2021 Patient is currently awake alert oriented x3. No complaints of chest pain or shortness breath. However his blood pressure is low today and creatinine level increased to 3.1 compared to yesterday. No fever no chills. No nausea vomiting or abdominal pain. No diarrhea. will reduce dose of blood pressure medications and monitor renal function. Nephrology managing on board. Continued on antibiotics for home creatinine. Current medications reviewed. Objective - Vital Signs Vital signs: Vital Signs Temp 98.7 F 01/22/21 15:38 Pulse 99 01/22/21 15:38 Resp 16 01/22/21 15:38 BP 110/55 01/22/21 16:12 Pulse Ox 95 01/22/21 15:38 Intake & Output 01/21/21 01/22/21 01/22/21 18:59 06:59 18:59 Intake Total 200 400 Output Total 500 600 Balance -300 400 -600 Weight 178.857 kg Intake: Intake, IV Titration 200 Amount Ertapenem 0.5 gm In 100 Sodium Chloride 0.9% 50 ml @ 100 mls/hr IVPB DAILY NIKA Rx#:[id number] Sodium Ferric Gluconat- 100 Sucrose 125 mg In Sodium Chloride 0.9% 100 ml @ 100 mls/hr IVPB DAILY NIKA Rx#:[id number] Oral 400 Output: Urine 500 600 Other: Voiding Method Indwelling Catheter Indwelling Catheter Indwelling Catheter # Bowel Movements 1 - Exam PHYSICAL EXAMINATION: Patient is lying in the bed comfortably, no acute distress, awake alert and oriented..Morbidly obese. HEENT: Normocephalic. Neck is supple. Pupils reactive. Nostrils clear. Oral cavity is moist. Ears reveal no drainage. Neck reveals no JVD, carotid bruits, or thyromegaly. CHEST EXAMINATION: Trachea is central. Symmetrical expansion. Bibasilar diminished air entry.Lung jeffrey clear to auscultation and percussion. CARDIAC: Normal S1, S2 with no gallops. No murmurs ABDOMEN: Soft. Bowel sounds normal. No organomegaly. No abdominal bruits. Extremities: Bilateral lower extremity venous stasis and swelling with skin discoloration. Neurologically awake, alert, oriented x3 with well-coordinated movements. No focal deficits noted Skin: No rash or skin lesions. Psychiatric: Coperative. Nonsuicidal Musculoskeletal: No joint swelling or deformity. - Labs CBC & Chem 7: 01/22/21 07:20 01/22/21 07:20 Labs: Abnormal Lab Results - Last 24 Hours (Table) 01/21/21 01/21/21 01/22/21 Range/Units 17:30 20:27 06:53 RBC (4.40-5.60) X 10*6/uL Hgb (13.0-17.0) g/dL Hct (39.6-50.0) % MCV (80.0-97.0) fL MCH (27.0-32.0) pg MCHC (32.0-37.0) g/dL RDW (11.5-14.5) % Lymphocytes # (0.90-5.00) X 10*3/uL Eosinophils # (0.04-0.35) X 10*3/uL Anion Gap (4.00-12.00) mmol/L BUN (9.0-27.0) mg/dL Creatinine (0.6-1.5) mg/dL Est GFR (CKD-EPI)AfAm (60.0-200.0) Est GFR (CKD-EPI)NonAf (60.0-200.0) BUN/Creatinine Ratio (12.00-20.00) Ratio POC Glucose (mg/dL) 117 H 119 H 105 H (75-99) mg/dL 01/22/21 01/22/21 01/22/21 Range/Units 07:20 07:20 11:03 RBC 3.25 L (4.40-5.60) X 10*6/uL Hgb 8.7 L (13.0-17.0) g/dL Hct 33.1 L (39.6-50.0) % MCV 101.8 H (80.0-97.0) fL MCH 26.8 L (27.0-32.0) pg MCHC 26.3 L (32.0-37.0) g/dL RDW 18.8 H (11.5-14.5) % Lymphocytes # 0.63 L (0.90-5.00) X 10*3/uL Eosinophils # 0.36 H (0.04-0.35) X 10*3/uL Anion Gap 14.60 H (4.00-12.00) mmol/L BUN 80.0 H (9.0-27.0) mg/dL Creatinine 3.1 H (0.6-1.5) mg/dL Est GFR (CKD-EPI)AfAm 23.9 L (60.0-200.0) Est GFR (CKD-EPI)NonAf 20.6 L (60.0-200.0) BUN/Creatinine Ratio 25.81 H (12.00-20.00) Ratio POC Glucose (mg/dL) 112 H (75-99) mg/dL Microbiology - Last 24 Hours (Table) 01/17/21 11:55 Blood Culture - Preliminary Blood No Growth after 120 hours 01/17/21 11:58 Blood Culture - Preliminary Blood No Growth after 120 hours Assessment and Plan Assessment: 1. Acute on CKD-4. likley prerenal ; IV fluids on hold. Encourage oral intake. we will monitor strict AYDE's, daily weights, renal function and electrolytes; avoid nephrotoxic agents; consult nephrology for further recommendations 2. ESBL UTI; complicated. patient started on Rocephin 1 g IV daily-->Ertapenam; 3. Anemia; possibly secondary to chronic kidney disease; we will continue with Protonix 40 mg daily; monitor H&H closely along with stool occult blood; we will consult GI if hemoglobin continues to drop or stool occult blood is positive 4. Uncontrolled hypertension; resume metoprolol 50 mg by mouth every 8 hours; hold off on Lasix daily renal function improves; Currently patient is hypotensive. we will monitor blood pressure closely and make adjustments to medications if blood pressure remains uncontrolled 5. Diabetes mellitus; not on any oral hypoglycemic agents; we will monitor Accu-Cheks every before meals and at bedtime with insulin sliding scale; consistent carbohydrate diet 6. Hyperlipidemia; Lipitor 40 mg by mouth daily at bedtime 7. COPD; not in exacerbation; continue with home inhaler therapy in form of Advair, DuoNeb nebulizer treatments 8. Chronic Atrial fibrillation; remains rate controlled with metoprolol 50 mg by mouth every 8 hours; remains anticoagulated with Eliquis 9. CAD/CHF; stable on aspirin, beta blockers, statins; patient takes Lasix 20 mg twice a day; we will hold off till renal function improves; we will continue with salt and fluid restricted diet; monitor strict AYDE's and daily weights DVT prophylaxis; SCDs/systemic anticoagulation CODE STATUS; full code Time with Patient: Greater than 30
[2021-01-23 01:12] LABS: Amorphous Sediment,Urine Few /hpf; Appearance,Urine Cloudy (Clear); Bilirubin,Urine Negative (Negative); Blood,Urine Moderate (Negative); Color,Urine Yellow; Glucose,Urine (UA) Negative (Negative); Hyaline Casts,Urine 15 /lpf (0-2); Ketones,Urine Negative (Negative); Leukocyte Esterase,Urine Large (Negative); Mucus,Urine Rare /hpf; Nitrite,Urine Negative (Negative); PH, Urine 5.5 (5.0-8.0); Protein,Urine 1+ (Negative); RBC,Urine 19 /hpf (0-5); Specific Gravity,Urine 1.017 (1.001-1.035); Squamous Epithelial Cell,Urine <1 /hpf (0-4); Urobilinogen,Urine <2.0 mg/dL (<2.0); WBC,Urine 128 /hpf (0-5)
--- NOTE | 2021-01-23 01:25 | PN ---
PROGRESS NOTE DATE OF SERVICE: 01/22/2021 REASON FOR FOLLOWUP: ESBL E coli urinary tract infection. INTERVAL HISTORY: The patient is currently afebrile. The patient is breathing comfortably. Patient denies having any chest pain. No shortness of breath or cough. No abdominal pain or diarrhea. PHYSICAL EXAMINATION: Blood pressure 108/53 with a pulse of 105, temperature is 97.8. He is 97% on 4 L nasal cannula. General description is an elderly male lying in bed in no distress. Respiratory system: Unlabored breathing, clear to auscultation anteriorly. Heart S1, S2. Regular rate and rhythm. Abdomen soft. No tenderness. LAB: Repeat UA was done unfortunately cultures were not done. DIAGNOSTIC IMPRESSION AND PLAN: Patient with a positive urine culture with E coli ESBL Klebsiella. Repeat UA was positive. Unfortunately cultures were not done. Patient possible cystitis. He is not running a fever but did have elevated white count. We will continue the patient on Ertapenem. Repeat UA has been ordered. Continue supportive care. MMODL / IJN: [id number] /
[2021-01-23 07:15] LABS: Glucose,Whole Blood 106 mg/dL (75-99)
[2021-01-23] MEDS: INSULIN ASPART (NovoLOG) 100 UNIT/ML VIAL SQ SCH ×4 (08:43→20:45)
[2021-01-23] MEDS: FOLIC ACID 1 MG TAB PO SCH (08:44)
[2021-01-23] MEDS: ERTAPENEM 0.5 GM in SODIUM CHLORIDE 0.9% 50 ML IVPB SCH (08:44)
[2021-01-23] MEDS: ASPIRIN 81 MG PO SCH (08:44)
[2021-01-23] MEDS: APIXABAN 5 MG TAB PO SCH ×2 (08:44→20:45)
[2021-01-23] MEDS: FERROUS SULFATE 325 MG TAB PO SCH (08:45)
[2021-01-23] MEDS: SYMBICORT 80-4.5 MCG INHALER INHALATION SCH ×2 (08:50→20:29)
[2021-01-23] MEDS: PANTOPRAZOLE 40 MG TABLET PO SCH (09:00)
[2021-01-23] MEDS: METOPROLOL TARTRATE 50 MG TAB PO SCH ×3 (11:35→15:54)
[2021-01-23 11:56] LABS: African American GFR (CKD) 23.9 (60.0-200.0); Anion Gap 4.7 mmol/L (4.00-12.00); BUN/Creat Ratio 26.45 Ratio (12.00-20.00); Calcium 9.3 mg/dL (8.7-10.3); Carbon Dioxide 35.3 mmol/L (21.6-31.8); Non-African American GFR(CKD) 20.6 (60.0-200.0); Potassium 5.4 mmol/L (3.5-5.5)
[2021-01-23 12:03] LABS: Glucose,Whole Blood 103 mg/dL (75-99)
[2021-01-23 13:47] VITALS: BMI 52.2
[2021-01-23] MEDS: AMMONIUM LACTATE 12% LOTION 225 GM BTL TOPICAL SCH (15:56)
--- NOTE | 2021-01-23 17:26 | PN ---
PROGRESS NOTE Patient is seen for followup for chronic kidney disease. Serum creatinine is staying at about 3 mg/dL. Patient is being treated for urinary tract infection. He denies any significant complaints today. PHYSICAL EXAMINATION: Blood pressure is 103/58, heart rate of 104 per minute. Patient is afebrile. EXAMINATION OF THE HEART: S1 and S2. EXAMINATION OF LUNGS: Decreased breath sounds at bases. ABDOMEN: Soft, morbidly obese. Examination of lower extremities shows chronic edema, chronic skin changes. 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 LABS: Sodium 145, potassium 5.4, chloride 105, BUN 82, creatinine 3.1. ASSESSMENT: 1. Acute kidney injury. Renal function currently stable, creatinine staying close to 3 mg/dL. Patient is off of IV fluids. His creatinine was worse, mostly associated with hypotension and hypoperfusion. Patient was started on midodrine yesterday. 2. Anemia, status post packed RBCs transfusion, maintained on Aranesp and status post IV iron. 3. Chronic lower extremity edema. 4. Urinary tract infection with urine culture growing Klebsiella pneumoniae. 5. Hypotension, started on midodrine. Lopressor dose has been decreased. PLAN: Continue with the midodrine for now. Continue antibiotics. Follow up as outpatient in 1-2 weeks when patient is discharged. MMODL / IJN: [id number] /
[2021-01-23 17:45] LABS: Glucose,Whole Blood 105 mg/dL (75-99)
--- NOTE | 2021-01-23 19:04 | PN ---
PROGRESS NOTE DATE OF SERVICE: 01/23/2021 REASON FOR FOLLOWUP: Urinary tract infection. INTERVAL HISTORY: The patient is currently afebrile. The patient is breathing comfortably. The patient denies having any chest pain or shortness of breath or cough. No abdominal pain or diarrhea. PHYSICAL EXAMINATION: Blood pressure 113/62 with a pulse of 80, temperature 98.4. He is 95% on 4 L nasal cannula. General description is a middle-aged male lying in bed in no distress. RESPIRATORY SYSTEM: Unlabored breathing. Clear to auscultation anteriorly. HEART: S1, S2. Regular rate and rhythm. ABDOMEN: Soft. No distention. No guarding or rigidity. LABS: BUN of 82, creatinine 3.1. UA still positive. DIAGNOSTIC IMPRESSION AND PLAN: Patient with ESBL Klebsiella urinary tract infection, possibly catheter-associated. Mccloud has been changed. Repeat urine is still positive. Will wait for culture to finalize to determine discharge antibiotics. Continue with Invanz and monitor his clinical course closely. MMODL / IJN: [id number] /
[2021-01-23 20:27] LABS: Glucose,Whole Blood 147 mg/dL (75-99)
[2021-01-23] MEDS: ATORVASTATIN 40 MG TAB PO SCH (20:45)
[2021-01-23] MEDS: TAMSULOSIN 0.4 MG CAP.ER.24H PO SCH (20:45)
[2021-01-24] MEDS: METOPROLOL TARTRATE 50 MG TAB PO SCH ×3 (06:03→17:41)
[2021-01-24 07:11] LABS: Glucose,Whole Blood 117 mg/dL (75-99)
[2021-01-24] MEDS: INSULIN ASPART (NovoLOG) 100 UNIT/ML VIAL SQ SCH ×3 (08:04→17:42)
[2021-01-24] MEDS: APIXABAN 5 MG TAB PO SCH (08:14)
[2021-01-24] MEDS: PANTOPRAZOLE 40 MG TABLET PO SCH (08:14)
[2021-01-24] MEDS: FERROUS SULFATE 325 MG TAB PO SCH (08:15)
[2021-01-24] MEDS: SYMBICORT 80-4.5 MCG INHALER INHALATION SCH (08:15)
[2021-01-24] MEDS: ASPIRIN 81 MG PO SCH (08:15)
[2021-01-24] MEDS: FOLIC ACID 1 MG TAB PO SCH (08:15)
[2021-01-24] MEDS: ERTAPENEM 0.5 GM in SODIUM CHLORIDE 0.9% 50 ML IVPB SCH (09:22)
[2021-01-24] MEDS: AMMONIUM LACTATE 12% LOTION 225 GM BTL TOPICAL SCH (09:22)
[2021-01-24 09:24] LABS: Basophils # (A) 0.04 X 10*3/uL (0.00-0.10); Basophils % (A) 0.8 %; Eosinophils # (A) 0.32 X 10*3/uL (0.04-0.35); Eosinophils % (A) 6.2 %; HCT 32.1 % (39.6-50.0); HGB 8.4 g/dL (13.0-17.0); Lymphocytes # (A) 0.63 X 10*3/uL (0.90-5.00); Lymphocytes % (A) 12.2 %; MCH 26.9 pg (27.0-32.0); MCHC 26.2 g/dL (32.0-37.0); MCV 102.9 fL (80.0-97.0); Mean Platelet Volume 10.5 fL (9.5-12.2); Monocytes # (A) 0.55 X 10*3/uL (0.20-1.00); Monocytes % (A) 10.7 %; Neutrophils # (A) 3.58 X 10*3/uL (1.80-7.70); Neutrophils % (A) 69.5 %; Platelet Count 204 X 10*3/uL (140-440); RBC 3.12 X 10*6/uL (4.40-5.60); RDW 19.3 % (11.5-14.5); WBC 5.15 X 10*3/uL (4.50-10.00)
[2021-01-24 09:30] LABS: African American GFR (CKD) 24.8 (60.0-200.0); Anion Gap 5.5 mmol/L (4.00-12.00); BUN/Creat Ratio 26.67 Ratio (12.00-20.00); Calcium 9.3 mg/dL (8.7-10.3); Carbon Dioxide 34.5 mmol/L (21.6-31.8); Non-African American GFR(CKD) 21.4 (60.0-200.0); Potassium 5.7 mmol/L (3.5-5.5)
[2021-01-24] MEDS ORDERED: SODIUM POLYSTYRENE SULFONATE 15 GM/60 ML BOTTLE PO STA (10:15)
[2021-01-24 12:02] LABS: Glucose,Whole Blood 109 mg/dL (75-99)
[2021-01-24 12:21] VITALS: BP 146/71; PULSE 105; RESP 17; TEMP 98.1
--- NOTE | 2021-01-24 14:41 | P.PN ---
Subjective Progress Note Date: 01/23/21 Principal diagnosis: Acute renal failure UTI-ESBL Klebsiella 60-year-old male who resides in a [facility]. Patient states he went to rehab after he had surgery year ago and was never able to walk again. Patient was sent in per EMS because staff stated he might have urinary tract infection and they believe he has renal failure. Patient himself has no complaints and doesn't know why he was sent in and states she was unaware that there were going to send him. At this point time EMS that there was no further history and we did not get a call from the [facility] prior to the patient's arrival. Workup in ED including an EKG shows atrial fibrillation at 93 BPM; UA is positive; labs reviewed the CBC with white blood count of 6.3, hemoglobin 8.6, hematocrit 30.1 and platelet count of 295, sodium 138, potassium 5.1, BUN 91 with creatinine of 3.6 01/19/2021 Patient is seen and evaluated sitting comfortably in bed; denies any specific complaints; nursing staff concerned about superficial abdominal wall wound; wound care is consulted Vital signs remained stable; labs are reviewed revealing slight improvement in creatinine from 3.6 yesterday down to 3.20 Nephrology on board and recommending to continue with slow IV fluid hydration; avoid hypotension; continue to hold Lasix Urine culture remains pending; continue with current IV antibiotics Hemoglobin remained stable; iron studies are ordered and pending; nephrology added Aranesp 01/20/2021 Patient is currently lying in the bed comfortably. Awake alert and oriented x3. Patient is morbidly obese and bedridden. Currently being continued on IV hydration and renal function is improving slowly. Nephrology is on board. Blood sugar is better controlled. Hemoglobin is 8.6, MCV 98.4 and platelets 222.. RDW 19.5. Patient is iron deficient and is getting IV iron supplementation. Urine culture showed ESBL Klebsiella and IV antibiotics changed to ertapenem. ID was consulted. Monitor CBC and BMP tomorrow. 01/21/2021 Patient is currently resting in the bed comfortably. Denied any complaints of chest pain or shortness of breath. No nausea vomiting. Blood pressures 121/62 and is requiring 4 L oxygen via nasal cannula. Blood sugars better controlled. Laboratory data showed BUN 77 and creatinine 2.8, WBC 5.2, hemoglobin 8.4 and platelets 243 Patient is being continued on ertapenem for ESBL Klebsiella and nephrology is on board. 01/22/2021 Patient is currently awake alert oriented x3. No complaints of chest pain or shortness breath. However his blood pressure is low today and creatinine level increased to 3.1 compared to yesterday. No fever no chills. No nausea vomiting or abdominal pain. No diarrhea. will reduce dose of blood pressure medications and monitor renal function. Nephrology managing on board. Continued on antibiotics for home creatinine. 01/23/2021 Patient is currently lying in the bed comfortably. No complaints of chest pain or shortness of breath. Blood pressure is improved now and is being continued on metoprolol 25 mg 3 times a day. Patient was also started on midodrine as per nephrology. Heart rate is fairly controlled. Patient's creatinine level is at baseline around 3. Otherwise blood sugar is controlled as well. Follow-up renal function tomorrow. Continue with IV antibiotics the form of ertapenem for ESBL Klebsiella UTI. Discussed with nephrology and ID. Patient is afebrile. No nausea vomiting or abdominal pain or diarrhea. Tolerating oral diet. Current medications reviewed. Objective - Vital Signs Vital signs: Vital Signs Temp 98.5 F 01/23/21 20:30 Pulse 95 01/23/21 20:30 Resp 20 01/23/21 20:30 BP 111/64 01/23/21 20:30 Pulse Ox 97 01/23/21 20:30 Intake & Output 01/23/21 01/23/21 01/24/21 06:59 18:59 06:59 Intake Total 100 200 Output Total 400 800 Balance -300 -800 200 Weight 179.532 kg 179.532 kg Intake: Oral 100 200 Output: Urine 400 800 Other: Voiding Method Indwelling Catheter Indwelling Catheter Indwelling Catheter - Exam PHYSICAL EXAMINATION: Patient is lying in the bed comfortably, no acute distress, awake alert and oriented..Morbidly obese. HEENT: Normocephalic. Neck is supple. Pupils reactive. Nostrils clear. Oral cavity is moist. Ears reveal no drainage. Neck reveals no JVD, carotid bruits, or thyromegaly. CHEST EXAMINATION: Trachea is central. Symmetrical expansion. Bibasilar diminish ed air entry.Lung jeffrey clear to auscultation and percussion. CARDIAC: Normal S1, S2 with no gallops. No murmurs ABDOMEN: Soft. Bowel sounds normal. No organomegaly. No abdominal bruits. Extremities: Bilateral lower extremity venous stasis and swelling with skin discoloration. Neurologically awake, alert, oriented x3 with well-coordinated movements. No focal deficits noted Skin: No rash or skin lesions. Psychiatric: Coperative. Nonsuicidal Musculoskeletal: No joint swelling or deformity. - Labs CBC & Chem 7: 01/24/21 06:45 01/24/21 06:45 Labs: Abnormal Lab Results - Last 24 Hours (Table) 01/23/21 01/23/21 01/23/21 Range/Units 00:25 06:27 07:14 Carbon Dioxide 35.3 H (21.6-31.8) mmol/L BUN 82.0 H (9.0-27.0) mg/dL Creatinine 3.1 H (0.6-1.5) mg/dL Est GFR (CKD-EPI)AfAm 23.9 L (60.0-200.0) Est GFR (CKD-EPI)NonAf 20.6 L (60.0-200.0) BUN/Creatinine Ratio 26.45 H (12.00-20.00) Ratio POC Glucose (mg/dL) 106 H (75-99) mg/dL Urine Protein 1+ H (Negative) Urine Blood Moderate H (Negative) Ur Leukocyte Esterase Large H (Negative) Urine RBC 19 H (0-5) /hpf Urine WBC 128 H (0-5) /hpf Urine WBC Clumps Few H (None) /hpf Amorphous Sediment Few H (None) /hpf Hyaline Casts 15 H (0-2) /lpf Urine Mucus Rare H (None) /hpf 01/23/21 01/23/21 01/23/21 Range/Units 12:02 17:44 20:26 Carbon Dioxide (21.6-31.8) mmol/L BUN (9.0-27.0) mg/dL Creatinine (0.6-1.5) mg/dL Est GFR (CKD-EPI)AfAm (60.0-200.0) Est GFR (CKD-EPI)NonAf (60.0-200.0) BUN/Creatinine Ratio (12.00-20.00) Ratio POC Glucose (mg/dL) 103 H 105 H 147 H (75-99) mg/dL Urine Protein (Negative) Urine Blood (Negative) Ur Leukocyte Esterase (Negative) Urine RBC (0-5) /hpf Urine WBC (0-5) /hpf Urine WBC Clumps (None) /hpf Amorphous Sediment (None) /hpf Hyaline Casts (0-2) /lpf Urine Mucus (None) /hpf Microbiology - Last 24 Hours (Table) 01/17/21 11:55 Blood Culture - Final Blood No Growth after 144 hours 01/17/21 11:58 Blood Culture - Final Blood No Growth after 144 hours 01/23/21 00:25 Urine Culture - Preliminary Urine,Clean Catch Assessment and Plan Assessment: 1. Acute on CKD-4. likley prerenal ; IV fluids on hold. Encourage oral intake. we will monitor strict AYDE's, daily weights, renal function and electrolytes; avoid nephrotoxic agents; nephrology has seen the patient. Started on Midodrin due to hypotension and beta shell dose decreased. 2. ESBL UTI; complicated. patient started on Rocephin 1 g IV daily-->Ertapenam; 3. Anemia; possibly secondary to chronic kidney disease; continue with Protonix 40 mg daily; monitor H&H closely along with stool occult blood; hemoglobin is fairly stable. 4. Uncontrolled hypertension on admission; resume metoprolol 50 mg by mouth every 8 hours; hold off on Lasix daily renal function improves; Currently patient is hypotensive. we will monitor blood pressure closely and make adjustments to medications if blood pressure remains uncontrolled 5. Diabetes mellitus2; not on any oral hypoglycemic agents; we will monitor Accu-Cheks every before meals and at bedtime with insulin sliding scale; consistent carbohydrate diet 6. Hyperlipidemia; Lipitor 40 mg by mouth daily at bedtime 7. COPD; not in exacerbation; continue with home inhaler therapy in form of Advair, DuoNeb nebulizer treatments 8. Chronic Atrial fibrillation; remains rate controlled with metoprolol 50 mg by mouth every 8 hours; remains anticoagulated with Eliquis 9. CAD/chronic diastolic CHF; stable on aspirin, beta blockers, statins; patient takes Lasix 20 mg twice a day; we will hold off till renal function improves; we will continue with salt and fluid restricted diet; monitor strict AYDE's and daily weights DVT prophylaxis; SCDs/systemic anticoagulation CODE STATUS; full code Time with Patient: Greater than 30
--- NOTE | 2021-01-24 14:46 | P.DS ---
Providers Date of admission: 01/17/21 13:25 Expected date of discharge: 01/24/21 Attending physician: Laly Clark MD Consults: 01/17/21 13:25 Consult Physician Urgent Consulting Provider: Gabriela Gusman Consult Reason/Comments: Acute renal failure Do you want consulting provider notified?: Yes 01/20/21 10:18 Consult Physician Routine Consulting Provider: Elgin Priest Consult Reason/Comments: ESBL UTI Do you want consulting provider notified?: Yes Primary care physician: [facility] Course: Discharge diagnosis 1. Acute on CKD-4. likley prerenal ; IV fluids on hold. Encourage oral intake. we will monitor strict AYDE's, daily weights, renal function and electrolytes; avoid nephrotoxic agents; nephrology has seen the patient. Was given Midodrin due to hypotension and beta shell dose decreased. Blood pressure is stable. Midodrin has been discontinued. 2. ESBL UTI; complicated. patient started on Rocephin 1 g IV daily-->Ertapenam; no further antibiotic course as per ID. 3. Anemia of chronic disease. secondary to chronic kidney disease; continue with Protonix 40 mg daily; monitor H&H closely along with stool occult blood; hemoglobin is fairly stable. 4. Uncontrolled hypertension on admission; resume metoprolol 50 mg by mouth every 8 hours; hold off on Lasix daily renal function improves; Currently patient is hypotensive. Metoprolol dose decreased to 25 mg every 8 hours. 5. Diabetes mellitus2; not on any oral hypoglycemic agents; we will monitor Accu-Cheks every before meals and at bedtime with insulin sliding scale; consis tent carbohydrate diet 6. Hyperlipidemia; Lipitor 40 mg by mouth daily at bedtime 7. COPD; not in exacerbation; continue with home inhaler therapy in form of Advair, DuoNeb nebulizer treatments 8. Chronic Atrial fibrillation; remains rate controlled with metoprolol 25 mg by mouth every 8 hours; remains anticoagulated with Eliquis 9. CAD/chronic diastolic CHF; stable on aspirin, beta blockers, statins; patient takes Lasix 20 mg twice a day; we will hold off till renal function improves; we will continue with salt and fluid restricted diet; monitor strict AYDE's and daily weights #10 chronic medical debility patient is bedridden. Chronic venous stasis and lower extremity edema with skin changes including discoloration. DVT prophylaxis; SCDs/systemic anticoagulation CODE STATUS; full code Hospital course 60-year-old male [facility]. Patient states he went to rehab after he had surgery year ago and was never able to walk again. Patient was sent in per EMS because staff stated he might have urinary tract infection and they believe he has renal failure. Patient himself has no complaints and doesn't know why he was sent in and states she was unaware that there were going to send him. At this point time EMS that there was no further history and we did not get a call from the jail prior to the patient's arrival. Workup in ED including an EKG shows atrial fibrillation at 93 BPM; UA is positive; labs reviewed the CBC with white blood count of 6.3, hemoglobin 8.6, hematocrit 30.1 and platelet count of 295, sodium 138, potassium 5.1, BUN 91 with creatinine of 3.6 01/19/2021 Patient is seen and evaluated sitting comfortably in bed; denies any specific complaints; nursing staff concerned about superficial abdominal wall wound; wound care is consulted Vital signs remained stable; labs are reviewed revealing slight improvement in creatinine from 3.6 yesterday down to 3.20 Nephrology on board and recommending to continue with slow IV fluid hydration; avoid hypotension; continue to hold Lasix Urine culture remains pending; continue with current IV antibiotics Hemoglobin remained stable; iron studies are ordered and pending; nephrology add ed Aranesp 01/20/2021 Patient is currently lying in the bed comfortably. Awake alert and oriented x3. Patient is morbidly obese and bedridden. Currently being continued on IV hydration and renal function is improving slowly. Nephrology is on board. Blood sugar is better controlled. Hemoglobin is 8.6, MCV 98.4 and platelets 222.. RDW 19.5. Patient is iron deficient and is getting IV iron supp lementation. Urine culture showed ESBL Klebsiella and IV antibiotics changed to ertapenem. ID was consulted. Monitor CBC and BMP tomorrow. 01/21/2021 Patient is currently resting in the bed comfortably. Denied any complaints of chest pain or shortness of breath. No nausea vomiting. Blood pressures 121/62 and is requiring 4 L oxygen via nasal cannula. Blood sugars better controlled. Laboratory data showed BUN 77 and creatinine 2.8, WBC 5.2, hemoglobin 8.4 and platelets 243 Patient is being continued on ertapenem for ESBL Klebsiella and nephrology is on board. 01/22/2021 Patient is currently awake alert oriented x3. No complaints of chest pain or shortness breath. However his blood pressure is low today and creatinine level increased to 3.1 compared to yesterday. No fever no chills. No nausea vomiting or abdominal pain. No diarrhea. will reduce dose of blood pressure medications and monitor renal function. Nephrology managing on board. Continued on antibiotics for home creatinine. 01/23/2021 Patient is currently lying in the bed comfortably. No complaints of chest pain or shortness of breath. Blood pressure is improved now and is being continued on metoprolol 25 mg 3 times a day. Patient was also started on midodrine as per nephrology. Heart rate is fairly controlled. Patient's creatinine level is at baseline around 3. Otherwise blood sugar is controlled as well. Follow-up renal function tomorrow. Continue with IV antibiotics the form of ertapenem for ESBL Klebsiella UTI. Discussed with nephrology and ID. Patient is afebrile. No nausea vomiting or abdominal pain or diarrhea. Tolerating oral diet. 01/24/2021 Patient is awake alert and oriented 3. Lying in the bed comfortable. Blood pressure is stable. Midodrin was discontinued. Patient will be continued on metoprolol 25 mg every 8 hourly and we'll also start back on Lasix upon discharge. Patient will need follow with nephrology as an outpatient due to his chronic kidney disease stage IV. Potassium level is 5.7 today. Patient was given a dose of Kayexalate 30 mg. Follow-up repeat potassium level Renal function is stable with creatinine level III.0. Blood sugar is controlled. Patient is being continued on ertapenem for ESBL Klebsiella. ID recommends no further antibiotic course as an outpatient. Patient is being discharged to [facility]. Recommends repeat CBC and BMP in the next 24 hours. PHYSICAL EXAMINATION: Patient is lying in the bed comfortably, no acute distress, awake alert and oriented..Morbidly obese. HEENT: Normocephalic. Neck is supple. Pupils reactive. Nostrils clear. Oral cavity is moist. Ears reveal no drainage. Neck reveals no JVD, carotid bruits, or thyromegaly. CHEST EXAMINATION: Trachea is central. Symmetrical expansion. Bibasilar diminished air entry.Lung jeffrey clear to auscultation and percussion. CARDIAC: Normal S1, S2 with no gallops. No murmurs ABDOMEN: Soft. Bowel sounds normal. No organomegaly. No abdominal bruits. Extremities: Bilateral lower extremity venous stasis and swelling with skin discoloration. Neurologically awake, alert, oriented x3 with well-coordinated movements. No focal deficits noted Skin: No rash or skin lesions. Psychiatric: Coperative. Nonsuicidal Musculoskeletal: No joint swelling or deformity. Vital Signs 01/24/21 01/24/21 08:00 12:20 Temperature 98.1 F Pulse Rate [ 107 H 105 H Pulse Oximetery ] Respiratory 20 17 Rate Blood Pressure 146/71 [Left Arm] O2 Sat by Pulse 97 Oximetry Total time taken greater than 35 minutes including 18 minutes for counseling and coordination of care. Patient Condition at Discharge: Fair Plan - Discharge Summary Discharge Rx Participant: No New Discharge Prescriptions: New Metoprolol Tartrate [Lopressor] 25 mg PO Q8HR #90 tab Darbepoetin Grant [Aranesp] 60 mcg SQ Q7D #4 syringe Continue Fluticasone/Salmeterol [Advair 250-50 Diskus] 1 puff INHALATION RT-BID Aspirin [Adult Low Dose Aspirin EC] 81 mg PO DAILY Allopurinol [Zyloprim] 300 mg PO DAILY Ferrous Sulfate [Iron (65 MG Elemental)] 325 mg PO DAILY Folic Acid 0.4 mg PO DAILY Ipratropium-Albuterol Nebulize [Duoneb 0.5 mg-3 mg/3 ml Soln] 3 ml INHALATION RT-Q8H PRN PRN Reason: Shortness Of Breath Cyanocobalamin [Vitamin B-12] 500 mcg PO DAILY Acetaminophen Tab [Tylenol] 650 mg PO Q8H PRN #0 PRN Reason: Pain Lidocaine 2% Gel [Xylocaine Jelly 2%] 1 applic URETHRAL BID Furosemide [Lasix] 20 mg PO BID@0900,1700 Artificial Tears-Hypromellose [Artificial Tear Drops] 2 drops BOTH EYES BID Apixaban [Eliquis] 5 mg PO BID Tamsulosin HCl [Flomax] 0.4 mg PO HS Zolpidem [Ambien] 2.5 mg PO HS PRN PRN Reason: Insomnia Pantoprazole Sodium [Protonix] 40 mg PO DAILY Atorvastatin [Lipitor] 40 mg PO HS Ammonium Lactate Lotion [Lac-Hydrin 12% Lotion] 1 applic TOPICAL DAILY Discontinued Metoprolol Tartrate [Lopressor] 50 mg PO Q8H Discharge Medication List Fluticasone/Salmeterol [Advair 250-50 Diskus] 1 puff INHALATION RT-BID 02/10/16 [History] Aspirin [Adult Low Dose Aspirin EC] 81 mg PO DAILY 02/03/19 [History] Allopurinol [Zyloprim] 300 mg PO DAILY 06/26/20 [History] Cyanocobalamin [Vitamin B-12] 500 mcg PO DAILY 06/26/20 [History] Ferrous Sulfate [Iron (65 MG Elemental)] 325 mg PO DAILY 06/26/20 [History] Folic Acid 0.4 mg PO DAILY 06/26/20 [History] Ipratropium-Albuterol Nebulize [Duoneb 0.5 mg-3 mg/3 ml Soln] 3 ml INHALATION RT-Q8H PRN 06/26/20 [History] Acetaminophen Tab [Tylenol] 650 mg PO Q8H PRN #0 07/05/20 [Rx] Ammonium Lactate Lotion [Lac-Hydrin 12% Lotion] 1 applic TOPICAL DAILY 01/17/21 [History] Apixaban [Eliquis] 5 mg PO BID 01/17/21 [History] Artificial Tears-Hypromellose [Artificial Tear Drops] 2 drops BOTH EYES BID 01/17/21 [History] Atorvastatin [Lipitor] 40 mg PO HS 01/17/21 [History] Furosemide [Lasix] 20 mg PO BID@0900,1700 01/17/21 [History] Lidocaine 2% Gel [Xylocaine Jelly 2%] 1 applic URETHRAL BID 01/17/21 [History] Pantoprazole Sodium [Protonix] 40 mg PO DAILY 01/17/21 [History] Tamsulosin HCl [Flomax] 0.4 mg PO HS 01/17/21 [History] Zolpidem [Ambien] 2.5 mg PO HS PRN 01/17/21 [History] Darbepoetin Grant [Aranesp] 60 mcg SQ Q7D #4 syringe 01/24/21 [Rx] Metoprolol Tartrate [Lopressor] 25 mg PO Q8HR #90 tab 03/26/21 [Rx] Follow up Appointment(s)/Referral(s): Dejon Watson MD [Primary Care Provider] - 1-2 days Discharge Disposition: TRANSFER TO SNF/ECF
--- NOTE | 2021-01-24 15:51 | PN ---
PROGRESS NOTE DATE OF SERVICE: 01/24/2021 REASON FOR FOLLOWUP: ESBL Klebsiella urinary tract infection, catheter-associated. INTERVAL HISTORY: The patient is currently afebrile. The patient is breathing comfortably. The patient denies having any chest pain, shortness of breath or cough. No nausea, no vomiting, no abdominal pain or diarrhea. PHYSICAL EXAMINATION: Blood pressure 146/71 with a pulse of 105, temperature 98.1. He is 97% on 4 L nasal cannula. General description is a middle-aged male lying in bed in no distress. RESPIRATORY SYSTEM: Unlabored breathing. Clear to auscultation anteriorly. HEART: S1, S2. Regular rate and rhythm. ABDOMEN: Soft. No tenderness. LABS: Creatinine 8.4, white count 5.15, creatinine 3.0. Repeat urine is negative. DIAGNOSTIC IMPRESSION AND PLAN: Patient with extended-spectrum beta-lactamase Klebsiella urinary tract infection, possible cystitis related to his catheter, which has already been changed. Repeat urine is negative. He has received about a week of antibiotics, which should be more than enough. No need for antibiotic on discharge. MMODL / IJN: [id number] /
--- NOTE | 2021-01-24 17:17 | PN ---
PROGRESS NOTE Patient is seen for followup for chronic kidney disease. He did have mild acute kidney injury on initial admission, which has improved, serum creatinine staying at about 3, which is still higher than his baseline of about 1.7 to 1.6 in July of 2020. Patient has underlying urinary tract infection. He has generalized debility, chronic lower extremity edema. He had been hypotensive. Blood pressure is currently improved, about 111 mmHg systolic. Lopressor dose was decreased. PHYSICAL EXAMINATION: On examination today patient is comfortable. Blood pressure 102/70, heart rate 107 per minute. He is afebrile. EXAMINATION OF THE HEART: S1 and S2. EXAMINATION OF LUNGS: Decreased breath sounds at bases. ABDOMEN: Morbidly obese. Examination of lower extremities shows chronic skin changes, chronic edema bilaterally, unchanged. HONE[employer] LIQUEFIER exam is grossly intact. Patient does not move his lower extremities much. LABS: Sodium 145, potassium 5.7, chloride 105, BUN 80, creatinine 3.0, hemoglobin 8.4 g/dL. ASSESSMENT: 1. Chronic kidney disease, NKF stage 3B to 4, with baseline creatinine about 1.7 to 1.6 secondary to nephrosclerosis and diabetic kidney disease. 2. Acute kidney injury, acute tubular necrosis, initially prerenal as well, status post IV fluids. Patient's blood pressure has been on the lower side. Lopressor was adjusted. Urine output seems to have improved, creatinine staying at about 3.0. No nephrotoxic agents on board. Patient has an indwelling Mccloud catheter and 24- hour urine output documented at 1600 mL. Continue off of diuretics for now. 3. Urinary tract infection; urine culture growing Klebsiella pneumoniae. Maintained on antibiotics. 4. Anemia with no active bleeding noted, status post IV iron, maintained on Aranesp. 5. Hyperkalemia, status post Kayexalate today. Will add low-dose loop diuretics, which will help with the hyperkalemia, and maintain patient on low-potassium diet. 6. Chronic atrial fibrillation, maintained on Eliquis. PLAN: Continue to hold diuretics for now. May add low-dose loop diuretics if patient remains hyperkalemic as outpatient. Continue with Mccloud catheter. Antibiotics as per ID. Patient will need to continue with Aranesp/Epogen post discharge. MMODL / IJN: [id number] /
== END 2021-01-24 19:30 | DRG 698 ==
LOC: EC 11:09 → 5NMEDONC 13:25
PROVIDERS: ADMIT Internal Medicine; ATTEND Internal Medicine
DX: T83.511A Infection and inflammatory reaction due to indwelling urethral catheter, initial encounter (principal); N17.0 Acute kidney failure with tubular necrosis; I13.0 Hypertensive heart and chronic kidney disease with heart failure and stage 1 through stage 4 chronic kidney disease, or unspecified chronic kidney disease; Z68.43 Body mass index [BMI] 50.0-59.9, adult; L03.116 Cellulitis of left lower limb; L03.115 Cellulitis of right lower limb; I48.20 Chronic atrial fibrillation, unspecified; I50.32 Chronic diastolic (congestive) heart failure; Z16.12 Extended spectrum beta lactamase (ESBL) resistance; N18.4 Chronic kidney disease, stage 4 (severe); E11.41 Type 2 diabetes mellitus with diabetic mononeuropathy; D63.1 Anemia in chronic kidney disease; E11.22 Type 2 diabetes mellitus with diabetic chronic kidney disease; I95.9 Hypotension, unspecified; J44.9 Chronic obstructive pulmonary disease, unspecified; E66.01 Morbid (severe) obesity due to excess calories; Z20.822 Contact with and (suspected) exposure to COVID-19; N39.0 Urinary tract infection, site not specified; E78.5 Hyperlipidemia, unspecified; M19.90 Unspecified osteoarthritis, unspecified site; K21.9 Gastro-esophageal reflux disease without esophagitis; F41.9 Anxiety disorder, unspecified; M10.9 Gout, unspecified; I25.10 Atherosclerotic heart disease of native coronary artery without angina pectoris; B96.1 Klebsiella pneumoniae [K. pneumoniae] as the cause of diseases classified elsewhere; R33.9 Retention of urine, unspecified; E87.5 Hyperkalemia; I87.8 Other specified disorders of veins; G47.33 Obstructive sleep apnea (adult) (pediatric); S30.92XA Unspecified superficial injury of abdominal wall, initial encounter; X58.XXXA Exposure to other specified factors, initial encounter; B96.20 Unspecified Escherichia coli [E. coli] as the cause of diseases classified elsewhere; Y84.6 Urinary catheterization as the cause of abnormal reaction of the patient, or of later complication, without mention of misadventure at the time of the procedure; Z71.3 Dietary counseling and surveillance; Z79.82 Long term (current) use of aspirin; Z79.899 Other long term (current) drug therapy; Z79.01 Long term (current) use of anticoagulants; Z86.14 Personal history of Methicillin resistant Staphylococcus aureus infection; Z90.49 Acquired absence of other specified parts of digestive tract; Z98.890 Other specified postprocedural states; Z74.01 Bed confinement status; Z87.891 Personal history of nicotine dependence; Z88.8 Allergy status to other drugs, medicaments and biological substances; Z82.49 Family history of ischemic heart disease and other diseases of the circulatory system; Z83.3 Family history of diabetes mellitus; Z82.62 Family history of osteoporosis; Z82.5 Family history of asthma and other chronic lower respiratory diseases
CPT/HCPCS: 36415; 80048; 80053; 81001; 83036; 83540; 83550; 85025; 85027; 87040; 87077; 87086; 87186; 87635; 93005; 94640; 94760; 99285

== ENCOUNTER 2021-01-30 11:20 | Inpatient (IN) | payer MEDICARE ==
--- NOTE | 2021-01-30 11:53 | ED ---
General Adult HPI - General Chief complaint: Shortness of Breath Stated complaint: PURNIMA Time Seen by Provider: 01/30/21 11:20 Source: patient, EMS, RN notes reviewed, old records reviewed Mode of arrival: EMS Limitations: no limitations - History of Present Illness Initial comments: This is a 60-year-old male who presents to the emergency department from a long term. Patient's complaint at the long term from the staff was that he was hypoxic and altered. Patient will not keep on his oxygen and will not keep on his right BiPAP At the long term so he becomes hypoxic and then becomes altered. There's been no report of any fever patient himself states he's lower short of breath brother neck there is no new complaints. Patient denies any chest pain or belly pain. Patient denies any vomiting or diarrhea. Patient denies any fever. Yadira ent denies any trauma. - Related Data Home Medications Medication Instructions Recorded Confirmed Fluticasone/Salmeterol [Advair 1 puff INHALATION RT-BID 02/10/16 01/30/21 250-50 Diskus] Aspirin [Adult Low Dose Aspirin EC] 81 mg PO DAILY 02/03/19 01/30/21 Allopurinol [Zyloprim] 300 mg PO DAILY 06/26/20 01/30/21 Cyanocobalamin [Vitamin B-12] 500 mcg PO DAILY 06/26/20 01/30/21 Ferrous Sulfate [Iron (65 MG 325 mg PO DAILY 06/26/20 01/30/21 Elemental)] Folic Acid 0.4 mg PO DAILY 06/26/20 01/30/21 Ipratropium-Albuterol Nebulize 3 ml INHALATION RT-Q8H PRN 06/26/20 01/30/21 [Duoneb 0.5 mg-3 mg/3 ml Soln] Ammonium Lactate Lotion 1 applic TOPICAL DAILY 01/17/21 01/30/21 [Lac-Hydrin 12% Lotion] Apixaban [Eliquis] 5 mg PO BID 01/17/21 01/30/21 Artificial Tears-Hypromellose 2 drops BOTH EYES BID 01/17/21 01/30/21 [Artificial Tear Drops] Atorvastatin [Lipitor] 40 mg PO HS 01/17/21 01/30/21 Furosemide [Lasix] 20 mg PO BID@0900,1700 01/17/21 01/30/21 Lidocaine 2% Gel [Xylocaine Jelly 1 applic URETHRAL BID 01/17/21 01/30/21 2%] Tamsulosin HCl [Flomax] 0.4 mg PO HS 01/17/21 01/30/21 Darbepoetin Grant [Aranesp] 60 mcg SQ WOOD@0900 01/30/21 01/30/21 Omeprazole 20 mg PO DAILY 01/30/21 01/30/21 Previous Rx's Medication Instructions Recorded Acetaminophen Tab [Tylenol] 650 mg PO Q8H PRN #0 07/05/20 Metoprolol Tartrate [Lopressor] 25 mg PO Q8HR #90 tab 01/24/21 Zolpidem [Ambien] 2.5 mg PO HS PRN #4 tab 01/24/21 Allergies Allergy/AdvReac Type Severity Reaction Status Date / Time bisacodyl Allergy Unknown Verified 01/30/21 12:39 Review of Systems ROS Statement: Those systems with pertinent positive or pertinent negative responses have been documented in the HPI. ROS Other: All systems not noted in ROS Statement are negative. 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 Past Anesthesia/Blood Transfusion Reactions: No Reported Reaction Past Psychological History: Anxiety Smoking Status: Former smoker Past Alcohol Use History: None Reported, Rare Past Drug Use History: None Reported, Marijuana - Past Family History Father Family Medical History: Coronary Artery Disease (CAD), Diabetes Mellitus Additional Family Medical History / Comment(s): Father had heart disease. He at age 74 of possible a [place]-pt not sure. Mother Family Medical History: Congestive Heart Failure (CHF), COPD, Coronary Artery Disease (CAD) Additional Family Medical History / Comment(s): Mother had heart problems. She at age 72 yrs. She had osteoporosis. Brother(s) Family Medical History: No Reported History Sister(s) Family Medical History: Diabetes Mellitus Daughter(s) Family Medical History: No Reported History Son(s) Family Medical History: No Reported History General Exam - General Exam Comments Initial Comments: GENERAL: Patient is well-developed and well-nourished. Patient is nontoxic and well- hydrated and is in mild distress. Patient was oxygenating 90% when I was in the room on 4 L ENT: Neck is soft and supple. No significant lymphadenopathy is noted. Oropharynx is clear. Moist mucous membranes. Neck has full range of motion without eliciting any pain. EYES: The sclera were anicteric and conjunctiva were pink and moist. Extraocular movements were intact and pupils were equal round and reactive to light. Eye lids were unremarkable. PULMONARY: Patient is very diminished breath sounds difficult to ascertain whether its lack of effort. CARDIOVASCULAR: There is a regular rate and rhythm without any murmurs gallops or rubs. ABDOMEN: Soft and nontender with normal bowel sounds. Patient is morbidly obese SKIN: Skin is clear with no lesions or rashes and otherwise unremarkable. NEUROLOGIC: Patient is alert and oriented x3. Cranial nerves II through XII are grossly intact. Motor and sensory are also intact. Normal speech, volume and content. Symmetrical smile. MUSCULOSKELETAL: Normal extremities with adequate strength and full range of motion. She has chronic bilateral cellulitis and edema LYMPHATICS: No significant lymphadenopathy is noted PSYCHIATRIC: Normal psychiatric evaluation. Limitations: no limitations Course Vital Signs 01/30/21 01/30/21 01/30/21 11:30 11:32 11:45 Temperature 97.9 F Pulse Rate 89 87 90 Respiratory 17 18 16 Rate Blood Pressure 100/86 100/86 85/64 O2 Sat by Pulse 98 97 95 Oximetry 01/30/21 01/30/21 01/30/21 11:56 12:00 12:30 Temperature Pulse Rate 89 80 Respiratory 22 16 18 Rate Blood Pressure 85/64 85/47 O2 Sat by Pulse 98 Oximetry 01/30/21 01/30/21 01/30/21 13:00 13:15 13:45 Temperature Pulse Rate 73 80 77 Respiratory 16 16 16 Rate Blood Pressure 98/56 81/48 86/52 O2 Sat by Pulse Oximetry 01/30/21 01/30/21 01/30/21 14:00 14:15 14:30 Temperature Pulse Rate 80 85 92 Respiratory 16 14 13 Rate Blood Pressure 91/58 93/72 94/74 O2 Sat by Pulse 98 98 96 Oximetry Medical Decision Making - Medical Decision Making EKG shows atrial flutter at 83 bpm QRS is 116 QT interval 410 QTC is 481. EKG shows no ST segment elevation or depression X-ray shows no acute abnormality. I spoke with Dr. Greenwood he agreed to admit the patient admitted the patient I wrote admitting orders. - Lab Data Result diagrams: 01/30/21 11:47 01/30/21 11:47 Lab Results 01/30/21 01/30/21 01/30/21 Range/Units 11:47 11:47 11:47 WBC 4.8 (3.8-10.6) k/uL RBC 3.28 L (4.30-5.90) m/uL Hgb 8.9 L (13.0-17.5) gm/dL Hct 31.4 L (39.0-53.0) % MCV 95.8 (80.0-100.0) fL MCH 27.1 (25.0-35.0) pg MCHC 28.3 L (31.0-37.0) g/dL RDW 18.7 H (11.5-15.5) % Plt Count 224 (150-450) k/uL MPV 7.6 Neutrophils % Not Reportable Neutrophils % (Manual) 64 % Lymphocytes % Not Reportable Lymphocytes % (Manual) 17 % Monocytes % Not Reportable Monocytes % (Manual) 7 % Eosinophils % Not Reportable Eosinophils % (Manual) 10 % Basophils % Not Reportable Basophils % (Manual) 1 % Metamyelocytes % 1 % Myelocytes % 2 % Neutrophils # Not Reportable Neutrophils # (Manual) 3.07 (1.3-7.7) k/uL Lymphocytes # Not Reportable Lymphocytes # (Manual) 0.82 L (1.0-4.8) k/uL Monocytes # Not Reportable Monocytes # (Manual) 0.34 (0-1.0) k/uL Eosinophils # Not Reportable Eosinophils # (Manual) 0.48 (0-0.7) k/uL Basophils # Not Reportable Basophils # (Manual) 0.05 (0-0.2) k/uL Metamyelocytes # (Man) 0.05 H (0) k/uL Myelocytes # (Manual) 0.10 H (0) k/uL Nucleated RBCs 4 H (0-0) /100 WBC Manual Slide Review Performed Polychromasia Present Hypochromasia Marked Poikilocytosis Slight Anisocytosis Slight Macrocytosis Slight PT 14.3 H (9.0-12.0) sec INR 1.4 H (<1.2) APTT 29.2 (22.0-30.0) sec Sodium 140 (137-145) mmol/L Potassium 5.8 H (3.5-5.1) mmol/L Chloride 101 (98-107) mmol/L Carbon Dioxide 33 H (22-30) mmol/L Anion Gap 6 mmol/L BUN 92 H (9-20) mg/dL Creatinine 3.67 H (0.66-1.25) mg/dL Est GFR (CKD-EPI)AfAm 19 (>60 ml/min/1.73 sqM) Est GFR (CKD-EPI)NonAf 17 (>60 ml/min/1.73 sqM) Glucose 95 (74-99) mg/dL Plasma Lactic Acid Brandon (0.7-2.0) mmol/L Calcium 8.8 (8.4-10.2) mg/dL Magnesium 3.5 H (1.6-2.3) mg/dL Total Bilirubin 0.8 (0.2-1.3) mg/dL AST 21 (17-59) U/L ALT 6 (4-49) U/L Alkaline Phosphatase 85 (38-126) U/L Troponin I (0.000-0.034) ng/mL NT-Pro-B Natriuret Pep pg/mL Total Protein 5.6 L (6.3-8.2) g/dL Albumin 2.7 L (3.5-5.0) g/dL Urine Color Urine Appearance (Clear) Urine pH (5.0-8.0) Ur Specific Howe (1.001-1.035) Urine Protein (Negative) Urine Glucose (UA) (Negative) Urine Ketones (Negative) Urine Blood (Negative) Urine Nitrite (Negative) Urine Bilirubin (Negative) Urine Urobilinogen (<2.0) mg/dL Ur Leukocyte Esterase (Negative) Urine RBC (0-5) /hpf Urine WBC (0-5) /hpf Ur Squamous Epith Cells (0-4) /hpf Urine Bacteria (None) /hpf Hyaline Casts (0-2) /lpf Urine Mucus (None) /hpf 01/30/21 01/30/21 01/30/21 Range/Units 11:47 11:47 11:47 WBC (3.8-10.6) k/uL RBC (4.30-5.90) m/uL Hgb (13.0-17.5) gm/dL Hct (39.0-53.0) % MCV (80.0-100.0) fL MCH (25.0-35.0) pg MCHC (31.0-37.0) g/dL RDW (11.5-15.5) % Plt Count (150-450) k/uL MPV Neutrophils % Neutrophils % (Manual) % Lymphocytes % Lymphocytes % (Manual) % Monocytes % Monocytes % (Manual) % Eosinophils % Eosinophils % (Manual) % Basophils % Basophils % (Manual) % Metamyelocytes % % Myelocytes % % Neutrophils # Neutrophils # (Manual) (1.3-7.7) k/uL Lymphocytes # Lymphocytes # (Manual) (1.0-4.8) k/uL Monocytes # Monocytes # (Manual) (0-1.0) k/uL Eosinophils # Eosinophils # (Manual) (0-0.7) k/uL Basophils # Basophils # (Manual) (0-0.2) k/uL Metamyelocytes # (Man) (0) k/uL Myelocytes # (Manual) (0) k/uL Nucleated RBCs (0-0) /100 WBC Manual Slide Review Polychromasia Hypochromasia Poikilocytosis Anisocytosis Macrocytosis PT (9.0-12.0) sec INR (<1.2) APTT (22.0-30.0) sec Sodium (137-145) mmol/L Potassium (3.5-5.1) mmol/L Chloride (98-107) mmol/L Carbon Dioxide (22-30) mmol/L Anion Gap mmol/L BUN (9-20) mg/dL Creatinine (0.66-1.25) mg/dL Est GFR (CKD-EPI)AfAm (>60 ml/min/1.73 sqM) Est GFR (CKD-EPI)NonAf (>60 ml/min/1.73 sqM) Glucose (74-99) mg/dL Plasma Lactic Acid Brandon 1.0 (0.7-2.0) mmol/L Calcium (8.4-10.2) mg/dL Magnesium (1.6-2.3) mg/dL Total Bilirubin (0.2-1.3) mg/dL AST (17-59) U/L ALT (4-49) U/L Alkaline Phosphatase (38-126) U/L Troponin I 0.099 H* (0.000-0.034) ng/mL NT-Pro-B Natriuret Pep 04548 pg/mL Total Protein (6.3-8.2) g/dL Albumin (3.5-5.0) g/dL Urine Color Urine Appearance (Clear) Urine pH (5.0-8.0) Ur Specific Howe (1.001-1.035) Urine Protein (Negative) Urine Glucose (UA) (Negative) Urine Ketones (Negative) Urine Blood (Negative) Urine Nitrite (Negative) Urine Bilirubin (Negative) Urine Urobilinogen (<2.0) mg/dL Ur Leukocyte Esterase (Negative) Urine RBC (0-5) /hpf Urine WBC (0-5) /hpf Ur Squamous Epith Cells (0-4) /hpf Urine Bacteria (None) /hpf Hyaline Casts (0-2) /lpf Urine Mucus (None) /hpf 01/30/21 Range/Units 12:02 WBC (3.8-10.6) k/uL RBC (4.30-5.90) m/uL Hgb (13.0-17.5) gm/dL Hct (39.0-53.0) % MCV (80.0-100.0) fL MCH (25.0-35.0) pg MCHC (31.0-37.0) g/dL RDW (11.5-15.5) % Plt Count (150-450) k/uL MPV Neutrophils % Neutrophils % (Manual) % Lymphocytes % Lymphocytes % (Manual) % Monocytes % Monocytes % (Manual) % Eosinophils % Eosinophils % (Manual) % Basophils % Basophils % (Manual) % Metamyelocytes % % Myelocytes % % Neutrophils # Neutrophils # (Manual) (1.3-7.7) k/uL Lymphocytes # Lymphocytes # (Manual) (1.0-4.8) k/uL Monocytes # Monocytes # (Manual) (0-1.0) k/uL Eosinophils # Eosinophils # (Manual) (0-0.7) k/uL Basophils # Basophils # (Manual) (0-0.2) k/uL Metamyelocytes # (Man) (0) k/uL Myelocytes # (Manual) (0) k/uL Nucleated RBCs (0-0) /100 WBC Manual Slide Review Polychromasia Hypochromasia Poikilocytosis Anisocytosis Macrocytosis PT (9.0-12.0) sec INR (<1.2) APTT (22.0-30.0) sec Sodium (137-145) mmol/L Potassium (3.5-5.1) mmol/L Chloride (98-107) mmol/L Carbon Dioxide (22-30) mmol/L Anion Gap mmol/L BUN (9-20) mg/dL Creatinine (0.66-1.25) mg/dL Est GFR (CKD-EPI)AfAm (>60 ml/min/1.73 sqM) Est GFR (CKD-EPI)NonAf (>60 ml/min/1.73 sqM) Glucose (74-99) mg/dL Plasma Lactic Acid Brandon (0.7-2.0) mmol/L Calcium (8.4-10.2) mg/dL Magnesium (1.6-2.3) mg/dL Total Bilirubin (0.2-1.3) mg/dL AST (17-59) U/L ALT (4-49) U/L Alkaline Phosphatase (38-126) U/L Troponin I (0.000-0.034) ng/mL NT-Pro-B Natriuret Pep pg/mL Total Protein (6.3-8.2) g/dL Albumin (3.5-5.0) g/dL Urine Color Yellow Urine Appearance Cloudy (Clear) Urine pH 5.0 (5.0-8.0) Ur Specific Howe 1.017 (1.001-1.035) Urine Protein 1+ H (Negative) Urine Glucose (UA) Negative (Negative) Urine Ketones Negative (Negative) Urine Blood Negative (Negative) Urine Nitrite Negative (Negative) Urine Bilirubin 1+ H (Negative) Urine Urobilinogen 2.0 (<2.0) mg/dL Ur Leukocyte Esterase Moderate H (Negative) Urine RBC 8 H (0-5) /hpf Urine WBC 13 H (0-5) /hpf Ur Squamous Epith Cells 1 (0-4) /hpf Urine Bacteria Rare H (None) /hpf Hyaline Casts 14 H (0-2) /lpf Urine Mucus Rare H (None) /hpf Disposition Clinical Impression: Dyspnea, Acute kidney injury Disposition: ADMITTED IP TO THIS HOSP Referrals: Dejon Watson MD [Primary Care Provider] - 1-2 days Time of Disposition: 15:04
[2021-01-30 12:17] LABS: Anisocytosis Slight; HCT 31.4 % (39.0-53.0); HGB 8.9 gm/dL (13.0-17.5); Hypochromasia Marked; MCH 27.1 pg (25.0-35.0); MCHC 28.3 g/dL (31.0-37.0); MCV 95.8 fL (80.0-100.0); Macrocytosis Slight; Mean Platelet Volume 7.6; Platelet Count 224 k/uL (150-450); Poikilocytosis Slight; RBC 3.28 m/uL (4.30-5.90); RDW 18.7 % (11.5-15.5)
[2021-01-30 12:26] LABS: INR 1.4 (<1.2); Partial Thromboplastin Time 29.2 sec (22.0-30.0); Prothrombin Time 14.3 sec (9.0-12.0)
[2021-01-30 12:32] LABS: Albumin 2.7 g/dL (3.5-5.0); Calcium 8.8 mg/dL (8.4-10.2); Magnesium 3.5 mg/dL (1.6-2.3); Potassium 5.8 mmol/L (3.5-5.1); Total Bilirubin 0.8 mg/dL (0.2-1.3); Total Protein 5.6 g/dL (6.3-8.2)
[2021-01-30 12:40] LABS: Appearance,Urine Cloudy (Clear); Bacteria,Urine Rare /hpf; Bilirubin,Urine 1+ (Negative); Blood,Urine Negative (Negative); Color,Urine Yellow; Glucose,Urine (UA) Negative (Negative); Hyaline Casts,Urine 14 /lpf (0-2); Ketones,Urine Negative (Negative); Leukocyte Esterase,Urine Moderate (Negative); Mucus,Urine Rare /hpf; Nitrite,Urine Negative (Negative); Protein,Urine 1+ (Negative); RBC,Urine 8 /hpf (0-5); Specific Gravity,Urine 1.017 (1.001-1.035); Squamous Epithelial Cell,Urine 1 /hpf (0-4); WBC,Urine 13 /hpf (0-5)
--- NOTE | 2021-01-30 12:43 | XR ---
EXAMINATION TYPE: XR chest 2V DATE OF EXAM: 01/30/2021 COMPARISON: 07/07/2020 HISTORY: Shortness of breath TECHNIQUE: Frontal and lateral views of the chest are obtained. FINDINGS: Scattered senescent parenchymal changes noted. Hyperinflation compatible with COPD. There is evidence of cardiomegaly with pulmonary venous congestion. No overt failure at this time. Sm all right effusion noted. Mediastinal structures are stable and grossly unremarkable. No evidence for hilar prominence. Degenerative changes dorsal spine. IMPRESSION: 1. There is evidence of cardiomegaly with pulmonary venous congestion. No overt failure at this time. Small right effusion noted.
[2021-01-30 12:59] LABS: Basophils # (M) 0.05 k/uL (0-0.2); Eosinophils # (M) 0.48 k/uL (0-0.7); Lymphocytes # (M) 0.82 k/uL (1.0-4.8); Metamyelocytes # (M) 0.05 k/uL (0); Metamyelocytes % 1 %; Monocytes # (M) 0.34 k/uL (0-1.0); Myelocytes % 2 %; Neutrophils # (M) 3.07 k/uL (1.3-7.7); Neutrophils % (M) 64 %; Nucleated Red Blood Cells 4 /100 WBC (0-0); Total Cells Counted 200; WBC 4.8 k/uL (3.8-10.6)
[2021-01-30 13:00] LABS: Polychromasia Present
[2021-01-30] MEDS ORDERED: SODIUM POLYSTYRENE SULFONATE 15 GM/60 ML BOTTLE PO STA ×2 (13:39→20:51)
[2021-01-30] MEDS ORDERED: SODIUM CHLORIDE 0.9% 1,000 ML IV ONE (15:04)
[2021-01-30] MEDS ORDERED: ZOLPIDEM 5 MG TAB PO PRN (20:55)
[2021-01-30] MEDS ORDERED: ACETAMINOPHEN TAB 325 MG TAB PO PRN (20:55)
[2021-01-30] MEDS ORDERED: IPRATROPIUM-ALBUTEROL 3 ML NEB INHALATION PRN (20:57)
[2021-01-30] MEDS: BUDESONIDE 1 MG/2 ML NEBU INHALATION SCH (21:19)
[2021-01-30] MEDS: FORMOTEROL FUMARATE 20 MCG/2 ML NEBU INHALATION SCH (21:20)
--- NOTE | 2021-01-30 21:31 | HP ---
HISTORY AND PHYSICAL DATE OF SERVICE: 01/30/2021. CHIEF COMPLAINT: Shortness of breath. HISTORY OF PRESENT ILLNESS: This 60-year-old gentleman with a past medical history of multiple medical problems, including atrial ablation, asthma, CHF, COPD, diabetes, GERD, hypertension, hyperlipidemia, is being followed by primary physician in the [facility] and the patient is complaining of increased shortness of breath. The patient was taken to [facility] and was admitted to the hospital for further evaluation and treatment. Chest x-ray showed possible CHF and the patient has extensive bilateral cellulitis. The patient had Mccloud catheter. The patient also had renal failure. Patient is refusing medication as well. The patient also has hyperkalemia. Kayexalate has been refused. The patient also had some change in mental status also. There is no history of fever, rigors or chills. No history of headache, loss of consciousness, or seizures. In the ER, Covid 19 was negative. The troponin was found to be 0.99, indeterminate. The patient also hypotensive in the ER. PAST MEDICAL HISTORY: Atrial fibrillation, asthma, CHF, COPD, diabetes, GERD, hyperlipidemia. MEDICATIONS: Home medications are: Ambien. Flomax, omeprazole, Lopressor, Lidocaine, DuoNeb, folic acid, Advair, iron, Aranesp, vitamin B12, Lipitor, aspirin, Lac-Hydrin. ALLERGIES: BISACODYL. FAMILY HISTORY: History of CAD, diabetes in the family. SOCIAL HISTORY: Previous history of smoking. No history of alcohol. REVIEW OF SYSTEMS: ENT: Diminished vision. Diminished hearing. CARDIOVASCULAR: As mentioned earlier. RESPIRATORY: As mentioned earlier. GI: No nausea or vomiting. : As mentioned earlier. NERVOUS SYSTEM: As mentioned earlier. ALLERGY/IMMUNOLOGY: No asthma or hayfever. MUSCULOSKELETAL as mentioned earlier. HEMATOLOGY/ONCOLOGY: As mentioned earlier. ENDOCRINE: As mentioned earlier. CONSTITUTIONAL: As mentioned earlier. DERMATOLOGY: Negative. RHEUMATOLOGY: Negative. PSYCHIATRY: As mentioned earlier. PHYSICAL EXAMINATION: The patient is alert and oriented x2. Pulse 84. Blood pressure 130/90, respiration 18, temperature 98.3, pulse ox 96% on 4 L. HEENT is conjunctivae normal. Oral mucosa moist. NECK is no jugular venous distention. No carotid bruit. No lymph node enlargement. CARDIOVASCULAR SYSTEM: S1, S2 muffled. RESPIRATION: Breath sounds diminished in the bases. A few scattered rhonchi. ABDOMEN: Soft, obese, nontender. LEGS: Bilateral leg edema, some cellulitis also present. NERVOUS SYSTEM: Higher functions as mentioned earlier. Moves all 4 limbs. Diffusely weak. LYMPHATICS: No lymph nodes palpable in the neck, axillae or groin. SKIN: As mentioned. JOINTS: No active deforming arthropathy. LABS: WBC 4.8, hemoglobin is 8.9. Sodium is 140, potassium 5.3. [place]inine 3[place] [address]. ASSESSMENT: 1. Shortness of breath possibly multifactorial with chronic obstructive pulmonary disease acute exacerbation as well as congestive heart failure acute exacerbation. Ejection fraction unknown. 2. Acute on chronic renal failure with acute tubular necrosis. 3. Hyperkalemia. 4. Anemia, normocytic anemia of chronic disease. 5. Troponin 0.09 indeterminate. 6. Hypoalbuminemia with mild protein calorie malnutrition. 7. Possible acute urinary tract infection present on admission. 8. History of atrial fibrillation. 9. History of asthma. 10.History of chronic obstructive pulmonary disease. 11.Diabetes mellitus type 2. 12.Gastroesophageal reflux disease. 13.Hypertension. 14.Hyperlipidemia. 15.History of degenerative joint disease. 16.History of sleep apnea. 17.History of ESBL and MRSA in the urine. 18.Bilateral leg cellulitis. 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 20.Indwelling Mccloud catheter for urinary retention. 21.Adenoidectomy. 22.Tonsillectomy. 23.Anxiety. 24.History of THC. 25.Morbid obesity with BMI of 50.5. RECOMMENDATIONS AND DISCUSSION: In this 60-year-old gentleman who presented with multiple complex medical issues, we will monitor the patient closely, resume the home medications. I would recommend intensive bronchodilators. I would also recommend empiric antibiotics. Cultures will be obtained. Cardiology and pulmonology be consulted as well as Nephrology. Kayexalate. Monitor creatinine closely. Prognosis is extremely guarded because of multiple complex medical issues. Further recommendations to follow. Copy of dictation being forwarded to Dr. Fierro who is the primary physician. MMODL / SANGN: [id number] /
[2021-01-30] MEDS: APIXABAN 5 MG TAB PO SCH (22:34)
[2021-01-30] MEDS: ATORVASTATIN 40 MG TAB PO SCH (22:34)
[2021-01-30] MEDS: HYDROcodone/APAP 5-325MG 1 EACH TAB PO PRN (22:35)
[2021-01-30] MEDS: LIDOCAINE 2% GEL 30 ML TUBE URETHRAL SCH (23:08)
[2021-01-30] MEDS: ARTIFICIAL TEARS-HYPROMELLOSE DROPS 15 ML BTL BOTH EYES SCH (23:08)
[2021-01-30] MEDS: TAMSULOSIN 0.4 MG CAP.ER.24H PO SCH (23:17)
[2021-01-31 06:34] LABS: Glucose,Whole Blood 83 mg/dL (75-99)
[2021-01-31] MEDS: IPRATROPIUM-ALBUTEROL 3 ML NEB INHALATION SCH ×4 (07:22→20:56)
[2021-01-31] MEDS: BUDESONIDE 1 MG/2 ML NEBU INHALATION SCH ×2 (07:22→20:56)
[2021-01-31] MEDS: FORMOTEROL FUMARATE 20 MCG/2 ML NEBU INHALATION SCH ×2 (07:23→20:56)
[2021-01-31] MEDS ORDERED: ASPIRIN 81 MG PO SCH (09:00)
[2021-01-31 09:36] LABS: Calcium 8.7 mg/dL (8.4-10.2); Potassium 5.6 mmol/L (3.5-5.1)
[2021-01-31 09:56] LABS: Anisocytosis Slight; Basophils # (A) 0.1 k/uL (0-0.2); Basophils % (A) 1 %; Eosinophils # (A) 0.5 k/uL (0-0.7); Eosinophils % (A) 10 %; HCT 33.7 % (39.0-53.0); HGB 9.9 gm/dL (13.0-17.5); Hypochromasia Marked; Lymphocytes # (A) 0.8 k/uL (1.0-4.8); Lymphocytes % (A) 16 %; MCH 28.6 pg (25.0-35.0); MCHC 29.3 g/dL (31.0-37.0); MCV 97.7 fL (80.0-100.0); Macrocytosis Slight; Mean Platelet Volume 7.8; Monocytes # (A) 0.4 k/uL (0-1.0); Monocytes % (A) 8 %; Neutrophils # (A) 3.1 k/uL (1.3-7.7); Neutrophils % (A) 63 %; Platelet Count 193 k/uL (150-450); RBC 3.45 m/uL (4.30-5.90); RDW 18.7 % (11.5-15.5); WBC 4.9 k/uL (3.8-10.6)
[2021-01-31] MEDS: FUROSEMIDE 10 MG/ML 4 ML VIAL IV SCH ×2 (10:16→20:05)
[2021-01-31] MEDS: APIXABAN 5 MG TAB PO SCH (10:17)
[2021-01-31] MEDS: FOLIC ACID 1 MG TAB PO SCH (10:17)
[2021-01-31] MEDS: CYANOCOBALAMIN 500 MCG TAB PO SCH (10:17)
[2021-01-31] MEDS: allopurinoL 300 MG TAB PO SCH (10:17)
[2021-01-31] MEDS: PANTOPRAZOLE 40 MG TABLET PO SCH (10:17)
[2021-01-31] MEDS: FERROUS SULFATE 325 MG TAB PO SCH (10:17)
[2021-01-31 10:57] LABS: Poikilocytosis (M) Present
--- NOTE | 2021-01-31 11:12 | P.NPCON ---
History of Present Illness - Reason for Consult acute renal failure, chronic renal failure - History of Present Illness Reason for consultation: Acute kidney injury on chronic kidney disease History of present illness: Patient is a 60-year-old male seen in renal consultation for acute kidney injury and chronic kidney disease. Patient presented from an extended care facility due to altered mental status and hypoxia. It is noted from the chart that the patient was not wearing his oxygen and became more altered. So far this admission he's been keeping his oxygen on and his mentation appears to be fine. COVID-19 PCR was negative. Patient has chronic kidney disease stage IIIB/4 with baseline creatinine near 1.5-1.7 from July 2020 but this month his creatinine has been in the range of 2.8-3. It was elevated at 3.67 this admission and is 3.7 today. His blood pressure has been in the systolic 90s to low 100s. He did receive normal saline bolus on admission. This morning he was started on IV Lasix. Patient has a chronic Mccloud catheter. He has history of systolic CHF with ejection fraction of 45-50% with moderate tricuspid regurgitation and severe pulmonary hypertension. Chest x-ray was suggestive of cardiomegaly and vascular congestion. No fever or chills. Currently on 4 L mary al cannula. Vital signs are stable. General: The patient appeared well nourished and normally developed. HEENT: Head exam is unremarkable. Neck is without jugular venous distension. LUNGS: Breath sounds decreased. HEART: Rate and Rhythm are regular. ABDOMEN: Soft, nontender. EXTREMITITES: 2+ edema. Chronic changes noted. Past Medical History Past Medical History: Atrial Fibrillation, Asthma, Heart Failure, COPD, Diabetes Mellitus, GERD/Reflux, Hyperlipidemia, Hypertension, Neurologic Disorder, Osteoarthritis (OA), Respiratory Disorder, Sleep Apnea/CPAP/BIPAP, Vascular Disorder Additional Past Medical History / Comment(s): Pt recently admitted to [facility] on 01/17/21 with acute on chronic kidney disease, ESBL urine and uncontrolled HTN. Other hx: NIDDM, bilateral lower leg and feet neuropathy, oxygen dependent, SUNIL with Cpap, CKD stage III-IV, chronic anemia, BPH, urinary retention, IDC, chronic venous stasis/skin changes/discoloration, wounds to R arm/buttock/thighs per pt, gout-travels everywhere per pt History of Any Multi-Drug Resistant Organisms: ESBL, MRSA Date of last positivie culture/infection: 01/17/21 ESBL MRSA MDRO Source:: ESBL URINE MRSA LOW BACK Past Surgical History: Adenoidectomy, Tonsillectomy Additional Past Surgical History / Comment(s): Pyloric stenosis with surgery when he was an infant, bilateral knee arthroscopies, Past Anesthesia/Blood Transfusion Reactions: No Reported Reaction Smoking Status: Former smoker - Past Family History Father Family Medical History: Coronary Artery Disease (CAD), Diabetes Mellitus Additional Family Medical History / Comment(s): Father had heart disease. He at age 74 of possible a PA-pt not sure. Mother Family Medical History: Congestive Heart Failure (CHF), COPD, Coronary Artery Disease (CAD) Additional Family Medical History / Comment(s): Mother had heart problems. She at age 72 yrs. She had osteoporosis. Brother(s) Family Medical History: No Reported History Sister(s) Family Medical History: Diabetes Mellitus Daughter(s) Family Medical History: No Reported History Son(s) Family Medical History: No Reported History Medications and Allergies Home Medications Medication Instructions Recorded Confirmed Type Fluticasone/Salmeterol [Advair 1 puff INHALATION RT-BID 02/10/16 01/30/21 History 250-50 Diskus] Aspirin [Adult Low Dose Aspirin EC] 81 mg PO DAILY 02/03/19 01/30/21 History Allopurinol [Zyloprim] 300 mg PO DAILY 06/26/20 01/30/21 History Cyanocobalamin [Vitamin B-12] 500 mcg PO DAILY 06/26/20 01/30/21 History Ferrous Sulfate [Iron (65 MG 325 mg PO DAILY 06/26/20 01/30/21 History Elemental)] Folic Acid 0.4 mg PO DAILY 06/26/20 01/30/21 History Ipratropium-Albuterol Nebulize 3 ml INHALATION RT-Q8H PRN 06/26/20 01/30/21 History [Duoneb 0.5 mg-3 mg/3 ml Soln] Acetaminophen Tab [Tylenol] 650 mg PO Q8H PRN #0 07/05/20 01/30/21 Rx Ammonium Lactate Lotion 1 applic TOPICAL DAILY 01/17/21 01/30/21 History [Lac-Hydrin 12% Lotion] Apixaban [Eliquis] 5 mg PO BID 01/17/21 01/30/21 History Artificial Tears-Hypromellose 2 drops BOTH EYES BID 01/17/21 01/30/21 History [Artificial Tear Drops] Atorvastatin [Lipitor] 40 mg PO HS 01/17/21 01/30/21 History Furosemide [Lasix] 20 mg PO BID@0900,1700 01/17/21 01/30/21 History Lidocaine 2% Gel [Xylocaine Jelly 1 applic URETHRAL BID 01/17/21 01/30/21 History 2%] Tamsulosin HCl [Flomax] 0.4 mg PO HS 01/17/21 01/30/21 History Metoprolol Tartrate [Lopressor] 25 mg PO Q8HR #90 tab 01/24/21 01/30/21 Rx Zolpidem [Ambien] 2.5 mg PO HS PRN #4 tab 01/24/21 01/30/21 Rx Darbepoetin Grant [Aranesp] 60 mcg SQ WOOD@0900 01/30/21 01/30/21 History Omeprazole 20 mg PO DAILY 01/30/21 01/30/21 History Allergies Allergy/AdvReac Type Severity Reaction Status Date / Time bisacodyl Allergy Unknown Verified 01/30/21 12:39 Physical Exam Vitals: Vital Signs Temp Pulse Pulse Resp BP BP Pulse Ox 01/31/21 09:54 97.5 F L 83 20 99/60 96 01/31/21 07:45 76 01/31/21 07:39 76 01/31/21 07:38 80 01/31/21 07:23 80 01/31/21 03:34 97.5 F L 98 18 100/59 95 01/31/21 00:56 100 22 01/30/21 23:59 97.3 F L 100 22 103/58 98 01/30/21 22:37 98.9 F 86 18 102/52 98 01/30/21 21:30 88 20 128/90 96 01/30/21 20:00 98.3 F 84 18 113/98 96 01/30/21 18:45 89 18 96/62 98 01/30/21 18:15 89 16 97/71 01/30/21 18:00 82 13 93/52 01/30/21 17:30 98 18 97/65 01/30/21 17:15 86 16 103/62 01/30/21 17:00 92 16 100/63 01/30/21 16:45 90 16 90/64 01/30/21 16:30 97 21 99/61 01/30/21 16:15 93 16 101/61 01/30/21 15:45 95 21 95/64 01/30/21 15:30 89 28 H 94/54 01/30/21 15:00 81 9 L 119/104 01/30/21 14:45 88 18 95/57 01/30/21 14:30 92 13 94/74 96 01/30/21 14:15 85 14 93/72 98 01/30/21 14:00 80 16 91/58 98 01/30/21 13:45 77 16 86/52 01/30/21 13:15 80 16 81/48 01/30/21 13:00 73 16 98/56 01/30/21 12:30 80 18 85/47 01/30/21 12:00 89 16 85/64 98 01/30/21 11:56 22 01/30/21 11:45 90 16 85/64 95 01/30/21 11:32 97.9 F 87 18 100/86 97 01/30/21 11:30 89 17 100/86 98 Intake and Output 01/30/21 01/31/21 01/31/21 22:59 06:59 14:59 Intake Total 240 Output Total 720 Balance -720 240 Intake: Oral 240 Output: Urine 720 Other: Weight 173.726 kg 173 kg Results - Lab Results Most recent lab results Calcium 8.7 mg/dL (8.4-10.2) 01/31/21 08:20 Magnesium 3.5 mg/dL (1.6-2.3) H 01/30/21 11:47 01/31/21 08:20 01/31/21 08:20 Assessment and Plan Plan: Assessment: 1. Acute kidney injury mostly prerenal secondary to cardiorenal syndrome. Creatinine 3.7 today. 2. Chronic kidney disease stage IIIB/4 with baseline creatinine 1.5-1.7 from July 2020. However this month his creatinine has been in the range of 2.8- 3.2. 3. Acute on chronic systolic CHF with ejection fraction of 40-45% with moderate tricuspid regurgitation and severe pulmonary hypertension. 4. Volume overload. 5. Anemia of chronic kidney disease. Rule out iron deficiency. 6. Hyperkalemia secondary to acute kidney injury. No evidence of acidosis. Blood sugars not elevated. Plan: Hep-Lock IV fluids. Maintain IV Lasix 40 mg twice daily. Check iron studies. Add Aranesp. Check renal ultrasound. Renal diet and 1500 mL fluid restriction. Repeat potassium level this evening. Continue to monitor renal function and urine output. Thank you for the consultation. I will continue to follow the patient with you during his hospital stay.
[2021-01-31] MEDS: AMMONIUM LACTATE 12% LOTION 225 GM BTL TOPICAL SCH (11:57)
[2021-01-31] MEDS: ARTIFICIAL TEARS-HYPROMELLOSE DROPS 15 ML BTL BOTH EYES SCH ×2 (11:58→20:04)
[2021-01-31] MEDS: LIDOCAINE 2% GEL 30 ML TUBE URETHRAL SCH ×2 (11:58→20:05)
[2021-01-31] MEDS: MIDODRINE 5 MG TAB PO SCH ×2 (11:58→17:13)
[2021-01-31] MEDS ORDERED: DARBEPOETIN ALFA 40 MCG/0.4 ML SYRINGE SQ SCH (12:00)
[2021-01-31 12:21] LABS: Glucose,Whole Blood 101 mg/dL (75-99)
--- NOTE | 2021-01-31 12:34 | P.CRDCN ---
History of Present Illness Consult date: 01/31/21 History of present illness: HISTORY OF PRESENT ILLNESS: This is a 60-year-old male with a past medical history significant for CHF, COPD, diabetes mellitus, chronic kidney disease, hypertension, hyperlipidemia, atrial fibrillation, and home oxygen. Patient follows with Dr. White. We have been asked to see the patient in consultation for congestive heart failure. Patient examined at the bedside. Patient was brought to the hospital from [facility] secondary to shortness of breath and hypoxia. The patient states he has been feeling short of breath for the last 3 days. He reports increased lower extremity edema as well. He denies chest pain or pressure. EKG reveals atrial flutter with controlled ventricular rate. Right axis deviation. Chest xray evidence of cardiomegaly with pulmonary venous congestion. No overt failure at this time. Small right pleural effusion noted. Laboratory data: WBC 4.9. Hemoglobin 9.9. Platelet count 193. Sodium 140. Potassium 5.6. BUN 88. Creatinine 3.70. Troponin 0.099. BNP 10,300. Current home cardiac medications include metoprolol 25 mg 3 times a day, Lasix 20 mg twice a day, Lipitor 40 mg daily, aspirin 81 mg daily, Eliquis 5 mg twice a day Most recent echocardiogram obtained in July 2020 revealed ejection fraction 45-50%, mild mitral regurgitation, moderate tricuspid regurgitation, and severe pulmonary hypertension REVIEW OF SYSTEMS: At the time of my exam: CONSTITUTIONAL: Denies fever or chills. HEENT: Denies blurred vision, vision changes, or eye pain. Denies hemoptysis CARDIOVASCULAR: Denies chest pain. Denies orthopnea. Denies PND. Denies palpitations RESPIRATORY: Denies shortness of breath. GASTROINTESTINAL: Denies abdominal pain. Denies nausea or vomiting. HEMATOLOGIC: Denies bleeding disorders. GENITOURINARY: Denies any blood in urine. SKIN: Denies pruitis. Denies rash. PHYSICAL EXAM: VITAL SIGNS: Reviewed. GENERAL: Well-developed in no acute distress. HEENT: Head is normocephalic. Pupils are equal, round. Sclerae anicteric. Mucous membranes of the mouth are moist. Neck supple. No JVD or thyromegaly LUNGS: Respirations even and unlabored. Lungs diminished bilaterally, patient un able to sit up at time of examination to listen to posterior lungs. HEART: Irregular rate and rhythm. S1 and S2 heard. ABDOMEN: Soft. Nondistended. Nontender. EXTREMITIES: Normal range of motion. No clubbing or cyanosis. Peripheral pulses intact. 3+ bilateral lower extremity edema NEUROLOGIC: Awake and alert. Oriented x 3. ASSESSMENT: Shortness of breath Acute exacerbation of chronic diastolic heart failure, ejection fraction 45-50% Acute on chronic kidney disease Abnormal troponin, secondary to chronic kidney disease, no evidence of acute coronary syndrome Chronic persistent atrial fibrillation, on anticoagulation with Eliquis Valvular heart disease: Mild mitral regurgitation and moderate tricuspid regurgitation Severe pulmonary hypertension Hypertension Hyperlipidemia COPD on home O2 Diabetes mellitus PLAN: Obtain 2-D echo to assess cardiac structure and function Nephrology following for acute on chronic kidney disease Begin Lasix 40 mg IV every 12 hours Daily weights Monitor kidney function Accurate I&O Continue telemetry monitoring Continue Eliquis for anticoagulation Resume additional cardiac medications Further recommendations pending patient's course Nurse practitioner note has been reviewed by physician. Signing provider agrees with the documented findings, assessment, and plan of care. Past Medical History Past Medical History: Atrial Fibrillation, Asthma, Heart Failure, COPD, Diabetes Mellitus, GERD/Reflux, Hyperlipidemia, Hypertension, Neurologic Disorder, Osteoarthritis (OA), Respiratory Disorder, Sleep Apnea/CPAP/BIPAP, Vascular Disorder Additional Past Medical History / Comment(s): Pt recently admitted to [facility] on with acute on chronic kidney disease, ESBL urine and uncontrolled HTN. Other hx: NIDDM, bilateral lower leg and feet neuropathy, oxygen dependent, SUNIL with Cpap, CKD stage III-IV, chronic anemia, BPH, urinary retention, IDC, chronic venous stasis/skin changes/discoloration, wounds to R arm/buttock/thighs per pt, gout-travels everywhere per pt History of Any Multi-Drug Resistant Organisms: ESBL, MRSA Date of last positivie culture/infection: 01/17/21 ESBL 2005/2007 MRSA MDRO Source:: ESBL URINE MRSA LOW BACK Past Surgical History: Adenoidectomy, Tonsillectomy Additional Past Surgical History / Comment(s): Pyloric stenosis with surgery when he was an , bilateral knee arthroscopies, Past Anesthesia/Blood Transfusion Reactions: No Reported Reaction Smoking Status: Former smoker - Past Family History Father Family Medical History: Coronary Artery Disease (CAD), Diabetes Mellitus Additional Family Medical History / Comment(s): Father had heart disease. He at age 74 of possible a CA-pt not sure. Mother Family Medical History: Congestive Heart Failure (CHF), COPD, Coronary Artery Di sease (CAD) Additional Family Medical History / Comment(s): Mother had heart problems. She at age 72 yrs. She had osteoporosis. Brother(s) Family Medical History: No Reported History Sister(s) Family Medical History: Diabetes Mellitus Daughter(s) Family Medical History: No Reported History Son(s) Family Medical History: No Reported History Medications and Allergies Home Medications Medication Instructions Recorded Confirmed Type Fluticasone/Salmeterol [Advair 1 puff INHALATION RT-BID 02/10/16 01/30/21 History 250-50 Diskus] Aspirin [Adult Low Dose Aspirin EC] 81 mg PO DAILY 02/03/19 01/30/21 History Allopurinol [Zyloprim] 300 mg PO DAILY 06/26/20 01/30/21 History Cyanocobalamin [Vitamin B-12] 500 mcg PO DAILY 06/26/20 01/30/21 History Ferrous Sulfate [Iron (65 MG 325 mg PO DAILY 06/26/20 01/30/21 History Elemental)] Folic Acid 0.4 mg PO DAILY 06/26/20 01/30/21 History Ipratropium-Albuterol Nebulize 3 ml INHALATION RT-Q8H PRN 06/26/20 01/30/21 History [Duoneb 0.5 mg-3 mg/3 ml Soln] Acetaminophen Tab [Tylenol] 650 mg PO Q8H PRN #0 07/05/20 01/30/21 Rx Ammonium Lactate Lotion 1 applic TOPICAL DAILY 01/17/21 01/30/21 History [Lac-Hydrin 12% Lotion] Apixaban [Eliquis] 5 mg PO BID 01/17/21 01/30/21 History Artificial Tears-Hypromellose 2 drops BOTH EYES BID 01/17/21 01/30/21 History [Artificial Tear Drops] Atorvastatin [Lipitor] 40 mg PO HS 01/17/21 01/30/21 History Furosemide [Lasix] 20 mg PO BID@0900,1700 01/17/21 01/30/21 History Lidocaine 2% Gel [Xylocaine Jelly 1 applic URETHRAL BID 01/17/21 01/30/21 History 2%] Tamsulosin HCl [Flomax] 0.4 mg PO HS 01/17/21 01/30/21 History Metoprolol Tartrate [Lopressor] 25 mg PO Q8HR #90 tab 01/24/21 01/30/21 Rx Zolpidem [Ambien] 2.5 mg PO HS PRN #4 tab 01/24/21 01/30/21 Rx Darbepoetin Grant [Aranesp] 60 mcg SQ WOOD@0900 01/30/21 01/30/21 History Omeprazole 20 mg PO DAILY 01/30/21 01/30/21 History Allergies Allergy/AdvReac Type Severity Reaction Status Date / Time bisacodyl Allergy Unknown Verified 01/30/21 12:39 Physical Exam Vitals: Vital Signs Temp Pulse Pulse Resp BP BP Pulse Ox 01/31/21 12:20 82 01/31/21 11:55 80 16 91/55 98 01/31/21 09:54 97.5 F L 83 20 99/60 96 01/31/21 07:45 76 01/31/21 07:39 76 01/31/21 07:38 80 01/31/21 07:23 80 01/31/21 03:34 97.5 F L 98 18 100/59 95 01/31/21 00:56 100 22 01/30/21 23:59 97.3 F L 100 22 103/58 98 01/30/21 22:37 98.9 F 86 18 102/52 98 01/30/21 21:30 88 20 128/90 96 01/30/21 20:00 98.3 F 84 18 113/98 96 01/30/21 18:45 89 18 96/62 98 01/30/21 18:15 89 16 97/71 01/30/21 18:00 82 13 93/52 01/30/21 17:30 98 18 97/65 01/30/21 17:15 86 16 103/62 01/30/21 17:00 92 16 100/63 01/30/21 16:45 90 16 90/64 01/30/21 16:30 97 21 99/61 01/30/21 16:15 93 16 101/61 01/30/21 15:45 95 21 95/64 01/30/21 15:30 89 28 H 94/54 01/30/21 15:00 81 9 L 119/104 01/30/21 14:45 88 18 95/57 01/30/21 14:30 92 13 94/74 96 01/30/21 14:15 85 14 93/72 98 01/30/21 14:00 80 16 91/58 98 01/30/21 13:45 77 16 86/52 01/30/21 13:15 80 16 81/48 01/30/21 13:00 73 16 98/56 01/30/21 12:30 80 18 85/47 Intake and Output 01/30/21 01/31/21 01/31/21 22:59 06:59 14:59 Intake Total 240 Output Total 720 Balance -720 240 Intake: Oral 240 Output: Urine 720 Other: Weight 173.726 kg 173 kg Results 01/31/21 08:20 01/31/21 08:20 Cardiac Enzymes 01/30/21 01/30/21 Range/Units 11:47 11:47 AST 21 (17-59) U/L Troponin I 0.099 H* (0.000-0.034) ng/mL Coagulation 01/30/21 Range/Units 11:47 PT 14.3 H (9.0-12.0) sec APTT 29.2 (22.0-30.0) sec CBC 01/30/21 01/31/21 Range/Units 11:47 08:20 WBC 4.8 4.9 (3.8-10.6) k/uL RBC 3.28 L 3.45 L (4.30-5.90) m/uL Hgb 8.9 L 9.9 L (13.0-17.5) gm/dL Hct 31.4 L 33.7 L (39.0-53.0) % Plt Count 224 193 (150-450) k/uL Comprehensive Metabolic Panel 01/30/21 01/31/21 Range/Units 11:47 08:20 Sodium 140 140 (137-145) mmol/L Potassium 5.8 H 5.6 H (3.5-5.1) mmol/L Chloride 101 102 (98-107) mmol/L Carbon Dioxide 33 H 33 H (22-30) mmol/L BUN 92 H 88 H (9-20) mg/dL Creatinine 3.67 H 3.70 H (0.66-1.25) mg/dL Glucose 95 92 (74-99) mg/dL Calcium 8.8 8.7 (8.4-10.2) mg/dL AST 21 (17-59) U/L ALT 6 (4-49) U/L Alkaline Phosphatase 85 (38-126) U/L Total Protein 5.6 L (6.3-8.2) g/dL Albumin 2.7 L (3.5-5.0) g/dL Current Medications Generic Name Dose Route Start Last Admin Trade Name Freq PRN Reason Stop Dose Admin Acetaminophen 650 mg 01/30/21 20:55 Acetaminophen Tab 325 Mg Tab PO Q8H PRN Pain Hydrocodone Bitart/Acetaminophen 1 each 01/30/21 20:58 01/30/21 22:35 Hydrocodone/Apap 5-325mg 1 Each Tab PO 1 each Q6HR PRN Administration Pain Albuterol/Ipratropium 3 ml 01/31/21 08:00 01/31/21 12:20 Ipratropium-Albuterol 3 Ml Neb INHALATION 3 ml RT-QID NIKA Administration Albuterol/Ipratropium 3 ml 01/30/21 20:57 Ipratropium-Albuterol 3 Ml Neb INHALATION RT-QID PRN Shortness Of Breath Or Wheezing Allopurinol 300 mg 01/31/21 09:00 01/31/21 10:17 Allopurinol 300 Mg Tab PO 300 mg DAILY NIKA Administration Apixaban 5 mg 01/30/21 21:00 01/31/21 10:17 Apixaban 5 Mg Tab PO 5 mg BID NIKA Administration Artificial Tears 2 drops 01/30/21 21:00 01/31/21 11:58 Artificial Tears-Hypromellose Drops 15 Ml Btl BOTH EYES 2 drops BID NIKA Administration Aspirin 81 mg 01/31/21 09:00 01/31/21 10:16 Aspirin 81 Mg PO 81 mg DAILY NIKA Administration Atorvastatin Calcium 40 mg 01/30/21 21:00 01/30/21 22:34 Atorvastatin 40 Mg Tab PO 40 mg HS NIKA Administration Budesonide 1 mg 01/30/21 20:58 01/31/21 07:22 Budesonide 1 Mg/2 Ml Nebu INHALATION 1 mg RT-BID NIKA Administration Cyanocobalamin 500 mcg 01/31/21 09:00 01/31/21 10:17 Cyanocobalamin 500 Mcg Tab PO 500 mcg DAILY NIKA Administration Darbepoetin Grant 40 mcg 01/31/21 12:00 Darbepoetin Grant 40 Mcg/0.4 Ml Syringe SQ Q7D NIKA Ferrous Sulfate 325 mg 01/31/21 09:00 01/31/21 10:17 Ferrous Sulfate 325 Mg Tab PO 325 mg DAILY NIKA Administration Folic Acid 0.5 mg 01/31/21 09:00 01/31/21 10:17 Folic Acid 1 Mg Tab PO 0.5 mg DAILY NIKA Administration Formoterol Fumarate 20 mcg 01/30/21 20:58 01/31/21 07:23 Formoterol Fumarate 20 Mcg/2 Ml Nebu INHALATION 20 mcg RT-BID NIKA Administration Furosemide 40 mg 01/31/21 09:00 01/31/21 10:16 Furosemide 10 Mg/Ml 4 Ml Vial IV 40 mg Q12HR NIKA Administration Lactic Acid 1 applic 01/31/21 09:00 01/31/21 11:57 Ammonium Lactate 12% Lotion 225 Gm Btl TOPICAL 1 applic DAILY NIKA Administration Lidocaine HCl 1 applic 01/30/21 21:00 01/31/21 11:58 Lidocaine 2% Gel 30 Ml Tube URETHRAL Not Given BID NIKA Midodrine 5 mg 01/31/21 11:15 01/31/21 11:58 Midodrine 5 Mg Tab PO 5 mg AC-BID NIKA Administration Pantoprazole Sodium 40 mg 01/31/21 09:00 01/31/21 10:17 Pantoprazole 40 Mg Tablet PO 40 mg DAILY NIKA Administration Tamsulosin HCl 0.4 mg 01/30/21 21:00 01/30/21 23:17 Tamsulosin 0.4 Mg Cap.Er.24h PO Not Given HS NIKA Zolpidem Tartrate 2.5 mg 01/30/21 20:55 Zolpidem 5 Mg Tab PO HS PRN Insomnia Intake and Output 01/30/21 01/31/21 01/31/21 22:59 06:59 14:59 Intake Total 240 Output Total 720 Balance -720 240 Intake: Oral 240 Output: Urine 720 Other: Weight 173.726 kg 173 kg 01/31/21 08:20 01/31/21 08:20
[2021-01-31] MEDS ORDERED: LEVOFLOXACIN 500MG-D5W PMX 500 MG in DEXTROSE/WATER 1 100ML.BAG IVPB ONE (15:00)
--- NOTE | 2021-01-31 15:37 | PN ---
PROGRESS NOTE DATE OF SERVICE: 01/31/2021 This 60-year-old gentleman who was admitted with shortness of breath possible multifactorial COPD and CHF acute exacerbation closely monitored. Patient continues to be confused also. The patient is started on IV Lasix as well. The patient closely monitored at this time. The blood pressure is slightly better today. The patient is also started on bronchodilators also. PAST MEDICAL HISTORY: Reviewed. REVIEW OF SYSTEMS: CARDIOVASCULAR SYSTEM: No angina. RESPIRATORY SYSTEM: As mentioned earlier. GI: As mentioned earlier. : No dysuria. NERVOUS SYSTEM: No numbness or weakness. CURRENT MEDICATIONS: Current medications are reviewed and include: Tylenol, [place], DuoNeb, Zyloprim, Eliquis, Pulmicort. Doses are reviewed. PHYSICAL EXAMINATION: Patient is alert and oriented x3. Pulse 80, blood pressure 91/55, respirations 16, temperature 97.5, pulse ox 98% on 3 L. HEENT: Conjunctivae normal. NECK: No jugular venous distention. CARDIOVASCULAR: S1, S2 muffled. RESPIRATORY: Breath sounds diminished at the bases. A few scattered rhonchi and crackles. ABDOMEN: Soft, obese. LEGS: Bilateral leg cellulitis. NERVOUS SYSTEM: No focal deficits. LABS: WBC 4.9, hemoglobin 9.9. Sodium 140, potassium 5.6. Creatinine is 3.70. ASSESSMENT: 1. Shortness of breath possibly multifactorial with chronic obstructive pulmonary disease acute exacerbation as well as congestive heart failure acute exacerbation, ejection fraction unknown. 2. Acute on chronic renal failure with acute tubular necrosis. 3. Possible acute urinary tract infection with sepsis and cellulitis with sepsis present on admission. 4. Hyperkalemia. 5. History of noncompliance. 6. Anemia, normocytic anemia of chronic disease. 7. Troponin 0.09 indeterminate. 8. Hypoalbuminemia with mild protein calorie malnutrition. 9. History of atrial fibrillation. 10.History of asthma. 11.History of chronic obstructive pulmonary disease. 12.Diabetes mellitus type 2. 13.Gastroesophageal reflux disease. 14.Hypertension. 15.Hyperlipidemia. 16.History of degenerative joint disease. 17.History of sleep apnea. 18.History of ESBL and MRSA in the urine. 19.Bilateral leg cellulitis. 20.Chronic kidney disease stage 3-4. 21.Indwelling Mccloud catheter for urinary retention. 22.Adenoidectomy. 23.Tonsillectomy. 24.Anxiety. 25.History of THC. 26.Morbid obesity with body mass index of 50.5. RECOMMENDATIONS AND DISCUSSION: Recommend to continue current medications, continue symptomatic treatment. Continue with diuretics and bronchodilators. I would also recommend cultures and empiric antibiotics also. The prognosis guarded because of multiple complex medical issues. Further recommendations to follow. MMMARITZA / SANGN: [id number] /
--- NOTE | 2021-01-31 15:56 | US ---
EXAMINATION TYPE: US kidneys/renal and bladder DATE OF EXAM: 01/31/2021 COMPARISON: [facility] CLINICAL HISTORY: kamila. Diabetic. EXAM MEASUREMENTS: ( US is technically limited by large patient body habitus) Right Kidney: 6.0 x 2.4 x 2.1 cm Left Kidney: 10.4 x 5.x 6.0 cm Post Void Residual Volume: not assessed on inpatient with indwelling bladder catheter Ascites is noted RUQ = 4.3cm A/P, and in RLQ = 7.9cm A/P Right Kidney: small for size with renal appearance showing echogenic atrophied appearance (hyperechoi c sinus with multiple shadowing calcifications) Left Kidney: No hydronephrosis or masses seen and the left kidney shows normal cortical medullary di fferentiation Bladder: indwelling catheter not well seen due to large body habitus There is no evidence for hydronephrosis at this point in time. IMPRESSION: Exam is limited. Right kidney is likely atrophic. There may be some associated calculi. Small amount of ascites.
[2021-01-31 16:54] LABS: Glucose,Whole Blood 96 mg/dL (75-99)
--- NOTE | 2021-01-31 17:43 | P.CNPUL ---
History of Present Illness Consult date: 01/31/21 Requesting physician: Katrina Beltran Reason for consult: dyspnea Chief complaint: Shortness of breath and altered mental status History of present illness: This is a 60-year-old white male, care home resident. Known history of multiple medical problems including CHF, COPD, diabetes, hypertension, dyslipidemia, chronic atrial fibrillation, chronic hypoxic respiratory failure, and he usually sees a manager business planning out of [facility]. Patient was brought in from the care home because he would not keep his oxygen, and he does not keep his BiPAP, and he was noted to be hypoxic and altered mental status. Brought into the ER, chest x-ray and labs are suggestive of mild congestive heart failure. With elevated BNP and abnormal chest x-ray showing mild increase in interstitial congestion/markings. The patient was admitted, he was seen by cardiology on consultation, his EKG showed evidence of atrial flutter with controlled ventricular rate. His most recent echocardiogram in July 2020 showed ejection fraction of 45% with moderate tricuspid regurgitation and severe pulmonary hypertension. Patient was placed on oxygen, he is presently on 4 L nasal cannula, and O2 saturations 99%. He was also placed on Lasix at 40 mg IV push every 12 hours, and he was placed on bro nchodilators in the form of DuoNeb, and Perforomist. As well as Pulmicort. Using my evaluation, the patient was feeling better compared to how he felt when he came in. Review of Systems CONSTITUTIONAL: No fever no chills, no weight loss. HEENT: Negative. CARDIOVASCULAR: As noted in HPI. RESPIRATORY: As noted in HPI. GASTROINTESTINAL: Negative. HEMATOLOGIC: Negative. GENITOURINARY: Negative. SKIN: Negative. Neurologic: Denies headache no blurred vision or dizziness. Psychiatric: Denies any symptoms of active depression. Musculoskeletal: Patient is weak and he is bedbound. Past Medical History Past Medical History: Atrial Fibrillation, Asthma, Heart Failure, COPD, Diabetes Mellitus, GERD/Reflux, Hyperlipidemia, Hypertension, Neurologic Disorder, Osteoarthritis (OA), Respiratory Disorder, Sleep Apnea/CPAP/BIPAP, Vascular Disorder Additional Past Medical History / Comment(s): Pt recently admitted to [facility] on 01/17/21 with acute on chronic kidney disease, ESBL urine and uncontrolled HTN. Other hx: NIDDM, bilateral lower leg and feet neuropathy, oxygen dependent, SUNIL with Cpap, CKD stage III-IV, chronic anemia, BPH, urinary retention, IDC, chronic venous stasis/skin changes/discoloration, wounds to R arm/buttock/thighs per pt, gout-travels everywhere per pt History of Any Multi-Drug Resistant Organisms: ESBL, MRSA Date of last positivie culture/infection: 01/17/21 ESBL MRSA MDRO Source:: ESBL URINE MRSA LOW BACK Past Surgical History: Adenoidectomy, Tonsillectomy Additional Past Surgical History / Comment(s): Pyloric stenosis with surgery when he was an , bilateral knee arthroscopies, Past Anesthesia/Blood Transfusion Reactions: No Reported Reaction Smoking Status: Former smoker - Past Family History Father Family Medical History: Coronary Artery Disease (CAD), Diabetes Mellitus Additional Family Medical History / Comment(s): Father had heart disease. He at age 74 of possible a MT-pt not sure. Mother Family Medical History: Congestive Heart Failure (CHF), COPD, Coronary Artery Disease (CAD) Additional Family Medical History / Comment(s): Mother had heart problems. She at age 72 yrs. She had osteoporosis. Brother(s) Family Medical History: No Reported History Sister(s) Family Medical History: Diabetes Mellitus Daughter(s) Family Medical History: No Reported History Son(s) Family Medical History: No Reported History Medications and Allergies Home Medications Medication Instructions Recorded Confirmed Type Fluticasone/Salmeterol [Advair 1 puff INHALATION RT-BID 02/10/16 01/30/21 History 250-50 Diskus] Aspirin [Adult Low Dose Aspirin EC] 81 mg PO DAILY 02/03/19 01/30/21 History Allopurinol [Zyloprim] 300 mg PO DAILY 06/26/20 01/30/21 History Cyanocobalamin [Vitamin B-12] 500 mcg PO DAILY 06/26/20 01/30/21 History Ferrous Sulfate [Iron (65 MG 325 mg PO DAILY 06/26/20 01/30/21 History Elemental)] Folic Acid 0.4 mg PO DAILY 06/26/20 01/30/21 History Ipratropium-Albuterol Nebulize 3 ml INHALATION RT-Q8H PRN 06/26/20 01/30/21 History [Duoneb 0.5 mg-3 mg/3 ml Soln] Acetaminophen Tab [Tylenol] 650 mg PO Q8H PRN #0 07/05/20 01/30/21 Rx Ammonium Lactate Lotion 1 applic TOPICAL DAILY 01/17/21 01/30/21 History [Lac-Hydrin 12% Lotion] Apixaban [Eliquis] 5 mg PO BID 01/17/21 01/30/21 History Artificial Tears-Hypromellose 2 drops BOTH EYES BID 01/17/21 01/30/21 History [Artificial Tear Drops] Atorvastatin [Lipitor] 40 mg PO HS 01/17/21 01/30/21 History Furosemide [Lasix] 20 mg PO BID@0900,1700 01/17/21 01/30/21 History Lidocaine 2% Gel [Xylocaine Jelly 1 applic URETHRAL BID 01/17/21 01/30/21 History 2%] Tamsulosin HCl [Flomax] 0.4 mg PO HS 01/17/21 01/30/21 History Metoprolol Tartrate [Lopressor] 25 mg PO Q8HR #90 tab 01/24/21 01/30/21 Rx Zolpidem [Ambien] 2.5 mg PO HS PRN #4 tab 01/24/21 01/30/21 Rx Darbepoetin Grant [Aranesp] 60 mcg SQ WOOD@0900 01/30/21 01/30/21 History Omeprazole 20 mg PO DAILY 01/30/21 01/30/21 History Allergies Allergy/AdvReac Type Severity Reaction Status Date / Time bisacodyl Allergy Unknown Verified 01/30/21 12:39 Physical Exam Vitals: Vital Signs Temp Pulse Pulse Resp BP BP Pulse Ox 01/31/21 17:12 18 01/31/21 17:00 18 99 01/31/21 16:11 78 01/31/21 16:01 74 01/31/21 15:40 20 95 01/31/21 15:33 97.3 F L 97 20 108/71 92 L 01/31/21 15:28 22 48 L 01/31/21 13:52 80 16 01/31/21 12:32 84 01/31/21 12:20 82 01/31/21 11:55 80 16 91/55 98 01/31/21 09:54 97.5 F L 83 20 99/60 96 01/31/21 09:50 80 16 01/31/21 07:45 76 01/31/21 07:39 76 01/31/21 07:38 80 01/31/21 07:23 80 01/31/21 03:34 97.5 F L 98 18 100/59 95 01/31/21 00:56 100 22 01/30/21 23:59 97.3 F L 100 22 103/58 98 01/30/21 22:37 98.9 F 86 18 102/52 98 01/30/21 21:30 88 20 128/90 96 01/30/21 20:00 98.3 F 84 18 113/98 96 01/30/21 18:45 89 18 96/62 98 01/30/21 18:15 89 16 97/71 01/30/21 18:00 82 13 93/52 Intake and Output 01/31/21 01/31/21 01/31/21 06:59 14:59 22:59 Intake Total 540 Output Total 720 Balance -720 540 Intake: Oral 540 Output: Urine 720 Other: Voiding Method Indwelling Catheter Weight 173 kg 173 kg Physical Exam: Revealed a 60-year-old white male, obese, in no distress. On 4 L nasal cannula. Head: Atraumatic, normocephalic. HEENT:[Neck is supple.] [No neck masses.] [No thyromegaly.] [No JVD.] Chest: Symmetrical chest expansion, diminished breath sounds at the bases, crackles at the bases. No rhonchi and no wheezes. Cardiac Exam: Irregular irregular rhythm, no S3 gallop, 2/6 systolic murmur thought the precordium. Abdomen: Obese, [Soft, nontender, no megaly, no rebound, no guarding, normal bowel sounds.] Extremities: [No clubbing, 2+ bipedal edema, no cyanosis.] Minutes distal pulses bilaterally. Neurological Exam: [No focal neurologic deficit.] Alert oriented 3, no gross focal deficits. Psychiatric: Normal mood affect and normal mental status examination. Skin: No rashes Results - Laboratory Findings CBC and BMP: 01/31/21 08:20 01/31/21 16:13 PT/INR, D-dimer PT 14.3 sec (9.0-12.0) H 01/30/21 11:47 INR 1.4 (<1.2) H 01/30/21 11:47 Abnormal lab findings: Abnormal Labs 01/30/21 01/30/21 01/30/21 11:47 11:47 11:47 RBC 3.28 L Hgb 8.9 L Hct 31.4 L MCHC 28.3 L RDW 18.7 H Lymphocytes # Lymphocytes # (Manual) 0.82 L Metamyelocytes # (Man) 0.05 H Myelocytes # (Manual) 0.10 H Nucleated RBCs 4 H PT 14.3 H INR 1.4 H Potassium 5.8 H Carbon Dioxide 33 H BUN 92 H Creatinine 3.67 H POC Glucose (mg/dL) Magnesium 3.5 H Troponin I Total Protein 5.6 L Albumin 2.7 L Urine Protein Urine Bilirubin Ur Leukocyte Esterase Urine RBC Urine WBC Urine Bacteria Hyaline Casts Urine Mucus 01/30/21 01/30/21 01/31/21 11:47 12:02 08:20 RBC 3.45 L Hgb 9.9 L Hct 33.7 L MCHC 29.3 L RDW 18.7 H Lymphocytes # 0.8 L Lymphocytes # (Manual) Metamyelocytes # (Man) Myelocytes # (Manual) Nucleated RBCs PT INR Potassium Carbon Dioxide BUN Creatinine POC Glucose (mg/dL) Magnesium Troponin I 0.099 H* Total Protein Albumin Urine Protein 1+ H Urine Bilirubin 1+ H Ur Leukocyte Esterase Moderate H Urine RBC 8 H Urine WBC 13 H Urine Bacteria Rare H Hyaline Casts 14 H Urine Mucus Rare H 01/31/21 01/31/21 01/31/21 08:20 12:18 16:13 RBC Hgb Hct MCHC RDW Lymphocytes # Lymphocytes # (Manual) Metamyelocytes # (Man) Myelocytes # (Manual) Nucleated RBCs PT INR Potassium 5.6 H 5.7 H Carbon Dioxide 33 H BUN 88 H Creatinine 3.70 H POC Glucose (mg/dL) 101 H Magnesium Troponin I Total Protein Albumin Urine Protein Urine Bilirubin Ur Leukocyte Esterase Urine RBC Urine WBC Urine Bacteria Hyaline Casts Urine Mucus - Diagnostic Findings Chest x-ray: image reviewed (As noted in HPI.) Assessment and Plan Assessment: Impression: Acute on chronic hypoxic respiratory failure, multifactorial. Acute systolic congestive heart failure. Chronic obstructive lung disease, relatively inactive. Normally on 2 L of oxygen at home. Acute on chronic kidney disease. Chronic atrial fibrillation. Severe pulmonary hypertension. Dyslipidemia. Morbid obesity. Type 2 diabetes. Recommendation: I fully agree with the present treatment plan including bronchodilators. Continue diuretics. Nephrology to evaluate his acute on chronic kidney disease. Resume home meds for his atrial fibrillation and his underlying LV dysfunction. Chest x-ray was reviewed. We will continue to follow. Time with Patient: Greater than 30
[2021-01-31] MEDS ORDERED: INSULIN REGULAR 100 UNIT/ML VIAL IV ONE (18:36)
[2021-01-31] MEDS ORDERED: DEXTROSE 50% SYRINGE 50 ML IVP STA (18:36)
[2021-01-31 20:00] LABS: Glucose,Whole Blood 100 mg/dL (75-99)
[2021-01-31] MEDS: ATORVASTATIN 40 MG TAB PO SCH (20:05)
[2021-01-31] MEDS: TAMSULOSIN 0.4 MG CAP.ER.24H PO SCH (20:05)
[2021-01-31 21:22] LABS: Ferritin 99.2 ng/mL (22.0-322.0)
[2021-01-31 23:27] LABS: % Iron Saturation 9.42 (15.00-50.00)
[2021-02-01] MEDS: MIDODRINE 5 MG TAB PO SCH ×3 (05:16→17:26)
[2021-02-01 06:16] LABS: Glucose,Whole Blood 95 mg/dL (75-99)
[2021-02-01] MEDS: IPRATROPIUM-ALBUTEROL 3 ML NEB INHALATION SCH ×4 (07:16→19:24)
[2021-02-01] MEDS: BUDESONIDE 1 MG/2 ML NEBU INHALATION SCH ×2 (07:16→19:24)
[2021-02-01] MEDS: FORMOTEROL FUMARATE 20 MCG/2 ML NEBU INHALATION SCH ×2 (07:16→19:24)
[2021-02-01] MEDS: ARTIFICIAL TEARS-HYPROMELLOSE DROPS 15 ML BTL BOTH EYES SCH ×2 (08:54→20:04)
[2021-02-01] MEDS: AMMONIUM LACTATE 12% LOTION 225 GM BTL TOPICAL SCH (08:55)
[2021-02-01] MEDS: FERROUS SULFATE 325 MG TAB PO SCH (08:55)
[2021-02-01] MEDS: FOLIC ACID 1 MG TAB PO SCH (08:55)
[2021-02-01] MEDS: allopurinoL 300 MG TAB PO SCH (08:55)
[2021-02-01] MEDS: PANTOPRAZOLE 40 MG TABLET PO SCH (08:55)
[2021-02-01] MEDS: CYANOCOBALAMIN 500 MCG TAB PO SCH (08:55)
[2021-02-01] MEDS: LIDOCAINE 2% GEL 30 ML TUBE URETHRAL SCH ×2 (08:56→20:05)
--- NOTE | 2021-02-01 09:01 | ECHOF ---
Referral Reason:lv function, CHF MEASUREMENTS -------- HEIGHT: 185.4 cm WEIGHT: 172.8 kg BP: 91/55 RVIDd: 4.3 cm (< 3.3) IVSd: 1.6 cm (0.6 - 1.1) LVIDd: 4.8 cm (3.9 - 5.3) LVPWd: 1.8 cm (0.6 - 1.1) IVSs: 2.1 cm LVIDs: 3.0 cm LVPWs: 2.2 cm LA Diam: 4.5 cm (2.7 - 3.8) LAESV Index (A-L): 39.00 ml/m Ao Diam: 3.3 cm (2.0 - 3.7) AV Cusp: 1.9 cm (1.5 - 2.6) MV EXCURSION: 22.646 mm (> 18.000) MV EF SLOPE: 122 mm/s (70 - 150) EPSS: 0.3 cm AV maxP.37 mmHg AV meanP.21 mmHg RAP: 15.00 mmHg RVSP: 67.04 mmHg FINDINGS -------- Atrial fibrillation. This was a technically good study. The left ventricular size is normal. There is severe concentric left ventricular hypertrophy. Ove rall left ventricular systolic function is mildly impaired with, an EF between 45 - 50 %. Antersept al Hypokinesis The right ventricle is severely enlarged. LA is moderately dilated 34-39 ml/m2 The right atrium is normal in size. Interatrial and interventricular septum intact. There is mild aortic valve sclerosis. The mitral valve leaflets are mildly thickened. Mild mitral annular calcification present. Mild m itral regurgitation is present. Severe tricuspid regurgitation present. There is severe pulmonary hypertension. The right ventric ular systolic pressure, as measured by Doppler, is 67.04mmHg. Trace/mild (physiologic) pulmonic regurgitation. The aortic root size is normal. The inferior vena cava is dilated with no significant inspiratory collapse which is consistent estima howard right atrial pressure of >15 mmHg. There is no pericardial effusion. CONCLUSIONS -------- 1. The left ventricular size is normal. 2. There is severe concentric left ventricular hypertrophy. 3. Anterseptal Hypokinesis 4. The right ventricle is severely enlarged. 5. LA is moderately dilated 34-39 ml/m2 6. There is mild aortic valve sclerosis. 7. The mitral valve leaflets are mildly thickened. 8. Mild mitral annular calcification present. 9. Mild mitral regurgitation is present. 10. Severe tricuspid regurgitation present. 11. There is severe pulmonary hypertension. 12. The right ventricular systolic pressure, as measured by Doppler, is 67.04mmHg. 13. Trace/mild (physiologic) pulmonic regurgitation. 14. The inferior vena cava is dilated with no significant inspiratory collapse which is consistent es timated right atrial pressure of >15 mmHg. 15. There is no pericardial effusion. CONSULTANT INTERNSHIP: Alix Hayes RDCS
[2021-02-01] MEDS ORDERED: MIDODRINE 5 MG TAB PO ONE (09:07)
[2021-02-01 09:30] LABS: Calcium 8.7 mg/dL (8.4-10.2); Magnesium 3.4 mg/dL (1.6-2.3); Potassium 5.7 mmol/L (3.5-5.1)
[2021-02-01 12:00] LABS: Glucose,Whole Blood 93 mg/dL (75-99)
[2021-02-01] MEDS: AMIODARONE 200 MG TAB PO SCH ×2 (12:39→20:03)
[2021-02-01] MEDS: APIXABAN 5 MG TAB PO SCH ×2 (12:39→20:04)
[2021-02-01] MEDS: FUROSEMIDE 10 MG/ML 4 ML VIAL IV SCH ×2 (12:39→20:04)
[2021-02-01] MEDS: METOPROLOL TARTRATE 25 MG TAB PO SCH ×3 (12:49→23:16)
[2021-02-01] MEDS: HYDROcodone/APAP 5-325MG 1 EACH TAB PO PRN (12:54)
--- NOTE | 2021-02-01 13:31 | P.PN ---
Subjective Progress Note Date: 02/01/21 HISTORY OF PRESENT ILLNESS: 01/31/2021 This is a 60-year-old male with a past medical history significant for CHF, COPD, diabetes mellitus, chronic kidney disease, hypertension, hyperlipidemia, atrial fibrillation, and home oxygen. Patient follows with Dr. White. We have been asked to see the patient in consultation for congestive heart failure. Patient examined at the bedside. Patient was brought to the hospital from [facility] secondary to shortness of breath and hypoxia. The patient states he has been feeling short of breath for the last 3 days. He reports increased lower extremity edema as well. He denies chest pain or pressure. EKG reveals atrial flutter with controlled ventricular rate. Right axis deviation. Chest xray evidence of cardiomegaly with pulmonary venous congestion. No overt failure at this time. Small right pleural effusion noted. Laboratory data: WBC 4.9. Hemoglobin 9.9. Platelet count 193. Sodium 140. Potassium 5.6. BUN 88. Creatinine 3.70. Troponin 0.099. BNP 10,300. Current home cardiac medications include metoprolol 25 mg 3 times a day, Lasix 20 mg twice a day, Lipitor 40 mg daily, aspirin 81 mg daily, Eliquis 5 mg twice a day Most recent echocardiogram obtained in July 2020 revealed ejection fraction 45-50%, mild mitral regurgitation, moderate tricuspid regurgitation, and severe pulmonary hypertension 02/01/2021 Patient examined this morning at the bedside. Patient denies chest pain or pressure. He reports mild shortness of breath which she states is his baseline. He continues to have lower extremity edema. He remains on IV Lasix 40 mg every 12 hours. Telemetry reveals atrial fibrillation with uncontrolled ventricular rates. Patient is hypotensive this morning with a blood pressure of 81/45. He was started on Midodrine yesterday per nephrology. Echocardiogram completed reveals ejection fraction 45-50%, anterseptal hypokinesis, mild mitral regurgitation, severe tricuspid regurgitation, and severe pulmonary hypertension. Patient's Lasix was discontinued yesterday after the patient had a nosebleed. No further episodes of bleeding since. PHYSICAL EXAM: VITAL SIGNS: Reviewed. GENERAL: Well-developed in no acute distress. HEENT: Head is normocephalic. Pupils are equal, round. Sclerae anicteric. Mucous membranes of the mouth are moist. Neck supple. No JVD or thyromegaly LUNGS: Respirations even and unlabored. Lungs diminished bilaterally, patient unable to sit up at time of examination to listen to posterior lungs. HEART: Irregular rate and rhythm. S1 and S2 heard. ABDOMEN: Soft. Nondistended. Nontender. EXTREMITIES: Normal range of motion. No clubbing or cyanosis. Peripheral pulses intact. 2-3+ bilateral lower extremity edema NEUROLOGIC: Awake and alert. Oriented x 3. ASSESSMENT: Shortness of breath Acute exacerbation of chronic diastolic heart failure, ejection fraction 45-50% Acute on chronic kidney disease Abnormal troponin, secondary to chronic kidney disease, no evidence of acute coronary syndrome Chronic persistent atrial fibrillation, on anticoagulation with Eliquis Valvular heart disease: Mild mitral regurgitation and severe tricuspid regurgitation Severe pulmonary hypertension Hypertension Hyperlipidemia COPD on home O2 Diabetes mellitus PLAN: Nephrology following Resume Eliquis. Monitor for bleeding Increase Midodrine to 10mg TID Resume metoprolol Add amiodarone 200 mg twice a day Continue IV Lasix Daily weights Monitor kidney function Accurate I&O Continue telemetry monitoring Further recommendations pending patient's course Nurse practitioner note has been reviewed by physician. Signing provider agrees with the documented findings, assessment, and plan of care. Objective - Vital Signs Vital signs: Vital Signs Temp 98.5 F 02/01/21 12:56 Pulse 98 02/01/21 12:56 Resp 20 02/01/21 12:56 BP 99/64 02/01/21 12:56 Pulse Ox 94 L 02/01/21 12:56 Intake & Output 01/31/21 02/01/21 02/01/21 18:59 06:59 18:59 Intake Total 1490 440 Balance 1490 440 Weight 173 kg Intake: Intake, IV Titration 650 Amount Levofloxacin 500Mg-D5w 500 Pmx 500 mg In Dextrose/ Water 1 100ml.bag @ 100 mls/hr IVPB ONCE ONE Rx#: [id number] Sodium Chloride 0.9% 1, 150 000 ml @ 50 mls/hr IV . Q20H ONE Rx#:[id number] Oral 840 440 Other: Voiding Method Indwelling Catheter Indwelling Catheter - Labs CBC & Chem 7: 01/31/21 08:20 02/01/21 07:30 Labs: Abnormal Lab Results - Last 24 Hours (Table) 01/31/21 01/31/21 01/31/21 Range/Units 08:20 16:13 19:59 Potassium 5.7 H (3.5-5.1) mmol/L Carbon Dioxide (22-30) mmol/L BUN (9-20) mg/dL Creatinine (0.66-1.25) mg/dL POC Glucose (mg/dL) 100 H (75-99) mg/dL Magnesium (1.6-2.3) mg/dL Iron 26 L (65-175) ug/dL % Saturation 9.42 L (15.00-50.00) 02/01/21 02/01/21 Range/Units 00:30 07:30 Potassium 6.2 H* 5.7 H (3.5-5.1) mmol/L Carbon Dioxide 32 H (22-30) mmol/L BUN 90 H (9-20) mg/dL Creatinine 3.66 H (0.66-1.25) mg/dL POC Glucose (mg/dL) (75-99) mg/dL Magnesium 3.4 H (1.6-2.3) mg/dL Iron (65-175) ug/dL % Saturation (15.00-50.00) Microbiology - Last 24 Hours (Table) 01/30/21 12:02 Urine Culture - Final Urine,Voided 01/30/21 12:12 Blood Culture - Preliminary Blood No Growth after 24 hours 01/30/21 11:50 Blood Culture - Preliminary Blood No Growth after 24 hours
[2021-02-01] MEDS ORDERED: SODIUM POLYSTYRENE SULFONATE 15 GM/60 ML BOTTLE PO STA (14:21)
--- NOTE | 2021-02-01 15:04 | P.PN ---
Subjective Progress Note Date: 02/01/21 Follow-up for acute kidney injury. Objective - Vital Signs Vital signs: Vital Signs Temp 98.5 F 02/01/21 12:56 Pulse 98 02/01/21 12:56 Resp 20 02/01/21 12:56 BP 99/64 02/01/21 12:56 Pulse Ox 94 L 02/01/21 12:56 Intake & Output 01/31/21 02/01/21 02/01/21 18:59 06:59 18:59 Intake Total 1490 440 Balance 1490 440 Weight 173 kg Intake: Intake, IV Titration 650 Amount Levofloxacin 500Mg-D5w 500 Pmx 500 mg In Dextrose/ Water 1 100ml.bag @ 100 mls/hr IVPB ONCE ONE Rx#: [id number] Sodium Chloride 0.9% 1, 150 000 ml @ 50 mls/hr IV . Q20H ONE Rx#:[id number] Oral 840 440 Other: Voiding Method Indwelling Catheter Indwelling Catheter - Exam Exam limited secondary to Covid 19 pandemic and to limit PPE - Labs CBC & Chem 7: 01/31/21 08:20 02/01/21 07:30 Labs: Abnormal Lab Results - Last 24 Hours (Table) 01/31/21 01/31/21 01/31/21 Range/Units 08:20 16:13 19:59 Potassium 5.7 H (3.5-5.1) mmol/L Carbon Dioxide (22-30) mmol/L BUN (9-20) mg/dL Creatinine (0.66-1.25) mg/dL POC Glucose (mg/dL) 100 H (75-99) mg/dL Magnesium (1.6-2.3) mg/dL Iron 26 L (65-175) ug/dL % Saturation 9.42 L (15.00-50.00) 02/01/21 02/01/21 Range/Units 00:30 07:30 Potassium 6.2 H* 5.7 H (3.5-5.1) mmol/L Carbon Dioxide 32 H (22-30) mmol/L BUN 90 H (9-20) mg/dL Creatinine 3.66 H (0.66-1.25) mg/dL POC Glucose (mg/dL) (75-99) mg/dL Magnesium 3.4 H (1.6-2.3) mg/dL Iron (65-175) ug/dL % Saturation (15.00-50.00) Microbiology - Last 24 Hours (Table) 01/30/21 12:12 Blood Culture - Preliminary Blood No Growth after 48 hours 01/30/21 11:50 Blood Culture - Preliminary Blood No Growth after 48 hours 01/30/21 12:02 Urine Culture - Final Urine,Voided Assessment and Plan Assessment: #1 Acute kidney injury secondary to CRS. #2 chronic kidney disease stage IIIB/4 with a baseline creatinine 2.8-3.2 MG per DL. #3 hyperkalemia secondary to acute kidney injury/acidosis/hyperglycemia. #4 volume overload #5 acute on chronic systolic CHF. Plan: #1 renal function stable, potassium improving. #2 continue with diuretics. #3 avoid nephrotoxic agents and hypotensive episodes. #4 continue with midodrine for hemodynamic support. Random cortisol within normal limits.
--- NOTE | 2021-02-01 15:40 | PN ---
PROGRESS NOTE DATE OF SERVICE: 02/02/2012 This 60-year-old gentleman was admitted shortness of breath, possibly multifactorial COPD exacerbation and CHF exacerbation is being closely monitored at this time. Sensorium is slightly improved. Multiple consultants are following the patient closely. Dr. Govea also seen the patient yesterday. The patient also has significant gait dysfunction. Most recent chest x-ray is not available. The patient had hyperkalemia yesterday which is improved to 5.7 potassium today. Nephrology following the patient closely. PAST MEDICAL HISTORY: Reviewed. REVIEW OF SYSTEMS: CARDIOVASCULAR SYSTEM: No angina. RESPIRATORY: As mentioned earlier. GI: As mentioned earlier. : No dysuria. NERVOUS SYSTEM: No numbness or weakness. CURRENT MEDICATIONS: Reviewed include Tylenol. [place]. DuoNeb, zyloprim, Cordarone, Eliquis, Lipitor, Pulmicort, iron sulfate, folic acid, Lasix, Levaquin, Protonix, Flomax, Ambien. Doses reviewed. PHYSICAL EXAMINATION: The patient is alert and oriented x3. Pulse is 112, blood pressure is 99/60, respiration 20, temperature 98.2, pulse ox 94% on 4 L. HEENT: Conjunctivae normal. Oral mucosa moist. NECK: No jugular venous distention. No lymph node enlargement. CARDIOVASCULAR: S1, S2, muffled. No S3, no S4, RESPIRATORY: Diminished breath sounds at the bases. Bilateral scattered rhonchi and crackles. ABDOMEN: Soft, nontender. LEGS: No edema, no swelling. NERVOUS SYSTEM: Higher functions mentioned earlier. Moves all four limbs. No focal motor or sensory deficits. LABS: WBC 4.2, hemoglobin 10.9, potassium 5.7. ASSESSMENT: 1. Shortness of breath, possibly multifactorial with chronic obstructive pulmonary disease acute exacerbation as well as congestive heart failure acute exacerbation, ejection fraction unknown. 2. Acute on chronic renal failure with acute tubular necrosis. 3. Possible acute urinary tract infection with sepsis, cellulitis with sepsis present on admission. 4. Hyperkalemia. 5. History of noncompliance. 6. Anemia, normocytic anemia of chronic disease. 7. Troponin 0.0 90 indeterminate. 8. Hypoalbuminemia with mild protein calorie malnutrition. 9. History atrial fibrillation. 10.History of asthma. 11.History of chronic obstructive pulmonary disease. 12.Diabetes mellitus type 2. 13.Gastroesophageal reflux disease. 14.Hypertension. 15.Hyperlipidemia. 16.History of degenerative joint disease. 17.History of sleep apnea. 18.History of ESBL and MRSA from the urine. 19.Bilateral leg cellulitis. 20.Chronic kidney stage 3 to 4 baseline. 21.Indwelling Mccloud catheter for urinary retention. 22.Adenoidectomy. 23.Tonsillectomy. 24.Anxiety. 25.History of THC. 26.Morbid obesity with body mass index of 50.5. RECOMMENDATIONS: Recommend to continue to monitor, continue symptomatic treatment. Otherwise, at this time will monitor the patient closely. Continue with amiodarone. Otherwise, continue with broad-spectrum IV antibiotics. The cultures including the blood and urine negative so far. PT/OT evaluation. I would also recommend Kayexalate, low-potassium diet. Guarded prognosis. Further recommendations to follow. MMALYSSAL / SANGN: [id number] /
--- NOTE | 2021-02-01 16:23 | P.PN ---
Subjective Progress Note Date: 02/01/21 Principal diagnosis: Acute on chronic hypoxic referral failure, multifactorial. This is a 60-year-old white male, retirement resident. 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 Patient was brought in from the retirement because he would not keep his oxygen, and he does not keep his BiPAP, and he was noted to be hypoxic and altered mental status. Brought into the ER, chest x-ray and labs are suggestive of mild congestive heart failure. With elevated BNP and abnormal chest x-ray showing mild increase in interstitial congestion/markings. The patient was admitted, he was seen by cardiology on consultation, his EKG showed evidence of atrial flutter with controlled ventricular rate. His most recent echocardiogram in July 2020 showed ejection fraction of 45% with moderate tricuspid regurgitation and severe pulmonary hypertension. Patient was placed on oxygen, he is presently on 4 L nasal cannula, and O2 saturations 99%. He was also placed on Lasix at 40 mg IV push every 12 hours, and he was placed on bronchodilators in the form of DuoNeb, and Perforomist. As well as Pulmicort. Using my evaluation, the patient was feeling better compared to how he felt when he came in. Patient was reevaluated today on 02/01/2021, patient remains on diuretics, remains on bronchodilators, remains on 4 L nasal cannula, and his O2 saturation is 94%. Feeling better today, breathing easier, in no distress. Being followed by many consultants. Potassium is 5.7 BUN is 90 creatinine 3.66. This is being addressed by nephrology on the case. Objective - Vital Signs Vital signs: Vital Signs Temp 98.5 F 02/01/21 12:56 Pulse 108 H 02/01/21 15:31 Resp 20 02/01/21 12:56 BP 99/64 02/01/21 12:56 Pulse Ox 94 L 02/01/21 12:56 Intake & Output 01/31/21 02/01/21 02/01/21 18:59 06:59 18:59 Intake Total 1490 558 Balance 1490 558 Weight 173 kg Intake: Intake, IV Titration 650 Amount Levofloxacin 500Mg-D5w 500 Pmx 500 mg In Dextrose/ Water 1 100ml.bag @ 100 mls/hr IVPB ONCE ONE Rx#: [id number] Sodium Chloride 0.9% 1, 150 000 ml @ 50 mls/hr IV . Q20H ONE Rx#:[id number] Oral 840 558 Other: Voiding Method Indwelling Catheter Indwelling Catheter - Exam Physical Exam: Revealed a 60-year-old white male, obese, in no distress. On 4 L nasal cannula. O2 saturation is 94%. Hemodynamically stable, blood pressure 99/64 with a mean of 75 Head: Atraumatic, normocephalic. HEENT:[Neck is supple.] [No neck masses.] [No thyromegaly.] [No JVD.] Chest: Symmetrical chest expansion, diminished breath sounds at the bases, crackles at the bases. No rhonchi and no wheezes. Cardiac Exam: Irregular irregular rhythm, no S3 gallop, 2/6 systolic murmur thought the precordium. Abdomen: Obese, [Soft, nontender, no megaly, no rebound, no guarding, normal bowel sounds.] Extremities: [No clubbing, 2+ bipedal edema, no cyanosis.] Minutes distal pulses bilaterally. Neurological Exam: [No focal neurologic deficit.] Alert oriented 3, no gross focal deficits. Psychiatric: Normal mood affect and normal mental status examination. Skin: No rashes - Labs CBC & Chem 7: 01/31/21 08:20 02/01/21 07:30 Labs: Abnormal Lab Results - Last 24 Hours (Table) 01/31/21 01/31/21 01/31/21 Range/Units 08:20 16:13 19:59 Potassium 5.7 H (3.5-5.1) mmol/L Carbon Dioxide (22-30) mmol/L BUN (9-20) mg/dL Creatinine (0.66-1.25) mg/dL POC Glucose (mg/dL) 100 H (75-99) mg/dL Magnesium (1.6-2.3) mg/dL Iron 26 L (65-175) ug/dL % Saturation 9.42 L (15.00-50.00) 02/01/21 02/01/21 Range/Units 00:30 07:30 Potassium 6.2 H* 5.7 H (3.5-5.1) mmol/L Carbon Dioxide 32 H (22-30) mmol/L BUN 90 H (9-20) mg/dL Creatinine 3.66 H (0.66-1.25) mg/dL POC Glucose (mg/dL) (75-99) mg/dL Magnesium 3.4 H (1.6-2.3) mg/dL Iron (65-175) ug/dL % Saturation (15.00-50.00) Microbiology - Last 24 Hours (Table) 01/30/21 12:12 Blood Culture - Preliminary Blood No Growth after 48 hours 01/30/21 11:50 Blood Culture - Preliminary Blood No Growth after 48 hours 01/30/21 12:02 Urine Culture - Final Urine,Voided Assessment and Plan Assessment: Impression: Acute on chronic hypoxic respiratory failure, multifactorial. Acute systolic congestive heart failure. Chronic obstructive lung disease, relatively inactive. Normally on 2 L of oxygen at home. Acute on chronic kidney disease. Chronic atrial fibrillation. Severe pulmonary hypertension. Dyslipidemia. Morbid obesity. Type 2 diabetes. Recommendation: Continue bronchodilators. Continue diuretics. Nephrology evaluating his renal issue. Being followed by cardiology. Resume home meds for his atrial fibrillation and his underlying LV dysfunction. Will follow the patient on when necessary basis. Time with Patient: Less than 30
[2021-02-01 16:55] LABS: Glucose,Whole Blood 121 mg/dL (75-99)
[2021-02-01] MEDS: LEVOFLOXACIN 250MG-D5W PMX 250 MG in DEXTROSE/WATER 1 50ML.BAG IVPB SCH (17:26)
[2021-02-01 19:57] LABS: Glucose,Whole Blood 185 mg/dL (75-99)
[2021-02-01] MEDS: TAMSULOSIN 0.4 MG CAP.ER.24H PO SCH (20:03)
[2021-02-01] MEDS: ATORVASTATIN 40 MG TAB PO SCH (20:04)
[2021-02-02 06:03] LABS: Glucose,Whole Blood 108 mg/dL (75-99)
[2021-02-02] MEDS: MIDODRINE 5 MG TAB PO SCH ×3 (06:18→18:05)
[2021-02-02 07:43] LABS: Calcium 8.6 mg/dL (8.4-10.2); Potassium 5.1 mmol/L (3.5-5.1)
[2021-02-02 07:48] LABS: Anisocytosis Slight; HCT 30.5 % (39.0-53.0); HGB 8.7 gm/dL (13.0-17.5); Hypochromasia Marked; MCH 27.5 pg (25.0-35.0); MCHC 28.5 g/dL (31.0-37.0); MCV 96.5 fL (80.0-100.0); Macrocytosis Slight; Mean Platelet Volume 8.2; Platelet Count 149 k/uL (150-450); RBC 3.16 m/uL (4.30-5.90); WBC 4.9 k/uL (3.8-10.6)
[2021-02-02] MEDS ORDERED: diphenhydrAMINE 25 MG CAP PO PRN (09:00)
[2021-02-02] MEDS: FORMOTEROL FUMARATE 20 MCG/2 ML NEBU INHALATION SCH ×2 (09:06→20:14)
[2021-02-02] MEDS: BUDESONIDE 1 MG/2 ML NEBU INHALATION SCH ×2 (09:06→20:14)
[2021-02-02] MEDS: IPRATROPIUM-ALBUTEROL 3 ML NEB INHALATION SCH ×4 (09:07→20:14)
[2021-02-02 09:55] LABS: Eosinophils # (M) 0.39 k/uL (0-0.7); Lymphocytes # (M) 0.59 k/uL (1.0-4.8); Monocytes # (M) 0.49 k/uL (0-1.0); Myelocytes # (M) 0.05 k/uL (0); Myelocytes % 1 %; Neutrophils # (M) 3.48 k/uL (1.3-7.7); Neutrophils % (M) 71 %; Nucleated Red Blood Cells 1 /100 WBC (0-0); Total Cells Counted 200
[2021-02-02] MEDS: METOPROLOL TARTRATE 25 MG TAB PO SCH ×2 (09:56→16:23)
[2021-02-02] MEDS: AMIODARONE 200 MG TAB PO SCH ×2 (09:57→21:10)
[2021-02-02] MEDS: allopurinoL 300 MG TAB PO SCH (09:57)
[2021-02-02] MEDS: ARTIFICIAL TEARS-HYPROMELLOSE DROPS 15 ML BTL BOTH EYES SCH ×2 (09:57→21:11)
[2021-02-02] MEDS: AMMONIUM LACTATE 12% LOTION 225 GM BTL TOPICAL SCH (09:57)
[2021-02-02] MEDS: APIXABAN 5 MG TAB PO SCH ×2 (09:57→21:10)
[2021-02-02] MEDS: CYANOCOBALAMIN 500 MCG TAB PO SCH (09:57)
[2021-02-02] MEDS: FERROUS SULFATE 325 MG TAB PO SCH (09:57)
[2021-02-02] MEDS: LIDOCAINE 2% GEL 30 ML TUBE URETHRAL SCH ×2 (09:58→21:11)
[2021-02-02] MEDS: PANTOPRAZOLE 40 MG TABLET PO SCH (09:58)
[2021-02-02] MEDS: FUROSEMIDE 10 MG/ML 4 ML VIAL IV SCH ×2 (09:58→21:10)
[2021-02-02] MEDS: FOLIC ACID 1 MG TAB PO SCH (09:58)
--- NOTE | 2021-02-02 12:18 | P.PN ---
Subjective Progress Note Date: 02/02/21 HISTORY OF PRESENT ILLNESS: 01/31/2021 This is a 60-year-old male with a past medical history significant for CHF, COPD, diabetes mellitus, chronic kidney disease, hypertension, hyperlipidemia, atrial fibrillation, and home oxygen. Patient follows with Dr. White. We have been asked to see the patient in consultation for congestive heart failure. Patient examined at the bedside. Patient was brought to the hospital from [facility] secondary to shortness of breath and hypoxia. The patient states he has been feeling short of breath for the last 3 days. He reports increased lower extremity edema as well. He denies chest pain or pressure. EKG reveals atrial flutter with controlled ventricular rate. Right axis deviation. Chest xray evidence of cardiomegaly with pulmonary venous congestion. No overt failure at this time. Small right pleural effusion noted. Laboratory data: WBC 4.9. Hemoglobin 9.9. Platelet count 193. Sodium 140. Potassium 5.6. BUN 88. Creatinine 3.70. Troponin 0.099. BNP 10,300. Current home cardiac medications include metoprolol 25 mg 3 times a day, Lasix 20 mg twice a day, Lipitor 40 mg daily, aspirin 81 mg daily, Eliquis 5 mg twice a day Most recent echocardiogram obtained in July 2020 revealed ejection fraction 45-50%, mild mitral regurgitation, moderate tricuspid regurgitation, and severe pulmonary hypertension 02/01/2021 Patient examined this morning at the bedside. Patient denies chest pain or pressure. He reports mild shortness of breath which she states is his baseline. He continues to have lower extremity edema. He remains on IV Lasix 40 mg every 12 hours. Telemetry reveals atrial fibrillation with uncontrolled ventricular rates. Patient is hypotensive this morning with a blood pressure of 81/45. He was started on Midodrine yesterday per nephrology. Echocardiogram completed reveals ejection fraction 45-50%, anterseptal hypokinesis, mild mitral regurgitation, severe tricuspid regurgitation, and severe pulmonary hypertension. Patient's Lasix was discontinued yesterday after the patient had a nosebleed. No further episodes of bleeding since. 02/02/2021 Patient examined this morning at the bedside. He denies shortness of breath. He denies chest pain. He continues to have lower extremity edema. He complains of generalized itching that he states has been going on for 3 days. Patient r yrn in atrial fibrillation with controlled ventricular rate. Systolic blood pressure running in the 90s. PHYSICAL EXAM: VITAL SIGNS: Reviewed. GENERAL: Well-developed in no acute distress. HEENT: Head is normocephalic. Pupils are equal, round. Sclerae anicteric. Mucous membranes of the mouth are moist. Neck supple. No JVD or thyromegaly LUNGS: Respirations even and unlabored. Lungs diminished bilaterally, patient unable to sit up at time of examination to listen to posterior lungs. HEART: Irregular rate and rhythm. S1 and S2 heard. ABDOMEN: Soft. Nondistended. Nontender. EXTREMITIES: Normal range of motion. No clubbing or cyanosis. Peripheral pulses intact. 2-3+ bilateral lower extremity edema NEUROLOGIC: Awake and alert. Oriented x 3. ASSESSMENT: Shortness of breath Acute exacerbation of chronic diastolic heart failure, ejection fraction 45-50% Acute on chronic kidney disease Abnormal troponin, secondary to chronic kidney disease, no evidence of acute coronary syndrome Chronic persistent atrial fibrillation, on anticoagulation with Eliquis Valvular heart disease: Mild mitral regurgitation and severe tricuspid regurgitation Severe pulmonary hypertension Hypertension Hyperlipidemia COPD on home O2 Diabetes mellitus PLAN: Nephrology following Continue Eliquis for anticoagulation Continue current cardiac medications Continue IV Lasix Daily weights Monitor kidney function Accurate I&O Continue telemetry monitoring Further recommendations pending patient's course Nurse practitioner note has been reviewed by physician. Signing provider agrees with the documented findings, assessment, and plan of care. Objective - Vital Signs Vital signs: Vital Signs Temp 97.1 F L 02/02/21 08:00 Pulse 88 02/02/21 09:17 Resp 18 02/02/21 08:00 BP 106/68 02/02/21 08:00 Pulse Ox 99 02/02/21 08:00 Intake & Output 02/01/21 02/02/21 02/02/21 18:59 06:59 18:59 Intake Total 558 700 240 Output Total 900 Balance 558 -200 240 Weight 174 kg Intake: Oral 558 700 240 Output: Urine 900 Other: Voiding Method Indwelling Catheter Indwelling Catheter - Labs CBC & Chem 7: 02/02/21 07:09 02/02/21 07:09 Labs: Abnormal Lab Results - Last 24 Hours (Table) 02/01/21 02/01/21 02/02/21 Range/Units 16:54 19:56 06:02 RBC (4.30-5.90) m/uL Hgb (13.0-17.5) gm/dL Hct (39.0-53.0) % MCHC (31.0-37.0) g/dL RDW (11.5-15.5) % Plt Count (150-450) k/uL Lymphocytes # (Manual) (1.0-4.8) k/uL Myelocytes # (Manual) (0) k/uL Nucleated RBCs (0-0) /100 WBC Carbon Dioxide (22-30) mmol/L BUN (9-20) mg/dL Creatinine (0.66-1.25) mg/dL Glucose (74-99) mg/dL POC Glucose (mg/dL) 121 H 185 H 108 H (75-99) mg/dL 02/02/21 02/02/21 Range/Units 07:09 07:09 RBC 3.16 L (4.30-5.90) m/uL Hgb 8.7 L (13.0-17.5) gm/dL Hct 30.5 L (39.0-53.0) % MCHC 28.5 L (31.0-37.0) g/dL RDW 19.0 H (11.5-15.5) % Plt Count 149 L (150-450) k/uL Lymphocytes # (Manual) 0.59 L (1.0-4.8) k/uL Myelocytes # (Manual) 0.05 H (0) k/uL Nucleated RBCs 1 H (0-0) /100 WBC Carbon Dioxide 32 H (22-30) mmol/L BUN 88 H (9-20) mg/dL Creatinine 3.57 H (0.66-1.25) mg/dL Glucose 104 H (74-99) mg/dL POC Glucose (mg/dL) (75-99) mg/dL Microbiology - Last 24 Hours (Table) 01/30/21 12:12 Blood Culture - Preliminary Blood No Growth after 48 hours 01/30/21 11:50 Blood Culture - Preliminary Blood No Growth after 48 hours
[2021-02-02 12:31] LABS: Glucose,Whole Blood 111 mg/dL (75-99)
--- NOTE | 2021-02-02 13:20 | P.PN ---
Subjective Progress Note Date: 02/02/21 Follow-up for acute kidney injury. Objective - Vital Signs Vital signs: Vital Signs Temp 97.1 F L 02/02/21 08:00 Pulse 88 02/02/21 09:17 Resp 18 02/02/21 08:00 BP 106/68 02/02/21 08:00 Pulse Ox 99 02/02/21 08:00 Intake & Output 02/01/21 02/02/21 02/02/21 18:59 06:59 18:59 Intake Total 558 700 240 Output Total 900 Balance 558 -200 240 Weight 174 kg Intake: Oral 558 700 240 Output: Urine 900 Other: Voiding Method Indwelling Catheter Indwelling Catheter - Exam Exam limited secondary to Covid 19 pandemic and to limit PPE - Labs CBC & Chem 7: 02/02/21 07:09 02/02/21 07:09 Labs: Abnormal Lab Results - Last 24 Hours (Table) 02/01/21 02/01/21 02/02/21 Range/Units 16:54 19:56 06:02 RBC (4.30-5.90) m/uL Hgb (13.0-17.5) gm/dL Hct (39.0-53.0) % MCHC (31.0-37.0) g/dL RDW (11.5-15.5) % Plt Count (150-450) k/uL Lymphocytes # (Manual) (1.0-4.8) k/uL Myelocytes # (Manual) (0) k/uL Nucleated RBCs (0-0) /100 WBC Carbon Dioxide (22-30) mmol/L BUN (9-20) mg/dL Creatinine (0.66-1.25) mg/dL Glucose (74-99) mg/dL POC Glucose (mg/dL) 121 H 185 H 108 H (75-99) mg/dL 02/02/21 02/02/21 02/02/21 Range/Units 07:09 07:09 12:01 RBC 3.16 L (4.30-5.90) m/uL Hgb 8.7 L (13.0-17.5) gm/dL Hct 30.5 L (39.0-53.0) % MCHC 28.5 L (31.0-37.0) g/dL RDW 19.0 H (11.5-15.5) % Plt Count 149 L (150-450) k/uL Lymphocytes # (Manual) 0.59 L (1.0-4.8) k/uL Myelocytes # (Manual) 0.05 H (0) k/uL Nucleated RBCs 1 H (0-0) /100 WBC Carbon Dioxide 32 H (22-30) mmol/L BUN 88 H (9-20) mg/dL Creatinine 3.57 H (0.66-1.25) mg/dL Glucose 104 H (74-99) mg/dL POC Glucose (mg/dL) 111 H (75-99) mg/dL Microbiology - Last 24 Hours (Table) 01/30/21 12:12 Blood Culture - Preliminary Blood No Growth after 48 hours 01/30/21 11:50 Blood Culture - Preliminary Blood No Growth after 48 hours Assessment and Plan Assessment: #1 Acute kidney injury secondary to CRS. #2 chronic kidney disease stage IIIB/4 with a baseline creatinine 2.8-3.2 MG per DL. #3 hyperkalemia secondary to acute kidney injury/acidosis/hyperglycemia. #4 volume overload #5 acute on chronic systolic CHF. Plan: #1 renal function stable, potassium within normal limits #2 continue with diuretics. At discharge change to torsemide 40 mg by mouth daily #3 avoid nephrotoxic agents and hypotensive episodes. #4 continue with midodrine for hemodynamic support. Random cortisol within normal limits.
[2021-02-02] MEDS: LEVOFLOXACIN 250MG-D5W PMX 250 MG in DEXTROSE/WATER 1 50ML.BAG IVPB SCH (15:24)
--- NOTE | 2021-02-02 16:58 | PN ---
PROGRESS NOTE DATE OF SERVICE: 02/02/2021 This 60-year-old gentleman admitted with shortness of breath possibly multifactorial, COPD and CHF acute exacerbation. The patient is being closely monitored at this time. No chest pain. No palpitation. PHYSICAL EXAMINATION: Alert and oriented times three. Pulse is 80. Blood pressure 108/60, respiration 18, temperature 97.2, pulse ox 94% on 4 L. HEENT: Conjunctivae normal. NECK: No JVD. CARDIOVASCULAR: S1, S2. RESPIRATION: Breath sounds diminished in the bases. A few scattered rhonchi. ABDOMEN: Soft, nontender. LEGS are no edema. NERVOUS SYSTEM: No focal deficits. LABS: Hemoglobin 8.7, creatinine is 3.57. ASSESSMENT: 1. Shortness of breath possibly multifactorial with COPD acute exacerbation as well as CHF acute exacerbation with ejection fraction unknown. 2. Acute on chronic renal failure with acute tubular necrosis. 3. Possible acute urinary tract infection with cellulitis and sepsis, present on admission. 4. Hyperkalemia. 5. History of noncompliance. 6. Anemia, normocytic anemia of chronic disease. 7. Troponin 0.090 indeterminate. 8. Hypoalbuminemia with mild protein calorie malnutrition. 9. History of atrial fibrillation. 10.History of asthma. 11.History of chronic obstructive pulmonary disease. 12.Diabetes mellitus type 2. 13.Gastroesophageal reflux disease. 14.Hypertension. 15.Hyperlipidemia. 16.History of degenerative joint disease. 17.History of sleep apnea. 18.History of ESBL and MRSA in the urine. 19.Bilateral leg cellulitis. 20.Chronic kidney stage 3 to 4 baseline. 21.Indwelling Mccloud catheter for urinary retention. 22.Adenoidectomy. 23.Tonsillectomy. 24.Anxiety. 25.History of THC. 26.Morbid obesity with body mass index of 50.5. RECOMMENDATIONS AND DISCUSSION: Continue current medications. Monitor and symptomatic treatment. Otherwise, at this time, I recommend continue with current medications. See orders for details. Repeat labs. Continue monitoring. Cultures are negative so far. Further recommendations to follow. MMODL / IJN: [id number] /
[2021-02-02 17:39] LABS: Glucose,Whole Blood 105 mg/dL (75-99)
[2021-02-02 20:21] LABS: Glucose,Whole Blood 126 mg/dL (75-99)
[2021-02-02] MEDS: ATORVASTATIN 40 MG TAB PO SCH (21:10)
[2021-02-02] MEDS: TAMSULOSIN 0.4 MG CAP.ER.24H PO SCH (21:11)
[2021-02-03] MEDS: METOPROLOL TARTRATE 25 MG TAB PO SCH ×3 (01:01→17:36)
[2021-02-03 06:00] LABS: Glucose,Whole Blood 100 mg/dL (75-99)
[2021-02-03] MEDS: MIDODRINE 5 MG TAB PO SCH ×3 (06:11→17:36)
[2021-02-03] MEDS: IPRATROPIUM-ALBUTEROL 3 ML NEB INHALATION SCH ×4 (07:17→20:37)
[2021-02-03] MEDS: FORMOTEROL FUMARATE 20 MCG/2 ML NEBU INHALATION SCH ×2 (07:17→20:37)
[2021-02-03] MEDS: BUDESONIDE 1 MG/2 ML NEBU INHALATION SCH ×2 (07:17→20:37)
[2021-02-03] MEDS: allopurinoL 300 MG TAB PO SCH (09:46)
[2021-02-03] MEDS: FERROUS SULFATE 325 MG TAB PO SCH (09:47)
[2021-02-03] MEDS: CYANOCOBALAMIN 500 MCG TAB PO SCH (09:47)
[2021-02-03] MEDS: FOLIC ACID 1 MG TAB PO SCH (09:47)
[2021-02-03] MEDS: APIXABAN 5 MG TAB PO SCH ×2 (09:47→20:41)
[2021-02-03] MEDS: AMMONIUM LACTATE 12% LOTION 225 GM BTL TOPICAL SCH (09:47)
[2021-02-03] MEDS: ARTIFICIAL TEARS-HYPROMELLOSE DROPS 15 ML BTL BOTH EYES SCH ×2 (09:47→20:41)
[2021-02-03] MEDS: PANTOPRAZOLE 40 MG TABLET PO SCH (09:48)
[2021-02-03] MEDS: LIDOCAINE 2% GEL 30 ML TUBE URETHRAL SCH ×2 (09:48→20:41)
[2021-02-03 12:25] LABS: Glucose,Whole Blood 101 mg/dL (75-99)
[2021-02-03] MEDS: AMIODARONE 200 MG TAB PO SCH ×2 (12:26→20:41)
[2021-02-03] MEDS: FUROSEMIDE 10 MG/ML 4 ML VIAL IV SCH (12:26)
[2021-02-03 14:40] VITALS: BMI 51.0
--- NOTE | 2021-02-03 14:53 | PN ---
PROGRESS NOTE Patient is seen for followup for acute on top of chronic kidney disease. Serum creatinine was 3.57 yesterday, which is slightly lower than 3.6, however, mostly staying about the same. PHYSICAL EXAMINATION: On examination today, patient denies any significant complaints. Blood pressure is 104/68, heart rate 77 per minute. He is afebrile. EXAMINATION OF THE HEART: S1, S2. EXAMINATION OF LUNGS: Decreased breath sounds at bases. Abdomen is soft, morbidly obese. Examination of lower extremities shows chronic skin changes chronic edema bilaterally. 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 LABS: Labs show sodium 139, potassium 5.1, chloride 104, BUN 88, creatinine 3.57, hemoglobin 8.7. These labs are from 02/02/2021. ASSESSMENT: 1. Chronic kidney disease with element of acute kidney injury, cardiorenal, currently being diuresed. 2. Chronic kidney disease, stage 3B to 4. Baseline creatinine 2.8-3.2 mg/dL. 3. Acute on chronic systolic congestive heart failure. 4. Hyperkalemia associated with acute kidney injury, acidosis, hyperglycemia, currently improved. 5. Volume overload. PLAN: Continue with diuresis. Patient is advised that if he continues to have recurrent admissions or has recurrent CHF exacerbation, he may need to start dialysis over the next few months. Continue to encourage increased oral intake. Continue with the midodrine. MMODL / IJN: [id number] /
[2021-02-03] MEDS ORDERED: BENZOCAINE/MENTHOL LOZENG 1 EACH LOZENGE MUCOUS MEM PRN (14:55)
--- NOTE | 2021-02-03 15:32 | P.PN ---
Subjective This is a 60-year-old male with a past medical history significant for CHF, COPD, diabetes mellitus, chronic kidney disease, hypertension, hyperlipidemia, atrial fibrillation, and home oxygen. Patient follows with Dr. White. We have been asked to see the patient in consultation for congestive heart failure. Patient was brought to the hospital from [facility] secondary to shortness of breath and hypoxia. EKG reveals atrial flutter with controlled ventricular rate. Right axis deviation. Chest xray evidence of cardiomegaly with pulmonary venous congestion. No overt failure at this time. Small right pleural effusion noted. Laboratory data: WBC 4.9. Hemoglobin 9.9. Platelet count 193. Sodium 140. Potassium 5.6. BUN 88. Creatinine 3.70. Troponin 0.099. BNP 10,300. Current home cardiac medications include metoprolol 25 mg 3 times a day, Lasix 20 mg twice a day, Lipitor 40 mg daily, aspirin 81 mg daily, Eliquis 5 mg twice a day Most recent echocardiogram obtained in July 2020 revealed ejection fraction 45-50%, mild mitral regurgitation, moderate tricuspid regurgitation, and severe pulmonary hypertension 02/01/2021 Patient was hypotensive with blood pressure of 81/45. He was started on Midodrine yesterday per nephrology. Echocardiogram completed reveals ejection fraction 45-50%, anterseptal hypokinesis, mild mitral regurgitation, severe tricuspid regurgitation, and severe pulmonary hypertension. Patient's Lasix was discontinued yesterday after the patient had a nosebleed. No further episodes of bleeding since. 02/03/2021 Patient examined this morning at the bedside. He denies shortness of breath. He denies chest pain. He continues to have lower extremity edema. Patient remains in atrial fibrillation with controlled ventricular rate HR 70-80s. BP 104/68, aferile, maintaining oxygen saturations on 4L nasal cannula (he is on 3- 4L at home). Currently being maintained on amiodarone 200 mg twice a day, Eliquis 5 mg twice a day, atorvastatin 40 mg nightly, furosemide 40 mg twice a day, metoprolol titrate 25 mg Q8hr , midodrine 10 mg 3 times a day. PHYSICAL EXAM: VITAL SIGNS: Reviewed. GENERAL: Well-developed in no acute distress. HEENT: Head is normocephalic. No JVD or thyromegaly LUNGS: Respirations even and unlabored. Lungs diminished bilaterally, patient unable to sit up at time of examination to listen to posterior lungs. HEART: Irregular rate and rhythm. S1 and S2 heard. ABDOMEN: Soft. Nondistended. Nontender. EXTREMITIES: Normal range of motion. No clubbing or cyanosis. Peripheral pulses intact. 3+ bilateral lower extremity edema NEUROLOGIC: Awake and alert. Oriented x 3. ASSESSMENT: Shortness of breath Acute exacerbation of chronic diastolic heart failure, ejection fraction 45-50% Acute on chronic kidney disease Abnormal troponin, secondary to chronic kidney disease, no evidence of acute coronary syndrome Chronic persistent atrial fibrillation, on anticoagulation with Eliquis Valvular heart disease: Mild mitral regurgitation and severe tricuspid regurgi tation Severe pulmonary hypertension Hypertension Hyperlipidemia COPD on home O2 Diabetes mellitus PLAN: Decrease furosemide to 20mg BID Nephrology following Continue Eliquis for anticoagulation Daily weights Monitor kidney function Accurate I&O Continue telemetry monitoring Further recommendations pending patient's course Nurse practitioner note has been reviewed by physician. Signing provider agrees with the documented findings, assessment, and plan of care. Objective - Vital Signs Vital signs: Vital Signs Temp 98.2 F 02/03/21 09:45 Pulse 84 02/03/21 11:34 Resp 18 02/03/21 09:45 BP 104/68 02/03/21 10:34 Pulse Ox 97 02/03/21 09:45 Intake & Output 02/02/21 02/03/21 02/03/21 18:59 06:59 18:59 Intake Total 240 230 Balance 240 230 Weight 175.313 kg 175.313 kg Intake: Oral 240 230 Other: Voiding Method Indwelling Catheter Indwelling Catheter Indwelling Catheter - Labs CBC & Chem 7: 02/02/21 07:09 02/02/21 07:09 Labs: Abnormal Lab Results - Last 24 Hours (Table) 02/02/21 02/02/21 02/03/21 Range/Units 17:25 20:19 05:58 POC Glucose (mg/dL) 105 H 126 H 100 H (75-99) mg/dL 02/03/21 Range/Units 12:24 POC Glucose (mg/dL) 101 H (75-99) mg/dL Microbiology - Last 24 Hours (Table) 01/30/21 12:12 Blood Culture - Preliminary Blood No Growth after 96 hours 01/30/21 11:50 Blood Culture - Preliminary Blood No Growth after 96 hours
--- NOTE | 2021-02-03 16:02 | P.PN ---
Subjective Progress Note Date: 02/03/21 This is a 60-year-old male who was recently admitted with shortness of breath possibly multifactorial, chronic obstructive pulmonary disease, and congestive heart failure acute exacerbation and is being closely monitored. Nephrology also following as creatinine has remained elevated and patient is currently being diuresed. Patient remains on IV Lasix which has been decreased to 20 mg twice daily and will continue to monitor closely. Creatinine today slightly improved from yesterday and is 3.57, potassium is 5.1, sodium is 139 and hemoglobin is 8.7. Discussions of possible hemodialysis in the future although patient has not been agreeable to this as of yet. Review of systems: Constitutional: Reports fatigue and not sleeping well,no reports of fever, or chills Cardiovascular: No reports of chest pain or palpitations Respiratory:reports intermittent shortness of breath GI: No reports of nausea, vomiting, or diarrhea : No reports of dysuria or retention Neurovascular: Reports generalized weakness All medications have been reviewed Active Medications Acetaminophen (Acetaminophen Tab 325 Mg Tab) 650 mg PO Q8H PRN PRN Reason: Pain Hydrocodone Bitart/Acetaminophen (Hydrocodone/Apap 5-325mg 1 Each Tab) 1 each PO Q6HR PRN PRN Reason: Pain Last Admin: 02/01/21 12:54 Dose: 1 each Documented by: Albuterol/Ipratropium (Ipratropium-Albuterol 3 Ml Neb) 3 ml INHALATION RT-QID [facility] Last Admin: 02/03/21 11:21 Dose: 3 ml Documented by: Albuterol/Ipratropium (Ipratropium-Albuterol 3 Ml Neb) 3 ml INHALATION RT-QID PRN PRN Reason: Shortness Of Breath Or Wheezing Allopurinol (Allopurinol 300 Mg Tab) 300 mg PO DAILY [facility] Last Admin: 02/03/21 09:46 Dose: 300 mg Documented by: Amiodarone HCl (Amiodarone 200 Mg Tab) 200 mg PO BID [facility] Last Admin: 02/03/21 12:26 Dose: 200 mg Documented by: Apixaban (Apixaban 5 Mg Tab) 5 mg PO BID [facility] Last Admin: 02/03/21 09:47 Dose: 5 mg Documented by: Artificial Tears (Artificial Tears-Hypromellose Drops 15 Ml Btl) 2 drops BOTH EYES BID [facility] Last Admin: 02/03/21 09:47 Dose: 2 drops Documented by: Atorvastatin Calcium (Atorvastatin 40 Mg Tab) 40 mg PO HS [facility] Last Admin: 02/02/21 21:10 Dose: 40 mg Documented by: Benzocaine/Menthol (Benzocaine/Menthol Lozeng 1 Each Lozenge) 1 each MUCOUS MEM Q4HR PRN PRN Reason: Cough Budesonide (Budesonide 1 Mg/2 Ml Nebu) 1 mg INHALATION RT-BID [facility] Last Admin: 02/03/21 07:17 Dose: 1 mg Documented by: Cyanocobalamin (Cyanocobalamin 500 Mcg Tab) 500 mcg PO DAILY [facility] Last Admin: 02/03/21 09:47 Dose: 500 mcg Documented by: Darbepoetin Grant (Darbepoetin Grant 40 Mcg/0.4 Ml Syringe) 40 mcg SQ Q7D [facility] Last Admin: 01/31/21 13:39 Dose: 40 mcg Documented by: Diphenhydramine HCl (Diphenhydramine 25 Mg Cap) 25 mg PO TID PRN PRN Reason: Itching Ferrous Sulfate (Ferrous Sulfate 325 Mg Tab) 325 mg PO DAILY [facility] Last Admin: 02/03/21 09:47 Dose: 325 mg Documented by: Folic Acid (Folic Acid 1 Mg Tab) 0.5 mg PO DAILY [facility] Last Admin: 02/03/21 09:47 Dose: 0.5 mg Documented by: Formoterol Fumarate (Formoterol Fumarate 20 Mcg/2 Ml Nebu) 20 mcg INHALATION RT-BID [facility] Last Admin: 02/03/21 07:17 Dose: 20 mcg Documented by: Furosemide (Furosemide 10 Mg/Ml 2 Ml Vial) 20 mg IV Q12HR [facility] Levofloxacin/Dextrose 250 mg/ (IV Solution) 50 mls @ 50 mls/hr IVPB Q24H [facility] Last Admin: 02/02/21 15:24 Dose: 50 mls/hr Documented by: Lactic Acid (Ammonium Lactate 12% Lotion 225 Gm Btl) 1 applic TOPICAL DAILY [facility] Last Admin: 02/03/21 09:47 Dose: 1 applic Documented by: Lidocaine HCl (Lidocaine 2% Gel 30 Ml Tube) 1 applic URETHRAL BID [facility] Last Admin: 02/03/21 09:48 Dose: 1 applic Documented by: Metoprolol Tartrate (Metoprolol Tartrate 25 Mg Tab) 25 mg PO Q8HR [facility] Last Admin: 02/03/21 12:26 Dose: 25 mg Documented by: Midodrine (Midodrine 5 Mg Tab) 10 mg PO AC-TID [facility] Last Admin: 02/03/21 12:26 Dose: 10 mg Documented by: Pantoprazole Sodium (Pantoprazole 40 Mg Tablet) 40 mg PO DAILY [facility] Last Admin: 02/03/21 09:48 Dose: 40 mg Documented by: Tamsulosin HCl (Tamsulosin 0.4 Mg Cap.Er.24h) 0.4 mg PO HS [facility] Last Admin: 02/02/21 21:11 Dose: 0.4 mg Documented by: Zolpidem Tartrate (Zolpidem 5 Mg Tab) 2.5 mg PO HS PRN PRN Reason: Insomnia Objective - Vital Signs Vital signs: Vital Signs Temp 98.2 F 02/03/21 09:45 Pulse 84 02/03/21 11:34 Resp 18 02/03/21 09:45 BP 104/68 02/03/21 10:34 Pulse Ox 97 02/03/21 09:45 Intake & Output 02/02/21 02/03/21 02/03/21 18:59 06:59 18:59 Intake Total 240 230 Balance 240 230 Weight 175.313 kg 175.313 kg Intake: Oral 240 230 Other: Voiding Method Indwelling Catheter Indwelling Catheter Indwelling Catheter - Exam Gen: This is a 60-year-old male awake, alert and oriented 3, well-developed, well-nourished, obese. Temp is 98.2F, pulse is 86, respirations are 18, blood pressure is 88/53 with a repeat of 104/68 and oxygen saturation is 97% on 4 L via nasal cannula HEENT: Head is atraumatic, normocephalic. Pupils equal, round. Sclerae is anicteric. NECK: Supple. No JVD. No lymphadenopathy. No thyromegaly. LUNGS: Manage breath sounds laterally with some scattered rhonchi noted. No intercostal retractions. HEART: S1, S2 are muffled ABDOMEN: Soft. Bowel sounds are present. No masses. No tenderness. EXTREMITIES: No pedal edema. No calf tenderness. Bilateral lower extremity edema noted NEUROLOGICAL: Patient is awake, alert and oriented x3. No focal deficits. - Labs CBC & Chem 7: 02/02/21 07:09 02/02/21 07:09 Labs: Abnormal Lab Results - Last 24 Hours (Table) 02/02/21 02/02/21 02/03/21 Range/Units 17:25 20:19 05:58 POC Glucose (mg/dL) 105 H 126 H 100 H (75-99) mg/dL 02/03/21 Range/Units 12:24 POC Glucose (mg/dL) 101 H (75-99) mg/dL Microbiology - Last 24 Hours (Table) 01/30/21 12:12 Blood Culture - Preliminary Blood No Growth after 96 hours 01/30/21 11:50 Blood Culture - Preliminary Blood No Growth after 96 hours Assessment and Plan Assessment: Shortness of breath possibly multifactorial with COPD acute exacerbation as well as CHF acute exacerbation with ejection fraction unknown Acute on chronic renal failure with acute tubular necrosis Possible acute urinary tract infection with cellulitis and sepsis, present on admission Hyperkalemia History of noncompliance Anemia, normocytic anemia of chronic disease Troponin 0.090 indeterminate Hypoalbuminemia with mild protein calorie malnutrition History of atrial fibrillation history of asthma History of chronic obstructive pulmonary disease Diabetes mellitus type 2 Gastroesophageal reflux disease Hypertension Hyperlipidemia History of degenerative joint disease history of sleep apnea History of ESBL and MRSA in the urine Bilateral leg cellulitis Chronic kidney disease stage III to for baseline Indwelling Mccloud catheter for urinary retention Adenoidectomy Tonsillectomy Anxiety history of THC morbid obesity with a BMI of 51.0 Recommendations and discussion: Recommend to continue with current medications, management, and symptomatic treatment. Patient is maintained on IV Lasix which was decreased to 20 mg twice daily. Nephrology and Cardiology also following closely. Will repeat a.m. labs and continue to monitor closely. Social work following as patient will be returning to [facility] and discharged. Will discuss with nephrology and cardiology about treatment plan. Due to multiple complex medical issues, prognosis is guarded. Possible discharge in 24-48 hours.
[2021-02-03 17:12] LABS: Glucose,Whole Blood 124 mg/dL (75-99)
[2021-02-03] MEDS: LEVOFLOXACIN 250MG-D5W PMX 250 MG in DEXTROSE/WATER 1 50ML.BAG IVPB SCH (17:35)
[2021-02-03 20:22] LABS: Glucose,Whole Blood 128 mg/dL (75-99)
[2021-02-03] MEDS: TAMSULOSIN 0.4 MG CAP.ER.24H PO SCH (20:41)
[2021-02-03] MEDS: FUROSEMIDE 10 MG/ML 2 ML VIAL IV SCH (20:41)
[2021-02-03] MEDS: ATORVASTATIN 40 MG TAB PO SCH (20:41)
[2021-02-04] MEDS: METOPROLOL TARTRATE 25 MG TAB PO SCH ×2 (00:18→10:28)
[2021-02-04 06:19] LABS: Glucose,Whole Blood 103 mg/dL (75-99)
[2021-02-04] MEDS: MIDODRINE 5 MG TAB PO SCH ×2 (06:27→13:16)
[2021-02-04] MEDS: IPRATROPIUM-ALBUTEROL 3 ML NEB INHALATION SCH ×3 (07:46→15:29)
[2021-02-04] MEDS: BUDESONIDE 1 MG/2 ML NEBU INHALATION SCH (07:46)
[2021-02-04] MEDS: FORMOTEROL FUMARATE 20 MCG/2 ML NEBU INHALATION SCH (07:46)
[2021-02-04 09:22] LABS: Calcium 8.5 mg/dL (8.4-10.2); Potassium 4.2 mmol/L (3.5-5.1)
[2021-02-04 09:42] VITALS: TEMP 97.2
[2021-02-04] MEDS: allopurinoL 300 MG TAB PO SCH (10:28)
[2021-02-04] MEDS: AMIODARONE 200 MG TAB PO SCH (10:28)
[2021-02-04] MEDS: ARTIFICIAL TEARS-HYPROMELLOSE DROPS 15 ML BTL BOTH EYES SCH (10:29)
[2021-02-04] MEDS: CYANOCOBALAMIN 500 MCG TAB PO SCH (10:29)
[2021-02-04] MEDS: APIXABAN 5 MG TAB PO SCH (10:29)
[2021-02-04] MEDS: FOLIC ACID 1 MG TAB PO SCH (10:30)
[2021-02-04] MEDS: FERROUS SULFATE 325 MG TAB PO SCH (10:30)
[2021-02-04] MEDS: PANTOPRAZOLE 40 MG TABLET PO SCH (10:32)
[2021-02-04] MEDS: FUROSEMIDE 10 MG/ML 2 ML VIAL IV SCH (10:32)
[2021-02-04] MEDS: AMMONIUM LACTATE 12% LOTION 225 GM BTL TOPICAL SCH (11:04)
[2021-02-04] MEDS: LIDOCAINE 2% GEL 30 ML TUBE URETHRAL SCH (11:04)
[2021-02-04 11:49] LABS: Glucose,Whole Blood 101 mg/dL (75-99)
[2021-02-04 13:17] VITALS: BP 93/62
--- NOTE | 2021-02-04 13:19 | P.DS ---
Providers Date of admission: 01/30/21 15:05 Expected date of discharge: 02/04/21 Attending physician: Katrina Beltran Consults: 01/30/21 15:04 Consult Physician Urgent Consulting Provider: Giacomo Lucas Consult Reason/Comments: Acute kidney injury Do you want consulting provider notified?: Yes 01/30/21 20:57 Consult Physician Routine Consulting Provider: Vanessa Ross Consult Reason/Comments: chf Do you want consulting provider notified?: Yes Consult Physician Routine Consulting Provider: Isiah Govea Consult Reason/Comments: copd Do you want consulting provider notified?: Yes Primary care physician: Dejon Watson [facility] Course: Final diagnosis Shortness of breath possibly multifactorial with COPD acute exacerbation as well as CHF acute exacerbation with ejection fraction unknown Acute on chronic renal failure with acute tubular necrosis Possible acute urinary tract infection with cellulitis and sepsis, present on admission Hyperkalemia History of noncompliance Anemia, normocytic anemia of chronic disease Troponin 0.090 indeterminate Hypoalbuminemia with mild protein calorie malnutrition History of atrial fibrillation history of asthma History of chronic obstructive pulmonary disease Diabetes mellitus type 2 Gastroesophageal reflux disease Hypertension Hyperlipidemia History of degenerative joint disease history of sleep apnea History of ESBL and MRSA in the urine Bilateral leg cellulitis Chronic kidney disease stage III to for baseline Indwelling Mccloud catheter for urinary retention Adenoidectomy Tonsillectomy Anxiety history of THC morbid obesity with a BMI of 51.0 Discharge disposition Patient is being discharged in a stable condition with guarded prognosis to [facility] where he is a resident. Patient will follow-up with Dr. Watson in the outpatient setting upon discharge. Patient will also need to follow-up with nephrology outpatient. Patient to continue with antibiotics in the form of Levaquin daily for the next 3 days to complete the course. Recommend repeat labs in 2-3 days to monitor kidney functions. Total time taken is greater than 35 minutes. Hospital course This is a 60-year-old male who was recently admitted with shortness of breath possibly multifactorial, chronic obstructive pulmonary disease, and congestive heart failure acute exacerbation and is being closely monitored. Nephrology also following as creatinine has remained elevated and patient is currently being diuresed. Patient remains on IV Lasix which has been decreased to 20 mg twice daily and will continue to monitor closely. Creatinine today slightly improved from yesterday and is 3.57, potassium is 5.1, sodium is 139 and hemoglobin is 8.7. Discussions of possible hemodialysis in the future although patient has not been agreeable to this as of yet. 02/04/2021 Patient continues with generalized edema and has been transitioned to Demadex and will continue 20 mg daily and will need outpatient follow-up with nephr olmodey. Kidney functions continue to be elevated and current creatinine is 3.37 with a BUN of 87 and multiple conversations have been had between nephrology and the patient with the possibility of hemodialysis although patient has not been agreeable to this at this time. Patient will need recommended repeat labs in a few days to monitor kidney functions and outpatient follow-up with nephrology. Patient will also continue on oral antibiotics in the form of Levaquin 250 mg daily for the next 3 days to complete the course. [facility] and will be discharged today. Currently no reports of chest pain, shortness of breath, or palpitations. Patient is afebrile. No reports of nausea or vomiting and patient is tolerating diet. Patient will be going to [facility] today. Guarded prognosis On exam vital signs are stable. Cardio S1, S2 are muffled. Respiratory system shows diminished breath sounds at the bases with no wheezing or rhonchi noted. Abdomen is soft and obese, and nontender. Nervous system shows diffuse weakness. Please refer to medication reconciliation sheet for a list of medications. Patient Condition at Discharge: Fair Plan - Discharge Summary Discharge Rx Participant: No New Discharge Prescriptions: New Torsemide [Demadex] 20 mg PO DAILY 30 Days #30 tablet Ipratropium-Albuterol Nebulize [Duoneb 0.5 mg-3 mg/3 ml Soln] 3 ml INHALATION RT-QID PRN ml PRN Reason: Shortness Of Breath Or Wheezing Ipratropium-Albuterol Nebulize [Duoneb 0.5 mg-3 mg/3 ml Soln] 3 ml INHALATION RT-QID ml Levofloxacin [Levaquin] 250 mg PO DAILY 3 Days #3 tab Formoterol Fumarate [Perforomist] 20 mcg INHALATION RT-BID nebu Midodrine [ProAmatine] 10 mg PO AC-TID tab Budesonide [Pulmicort] 1 mg INHALATION RT-BID ml Benzocaine/Menthol Lozeng [Cepacol lozenge] 1 each MUCOUS MEM Q4HR PRN lozenge PRN Reason: Cough Amiodarone [Cordarone] 200 mg PO BID tab Continue Allopurinol [Zyloprim] 300 mg PO DAILY Ferrous Sulfate [Iron (65 MG Elemental)] 325 mg PO DAILY Folic Acid 0.4 mg PO DAILY Cyanocobalamin [Vitamin B-12] 500 mcg PO DAILY Acetaminophen Tab [Tylenol] 650 mg PO Q8H PRN #0 PRN Reason: Pain Lidocaine 2% Gel [Xylocaine Jelly 2%] 1 applic URETHRAL BID Artificial Tears-Hypromellose [Artificial Tear Drops] 2 drops BOTH EYES BID Apixaban [Eliquis] 5 mg PO BID Tamsulosin HCl [Flomax] 0.4 mg PO HS Atorvastatin [Lipitor] 40 mg PO HS Ammonium Lactate Lotion [Lac-Hydrin 12% Lotion] 1 applic TOPICAL DAILY Metoprolol Tartrate [Lopressor] 25 mg PO Q8HR #90 tab Omeprazole 20 mg PO DAILY Darbepoetin Grant [Aranesp] 60 mcg SQ WOOD@0900 Zolpidem [Ambien] 2.5 mg PO HS PRN #4 tab PRN Reason: Insomnia Discontinued Fluticasone/Salmeterol [Advair 250-50 Diskus] 1 puff INHALATION RT-BID Aspirin [Adult Low Dose Aspirin EC] 81 mg PO DAILY Ipratropium-Albuterol Nebulize [Duoneb 0.5 mg-3 mg/3 ml Soln] 3 ml INHALATION RT-Q8H PRN PRN Reason: Shortness Of Breath Furosemide [Lasix] 20 mg PO BID@0900,1700 Discharge Medication List Allopurinol [Zyloprim] 300 mg PO DAILY 06/26/20 [History] Cyanocobalamin [Vitamin B-12] 500 mcg PO DAILY 06/26/20 [History] Ferrous Sulfate [Iron (65 MG Elemental)] 325 mg PO DAILY 06/26/20 [History] Folic Acid 0.4 mg PO DAILY 06/26/20 [History] Acetaminophen Tab [Tylenol] 650 mg PO Q8H PRN #0 07/05/20 [Rx] Ammonium Lactate Lotion [Lac-Hydrin 12% Lotion] 1 applic TOPICAL DAILY 01/17/21 [History] Apixaban [Eliquis] 5 mg PO BID 01/17/21 [History] Artificial Tears-Hypromellose [Artificial Tear Drops] 2 drops BOTH EYES BID 01/17/21 [History] Atorvastatin [Lipitor] 40 mg PO HS 01/17/21 [History] Lidocaine 2% Gel [Xylocaine Jelly 2%] 1 applic URETHRAL BID 01/17/21 [History] Tamsulosin HCl [Flomax] 0.4 mg PO HS 01/17/21 [History] Metoprolol Tartrate [Lopressor] 25 mg PO Q8HR #90 tab 01/24/21 [Rx] Darbepoetin Grant [Aranesp] 60 mcg SQ WOOD@0900 01/30/21 [History] Omeprazole 20 mg PO DAILY 01/30/21 [History] Amiodarone [Cordarone] 200 mg PO BID tab 02/04/21 [Rx] Benzocaine/Menthol Lozeng [Cepacol lozenge] 1 each MUCOUS MEM Q4HR PRN lozenge 02/04/21 [Rx] Budesonide [Pulmicort] 1 mg INHALATION RT-BID ml 02/04/21 [Rx] Formoterol Fumarate [Perforomist] 20 mcg INHALATION RT-BID nebu 02/04/21 [Rx] Ipratropium-Albuterol Nebulize [Duoneb 0.5 mg-3 mg/3 ml Soln] 3 ml INHALATION RT-QID ml 02/04/21 [Rx] Ipratropium-Albuterol Nebulize [Duoneb 0.5 mg-3 mg/3 ml Soln] 3 ml INHALATION RT-QID PRN ml 02/04/21 [Rx] Levofloxacin [Levaquin] 250 mg PO DAILY 3 Days #3 tab 02/04/21 [Rx] Midodrine [ProAmatine] 10 mg PO AC-TID tab 02/04/21 [Rx] Torsemide [Demadex] 20 mg PO DAILY 30 Days #30 tablet 02/04/21 [Rx] Zolpidem [Ambien] 2.5 mg PO HS PRN #4 tab 02/04/21 [Rx] Follow up Appointment(s)/Referral(s): Dejon Watson MD [Primary Care Provider] - 1-2 days Activity/Diet/Wound Care/Special Instructions: Patient is going to [facility] as tolerated Continue with antibiotics for 3 days and then may discontinue Repeat labs in 2-3 days to monitor kidney functions Continue Demadex daily as prescribed Follow-up with nephrology outpatient with the possibility of dialysis if kidney functions do not improve and when patient is agreeable Patient needs aggressive continued PT/OT therapy Continue current renal diet low potassium, low phosphorus, low sodium with 1500 ml per day fluid restriction Continue with local wound care of [employer] to the sacral area
[2021-02-04 15:38] VITALS: PULSE 81; RESP 17
--- NOTE | 2021-02-04 16:16 | PN ---
PROGRESS NOTE Patient is seen for followup for CKD and acute kidney injury. He is currently being diuresed. There are plans for discharge. No significant complaints. I have discussed with the patient regarding his repeated admissions and possible need for starting dialysis on his next admission. His renal function remains fairly impaired, with creatinine about 3.3 to 3.7 mg/dL and GFR at about 17 mL/minute, but given the repeated admissions for either CHF/volume overload or volume depletion, he might benefit from starting renal replacement therapy. This will also help improve some degree of underlying subtle uremia which may be present. PHYSICAL EXAMINATION: On examination today, blood pressure is 93/62, heart rate 92 per minute. He is afebrile. EXAMINATION OF THE HEART: S1 and S2. EXAMINATION OF LUNGS: Decreased breath sounds at bases. ABDOMEN: Soft, morbidly obese. Examination of lower extremities shows chronic skin changes. No significant edema noted currently. IN [employer] exam is grossly intact. LABS: Sodium 139, potassium 4.2, chloride 102. CO2 is 33, BUN 87, creatinine 3.37. ASSESSMENT: 1. Acute kidney injury, cardiorenal, currently stable, slightly improved. 2. Chronic kidney disease, NKF stage IV, with creatinine now staying mostly around 2.8 to 3 mg/dL at baseline. 3. Hypotension, maintained on midodrine 10 mg t.i.d. 4. Volume overload, currently improved. 5. Anemia, maintained on Aranesp; mostly anemia of chronic disease. PLAN: Patient can be discharged on Demadex 20 mg daily. Follow up with labs in about one week's time and consider starting renal replacement therapy on next admission if it is within another month's time. MMODL / IJN: [id number] /
== END 2021-02-04 15:45 | DRG 291 ==
LOC: EC 11:20 → 3SCARD 15:05
PROVIDERS: ADMIT Hospitalist; ATTEND Hospitalist
DX: I13.0 Hypertensive heart and chronic kidney disease with heart failure and stage 1 through stage 4 chronic kidney disease, or unspecified chronic kidney disease (principal); N17.0 Acute kidney failure with tubular necrosis; I50.43 Acute on chronic combined systolic (congestive) and diastolic (congestive) heart failure; J96.21 Acute and chronic respiratory failure with hypoxia; A41.9 Sepsis, unspecified organism; J44.1 Chronic obstructive pulmonary disease with (acute) exacerbation; I48.92 Unspecified atrial flutter; E44.1 Mild protein-calorie malnutrition; L03.115 Cellulitis of right lower limb; L03.116 Cellulitis of left lower limb; N18.4 Chronic kidney disease, stage 4 (severe); Z68.43 Body mass index [BMI] 50.0-59.9, adult; E87.2 Acidosis; N39.0 Urinary tract infection, site not specified; I48.19 Other persistent atrial fibrillation; Z20.822 Contact with and (suspected) exposure to COVID-19; Z79.82 Long term (current) use of aspirin; Z79.01 Long term (current) use of anticoagulants; Z87.891 Personal history of nicotine dependence; Z82.62 Family history of osteoporosis; Z83.3 Family history of diabetes mellitus; Z82.5 Family history of asthma and other chronic lower respiratory diseases; Z82.49 Family history of ischemic heart disease and other diseases of the circulatory system; E78.5 Hyperlipidemia, unspecified; E87.5 Hyperkalemia; D63.1 Anemia in chronic kidney disease; K21.9 Gastro-esophageal reflux disease without esophagitis; Z86.14 Personal history of Methicillin resistant Staphylococcus aureus infection; N40.1 Benign prostatic hyperplasia with lower urinary tract symptoms; R33.9 Retention of urine, unspecified; E66.01 Morbid (severe) obesity due to excess calories; F41.9 Anxiety disorder, unspecified; I27.20 Pulmonary hypertension, unspecified; Z99.81 Dependence on supplemental oxygen; Z91.19 Patient's noncompliance with other medical treatment and regimen; I08.1 Rheumatic disorders of both mitral and tricuspid valves; I95.9 Hypotension, unspecified; I87.8 Other specified disorders of veins; R04.0 Epistaxis; E11.22 Type 2 diabetes mellitus with diabetic chronic kidney disease; E11.65 Type 2 diabetes mellitus with hyperglycemia; Z86.19 Personal history of other infectious and parasitic diseases
CPT/HCPCS: 36415; 71046; 76770; 80048; 80053; 81001; 82533; 82728; 83540; 83550; 83605; 83735; 83880; 84132; 84484; 85025; 85610; 85730; 87040; 87086; 87635; 93005; 93306; 94640; 94760; 99285